=== PATIENT | female | born 1950 | race Caucasian/White ===

== ENCOUNTER 2016-10-19 18:04 | Inpatient (IN) | payer BC, OTHER ==
[~2016-10-19] VITALS: Ht 162.6 cm; Wt 83.4 kg
[2016-10-19] MEDS ORDERED: NURSING VERBAL MED ORDER ONE ×4 (21:45→23:00)
[2016-10-19] MEDS ORDERED: ACETAMINOPHEN 325 MG TAB PO PRN (22:00)
[2016-10-19] MEDS ORDERED: GLUCOSE 10 TABS/TUBE PO PRN (22:15)
[2016-10-19] MEDS ORDERED: DEXTROSE 50% 50 ML SYR IV PRN (22:15)
[2016-10-19] MEDS ORDERED: GLUCOSE 40% GEL 15 GM TUBE PO PRN (22:15)
[2016-10-19] MEDS ORDERED: GLUCAGON FOR INJ 1 MG VIAL SQ PRN (22:15)
[2016-10-19] MEDS ORDERED: HEPARIN IV LOW DOSE NO BOLUS SCH (22:15)
[2016-10-19 22:22] VITALS: BMI 35.8
--- NOTE | 2016-10-19 22:39 | DIAGNOSTIC IMAGING REPORT ---
SINGLE VIEW CHEST CLINICAL HISTORY: Pneumonia. FINDINGS: An AP, portable, upright chest radiograph is obtained. No prior studies are available for comparison at the time of dictation. The examination is degraded by portable technique and patient rotation. The cardiomediastinal silhouette is unremarkable. There is atherosclerotic calcification of the thoracic aorta. Left basilar atelectasis is observed. The lungs and pleural spaces are otherwise clear. No pneumothorax is seen. The skeletal structures are osteopenic. The bony thorax is grossly intact. IMPRESSION: No acute cardiopulmonary abnormality. Electronically signed by: Hermelindo Cowart M.D. 10/19/2016 10:38 PM Dictated Date/Time: 10/19/2016 10:36 PM
[2016-10-19] MEDS ORDERED: HEPARIN 25,000 UNIT/500ML D5W 500 ML IV PRN (22:45)
[2016-10-19] MEDS ORDERED: ONDANSETRON INJ 2 MG/ML 2 ML VIAL IV PRN (22:45)
[2016-10-19] MEDS ORDERED: SODIUM CHLORIDE 0.9% 1000ML 1,000 ML IV SCH (22:45)
[2016-10-19 22:50] LABS: HEMATOCRIT 25.6 % (37-47); MEAN CELL VOLUME 90.8 fL (80-100); MEAN CORPUSCULAR HEMOGLOBIN 30.5 pg (25-34); MEAN PLATELET VOLUME 9.3 fL (7.4-10.4); PLATELET COUNT 525 K/uL (130-400); RED BLOOD COUNT 2.82 M/uL (4.2-5.4); WHITE BLOOD COUNT 21.35 K/uL (4.8-10.8)
[2016-10-19] MEDS ORDERED: CIPROFLOXACIN 500 MG TAB PO SCH (23:00)
[2016-10-19] MEDS ORDERED: INSULIN ASPART 100 UNITS/ML 3 ML PEN SC ONE (23:00)
[2016-10-19] MEDS ORDERED: DILT240C57 PO (23:01)
[2016-10-19] MEDS ORDERED: CIPR1TAB11 PO (23:01)
[2016-10-19] MEDS ORDERED: CHOL1CAP57 PO (23:01)
[2016-10-19] MEDS ORDERED: FOLI1TAB7 PO (23:01)
[2016-10-19] MEDS ORDERED: FAMO20TA11 PO (23:01)
[2016-10-19] MEDS ORDERED: GLIP1TAB85 PO (23:01)
[2016-10-19] MEDS ORDERED: NVLG SQ (23:01)
[2016-10-19] MEDS ORDERED: INSDGI SC (23:01)
[2016-10-19] MEDS ORDERED: HYDR-5688 PO (23:01)
[2016-10-19] MEDS ORDERED: ONDA8TAB62 SL (23:01)
[2016-10-19] MEDS ORDERED: DOCU-94 PO (23:01)
[2016-10-19 23:06] LABS: MEAN CORPUSCULAR HGB CONC 33.6 g/dl (32-36)
[2016-10-19 23:07] LABS: INR 1.3 (0.9-1.1); PARTIAL THROMBOPLASTIN RATIO 2.1; PROTHROMBIN TIME (PATIENT) 13.7 SECONDS (9.0-12.0)
[2016-10-19 23:12] VITALS: BP 147/90; PULSE 126; TEMP 36.8; O2SAT 99; BMI 35.8
[2016-10-19 23:12] LABS: BUN/CREATININE RATIO 19.1 (10-20); CALCIUM 7.9 mg/dl (8.5-10.1); CREATININE 1.1 mg/dl (0.60-1.20); MAGNESIUM 1.6 mg/dl (1.8-2.4); PHOSPHORUS 2.8 mg/dl (2.5-4.9); POTASSIUM 3.9 mmol/L (3.5-5.1)
[2016-10-19] MEDS ORDERED: ETHYL CHLORIDE AER SPR 100 ML CAN EXT PRN (23:15)
[2016-10-19 23:17] LABS: ANISOCYTOSIS PRESENT; BASO % 0.1 %; BASO ABS # 0.03 K/uL (0-0.2); COMPLETE YES; DOHLE BODIES 1+; IG% 0.6 %; LYMPH % 3.3 %; MONO % 4.4 %; NEUT % 91.6 %; POLYCHROMASIA 1+
[2016-10-19] MEDS ORDERED: MAGNESIUM SULFATE 1GM / D5W 1 GM in PREMIXED IN D5W 100 ML IV STA (23:41)
[2016-10-19] MEDS: NSS + 20MEQ KCL 1000ML 1,000 ML IV SCH (23:52)
[2016-10-20] VITALS (20 sets, daily range): BP systolic 94–146; BP diastolic 52–94; PULSE 100–120; TEMP 36.7–38.7; O2SAT 90–100; Ht 162.6 cm; Wt 83.4 kg
--- NOTE | 2016-10-20 04:03 | CONSULTATION REPORT ---
DATE OF CONSULTATION: 10/19/2016 PRIMARY CARE PHYSICIAN: Dr. Nuñez, out of area. CONSULT REQUESTED BY: Dr. Car for medical management of the patient with septic left knee joint with atrial fibrillation. HISTORY OF PRESENT COMPLAINT: She is a 66-year-old female with significant past medical history of hypertension, hyperlipidemia, diabetes, on insulin, peripheral vascular disease with venous insufficiency and also atrial fibrillation. Apparently, has had amputation of medial 3 toes on the right side on 29 of September in [facility]. She has had a prolonged hospital course and following that, she went to rehab at [facility]. She stayed there until this morning. She was on physical therapy but has not been doing well on the physical therapy because of ongoing pain and swelling of the left leg, especially the knee joint. She complains to have more pain and warmth of the left knee joint for the last few days or even a week. No history of fever, chills or rigors associated with it but she gets extreme pain when any pressure on the left leg and for that reason, she was taken to the [facility] today and there, she was noted to have tachycardia with atrial fibrillation and RVR and also left knee was noted to be probably septic with a white count of 22,000, left shift and ESR of 104. The orthopaedic surgeon in the [facility] was consulted and the patient was transferred to be under their care and medicine was consulted for ongoing medical management. The patient denies history of any chest pain, any palpitation, any shortness of breath on the floor. She does not have any nausea, vomiting or any abdominal pain or distention. She complains to have pain in the left knee joint when any kind of movement with swelling of the left knee joint as well. She does have some pain in the right foot but no other significant symptoms. PAST MEDICAL HISTORY: Significant for hypertension, hyperlipidemia, peripheral vascular disease with venous insufficiency, atrial fibrillation and osteoarthritis. PAST SURGICAL HISTORY: Left total knee arthroplasty, I believe in 1999, cataract surgery and vein stripping and also recent amputation of the right medial 3 toes on 19 of September in [facility]. ALLERGIES: SHE IS ALLERGIC TO RASHAAD INHIBITOR, LIPITOR, ZOCOR, ONGLYZA, VANCOMYCIN AND ZOSYN. FAMILY HISTORY: Nothing contributory at this time. SOCIAL HISTORY: She was in the rehab facility recently. She denies any tobacco and/or alcohol use or drug use. She used to live alone independently. MEDICATIONS: Noted in the chart, Cardizem CD 240 mg daily, Cipro 500 mg every 12 hours, Colace 100 mg twice daily, folic acid 1 mg daily, Glucotrol XL 10 mg daily, Lantus 18 units twice a day, [place] 5/325 one every 4 hours as needed, NovoLog 4 times daily as directed, Pepcid 20 mg, vitamin D 1000 units daily and Zofran 4 mg oral as directed. She received 1 dose of Invanz at the hospital facility there. REVIEW OF SYSTEMS: As in history of present complaint. PHYSICAL EXAMINATION: GENERAL: On examination on the medical floor, she was not having any acute distress. She looked generally weak and lethargic but no confusion. VITAL SIGNS: Still pending but vitals from the prior hospital, heart rate was 104 and irregular, blood pressure 149/86, respirations 18 and saturation 95% on room air. HEENT: Unremarkable. NECK: Supple. No JVD, no bruit. CHEST: Decreased breath sounds bilaterally, otherwise clear. HEART: S1, S2 irregular with a 2/6 systolic murmur over precordium. ABDOMEN: Soft, benign, nontender, no organomegaly. Bowel sounds present. EXTREMITIES: Trace edema both sides, more on the right than the left. Left knee joint is swollen with increased local temperature and extremely painful with any kind of movement. Right foot medial aspect is bandaged with status post medial 3 toes taken off on 19 of September and showing a deep necrotic ulceration at the base but no drainage. Pulses are not palpable on either side. CENTRAL NERVOUS SYSTEM: Alert, awake, oriented, generally weak. LABORATORY DATA: Noted from [facility] today, white count was 22,000, hemoglobin 8.28 and hematocrit 25.5, platelet was 492. Protime 18.5, INR 1.7, PTT was 44. Sodium 130, chloride 92, glucose 275. UA examination: Protein 3+, blood 2+, glucose 3+, ketones 2+, bacteria 2+. Urine culture, wound culture, blood culture have been sent. X-ray of the knee is no fracture with fluid in the knee joint. Ultrasound of the left lower extremity, no DVT. EKG is pending. Chest x-ray portable one is pending right now. I cannot find any electrolyte that was done in the hospital. IMPRESSION AND PLAN: 1. Septic arthritis involving left knee. The patient was admitted to telemetry unit under orthopedic service. Ortho has been notified and mostly, they will aspirate the joint and go from there. We will hold off any kind of antibiotic at this time.ID consultation will be taken as well. 2. Atrial fibrillation with rapid ventricular response. She was on Coumadin. Her INR is 1.7. We will put her on low-dose heparin without any bolus while in the hospital. Continue with her Cardizem in the hospital as well for rate control. 3. Hypertension. Blood pressure seems to be stable. Continue with current medications. 4. Right foot toe amputations. We will get wound care consult for that. Wound culture has been taken. We will await for that sensitivity. 5. Diabetes. The patient has been on insulin, which is on hold now. We will put her on sliding scale coverage while in the hospital. Get a hemoglobin A1c tomorrow. 6. Peripheral vascular disease. The patient may have significant the peripheral vascular disease and we may need to consult vascular surgery while in the hospital for further evaluation. 7. Gastrointestinal prophylaxis with Protonix. 8. Deep venous thrombosis prophylaxis. The patient will be on heparin. We will hold off any Coumadin at this time. 9. Code status. She will be a full code. Thank you for this consultation. I will be following this patient with you during this hospitalization. DEB
[2016-10-20 06:05] LABS: HEMATOCRIT 24.1 % (37-47); MEAN CELL VOLUME 89.9 fL (80-100); MEAN CORPUSCULAR HEMOGLOBIN 29.9 pg (25-34); MEAN CORPUSCULAR HGB CONC 33.2 g/dl (32-36); MEAN PLATELET VOLUME 9.3 fL (7.4-10.4); PLATELET COUNT 487 K/uL (130-400); RED BLOOD COUNT 2.68 M/uL (4.2-5.4); WHITE BLOOD COUNT 20.18 K/uL (4.8-10.8)
[2016-10-20 06:44] LABS: THYROID STIMULATING HORMONE 0.61 uIu/ml (0.300-4.500)
[2016-10-20 07:09] LABS: ESTIMATED AVERAGE GLUCOSE 174 mg/dl; HA1C FLAG Normal (Normal)
[2016-10-20] MEDS ORDERED: FAMOTIDINE 20 MG TAB PO SCH (09:00)
[2016-10-20] MEDS ORDERED: DOCUSATE SODIUM 100 MG CAP PO SCH (09:00)
[2016-10-20] MEDS: NSS + 20MEQ KCL 1000ML 1,000 ML IV SCH ×2 (09:58→20:54)
[2016-10-20] MEDS: DILTIAZEM HCL 240 MG CAPCR PO SCH (10:13)
[2016-10-20] MEDS: INSULIN ASPART 100 UNITS/ML 3 ML PEN SC SCH ×5 (10:15→23:36)
--- NOTE | 2016-10-20 10:22 | Medical Consult ---
Consultation Date of Consultation: Oct 20, 2016. Attending Physician: Prasanna Car D.O. Reason for Consultation: Septic left knee History of Present Illness Patient is a 66-year-old diabetic female who was transferred to [facility] from [facility] in [place] for concerns of septic left TKA. The patient does also have history of peripheral vascular disease. She had an amputation completed of her 1st 3 toes on the right foot on September 29 at [facility]. Following her hospitalization, she was transferred to a rehab facility. During the time at the rehab facility, the patient states that she generally became more ill. She started have sweats, chills, nausea, and vomiting. She states that over the past few days, she has noted increased swelling in her left knee. She was not experiencing any pain initially in the knee. Upon presentation to [facility], the patient was noted to be tachycardic with atrial fibrillation [place] a [place] [address] with an ESR of 104. The patient was transferred have that time to [facility] for concerns of left septic TKA. The patient did have her knee replaced [place] [address] Ibarra. Since admission to [facility], the patient was noted to have a white blood cell count of 21.35. Her ESR today is 20. Her C reactive protein was 41 her creatinine was 1.10 on admission. She did have an aspiration completed of her left knee by Christ Newton PA-C. It was noted that there are many red blood cells and white blood cells in the synovial fluid. Culture is pending. She was placed on p.o. Cipro. I did discuss this patient with Christ Newton as well from orthopedics. The patient's chest x-ray showed no acute process. Past Medical/Surgical History Medical Problems: (1) Atrial fibrillation (2) Septic arthritis of knee, left (3) PVD (4) Diabetes Surgical Hx: Left knee replacement (1999) Right great, 2nd and 3rd toe amputations (2016) Family History Noncontributory Social History Smoking Status: Never Smoker Allergies Coded Allergies: RASHAAD Inhibitors (Verified Allergy, Unknown, RASH, 10/19/16) unknown reaction Atorvastatin (Verified Allergy, Unknown, rash, 10/19/16) unknown reaction Ertapenem (Verified Allergy, Unknown, rash, 10/19/16) unknown reaction Piperacillin (Verified Allergy, Unknown, rash, 10/19/16) Saxagliptin (Verified Allergy, Unknown, rash, 10/19/16) unknown reaction Simvastatin (Verified Allergy, Unknown, rash, 10/19/16) unknown reaction Tazobactam (Verified Allergy, Unknown, rash, 10/19/16) Vancomycin (Verified Allergy, Unknown, rash, 10/19/16) Home Medications Reported Home Medications Medications Dose Route/Sig Max Daily Dose Days Date Category Dose Instructions Novolog (Insulin Aspart) 100 Units/Ml Inj SQ QID 10/19/16 Reported Vitamin D3 (Cholecalciferol) 1,000 Unit Cap PO DAILY 10/19/16 Reported Zofran Odt (Ondansetron HCl) 8 Mg Soltab 4 Mg SL Q4H PRN 10/19/16 Reported Pepcid (Famotidine) 20 Mg Tab 20 Mg PO 10/19/16 Reported [place] 5MG/325MG (Acetaminophen/Hydrocodone Bitart) Tab 1 Tab PO Q4 30 10/19/16 Reported PRN PAIN Lantus (Insulin Glargine) 100 Unit/Ml Inj 18 SC BID 10/19/16 Reported Glucotrol Xl (Glipizide) 10 Mg Tab 10 Mg PO QAM 10/19/16 Reported Cipro (Ciprofloxacin) 250 Mg Tab 500 Mg PO Q12 10/19/16 Reported Folvite (Folic Acid) 1 Mg Tab 1 Tab PO DAILY 90 10/19/16 Reported Colace (Docusate Sodium) 100 Mg Cap 1 Cap PO BID 15 10/19/16 Reported Cardizem Cd (Diltiazem Hcl Coated Beads) 240 Mg Cap 1 Cap PO DAILY 30 10/19/16 Reported Current Inpatient Medications Current Inpatient Medications Medications (Trade) Dose Ordered Sig/Denisse Route Start Time Stop Time Status Last Admin Dose Admin Insulin Aspart (novoLOG ASPART) SLIDING SCALE G... ACHS SC 10/20/16 07:00 11/19/16 06:59 Acetaminophen (Tylenol Tab) 650 mg Q4H PRN PO 10/19/16 22:00 11/18/16 21:59 Glucose (Glucose 40% Gel) 15-30 GRAMS 15 GRAMS... UD PRN PO 10/19/16 22:15 11/18/16 22:14 Glucose (Glucose Chew Tab) 4-8 Tablets 4 Tabl... UD PRN PO 10/19/16 22:15 11/18/16 22:14 Dextrose (Dextrose 50% 50ML Syringe) 25-50ML OF 50% DW IV FOR... UD PRN IV 10/19/16 22:15 11/18/16 22:14 Glucagon (Glucagon Inj) 1 mg UD PRN SQ 10/19/16 22:15 11/18/16 22:14 Ondansetron HCl 4 mg 4 mg Q4H PRN IV 10/19/16 22:45 11/18/16 22:44 Heparin Sodium/ Dextrose (Heparin 25,000 Unit/500ml D5W) 500 ml @ 17 mls/hr Q24H PRN IV 10/19/16 22:45 11/18/16 22:44 Hydromorphone HCl (Dilaudid Inj) 0.2 mg Q4H PRN IV 10/19/16 22:45 11/02/16 22:44 Diltiazem HCl (Cardizem Cd Cap) 240 mg DAILY PO 10/20/16 09:00 11/19/16 08:59 Ciprofloxacin (Cipro Tab) 500 mg Q12 PO 10/19/16 23:00 10/21/16 22:59 Docusate Sodium (coLACE CAP) 100 mg BID PO 10/20/16 09:00 11/19/16 08:59 Glipizide (GlipiZIDE EXTENDED REL TAB) 10 mg DAILY PO 10/20/16 09:00 11/19/16 08:59 Famotidine (Pepcid Tab) 20 mg DAILY PO 10/20/16 09:00 11/19/16 08:59 Acetaminophen/ Hydrocodone Bitart ([place] 5/325 Tab) 1 tab Q4H PRN PO 10/19/16 23:00 11/02/16 22:59 Folic Acid (Folvite Tab) 1 mg DAILY PO 10/20/16 09:00 11/19/16 08:59 Ethyl Chloride 1 ml 1 ml UD PRN EXT 10/19/16 23:15 10/20/16 18:00 Potassium Chloride/Sodium Chloride (Nss + 20meq KCl 1000ml) 1,000 ml @ 100 mls/hr Q10H IV 10/19/16 23:45 11/18/16 23:44 10/19/16 23:52 100 MLS/HR Review of Systems Constitutional: + chills, + sweats, + weakness, No fever Eyes: No worsening of vision ENT: No hearing loss Respiratory: No cough, No shortness of breath Cardiovascular: No chest pain Abdomen: + pain, + vomiting, No diarrhea Musculoskeletal: + joint pain, + problem reported (recent right foot amputation ), + swelling (left knee) Genitourinary - Female: No dysuria, No urinary frequency, No urinary urgency Integumentary: No itch, No rash Physical Exam Date Time Temp Pulse Resp B/P Pulse Ox O2 Delivery O2 Flow Rate FiO2 10/20/16 07:22 37.0 110 30 142/94 90 Room Air 10/20/16 04:10 93 Room Air 10/20/16 04:00 36.9 109 21 135/77 95 Room Air 10/20/16 02:47 36.9 10/20/16 02:10 138/74 10/20/16 00:00 Nasal Cannula 2.0 10/20/16 00:00 38.7 105 22 145/92 98 Nasal Cannula 2.5 10/19/16 23:12 36.8 126 18 147/90 99 Nasal Cannula 2.0 General Appearance: WD/WN, + mild distress Head: normocephalic, atraumatic Eyes: normal inspection, sclerae normal ENT: hearing grossly normal Neck: supple, trachea midline Respiratory/Chest: chest non-tender, lungs clear, normal breath sounds, no respiratory distress, no accessory muscle use Cardiovascular: + systolic murmur (very soft), + irregularly irregular Abdomen/GI: normal bowel sounds, non tender, soft Extremities/Musculoskelatal: + pertinent finding (left knee wrapped with RASHAAD badnage. Tenderness of surrounding areas. Right foot wrapped with gauze.) Neurologic/Psych: alert, normal mood/affect Skin: normal color, warm/dry Laboratory Results SINGLE VIEW CHEST CLINICAL HISTORY: Pneumonia. FINDINGS: An AP, portable, upright chest radiograph is obtained. No prior studies are available for comparison at the time of dictation. The examination is degraded by portable technique and patient rotation. The cardiomediastinal silhouette is unremarkable. There is atherosclerotic calcification of the thoracic aorta. Left basilar atelectasis is observed. The lungs and pleural spaces are otherwise clear. No pneumothorax is seen. The skeletal structures are osteopenic. The bony thorax is grossly intact. IMPRESSION: No acute cardiopulmonary abnormality. Item Value Date Time Gram Stain Received 10/20/16 0852 Joint Fluid/Space (Synovial) Knee Left Pending Last 24 Hours Test 10/19/16 22:04 10/19/16 22:40 10/20/16 05:45 10/20/16 06:36 Bedside Glucose 329 mg/dl 321 mg/dl White Blood Count 21.35 K/uL 20.18 K/uL Red Blood Count 2.82 M/uL 2.68 M/uL Hemoglobin 8.6 g/dL 8.0 g/dL Hematocrit 25.6 % 24.1 % Mean Corpuscular Volume 90.8 fL 89.9 fL Mean Corpuscular Hemoglobin 30.5 pg 29.9 pg Mean Corpuscular Hemoglobin Concent 33.6 g/dl 33.2 g/dl Platelet Count 525 K/uL 487 K/uL Mean Platelet Volume 9.3 fL 9.3 fL Neutrophils (%) (Auto) 91.6 % Lymphocytes (%) (Auto) 3.3 % Monocytes (%) (Auto) 4.4 % Eosinophils (%) (Auto) 0.0 % Basophils (%) (Auto) 0.1 % Neutrophils # (Auto) 19.54 K/uL Lymphocytes # (Auto) 0.70 K/uL Monocytes # (Auto) 0.95 K/uL Eosinophils # (Auto) 0.00 K/uL Basophils # (Auto) 0.03 K/uL RDW Standard Deviation 50.0 fL 49.2 fL RDW Coefficient of Variation 15.0 % 15.0 % Immature Granulocyte % (Auto) 0.6 % Immature Granulocyte # (Auto) 0.13 K/uL Dohle Bodies 1+ Polychromasia 1+ Anisocytosis PRESENT Prothrombin Time 13.7 SECONDS Prothromb Time International Ratio 1.3 Activated Partial Thromboplast Time 55.6 SECONDS 53.1 SECONDS Partial Thromboplastin Ratio 2.1 2.0 Sodium Level 133 mmol/L Potassium Level 3.9 mmol/L Chloride Level 93 mmol/L Carbon Dioxide Level 26 mmol/L Anion Gap 14.0 mmol/L Blood Urea Nitrogen 21 mg/dl Creatinine 1.10 mg/dl Est Creatinine Clear Calc Drug Dose 55.3 ml/min Estimated GFR () 60.2 Estimated GFR (Non- 51.9 BUN/Creatinine Ratio 19.1 Random Glucose 299 mg/dl Calcium Level 7.9 mg/dl Phosphorus Level 2.8 mg/dl Magnesium Level 1.6 mg/dl Hepatitis C Antibody Screen NEG Erythrocyte Sedimentation Rate 20 mm/hr Estimated Average Glucose 174 mg/dl Hemoglobin A1c 7.7 % C-Reactive Protein 41.00 mg/dl Thyroid Stimulating Hormone (TSH) 0.610 uIu/ml Test 10/20/16 08:25 Assessment & Plan Diabetic female with probable left septic TKA, probable wound infection of the right lower extremity amputation site with exposed bone, gram positive bacteremia confirmed from [facility] cultures, and sepsis. She is currently on PO Cipro alone. She has multiple allergies, so will start IV Daptomycin, Cefepime, and Flagyl. Wound culture of right lower extremity amputation site ordered. Repeat blood cultures ordered. Also recommend that this patient be evaluated by orthopedics for right foot amputation site infection as well. Echocardiogram also ordered. Noted aspirate of left knee pendingWe will follow this patient. Plan: 1. Repeat blood cultures 2. Wound culture right foot amputation site- Need Orthopedics to evaluate right foot amputation site as well- likely osteomyelitis/wound infection with exposed bone 3. Follow left knee culture 4. Echo 5. Start IV Cefepime, Flagyl, and Daptomycin pending cultures 6. D/C PO Cipro case reviewed and agree with above assessment, will continue IV abx and follow cultures
[2016-10-20 11:23] LABS: FLUID APPEARANCE CLOUDY; FLUID RBC (A) 385000 /uL; FLUID WBC (A) 299800 /uL
[2016-10-20 11:24] LABS: FLUID MONONUC 34.9 %; FLUID POLYNUC 65.1 %
[2016-10-20 11:25] LABS: FLUID MONONUCLEAR MAN 34.9 %; FLUID POLYNUCLEAR MAN 65.1 %
[2016-10-20] MEDS: CEFEPIME IV 2,000 MG in DEXTROSE 5% 100ML 100 ML IV SCH ×2 (12:20→23:42)
[2016-10-20] MEDS: DAPTOmycin IV 375 MG in SODIUM CHLORIDE 0.9% 50ML 50 ML IV SCH (12:20)
[2016-10-20] MEDS: METRONIDAZOLE / NSS 500 MG in PREMIXED NSS 100 ML IV SCH ×2 (12:20→19:23)
--- NOTE | 2016-10-20 12:41 | HISTORY & PHYSICAL EXAMINATION ---
DATE OF ADMISSION: 10/19/2016 SUBJECTIVE AND CHIEF COMPLAINT: Left knee pain. HISTORY OF PRESENT ILLNESS: This is a patient who was admitted at [facility] in [place] for left knee pain and possible infected total knee arthroplasty. She had also had previous procedures done in [facility] on her right foot with amputations of the 2nd, 3rd and 4th toes. That procedure was on 09/29/2016. Approximately 4 days ago, she started having significant pain within the left knee and inability to ambulate or perform any range of motion of left knee. It was felt that she had probable infected total knee on the left side. Blood cultures were also done at the hospital. The hospital then was in touch with Dr. Car from our practice to set up a transfer to [facility] for evaluation of the left knee. PAST MEDICAL HISTORY: Hypertension, hyperlipidemia, peripheral vascular disease with venous insufficiency, atrial fibrillation, osteoarthritis and diabetes. PAST SURGICAL HISTORY: Left total knee arthroplasty in 1999, cataract surgery, vein stripping surgery, right toe amputations done in September of this year. ALLERGIES: RASHAAD INHIBITORS, LIPITOR, ZOCOR, ONGLYZA, VANCOMYCIN AND ZOSYN. FAMILY HISTORY: Noncontributory. SOCIAL HISTORY: The patient denies alcohol and tobacco use. CURRENT HOME MEDICATIONS: Cardizem CD 240 mg daily, Cipro 500 mg p.o. q. 12 hours, Colace 100 mg p.o. b.i.d., folic acid 1 mg p.o. daily, Glucotrol XL 10 mg 1 p.o. daily, Lantus 18 units subcu b.i.d., NovoLog 4 times a day as directed, Pepcid 20 mg p.o. daily, vitamin D supplement 1000 units p.o. daily, Zofran 4 mg 1 p.o. p.r.n. nausea, and [place] 5/325 mg 1 p.o. q. 4 hours as needed. OBJECTIVE PHYSICAL EXAMINATION: GENERAL: The patient is alert and oriented x3. She is in no acute distress. She is lying fairly comfortably in bed in the ICU. She appears to be a well-nourished 66-year-old female. CARDIOVASCULAR: Heart has an irregularly irregular rhythm with a systolic murmur noted. LUNGS: Clear to auscultation bilaterally, however, decreased breath sounds. VASCULAR: Cap refill is slow bilateral lower extremities. Dorsalis pedis pulses are faint. LYMPHATICS: There is no evidence of any swollen lymph nodes. MUSCULOSKELETAL: Upon inspection of the patient's left lower extremity, there is mild effusion noted to left knee. There is no erythema noted. There is warmth noted with light palpation of the left knee. With any range of motion or with any palpation of left knee, there is significant pain elicited. There are no open areas or draining areas noted of the left knee. She has well-healed surgical incisions at the anterior aspect of the left knee. Right lower extremity, there is exposed bone noted at the sites of the toe amputations. The patient has a dressing over the right lower extremity with a soft gauze dressing with gauze wrap over top. NEUROLOGIC: Sensation appears to be normal and intact in bilateral lower extremities to light touch. ASSESSMENT AND DIAGNOSES: 1. Septic left knee status post left total knee arthroplasty in 04/[address] Ibarra. 2. Probable osteomyelitis and infection of the right lower extremity status post toe amputation of the 2nd, 3rd and 4th toes done in [facility] approximately 1 month ago with exposed bone on the right foot. 3. Bacteremia, probably secondary to the wound at the right lower extremity and also probably the reason for the infected left total knee arthroplasty. Also positive blood cultures from [facility] and repeat blood cultures are being performed now at [facility]. PLAN: Above assessment was discussed with the patient. Today, under sterile technique, the patient's left knee was aspirated with an 18-gauge needle. Approximately 25 mL of a purulent bermudez and bloody aspirate were aspirated from the left knee. The aspirate was then sent for cell count, Gram stain, and aerobic and anaerobic cultures. The Gram stain was positive for gram-positive cocci and many white blood cells. The case will be discussed with Dr. Car as well as Dr. Ibarra. After the patient is cleared medically for surgery, she will require left knee I\T\D with poly exchange versus left knee I\T\D and explanting of left total knee arthroplasty. Her right lower extremity will also need to be addressed with probable transmetatarsal amputation. At this time, we will have Dr. Botello consulted to evaluate the patient's blood flow into her right lower extremity to check for viability of the transmetatarsal amputation on the right lower extremity. Once all information has been obtained, surgical plan will be made for both lower extremities. At this time, she will continue to be treated with IV antibiotics per ID. As all information is gathered, definitive treatment will be determined and surgical management will be scheduled. DEB
[2016-10-20] MEDS ORDERED: NURSING VERBAL MED ORDER ONE ×2 (15:45→17:00)
[2016-10-20] MEDS ORDERED: DILTIAZEM HCL 5 MG/ML 5 ML VIAL ONE (15:54)
[2016-10-20] MEDS ORDERED: PHARMACY GLYCEMIC MGMT CONSULT PRN (15:55)
[2016-10-20] MEDS ORDERED: DILTIAZEM HCL INJ 125 MG in DEXTROSE 5% 100ML IV PRN (16:00)
[2016-10-20] MEDS ORDERED: DILTIAZEM HCL 5 MG/ML 5 ML VIAL IV SCH (16:00)
[2016-10-20] MEDS ORDERED: SODIUM CHLORIDE 0.9% 1000ML 1,000 ML IV SCH (16:00)
[2016-10-20] MEDS ORDERED: METOPROLOL TARTRATE 1 MG/ML VIAL ONE (16:21)
--- NOTE | 2016-10-20 16:24 | Pharmacy Progress Note ---
Glycemic Control Intl Consult Date of Service Oct 20, 2016. Scope Glycemic Pharmacist consulted by Dr Betancourt on 10/20/16 for glycemic control and to write orders per [facility] inpatient glycemic control protocol Objective Weight (Kilograms): 94.900 Accuchecks BSG (last 24hrs): Test 10/19/16 22:04 10/19/16 22:40 10/20/16 06:36 10/20/16 11:24 Bedside Glucose 329 mg/dl (70-90) 321 mg/dl (70-90) 265 mg/dl (70-90) Random Glucose 299 mg/dl (70-99) Test 10/20/16 15:57 10/20/16 15:58 Bedside Glucose 260 mg/dl (70-90) Laboratory Data (last 24hrs) Test 10/19/16 22:40 10/20/16 05:45 10/20/16 15:57 Anion Gap 14.0 mmol/L BUN/Creatinine Ratio 19.1 Blood Urea Nitrogen 21 mg/dl Creatinine 1.10 mg/dl Potassium Level 3.9 mmol/L Sodium Level 133 mmol/L White Blood Count 21.35 K/uL 20.18 K/uL Red Blood Count 2.82 M/uL Hemoglobin 8.6 g/dL Hematocrit 25.6 % Mean Corpuscular Volume 90.8 fL Mean Corpuscular Hemoglobin 30.5 pg Mean Corpuscular Hemoglobin Concent 33.6 g/dl Platelet Count 525 K/uL Mean Platelet Volume 9.3 fL Neutrophils (%) (Auto) 91.6 % Lymphocytes (%) (Auto) 3.3 % Monocytes (%) (Auto) 4.4 % Eosinophils (%) (Auto) 0.0 % Basophils (%) (Auto) 0.1 % Neutrophils # (Auto) 19.54 K/uL Lymphocytes # (Auto) 0.70 K/uL Monocytes # (Auto) 0.95 K/uL Eosinophils # (Auto) 0.00 K/uL Basophils # (Auto) 0.03 K/uL Hemoglobin A1c 7.7 % HbA1c Test 10/20/16 05:45 Hemoglobin A1c 7.7 % (4.5-5.6) H Recent Pertinent Medications Outpatient Anti-diabetic Regimen: * Lantus 18 units BID + Glipizide XL 10 mg PO daily + moderate sliding scale of Novolog * A1c = 7.7 % 10/20/16 The patient is currently receiving: * Correctional Insulin: Novolog Correction per scale ACHS Goal Range: Low 110 mg/dL - High 140 mg/dL Correction Factor: 25 mg/dL/unit * Prandial insulin: Per carb ratio of 1 unit per 15 grams CHO consumed Risk Factors for Insulin Resistance: * Steroids: * Infection: septic TKA * Pressors: * IVF: NS + 20 KCL at 100 mls/hr + antibiotics (daptomycin, cefepime, metronidazole) + diltiazem gtt + heparin gtt * Recent Surgery: aspiration of knee (TKA in 1999) * Diet: NPO after midnight * Mechanical Ventilation: Assessment & Plan ASSESSMENT: * ADA & AACE recommend a goal blood sugar range 140-180 mg/dl for the majority of critically ill & non-critically ill patients. However, more stringent targets may be selected in individual cases. PLAN FOR INPATIENT GLYCEMIC CONTROL: * Holding outpatient oral diabetes medications * Basal insulin with LANTUS 18 units SQ BID --> one dose for tonight entered reassess in AM for dose * Correctional Insulin with NOVOLOG per scale ACHS or Q6hrs while NPO * Goal Range: Low 110 mg/dL - High 140 mg/dL * Correction Factor: 25 mg/dL/unit * Nutritional / Prandial insulin per carb ratio of 1 unit per 8 grams CHO consumed * Please note that the plan above was derived based on current level of insulin resistance and hospital stress. These recommendations are appropriate for inpatient admission only. Plan of care upon discharge will need to be reassessed to avoid potential outpatient hypo/hyperglycemia. Thank you.
[2016-10-20 16:32] LABS: HEMATOCRIT 22.1 % (37-47); MEAN CELL VOLUME 87.4 fL (80-100); MEAN CORPUSCULAR HEMOGLOBIN 29.2 pg (25-34); MEAN CORPUSCULAR HGB CONC 33.5 g/dl (32-36); MEAN PLATELET VOLUME 8.9 fL (7.4-10.4); PLATELET COUNT 446 K/uL (130-400); RED BLOOD COUNT 2.53 M/uL (4.2-5.4); WHITE BLOOD COUNT 19.04 K/uL (4.8-10.8)
--- NOTE | 2016-10-20 16:52 | Critical Care Consultation ---
Critical Care Consultation Date of Consultation: Oct 20, 2016. Attending Physician: Prasanna Car D.O. Reason for Consultation: sepsis History of Present Illness This is a 66 yo f that is presenting to us from [facility] ([place] outside of [place]. The patient was seen in [place] for an amputation of the right lower extremity toes because of PVD and DM. She was then sent to [facility] ([facility] for ongoing care. She was placed on Cipro 500 mg PO bid post operatively. While she was at the hospital she noticed increasing weakness and in particular increasing redness/ swelling of the left knee. This is the knee that was replaced by Dr Ibarra in [place] in 1999. She was sent to the [facility] for evaluation and an orthopedic saw the surgeon. Upon his recommendation and her leukocytosis, fever, afibb with rvr and concern for septic arthritis the patient was transferred to [place]. She was assessed in the telemetry unit however because of the growing concern for patient's hemodynamic status she was transferred to the ICU. A fibb was rate controlled after a bolus of 10 mg of diltiazem and 2.5 mg of Lopressor. She states that she is generally feeling unwell and the only pain is in her left knee. The knee was aspirated by the ortho PA and she was found to have pus on aspiration. gram stain revealed gram positive cocci. She was started on Cefepime, daptomycin and flagyl; she apparently has had red man syndrome with vanco. She was also started on a liter of fluid on her way to the ICU. She is currently hemodynamically stable. When discussing past medical history she states that she is in chronic a fibb. She does take cardizem for this. When asked about warfarin she states she was on it in the hospital but was unsure if she was on it anymore. Also, when asked about transfusions she states that she actually had one recently for a low blood count. She is unsure why her blood count was low and who administered it. Past Medical/Surgical History DMII HTN Hyperchol PVD A fibb right toe amputation left knee arthroplasty Family History No pertinent family history Social History Smoking Status: Never Smoker Smokeless Tobacco Use: No Alcohol Use: none Drug Use: none Allergies Coded Allergies: RASHAAD Inhibitors (Verified Allergy, Unknown, RASH, 10/19/16) unknown reaction Atorvastatin (Verified Allergy, Unknown, rash, 10/19/16) unknown reaction Ertapenem (Verified Allergy, Unknown, rash, 10/19/16) unknown reaction Piperacillin (Verified Allergy, Unknown, rash, 10/19/16) Saxagliptin (Verified Allergy, Unknown, rash, 10/19/16) unknown reaction Simvastatin (Verified Allergy, Unknown, rash, 10/19/16) unknown reaction Tazobactam (Verified Allergy, Unknown, rash, 10/19/16) Vancomycin (Verified Allergy, Unknown, rash, 10/19/16) Home Medications Scheduled Cholecalciferol (Vitamin D3), PO DAILY Ciprofloxacin Tab (Cipro), 500 MG PO Q12 Diltiazem Hcl Coated Beads (Cardizem Cd), 1 CAP PO DAILY Docusate Sodium (Colace), 1 CAP PO BID Folic Acid (Folvite), 1 TAB PO DAILY Glipizide Xl (Glucotrol Xl), 10 MG PO QAM Hydrocodone/Acetaminophen 5MG/325MG (Margie 5MG/325MG), 1 TAB PO Q4 Insulin Aspart (Novolog), SQ QID Insulin Glargine (Lantus), 18 SC BID Scheduled PRN Ondansetron Odt (Zofran Odt), 4 MG SL Q4H PRN for Nausea Miscellaneous Medications Famotidine (Pepcid), 20 MG PO Current Inpatient Medications Current Inpatient Medications Medications (Trade) Dose Ordered Sig/Denisse Route Start Time Stop Time Status Last Admin Dose Admin Insulin Aspart (novoLOG ASPART) SLIDING SCALE G... ACHS SC 10/20/16 07:00 11/19/16 06:59 10/20/16 16:04 6 UNITS Acetaminophen (Tylenol Tab) 650 mg Q4H PRN PO 10/19/16 22:00 11/18/16 21:59 Glucose (Glucose 40% Gel) 15-30 GRAMS 15 GRAMS... UD PRN PO 10/19/16 22:15 11/18/16 22:14 Glucose (Glucose Chew Tab) 4-8 Tablets 4 Tabl... UD PRN PO 10/19/16 22:15 11/18/16 22:14 Dextrose (Dextrose 50% 50ML Syringe) 25-50ML OF 50% DW IV FOR... UD PRN IV 10/19/16 22:15 11/18/16 22:14 Glucagon (Glucagon Inj) 1 mg UD PRN SQ 10/19/16 22:15 11/18/16 22:14 Ondansetron HCl (Zofran Inj) 4 mg Q4H PRN IV 10/19/16 22:45 11/18/16 22:44 Hydromorphone HCl (Dilaudid Inj) 0.2 mg Q4H PRN IV 10/19/16 22:45 11/02/16 22:44 Diltiazem HCl (Cardizem Cd Cap) 240 mg DAILY PO 10/20/16 09:00 11/19/16 08:59 Future Hold 10/20/16 10:13 240 MG Acetaminophen/ Hydrocodone Bitart (Margie 5/325 Tab) 1 tab Q4H PRN PO 10/19/16 23:00 11/02/16 22:59 Ethyl Chloride 1 ml 1 ml UD PRN EXT 10/19/16 23:15 10/20/16 18:00 Potassium Chloride/Sodium Chloride 1,000 ml @ 100 mls/hr Q10H IV 10/19/16 23:45 11/18/16 23:44 10/20/16 09:58 100 MLS/HR Metronidazole 500 mg/Prmx 100 ml @ 100 mls/hr Q8H IV 10/20/16 11:00 12/01/16 10:59 10/20/16 12:20 100 MLS/HR Cefepime HCl 2000 mg/Dextrose 112.5 ml @ 200 mls/hr Q12H IV 10/20/16 11:00 12/01/16 10:14 10/20/16 12:20 200 MLS/HR Daptomycin/Sodium Chloride (Cubicin IV/Nss 50ml) 57.5 ml @ 100 mls/hr DAILY@1200 IV 10/20/16 12:00 11/03/16 11:59 10/20/16 12:20 100 MLS/HR Miscellaneous Information 1 ea 1 ea UD PRN N/A 10/20/16 15:55 11/19/16 15:54 Diltiazem HCl/ Dextrose (Cardizem Inj/D5 100ml) 125 ml @ 0 mls/hr Q0M PRN IV 10/20/16 16:00 11/19/16 15:59 Insulin Glargine (Lantus Solostar Pen) 18 unit BID SC 10/20/16 21:00 10/20/16 21:01 Review of Systems Constitutional: + chills, + fever, + sweats Eyes: No worsening of vision ENT: No hearing loss Respiratory: No cough, No dyspnea at rest, No dyspnea on exertion, No shortness of breath, No sputum, No wheezing Cardiovascular: No chest pain Abdomen: + nausea, + vomiting, No pain Musculoskeletal: + joint pain, + swelling Genitourinary - Female: No dysuria, No hematuria Neurologic: + balance problems, + numbness/tingling, + weakness Endocrine: + fatigue Integumentary: No rash Physical Exam Date Time Temp Pulse Resp B/P Pulse Ox O2 Delivery O2 Flow Rate FiO2 10/20/16 12:00 95 Room Air 10/20/16 11:27 36.7 120 22 122/52 96 Room Air 10/20/16 08:00 93 Room Air 10/20/16 07:22 37.0 110 30 142/94 90 Room Air 10/20/16 04:10 93 Room Air 10/20/16 04:00 36.9 109 21 135/77 95 Room Air 10/20/16 02:47 36.9 10/20/16 02:10 138/74 10/20/16 00:00 Nasal Cannula 2.0 10/20/16 00:00 38.7 105 22 145/92 98 Nasal Cannula 2.5 10/19/16 23:12 36.8 126 18 147/90 99 Nasal Cannula 2.0 General Appearance: mild distress, other (flushed) Head: normocephalic, atraumatic Eyes: no discharge, EOMI, sclerae normal, conjunctivae normal ENT: other (normal inspection) Neck: normal range of motion, no tenderness Respiratory: breath sounds normal, clear to auscultation, no respiratory distress Cardiovasular: normal S1S2, no murmur, irregular rate Abdomen: non tender, normal bowel sounds, other (obese) Back: normal inspection Upper Extremities: no edema, normal ROM Lower Extremities: other (right knee painful to move, bandage surroudning the aspiration site, right foot is also bandaged--> pictures reflect poor wound healing from amputaion, bone exposure and serous drainage) Neuro: alert, oriented x 3 Psychiatric: normal affect Laboratory Results Last 24 Hours Test 10/19/16 22:04 10/19/16 22:40 10/20/16 05:45 10/20/16 06:36 Bedside Glucose 329 mg/dl 321 mg/dl White Blood Count 21.35 K/uL 20.18 K/uL Red Blood Count 2.82 M/uL 2.68 M/uL Hemoglobin 8.6 g/dL 8.0 g/dL Hematocrit 25.6 % 24.1 % Mean Corpuscular Volume 90.8 fL 89.9 fL Mean Corpuscular Hemoglobin 30.5 pg 29.9 pg Mean Corpuscular Hemoglobin Concent 33.6 g/dl 33.2 g/dl Platelet Count 525 K/uL 487 K/uL Mean Platelet Volume 9.3 fL 9.3 fL Neutrophils (%) (Auto) 91.6 % Lymphocytes (%) (Auto) 3.3 % Monocytes (%) (Auto) 4.4 % Eosinophils (%) (Auto) 0.0 % Basophils (%) (Auto) 0.1 % Neutrophils # (Auto) 19.54 K/uL Lymphocytes # (Auto) 0.70 K/uL Monocytes # (Auto) 0.95 K/uL Eosinophils # (Auto) 0.00 K/uL Basophils # (Auto) 0.03 K/uL RDW Standard Deviation 50.0 fL 49.2 fL RDW Coefficient of Variation 15.0 % 15.0 % Immature Granulocyte % (Auto) 0.6 % Immature Granulocyte # (Auto) 0.13 K/uL Dohle Bodies 1+ Polychromasia 1+ Anisocytosis PRESENT Prothrombin Time 13.7 SECONDS Prothromb Time International Ratio 1.3 Activated Partial Thromboplast Time 55.6 SECONDS 53.1 SECONDS Partial Thromboplastin Ratio 2.1 2.0 Sodium Level 133 mmol/L Potassium Level 3.9 mmol/L Chloride Level 93 mmol/L Carbon Dioxide Level 26 mmol/L Anion Gap 14.0 mmol/L Blood Urea Nitrogen 21 mg/dl Creatinine 1.10 mg/dl Est Creatinine Clear Calc Drug Dose 55.3 ml/min Estimated GFR () 60.2 Estimated GFR (Non- 51.9 BUN/Creatinine Ratio 19.1 Random Glucose 299 mg/dl Calcium Level 7.9 mg/dl Phosphorus Level 2.8 mg/dl Magnesium Level 1.6 mg/dl Hepatitis C Antibody Screen NEG Erythrocyte Sedimentation Rate 20 mm/hr Estimated Average Glucose 174 mg/dl Hemoglobin A1c 7.7 % C-Reactive Protein 41.00 mg/dl Thyroid Stimulating Hormone (TSH) 0.610 uIu/ml Test 10/20/16 08:25 10/20/16 11:24 10/20/16 15:58 10/20/16 16:23 Body Fluid Source KNEE LEFT Body Fluid Color REDISH Body Fluid Appearance CLOUDY Body Fluid WBC 831803 /uL Body Fluid RBC 414224 /uL Body Fluid Polynuclear WBCs 65.1 % Body Fluid Polynuclear WBCs (%) 65.1 % Body Fluid Mononuclear WBCs (%) 34.9 % Body Fluid Mononuclear Cells 34.9 % Bedside Glucose 265 mg/dl 260 mg/dl White Blood Count 19.04 K/uL Red Blood Count 2.53 M/uL Hemoglobin 7.4 g/dL Hematocrit 22.1 % Mean Corpuscular Volume 87.4 fL Mean Corpuscular Hemoglobin 29.2 pg Mean Corpuscular Hemoglobin Concent 33.5 g/dl Platelet Count 446 K/uL Mean Platelet Volume 8.9 fL RDW Standard Deviation 48.7 fL RDW Coefficient of Variation 15.1 % Test 10/20/16 16:40 Diagnostic Results [~ rep ct add3]] SINGLE VIEW CHEST CLINICAL HISTORY: Pneumonia. FINDINGS: An AP, portable, upright chest radiograph is obtained. No prior studies are available for comparison at the time of dictation. The examination is degraded by portable technique and patient rotation. The cardiomediastinal silhouette is unremarkable. There is atherosclerotic calcification of the thoracic aorta. Left basilar atelectasis is observed. The lungs and pleural spaces are otherwise clear. No pneumothorax is seen. The skeletal structures are osteopenic. The bony thorax is grossly intact. IMPRESSION: No acute cardiopulmonary abnormality. Assessment & Plan 1. Sepsis secondary to infected left joint and possibly right foot 2. A fibb with RVR/ MAT 3. s/p right toe amputation with poor wound healing, concerning for OM 4. Poorly controlled DMII 5. Anemia; undifferentiated 6. HTN 7. Hyperchol 8. PVD 9. hypokalemia NVS - some sedation during the interview but arousable CVS - Lopressor prn for rate control - continue PO diltiazem - bp responded well to fluids, will additionally give 1 L of LR and continue maintenance - echo - consult cardio - appreciate input RVS - O2 per nursing protocol ID - continue cefepime, flagyl and dapto - consult ID - appreciate input - follow CBC - blood culture pending - final culture from aspiration of knee is pending - wound consult - xray of right foot to assess for OM, consider MRI - ortho has been consulted, potentially going to OR this evening for debridement - first lactate 1.1, repeat to confirm HEME - reflective of anemia - will monitor CBC, has signed consent for transfusion - 2 units type and crossed, held GI -NPO RENAL - continue to monitor I&O - rhonda is in FEN - replete K prn - 2 gm of mg given, recheck in the am - albumin 1.3 - continue to follow CMP ENDO - 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 Murrell was resident physician during care of patient. I separately evaluated patient and did history and exam. I discussed the case with the resident and generally agree with the findings and plan. Had a discussion with Dr. Ibarra, patient currently septic, however without severe sepsis. On appropriate antibiotic coverage, A. fib with RVR responded to fluids. The attempt will be to have a one stage surgery, currently given the age of her artificial joint they don't have the appropriate spacer. At this time it is thought that the risk of a multistage surgery outweighs the benefits as as she does not have severe sepsis at this time. If the patient starts to show evidence of severe sepsis they will do an emergent washout of her septic artificial knee. There is concerned that the ultimate source is a necrotic wound of her right lower extremity, she may possibly need amputation of that to ultimately achieve source control. Patient has a anemia, there is no evidence of hemo-lysis. I am withholding blood transfusion at this point as there is no evidence of end organ ischemia. Later on in the evening is made aware the patient had DVTs. She was started on heparin drip which can be stopped prior to her going to the operating room. I have personally spent 45 minutes of critical care time in the direct management of this patient. This is a life/limb threatening event. This includes time spent evaluating patient, direct bedside care, chart review, placing orders, interpretation of diagnostic studies, discussion with consultants, patient, and family members, as well as other required patient management activities. This time is exclusive of all separately billable procedures, and teaching time and separate from and in addition to any other critical care service time. Documented By: Abdirahman Lopez, DO Additional Copies To Jung Sanches D.O.
[2016-10-20 17:00] LABS: BASO % 0.1 %; BASO ABS # 0.01 K/uL (0-0.2); CALCIUM 7.5 mg/dl (8.5-10.1); COMPLETE YES; CREATININE 0.89 mg/dl (0.60-1.20); DOHLE BODIES 1+; IG% 0.4 %; LARGE PLATELETS 1+; LYMPH % 2.7 %; LYMPH ABS # 0.51 K/uL (1.2-3.4); MONO % 4.2 %; NEUT % 92.6 %; POTASSIUM 3.6 mmol/L (3.5-5.1); TOXIC GRANULATION 1+
[2016-10-20 17:03] LABS: ALB/GLOB RATIO 0.3 (0.9-2)
[2016-10-20] MEDS ORDERED: LACTATED RINGER'S 1000ML 1,000 ML IV ONE (17:15)
[2016-10-20] MEDS ORDERED: MAGNESIUM SULFATE 1GM / D5W 1 GM in PREMIXED IN D5W 100 ML IV ONE (18:00)
[2016-10-20] MEDS: POTASSIUM CHLR 10 MEQ / WTR 10 MEQ in PREMIXED WATER 100 ML IV SCH ×4 (18:08→21:57)
[2016-10-20 18:23] LABS: FERRITIN 664.3 ng/ml (8.0-388.0)
--- NOTE | 2016-10-20 20:20 | DIAGNOSTIC IMAGING REPORT ---
RIGHT FOOT RADIOGRAPHS CLINICAL HISTORY: Evaluate for osteomyelitis. COMPARISON: None FINDINGS: There are findings consistent with amputation of the first and second metatarsals at the level of the mid metatarsals. There is amputation of the third toe at the level of the proximal phalanx. Soft tissue gas is noted with surgical clips. There is slight irregularity of the third metatarsal head. There is no definite evidence for osteomyelitis within the right foot. There is extensive posterior and plantar calcaneal spurring as well as extensive vascular calcification. IMPRESSION: 1. Status post first through third digit amputation, as described above. Operative bed gas is likely postsurgical but correlation with timing of surgery is recommended. 2. Mild cortical irregularity of the third metatarsal head. This is probably chronic although osteomyelitis could have this imaging appearance. Correlation with prior imaging studies, if available, is recommended. Electronically signed by: Deny Connelly M.D. 10/20/2016 8:19 PM Dictated Date/Time: 10/20/2016 8:13 PM
--- NOTE | 2016-10-20 20:33 | CARDIOLOGY CONSULTATION ---
DATE OF CONSULTATION: 10/20/2016 CONSULTATION REQUESTED BY: Dr. Nava. REASON FOR CONSULTATION: Atrial fibrillation with rapid ventricular response. HISTORY OF PRESENT ILLNESS: Ms. Johnson is a very pleasant 66-year-old woman who has never been seen by our cardiology practice before. Apparently, the patient was transferred to [facility] from her rehab a few days ago when she was complaining of ongoing pain and swelling in her left leg during physical therapy. At presentation to the hospital, she was found to be in atrial fibrillation with a rapid ventricular response. Her left knee was found to be septic and she was transferred to [facility] for orthopedic surgery consultation. Currently, the patient's only complaint is that of left knee pain. She states it is actually controlled at rest and only hurts when she tries to move it now. Nursing reports on dressing changes that the wound is noted to be foul smelling and appeared to be worsening. Upon presentation, she was in atrial fibrillation in the 100s to one-teens; however, over the course of 10/20/2016, her rates started to increase into the 140s and cardiology was consulted. She was also transferred to the intensive care unit. Upon initial evaluation, I ordered the patient a 500 mL bolus of normal saline along with Cardizem IV bolus and drip. She was transferred to the ICU and her heart rate improved. PAST SURGICAL HISTORY: 1. Recent multiple toe amputations. 2. History of left knee total arthroplasty. 3. Cataract surgery. 4. Vein stripping. MEDICAL ILLNESSES: 1. Hypertension. 2. Hyperlipidemia. 3. Venous insufficiency. 4. Atrial fibrillation, not on Coumadin as an outpatient. FAMILY HISTORY: Noncontributory. SOCIAL HISTORY: She denies any alcohol, tobacco or recreational drug use. She lives at home by herself independently. She is currently residing at a rehab facility. ALLERGIES: 1. RASHAAD INHIBITORS. 2. LIPITOR. 3. ZOCOR. 4. ONGLYZA. 5. VANCOMYCIN. 6. ZOSYN. MEDICATIONS AN OUTPATIENT: 1. Cardizem CD 240 mg daily. 2. Cipro 500 mg b.i.d. 3. Insulin as directed. 4. Glucotrol daily. 5. Lantus b.i.d. PHYSICAL EXAMINATION: VITALS: T-max of 38.7, heart rate 120, respiratory rate 20, blood pressure 122/52. GENERAL: Awake, lethargic but is responding to questions appropriately. No acute distress. HEENT: Normocephalic, atraumatic. Pupils equal, round and react to light and accommodation. Extraocular muscles intact. Anicteric sclerae. Moist mucous membranes. Poor dentition. NECK: No JVD, no bruit. CARDIOVASCULAR: Irregularly irregular and fast. Unable to appreciate murmurs, rubs or gallops. PULMONARY: Clear to auscultation bilaterally. No rales, rhonchi or wheezing. ABDOMEN: Bowel sounds x4. Soft. No rebound, guarding or tenderness. No organomegaly. EXTREMITIES: Bandaged. Bandages were not removed for examination. TEST RESULTS: A 12-lead EKG performed upon presentation, independently reviewed at this time shows multifocal atrial tachycardia. Telemetry review now shows atrial fibrillation with rapid ventricular response. LABORATORY STUDIES OF SIGNIFICANCE: White count 19, hemoglobin 7.4, platelet count 446. BMP is pending at this time. IMPRESSION: 1. Transient atrial fibrillation alternating with multifocal atrial tachycardia. 2. Severe sepsis. 3. Open left lower extremity wound. 4. Septic joint. RECOMMENDATIONS: It was my pleasure to see Ms. Johnson in consultation today. Obviously, at this point her transient atrial fibrillation is secondary to her severe sepsis and appropriate treatment has been started on that. From a cardiac standpoint, I would recommend Cardizem drip once she has received adequate fluid resuscitation should she stay in atrial fibrillation. Otherwise, IV beta blockade would also be acceptable. Given her open wound, I would recommend holding off anticoagulation at this time, especially given the fact that she is having episodes of sinus rhythm. Thank you very much for allowing me to participate in the care of your patient.
--- NOTE | 2016-10-20 20:37 | Progress Note ---
Internal Med Progress Note Date of Service: Oct 20, 2016. Provider Documentation: SUBJECTIVE: more lethargic today complains of pain on left knee , persistent spiked temp on rapid afib , IV Cardizem gtt ordered by Cardiology found to be hypotensive pt will be transferred to ICU roller pneumatic updated OBJECTIVE: Vital Signs-as noted below Exam: General-in distress due to left knee pain Eyes-sclera non icteric Lungs-diminished Heart-irregular rapid Abdomen-soft, non tender Extremities-rt foot s/p multiple toe amputation on bandage , left knee , tender swollen Neuro-no focal deficit Lab data as noted below. ASSESSMENT & PLAN: SEVERE SEPSIS -due to infected /septic left knee on empiric abx with Daptomycin /Cefepime /Flagyl ID eval appreciated tx to ICU for hemodynamic instability persistent leukocytosis WBC 21 K -> 19 K wound culture /blood culture ordered D/w on Orthopedics dr Bernal -pt is scheduled for I& D tomorrow pt had left total knee replacement done in 04/2000 pt is NPO AFIB RVR : appreciate input form Cardiology started on IV Cardizem gtt hold IV heparin for low H&H pt is scheduled for Left knee I&D tomorrow ANEMIA : hb 7.4 form 8.6 possible due to severe sepsis 2 units of PRBC typed and crossed will need PRBC transfusion , D/w [employer] HYPOTENSION : due to severe sepsis given IV fluid bolus cont to monitor in ICU Recent Right foot toe amputations. hx of PVD s/p 2nd , 3rd and 4 th toe amputation with open wound , exposing bone wound care consulted ordered for wound culture cont IV abx TYPE 2 DM : hold oral meds pt is NPO severe sepsis insulin SSI /basal Lantus pharmacy consulted for glycemic control FULL CODE DVT PROPHYLAXIS high risk for DVT IV heparin D/reno due to drop in H&H need for knee surgery DISPOSITION to be determined transferred to ICU for worsening of clinical status Vital Signs: Date Time Temp Pulse Resp B/P Pulse Ox O2 Delivery O2 Flow Rate FiO2 10/21/16 14:25 90 16 178/87 100 Nasal Cannula 3 10/21/16 14:15 36.4 97 16 166/71 100 Nasal Cannula 3 10/21/16 14:05 98 16 170/69 100 Nasal Cannula 3 10/21/16 13:55 93 16 162/82 100 Nasal Cannula 3 10/21/16 13:45 92 16 160/73 100 Mask 5 10/21/16 13:35 89 16 162/82 100 Mask 10 10/21/16 13:25 88 16 152/82 100 Mask 10 10/21/16 13:24 36.0 86 16 142/83 100 Mask 10 10/21/16 10:30 37.0 98 20 136/67 100 2.0 10/21/16 10:00 92 20 136/67 100 Nasal Cannula 2.0 10/21/16 09:30 37.0 101 24 137/69 100 2.0 10/21/16 08:30 37.1 94 20 140/68 100 3.0 10/21/16 08:02 36.9 100 16 125/68 99 2.0 10/21/16 08:00 37.1 90 21 125/68 100 Nasal Cannula 2.0 10/21/16 08:00 Nasal Cannula 10/21/16 08:00 100 Nasal Cannula 2.0 10/21/16 06:01 103 26 148/67 100 10/21/16 05:01 104 25 148/73 100 10/21/16 04:01 98 26 137/79 100 10/21/16 04:00 100 Nasal Cannula 2.0 10/21/16 04:00 37.2 10/21/16 03:01 101 25 145/69 100 10/21/16 02:01 102 32 132/81 100 10/21/16 01:01 108 27 138/76 100 10/21/16 00:01 107 19 133/53 98 10/20/16 23:59 37.3 10/20/16 23:59 99 Nasal Cannula 2.0 10/20/16 23:07 104 24 99/65 94 10/20/16 22:01 114 28 146/58 96 10/20/16 21:12 102 26 119/66 99 10/20/16 21:01 100 26 132/59 100 10/20/16 20:48 103 22 128/85 99 10/20/16 20:32 109 27 105/59 100 10/20/16 20:00 37.2 10/20/16 20:00 100 Nasal Cannula 3.0 10/20/16 19:46 108 28 94/66 100 10/20/16 19:01 120 24 141/64 100 10/20/16 18:02 116 22 113/74 100 Nasal Cannula 2.0 Lab Results: Results Past 24 Hours Test 10/20/16 19:10 10/20/16 20:52 10/20/16 22:07 10/20/16 23:34 Range/Units Lactic Acid Level 1.1 0.4-2.0 mmol/L Bedside Glucose 240 226 70-90 mg/dl Hemoglobin 7.1 12.0-16.0 g/dL Hematocrit 21.4 37-47 % Test 10/21/16 00:25 10/21/16 03:38 10/21/16 06:35 10/21/16 08:19 Range/Units White Blood Count 18.65 18.21 4.8-10.8 K/uL Red Blood Count 2.43 2.28 4.2-5.4 M/uL Hemoglobin 7.0 6.7 12.0-16.0 g/dL Hematocrit 21.5 20.6 37-47 % Mean Corpuscular Volume 88.5 90.4 80-100 fL Mean Corpuscular Hemoglobin 28.8 29.4 25-34 pg Mean Corpuscular Hemoglobin Concent 32.6 32.5 32-36 g/dl Platelet Count 422 390 130-400 K/uL Mean Platelet Volume 9.1 8.8 7.4-10.4 fL Neutrophils (%) (Auto) 91.7 90.2 % Lymphocytes (%) (Auto) 2.9 2.9 % Monocytes (%) (Auto) 4.9 6.2 % Eosinophils (%) (Auto) 0.1 0.3 % Basophils (%) (Auto) 0.0 0.1 % Neutrophils # (Auto) 17.09 16.44 1.4-6.5 K/uL Lymphocytes # (Auto) 0.55 0.53 1.2-3.4 K/uL Monocytes # (Auto) 0.92 1.13 0.11-0.59 K/uL Eosinophils # (Auto) 0.01 0.05 0-0.5 K/uL Basophils # (Auto) 0.00 0.01 0-0.2 K/uL RDW Standard Deviation 49.5 50.1 36.4-46.3 fL RDW Coefficient of Variation 15.3 15.4 11.5-14.5 % Immature Granulocyte % (Auto) 0.4 0.3 % Immature Granulocyte # (Auto) 0.08 0.05 0.00-0.02 K/uL Toxic Granulation 1+ Dohle Bodies 1+ Prothrombin Time 11.5 9.0-12.0 SECONDS Prothromb Time International Ratio 1.1 0.9-1.1 Activated Partial Thromboplast Time 48.2 57.2 21.0-31.0 SECONDS Partial Thromboplastin Ratio 1.9 2.2 Bedside Glucose 203 230 70-90 mg/dl Sodium Level 137 136-145 mmol/L Potassium Level 4.2 3.5-5.1 mmol/L Chloride Level 104 98-107 mmol/L Carbon Dioxide Level 24 21-32 mmol/L Anion Gap 9.0 3-11 mmol/L Blood Urea Nitrogen 24 7-18 mg/dl Creatinine 0.76 0.60-1.20 mg/dl Est Creatinine Clear Calc Drug Dose 82.3 ml/min Estimated GFR () 94.1 Estimated GFR (Non- 81.2 BUN/Creatinine Ratio 32.2 10-20 Random Glucose 212 70-99 mg/dl Lactic Acid Level 0.9 0.4-2.0 mmol/L Calcium Level 7.3 8.5-10.1 mg/dl Phosphorus Level 1.6 2.5-4.9 mg/dl Magnesium Level 2.1 1.8-2.4 mg/dl Total Bilirubin 0.5 0.2-1 mg/dl Aspartate Amino Transf (AST/SGOT) 10 15-37 U/L Alanine Aminotransferase (ALT/SGPT) 11 12-78 U/L Alkaline Phosphatase 88 45-117 U/L Total Protein 5.6 6.4-8.2 gm/dl Albumin 1.2 3.4-5.0 gm/dl Globulin 4.4 2.5-4.0 gm/dl Albumin/Globulin Ratio 0.3 0.9-2 Test 10/21/16 11:00 10/21/16 11:19 10/21/16 13:35 10/21/16 14:01 Range/Units Stool Occult Blood NEGATIVE NEGATIVE Bedside Glucose 203 217 213 70-90 mg/dl Test 10/21/16 14:16 10/21/16 14:22 Range/Units Bedside Glucose 213 70-90 mg/dl Hemoglobin 8.5 12.0-16.0 g/dL Hematocrit 25.4 37-47 % Microbiology Results 10/21/16 Blood Culture, Received Pending 10/21/16 Blood Culture, Received Pending 10/21/16 Gram Stain, Received Pending 10/21/16 Bacterial Culture, Received Pending
[2016-10-20] MEDS ORDERED: INSULIN GLARGINE SOLOSTAR 100 UNITS/ML 3 ML PEN SC SCH (21:00)
[2016-10-20 22:18] LABS: HEMATOCRIT 21.4 % (37-47)
--- NOTE | 2016-10-20 23:54 | Anesthesiology Progress Note ---
Anesthesia Progress Note Date of Service Oct 20, 2016. Progress Notes Ms. Johnson is a 66 year old female admitted with severe sepsis 2/2 left septic knee (had L TKA in 1999). PMH significant for snoring, SOB, HtN, HLD, PVD ( requiring right 2nd, 3rd, 4th toe amputations recently in Sep 2016 at [facility]), current A fib with RVR being treated with diltiazem, GERD, OA, IDDM, significant anemia, obesity. PSH significant for L TKA, vein stripping, recent toe removal without anesthesia complications. EKG on admission showed A fib with RVR. CXR NAD. Labs notable for elevated PT, INR and PTT (pt had recently been on coumadin but unsure of when this was stopped/last dose), H/H of 7.4/ 22.1. Airway exam showed decreased cervical extension, 2.5 TMD with MP 2. Cardiac showed irregular rhythm with GUERRERO. She has very poor dentition with many missing teeth (claims remaining teeth are not loose). She is currently being treated with broad spectrum antibiotics for her severe infection. She was consented for GETA and had all questions answered.
[2016-10-21] VITALS (29 sets, daily range): BP systolic 124–190; BP diastolic 49–81; PULSE 90–120; TEMP 36.9–37.6; O2SAT 96–100
[2016-10-21 00:40] LABS: HEMATOCRIT 21.5 % (37-47); MEAN CELL VOLUME 88.5 fL (80-100); MEAN CORPUSCULAR HEMOGLOBIN 28.8 pg (25-34); MEAN PLATELET VOLUME 9.1 fL (7.4-10.4); PLATELET COUNT 422 K/uL (130-400); RED BLOOD COUNT 2.43 M/uL (4.2-5.4); WHITE BLOOD COUNT 18.65 K/uL (4.8-10.8)
[2016-10-21 00:50] LABS: INR 1.1 (0.9-1.1); PARTIAL THROMBOPLASTIN RATIO 1.9; PROTHROMBIN TIME (PATIENT) 11.5 SECONDS (9.0-12.0)
[2016-10-21 01:03] LABS: COMPLETE YES; DOHLE BODIES 1+; EOS % 0.1 %; IG% 0.4 %; LYMPH % 2.9 %; LYMPH ABS # 0.55 K/uL (1.2-3.4); MEAN CORPUSCULAR HGB CONC 32.6 g/dl (32-36); MONO % 4.9 %; NEUT % 91.7 %; TOXIC GRANULATION 1+
[2016-10-21] MEDS: HEPARIN 25,000 UNIT/500ML D5W 500 ML IV PRN ×2 (01:06→21:25)
[2016-10-21] MEDS: INSULIN ASPART 100 UNITS/ML 3 ML PEN SC SCH ×6 (03:48→23:41)
[2016-10-21] MEDS: METRONIDAZOLE / NSS 500 MG in PREMIXED NSS 100 ML IV SCH ×3 (03:48→19:36)
[2016-10-21] MEDS: NSS + 20MEQ KCL 1000ML 1,000 ML IV SCH ×2 (05:45→16:57)
--- NOTE | 2016-10-21 06:28 | DIAGNOSTIC IMAGING REPORT ---
BILATERAL LOWER EXTREMITY VENOUS DOPPLER HISTORY: Pain. Edema. PAD, RLE wound infection COMPARISON STUDY: None. FINDINGS: Findings consistent with bilateral acute deep venous thrombosis. On the right there is involvement of the right popliteal vein. There is involvement of the left posterior tibial vein. Superficial thrombophlebitis is identified on the right involving the greater saphenous vein. IMPRESSION: Bilateral deep venous thrombosis with superimposed superficial thrombophlebitis of the right leg. Electronically signed by: Anam Crenshaw M.D. 10/21/2016 6:27 AM Dictated Date/Time: 10/21/2016 6:26 AM
[2016-10-21 07:00] LABS: PARTIAL THROMBOPLASTIN RATIO 2.2
[2016-10-21 07:10] LABS: HEMATOCRIT 20.6 % (37-47); MEAN CELL VOLUME 90.4 fL (80-100); MEAN CORPUSCULAR HEMOGLOBIN 29.4 pg (25-34); MEAN CORPUSCULAR HGB CONC 32.5 g/dl (32-36); MEAN PLATELET VOLUME 8.8 fL (7.4-10.4); PLATELET COUNT 390 K/uL (130-400); RED BLOOD COUNT 2.28 M/uL (4.2-5.4); WHITE BLOOD COUNT 18.21 K/uL (4.8-10.8)
[2016-10-21 07:33] LABS: BASO % 0.1 %; BASO ABS # 0.01 K/uL (0-0.2); COMPLETE YES; EOS % 0.3 %; IG% 0.3 %; LYMPH % 2.9 %; LYMPH ABS # 0.53 K/uL (1.2-3.4); MONO % 6.2 %; NEUT % 90.2 %
[2016-10-21 07:38] LABS: ALB/GLOB RATIO 0.3 (0.9-2); BUN/CREATININE RATIO 32.2 (10-20); CALCIUM 7.3 mg/dl (8.5-10.1); CREATININE 0.76 mg/dl (0.60-1.20); MAGNESIUM 2.1 mg/dl (1.8-2.4); PHOSPHORUS 1.6 mg/dl (2.5-4.9); POTASSIUM 4.2 mmol/L (3.5-5.1)
[2016-10-21] MEDS ORDERED: POTASSIUM PHOS 3 MMOL/1 ML INFUSION IV STA (07:46)
[2016-10-21] MEDS ORDERED: POTASSIUM PHOSPHATE INJ 21 MMOL in SODIUM CHLORIDE 0.9% 500ML 500 ML IV ONE (08:10)
[2016-10-21] MEDS ORDERED: INSULIN GLARGINE SOLOSTAR 100 UNITS/ML 3 ML PEN SC SCH ×2 (09:00→21:00)
--- NOTE | 2016-10-21 09:15 | ECHOCARDIOGRAM REPORT ---
*NOTICE TO RECEIVING CONSTITUTION PARTY AGENCY This information is strictly Confidential and protected under [place] law. [place] law prohibits you from making any further disclosure of this information unless further disclosure is expressly permitted by the written consent of the person to whom it pertains or is authorized by law. A general authorization for the release of medical or other information is not sufficient for this purpose. Hospital accepts no responsibility if the information is made available to any other person, INCLUDING THE PATIENT. Interpretation Summary * Name: RICA RETANA Study Date: 10/21/2016 06:28 AM BP: 148/67 mmHg * [facility] HR: 103 * : 1950 (M/d/yyyy) Gender: Female Height: 64 in * Age: 66 yrs Ethnicity: [place] Weight: 209 lb * Ordering Physician: Christa Murrell * Referring Physician: No Doctor, Assigned * Performed By: Ifrah Muniz RDCS * * Reason For Study: SEPSIS * BSA: 2.0 m2 * History: SEPSIS * -- Conclusions -- * Small, underfilled LV chamber size with mild concentric LVH. * Hyperdynamic LV systolic function, EF >70%. * No segmental left ventricular wall motion abnormalities are noted. * Grade I diastolic dysfunction. * Aortic valve sclerosis moderate, without significant aortic valvular stenosis. * Moderate mitral annular calcifications. Procedure Details * A contrast injection of Definity was performed to improve assessment of LV function. * Contrast was injected into an intravenous site in the left arm. * One vial of Definity ultrasound contrast was diluted in normal saline to a total volume of 10 ml. A total of '2' ml of solution was administered during imaging. * Lot # [id number] of Definity utilized for procedure. * Expiration date AUG 27. Left Ventricle * The left ventricular cavity is small. * There is mild concentric left ventricular hypertrophy. * Ejection Fraction = >70 %. * No segmental left ventricular wall motion abnormalities are noted. * The left ventricle is hyperdynamic. * The left ventricular wall motion is normal. Right Ventricle * The right ventricular cavity size is normal (basal dimension <4.2 cm in right ventricular apical 4-chamber view). * The right ventricular systolic function is normal as assessed by tricuspid annular plane systolic excursion (TAPSE) (normal >1.5 cm). Atria * The left atrial size is normal. * Right atrial size is normal. Mitral Valve * There is moderate mitral annular calcification. * There is no mitral valve stenosis. * There is no mitral regurgitation noted. Tricuspid Valve * The tricuspid valve is normal in structure and function. Aortic Valve * The aortic valve is tricuspid. The leaflet thickness if normal. There is no aortic stenosis, and no significant insufficiency. * Aortic valve sclerosis moderate, without significant aortic valvular stenosis. * There is no significant aortic regurgitation. Pulmonic Valve * The pulmonary valve is not well seen, but the Doppler examination is normal without significant regurgitation or stenosis. Great Vessels * The aortic root is normal size. Pericardium/Pleural * There is no pericardial effusion. Left Ventricular Diastolic Function * Grade I diastolic dysfunction, (abnormal relaxation pattern). MMode 2D Measurements and Calculations IVSd 1.2 cm IVSs 1.7 cm LVIDd 4.0 cm LVIDs 2.6 cm LVPWd 1.3 cm LVPWs 1.4 cm IVS/LVPW 0.88 FS 36.2 % EDV(Teich) 71.7 ml ESV(Teich) 24.1 ml EF(Teich) 66.4 % EDV(cubed) 65.9 ml ESV(cubed) 17.1 ml EF(cubed) 74.0 % % IVS thick 42.9 % % LVPW thick 5.1 % LV mass(C)d 177.1 grams LV mass(C)dI 88.9 grams/m\S\2 LV mass(C)s 134.9 grams LV mass(C)sI 67.7 grams/m\S\2 SV(Teich) 47.6 ml SI(Teich) 23.9 ml/m\S\2 SV(cubed) 48.8 ml SI(cubed) 24.5 ml/m\S\2 Ao root diam 2.9 cm Ao root area 6.4 cm\S\2 LA dimension 3.5 cm LA/Ao 1.2 LVOT diam 2.0 cm LVOT area 3.0 cm\S\2 LVAd ap4 28.2 cm\S\2 LVLd ap4 8.2 cm EDV(MOD-sp4) 79.4 ml EDV(sp4-el) 81.9 ml LVAs ap4 15.9 cm\S\2 LVLs ap4 6.6 cm ESV(MOD-sp4) 32.6 ml ESV(sp4-el) 32.5 ml EF(MOD-sp4) 58.9 % EF(sp4-el) 60.3 % LVAd ap2 28.5 cm\S\2 LVLd ap2 7.7 cm EDV(MOD-sp2) 85.8 ml EDV(sp2-el) 88.7 ml LVAs ap2 15.9 cm\S\2 LVLs ap2 6.2 cm ESV(MOD-sp2) 33.4 ml ESV(sp2-el) 34.4 ml EF(MOD-sp2) 61.1 % EF(sp2-el) 61.2 % LVLd %diff -6.01 % EDV(MOD-bp) 85.0 ml LVLs %diff -6.36 % ESV(MOD-bp) 33.4 ml EF(MOD-bp) 60.7 % SV(MOD-sp4) 46.8 ml SI(MOD-sp4) 23.5 ml/m\S\2 SV(MOD-sp2) 52.4 ml SI(MOD-sp2) 26.3 ml/m\S\2 SV(MOD-bp) 51.6 ml SI(MOD-bp) 25.9 ml/m\S\2 SV(sp4-el) 49.4 ml SI(sp4-el) 24.8 ml/m\S\2 SV(sp2-el) 54.2 ml SI(sp2-el) 27.2 ml/m\S\2 Doppler Measurements and Calculations MV E max eddy 127.9 cm/sec MV A max eddy 122.4 cm/sec MV E/A 1.0 MV dec time 0.22 sec Ao V2 max 215.7 cm/sec Ao max PG 18.6 mmHg Ao max PG (full) 12.4 mmHg Ao V2 mean 155.1 cm/sec Ao mean PG 10.6 mmHg Ao mean PG (full) 7.2 mmHg Ao V2 VTI 44.8 cm ELIDIA(I,A) 1.7 cm\S\2 ELIDIA(I,D) 1.7 cm\S\2 ELIDIA(V,A) 1.7 cm\S\2 ELIDIA(V,D) 1.7 cm\S\2 LV V1 max PG 6.2 mmHg LV V1 mean PG 3.4 mmHg LV V1 max 124.3 cm/sec LV V1 mean 86.5 cm/sec LV V1 VTI 25.3 cm SV(Ao) 286.1 ml SI(Ao) 143.5 ml/m\S\2 SV(LVOT) 76.6 ml SI(LVOT) 38.4 ml/m\S\2
--- NOTE | 2016-10-21 09:24 | Cardiology Follow-Up ---
Subjective Subjective Date of Service: Oct 21, 2016. Pt evaluation today including: conversation w/ patient, physical exam, chart review, lab review, review of studies, review of inpatient medication list Additional Details: Pt seen and examined, more alert today. States only pain is in leg and foot. Denies cp, sob, palpitations, lightheadedness or dizziness. Tele reviewed: sinus rhythm with frequent atrial ectopy, occurring as single beats, bigeminy and trigeminy Review of Systems Respiratory: No cough, No dyspnea at rest, No dyspnea on exertion, No hemoptysis, No problem reported, No see HPI, No shortness of breath, No sputum, No wheezing Cardiac: No PND, No chest pain, No claudication, No edema, No orthopnea, No palpitations, No problem reported, No see HPI Objective Vital Signs Last Vital Signs Documentation Date Time Temp Pulse Resp B/P Pulse Ox O2 Delivery O2 Flow Rate FiO2 10/21/16 08:02 36.9 100 16 125/68 99 2.0 10/21/16 04:00 Nasal Cannula Physical Exam: General Appearance: WD/WN, no apparent distress Eyes: bilateral eyes EOMI, bilateral eyes PERRL, bilateral eyes normal inspection ENT: normal ENT inspection, hearing grossly normal, pharynx normal Neck: supple, no adenopathy, thyroid normal, no JVD, no carotid bruits, trachea midline Respiratory/Chest: chest non-tender, lungs clear, normal breath sounds, no respiratory distress, no accessory muscle use Cardiovascular: no JVD, + systolic murmur (3/6 mid to late gabe, rsb, 2nd ICS without radiation), + gallop/S4, + irregularly irregular Abdomen: normal bowel sounds, non tender, soft, no organomegaly Neurologic/Psychiatric: talent recruiter II-XII nml as tested, no motor/sensory deficits, alert, normal mood/affect, oriented x 3, + pertinent finding (lethargic but appropriate) Skin: normal color, warm/dry, no rash Lymphatic: no adenopathy Assessment and Plan 1. paroxysmal atrial fibrillation has history resolved, now sinus with frequent atrial ectopy no cardiac treatment necessary no need for anticoagulation for a cardioembolic source necessary at this time 2. preop risk assessment hyperdynamic LV systolic function hx of paf no cardiac symptoms patient counseled that I would place her as a moderate risk for adverse axel- operative cardiovascular event, risk approximately <5% further explained that no further testing or intervention would further lower that risk patient states that she understands, is accepting of that risk and wishes to proceed with surgery no need to delay from cardiac standpoint would avoid any further beta blockers at this time given that she is naive to them 3. volume status LV underfilled, suggestive of volume depletion recommend continued volume replacement
--- NOTE | 2016-10-21 10:29 | Pharmacy Progress Note ---
Glycemic Control: Progress Nt Date of Service Oct 21, 2016. Scope Glycemic Pharmacist consulted by Dr Betancourt on 10/20/16 for glycemic control and to write orders per [facility] inpatient glycemic control protocol. Objective Accuchecks BSG (last 24hrs): Test 10/20/16 11:24 10/20/16 15:58 10/20/16 16:23 10/20/16 20:52 Bedside Glucose 265 mg/dl (70-90) 260 mg/dl (70-90) 240 mg/dl (70-90) Random Glucose 259 mg/dl (70-99) Test 10/20/16 23:34 10/21/16 03:38 10/21/16 06:35 10/21/16 08:19 Bedside Glucose 226 mg/dl (70-90) 203 mg/dl (70-90) 230 mg/dl (70-90) Random Glucose 212 mg/dl (70-99) Laboratory Data (last 24hrs) Test 10/20/16 16:23 10/21/16 00:25 10/21/16 06:35 Anion Gap 10.0 mmol/L 9.0 mmol/L BUN/Creatinine Ratio 28.0 32.2 Blood Urea Nitrogen 25 mg/dl 24 mg/dl Creatinine 0.89 mg/dl 0.76 mg/dl Potassium Level 3.6 mmol/L 4.2 mmol/L Sodium Level 134 mmol/L 137 mmol/L White Blood Count 19.04 K/uL 18.65 K/uL 18.21 K/uL Red Blood Count 2.53 M/uL 2.43 M/uL 2.28 M/uL Hemoglobin 7.4 g/dL 7.0 g/dL 6.7 g/dL Hematocrit 22.1 % 21.5 % 20.6 % Mean Corpuscular Volume 87.4 fL 88.5 fL 90.4 fL Mean Corpuscular Hemoglobin 29.2 pg 28.8 pg 29.4 pg Mean Corpuscular Hemoglobin Concent 33.5 g/dl 32.6 g/dl 32.5 g/dl Platelet Count 446 K/uL 422 K/uL 390 K/uL Mean Platelet Volume 8.9 fL 9.1 fL 8.8 fL Neutrophils (%) (Auto) 92.6 % 91.7 % 90.2 % Lymphocytes (%) (Auto) 2.7 % 2.9 % 2.9 % Monocytes (%) (Auto) 4.2 % 4.9 % 6.2 % Eosinophils (%) (Auto) 0.0 % 0.1 % 0.3 % Basophils (%) (Auto) 0.1 % 0.0 % 0.1 % Neutrophils # (Auto) 17.64 K/uL 17.09 K/uL 16.44 K/uL Lymphocytes # (Auto) 0.51 K/uL 0.55 K/uL 0.53 K/uL Monocytes # (Auto) 0.80 K/uL 0.92 K/uL 1.13 K/uL Eosinophils # (Auto) 0.00 K/uL 0.01 K/uL 0.05 K/uL Basophils # (Auto) 0.01 K/uL 0.00 K/uL 0.01 K/uL HbA1c: Test 10/20/16 05:45 Hemoglobin A1c 7.7 % (4.5-5.6) H Recent Pertinent Medications Outpatient Anti-diabetic Regimen: * Lantus 18 units SQ BID * Novolog ACHS per sliding scale: < 150 0 units, 150-200 4 units; 201-250 8 units; 251-300 10 units; etc... * Glipizide XL 10mg PO daily * A1c = 7.7 % 10/20/16 The patient is currently receiving: * Basal insulin: Lantus 18 units SQ x 1 last evening + 9 units SQ x 1 this AM * Correctional Insulin: Novolog Correction per scale ACHS Goal Range: Low 110 mg/dL - High 140 mg/dL Correction Factor: 25 mg/dL/unit * Prandial insulin: Per carb ratio of 1 unit per 8 grams CHO consumed * Oral Agents: None currently Risk Factors for Insulin Resistance: * Infection: R foot osteomyelitis, septic L TKA, GPC bacteremia; receiving Daptomycin + Cefepime + Metronidazole IV * IVF: Heparin gtt, Cardizem gtt and Cefepime mixed in D5W * Recent Surgery: planned OR today * Diet: NPO for OR Assessment & Plan ASSESSMENT: 10/21/16 * Glycemic control has improved since insulin adjustments made yesterday * BSGs running 203-230 this AM * Pattern still suggests basal insulin deficiency, which was the problem yesterday as well. She did received 18 units of Lantus last PM - her usual home dosage. Fasting BSGs are improved this AM but she has required 7 units of Novolog correction overnight. She is NPO for surgery today. She received 1/2 her usual Lantus dose this AM (9 units). This is a reasonable starting point given NPO status. * Will increase correctional insulin dose should the basal insulin dose not be adequate for current stressors. * Will resume home Lantus dose this PM with 1/2 dose parameter added to lessen risk of hypoglycemia if patient not eating well post-op * OR planned today, will need to review meds used in OR to determine if dexamethasone used as this will greatly influence treatment plan PLAN FOR INPATIENT GLYCEMIC CONTROL: * Increasing Lantus to 18 units SQ BID; give 1/2 dose (9 units) if BSG less than 110 * Changing correction factor to 20 mg/dl/unit * Continuing ratio of 1 unit per 8 grams CHO consumed * Continuing goal range of Low 110 mg/dL - High 140 mg/dL for now to allow for additional correction until BSGs are < 180 then reassess * Continue Q 4 hr BSG checks with coverage for now * Please note that the plan above was derived based on current level of insulin resistance and hospital stress. These recommendations are appropriate for inpatient admission only. Plan of care upon discharge will need to be reassessed to avoid potential outpatient hypo/hyperglycemia. Thank you.
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
[2016-10-21] MEDS ORDERED: MAGIC MOUTHWASH PO PRN (10:45)
--- NOTE | 2016-10-21 10:48 | Surgery Consultation ---
Consultation Date of Service Oct 21, 2016. Chief Complaint Open amputation right foot History of Present Illness The patient is a 66 year old female who was transferred from [facility] with sepsis from an infected left knee. She has undergone open amputation of right 1st, 2nd, 3rd toes. She has exposed bone at the site. She then developed left knee pain and found to have an infected left knee prosthetic. She also was found to have bilateral lower extremity DVT which is acute. She will need to be off her heparin drip prior and after her multiple planned procedures this week. She denies SOB or chest pain Vitals Vital Signs Past 12 Hours Date Time Temp Pulse Resp B/P Pulse Ox O2 Delivery O2 Flow Rate FiO2 10/21/16 08:02 36.9 100 16 125/68 99 2.0 10/21/16 06:01 103 26 148/67 100 10/21/16 05:01 104 25 148/73 100 10/21/16 04:01 98 26 137/79 100 10/21/16 04:00 100 Nasal Cannula 2.0 10/21/16 04:00 37.2 10/21/16 03:01 101 25 145/69 100 10/21/16 02:01 102 32 132/81 100 10/21/16 01:01 108 27 138/76 100 10/21/16 00:01 107 19 133/53 98 10/20/16 23:59 37.3 10/20/16 23:59 99 Nasal Cannula 2.0 10/20/16 23:07 104 24 99/65 94 Allergies Coded Allergies: RASHAAD Inhibitors (Verified Allergy, Unknown, RASH, 10/19/16) unknown reaction Atorvastatin (Verified Allergy, Unknown, rash, 10/19/16) unknown reaction Ertapenem (Verified Allergy, Unknown, rash, 10/19/16) unknown reaction Piperacillin (Verified Allergy, Unknown, rash, 10/19/16) Saxagliptin (Verified Allergy, Unknown, rash, 10/19/16) unknown reaction Simvastatin (Verified Allergy, Unknown, rash, 10/19/16) unknown reaction Tazobactam (Verified Allergy, Unknown, rash, 10/19/16) Vancomycin (Verified Allergy, Unknown, rash, 10/19/16) Home Medications Scheduled Cholecalciferol (Vitamin D3), PO DAILY Ciprofloxacin Tab (Cipro), 500 MG PO Q12 Diltiazem Hcl Coated Beads (Cardizem Cd), 1 CAP PO DAILY Docusate Sodium (Colace), 1 CAP PO BID Folic Acid (Folvite), 1 TAB PO DAILY Glipizide Xl (Glucotrol Xl), 10 MG PO QAM Hydrocodone/Acetaminophen 5MG/325MG ([place] 5MG/325MG), 1 TAB PO Q4 Insulin Aspart (Novolog), SQ QID Insulin Glargine (Lantus), 18 SC BID Scheduled PRN Ondansetron Odt (Zofran Odt), 4 MG SL Q4H PRN for Nausea Miscellaneous Medications Famotidine (Pepcid), 20 MG PO Problem List Medical Problems: (1) Atrial fibrillation (2) Septic arthritis of knee, left Surgical / Medical History Past Medical/Surgical History: Diabetes, High Cholesterol, Hypertension, Other (afib. DVT) Family History No pertinent family history Social History Smoking Status: Never Smoker Hx Alcohol Use - Type & Amnt: No Hx Substance Use -Type & Amnt: No Review of Systems Respiratory: No PELAYO, No PND, No cough, No cyanosis, No dyspnea, No hemoptysis, No orthopnea, No problem reported, No short of breath, No sputum production, No stridor, No wheezing Cardiovascular: No chest pain, No chest pressure, No chest tightness, No cyanosis, No diaphoresis, No edema, No intermittent claudication, No lightheadedness, No mumur, No orthopnea, No palpitations, No paroxysmal nocturnal dyspnea, No problem reported, No syncope Gastrointestinal: No abdominal pain, No anorexia, No appetite changes, No belching, No constipation, No diarrhea, No dysphagia, No flatulence, No food intolerance, No heartburn, No hematemesis, No hematochezia, No hemorrhoids, No indigestion, No nausea, No problem reported, No rectal bleeding, No stool changes, No vomiting Musculoskeletal: + joint pain Neurologic: No LOC, No dizziness, No headache, No lethargy, No memory loss, No numbness, No paresthesia, No pre-existing deficit, No problem reported, No seizures, No tics, No tingling, No tremors, No vertigo, No weakness Psychiatric: No alcohol abuse, No anxiety, No auditory hallucinations, No depression, No drug abuse, No homicidal ideation, No mood changes, No problem reported, No suicidal ideation, No visual hallucinations Physical Exam Constitutional: General Apperance: heathly-appearing, well-nourished, well-developed Level of Distress: mild distress Ambulation: limited ambulation Psychiatric: Mental Status: active & alert, normal mood, normal affect Orientation: oriented except where noted, to time, to place, to person Memory: recent memory normal, remote memory normal Neck: supple Lungs: Auscultation: breath sounds normal Cardiovascular: Heart Auscultation: RRR Peripheral Pulses: Radial Pulse: normal on the left, normal on the right Femoral Pulse: normal on the left, normal on the right Abdomen: Inspection & Palpation: soft Musculoskeletal: normal Extremities: Upper Right: no cyanosis, no edema, no varicosities, no palpable cord, no clubbing, no ulcers, no mottling Upper Left: no cyanosis, no edema, no palpable cord, no clubbing, no ulcers , no mottling Lower Right: no cyanosis, no edema, no varicosities, no palpable cord, no clubbing, no mottling, ulcers, pertinent finding (open foot amp with exposed bone) Lower Left: no cyanosis, no edema, no varicosities, no palpable cord, no clubbing, no ulcers, no mottling Neurologic: Cranial Nerves: grossly intact Assessment and Plan Imp; Open right foot amputation site Bilateral lower extremity acute DVT Plan: Would recommend a removable filter due to the off and on needs of the heparin due to surgical procedure. There is arterial flow to foot on the right. Doubt a TMA would heal due to the previous amputations and exposed bone. Would recommend BKA on the right. Will place filter this am. I have discussed the risks options and benefits of the procedure with the patient. The patient understands the risks options and benefits and agrees to the procedure. Thank you very much for letting me participate in the care of this patient.
--- NOTE | 2016-10-21 10:49 | Procedure Note ---
Pre-Mod Sedation Assessment General Date of Moderate Sedation: Oct 21, 2016. Vital Signs: Vital Signs Past 12 Hours Date Time Temp Pulse Resp B/P Pulse Ox O2 Delivery O2 Flow Rate FiO2 10/21/16 08:02 36.9 100 16 125/68 99 2.0 10/21/16 06:01 103 26 148/67 100 10/21/16 05:01 104 25 148/73 100 10/21/16 04:01 98 26 137/79 100 10/21/16 04:00 100 Nasal Cannula 2.0 10/21/16 04:00 37.2 10/21/16 03:01 101 25 145/69 100 10/21/16 02:01 102 32 132/81 100 10/21/16 01:01 108 27 138/76 100 10/21/16 00:01 107 19 133/53 98 10/20/16 23:59 37.3 10/20/16 23:59 99 Nasal Cannula 2.0 10/20/16 23:07 104 24 99/65 94 Pre-Sedation Airway Assessment Oral Cavity: Dentures Smoking Status: Never Smoker Mallampati Classification: Class I ASA Classification: Class II Notes The planned sedation has been discussed with the patient and consent obtained. I have identified the patient, determined the appropriateness of sedation and have assessed the patient immediately prior to the procedure. All medicine(s) and interventions are by my order.
[2016-10-21] MEDS ORDERED: MIDAZOLAM HCL 1 MG/ML 2ML VIAL ONE ×2 (11:05→11:13)
[2016-10-21] MEDS ORDERED: FENTANYL CITRATE INJ 50 MCG/1 ML 2 ML VIAL ONE ×3 (11:05→12:32)
[2016-10-21] MEDS: CEFEPIME IV 2,000 MG in DEXTROSE 5% 100ML 100 ML IV SCH ×2 (11:14→22:46)
[2016-10-21] MEDS ORDERED: BACITRACIN 50000 UNIT VIAL ONE (11:14)
[2016-10-21] MEDS ORDERED: DEXAMETHASONE CONC SOLN 3.75 MG, NYSTATIN SUSP 30 ML, DiphenhydrAMINE HCL SYRUP 300 MG,... PO PRN ×5 (11:15)
--- NOTE | 2016-10-21 11:28 | History & Physical Bridge Note ---
H&P Re-Evaluation Bridge Note: I have examined the patient, reviewed the History & Physical and in the interval since the performance of the History & Physical I have noted the following changes of clinical significance: No changes noted
--- NOTE | 2016-10-21 11:46 | Clinical Documentation Query ---
AROLDO Rodriguez : CLINICAL DOCUMENTATION QUERY Patient is a 66 year old female admitted for the evaluation and treatment of septic left knee s/p TKA in 1999 and probable osteomyelitis and wound infection s/p toe amputation of 2-4th toes on right foot. Hemoglobin and hematocrit were 8.6 g/dl and 25.6% on admission. This a.m. (10/21) values are down to 6.7 g/dl and 20.6%. Net I/O is positive for greater than 3 liters at this time. She is being monitored with serial hematology and is typed and crossed for transfusion. In your clinical opinion is this patient being managed for: ( ) Anemia of chronic disease and hemodilutional anemia ( ) Other explanation of clinical findings (Please Explain) ( ) Unable to determine (Please Define) ( ) Need to Discuss ( ) Not Agree The medical record reflects the following clinical findings, treatment, and risk factors. Clinical Indicators: As above Treatment: Serial hematology Risk Factors: Prolonged illness/infection, normocytic, normochromic anemia Please clarify and document your clinical opinion in the progress notes and discharge summary. Terms such as "probable", "suspected", "likely", "questionable", "possible", or "still to be ruled out" are acceptable. IF IN AGREEMENT, YOU MUST DOCUMENT ABOVE DIAGNOSTIC STATEMENT IN DAILY PROGRESS NOTES AND DISCHARGE SUMMARY. This document is not part of the patient's record. Thank You, Abdirahman Navarro, RN [phone]
[2016-10-21] MEDS ORDERED: LIDOCAINE HCL 1% 20 ML VIAL INJ ONE (11:47)
[2016-10-21] MEDS ORDERED: IODIXANOL (VISIPAQUE) 270 MG/ML 50ML XX ONE (11:55)
[2016-10-21] MEDS: DAPTOmycin IV 375 MG in SODIUM CHLORIDE 0.9% 50ML 50 ML IV SCH (12:00)
--- NOTE | 2016-10-21 12:02 | [facility] Post Operative Brief Note ---
Immediate Operative Summary Operative Date Oct 21, 2016. Pre-Operative Diagnosis acute deep vein thrombosis, pre op ortho surgery Post-Operative Diagnosis same Procedure(s) Performed Insertion of Inferior Vena Cava Filter, Right Jugular Approach, Ultrasound Localization Of Right Internal Jugular Vein, Fluoroscopy for Positioning, Insertion Of Triple Lumen Catheter Right Internal Jugular Surgeon Dr. Botello Compact Assembler Surgeon(s) none Estimated Blood Loss 5 ml Findings tip of catheter in distal SVC Specimens none Anesthesia MAC Complication(s) None Disposition
--- NOTE | 2016-10-21 12:06 | DIAGNOSTIC IMAGING REPORT ---
BILATERAL LOWER EXTREMITY ARTERIAL DOPPLER ULTRASOUND CLINICAL HISTORY: Right foot wound. COMPARISON STUDY: No previous studies for comparison. TECHNIQUE: Color and duplex Doppler sonography of the arterial systems of both lower extremity was performed. This study was performed portably and therefore ankle-brachial indices could not be obtained. FINDINGS: There was moderate atherosclerotic plaque within each lower extremity. No elevated velocities were identified. No vessel occlusion was identified by sonography. There was triphasic flow within the right common femoral and superficial femoral arteries. There was biphasic flow within the right popliteal artery with monophasic flow within the right posterior tibial, dorsalis pedis and peroneal arteries. There was biphasic flow within the left common femoral artery. There is also biphasic flow within the left superficial femoral artery with monophasic flow within the left popliteal, anterior tibial, posterior tibial, peroneal and dorsalis pedis vessels. IMPRESSION: 1. Moderate atherosclerotic plaque within each lower extremity. 2. No elevated velocities to suggest a hemodynamically significant stenosis. No vessel occlusion by sonography. 3. Patent vessels with monophasic flow within the bilateral calf vessels, as described above. Electronically signed by: Deny Connelly M.D. 10/21/2016 12:05 PM Dictated Date/Time: 10/21/2016 11:18 AM
[2016-10-21] MEDS ORDERED: LIDOCAINE HCL 2% 2 ML VIAL (20MG/ML) ONE (12:12)
[2016-10-21] MEDS ORDERED: PROPOFOL IV EMULSION 10 MG/ML 20 ML VIAL IV ONE (12:12)
[2016-10-21] MEDS ORDERED: SUCCINYLCHOLINE 100MG/5ML SYR IV ONE (12:12)
--- NOTE | 2016-10-21 12:36 | DIAGNOSTIC IMAGING REPORT ---
DATE OF PROCEDURE: 10/21/2016 PREOPERATIVE DIAGNOSIS: Acute deep venous thrombosis bilateral lower extremities preop for orthopedic surgery. POSTOPERATIVE DIAGNOSIS: Same. PROCEDURE: 1. Insertion of inferior vena cava filter jugular approach. 2. Insertion of triple lumen catheter. SURGEON: Dr. Botello. ANESTHETIC: MAC. PROCEDURE INDICATIONS: The patient is a 66-year-old female who has acute deep venous thrombosis in both lower extremities. She is scheduled to have orthopedic procedure due to her septic joint. She is having multiple procedures this week. She will be on and off heparin for these procedures. We recommended vena cava filter for protection. She understands the risks, options and benefits and agreed to have this procedure. The patient was taken to the angio suite and placed in supine position. After right side of the neck was prepped and draped in a sterile manner, local anesthetic was administered. Percutaneous puncture was made of the right internal jugular vein under ultrasound imaging. Wire was then passed centrally. It passed down into the inferior vena cava. Once the wire was down into the inferior vena cava the puncture site was dilated. The filter sheath was inserted. It was placed in the inferior vena cava. A venacavogram was performed showing the location of the renal veins. No clot was seen in the cava. The filter was then inserted and deployed in the infrarenal vena cava in a nice upright position. Wire was then reinserted through the sheath. The sheath was removed and a triple lumen catheter was inserted. The tip was placed in the distal superior vena cava. The wire was then removed. The catheter was sutured in place. Sterile dressings were applied. All 3 ports aspirated and flushed easily. The sterile dressings were then applied. The patient was then undraped and she was then prepped and draped for the orthopedic procedure.
--- NOTE | 2016-10-21 13:21 | OPERATIVE REPORT ---
DATE OF OPERATION: 10/21/2016 PREOPERATIVE DIAGNOSIS: Infected left total knee arthroplasty. POSTOPERATIVE DIAGNOSIS: Infected left total knee arthroplasty. PROCEDURE: Incision and drainage with arthrotomy and I\T\D left total knee arthroplasty. SURGEON: Dr. Ibarra. ELECTRIC FURNACE OPERATOR: Anam Lei, who was necessary for prepping, draping, retraction, wound closure defects, subQ and skin and was necessary for the case. HISTORY OF PRESENT ILLNESS: The patient is a very pleasant 66-year-old white female who had a total knee arthroplasty done with an Encore type implant approximately year 1999, approximately 15-17 years ago, was doing fine with her knee and had developed some gangrenous necrotic toes, had previous debridement of her foot, which was felt to be the seeding influence of left total knee arthroplasty. She was transferred from [facility] to Dr. Car's service. Subsequently, since I performed the initial knee arthroplasty some 15+ years ago I did the washout today. At the time of surgery, patient was noted to have multiple medical problems, bilateral deep venous thrombosis, and a multitude of medical issues currently ongoing. At time of surgery of her knee she has grossly infected with purulence in her left knee joint. OPERATION AND FINDINGS: PROCEDURE: After proper prepping and draping of the left lower extremity, an incision made over the region of the previous incision. Dissection was carried down through subcutaneous tissues, meticulous hemostasis was obtained. The patient had been off heparin for approximately 5-6 hours. The patient after meticulous hemostasis was obtained of the joint arthrotomy was performed, elsa purulence was washed out from the knee joint. The wound was irrigated with copious amounts of sterile saline solution with 9 liters of bacitracin-impregnated sterile saline solution. The superior pouch joint line was all debrided and partial synovectomy was performed with meticulous hemostasis obtained to maintain. Subsequently, the deep fascia was closed with #1 Vicryl. The plan is for the patient to have a second washout and probable poly change pending her medical condition. The patient with the Encore poly was unavailable today for implantation even though it had been requested due to extreme weather issues. The patient was clearly septic and sick and needed the knee to be washed out, so for this reason the I\T\D was performed and going to be done in a staged process. The plan will come back in within 2-3 days for repeat washout again and probable poly change pending the patient's medical condition at that time. The patient is also scheduled for other surgery on her right leg where it is currently under consideration for below knee amputation of her right knee due to her necrotic foot. After thorough irrigation and debridement lavage the wound was closed with a medium bore Hemovac. The patient was taken to recovery room in stable condition. I attest to the content of the Intraoperative Record and any orders documented therein. Any exceptio ns are noted below.
[2016-10-21] MEDS ORDERED: EpHEDrine SULFATE INJ 50 MG/ML AMP IV PRN (13:30)
[2016-10-21] MEDS ORDERED: HYDROmorphone INJ 1 MG/ML SYR IV PRN (13:30)
[2016-10-21] MEDS ORDERED: ATROPINE SULFATE 0.1 MG/ML 5ML SYR IV PRN (13:30)
[2016-10-21] MEDS ORDERED: NALOXONE HCL 0.4 MG/1 ML VIAL/CARP IV PRN (13:30)
[2016-10-21] MEDS ORDERED: ONDANSETRON INJ 2 MG/ML 2 ML VIAL IV PRN (13:30)
[2016-10-21] MEDS ORDERED: PROMETHAZINE HCL INJ 12.5 MG in SODIUM CHLORIDE 0.9% 50ML 50 ML IV PRN (13:30)
[2016-10-21] MEDS ORDERED: LABETALOL HCL IV 5 MG/ML 20ML IV PRN (13:30)
[2016-10-21] MEDS ORDERED: ONDANSETRON INJ 2 MG/ML 2 ML VIAL ONE (13:33)
[2016-10-21] MEDS ORDERED: NovoLIN-R INSULIN PER UNIT CHARGE ONE (13:34)
[2016-10-21] MEDS ORDERED: INSULIN HUMAN REGULAR PER UNIT 10 UNITS in SYRINGE 0 ML IV STA (13:37)
--- NOTE | 2016-10-21 14:20 | Anesthesiology Progress Note ---
Anesthesia Post Op Note Date & Time Oct 21, 2016 at 14:20 Vital Signs Pain Intensity: 0 Vital Signs Past 12 Hours Date Time Temp Pulse Resp B/P Pulse Ox O2 Delivery O2 Flow Rate FiO2 10/21/16 14:15 36.4 97 16 166/71 100 Nasal Cannula 3 10/21/16 14:05 98 16 170/69 100 Nasal Cannula 3 10/21/16 13:55 93 16 162/82 100 Nasal Cannula 3 10/21/16 13:45 92 16 160/73 100 Mask 5 10/21/16 13:35 89 16 162/82 100 Mask 10 10/21/16 13:25 88 16 152/82 100 Mask 10 10/21/16 13:24 36.0 86 16 142/83 100 Mask 10 10/21/16 10:30 37.0 98 20 136/67 100 2.0 10/21/16 10:00 92 20 136/67 100 Nasal Cannula 2.0 10/21/16 09:30 37.0 101 24 137/69 100 2.0 10/21/16 08:30 37.1 94 20 140/68 100 3.0 10/21/16 08:02 36.9 100 16 125/68 99 2.0 10/21/16 08:00 37.1 90 21 125/68 100 Nasal Cannula 2.0 10/21/16 08:00 Nasal Cannula 10/21/16 08:00 100 Nasal Cannula 2.0 10/21/16 06:01 103 26 148/67 100 10/21/16 05:01 104 25 148/73 100 10/21/16 04:01 98 26 137/79 100 10/21/16 04:00 100 Nasal Cannula 2.0 10/21/16 04:00 37.2 10/21/16 03:01 101 25 145/69 100 Notes Mental Status: alert / awake / arousable, participated in evaluation Pt Amnestic to Procedure: Yes Nausea / Vomiting: adequately controlled Pain: adequately controlled Airway Patency, RR, SpO2: stable & adequate BP & HR: stable & adequate Hydration State: stable & adequate Anesthetic Complications: no major complications apparent
[2016-10-21 14:48] LABS: HEMATOCRIT 25.4 % (37-47)
[2016-10-21] MEDS: HYDROmorphone INJ 0.5 MG/0.5 ML SYR IV PRN ×2 (16:58→22:15)
--- NOTE | 2016-10-21 18:11 | Progress Note ---
Internal Med Progress Note Date of Service: Oct 21, 2016. Provider Documentation: SUBJECTIVE: denies pain no chest pain or sob hemodynamics stable afebrile plan for OR today OBJECTIVE: Vital Signs-as noted below Exam: General-alert and oriented. Not in distress ENT-normal hearing Neck-no neck masses Lungs-cta b/l no wheezing no crackles Heart-s1 and s2 heard, regular rate and rhythm no murmurs Abdomen-soft bowel sounds present non tender no distension Extremities-right foot in dressing no erythema Neuro-alert and awake moves extremities Lab data as noted below. ASSESSMENT & PLAN: SEVERE SEPSIS due to infected /septic left knee on empiric abx with Daptomycin /Cefepime /Flagyl ID eval appreciated wound culture /blood culture ordered Orthopedics on board -Plan for I& D today pt had left total knee replacement done in 04/2000 pt is NPO monitor in ICU DVT bilateral lower extremity plan for ivc filter by vascular surgery AFIB RVR : appreciate input form Cardiology started on IV Cardizem gtt holding IV heparin for low H&H pt is scheduled for Left knee I&D today ANEMIA : hb 7.4 form 8.6 possible due to severe sepsis hb 6.7 today no obvious signs of bleeding s/p two units transfused hb 8.5 post transfusion HYPOTENSION : due to severe sepsis given IV fluid bolus improved cont to monitor in ICU Recent Right foot toe amputations. hx of PVD s/p 2nd , 3rd and 4 th toe amputation with open wound , exposing bone wound care consulted iv abx as above vascular surgery recommends right BKA TYPE 2 DM : holding oral meds pt is NPO severe sepsis insulin SSI /basal Lantus pharmacy consulted for glycemic control will monitor FULL CODE DVT PROPHYLAXIS heparin DISPOSITION monitor in icu Vital Signs: Date Time Temp Pulse Resp B/P Pulse Ox O2 Delivery O2 Flow Rate FiO2 10/22/16 06:00 87 20 145/62 100 Nasal Cannula 2.0 10/22/16 04:00 37.2 99 18 137/70 98 Nasal Cannula 2.0 10/22/16 04:00 Nasal Cannula 2.0 10/22/16 02:00 94 24 126/63 98 Nasal Cannula 2.0 10/22/16 00:01 37.4 92 22 122/61 96 Nasal Cannula 2.0 10/21/16 23:59 Nasal Cannula 2.0 10/21/16 22:00 93 24 124/77 98 Nasal Cannula 3.0 10/21/16 20:00 37.2 97 24 134/51 99 Nasal Cannula 3.0 10/21/16 20:00 Nasal Cannula 3.0 10/21/16 18:15 26 124/49 10/21/16 18:01 21 137/52 10/21/16 18:00 19 137/49 10/21/16 16:45 31 160/54 10/21/16 16:31 27 159/55 10/21/16 16:30 31 159/54 10/21/16 16:15 36 141/50 10/21/16 16:01 30 163/54 10/21/16 16:00 98 Nasal Cannula 3.0 10/21/16 16:00 37.1 20 163/55 100 Nasal Cannula 3.0 10/21/16 15:15 27 186/61 10/21/16 15:00 27 154/75 10/21/16 14:45 37.1 120 28 190/62 96 10/21/16 14:45 28 190/62 100 Nasal Cannula 3.0 10/21/16 14:34 37.6 12 172/81 100 10/21/16 14:25 90 16 178/87 100 Nasal Cannula 3 10/21/16 14:15 36.4 97 16 166/71 100 Nasal Cannula 3 10/21/16 14:05 98 16 170/69 100 Nasal Cannula 3 10/21/16 13:55 93 16 162/82 100 Nasal Cannula 3 10/21/16 13:45 92 16 160/73 100 Mask 5 10/21/16 13:35 89 16 162/82 100 Mask 10 10/21/16 13:25 88 16 152/82 100 Mask 10 10/21/16 13:24 36.0 86 16 142/83 100 Mask 10 10/21/16 10:30 37.0 98 20 136/67 100 2.0 10/21/16 10:00 92 20 136/67 100 Nasal Cannula 2.0 10/21/16 09:30 37.0 101 24 137/69 100 2.0 Lab Results: Results Past 24 Hours Test 10/21/16 11:00 10/21/16 11:19 10/21/16 13:35 10/21/16 14:01 Range/Units Stool Occult Blood NEGATIVE NEGATIVE Bedside Glucose 203 217 213 70-90 mg/dl Test 10/21/16 14:16 10/21/16 14:22 10/21/16 16:47 10/21/16 20:14 Range/Units Bedside Glucose 213 194 70-90 mg/dl Hemoglobin 8.5 12.0-16.0 g/dL Hematocrit 25.4 37-47 % Prothrombin Time 12.1 9.0-12.0 SECONDS Prothromb Time International Ratio 1.1 0.9-1.1 Activated Partial Thromboplast Time 47.1 21.0-31.0 SECONDS Partial Thromboplastin Ratio 1.8 Test 10/21/16 20:15 10/21/16 22:00 10/21/16 23:37 10/22/16 03:30 Range/Units Bedside Glucose 181 194 70-90 mg/dl Hemoglobin 7.8 7.5 12.0-16.0 g/dL Hematocrit 23.6 22.5 37-47 % White Blood Count 14.21 4.8-10.8 K/uL Red Blood Count 2.55 4.2-5.4 M/uL Mean Corpuscular Volume 88.2 80-100 fL Mean Corpuscular Hemoglobin 29.4 25-34 pg Mean Corpuscular Hemoglobin Concent 33.3 32-36 g/dl Platelet Count 330 130-400 K/uL Mean Platelet Volume 9.5 7.4-10.4 fL Neutrophils (%) (Auto) 85.0 % Lymphocytes (%) (Auto) 4.6 % Monocytes (%) (Auto) 8.2 % Eosinophils (%) (Auto) 0.9 % Basophils (%) (Auto) 0.1 % Neutrophils # (Auto) 12.06 1.4-6.5 K/uL Lymphocytes # (Auto) 0.66 1.2-3.4 K/uL Monocytes # (Auto) 1.17 0.11-0.59 K/uL Eosinophils # (Auto) 0.13 0-0.5 K/uL Basophils # (Auto) 0.02 0-0.2 K/uL RDW Standard Deviation 51.8 36.4-46.3 fL RDW Coefficient of Variation 16.0 11.5-14.5 % Immature Granulocyte % (Auto) 1.2 % Immature Granulocyte # (Auto) 0.17 0.00-0.02 K/uL Red Blood Cell Morphology Unremarkable Activated Partial Thromboplast Time 49.0 21.0-31.0 SECONDS Partial Thromboplastin Ratio 1.9 Sodium Level 138 136-145 mmol/L Potassium Level 4.3 3.5-5.1 mmol/L Chloride Level 106 98-107 mmol/L Carbon Dioxide Level 27 21-32 mmol/L Anion Gap 5.0 3-11 mmol/L Blood Urea Nitrogen 21 7-18 mg/dl Creatinine 0.63 0.60-1.20 mg/dl Est Creatinine Clear Calc Drug Dose 99.3 ml/min Estimated GFR () 107.6 Estimated GFR (Non- 92.8 BUN/Creatinine Ratio 33.1 10-20 Random Glucose 175 70-99 mg/dl Calcium Level 6.7 8.5-10.1 mg/dl Total Bilirubin 0.5 0.2-1 mg/dl Aspartate Amino Transf (AST/SGOT) 16 15-37 U/L Alanine Aminotransferase (ALT/SGPT) 13 12-78 U/L Alkaline Phosphatase 89 45-117 U/L Total Protein 5.0 6.4-8.2 gm/dl Albumin 1.0 3.4-5.0 gm/dl Globulin 4.0 2.5-4.0 gm/dl Albumin/Globulin Ratio 0.3 0.9-2 Test 10/22/16 03:31 10/22/16 08:35 Range/Units Bedside Glucose 183 177 70-90 mg/dl Microbiology Results 10/21/16 Blood Culture, Received Pending 10/21/16 Blood Culture, Received Pending 10/21/16 Gram Stain - Final, Resulted 10/21/16 Bacterial Culture, Resulted Pending
[2016-10-21] MEDS: NYSTATIN POWDER 15GM BTL EXT SCH (19:37)
[2016-10-21] MEDS ORDERED: HEPARIN IV LOW DOSE NO BOLUS SCH ×2 (20:30)
[2016-10-21 20:42] LABS: INR 1.1 (0.9-1.1); PARTIAL THROMBOPLASTIN RATIO 1.8; PROTHROMBIN TIME (PATIENT) 12.1 SECONDS (9.0-12.0)
[2016-10-21 22:06] LABS: HEMATOCRIT 23.6 % (37-47)
[2016-10-22] VITALS (17 sets, daily range): BP systolic 122–166; BP diastolic 51–82; PULSE 86–108; TEMP 36.6–37.4; O2SAT 96–100
[2016-10-22] MEDS: NSS + 20MEQ KCL 1000ML 1,000 ML IV SCH ×2 (03:01→19:20)
[2016-10-22] MEDS: METRONIDAZOLE / NSS 500 MG in PREMIXED NSS 100 ML IV SCH (03:01)
[2016-10-22] MEDS: INSULIN ASPART 100 UNITS/ML 3 ML PEN SC SCH ×6 (03:36→23:49)
[2016-10-22 03:38] LABS: HEMATOCRIT 22.5 % (37-47); MEAN CELL VOLUME 88.2 fL (80-100); MEAN CORPUSCULAR HEMOGLOBIN 29.4 pg (25-34); MEAN CORPUSCULAR HGB CONC 33.3 g/dl (32-36); MEAN PLATELET VOLUME 9.5 fL (7.4-10.4); PLATELET COUNT 330 K/uL (130-400); RED BLOOD COUNT 2.55 M/uL (4.2-5.4); WHITE BLOOD COUNT 14.21 K/uL (4.8-10.8)
[2016-10-22 03:55] LABS: PARTIAL THROMBOPLASTIN RATIO 1.9
[2016-10-22 03:57] LABS: BUN/CREATININE RATIO 33.1 (10-20); CALCIUM 6.7 mg/dl (8.5-10.1); CREATININE 0.63 mg/dl (0.60-1.20); POTASSIUM 4.3 mmol/L (3.5-5.1)
[2016-10-22 04:00] LABS: ALB/GLOB RATIO 0.3 (0.9-2)
[2016-10-22] MEDS: HYDROmorphone INJ 0.5 MG/0.5 ML SYR IV PRN ×4 (04:39→23:48)
[2016-10-22 07:23] LABS: BASO % 0.1 %; BASO ABS # 0.02 K/uL (0-0.2); COMPLETE YES; EOS % 0.9 %; IG% 1.2 %; LYMPH % 4.6 %; LYMPH ABS # 0.66 K/uL (1.2-3.4); MONO % 8.2 %
--- NOTE | 2016-10-22 08:11 | Orthopedic Progress Note ---
Orthopedic Progress Note Date of Service Oct 22, 2016. Subjective Post OP Day: 1 (s/p left knee I&D ) Reports: pain controlled w PO medications, Denies: SOB, calf pain, chest pain, light headedness, nausea / vomiting Objective dressing clean dry and intact. she is able to wiggle toes, ankle pumps without difficulty. sensation is intact distally, diminished with light touch. no calf tenderness. Date Time Temp Pulse Resp B/P Pulse Ox O2 Delivery O2 Flow Rate FiO2 10/22/16 06:00 87 20 145/62 100 Nasal Cannula 2.0 10/22/16 04:00 37.2 99 18 137/70 98 Nasal Cannula 2.0 10/22/16 04:00 Nasal Cannula 2.0 10/22/16 02:00 94 24 126/63 98 Nasal Cannula 2.0 10/22/16 00:01 37.4 92 22 122/61 96 Nasal Cannula 2.0 10/21/16 23:59 Nasal Cannula 2.0 10/21/16 22:00 93 24 124/77 98 Nasal Cannula 3.0 10/21/16 20:00 37.2 97 24 134/51 99 Nasal Cannula 3.0 10/21/16 20:00 Nasal Cannula 3.0 10/21/16 18:15 26 124/49 10/21/16 18:01 21 137/52 10/21/16 18:00 19 137/49 10/21/16 16:45 31 160/54 10/21/16 16:31 27 159/55 10/21/16 16:30 31 159/54 10/21/16 16:15 36 141/50 10/21/16 16:01 30 163/54 10/21/16 16:00 98 Nasal Cannula 3.0 10/21/16 16:00 37.1 20 163/55 100 Nasal Cannula 3.0 10/21/16 15:15 27 186/61 10/21/16 15:00 27 154/75 10/21/16 14:45 37.1 120 28 190/62 96 10/21/16 14:45 28 190/62 100 Nasal Cannula 3.0 10/21/16 14:34 37.6 12 172/81 100 10/21/16 14:25 90 16 178/87 100 Nasal Cannula 3 10/21/16 14:15 36.4 97 16 166/71 100 Nasal Cannula 3 10/21/16 14:05 98 16 170/69 100 Nasal Cannula 3 10/21/16 13:55 93 16 162/82 100 Nasal Cannula 3 10/21/16 13:45 92 16 160/73 100 Mask 5 10/21/16 13:35 89 16 162/82 100 Mask 10 10/21/16 13:25 88 16 152/82 100 Mask 10 10/21/16 13:24 36.0 86 16 142/83 100 Mask 10 10/21/16 10:30 37.0 98 20 136/67 100 2.0 10/21/16 10:00 92 20 136/67 100 Nasal Cannula 2.0 10/21/16 09:30 37.0 101 24 137/69 100 2.0 10/21/16 08:30 37.1 94 20 140/68 100 3.0 10/21/16 08:02 36.9 100 16 125/68 99 2.0 Laboratory Results 24 Hours: Test 10/21/16 14:22 10/21/16 20:14 10/21/16 22:00 10/22/16 03:30 Hematocrit 25.4 % 23.6 % 22.5 % Hemoglobin 8.5 g/dL 7.8 g/dL 7.5 g/dL Prothromb Time International Ratio 1.1 Prothrombin Time 12.1 SECONDS White Blood Count 14.21 K/uL Red Blood Count 2.55 M/uL Mean Corpuscular Volume 88.2 fL Mean Corpuscular Hemoglobin 29.4 pg Mean Corpuscular Hemoglobin Concent 33.3 g/dl Platelet Count 330 K/uL Mean Platelet Volume 9.5 fL Neutrophils (%) (Auto) 85.0 % Lymphocytes (%) (Auto) 4.6 % Monocytes (%) (Auto) 8.2 % Eosinophils (%) (Auto) 0.9 % Basophils (%) (Auto) 0.1 % Neutrophils # (Auto) 12.06 K/uL Lymphocytes # (Auto) 0.66 K/uL Monocytes # (Auto) 1.17 K/uL Eosinophils # (Auto) 0.13 K/uL Basophils # (Auto) 0.02 K/uL Assessment & Plan Assessment: POD #1 s/p Left TKA I&D with intra-op cultures showing gram positive cocci, knee aspirate from 10/20 staph aur. -currently on empiric Abx Daptomycin/Cefepime/Flagyl -will need repeat I&D with poly exchange poss antibiotic beads, will discuss with dr bajwa, tentative plan for possibly Thursday. -currently has prevena wound vac and hemovac drain Severe Sepsis with septic left knee, s/p recent right foot toe amputations, dr steward to discuss BKA with patient DVT bilateral lower extremity, ivc filter placed by dr steward on 10/21/16 AFIB RVR : appreciate input form Cardiology ANEMIA : H/H today 7.5/22.5, received 2 units PRBCs yesterday TYPE 2 DM : holding oral meds insulin SSI /basal Lantus pharmacy consulted for glycemic control
[2016-10-22] MEDS: NYSTATIN POWDER 15GM BTL EXT SCH ×2 (09:30→21:15)
--- NOTE | 2016-10-22 09:44 | Critical Care Progress Note ---
Critical Care Progress Note Date of Service Oct 22, 2016. ICU Day ICU Day Number: [address] Lopez Subjective Patient is resting in bed comfortably, drowsy during the assessment states that she is pain in her left knee but otherwise denies any pain She did have a BM yesterday A ROS of 10 systems was completed and negative aside from above Objective General: not in acute distress, resting in bed Skin: no rashes noted, no suspicious lesions, wound on right LE stable- pictures taken, no longer flushed, she does have irritated skin surrounding the perineum and intertrigo in the folds CVS: S1/ S2 noted, irregularly irregular with mild tachy, no rubs/ murmurs noted , no cyanosis RVS: Clear throughout bilaterally, not in acute respiratory distress, no wheezing/ rales/ crackles noted Neck: inspection WNL, full ROM of neck ABD: BSx4, no pain/ tenderness on palpation, no organomegaly MSK: left knee has swelling and very tender to touch, minimal cellulitis noted however NVS: drowsy but alert when discussing care, oriented Lymph: No lymphadenopathy palpable Assessment & Plan 1. Sepsis secondary to infected left joint and possibly right foot 2. A fibb with RVR/ MAT 3. s/p right toe amputation with poor wound healing, concerning for OM 4. Poorly controlled DMII 5. Anemia; undifferentiated 6. HTN 7. Hyperchol 8. PVD 9. hypokalemia 10. Bilat DVT and superficial thrombophlebitis 11. POD1 s/p left knee I&D NVS - more alert this morning but still drowsy - monitor for signs of delirium CVS - continue PO diltiazem - bp responded well to fluids, currently on maintenance fluids - echo * Small, underfilled LV chamber size with mild concentric LVH. * Hyperdynamic LV systolic function, EF >70%. * No segmental left ventricular wall motion abnormalities are noted. * Grade I diastolic dysfunction. * Aortic valve sclerosis moderate, without significant aortic valvular stenosis. * Moderate mitral annular calcifications. - consult cardio - appreciate input RVS - O2 per nursing protocol ID - continue cefepime, flagyl and dapto - consider deescalating antibiotics after BKA - consult ID - appreciate input - follow CBC - blood culture- x2 gram positive cocci repeat blood cultures - pending - final culture from aspiration of knee- staph aureus - wound consult - ortho has been consulted - left knee I&D done and plan is to place antibiotic disc in 2-3 days - potential BKA today - nystatin powder for intertrigo HEME - reflective of anemia - will monitor CBC, has signed consent for transfusion - 2 units type and crossed, administered prior to first surgery - another 2 units held - had to transfuse 2 unit of blood 10/21/16 for a hgb of 6.7 - continue to follow the CBC - fecal occult negative - bilat DVT - Heparin drip intermittent - IVC filter placed GI - NPO - protonix IV daily RENAL - continue to monitor I&O - ellis is in FEN - replete K prn - 2 gm of mg given, follow - albumin 1.0 - continue to follow CMP ENDO - Dm educator - HBA1C 7.7 - Insulin novolog and bsg ac hs Resident Physician Supervision Note: Dr. Murrell was resident physician during care of patient. I separately evaluated patient and did history and exam. I discussed the case with the resident and generally agree with the findings and plan. Held heparin this morning for anticipation of OR today with Dr. Car. We'll continue broad-spectrum antibiotics for at least another 24 hours after source control via below the knee amputation. Reviewed initial cultures, organism is MRSA we will obtain echo and will ultimately need long-term IV axis. Currently has central venous axis is will be going back to the operating room. I have personally spent 50 minutes of critical care time in the direct management of this patient. This is a life/limb threatening event. This includes time spent evaluating patient, direct bedside care, chart review, placing orders, interpretation of diagnostic studies, discussion with consultants, patient, and family members, as well as other required patient management activities. This time is exclusive of all separately billable procedures, and teaching time and separate from and in addition to any other critical care service time. Data Medications: Current Inpatient Medications Medications (Trade) Dose Ordered Sig/Denisse Route Start Time Stop Time Status Last Admin Dose Admin Acetaminophen (Tylenol Tab) 650 mg Q4H PRN PO 10/19/16 22:00 11/18/16 21:59 Glucose (Glucose 40% Gel) 15-30 GRAMS 15 GRAMS... UD PRN PO 10/19/16 22:15 11/18/16 22:14 Glucose (Glucose Chew Tab) 4-8 Tablets 4 Tabl... UD PRN PO 10/19/16 22:15 11/18/16 22:14 Dextrose (Dextrose 50% 50ML Syringe) 25-50ML OF 50% DW IV FOR... UD PRN IV 10/19/16 22:15 11/18/16 22:14 Glucagon (Glucagon Inj) 1 mg UD PRN SQ 10/19/16 22:15 11/18/16 22:14 Ondansetron HCl (Zofran Inj) 4 mg Q4H PRN IV 10/19/16 22:45 11/18/16 22:44 Hydromorphone HCl (Dilaudid Inj) 0.2 mg Q4H PRN IV 10/19/16 22:45 11/02/16 22:44 10/22/16 04:39 0.2 MG Diltiazem HCl (Cardizem Cd Cap) 240 mg DAILY PO 10/20/16 09:00 11/19/16 08:59 Future Hold 10/20/16 10:13 240 MG Acetaminophen/ Hydrocodone Bitart 1 tab 1 tab Q4H PRN PO 10/19/16 23:00 11/02/16 22:59 Potassium Chloride/Sodium Chloride 1,000 ml @ 100 mls/hr Q10H IV 10/19/16 23:45 11/18/16 23:44 10/22/16 03:01 100 MLS/HR Metronidazole 500 mg/Prmx 100 ml @ 100 mls/hr Q8H IV 10/20/16 11:00 12/01/16 10:59 10/22/16 03:01 100 MLS/HR Cefepime HCl/ Dextrose (Maxipime IV/D5 100ml) 112.5 ml @ 200 mls/hr Q12H IV 10/20/16 11:00 12/01/16 10:14 10/21/16 22:46 200 MLS/HR Miscellaneous Information (Consult Glycemic Management Pharmacy) 1 ea UD PRN N/A 10/20/16 15:55 11/19/16 15:54 Insulin Aspart SLIDING SCALE G... Q4 SC 10/21/16 00:00 11/19/16 06:59 10/22/16 03:36 3 UNITS Heparin Sodium/ Dextrose (Heparin 25,000 Unit/500ml D5W) 500 ml @ 17 mls/hr Q24H PRN IV 10/21/16 00:15 11/20/16 00:14 Future Hold 10/21/16 21:25 17 MLS/HR Insulin Glargine (Lantus Solostar Pen) Per Scale BID SC 10/21/16 21:00 11/20/16 20:59 10/21/16 20:25 18 UNIT Nystatin 1 appln BID EXT 10/21/16 21:00 11/20/16 20:59 10/21/16 19:37 1 APPLN Dexamethasone 3.75 mg/Nystatin 30 ml/ Diphenhydramine HCl 300 mg/ Sucrose 45 ml/ Microcrystalline Cellulose 45 ml/ Barcode 1 ea swish in mouth and spit ... BID PRN PO 10/21/16 11:15 11/20/16 11:14 Daptomycin 600 mg/ Sodium Chloride 62 ml @ 100 mls/hr DAILY@1200 IV 10/22/16 12:00 11/05/16 11:59 Pantoprazole Sodium/Syringe (Protonix Inj/ Syringe) 10 ml @ 5 mls/min DAILY@11 IV 10/22/16 11:00 11/21/16 10:59 I & O: 24-Hour Column 10/22/16 08:00 Intake Total 4756 ml Output Total 1655 ml Balance 3101 ml Vital Signs: Date Time Temp Pulse Resp B/P Pulse Ox O2 Delivery O2 Flow Rate FiO2 10/22/16 06:00 87 20 145/62 100 Nasal Cannula 2.0 10/22/16 04:00 37.2 99 18 137/70 98 Nasal Cannula 2.0 10/22/16 04:00 Nasal Cannula 2.0 10/22/16 02:00 94 24 126/63 98 Nasal Cannula 2.0 10/22/16 00:01 37.4 92 22 122/61 96 Nasal Cannula 2.0 10/21/16 23:59 Nasal Cannula 2.0 10/21/16 22:00 93 24 124/77 98 Nasal Cannula 3.0 10/21/16 20:00 37.2 97 24 134/51 99 Nasal Cannula 3.0 10/21/16 20:00 Nasal Cannula 3.0 10/21/16 18:15 26 124/49 10/21/16 18:01 21 137/52 10/21/16 18:00 19 137/49 10/21/16 16:45 31 160/54 10/21/16 16:31 27 159/55 10/21/16 16:30 31 159/54 10/21/16 16:15 36 141/50 10/21/16 16:01 30 163/54 10/21/16 16:00 98 Nasal Cannula 3.0 10/21/16 16:00 37.1 20 163/55 100 Nasal Cannula 3.0 10/21/16 15:15 27 186/61 10/21/16 15:00 27 154/75 10/21/16 14:45 37.1 120 28 190/62 96 10/21/16 14:45 28 190/62 100 Nasal Cannula 3.0 10/21/16 14:34 37.6 12 172/81 100 10/21/16 14:25 90 16 178/87 100 Nasal Cannula 3 10/21/16 14:15 36.4 97 16 166/71 100 Nasal Cannula 3 10/21/16 14:05 98 16 170/69 100 Nasal Cannula 3 10/21/16 13:55 93 16 162/82 100 Nasal Cannula 3 10/21/16 13:45 92 16 160/73 100 Mask 5 10/21/16 13:35 89 16 162/82 100 Mask 10 10/21/16 13:25 88 16 152/82 100 Mask 10 10/21/16 13:24 36.0 86 16 142/83 100 Mask 10 10/21/16 10:30 37.0 98 20 136/67 100 2.0 10/21/16 10:00 92 20 136/67 100 Nasal Cannula 2.0 10/21/16 09:30 37.0 101 24 137/69 100 2.0 Laboratory Results: Last 24 Hours Test 10/21/16 11:00 10/21/16 11:19 10/21/16 13:35 10/21/16 14:01 Stool Occult Blood NEGATIVE Bedside Glucose 203 mg/dl 217 mg/dl 213 mg/dl Test 10/21/16 14:16 10/21/16 14:22 10/21/16 16:47 10/21/16 20:14 Bedside Glucose 213 mg/dl 194 mg/dl Hemoglobin 8.5 g/dL Hematocrit 25.4 % Prothrombin Time 12.1 SECONDS Prothromb Time International Ratio 1.1 Activated Partial Thromboplast Time 47.1 SECONDS Partial Thromboplastin Ratio 1.8 Test 10/21/16 20:15 10/21/16 22:00 10/21/16 23:37 10/22/16 03:30 Bedside Glucose 181 mg/dl 194 mg/dl Hemoglobin 7.8 g/dL 7.5 g/dL Hematocrit 23.6 % 22.5 % White Blood Count 14.21 K/uL Red Blood Count 2.55 M/uL Mean Corpuscular Volume 88.2 fL Mean Corpuscular Hemoglobin 29.4 pg Mean Corpuscular Hemoglobin Concent 33.3 g/dl Platelet Count 330 K/uL Mean Platelet Volume 9.5 fL Neutrophils (%) (Auto) 85.0 % Lymphocytes (%) (Auto) 4.6 % Monocytes (%) (Auto) 8.2 % Eosinophils (%) (Auto) 0.9 % Basophils (%) (Auto) 0.1 % Neutrophils # (Auto) 12.06 K/uL Lymphocytes # (Auto) 0.66 K/uL Monocytes # (Auto) 1.17 K/uL Eosinophils # (Auto) 0.13 K/uL Basophils # (Auto) 0.02 K/uL RDW Standard Deviation 51.8 fL RDW Coefficient of Variation 16.0 % Immature Granulocyte % (Auto) 1.2 % Immature Granulocyte # (Auto) 0.17 K/uL Red Blood Cell Morphology Unremarkable Activated Partial Thromboplast Time 49.0 SECONDS Partial Thromboplastin Ratio 1.9 Sodium Level 138 mmol/L Potassium Level 4.3 mmol/L Chloride Level 106 mmol/L Carbon Dioxide Level 27 mmol/L Anion Gap 5.0 mmol/L Blood Urea Nitrogen 21 mg/dl Creatinine 0.63 mg/dl Est Creatinine Clear Calc Drug Dose 99.3 ml/min Estimated GFR () 107.6 Estimated GFR (Non- 92.8 BUN/Creatinine Ratio 33.1 Random Glucose 175 mg/dl Calcium Level 6.7 mg/dl Total Bilirubin 0.5 mg/dl Aspartate Amino Transf (AST/SGOT) 16 U/L Alanine Aminotransferase (ALT/SGPT) 13 U/L Alkaline Phosphatase 89 U/L Total Protein 5.0 gm/dl Albumin 1.0 gm/dl Globulin 4.0 gm/dl Albumin/Globulin Ratio 0.3 Test 10/22/16 03:31 10/22/16 08:35 Bedside Glucose 183 mg/dl 177 mg/dl
[2016-10-22] MEDS ORDERED: INSULIN GLARGINE SOLOSTAR 100 UNITS/ML 3 ML PEN SC ONE (10:00)
--- NOTE | 2016-10-22 10:25 | Anesthesiology Progress Note ---
Anesthesia Post Op Note Date & Time Oct 22, 2016 at 10:24 Vital Signs Vital Signs Past 12 Hours Date Time Temp Pulse Resp B/P Pulse Ox O2 Delivery O2 Flow Rate FiO2 10/22/16 06:00 87 20 145/62 100 Nasal Cannula 2.0 10/22/16 04:00 37.2 99 18 137/70 98 Nasal Cannula 2.0 10/22/16 04:00 Nasal Cannula 2.0 10/22/16 02:00 94 24 126/63 98 Nasal Cannula 2.0 10/22/16 00:01 37.4 92 22 122/61 96 Nasal Cannula 2.0 10/21/16 23:59 Nasal Cannula 2.0 Notes Mental Status: alert / awake / arousable, participated in evaluation Pt Amnestic to Procedure: Yes Nausea / Vomiting: adequately controlled Pain: adequately controlled Airway Patency, RR, SpO2: stable & adequate BP & HR: stable & adequate Hydration State: stable & adequate Anesthetic Complications: no major complications apparent
--- NOTE | 2016-10-22 10:51 | Pharmacy Progress Note ---
Glycemic Control: Progress Nt Date of Service Oct 22, 2016. Scope Glycemic Pharmacist consulted by Dr Betancourt on 10/20/16 for glycemic control and to write orders per [facility] inpatient glycemic control protocol. Objective Accuchecks BSG (last 24hrs): Test 10/21/16 11:19 10/21/16 13:35 10/21/16 14:01 10/21/16 14:16 Bedside Glucose 203 mg/dl (70-90) 217 mg/dl (70-90) 213 mg/dl (70-90) 213 mg/dl (70-90) Test 10/21/16 16:47 10/21/16 20:15 10/21/16 23:37 10/22/16 03:30 Bedside Glucose 194 mg/dl (70-90) 181 mg/dl (70-90) 194 mg/dl (70-90) Random Glucose 175 mg/dl (70-99) Test 10/22/16 03:31 10/22/16 08:35 Bedside Glucose 183 mg/dl (70-90) 177 mg/dl (70-90) Laboratory Data (last 24hrs) Test 10/22/16 03:30 Anion Gap 5.0 mmol/L BUN/Creatinine Ratio 33.1 Blood Urea Nitrogen 21 mg/dl Creatinine 0.63 mg/dl Potassium Level 4.3 mmol/L Sodium Level 138 mmol/L White Blood Count 14.21 K/uL Red Blood Count 2.55 M/uL Hemoglobin 7.5 g/dL Hematocrit 22.5 % Mean Corpuscular Volume 88.2 fL Mean Corpuscular Hemoglobin 29.4 pg Mean Corpuscular Hemoglobin Concent 33.3 g/dl Platelet Count 330 K/uL Mean Platelet Volume 9.5 fL Neutrophils (%) (Auto) 85.0 % Lymphocytes (%) (Auto) 4.6 % Monocytes (%) (Auto) 8.2 % Eosinophils (%) (Auto) 0.9 % Basophils (%) (Auto) 0.1 % Neutrophils # (Auto) 12.06 K/uL Lymphocytes # (Auto) 0.66 K/uL Monocytes # (Auto) 1.17 K/uL Eosinophils # (Auto) 0.13 K/uL Basophils # (Auto) 0.02 K/uL HbA1c: Test 10/20/16 05:45 Hemoglobin A1c 7.7 % (4.5-5.6) H Recent Pertinent Medications Outpatient Anti-diabetic Regimen: * Lantus 18 units SQ BID * Novolog ACHS per sliding scale: < 150 0 units, 150-200 4 units; 201-250 8 units; 251-300 10 units; etc... * Glipizide XL 10mg PO daily * A1c = 7.7 % 10/20/16 The patient is currently receiving: * Basal insulin: Lantus 18 units SQ BID; give 1/2 dose (9units) if BSG less than 110 * Correctional Insulin: Novolog Correction per scale ACHS Goal Range: Low 110 mg/dL - High 140 mg/dL Correction Factor: 20 mg/dL/unit * Prandial insulin: Per carb ratio of 1 unit per 8 grams CHO consumed * Oral Agents: None currently Risk Factors for Insulin Resistance: * Infection: R foot osteomyelitis, septic L TKA, staph aureus bacteremia; receiving Daptomycin + Cefepime + Metronidazole IV * IVF: Heparin gtt currently on hold for surgery; Cefepime mixed in D5W * Recent Surgery: POD # 1 s/p IVC placement and I+D of L TKA; returning to OR today for possible R BKA * Diet: NPO for OR Assessment & Plan ASSESSMENT: 10/21/16 * Glycemic control has improved since insulin adjustments made yesterday * BSGs running 203-230 this AM * Pattern still suggests basal insulin deficiency, which was the problem yesterday as well. She did received 18 units of Lantus last PM - her usual home dosage. Fasting BSGs are improved this AM but she has required 7 units of Novolog correction overnight. She is NPO for surgery today. She received 1/2 her usual Lantus dose this AM (9 units). This is a reasonable starting point given NPO status. * Will increase correctional insulin dose should the basal insulin dose not be adequate for current stressors. * Will resume home Lantus dose this PM with 1/2 dose parameter added to lessen risk of hypoglycemia if patient not eating well post-op * OR planned today, will need to review meds used in OR to determine if dexamethasone used as this will greatly influence treatment plan 10/22/16 * Glycemic control continues to improve; last 6 BSGs 177-194 - acceptable for ICU / critically ill patient * It does not appear that this patient received steroids in the OR yesterday; will need to review chart later today to determine if steroids were given w/ today's procedure * Patient's PO intake has been poor over the last 2 days, small meal consumed at bedtime last evening, otherwise she has been NPO * Will give slightly reduced dose Lantus this AM due to continue NPO status * Overall she has been requiring ~50 units of insulin per day while NPO. BSGs are starting to trend down. PLAN FOR INPATIENT GLYCEMIC CONTROL: * Lantus 15 units x 1 this AM due to NPO status and planned OR * Continue Lantus 18 units SQ BID; give 1/2 dose (9 units) if BSG less than 110 * Continue correction factor of 20 mg/dl/unit * Continuing ratio of 1 unit per 8 grams CHO consumed * Continuing goal range of Low 110 mg/dL - High 140 mg/dL for now to allow for additional correction until BSGs are < 180 then reassess * Continue Q 4 hr BSG checks with coverage for now - can likely reduce to Q 6 hrs later today * Please note that the plan above was derived based on current level of insulin resistance and hospital stress. These recommendations are appropriate for inpatient admission only. Plan of care upon discharge will need to be reassessed to avoid potential outpatient hypo/hyperglycemia. Thank you.
[2016-10-22] MEDS: PANTOprazole INJ 40 MG in SYRINGE 0 ML IV SCH (11:09)
[2016-10-22] MEDS: DAPTOmycin IV 600 MG in SODIUM CHLORIDE 0.9% 50ML 50 ML IV SCH (11:13)
--- NOTE | 2016-10-22 12:52 | Progress Note ---
Internal Med Progress Note Date of Service: Oct 22, 2016. Provider Documentation: SUBJECTIVE: RESTING COMFORTABLY DENIES ANY PAIN NO SOB NO NAUSEA PLAN FOR or TODAY FOR RIGHT BKA OBJECTIVE: Vital Signs-as noted below Exam: General-alert and oriented. Not in distress ENT-normal hearing Neck-no neck masses Lungs-cta b/l no wheezing no crackles Heart-s1 and s2 heard, regular rate and rhythm no murmurs Abdomen-soft bowel sounds present non tender no distension Extremities-right foot in dressing no erythema Neuro-alert and awake moves extremities Lab data as noted below. ASSESSMENT & PLAN: SEVERE SEPSIS due to infected /septic left knee on empiric abx with Daptomycin /Cefepime /Flagyl ID eval appreciated wound culture /blood culture ordered Orthopedics on board pt had left total knee replacement done in 04/2000 s/p I and D of left TKA cx mrsa from I and D. hemodynamics stable currently. DVT bilateral lower extremity s/p ivc filter by vascular surgery AFIB RVR : appreciate input form Cardiology started on IV Cardizem gtt holding IV heparin for low H&H pt is scheduled for Left knee I&D today ANEMIA : hb 7.4 form 8.6 possible due to severe sepsis hb 6.7 today no obvious signs of bleeding s/p two units transfused hb 8.5 post transfusion 10/22/15 hb 7.5 today 10/23/16 and plan for prbc transfusion in OR HYPOTENSION : due to severe sepsis given IV fluid bolus improved cont to monitor in ICU Recent Right foot toe amputations. hx of PVD s/p 2nd , 3rd and 4 th toe amputation with open wound , exposing bone wound care consulted iv abx as above vascular surgery recommends right BKA and plan for OR today TYPE 2 DM : holding oral meds pt is NPO severe sepsis insulin SSI /basal Lantus pharmacy consulted for glycemic control will monitor FULL CODE DVT PROPHYLAXIS scds DISPOSITION monitor in icu Vital Signs: Date Time Temp Pulse Resp B/P Pulse Ox O2 Delivery O2 Flow Rate FiO2 10/22/16 10:00 88 16 131/57 99 Nasal Cannula 2.0 10/22/16 09:59 88 16 148/63 99 10/22/16 08:00 37.1 91 22 145/61 99 Nasal Cannula 2.0 10/22/16 08:00 98 Nasal Cannula 2.0 10/22/16 08:00 Nasal Cannula 10/22/16 06:00 87 20 145/62 100 Nasal Cannula 2.0 10/22/16 04:00 37.2 99 18 137/70 98 Nasal Cannula 2.0 10/22/16 04:00 Nasal Cannula 2.0 10/22/16 02:00 94 24 126/63 98 Nasal Cannula 2.0 10/22/16 00:01 37.4 92 22 122/61 96 Nasal Cannula 2.0 10/21/16 23:59 Nasal Cannula 2.0 10/21/16 22:00 93 24 124/77 98 Nasal Cannula 3.0 10/21/16 20:00 37.2 97 24 134/51 99 Nasal Cannula 3.0 10/21/16 20:00 Nasal Cannula 3.0 10/21/16 18:15 26 124/49 10/21/16 18:01 21 137/52 10/21/16 18:00 19 137/49 10/21/16 16:45 31 160/54 10/21/16 16:31 27 159/55 10/21/16 16:30 31 159/54 10/21/16 16:15 36 141/50 10/21/16 16:01 30 163/54 10/21/16 16:00 98 Nasal Cannula 3.0 10/21/16 16:00 37.1 20 163/55 100 Nasal Cannula 3.0 10/21/16 15:15 27 186/61 10/21/16 15:00 27 154/75 10/21/16 14:45 37.1 120 28 190/62 96 10/21/16 14:45 28 190/62 100 Nasal Cannula 3.0 10/21/16 14:34 37.6 12 172/81 100 10/21/16 14:25 90 16 178/87 100 Nasal Cannula 3 10/21/16 14:15 36.4 97 16 166/71 100 Nasal Cannula 3 10/21/16 14:05 98 16 170/69 100 Nasal Cannula 3 10/21/16 13:55 93 16 162/82 100 Nasal Cannula 3 10/21/16 13:45 92 16 160/73 100 Mask 5 10/21/16 13:35 89 16 162/82 100 Mask 10 10/21/16 13:25 88 16 152/82 100 Mask 10 10/21/16 13:24 36.0 86 16 142/83 100 Mask 10 Lab Results: Results Past 24 Hours Test 10/21/16 13:35 10/21/16 14:01 10/21/16 14:16 10/21/16 14:22 Range/Units Bedside Glucose 217 213 213 70-90 mg/dl Hemoglobin 8.5 12.0-16.0 g/dL Hematocrit 25.4 37-47 % Test 10/21/16 16:47 10/21/16 20:14 10/21/16 20:15 10/21/16 22:00 Range/Units Bedside Glucose 194 181 70-90 mg/dl Prothrombin Time 12.1 9.0-12.0 SECONDS Prothromb Time International Ratio 1.1 0.9-1.1 Activated Partial Thromboplast Time 47.1 21.0-31.0 SECONDS Partial Thromboplastin Ratio 1.8 Hemoglobin 7.8 12.0-16.0 g/dL Hematocrit 23.6 37-47 % Test 10/21/16 23:37 10/22/16 03:30 10/22/16 03:31 10/22/16 08:35 Range/Units Bedside Glucose 194 183 177 70-90 mg/dl White Blood Count 14.21 4.8-10.8 K/uL Red Blood Count 2.55 4.2-5.4 M/uL Hemoglobin 7.5 12.0-16.0 g/dL Hematocrit 22.5 37-47 % Mean Corpuscular Volume 88.2 80-100 fL Mean Corpuscular Hemoglobin 29.4 25-34 pg Mean Corpuscular Hemoglobin Concent 33.3 32-36 g/dl Platelet Count 330 130-400 K/uL Mean Platelet Volume 9.5 7.4-10.4 fL Neutrophils (%) (Auto) 85.0 % Lymphocytes (%) (Auto) 4.6 % Monocytes (%) (Auto) 8.2 % Eosinophils (%) (Auto) 0.9 % Basophils (%) (Auto) 0.1 % Neutrophils # (Auto) 12.06 1.4-6.5 K/uL Lymphocytes # (Auto) 0.66 1.2-3.4 K/uL Monocytes # (Auto) 1.17 0.11-0.59 K/uL Eosinophils # (Auto) 0.13 0-0.5 K/uL Basophils # (Auto) 0.02 0-0.2 K/uL RDW Standard Deviation 51.8 36.4-46.3 fL RDW Coefficient of Variation 16.0 11.5-14.5 % Immature Granulocyte % (Auto) 1.2 % Immature Granulocyte # (Auto) 0.17 0.00-0.02 K/uL Red Blood Cell Morphology Unremarkable Activated Partial Thromboplast Time 49.0 21.0-31.0 SECONDS Partial Thromboplastin Ratio 1.9 Sodium Level 138 136-145 mmol/L Potassium Level 4.3 3.5-5.1 mmol/L Chloride Level 106 98-107 mmol/L Carbon Dioxide Level 27 21-32 mmol/L Anion Gap 5.0 3-11 mmol/L Blood Urea Nitrogen 21 7-18 mg/dl Creatinine 0.63 0.60-1.20 mg/dl Est Creatinine Clear Calc Drug Dose 99.3 ml/min Estimated GFR () 107.6 Estimated GFR (Non- 92.8 BUN/Creatinine Ratio 33.1 10-20 Random Glucose 175 70-99 mg/dl Calcium Level 6.7 8.5-10.1 mg/dl Total Bilirubin 0.5 0.2-1 mg/dl Aspartate Amino Transf (AST/SGOT) 16 15-37 U/L Alanine Aminotransferase (ALT/SGPT) 13 12-78 U/L Alkaline Phosphatase 89 45-117 U/L Total Protein 5.0 6.4-8.2 gm/dl Albumin 1.0 3.4-5.0 gm/dl Globulin 4.0 2.5-4.0 gm/dl Albumin/Globulin Ratio 0.3 0.9-2 Microbiology Results 10/21/16 Blood Culture, Received Pending 10/21/16 Blood Culture, Received Pending
--- NOTE | 2016-10-22 12:55 | Cardiology Follow-Up ---
Subjective Subjective Date of Service: Oct 22, 2016. Pt evaluation today including: conversation w/ patient, physical exam, chart review, lab review, review of studies, review of inpatient medication list Additional Details: Pt seen and examined, states that she's ok today. Denies cp, sob, palpitations, lightheadedness or dizziness. Tele reviewed: sinus rhythm with frequent atrial activity. Review of Systems Respiratory: No cough, No dyspnea at rest, No dyspnea on exertion, No hemoptysis, No problem reported, No see HPI, No shortness of breath, No sputum, No wheezing Cardiac: No PND, No chest pain, No claudication, No edema, No orthopnea, No palpitations, No problem reported, No see HPI Objective Vital Signs Last Vital Signs Documentation Date Time Temp Pulse Resp B/P Pulse Ox O2 Delivery O2 Flow Rate FiO2 10/22/16 10:00 88 16 131/57 99 Nasal Cannula 2.0 10/22/16 08:00 37.1 Physical Exam: General Appearance: WD/WN, no apparent distress Eyes: bilateral eyes EOMI, bilateral eyes PERRL, bilateral eyes normal inspection ENT: normal ENT inspection, hearing grossly normal, pharynx normal Neck: supple, no adenopathy, thyroid normal, no JVD, no carotid bruits, trachea midline Respiratory/Chest: chest non-tender, lungs clear, normal breath sounds, no respiratory distress, no accessory muscle use Cardiovascular: no JVD, + systolic murmur (3/6 mid to late gabe, rsb, 2nd ICS without radiation), + gallop/S4, + irregularly irregular Abdomen: normal bowel sounds, non tender, soft, no organomegaly Neurologic/Psychiatric: energy administrator II-XII nml as tested, no motor/sensory deficits, alert, normal mood/affect, oriented x 3, + pertinent finding (lethargic but appropriate) Skin: normal color, warm/dry, no rash Lymphatic: no adenopathy Assessment and Plan 1. paroxysmal atrial fibrillation has history resolved, now sinus with frequent atrial ectopy no cardiac treatment necessary no need for anticoagulation for a cardioembolic source necessary at this time ok to restart po cardizem after surgery today 2. preop risk assessment hyperdynamic LV systolic function hx of paf no cardiac symptoms patient counseled that I would place her as a moderate risk for adverse axel- operative cardiovascular event, risk approximately <5% further explained that no further testing or intervention would further lower that risk patient states that she understands, is accepting of that risk and wishes to proceed with surgery no need to delay from cardiac standpoint would avoid any further beta blockers at this time given that she is naive to them
--- NOTE | 2016-10-22 12:59 | Orthopedic Progress Note ---
Orthopedic Progress Note Date of Service Oct 22, 2016. Subjective Reports: complaints (right foot necrosis. ) Additional Notes: Right foot necrosis. Objective calves soft nontender, dressing C/D/I, A&O x3 cap refill 3 sec. Necrosis right distal foot with exposed bone. Cellulitis forefoot with proximal streaking. +Foul odor right foot. Pretibial edema. No palpable pulses, feet somewhat warm. Scant hair growth B LE. Date Time Temp Pulse Resp B/P Pulse Ox O2 Delivery O2 Flow Rate FiO2 10/22/16 10:00 88 16 131/57 99 Nasal Cannula 2.0 10/22/16 09:59 88 16 148/63 99 10/22/16 08:00 37.1 91 22 145/61 99 Nasal Cannula 2.0 10/22/16 08:00 98 Nasal Cannula 2.0 10/22/16 08:00 Nasal Cannula 10/22/16 06:00 87 20 145/62 100 Nasal Cannula 2.0 10/22/16 04:00 37.2 99 18 137/70 98 Nasal Cannula 2.0 10/22/16 04:00 Nasal Cannula 2.0 10/22/16 02:00 94 24 126/63 98 Nasal Cannula 2.0 10/22/16 00:01 37.4 92 22 122/61 96 Nasal Cannula 2.0 10/21/16 23:59 Nasal Cannula 2.0 10/21/16 22:00 93 24 124/77 98 Nasal Cannula 3.0 10/21/16 20:00 37.2 97 24 134/51 99 Nasal Cannula 3.0 10/21/16 20:00 Nasal Cannula 3.0 10/21/16 18:15 26 124/49 10/21/16 18:01 21 137/52 10/21/16 18:00 19 137/49 10/21/16 16:45 31 160/54 10/21/16 16:31 27 159/55 10/21/16 16:30 31 159/54 10/21/16 16:15 36 141/50 10/21/16 16:01 30 163/54 10/21/16 16:00 98 Nasal Cannula 3.0 10/21/16 16:00 37.1 20 163/55 100 Nasal Cannula 3.0 10/21/16 15:15 27 186/61 10/21/16 15:00 27 154/75 10/21/16 14:45 37.1 120 28 190/62 96 10/21/16 14:45 28 190/62 100 Nasal Cannula 3.0 10/21/16 14:34 37.6 12 172/81 100 10/21/16 14:25 90 16 178/87 100 Nasal Cannula 3 10/21/16 14:15 36.4 97 16 166/71 100 Nasal Cannula 3 10/21/16 14:05 98 16 170/69 100 Nasal Cannula 3 10/21/16 13:55 93 16 162/82 100 Nasal Cannula 3 10/21/16 13:45 92 16 160/73 100 Mask 5 10/21/16 13:35 89 16 162/82 100 Mask 10 10/21/16 13:25 88 16 152/82 100 Mask 10 10/21/16 13:24 36.0 86 16 142/83 100 Mask 10 Laboratory Results 24 Hours: Test 10/21/16 14:22 10/21/16 20:14 10/21/16 22:00 10/22/16 03:30 Hematocrit 25.4 % 23.6 % 22.5 % Hemoglobin 8.5 g/dL 7.8 g/dL 7.5 g/dL Prothromb Time International Ratio 1.1 Prothrombin Time 12.1 SECONDS White Blood Count 14.21 K/uL Red Blood Count 2.55 M/uL Mean Corpuscular Volume 88.2 fL Mean Corpuscular Hemoglobin 29.4 pg Mean Corpuscular Hemoglobin Concent 33.3 g/dl Platelet Count 330 K/uL Mean Platelet Volume 9.5 fL Neutrophils (%) (Auto) 85.0 % Lymphocytes (%) (Auto) 4.6 % Monocytes (%) (Auto) 8.2 % Eosinophils (%) (Auto) 0.9 % Basophils (%) (Auto) 0.1 % Neutrophils # (Auto) 12.06 K/uL Lymphocytes # (Auto) 0.66 K/uL Monocytes # (Auto) 1.17 K/uL Eosinophils # (Auto) 0.13 K/uL Basophils # (Auto) 0.02 K/uL Assessment & Plan Assessment: POD #1 s/p Left TKA I&D with intra-op cultures showing gram positive cocci, knee aspirate from 10/20 staph aur. -currently on empiric Abx Daptomycin/Cefepime/Flagyl -will need repeat I&D with poly exchange poss antibiotic beads, will discuss with dr bajwa, tentative plan for possibly Thursday. -currently has prevena wound vac and hemovac drain Severe Sepsis with septic left knee Gangrene right distal foot with exposed metatarsal bones; Dr Botello recommends R LE BKA Right BKA scheduled for Dr Car to perform today. Consent on chart. DVT bilateral lower extremity, ivc filter placed by dr botello on 10/21/16 AFIB RVR : appreciate input form Cardiology ANEMIA : H/H today 7.5/22.5, received 2 units PRBCs yesterday TYPE 2 DM : holding oral meds insulin SSI /basal Lantus pharmacy consulted for glycemic control Plan: NPO Right LE BKA today by Dr Josep Bajwa for repeat I and D L knee with poly exchange vs explantation and anbx spacer.
[2016-10-22] MEDS ORDERED: ROCURONIUM BROMIDE 10 MG/ML 5 ML VIAL ONE (13:11)
[2016-10-22] MEDS ORDERED: PROPOFOL IV EMULSION 10 MG/ML 20 ML VIAL IV ONE (13:11)
[2016-10-22] MEDS ORDERED: LIDOCAINE HCL 2% 2 ML VIAL (20MG/ML) ONE (13:11)
[2016-10-22] MEDS ORDERED: SUCCINYLCHOLINE CHLORIDE 20 MG/ML 10 ML VIAL IV ONE (13:11)
[2016-10-22] MEDS ORDERED: FENTANYL CITRATE INJ 50 MCG/1 ML 2 ML VIAL ONE ×2 (13:12→14:53)
[2016-10-22] MEDS ORDERED: KETAMINE HCL INJ 50 MG/ML 10 ML VIAL ONE (13:29)
[2016-10-22] MEDS ORDERED: BUPIVACAINE 0.5 % 5 MG/1 ML MPF 30ML VIAL ONE (13:30)
[2016-10-22] MEDS ORDERED: MIDAZOLAM HCL 1 MG/ML 2ML VIAL ONE (13:30)
[2016-10-22] MEDS ORDERED: METOPROLOL TARTRATE 1 MG/ML VIAL ONE (13:51)
[2016-10-22] MEDS ORDERED: MoRPHine SULFATE 2 MG/ML CARP ONE ×2 (14:05→15:28)
[2016-10-22] MEDS ORDERED: ONDANSETRON INJ 2 MG/ML 2 ML VIAL ONE (14:07)
[2016-10-22] MEDS ORDERED: BACITRACIN 50,000 UNITS IR ONE (15:20)
--- NOTE | 2016-10-22 15:34 | [facility] Post Operative Brief Note ---
Immediate Operative Summary Operative Date Oct 22, 2016. Pre-Operative Diagnosis Right foot necrosis, peripheral vascular disease, gangrene Post-Operative Diagnosis Right foot necrosis, peripheral vascular disease, gangrene Procedure(s) Performed Right Below Knee Amputation; Myotenodesis Surgeon Dr. Prasanna Car Pipelines Superintendent Surgeon(s) Christ Newton PA-C Estimated Blood Loss 20 ML Findings See dict Specimens A. right lower leg Drains HV x 1 Anesthesia GLMA Complication(s) None Disposition Recovery Room / PACU
--- NOTE | 2016-10-22 16:14 | Anesthesiology Progress Note ---
Anesthesia Post Op Note Date & Time Oct 22, 2016 at 16:14 Vital Signs Pain Intensity: 0 Vital Signs Past 12 Hours Date Time Temp Pulse Resp B/P Pulse Ox O2 Delivery O2 Flow Rate FiO2 10/22/16 16:05 96 24 128/68 97 Nasal Cannula 4 10/22/16 15:55 96 24 130/74 100 Mask 10 10/22/16 15:45 100 22 130/72 100 Mask 10 10/22/16 15:38 36.9 100 20 133/69 100 Mask 10 10/22/16 12:00 96 Nasal Cannula 2.0 10/22/16 10:00 88 16 131/57 99 Nasal Cannula 2.0 10/22/16 09:59 88 16 148/63 99 10/22/16 08:00 37.1 91 22 145/61 99 Nasal Cannula 2.0 10/22/16 08:00 98 Nasal Cannula 2.0 10/22/16 08:00 Nasal Cannula 10/22/16 06:00 87 20 145/62 100 Nasal Cannula 2.0 Notes Mental Status: alert / awake / arousable, participated in evaluation Pt Amnestic to Procedure: Yes Nausea / Vomiting: adequately controlled Pain: adequately controlled Airway Patency, RR, SpO2: stable & adequate BP & HR: stable & adequate Hydration State: stable & adequate Anesthetic Complications: no major complications apparent
--- NOTE | 2016-10-22 18:18 | OPERATIVE REPORT ---
DATE OF OPERATION: 10/22/2016 PREOPERATIVE DIAGNOSES: 1. Right foot necrosis. 2. Gangrene, right lower extremity. 3. Peripheral artery disease. 4. Bilateral lower extremity deep venous thromboses. 5. Sepsis. POSTOPERATIVE DIAGNOSES: Same. PROCEDURE: Right below knee amputation. Bio-Tenodesis distal tibia. SURGEON: Dr. Car. [employer]OUTE [employer]ACH[employer]ES: Christ Newton PA-C who was present for patient positioning, sterile prep and drape, management of retractors and instruments. He was present through the critical portions of the case including wound closure, application of sterile dressing and transport of the patient to recovery. ANESTHESIA: General LMA. SPECIMENS: Right lower extremity below knee amputation. DRAINS: Hemovac x1. COMPLICATIONS: None. BLOOD LOSS: 20 mL. PERTINENT HISTORY: This is a 66-year-old female who developed gangrenous ulcers to the right lower extremity. She had care provided by a provider in [place] several weeks ago, developed worsening of her foot condition with necrosis of the wounds and exposed bone. She then developed redness, pain and swelling of her left knee, presented to [facility] and admitted to the hospital with elevated white count. Aspiration demonstrated septic left total knee arthroplasty and subsequently underwent irrigation and debridement with Dr. Ibarra on 10/21/2016. She was seen by Dr. Botello, who attempted to revascularize her lower extremity, difficulty with stenting, found to be not amenable for any further vascular care and he recommended below knee amputation on the right lower extremity. The patient was then scheduled for surgery as indicated. All potential risks, benefits, complications, alternatives, rehab, potential for incomplete relief of symptoms, need for further surgery, DVT, PE, , persistent pain, swelling, scarring, weakness, neurovascular injury, wound complications, and need for further amputation discussed with the patient. The patient decided to proceed with the procedure as indicated. PROCEDURE: The patient was taken to the operative suite, placed supine on the operating table. I reviewed the consent and identification of proper operative site, the patient was anesthetized, LMA was placed. Right lower extremity tourniquet was applied high on the thigh. Right lower extremity was then sterilely prepped and draped in usual fashion, elevated and tourniquet inflated to 350 mmHg. There was no exsanguination performed due to the gangrenous changes of the foot. Next, a 10 blade scalpel was used to make an incision approximately 11 cm distal to the tibial tubercle anteriorly. This incision was then carried from the midaxial line to the mid axial line. Next, electrocautery was used to cauterize any bleeding vessels and incision was then completed with a longer posterior flap in the medial and lateral aspects of the lower extremity and then sweeping under the posterior lower leg approximately distal to the musculotendinous junction of the gastrocnemius soleus. Next, the careful dissection was performed with Metzenbaum scissors medially and laterally locating and ligating and cauterizing any veins encountered. Next, the peroneal vasculature was identified, dissected with Metzenbaum scissors, traced proximally and ligated with #2 silk tie, which was beveled. Next, the medial saphenous vein was identified and noted to have extensive venous clot throughout it and significant calcifications to the adjacent venae comitantes. Next, the tibialis anterior and the other anterior muscular structures were transected with electrocautery. The tibia was skeletonized and Hohmann retractors were placed posteriorly to protect the neurovascular bundle and the tibial resection made approximately 10 cm distal to the tibial tubercle. Next, the fibula was identified and resected 1 cm proximal to the level of resection of the tibia. This was performed on a slight oblique angle. Next, the soft tissue and muscle was stripped from the posterior aspect of the tibia and the fibula. The posterior tibial nerve was identified and tracked proximally, placed on stretch, cut with a Metzenbaum scissors and allowed to retract deep within the stump. The tibial artery and vein were then identified and then ligated with #2 silk tie. The peroneal and saphenous vessels were also identified and ligated with #2 silk ties proximal aspect of the stump. Next, the gastrocsoleus complex was then transected with a 10 blade scalpel and the residual limb was then passed off as specimen. Next, a 10 blade scalpel was used to filet the muscular tissue, specifically the FDL, posterior tib and the gastrocsoleus complex for a subtle taper to the distal aspect of the flap. This was then copiously irrigated with lavage solution with bacitracin. Four 2.5-mm drill holes were made into the distal aspect of the tibia after the anterior aspect of the tibia was then cut in oblique angle to soften the contour of the anterior distal tibia. Next, the contours of the tibia were then carefully rasped with a bone rasp and irrigated with sterile normal saline. Next, the fascia from the gastrocsoleus was then attached to the distal aspect of the tibia via #2 Ultrabraid sutures with buried knots to provide a stable covering over the distal tibia. After the sutures were tied and cut, the fascia was then closed using buried interrupted #1 Vicryl sutures. After the stump was appropriately shaped and contoured, wound was copiously irrigated once again with sterile normal saline and a deep drain 10-Irish Hemovac was placed exiting anterolaterally followed by closure of the dermis with interrupted buried 2-0 Vicryl sutures. Next, the skin was closed using interrupted 4-0 nylon sutures. A sterile compressive stump dressing was applied, overwrapped with Jeremiah wraps. The tourniquet was released. The patient was awakened and taken to recovery in stable condition. I attest to the content of the Intraoperative Record and any orders documented therein. Any exceptions are noted below. DEB
[2016-10-22] MEDS ORDERED: NURSING VERBAL MED ORDER ONE (19:30)
[2016-10-22] MEDS: INSULIN GLARGINE SOLOSTAR 100 UNITS/ML 3 ML PEN SC SCH (21:19)
[2016-10-22 22:12] LABS: HEMATOCRIT 26.3 % (37-47)
[2016-10-23] VITALS (17 sets, daily range): BP systolic 117–176; BP diastolic 54–83; PULSE 92–108; TEMP 36.7–37.1; O2SAT 96–100
[2016-10-23 00:33] LABS: PARTIAL THROMBOPLASTIN RATIO 1.9
[2016-10-23] MEDS: HEPARIN 25,000 UNIT/500ML D5W 500 ML IV PRN ×2 (00:45→18:08)
[2016-10-23] MEDS: HYDROCODONE/ACETAMOPHEN 5/325MG TAB PO PRN ×4 (02:34→19:57)
[2016-10-23] MEDS: HYDROmorphone INJ 0.5 MG/0.5 ML SYR IV PRN (03:57)
[2016-10-23] MEDS: INSULIN ASPART 100 UNITS/ML 3 ML PEN SC SCH ×5 (03:58→20:03)
[2016-10-23] MEDS: NSS + 20MEQ KCL 1000ML 1,000 ML IV SCH ×2 (03:58→14:07)
[2016-10-23 06:41] LABS: HEMATOCRIT 25.9 % (37-47); MEAN CELL VOLUME 89.3 fL (80-100); MEAN CORPUSCULAR HEMOGLOBIN 29.7 pg (25-34); MEAN CORPUSCULAR HGB CONC 33.2 g/dl (32-36); MEAN PLATELET VOLUME 9.8 fL (7.4-10.4); PLATELET COUNT 345 K/uL (130-400); WHITE BLOOD COUNT 13.28 K/uL (4.8-10.8)
[2016-10-23 07:02] LABS: PARTIAL THROMBOPLASTIN RATIO 1.8
[2016-10-23 07:09] LABS: BUN/CREATININE RATIO 35.3 (10-20); CALCIUM 7.1 mg/dl (8.5-10.1); CREATININE 0.45 mg/dl (0.60-1.20); POTASSIUM 4.2 mmol/L (3.5-5.1)
[2016-10-23 07:11] LABS: ALB/GLOB RATIO 0.3 (0.9-2)
[2016-10-23 07:34] LABS: ANISOCYTOSIS PRESENT; COMPLETE YES; EOSINOPHIL % 4.3 %; LARGE PLATELETS 1+; META ABS # 0.35 K/uL (0-0); METAMYELOCYTE % 2.6 %; MYELOCYTE % 0.9 %; NEUTROPHILS % 81.9 %; TOXIC GRANULATION 1+
[2016-10-23] MEDS ORDERED: HEPARIN IV BOLUS 3,000 UNIT in SYRINGE 0 ML IV ONE (07:45)
--- NOTE | 2016-10-23 07:46 | Orthopedic Progress Note ---
Orthopedic Progress Note Date of Service Oct 23, 2016. Subjective Post OP Day: 1 Reports: complaints (States the RLE and the left knee "don't feel that bad."), feeling well, Denies: SOB, calf pain, chest pain, light headedness, nausea / vomiting Objective N/V intact, dressing C/D/I, A&O x3, hemovac drainage (0 cc on the right, ~10 cc on the left) Right BKA site: Dressing clean and dry. Area feels soft today. Dressing kept in place. Will change dressing tomorrow. L knee: RASHAAD bandage in place. Hemovac still in place. Prevena dressing on and functioning. Date Time Temp Pulse Resp B/P Pulse Ox O2 Delivery O2 Flow Rate FiO2 10/23/16 06:00 101 19 140/75 99 152/77 10/23/16 05:00 95 18 157/70 98 10/23/16 04:01 99 20 124/70 97 148/64 10/23/16 04:00 36.8 10/23/16 04:00 97 Nasal Cannula 2.0 10/23/16 03:00 100 24 176/75 98 10/23/16 02:01 92 26 141/76 99 171/68 10/23/16 01:00 102 21 163/69 98 10/23/16 00:01 99 22 134/78 97 169/69 10/23/16 00:01 37.1 10/23/16 00:00 93 21 171/71 97 10/22/16 23:59 97 Nasal Cannula 2.0 10/22/16 23:00 99 26 166/70 99 10/22/16 22:00 99 24 151/51 100 Nasal Cannula 2.0 10/22/16 20:00 Nasal Cannula 2.0 10/22/16 20:00 36.7 98 20 136/76 99 Nasal Cannula 2.0 10/22/16 17:15 108 24 148/65 100 10/22/16 17:00 99 20 134/64 99 10/22/16 17:00 100 Nasal Cannula 4.0 10/22/16 16:45 95 20 134/56 99 10/22/16 16:45 99 Nasal Cannula 4.0 10/22/16 16:35 36.6 90 18 125/82 99 4.0 10/22/16 16:25 98 24 134/69 97 Nasal Cannula 4 10/22/16 16:15 36.9 99 24 127/77 97 Nasal Cannula 4 10/22/16 16:05 96 24 128/68 97 Nasal Cannula 4 10/22/16 15:55 96 24 130/74 100 Mask 10 10/22/16 15:45 100 22 130/72 100 Mask 10 10/22/16 15:38 36.9 100 20 133/69 100 Mask 10 10/22/16 12:00 37.0 86 20 127/51 100 Nasal Cannula 2.0 10/22/16 12:00 96 Nasal Cannula 2.0 10/22/16 11:59 87 20 136/57 100 10/22/16 10:00 88 16 131/57 99 Nasal Cannula 2.0 10/22/16 09:59 88 16 148/63 99 10/22/16 08:00 37.1 91 22 145/61 99 Nasal Cannula 2.0 10/22/16 08:00 98 Nasal Cannula 2.0 10/22/16 08:00 Nasal Cannula Laboratory Results 24 Hours: Test 10/22/16 16:10 10/22/16 22:05 10/23/16 06:01 Hematocrit 26.0 % 26.3 % 25.9 % Hemoglobin 8.7 g/dL 8.8 g/dL 8.6 g/dL White Blood Count 13.28 K/uL Red Blood Count 2.90 M/uL Mean Corpuscular Volume 89.3 fL Mean Corpuscular Hemoglobin 29.7 pg Mean Corpuscular Hemoglobin Concent 33.2 g/dl Platelet Count 345 K/uL Mean Platelet Volume 9.8 fL Assessment & Plan Assessment: POD #1 s/p right BKA POD #2 s/p Left TKA I&D with intra-op cultures showing gram positive cocci, knee aspirate from 10/20 staph aur. -currently on empiric Abx Daptomycin/Cefepime/Flagyl -will need repeat I&D with poly exchange poss antibiotic beads, will discuss with dr bajwa, tentative plan for Thursday. -currently has prevena wound vac and hemovac drain Severe Sepsis with septic left knee Gangrene right distal foot with exposed metatarsal bones; Dr Botello recommends R LE BKA Right BKA scheduled for Dr Car to perform today. Consent on chart. DVT bilateral lower extremity, ivc filter placed by dr botello on 10/21/16 AFIB RVR : appreciate input form Cardiology ANEMIA : H/H today 7.5/22.5, received 2 units PRBCs yesterday TYPE 2 DM : holding oral meds insulin SSI /basal Lantus pharmacy consulted for glycemic control Plan: NPO after midnight tonight. D/C hemovac on right today. Will check with Dr. Bajwa' team about d/c of left hemovac or keep in place until tomorrow's procedure. Dr Bajwa for repeat I and D L knee with poly exchange vs explantation and anbx spacer. Inhouse Planning DVT Prophylaxis: TEDs, SCDs, Heparin Drip Discharge Planning Discharge Planning: uncertain
--- NOTE | 2016-10-23 08:21 | Critical Care Progress Note ---
Critical Care Progress Note Date of Service Oct 23, 2016. ICU Day ICU Day Number: [address] Lopez Subjective Patient is more alert this morning States that she is unsure if everything has "sunk in" yet pain is under good control would like to talk to her sister today questions and concerns were addressed Objective General: not in acute distress, resting in bed Skin: no rashes noted, no suspicious lesions, she does have irritated skin surrounding the perineum and intertrigo in the folds CVS: S1/ S2 noted, irregularly irregular with mild tachy, no rubs/ murmurs noted , no cyanosis RVS: Clear throughout bilaterally, not in acute respiratory distress, no wheezing/ rales/ crackles noted Neck: inspection WNL, full ROM of neck ABD: BSx4, no pain/ tenderness on palpation, no organomegaly MSK: right BKA noted, no bleeding around wound site, left knee has vac in and dressing in place NVS: alert and oriented today Lymph: No lymphadenopathy palpable Assessment & Plan 1. Sepsis secondary to infected left joint and possibly right foot - improving 2. A fibb with RVR/ MAT - rate controlled 3. s/p right toe amputation with poor wound healing, concerning for OM 4. Poorly controlled DMII 5. Anemia; undifferentiated 6. HTN 7. Hyperchol 8. PVD 9. hypokalemia 10. Bilat DVT and superficial thrombophlebitis 11. POD2 s/p left knee I&D 12. POD1 right BKA NVS - alert this morning - monitor for signs of delirium - dilaudid and norco for pain control CVS - continue PO diltiazem - echo * Small, underfilled LV chamber size with mild concentric LVH. * Hyperdynamic LV systolic function, EF >70%. * No segmental left ventricular wall motion abnormalities are noted. * Grade I diastolic dysfunction. * Aortic valve sclerosis moderate, without significant aortic valvular stenosis. * Moderate mitral annular calcifications. - consult cardio - appreciate input RVS - O2 per nursing protocol ID - continue cefepime, flagy 10/17 and stopped Dapto cont 10 days - consult ID - appreciate input - follow CBC - blood culture- x2 gram positive cocci repeat blood cultures - 1/2 pos staph cocci - repeat x 2 again - final culture from aspiration of knee- staph aureus - wound consult - ortho has been consulted - left knee I&D done and plan is to place antibiotic disc tomorrow - potential BKA 10/22/16 - nystatin powder for intertrigo HEME - reflective of anemia - will monitor CBC, has signed consent for transfusion - 2 units type and crossed, administered prior to first surgery - 1 unit prior to second surgery - 1 unit available and held - had to transfuse 2 unit of blood 10/21/16 for a hgb of 6.7 - continue to follow the CBC - fecal occult negative - bilat DVT - Heparin drip intermittent- hold at midnight - IVC filter placed GI - Dm diet - NPO after midnight - protonix IV daily RENAL - continue to monitor I&O - ellis is in FEN - replete K prn - continue to follow CMP ENDO - Dm educator - HBA1C 7.7 - Insulin novolog and bsg ac hs hemodynamically stable, could be ok for downgrade Resident Physician Supervision Note: Dr. Murrell was resident physician during care of patient. I separately evaluated patient and did history and exam. I discussed the case with the resident and generally agree with the findings and plan. Patient's blood cultures sterile positive for gram-positive cocci, MRSA, D escalated from broad-spectrum antibiotics yesterday. Repeat blood cultures today, patient nothing by mouth after midnight holding heparin after midnight as patient is on schedule for second stage of left knee surgery tomorrow at 7: 15 AM. Blood sugars within normal range, tolerating diet had bowel movement yesterday. If the patient is not clear repeat blood cultures she may benefit from a transesophageal echocardiogram. I have personally spent 30 minutes of critical care time in the direct management of this patient. Patient is critically ill due to persistent MRSA bacteremia. This includes time spent evaluating patient, direct bedside care, chart review, placing orders, interpretation of diagnostic studies, discussion with consultants, patient, and family members, as well as other required patient management activities. This time is exclusive of all separately billable procedures, and teaching time and separate from and in addition to any other critical care service time. Documented By: Abdirahman Lopez DO Data Medications: Current Inpatient Medications Medications (Trade) Dose Ordered Sig/Denisse Route Start Time Stop Time Status Last Admin Dose Admin Acetaminophen (Tylenol Tab) 650 mg Q4H PRN PO 10/19/16 22:00 11/18/16 21:59 Glucose (Glucose 40% Gel) 15-30 GRAMS 15 GRAMS... UD PRN PO 10/19/16 22:15 11/18/16 22:14 Glucose (Glucose Chew Tab) 4-8 Tablets 4 Tabl... UD PRN PO 10/19/16 22:15 11/18/16 22:14 Dextrose (Dextrose 50% 50ML Syringe) 25-50ML OF 50% DW IV FOR... UD PRN IV 10/19/16 22:15 11/18/16 22:14 Glucagon (Glucagon Inj) 1 mg UD PRN SQ 10/19/16 22:15 11/18/16 22:14 Ondansetron HCl (Zofran Inj) 4 mg Q4H PRN IV 10/19/16 22:45 11/18/16 22:44 Hydromorphone HCl (Dilaudid Inj) 0.2 mg Q4H PRN IV 10/19/16 22:45 11/02/16 22:44 10/23/16 03:57 0.2 MG Diltiazem HCl (Cardizem Cd Cap) 240 mg DAILY PO 10/20/16 09:00 11/19/16 08:59 Future hold 10/20/16 10:13 240 MG Acetaminophen/ Hydrocodone Bitart 1 tab 1 tab Q4H PRN PO 10/19/16 23:00 11/02/16 22:59 10/23/16 02:34 1 TAB Potassium Chloride/Sodium Chloride (Nss + 20meq KCl 1000ml) 1,000 ml @ 100 mls/hr Q10H IV 10/19/16 23:45 11/18/16 23:44 10/23/16 03:58 100 MLS/HR Miscellaneous Information (Consult Glycemic Management Pharmacy) 1 ea UD PRN N/A 10/20/16 15:55 11/19/16 15:54 Insulin Aspart SLIDING SCALE G... Q4 SC 10/21/16 00:00 11/19/16 06:59 10/23/16 03:58 1 UNITS Heparin Sodium/ Dextrose (Heparin 25,000 Unit/500ml D5W) 500 ml @ 18 mls/hr Q24H PRN IV 10/21/16 00:15 11/20/16 00:14 Future hold 10/23/16 00:45 17 MLS/HR Nystatin 1 appln BID EXT 10/21/16 21:00 11/20/16 20:59 10/22/16 21:15 1 APPLN Dexamethasone 3.75 mg/Nystatin 30 ml/ Diphenhydramine HCl 300 mg/ Sucrose 45 ml/ Microcrystalline Cellulose 45 ml/ Barcode 1 ea swish in mouth and spit ... BID PRN PO 10/21/16 11:15 11/20/16 11:14 10/22/16 11:13 5 ML Daptomycin 600 mg/ Sodium Chloride 62 ml @ 100 mls/hr DAILY@1200 IV 10/22/16 12:00 11/05/16 11:59 10/22/16 11:13 100 MLS/HR Pantoprazole Sodium/Syringe (Protonix Inj/ Syringe) 10 ml @ 5 mls/min DAILY@11 IV 10/22/16 11:00 11/21/16 10:59 10/22/16 11:09 5 MLS/MIN Insulin Glargine (Lantus Solostar Pen) 18 unit BID SC 10/22/16 21:00 11/21/16 20:59 10/22/16 21:19 18 UNIT I & O: 24-Hour Column 10/23/16 07:59 Intake Total 4474 ml Output Total 1745 ml Balance 2729 ml Vital Signs: Date Time Temp Pulse Resp B/P Pulse Ox O2 Delivery O2 Flow Rate FiO2 10/23/16 06:00 101 19 140/75 99 152/77 10/23/16 05:00 95 18 157/70 98 10/23/16 04:01 99 20 124/70 97 148/64 10/23/16 04:00 36.8 10/23/16 04:00 97 Nasal Cannula 2.0 10/23/16 03:00 100 24 176/75 98 10/23/16 02:01 92 26 141/76 99 171/68 10/23/16 01:00 102 21 163/69 98 10/23/16 00:01 99 22 134/78 97 169/69 10/23/16 00:01 37.1 10/23/16 00:00 93 21 171/71 97 10/22/16 23:59 97 Nasal Cannula 2.0 10/22/16 23:00 99 26 166/70 99 10/22/16 22:00 99 24 151/51 100 Nasal Cannula 2.0 10/22/16 20:00 Nasal Cannula 2.0 10/22/16 20:00 36.7 98 20 136/76 99 Nasal Cannula 2.0 10/22/16 17:15 108 24 148/65 100 10/22/16 17:00 99 20 134/64 99 10/22/16 17:00 100 Nasal Cannula 4.0 10/22/16 16:45 95 20 134/56 99 10/22/16 16:45 99 Nasal Cannula 4.0 10/22/16 16:35 36.6 90 18 125/82 99 4.0 10/22/16 16:25 98 24 134/69 97 Nasal Cannula 4 10/22/16 16:15 36.9 99 24 127/77 97 Nasal Cannula 4 10/22/16 16:05 96 24 128/68 97 Nasal Cannula 4 10/22/16 15:55 96 24 130/74 100 Mask 10 10/22/16 15:45 100 22 130/72 100 Mask 10 10/22/16 15:38 36.9 100 20 133/69 100 Mask 10 10/22/16 12:00 37.0 86 20 127/51 100 Nasal Cannula 2.0 10/22/16 12:00 96 Nasal Cannula 2.0 10/22/16 11:59 87 20 136/57 100 10/22/16 10:00 88 16 131/57 99 Nasal Cannula 2.0 10/22/16 09:59 88 16 148/63 99 Laboratory Results: Last 24 Hours Test 10/22/16 08:35 10/22/16 13:13 10/22/16 15:38 10/22/16 16:10 Bedside Glucose 177 mg/dl 193 mg/dl 198 mg/dl Hemoglobin 8.7 g/dL Hematocrit 26.0 % Test 10/22/16 16:43 10/22/16 21:10 10/22/16 22:05 10/22/16 23:45 Bedside Glucose 197 mg/dl 211 mg/dl 194 mg/dl Hemoglobin 8.8 g/dL Hematocrit 26.3 % Test 10/22/16 23:56 10/23/16 03:53 10/23/16 06:01 Activated Partial Thromboplast Time 48.8 SECONDS 46.2 SECONDS Partial Thromboplastin Ratio 1.9 1.8 Bedside Glucose 145 mg/dl White Blood Count 13.28 K/uL Red Blood Count 2.90 M/uL Hemoglobin 8.6 g/dL Hematocrit 25.9 % Mean Corpuscular Volume 89.3 fL Mean Corpuscular Hemoglobin 29.7 pg Mean Corpuscular Hemoglobin Concent 33.2 g/dl Platelet Count 345 K/uL Mean Platelet Volume 9.8 fL RDW Standard Deviation 52.3 fL RDW Coefficient of Variation 15.9 % Neutrophils % (Manual) 81.9 % Lymphocytes % (Manual) 6.0 % Monocytes % (Manual) 4.3 % Eosinophils % (Manual) 4.3 % Metamyelocytes % 2.6 % Myelocytes % 0.9 % Neutrophils # (Manual) 10.88 K/uL Total Absolute Neutrophils 10.88 K/uL Lymphocytes # (Manual) 0.80 K/uL Total Absolute Lymphocytes 0.80 K/uL Monocytes # (Manual) 0.57 K/uL Eosinophils # (Manual) 0.57 K/uL Metamyelocytes # 0.35 K/uL Myelocytes # 0.12 K/uL Toxic Granulation 1+ Large Platelets 1+ Anisocytosis PRESENT Sodium Level 136 mmol/L Potassium Level 4.2 mmol/L Chloride Level 105 mmol/L Carbon Dioxide Level 24 mmol/L Anion Gap 7.0 mmol/L Blood Urea Nitrogen 16 mg/dl Creatinine 0.45 mg/dl Est Creatinine Clear Calc Drug Dose 144.1 ml/min Estimated GFR () 120.2 Estimated GFR (Non- 103.7 BUN/Creatinine Ratio 35.3 Random Glucose 138 mg/dl Calcium Level 7.1 mg/dl Total Bilirubin 0.3 mg/dl Aspartate Amino Transf (AST/SGOT) 15 U/L Alanine Aminotransferase (ALT/SGPT) 12 U/L Alkaline Phosphatase 94 U/L Total Protein 5.4 gm/dl Albumin 1.1 gm/dl Globulin 4.3 gm/dl Albumin/Globulin Ratio 0.3
[2016-10-23] MEDS: NYSTATIN POWDER 15GM BTL EXT SCH ×2 (08:23→19:57)
[2016-10-23] MEDS: INSULIN GLARGINE SOLOSTAR 100 UNITS/ML 3 ML PEN SC SCH ×2 (08:41→20:04)
[2016-10-23] MEDS: DILTIAZEM HCL 240 MG CAPCR PO SCH (09:26)
[2016-10-23] MEDS ORDERED: FUROSEMIDE INJ 40 MG in SYRINGE 0 ML IV ONE (09:30)
[2016-10-23] MEDS ORDERED: FUROSEMIDE 40 MG/4 ML VIAL ONE (09:31)
--- NOTE | 2016-10-23 09:39 | PROGRESS NOTE ---
DATE: 10/23/2016 FOLLOWUP VISIT SUBJECTIVE: The patient is a 66-year-old female who presented with sepsis due to osteomyelitis of the right foot and a septic left knee. She has had a right BKA and left knee I\T\D. Earlier in her admission, she had some atrial fibrillation but has been in sinus with frequent PACs. She has no cardiac complaints today. OBJECTIVE: GENERAL: She is alert and oriented, in no acute distress. VITAL SIGNS: Blood pressure is 140/75, pulse is regular at 95 beats per minute. She is afebrile. HEENT: She is normocephalic. Pupils are equal and reactive to light. Extraocular muscles are intact bilaterally. NECK: The neck veins are flat. Carotids have good upstrokes bilaterally without bruits. Thyroid is nonpalpable. RESPIRATORY: Breath sounds equal bilaterally and clear to auscultation. CARDIOVASCULAR: Heart has a regular rhythm. Normal S1 and S2. No S3 or S4. No cardiac rubs or murmurs. GASTROINTESTINAL: Abdomen is soft, nontender, without organomegaly. EXTREMITIES: There is a right BKA and the left leg has had knee surgery. NEUROLOGIC: Grossly intact. SKIN: Warm to touch. LYMPH NODES: Negative to palpation. LABORATORY DATA: WBC count is 13, hemoglobin is 8.6. Creatinine is 0.45. Potassium is 4.2. IMPRESSION: 1. Sepsis. 2. Status post [id number] amputation due to osteomyelitis of the right foot as well as I\T\D of the left knee due to a septic joint. 3. Paroxysmal atrial fibrillation. RECOMMENDATIONS: At this point, I think I would continue conservative management of the patient's arrhythmias until she is completely recovered from her sepsis.
--- NOTE | 2016-10-23 11:05 | Infectious Disease Progress Nt ---
Progress Note Date of Service Oct 23, 2016. Subjective Pt evaluation today including: conversation w/ patient, physical exam, chart review, lab review, review of studies, conversation w/ [facility] consultant (Dr. Lopez , Dr. Murrell), review of inpatient medication list Surgical cultures growing MRSA. Initial blood cultures growing MRSA. Repeat blood culture growing GPC. I reviewed both operative notes for the right BKA and left knee I&D. Gross purulence was noted during I & D. Patient is currently on IV Daptomycin. WBC count was 13.28 this morning. B/L lower extremity Venous doppler showed DVT bilaterally. All Other Systems: Reviewed and Negative Medications Current Inpatient Medications Medications (Trade) Dose Ordered Sig/Denisse Route Start Time Stop Time Status Last Admin Dose Admin Acetaminophen (Tylenol Tab) 650 mg Q4H PRN PO 10/19/16 22:00 11/18/16 21:59 Glucose (Glucose 40% Gel) 15-30 GRAMS 15 GRAMS... UD PRN PO 10/19/16 22:15 11/18/16 22:14 Glucose (Glucose Chew Tab) 4-8 Tablets 4 Tabl... UD PRN PO 10/19/16 22:15 11/18/16 22:14 Dextrose (Dextrose 50% 50ML Syringe) 25-50ML OF 50% DW IV FOR... UD PRN IV 10/19/16 22:15 11/18/16 22:14 Glucagon (Glucagon Inj) 1 mg UD PRN SQ 10/19/16 22:15 11/18/16 22:14 Ondansetron HCl (Zofran Inj) 4 mg Q4H PRN IV 10/19/16 22:45 11/18/16 22:44 Hydromorphone HCl (Dilaudid Inj) 0.2 mg Q4H PRN IV 10/19/16 22:45 11/02/16 22:44 10/23/16 03:57 0.2 MG Diltiazem HCl (Cardizem Cd Cap) 240 mg DAILY PO 10/20/16 09:00 11/19/16 08:59 Future hold 10/23/16 09:26 240 MG Acetaminophen/ Hydrocodone Bitart 1 tab 1 tab Q4H PRN PO 10/19/16 23:00 11/02/16 22:59 10/23/16 09:42 1 TAB Potassium Chloride/Sodium Chloride (Nss + 20meq KCl 1000ml) 1,000 ml @ 100 mls/hr Q10H IV 10/19/16 23:45 11/18/16 23:44 10/23/16 03:58 100 MLS/HR Miscellaneous Information (Consult Glycemic Management Pharmacy) 1 ea UD PRN N/A 10/20/16 15:55 11/19/16 15:54 Insulin Aspart SLIDING SCALE G... Q4 SC 10/21/16 00:00 11/19/16 06:59 10/23/16 08:35 2 UNITS Heparin Sodium/ Dextrose (Heparin 25,000 Unit/500ml D5W) 500 ml @ 18 mls/hr Q24H PRN IV 10/21/16 00:15 11/20/16 00:14 Future Hold 10/23/16 00:45 17 MLS/HR Nystatin 1 appln BID EXT 10/21/16 21:00 11/20/16 20:59 10/23/16 08:23 1 APPLN Dexamethasone 3.75 mg/Nystatin 30 ml/ Diphenhydramine HCl 300 mg/ Sucrose 45 ml/ Microcrystalline Cellulose 45 ml/ Barcode 1 ea swish in mouth and spit ... BID PRN PO 10/21/16 11:15 11/20/16 11:14 10/22/16 11:13 5 ML Daptomycin 600 mg/ Sodium Chloride 62 ml @ 100 mls/hr DAILY@1200 IV 10/22/16 12:00 11/05/16 11:59 10/22/16 11:13 100 MLS/HR Pantoprazole Sodium/Syringe (Protonix Inj/ Syringe) 10 ml @ 5 mls/min DAILY@11 IV 10/22/16 11:00 11/21/16 10:59 10/22/16 11:09 5 MLS/MIN Insulin Glargine (Lantus Solostar Pen) 18 unit BID SC 10/22/16 21:00 11/21/16 20:59 10/23/16 08:41 18 UNIT Miscellaneous (Stop Order) 1 ea TODAY@0000 ONCE N/A 10/24/16 00:00 10/24/16 00:01 Objective Vital Signs Date Time Temp Pulse Resp B/P Pulse Ox O2 Delivery O2 Flow Rate FiO2 10/23/16 08:00 36.7 97 26 151/60 99 Nasal Cannula 2.0 10/23/16 08:00 99 Nasal Cannula 2.0 10/23/16 06:00 101 19 140/75 99 152/77 10/23/16 05:00 95 18 157/70 98 10/23/16 04:01 99 20 124/70 97 148/64 10/23/16 04:00 36.8 10/23/16 04:00 97 Nasal Cannula 2.0 10/23/16 03:00 100 24 176/75 98 10/23/16 02:01 92 26 141/76 99 171/68 10/23/16 01:00 102 21 163/69 98 10/23/16 00:01 99 22 134/78 97 169/69 10/23/16 00:01 37.1 10/23/16 00:00 93 21 171/71 97 10/22/16 23:59 97 Nasal Cannula 2.0 10/22/16 23:00 99 26 166/70 99 10/22/16 22:00 99 24 151/51 100 Nasal Cannula 2.0 10/22/16 20:00 Nasal Cannula 2.0 10/22/16 20:00 36.7 98 20 136/76 99 Nasal Cannula 2.0 10/22/16 17:15 108 24 148/65 100 10/22/16 17:00 99 20 134/64 99 10/22/16 17:00 100 Nasal Cannula 4.0 10/22/16 16:45 95 20 134/56 99 10/22/16 16:45 99 Nasal Cannula 4.0 10/22/16 16:35 36.6 90 18 125/82 99 4.0 10/22/16 16:25 98 24 134/69 97 Nasal Cannula 4 10/22/16 16:15 36.9 99 24 127/77 97 Nasal Cannula 4 10/22/16 16:05 96 24 128/68 97 Nasal Cannula 4 10/22/16 15:55 96 24 130/74 100 Mask 10 10/22/16 15:45 100 22 130/72 100 Mask 10 10/22/16 15:38 36.9 100 20 133/69 100 Mask 10 10/22/16 12:00 37.0 86 20 127/51 100 Nasal Cannula 2.0 10/22/16 12:00 96 Nasal Cannula 2.0 10/22/16 11:59 87 20 136/57 100 Physical Exam General Appearance: no apparent distress, + obese Eyes: normal inspection, sclerae normal ENT: hearing grossly normal Neck: supple, trachea midline Respiratory/Chest: chest non-tender, normal breath sounds, no respiratory distress, no accessory muscle use Cardiovascular: + irregularly irregular Abdomen: normal bowel sounds Extremities: + pertinent finding (right BKA with dressing in place. Left leg with large full leg dressing- c/d/i) Neurologic/Psychiatric: alert Skin: warm/dry, no rash Laboratory Results RUN DATE: 10/22/16 [facility] LAB PAGE 1 RUN TIME: 0832 Specimen Inquiry PATIENT: [facility]ANA [facility] : [id number] AGE/SX: 66/F ROOM: E108 REG : 10/19/[address]: Prasanna Car D.O. : 1950 BED: 1 DIS : STATUS: ADM IN TLOC: SPEC #: [id number] GILBERTO: 10/20/16 STATUS: RES REQ #: [id number] RECD: 10/20/[address] [facility] [address]: Christ Newton PA-C SOURCE: [facility] ENTR: 10/20/16 [facility] DR: Prasanna Car D.OTobias SPDESC: KNEE LEFT Elías Krueger MD, Manabendra, M.D. Heaton, Fred M. D.O. Sumner, Sabrina M. , DO ORDERED: AER/LESTER CULTSMR COMMENTS: Has Specimen Been Obtained/Collected? Y SPECIMEN SENT THROUGH TUBE SYSTEM AND MOST OF SPECIMEN LEAKED INTO BAG./ 0854 Procedure Result Verified Site GRAM STAIN Final 10/20/16-105 RESULT MANY WBCs SEEN MANY GRAM POSITIVE COCCI OR AER/LESTER CULT Preliminary 10/22/16 Organism 1 STAPHYLOCOCCUS AUREUS QUANITY MANY SENS SENSITIVITY TO FOLLOW SENSITIVITY RESULT INDICATES A METHICILLIN RESISTANT STAPH. AUREUS. PHONED TO BARBARA ARCE ON 10/22/16 AT 0831 BY Amber Hackett. Results were verbalized back to RESULTS WERE ALSO CALLED TO [facility] CONTROL ANSWERING MACHINE ON 10/22/16 BY DRUCBR. 1. STAPHYLOCOCCUS AUREUS Target Route Dose RX AB Cost M.I.C. IQ ------ ----- ------ -- ------ -------- - ------ TRIMET/SULFA S <=0.5/ 9.5 * OXACILLIN R * >2 VANCOMYCIN S 2 ERYTHROMYCIN R >4 TETRACYCLINE S <=4 CLINDAMYCIN S <=0.5 DAPTOMYCIN S 1 RIFAMPIN I 2 S = SENSITIVE I = INTERMEDIATE R = RESISTANT Item Value Date Time Blood Culture Received 10/23/16 0947 Blood Pending Blood Culture - Preliminary Resulted 10/21/16 1439 Blood Gram Positive Cocci Blood Culture - Preliminary Resulted 10/21/16 1422 Blood NO GROWTH TO DATE. Gram Stain - Final Resulted 10/21/16 1230 Joint Fluid/Space (Synovial) Knee Left Blood Culture - Final Complete 10/20/16 1105 Blood Staphylococcus Aureus Blood Culture - Final Complete 10/20/16 1050 Blood Staphylococcus Aureus Gram Stain - Final Resulted 10/20/16 0825 Joint Fluid/Space (Synovial) Knee Left Gram Stain - Final Complete 10/20/16 0000 Ulcer Foot Right MRSA DNA Surveillance Screen - Final Complete 10/20/16 0000 Nasal Specimen Positive for MRSA by DNA Probe Last 24 Hours Test 10/22/16 13:13 10/22/16 15:38 10/22/16 16:10 10/22/16 16:43 Bedside Glucose 193 mg/dl 198 mg/dl 197 mg/dl Hemoglobin 8.7 g/dL Hematocrit 26.0 % Test 10/22/16 21:10 10/22/16 22:05 10/22/16 23:45 10/22/16 23:56 Bedside Glucose 211 mg/dl 194 mg/dl Hemoglobin 8.8 g/dL Hematocrit 26.3 % Activated Partial Thromboplast Time 48.8 SECONDS Partial Thromboplastin Ratio 1.9 Test 10/23/16 03:53 10/23/16 06:01 10/23/16 08:24 Bedside Glucose 145 mg/dl 175 mg/dl White Blood Count 13.28 K/uL Red Blood Count 2.90 M/uL Hemoglobin 8.6 g/dL Hematocrit 25.9 % Mean Corpuscular Volume 89.3 fL Mean Corpuscular Hemoglobin 29.7 pg Mean Corpuscular Hemoglobin Concent 33.2 g/dl Platelet Count 345 K/uL Mean Platelet Volume 9.8 fL RDW Standard Deviation 52.3 fL RDW Coefficient of Variation 15.9 % Neutrophils % (Manual) 81.9 % Lymphocytes % (Manual) 6.0 % Monocytes % (Manual) 4.3 % Eosinophils % (Manual) 4.3 % Metamyelocytes % 2.6 % Myelocytes % 0.9 % Neutrophils # (Manual) 10.88 K/uL Total Absolute Neutrophils 10.88 K/uL Lymphocytes # (Manual) 0.80 K/uL Total Absolute Lymphocytes 0.80 K/uL Monocytes # (Manual) 0.57 K/uL Eosinophils # (Manual) 0.57 K/uL Metamyelocytes # 0.35 K/uL Myelocytes # 0.12 K/uL Toxic Granulation 1+ Large Platelets 1+ Anisocytosis PRESENT Activated Partial Thromboplast Time 46.2 SECONDS Partial Thromboplastin Ratio 1.8 Sodium Level 136 mmol/L Potassium Level 4.2 mmol/L Chloride Level 105 mmol/L Carbon Dioxide Level 24 mmol/L Anion Gap 7.0 mmol/L Blood Urea Nitrogen 16 mg/dl Creatinine 0.45 mg/dl Est Creatinine Clear Calc Drug Dose 144.1 ml/min Estimated GFR () 120.2 Estimated GFR (Non- 103.7 BUN/Creatinine Ratio 35.3 Random Glucose 138 mg/dl Calcium Level 7.1 mg/dl Total Bilirubin 0.3 mg/dl Aspartate Amino Transf (AST/SGOT) 15 U/L Alanine Aminotransferase (ALT/SGPT) 12 U/L Alkaline Phosphatase 94 U/L Total Protein 5.4 gm/dl Albumin 1.1 gm/dl Globulin 4.3 gm/dl Albumin/Globulin Ratio 0.3 Assessment and Plan Diabetic female with left septic TKA- now s/p I & D, wound infection of the right lower extremity- now s/p right BKA, and MRSA bacteremia. Echocardiogram showed no evidence of vegetation on TTE. She was on Daptomycin, Cefepime and Flagyl. I D/C'd Flagyl and Cefepime yesterday. She continues on Daptomycin. Will repeat blood cultures. She will need extended antibiotic therapy. She is anticipating a repeat I & D tomorrow of the left knee. She does also have a triple lumen catheter in currently. If she does not clear her blood cultures, this will need removed. PICC line should not be placed until blood cultures clear. We will follow. Case reviewed and agree with above assessment. continue with daily blood cultures until clear, will need new line as she remains bacteremic. continue dapto.
--- NOTE | 2016-10-23 11:44 | Pharmacy Progress Note ---
Glycemic Control: Progress Nt Date of Service Oct 23, 2016. Scope Glycemic Pharmacist consulted by Dr Betancourt on 10/20/16 for glycemic control and to write orders per [facility] inpatient glycemic control protocol. Objective Accuchecks BSG (last 24hrs): Test 10/22/16 13:13 10/22/16 15:38 10/22/16 16:43 10/22/16 21:10 Bedside Glucose 193 mg/dl (70-90) 198 mg/dl (70-90) 197 mg/dl (70-90) 211 mg/dl (70-90) Test 10/22/16 23:45 10/23/16 03:53 10/23/16 06:01 10/23/16 08:24 Bedside Glucose 194 mg/dl (70-90) 145 mg/dl (70-90) 175 mg/dl (70-90) Random Glucose 138 mg/dl (70-99) Laboratory Data (last 24hrs) Test 10/23/16 06:01 Anion Gap 7.0 mmol/L BUN/Creatinine Ratio 35.3 Blood Urea Nitrogen 16 mg/dl Creatinine 0.45 mg/dl Potassium Level 4.2 mmol/L Sodium Level 136 mmol/L White Blood Count 13.28 K/uL Red Blood Count 2.90 M/uL Hemoglobin 8.6 g/dL Hematocrit 25.9 % Mean Corpuscular Volume 89.3 fL Mean Corpuscular Hemoglobin 29.7 pg Mean Corpuscular Hemoglobin Concent 33.2 g/dl Platelet Count 345 K/uL Mean Platelet Volume 9.8 fL HbA1c: Test 10/20/16 05:45 Hemoglobin A1c 7.7 % (4.5-5.6) H Recent Pertinent Medications Outpatient Anti-diabetic Regimen: * Lantus 18 units SQ BID * Novolog ACHS per sliding scale: < 150 0 units, 150-200 4 units; 201-250 8 units; 251-300 10 units; etc... * Glipizide XL 10mg PO daily * A1c = 7.7 % 10/20/16 The patient is currently receiving: * Basal insulin: Lantus 18 units SQ BID; give 1/2 dose (9units) if BSG less than 110 * Correctional Insulin: Novolog Correction per scale Q 4 hours Goal Range: Low 110 mg/dL - High 140 mg/dL Correction Factor: 20 mg/dL/unit * Prandial insulin: Per carb ratio of 1 unit per 8 grams CHO consumed * Oral Agents: None currently Risk Factors for Insulin Resistance: * Infection: R foot osteomyelitis, septic L TKA, bacteremia; all cultures growing MRSA; currently receiving Daptomycin (6mg/kg) * IVF: Heparin gtt mixed in D5W * Recent Surgery: POD # 2 s/p IVC placement and I+D of L TKA; POD # 1 s/p R BKA * Diet: ordered T2DM diet this AM however patient only ate a few bites of breakfast, stating she doesn't feel like eating Assessment & Plan ASSESSMENT: 10/21/16 * Glycemic control has improved since insulin adjustments made yesterday * BSGs running 203-230 this AM * Pattern still suggests basal insulin deficiency, which was the problem yesterday as well. She did received 18 units of Lantus last PM - her usual home dosage. Fasting BSGs are improved this AM but she has required 7 units of Novolog correction overnight. She is NPO for surgery today. She received 1/2 her usual Lantus dose this AM (9 units). This is a reasonable starting point given NPO status. * Will increase correctional insulin dose should the basal insulin dose not be adequate for current stressors. * Will resume home Lantus dose this PM with 1/2 dose parameter added to lessen risk of hypoglycemia if patient not eating well post-op * OR planned today, will need to review meds used in OR to determine if dexamethasone used as this will greatly influence treatment plan 10/22/16 * Glycemic control continues to improve; last 6 BSGs 177-194 - acceptable for ICU / critically ill patient * It does not appear that this patient received steroids in the OR yesterday; will need to review chart later today to determine if steroids were given w/ today's procedure * Patient's PO intake has been poor over the last 2 days, small meal consumed at bedtime last evening, otherwise she has been NPO * Will give slightly reduced dose Lantus this AM due to continue NPO status * Overall she has been requiring ~50 units of insulin per day while NPO. BSGs are starting to trend down. 10/23/16 * Glycemic control has been acceptable overall, some BSGs mildly elevated yesterday, however this was axel-op and pt did not receive correctional insulin doses. This AM, however, BSGs are back to goal. * Plan is to continue current basal insulin doses as the BSGs over the last 2 days are more reflective of a fasting state, and during this fasting state he is requiring ~45-50 units / day. * Would not hold AM Lantus for surgery based upon current data * Novolog CF and CR will be tested today if patient able to eat; will follow post-prandial BSG trend PLAN FOR INPATIENT GLYCEMIC CONTROL: * Continue Lantus 18 units SQ BID; give 1/2 dose (9 units) if BSG less than 110 * Continue correction factor of 20 mg/dl/unit * Continuing ratio of 1 unit per 8 grams CHO consumed * Continuing goal range of Low 110 mg/dL - High 140 mg/dL as this has allowed for additional using of correction * Convert BSG checks to ACHS * Please note that the plan above was derived based on current level of insulin resistance and hospital stress. These recommendations are appropriate for inpatient admission only. Plan of care upon discharge will need to be reassessed to avoid potential outpatient hypo/hyperglycemia. Thank you.
[2016-10-23] MEDS: DAPTOmycin IV 600 MG in SODIUM CHLORIDE 0.9% 50ML 50 ML IV SCH (11:49)
[2016-10-23] MEDS: PANTOprazole INJ 40 MG in SYRINGE 0 ML IV SCH (11:49)
[2016-10-23 14:19] LABS: HEMATOCRIT 28.1 % (37-47)
--- NOTE | 2016-10-23 17:04 | Progress Note ---
Internal Med Progress Note Date of Service: Oct 23, 2016. Provider Documentation: SUBJECTIVE: s/p right bka yesterday denies pain afebrile not eating much denies chest pain or sob OBJECTIVE: Vital Signs-as noted below Exam: General-alert and oriented. Not in distress ENT-normal hearing Neck-no neck masses Lungs-cta b/l no wheezing no crackles Heart-s1 and s2 heard, regular rate and rhythm no murmurs Abdomen-soft bowel sounds present non tender no distension Extremities-s/p right bka Neuro-alert and awake moves extremities Lab data as noted below. ASSESSMENT & PLAN: SEVERE SEPSIS due to infected /septic left knee on empiric abx with Daptomycin /Cefepime /Flagyl ID eval appreciated wound culture /blood culture ordered Orthopedics on board pt had left total knee replacement done in 04/2000 s/p I and D of left TKA cx mrsa from I and D.and blood cx mrsa hemodynamics stable currently. currently only on daptomycin await repeat cx duration of abx as per ID DVT bilateral lower extremity s/p ivc filter by vascular surgery AFIB RVR : appreciate input form Cardiology currently on po Cardizem and iv heparin rates under control ANEMIA : hb 7.4 form 8.6 possible due to severe sepsis hb 6.7 10/21/16 no obvious signs of bleeding s/p two units transfused hb 8.5 post transfusion 10/22/15 hb 7.5 10/23/16 and s/p one more unit transfused hb 9.3 today HYPOTENSION : due to severe sepsis given IV fluid bolus improved cont to monitor in ICU Recent Right foot toe amputations. hx of PVD s/p 2nd , 3rd and 4 th toe amputation with open wound , exposing bone wound care consulted iv abx as above vascular surgery recommends right BKA and s/p BKA on 10/22/16 TYPE 2 DM : holding oral meds pt is NPO severe sepsis insulin SSI /basal Lantus pharmacy consulted for glycemic control will monitor FULL CODE DVT PROPHYLAXIS scds DISPOSITION transfer to [facility]? Vital Signs: Date Time Temp Pulse Resp B/P Pulse Ox O2 Delivery O2 Flow Rate FiO2 10/23/16 16:00 36.8 101 26 137/66 97 Nasal Cannula 2.0 10/23/16 16:00 97 Nasal Cannula 2.0 10/23/16 14:00 108 26 123/66 96 Nasal Cannula 2.0 10/23/16 12:00 36.8 92 20 117/67 97 Nasal Cannula 2.0 10/23/16 12:00 97 Nasal Cannula 2.0 10/23/16 10:00 93 16 125/67 99 Nasal Cannula 2.0 10/23/16 08:00 36.7 97 26 151/60 99 Nasal Cannula 2.0 10/23/16 08:00 99 Nasal Cannula 2.0 10/23/16 06:00 101 19 140/75 99 152/77 10/23/16 05:00 95 18 157/70 98 10/23/16 04:01 99 20 124/70 97 148/64 10/23/16 04:00 36.8 10/23/16 04:00 97 Nasal Cannula 2.0 10/23/16 03:00 100 24 176/75 98 10/23/16 02:01 92 26 141/76 99 171/68 10/23/16 01:00 102 21 163/69 98 10/23/16 00:01 99 22 134/78 97 169/69 10/23/16 00:01 37.1 10/23/16 00:00 93 21 171/71 97 10/22/16 23:59 97 Nasal Cannula 2.0 10/22/16 23:00 99 26 166/70 99 10/22/16 22:00 99 24 151/51 100 Nasal Cannula 2.0 10/22/16 20:00 Nasal Cannula 2.0 10/22/16 20:00 36.7 98 20 136/76 99 Nasal Cannula 2.0 10/22/16 17:15 108 24 148/65 100 Lab Results: Results Past 24 Hours Test 10/22/16 21:10 10/22/16 22:05 10/22/16 23:45 10/22/16 23:56 Range/Units Bedside Glucose 211 194 70-90 mg/dl Hemoglobin 8.8 12.0-16.0 g/dL Hematocrit 26.3 37-47 % Activated Partial Thromboplast Time 48.8 21.0-31.0 SECONDS Partial Thromboplastin Ratio 1.9 Test 10/23/16 03:53 10/23/16 06:01 10/23/16 08:24 10/23/16 11:41 Range/Units Bedside Glucose 145 175 152 70-90 mg/dl White Blood Count 13.28 4.8-10.8 K/uL Red Blood Count 2.90 4.2-5.4 M/uL Hemoglobin 8.6 12.0-16.0 g/dL Hematocrit 25.9 37-47 % Mean Corpuscular Volume 89.3 80-100 fL Mean Corpuscular Hemoglobin 29.7 25-34 pg Mean Corpuscular Hemoglobin Concent 33.2 32-36 g/dl Platelet Count 345 130-400 K/uL Mean Platelet Volume 9.8 7.4-10.4 fL RDW Standard Deviation 52.3 36.4-46.3 fL RDW Coefficient of Variation 15.9 11.5-14.5 % Neutrophils % (Manual) 81.9 % Lymphocytes % (Manual) 6.0 % Monocytes % (Manual) 4.3 % Eosinophils % (Manual) 4.3 % Metamyelocytes % 2.6 % Myelocytes % 0.9 % Neutrophils # (Manual) 10.88 1.4-6.5 K/uL Total Absolute Neutrophils 10.88 1.4-6.5 K/uL Lymphocytes # (Manual) 0.80 1.2-3.4 K/uL Total Absolute Lymphocytes 0.80 1.2-3.4 K/uL Monocytes # (Manual) 0.57 0.11-0.59 K/uL Eosinophils # (Manual) 0.57 0-0.5 K/uL Metamyelocytes # 0.35 0-0 K/uL Myelocytes # 0.12 0-0 K/uL Toxic Granulation 1+ Large Platelets 1+ Anisocytosis PRESENT Activated Partial Thromboplast Time 46.2 21.0-31.0 SECONDS Partial Thromboplastin Ratio 1.8 Sodium Level 136 136-145 mmol/L Potassium Level 4.2 3.5-5.1 mmol/L Chloride Level 105 98-107 mmol/L Carbon Dioxide Level 24 21-32 mmol/L Anion Gap 7.0 3-11 mmol/L Blood Urea Nitrogen 16 7-18 mg/dl Creatinine 0.45 0.60-1.20 mg/dl Est Creatinine Clear Calc Drug Dose 144.1 ml/min Estimated GFR () 120.2 Estimated GFR (Non- 103.7 BUN/Creatinine Ratio 35.3 10-20 Random Glucose 138 70-99 mg/dl Calcium Level 7.1 8.5-10.1 mg/dl Total Bilirubin 0.3 0.2-1 mg/dl Aspartate Amino Transf (AST/SGOT) 15 15-37 U/L Alanine Aminotransferase (ALT/SGPT) 12 12-78 U/L Alkaline Phosphatase 94 45-117 U/L Total Protein 5.4 6.4-8.2 gm/dl Albumin 1.1 3.4-5.0 gm/dl Globulin 4.3 2.5-4.0 gm/dl Albumin/Globulin Ratio 0.3 0.9-2 Test 10/23/16 14:05 10/23/16 16:03 Range/Units Hemoglobin 9.3 12.0-16.0 g/dL Hematocrit 28.1 37-47 % Activated Partial Thromboplast Time 52.4 21.0-31.0 SECONDS Partial Thromboplastin Ratio 2.0 Bedside Glucose 162 70-90 mg/dl Microbiology Results 10/23/16 Blood Culture, Received Pending 10/23/16 Blood Culture, Received Pending
--- NOTE | 2016-10-23 17:26 | Anesthesiology Progress Note ---
Anesthesia Progress Note Date of Service Oct 23, 2016. Progress Notes This is a 66 y/o w female,obese,IDDM,HTN,Hyperlipidemia,AFib,Anemia,GERD,and PVD w/infected Left TKA for I & D and poly exchange.Discussed anesthesia w/pt, risks vs benefits ,all questions answered.Informed consent obtained.
[2016-10-23 22:48] LABS: HEMATOCRIT 25.3 % (37-47)
[2016-10-24] VITALS (10 sets, daily range): BP systolic 124–152; BP diastolic 74–84; PULSE 76–95; TEMP 36.5–37.1; O2SAT 96–100
[2016-10-24] MEDS ORDERED: [UNRECOGNIZED DRUG - REMARK] ONE
[2016-10-24] MEDS: NSS + 20MEQ KCL 1000ML 1,000 ML IV SCH (00:05)
[2016-10-24 05:57] LABS: HEMATOCRIT 25.1 % (37-47); MEAN CELL VOLUME 88.4 fL (80-100); MEAN CORPUSCULAR HEMOGLOBIN 29.6 pg (25-34); MEAN PLATELET VOLUME 9.7 fL (7.4-10.4); PLATELET COUNT 413 K/uL (130-400); RED BLOOD COUNT 2.84 M/uL (4.2-5.4); WHITE BLOOD COUNT 16.47 K/uL (4.8-10.8)
[2016-10-24 05:58] LABS: MEAN CORPUSCULAR HGB CONC 33.5 g/dl (32-36)
[2016-10-24 06:10] LABS: PARTIAL THROMBOPLASTIN RATIO 1.6
[2016-10-24 06:21] LABS: BUN/CREATININE RATIO 24.4 (10-20); CALCIUM 6.8 mg/dl (8.5-10.1); CREATININE 0.44 mg/dl (0.60-1.20); POTASSIUM 4.2 mmol/L (3.5-5.1)
[2016-10-24] MEDS: INSULIN ASPART 100 UNITS/ML 3 ML PEN SC SCH ×4 (06:37→21:22)
[2016-10-24] MEDS ORDERED: MIDAZOLAM HCL 1 MG/ML 2ML VIAL ONE (06:42)
[2016-10-24] MEDS ORDERED: FENTANYL CITRATE INJ 50 MCG/1 ML 2 ML VIAL ONE ×3 (06:42→09:52)
[2016-10-24] MEDS ORDERED: VANCOMYCIN HCL 1000MG/20ML VIAL ONE (07:02)
[2016-10-24] MEDS ORDERED: POVIDONE-IODINE OP SOLN 30 ML BTL ONE (07:02)
[2016-10-24] MEDS ORDERED: BACITRACIN 50000 UNIT VIAL ONE ×2 (07:02→07:32)
[2016-10-24] MEDS ORDERED: ONDANSETRON INJ 2 MG/ML 2 ML VIAL ONE (07:46)
[2016-10-24] MEDS ORDERED: ROCURONIUM BROMIDE 10 MG/ML 5 ML VIAL ONE (07:46)
[2016-10-24] MEDS ORDERED: GLYCOPYRROLATE INJ 0.2 MG/ML VIAL ONE (07:46)
[2016-10-24] MEDS ORDERED: NEOSTIGMINE METHYLSULFATE 5 MG/5 ML SYR ONE (07:46)
[2016-10-24] MEDS ORDERED: PROPOFOL IV EMULSION 10 MG/ML 20 ML VIAL IV ONE (07:46)
[2016-10-24] MEDS ORDERED: LIDOCAINE HCL 2% 2 ML VIAL (20MG/ML) ONE (07:46)
[2016-10-24] MEDS ORDERED: HYDROmorphone INJ 2 MG/ML SYR/VIAL IV PRN (08:00)
[2016-10-24] MEDS ORDERED: ATROPINE SULFATE 0.1 MG/ML 5ML SYR IV PRN (08:00)
[2016-10-24] MEDS ORDERED: EpHEDrine SULFATE INJ 50 MG/ML AMP IV PRN (08:00)
[2016-10-24] MEDS ORDERED: PHENYLEPHRINE 100MCG/ML 5ML SYR IV PRN (08:00)
[2016-10-24] MEDS ORDERED: ONDANSETRON INJ 2 MG/ML 2 ML VIAL IV PRN (08:00)
[2016-10-24] MEDS ORDERED: SODIUM CHL BACTERIOSTATIC 0.9% INJ 30 ML VIAL ONE (08:03)
[2016-10-24] MEDS: NYSTATIN POWDER 15GM BTL EXT SCH ×2 (09:00→21:19)
[2016-10-24] MEDS ORDERED: DAPTOMYCIN IV ONE (09:25)
[2016-10-24] MEDS ORDERED: CALCIUM CHLORIDE 10% 10 ML SYR ONE (09:38)
--- NOTE | 2016-10-24 09:42 | [facility] Post Operative Brief Note ---
Immediate Operative Summary Operative Date Oct 24, 2016. Pre-Operative Diagnosis Septic left knee status post left total knee arthroplasty Post-Operative Diagnosis Septic left knee status post left total knee arthroplasty Procedure(s) Performed Left Knee Incision and Drainage; Poly Exchange, Application of Stimulan Beads Surgeon Dr. Ibarra [employer] Tr[employer] Surgeon(s) Zander Springer PA-C Estimated Blood Loss 20 ML Findings infected tka Specimens A: Left Knee Explanted Hardware Complication(s) None Disposition Recovery Room / PACU
--- NOTE | 2016-10-24 09:44 | Critical Care Progress Note ---
Critical Care Progress Note Date of Service Oct 24, 2016. ICU Day ICU Day Number: [address] Lopez Subjective Patient looks well this morning, anticipating surgery she has been NPO She denies any chest pain or SOB, her LE pain is under good control according to the patient ROS of 10 systems negative aside from above Objective General: not in acute distress, resting in bed Skin: no rashes noted, no suspicious lesions, she does have irritated skin surrounding the perineum and intertrigo in the folds CVS: S1/ S2 noted,RRR,, no rubs/ murmurs noted, no cyanosis RVS: Clear throughout bilaterally, not in acute respiratory distress, no wheezing/ rales/ crackles noted Neck: inspection WNL, full ROM of neck ABD: BSx4, no pain/ tenderness on palpation, no organomegaly MSK: right BKA noted, no bleeding around incision site, left knee has vac in and dressing in place, pulses palpable on left LE NVS: alert and oriented today Lymph: No lymphadenopathy palpable Assessment & Plan 1. Sepsis secondary to infected left joint and possibly right foot - Bacteremia ongoing - source of staph most likely right LE and seeded to left knee 2. A fibb with RVR/ MAT - rate controlled 3. s/p right toe amputation with poor wound healing, concerning for OM 4. Poorly controlled DMII 5. Anemia; undifferentiated 6. HTN 7. Hyperchol 8. PVD 9. hypokalemia 10. Bilat DVT and superficial thrombophlebitis 11. POD0 s/p left knee I&D- completion 12. POD2 right BKA NVS - alert this morning - monitor for signs of delirium - dilaudid and norco for pain control CVS - continue PO diltiazem - echo * Small, underfilled LV chamber size with mild concentric LVH. * Hyperdynamic LV systolic function, EF >70%. * No segmental left ventricular wall motion abnormalities are noted. * Grade I diastolic dysfunction. * Aortic valve sclerosis moderate, without significant aortic valvular stenosis. * Moderate mitral annular calcifications. - consult cardio - appreciate input RVS - O2 per nursing protocol ID - continue cefepime, flagy 10/17 and stopped Dapto cont 10 days - consult ID - appreciate input - follow CBC - blood culture- x2 gram positive cocci repeat blood cultures - 2/2 pos staph cocci - repeat x 2 again - if this remains positive, consider RUBI to assess for vegetations - final culture from aspiration of knee- staph aureus - wound consult - ortho has been consulted - left knee I&D done and plan is to place antibiotic disc tomorrow - potential BKA 10/22/16 - nystatin powder for intertrigo HEME - reflective of anemia - will monitor CBC, has signed consent for transfusion - 2 units type and crossed, administered prior to first surgery - 1 unit prior to second surgery - had to transfuse 2 unit of blood 10/21/16 for a hgb of 6.7 - continue to follow the CBC - fecal occult negative - bilat DVT - Heparin drip intermittent - IVC filter placed GI - Dm diet - protonix IV daily RENAL - continue to monitor I&O - ellis is in FEN - replete K prn - continue to follow CMP ENDO - Dm educator - HBA1C 7.7 - Insulin novolog and bsg ac hs hemodynamically stable, could be ok for downgrade Resident Physician Supervision Note: Dr. Murrell was resident physician during care of patient. I separately evaluated patient and did history and exam. I discussed the case with the resident and generally agree with the findings and plan. Major issue today after operating room is persistent bacteremia. Will order repeat blood cultures and transesophageal echocardiogram. Continue central line until blood cultures are clear and then will require PICC line for continued IV antibiotics. Stable for downgraded today Documented By: Abdirahman Lopez DO Consults & Procedures Consultants: Dr Ibarra, Dr Car, Dr Botello Procedures: BKA, left knee I&D Data Medications: Current Inpatient Medications Medications (Trade) Dose Ordered Sig/Denisse Route Start Time Stop Time Status Last Admin Dose Admin Acetaminophen (Tylenol Tab) 650 mg Q4H PRN PO 10/19/16 22:00 11/18/16 21:59 Glucose (Glucose 40% Gel) 15-30 GRAMS 15 GRAMS... UD PRN PO 10/19/16 22:15 11/18/16 22:14 Glucose (Glucose Chew Tab) 4-8 Tablets 4 Tabl... UD PRN PO 10/19/16 22:15 11/18/16 22:14 Dextrose (Dextrose 50% 50ML Syringe) 25-50ML OF 50% DW IV FOR... UD PRN IV 10/19/16 22:15 11/18/16 22:14 Glucagon (Glucagon Inj) 1 mg UD PRN SQ 10/19/16 22:15 11/18/16 22:14 Ondansetron HCl (Zofran Inj) 4 mg Q4H PRN IV 10/19/16 22:45 11/18/16 22:44 Hydromorphone HCl (Dilaudid Inj) 0.2 mg Q4H PRN IV 10/19/16 22:45 11/02/16 22:44 10/23/16 03:57 0.2 MG Diltiazem HCl (Cardizem Cd Cap) 240 mg DAILY PO 10/20/16 09:00 11/19/16 08:59 Future hold 10/23/16 09:26 240 MG Acetaminophen/ Hydrocodone Bitart 1 tab 1 tab Q4H PRN PO 10/19/16 23:00 11/02/16 22:59 10/23/16 19:57 1 TAB Potassium Chloride/Sodium Chloride (Nss + 20meq KCl 1000ml) 1,000 ml @ 100 mls/hr Q10H IV 10/19/16 23:45 11/18/16 23:44 10/24/16 00:05 100 MLS/HR Miscellaneous Information 1 ea 1 ea UD PRN N/A 10/20/16 15:55 11/19/16 15:54 Heparin Sodium/ Dextrose (Heparin 25,000 Unit/500ml D5W) 500 ml @ 18 mls/hr Q24H PRN IV 10/21/16 00:15 11/20/16 00:14 Future Hold 10/23/16 18:08 18 MLS/HR Nystatin 1 appln BID EXT 10/21/16 21:00 11/20/16 20:59 10/23/16 19:57 1 APPLN Dexamethasone 3.75 mg/Nystatin 30 ml/ Diphenhydramine HCl 300 mg/ Sucrose 45 ml/ Microcrystalline Cellulose 45 ml/ Barcode 1 ea swish in mouth and spit ... BID PRN PO 10/21/16 11:15 11/20/16 11:14 10/22/16 11:13 5 ML Daptomycin 600 mg/ Sodium Chloride 62 ml @ 100 mls/hr DAILY@1200 IV 10/22/16 12:00 11/05/16 11:59 10/23/16 11:49 100 MLS/HR Pantoprazole Sodium/Syringe (Protonix Inj/ Syringe) 10 ml @ 5 mls/min DAILY@11 IV 10/22/16 11:00 11/21/16 10:59 10/23/16 11:49 5 MLS/MIN Insulin Glargine (Lantus Solostar Pen) 18 unit BID SC 10/22/16 21:00 11/21/16 20:59 10/23/16 20:04 18 UNIT Insulin Aspart (novoLOG ASPART) SLIDING SCALE G... ACHS SC 10/23/16 16:00 11/22/16 15:59 10/23/16 20:03 3 UNITS Hydromorphone HCl (Dilaudid Inj) 0.5 mg Q5M PRN IV 10/24/16 08:00 10/24/16 13:00 Ondansetron HCl (Zofran Inj) 4 mg ONE PRN IV 10/24/16 08:00 10/24/16 13:00 Ephedrine Sulfate (EpHEDrine SULFATE INJ) 5 mg Q5M PRN IV 10/24/16 08:00 10/24/16 13:00 Atropine Sulfate (Atropine Sulfate 0.1MG/Ml Inj) 0.5 mg Q1M PRN IV 10/24/16 08:00 10/24/16 13:00 Phenylephrine HCl (Silvino-Synephrine 500MCG/5ML Syr) 100 mcg Q5M PRN IV 10/24/16 08:00 10/24/16 13:00 I & O: 24-Hour Column 10/24/16 08:00 Intake Total 3225 ml Output Total 4160 ml Balance -935 ml Vital Signs: Date Time Temp Pulse Resp B/P Pulse Ox O2 Delivery O2 Flow Rate FiO2 10/24/16 07:08 36.7 95 23 143/84 98 Nasal Cannula 2.0 10/24/16 06:00 94 29 135/75 97 2.0 10/24/16 04:00 Nasal Cannula 2.0 10/24/16 04:00 36.9 93 31 137/78 99 2.0 10/24/16 02:00 36.5 93 36 140/75 98 152/77 10/24/16 02:00 93 36 130/74 98 Nasal Cannula 2.0 10/24/16 01:37 36.5 88 21 140/75 100 152/77 10/24/16 00:00 36.5 88 21 126/74 100 Nasal Cannula 2.0 10/23/16 23:59 Nasal Cannula 2.0 10/23/16 22:00 92 19 130/73 100 Nasal Cannula 2.0 10/23/16 20:00 99 Nasal Cannula 2.0 10/23/16 20:00 36.9 99 27 129/83 98 Nasal Cannula 2.0 10/23/16 18:00 95 28 133/54 97 Nasal Cannula 2.0 10/23/16 16:00 36.8 101 26 137/66 97 Nasal Cannula 2.0 10/23/16 16:00 97 Nasal Cannula 2.0 10/23/16 14:00 108 26 123/66 96 Nasal Cannula 2.0 10/23/16 12:00 36.8 92 20 117/67 97 Nasal Cannula 2.0 10/23/16 12:00 97 Nasal Cannula 2.0 10/23/16 10:00 93 16 125/67 99 Nasal Cannula 2.0 Laboratory Results: Last 24 Hours Test 10/23/16 11:41 10/23/16 14:05 10/23/16 16:03 10/23/16 19:55 Bedside Glucose 152 mg/dl 162 mg/dl 198 mg/dl Hemoglobin 9.3 g/dL Hematocrit 28.1 % Activated Partial Thromboplast Time 52.4 SECONDS Partial Thromboplastin Ratio 2.0 Test 10/23/16 22:24 10/24/16 05:15 10/24/16 05:25 10/24/16 06:10 Hemoglobin 8.4 g/dL 8.4 g/dL Hematocrit 25.3 % 25.1 % Activated Partial Thromboplast Time 42.7 SECONDS Partial Thromboplastin Ratio 1.6 White Blood Count 16.47 K/uL Red Blood Count 2.84 M/uL Mean Corpuscular Volume 88.4 fL Mean Corpuscular Hemoglobin 29.6 pg Mean Corpuscular Hemoglobin Concent 33.5 g/dl RDW Standard Deviation 50.5 fL RDW Coefficient of Variation 15.7 % Platelet Count 413 K/uL Mean Platelet Volume 9.7 fL Nucleated RBC Absolute Count (auto) 0.02 K/uL Nucleated Red Blood Cells % 0.1 % Sodium Level 137 mmol/L Potassium Level 4.2 mmol/L Chloride Level 103 mmol/L Carbon Dioxide Level 29 mmol/L Anion Gap 5.0 mmol/L Blood Urea Nitrogen 11 mg/dl Creatinine 0.44 mg/dl Est Creatinine Clear Calc Drug Dose 147.4 ml/min Estimated GFR () 121.1 Estimated GFR (Non- 104.5 BUN/Creatinine Ratio 24.4 Random Glucose 129 mg/dl Calcium Level 6.8 mg/dl Bedside Glucose 133 mg/dl
--- NOTE | 2016-10-24 09:50 | OPERATIVE REPORT ---
DATE OF OPERATION: 10/24/2016 PREOPERATIVE DIAGNOSIS: Infected left total knee arthroplasty. POSTOPERATIVE DIAGNOSIS: Infected left total knee arthroplasty. PROCEDURE: I\T\D left total knee arthroplasty with poly change, Encore size 6 x 13, Placements of Stimulan daptomycin beads. SURGEON: Dr. Ibarra. RESIDENTIAL RECYCLE DRIVER: Zander Springer PA-C was necessary for prepping, draping, retraction, wound closure of deep fascia, subQ and skin and was necessary for the case. HISTORY OF PRESENT ILLNESS: The patient presents as a 66-year-old white female who was recently septic and recently as of Thursday underwent below knee amputation on the right knee, presents with an infected left total knee that was washed out initially on Thursday of this week, presents for I\T\D poly change. OPERATION AND FINDINGS: PROCEDURE: After proper prepping and draping of the left lower extremity the previous incision was opened. A medial parapatellar incision was made. The wound was irrigated with 9 liters of bacitracin impregnated sterile saline solution as well as Versajet for further debridement. The wound was cleaned. The implants were noted to be well fixed and no evidence of loosening of the implants was noted. The poly had been removed and was resized to a size 13 x 6, that gave excellent stability in both varus valgus stress extension, mid flexion and full flexion with full extension and flexion to 140 degrees. Subsequently, the poly was changed. The wound having been thoroughly irrigated and debridement lavage with Versajet having been used to clean the deeper soft tissue as well as subcutaneous tissues. The deep wound was closed over medium bore Hemovac after placing Stimulan daptomycin impregnated beads into the deep suprapatellar pouch, medial and lateral gutters. The medial parapatellar incision was subsequently closed with #1 Vicryl, subQ with 2-0 Vicryl, skin was closed with skin clips. A sterile compression dressing was placed. The patient was taken to recovery room in stable condition. I attest to the content of the Intraoperative Record and any orders documented therein. Any exceptio ns are noted below.
[2016-10-24 10:14] LABS: ISTAT CREATININE 0.5 mg/dl (0.6-1.3); ISTAT HEMOGLOBIN 9.2 g/dl (12.0-16.0)
[2016-10-24] MEDS: DILTIAZEM HCL 240 MG CAPCR PO SCH (10:32)
[2016-10-24] MEDS: INSULIN GLARGINE SOLOSTAR 100 UNITS/ML 3 ML PEN SC SCH ×2 (10:33→21:21)
--- NOTE | 2016-10-24 10:57 | Anesthesiology Progress Note ---
Anesthesia Post Op Note Date & Time Oct 24, 2016 at 10:57 Vital Signs Pain Intensity: 0 Vital Signs Past 12 Hours Date Time Temp Pulse Resp B/P Pulse Ox O2 Delivery O2 Flow Rate FiO2 10/24/16 10:25 36.7 77 29 114/54 95 Nasal Cannula 2 10/24/16 10:17 36.7 79 27 120/57 94 Nasal Cannula 2 10/24/16 10:04 36.4 82 22 119/57 95 Nasal Cannula 2 10/24/16 09:54 36.4 76 18 108/54 99 Mask 5 Arterial Line 10/24/16 07:08 36.7 95 23 143/84 98 Nasal Cannula 2.0 10/24/16 06:00 94 29 135/75 97 2.0 10/24/16 04:00 Nasal Cannula 2.0 10/24/16 04:00 36.9 93 31 137/78 99 2.0 10/24/16 02:00 36.5 93 36 140/75 98 152/77 10/24/16 02:00 93 36 130/74 98 Nasal Cannula 2.0 10/24/16 01:37 36.5 88 21 140/75 100 152/77 10/24/16 00:00 36.5 88 21 126/74 100 Nasal Cannula 2.0 10/23/16 23:59 Nasal Cannula 2.0 Notes Mental Status: alert / awake / arousable, participated in evaluation Pt Amnestic to Procedure: Yes Nausea / Vomiting: adequately controlled Pain: adequately controlled Airway Patency, RR, SpO2: stable & adequate BP & HR: stable & adequate Hydration State: stable & adequate Anesthetic Complications: no major complications apparent
--- NOTE | 2016-10-24 11:20 | CARDIOLOGY PROGRESS NOTE ---
DATE: 10/24/2016 DATE: 10/24/2016. FOLLOW-UP VISIT SUBJECTIVE: The patient is a 66-year-old female who was admitted with sepsis due to osteomyelitis of the right foot and septic left knee. The patient had a right BKA earlier in her admission. She also had a antibiotic spacer placed in the left knee and this morning had another spacer placed with antibiotic beads. This mornings surgery required intubation. The patient is still lethargic postanesthesia. This patient also has had persistent bacteremia with staph aureus and the continued white blood cell elevation despite being on antibiotics. We have been asked to perform a transesophageal echocardiogram to exclude endocarditis and I think that that is appropriate. OBJECTIVE: GENERAL: The patient is postanesthesia. VITAL SIGNS: Blood pressure is 130/70, pulse is regular at 95 beats per minute. She is currently afebrile. HEAD, EYES, EARS, NOSE, AND THROAT: She has poor dentition. She is normocephalic. Pupils are equal and reactive to light. NECK: The neck veins are flat. Carotids have good upstrokes bilaterally without bruits. Thyroid is nonpalpable. RESPIRATORY: Breath sounds equal bilaterally and clear to auscultation. CARDIOVASCULAR: Heart has a regular rhythm. Normal S1, S2. No S3, S4. No cardiac rubs or murmurs. GASTROINTESTINAL: Abdomen is soft, nontender without organomegaly. EXTREMITIES: She has a right BKA and she is status post left knee surgery. NEUROLOGIC: Grossly intact. SKIN: Warm to touch. LYMPH NODES: Negative to palpation. IMPRESSION: 1. Continued bacteremia with staph aureus. 2. Osteomyelitis of the right foot status post right below knee amputation and a septic left knee joint, status post spacer placement. 3. Paroxysmal atrial fibrillation. RECOMMENDATIONS: I agree that RUBI is indicated at this time to exclude bacterial endocarditis with this patient having ongoing bacteremia with staph aureus. As mentioned above, the patient is status post surgery today and is still under the effects of anesthesia. When she is more alert we will obtain informed consent and once we have informed consent we will proceed with a transesophageal echocardiogram. I think that given her multiple medical problems and the need to be intubated for her most recent surgery, I would feel more comfortable with anesthesia managing her sedation today.
--- NOTE | 2016-10-24 11:22 | Infectious Disease Progress Nt ---
Progress Note Date of Service Oct 24, 2016. Subjective Pt evaluation today including: conversation w/ patient, physical exam, chart review, lab review, review of studies, conversation w/ identity management consultant (Dr. Murrell), review of inpatient medication list WBC count this morning was 16.47. Hgb was 8.4. Most recent blood cultures growing GPC already. Noted repeat cultures ordered this morning. The patient had a repeat I & D completed this morning. She answers all questions today as "OK", but she seems lethargic from surgery. She is anticipated to have a RUBI this afternoon. All Other Systems: Reviewed and Negative Medications Current Inpatient Medications Medications (Trade) Dose Ordered Sig/Denisse Route Start Time Stop Time Status Last Admin Dose Admin Acetaminophen (Tylenol Tab) 650 mg Q4H PRN PO 10/19/16 22:00 11/18/16 21:59 Glucose (Glucose 40% Gel) 15-30 GRAMS 15 GRAMS... UD PRN PO 10/19/16 22:15 11/18/16 22:14 Glucose (Glucose Chew Tab) 4-8 Tablets 4 Tabl... UD PRN PO 10/19/16 22:15 11/18/16 22:14 Dextrose (Dextrose 50% 50ML Syringe) 25-50ML OF 50% DW IV FOR... UD PRN IV 10/19/16 22:15 11/18/16 22:14 Glucagon (Glucagon Inj) 1 mg UD PRN SQ 10/19/16 22:15 11/18/16 22:14 Ondansetron HCl (Zofran Inj) 4 mg Q4H PRN IV 10/19/16 22:45 11/18/16 22:44 Hydromorphone HCl (Dilaudid Inj) 0.2 mg Q4H PRN IV 10/19/16 22:45 11/02/16 22:44 10/23/16 03:57 0.2 MG Diltiazem HCl (Cardizem Cd Cap) 240 mg DAILY PO 10/20/16 09:00 11/19/16 08:59 Future hold 10/24/16 10:32 240 MG Acetaminophen/ Hydrocodone Bitart (Mouthcard 5/325 Tab) 1 tab Q4H PRN PO 10/19/16 23:00 11/02/16 22:59 10/23/16 19:57 1 TAB Miscellaneous Information 1 ea 1 ea UD PRN N/A 10/20/16 15:55 11/19/16 15:54 Heparin Sodium/ Dextrose (Heparin 25,000 Unit/500ml D5W) 500 ml @ 18 mls/hr Q24H PRN IV 10/21/16 00:15 11/20/16 00:14 Future Hold 10/23/16 18:08 18 MLS/HR Nystatin 1 appln BID EXT 10/21/16 21:00 11/20/16 20:59 10/23/16 19:57 1 APPLN Dexamethasone 3.75 mg/Nystatin 30 ml/ Diphenhydramine HCl 300 mg/ Sucrose 45 ml/ Microcrystalline Cellulose 45 ml/ Barcode 1 ea swish in mouth and spit ... BID PRN PO 10/21/16 11:15 11/20/16 11:14 10/22/16 11:13 5 ML Daptomycin/Sodium Chloride (Cubicin IV/Nss 50ml) 62 ml @ 100 mls/hr DAILY@1200 IV 10/22/16 12:00 11/05/16 11:59 10/23/16 11:49 100 MLS/HR Insulin Glargine (Lantus Solostar Pen) 18 unit BID SC 10/22/16 21:00 11/21/16 20:59 10/24/16 10:33 18 UNIT Insulin Aspart (novoLOG ASPART) SLIDING SCALE G... ACHS SC 10/23/16 16:00 11/22/16 15:59 10/23/16 20:03 3 UNITS Hydromorphone HCl (Dilaudid Inj) 0.5 mg Q5M PRN IV 10/24/16 08:00 10/24/16 13:00 Ondansetron HCl (Zofran Inj) 4 mg ONE PRN IV 10/24/16 08:00 10/24/16 13:00 Ephedrine Sulfate (EpHEDrine SULFATE INJ) 5 mg Q5M PRN IV 10/24/16 08:00 10/24/16 13:00 Atropine Sulfate (Atropine Sulfate 0.1MG/Ml Inj) 0.5 mg Q1M PRN IV 10/24/16 08:00 10/24/16 13:00 Phenylephrine HCl (Silvino-Synephrine 500MCG/5ML Syr) 100 mcg Q5M PRN IV 10/24/16 08:00 10/24/16 13:00 Pantoprazole Sodium (Protonix Tab) 40 mg QAM PO 10/25/16 09:00 11/24/16 08:59 Objective Vital Signs Date Time Temp Pulse Resp B/P Pulse Ox O2 Delivery O2 Flow Rate FiO2 10/24/16 10:25 36.7 77 29 114/54 95 Nasal Cannula 2 10/24/16 10:17 36.7 79 27 120/57 94 Nasal Cannula 2 10/24/16 10:04 36.4 82 22 119/57 95 Nasal Cannula 2 10/24/16 09:54 36.4 76 18 108/54 99 Mask 5 Arterial Line 10/24/16 07:08 36.7 95 23 143/84 98 Nasal Cannula 2.0 10/24/16 06:00 94 29 135/75 97 2.0 10/24/16 04:00 Nasal Cannula 2.0 10/24/16 04:00 36.9 93 31 137/78 99 2.0 10/24/16 02:00 36.5 93 36 140/75 98 152/77 10/24/16 02:00 93 36 130/74 98 Nasal Cannula 2.0 10/24/16 01:37 36.5 88 21 140/75 100 152/77 10/24/16 00:00 36.5 88 21 126/74 100 Nasal Cannula 2.0 10/23/16 23:59 Nasal Cannula 2.0 10/23/16 22:00 92 19 130/73 100 Nasal Cannula 2.0 10/23/16 20:00 99 Nasal Cannula 2.0 10/23/16 20:00 36.9 99 27 129/83 98 Nasal Cannula 2.0 10/23/16 18:00 95 28 133/54 97 Nasal Cannula 2.0 10/23/16 16:00 36.8 101 26 137/66 97 Nasal Cannula 2.0 10/23/16 16:00 97 Nasal Cannula 2.0 10/23/16 14:00 108 26 123/66 96 Nasal Cannula 2.0 10/23/16 12:00 36.8 92 20 117/67 97 Nasal Cannula 2.0 10/23/16 12:00 97 Nasal Cannula 2.0 Physical Exam General Appearance: WD/WN, no apparent distress Eyes: normal inspection, sclerae normal ENT: hearing grossly normal Neck: supple, trachea midline Respiratory/Chest: chest non-tender, normal breath sounds, no respiratory distress, no accessory muscle use Cardiovascular: regular rate, rhythm, + extra beats Abdomen: normal bowel sounds, non tender, soft Extremities: + pertinent finding (Right BKA, Left large dressing in place. C/D/ I) Neurologic/Psychiatric: alert, normal mood/affect Skin: normal color, warm/dry, no rash Laboratory Results Item Value Date Time Blood Culture Received 10/24/16 1029 Blood Pending Blood Culture Received 10/24/16 1015 Blood Pending Blood Culture - Preliminary Resulted 10/23/16 0947 Blood Gram Positive Cocci Blood Culture - Preliminary Resulted 10/23/16 0940 Blood Gram Positive Cocci Last 24 Hours Test 10/23/16 11:41 10/23/16 14:05 10/23/16 16:03 10/23/16 19:55 Bedside Glucose 152 mg/dl 162 mg/dl 198 mg/dl Hemoglobin 9.3 g/dL Hematocrit 28.1 % Activated Partial Thromboplast Time 52.4 SECONDS Partial Thromboplastin Ratio 2.0 Test 10/23/16 22:24 10/24/16 05:15 10/24/16 05:25 10/24/16 06:10 Hemoglobin 8.4 g/dL 8.4 g/dL Hematocrit 25.3 % 25.1 % Activated Partial Thromboplast Time 42.7 SECONDS Partial Thromboplastin Ratio 1.6 White Blood Count 16.47 K/uL Red Blood Count 2.84 M/uL Mean Corpuscular Volume 88.4 fL Mean Corpuscular Hemoglobin 29.6 pg Mean Corpuscular Hemoglobin Concent 33.5 g/dl RDW Standard Deviation 50.5 fL RDW Coefficient of Variation 15.7 % Platelet Count 413 K/uL Mean Platelet Volume 9.7 fL Nucleated RBC Absolute Count (auto) 0.02 K/uL Nucleated Red Blood Cells % 0.1 % Sodium Level 137 mmol/L Potassium Level 4.2 mmol/L Chloride Level 103 mmol/L Carbon Dioxide Level 29 mmol/L Anion Gap 5.0 mmol/L Blood Urea Nitrogen 11 mg/dl Creatinine 0.44 mg/dl Est Creatinine Clear Calc Drug Dose 147.4 ml/min Estimated GFR () 121.1 Estimated GFR (Non- 104.5 BUN/Creatinine Ratio 24.4 Random Glucose 129 mg/dl Calcium Level 6.8 mg/dl Bedside Glucose 133 mg/dl Test 10/24/16 08:30 Bedside Hemoglobin 9.2 g/dl Bedside Hematocrit 27 % Bedside Sodium 134 mEq/L Bedside Potassium 4.3 mEq/L Bedside Chloride 97 mEq/L Bedside Total CO2 25 mEq/l Anion Gap 16.0 mmol/L Bedside Blood Urea Nitrogen 9 mg/dl Bedside Creatinine 0.5 mg/dl Bedside Glucose (other) 151 mg/dl Bedside Ionized Calcium (Ricci) 1.00 mmol/l Assessment and Plan Diabetic female with left septic TKA- now s/p I & D x 2, wound infection of the right lower extremity- now s/p right BKA, and MRSA bacteremia. Echocardiogram showed no evidence of vegetation on TTE. She is going to have a RUBI completed. She continues on Daptomycin. Will follow repeat blood cultures. She will need extended antibiotic therapy. She is anticipating a repeat I & D tomorrow of the left knee. She does also have a triple lumen catheter in currently. If she does not clear her blood cultures, this will need removed. PICC line should not be placed until blood cultures clear. We will follow. Case reviewed and agree with above assessment. continue IV Abx, culture remain + ,repeated again today, will follow.
--- NOTE | 2016-10-24 11:42 | Pharmacy Progress Note ---
Glycemic Control: Progress Nt Date of Service Oct 24, 2016. Scope Glycemic Pharmacist consulted by Dr Betancourt on 10/20/16 for glycemic control and to write orders per [facility] inpatient glycemic control protocol. Objective Accuchecks BSG (last 24hrs): Test 10/23/16 11:41 10/23/16 16:03 10/23/16 19:55 10/24/16 05:25 Bedside Glucose 152 mg/dl (70-90) 162 mg/dl (70-90) 198 mg/dl (70-90) Random Glucose 129 mg/dl (70-99) Test 10/24/16 06:10 Bedside Glucose 133 mg/dl (70-90) Laboratory Data (last 24hrs) Test 10/24/16 05:25 10/24/16 08:30 Anion Gap 5.0 mmol/L 16.0 mmol/L BUN/Creatinine Ratio 24.4 Blood Urea Nitrogen 11 mg/dl Creatinine 0.44 mg/dl Potassium Level 4.2 mmol/L Sodium Level 137 mmol/L White Blood Count 16.47 K/uL HbA1c: Test 10/20/16 05:45 Hemoglobin A1c 7.7 % (4.5-5.6) H Recent Pertinent Medications Outpatient Anti-diabetic Regimen: * Lantus 18 units SQ BID * Novolog ACHS per sliding scale: < 150 0 units, 150-200 4 units; 201-250 8 units; 251-300 10 units; etc... * Glipizide XL 10mg PO daily * A1c = 7.7 % 10/20/16 The patient is currently receiving: * Basal insulin: Lantus 18 units SQ BID; give 1/2 dose (9units) if BSG less than 110 * Correctional Insulin: Novolog Correction per scale ACHS Goal Range: Low 120 mg/dL - High 150 mg/dL Correction Factor: 20 mg/dL/unit * Prandial insulin: Per carb ratio of 1 unit per 8 grams CHO consumed * Oral Agents: None currently Risk Factors for Insulin Resistance: * Infection: R foot osteomyelitis, septic L TKA, bacteremia; all cultures growing MRSA; currently receiving Daptomycin (6mg/kg) * IVF: Heparin gtt mixed in D5W * Recent Surgery: POD # 3 s/p IVC placement and I+D of L TKA; POD # 2 s/p R BKA ; returned to OR today for I+D w/ poly exchanges + abx beads * Diet: NPO for surgery today; pt did resume a diet yesterday afternoon - consumed small amounts of carbs Assessment & Plan ASSESSMENT: 10/21/16 * Glycemic control has improved since insulin adjustments made yesterday * BSGs running 203-230 this AM * Pattern still suggests basal insulin deficiency, which was the problem yesterday as well. She did received 18 units of Lantus last PM - her usual home dosage. Fasting BSGs are improved this AM but she has required 7 units of Novolog correction overnight. She is NPO for surgery today. She received 1/2 her usual Lantus dose this AM (9 units). This is a reasonable starting point given NPO status. * Will increase correctional insulin dose should the basal insulin dose not be adequate for current stressors. * Will resume home Lantus dose this PM with 1/2 dose parameter added to lessen risk of hypoglycemia if patient not eating well post-op * OR planned today, will need to review meds used in OR to determine if dexamethasone used as this will greatly influence treatment plan 10/22/16 * Glycemic control continues to improve; last 6 BSGs 177-194 - acceptable for ICU / critically ill patient * It does not appear that this patient received steroids in the OR yesterday; will need to review chart later today to determine if steroids were given w/ today's procedure * Patient's PO intake has been poor over the last 2 days, small meal consumed at bedtime last evening, otherwise she has been NPO * Will give slightly reduced dose Lantus this AM due to continue NPO status * Overall she has been requiring ~50 units of insulin per day while NPO. BSGs are starting to trend down. 10/23/16 * Glycemic control has been acceptable overall, some BSGs mildly elevated yesterday, however this was axel-op and pt did not receive correctional insulin doses. This AM, however, BSGs are back to goal. * Plan is to continue current basal insulin doses as the BSGs over the last 2 days are more reflective of a fasting state, and during this fasting state he is requiring ~45-50 units / day. * Would not hold AM Lantus for surgery based upon current data * Novolog CF and CR will be tested today if patient able to eat; will follow post-prandial BSG trend 10/24/16 * Glycemic control acceptable at this time; BSGs have ranged 133-198 over last 24 hrs (only 1 BSG above 180) * Fasting BSG 133 this AM w/ 36units Lantus on board - no change * 2 of 3 post-prandial BSGs controlled w/ current CR - however eating small qnty carbs yesterday - no adjustment today but follow trend * It does not appear that steroids were given in today's OR case PLAN FOR INPATIENT GLYCEMIC CONTROL: * Continue Lantus 18 units SQ BID; give 1/2 dose (9 units) if BSG less than 110 * Continue correction factor of 20 mg/dl/unit * Continuing ratio of 1 unit per 8 grams CHO consumed * Continuing goal range of Low 120 mg/dL - High 150 mg/dL - which is keep current BSGs close to ICU goals * Please note that the plan above was derived based on current level of insulin resistance and hospital stress. These recommendations are appropriate for inpatient admission only. Plan of care upon discharge will need to be reassessed to avoid potential outpatient hypo/hyperglycemia. Thank you.
[2016-10-24] MEDS ORDERED: DAPTOmycin 500 MG VIAL IV ONE (12:04)
[2016-10-24] MEDS: DAPTOmycin IV 600 MG in SODIUM CHLORIDE 0.9% 50ML 50 ML IV SCH (12:09)
[2016-10-24] MEDS: HYDROCODONE/ACETAMOPHEN 5/325MG TAB PO PRN ×2 (12:16→18:15)
[2016-10-24] MEDS ORDERED: NURSING VERBAL MED ORDER ONE ×2 (12:30→13:00)
[2016-10-24 13:20] LABS: HEMATOCRIT 23.9 % (37-47)
--- NOTE | 2016-10-24 14:34 | Anesthesiology Progress Note ---
Anesthesia Progress Note Date of Service Oct 24, 2016. Progress Notes The patient was ordered to undergo a RUBI today with anesthesia. However, she was already under anesthesia when the procedure was ordered. Due to the nonemergent/urgent nature of the procedure and that the patient was unable to sign a consent from residual anesthesia, Dr. Pineda will postpone the procedure until 10/27/16.
[2016-10-24] MEDS: HEPARIN 25,000 UNIT/500ML D5W 500 ML IV PRN (16:33)
--- NOTE | 2016-10-24 17:44 | Progress Note ---
Internal Med Progress Note Date of Service: Oct 24, 2016. Provider Documentation: SUBJECTIVE: s/p left knee abx disc today tolerated procedure fine denies pain hemodynamics stable afebrile no complaints OBJECTIVE: Vital Signs-as noted below Exam: General-alert and oriented. Not in distress ENT-normal hearing Neck-no neck masses Lungs-cta b/l no wheezing no crackles Heart-s1 and s2 heard, regular rate and rhythm no murmurs Abdomen-soft bowel sounds present non tender no distension Extremities-s/p right bka s/p I and d and abx disc left knee Neuro-alert and awake moves extremities Lab data as noted below. ASSESSMENT & PLAN: SEVERE SEPSIS due to infected /septic left knee on empiric abx with Daptomycin /Cefepime /Flagyl ID eval appreciated wound culture /blood culture ordered Orthopedics on board pt had left total knee replacement done in 04/2000 s/p I and D of left TKA cx mrsa from I and D.and blood cx mrsa hemodynamics stable currently. currently only on daptomycin repeat cx mrsa duration of abx as per ID has central line plan for picc line when blood cx negative DVT bilateral lower extremity s/p ivc filter by vascular surgery AFIB RVR : appreciate input form Cardiology currently on po Cardizem and iv heparin rates under control ANEMIA : hb 7.4 form 8.6 possible due to severe sepsis hb 6.7 10/21/16 no obvious signs of bleeding s/p two units transfused hb 8.5 post transfusion 10/22/15 hb 7.5 10/23/16 and s/p one more unit transfused hb 8.0 today will monitor HYPOTENSION : due to severe sepsis given IV fluid bolus improved cont to monitor in ICU Recent Right foot toe amputations. hx of PVD s/p 2nd , 3rd and 4 th toe amputation with open wound , exposing bone wound care consulted iv abx as above vascular surgery recommends right BKA and s/p BKA on 10/22/16 TYPE 2 DM : holding oral meds severe sepsis insulin SSI /basal Lantus pharmacy consulted for glycemic control will monitor FULL CODE DVT PROPHYLAXIS scds DISPOSITION transferred to medical floor pt/ot social service for d/c planning Vital Signs: Date Time Temp Pulse Resp B/P Pulse Ox O2 Delivery O2 Flow Rate FiO2 10/24/16 15:41 36.7 93 16 135/80 96 Nasal Cannula 2.0 10/24/16 12:00 Nasal Cannula 2.0 10/24/16 12:00 36.7 76 24 129/77 98 Nasal Cannula 2.0 10/24/16 10:25 36.7 77 29 114/54 95 Nasal Cannula 2 10/24/16 10:17 36.7 79 27 120/57 94 Nasal Cannula 2 10/24/16 10:04 36.4 82 22 119/57 95 Nasal Cannula 2 10/24/16 09:54 36.4 76 18 108/54 99 Mask 5 Arterial Line 10/24/16 08:00 Nasal Cannula 10/24/16 08:00 Nasal Cannula 2.0 10/24/16 07:08 36.7 95 23 143/84 98 Nasal Cannula 2.0 10/24/16 06:00 94 29 135/75 97 2.0 10/24/16 04:00 Nasal Cannula 2.0 10/24/16 04:00 36.9 93 31 137/78 99 2.0 10/24/16 02:00 36.5 93 36 140/75 98 152/77 10/24/16 02:00 93 36 130/74 98 Nasal Cannula 2.0 10/24/16 01:37 36.5 88 21 140/75 100 152/77 10/24/16 00:00 36.5 88 21 126/74 100 Nasal Cannula 2.0 10/23/16 23:59 Nasal Cannula 2.0 10/23/16 22:00 92 19 130/73 100 Nasal Cannula 2.0 10/23/16 20:00 99 Nasal Cannula 2.0 10/23/16 20:00 36.9 99 27 129/83 98 Nasal Cannula 2.0 10/23/16 18:00 95 28 133/54 97 Nasal Cannula 2.0 Lab Results: Results Past 24 Hours Test 10/23/16 19:55 10/23/16 22:24 10/24/16 05:15 10/24/16 05:25 Range/Units Bedside Glucose 198 70-90 mg/dl Hemoglobin 8.4 8.4 12.0-16.0 g/dL Hematocrit 25.3 25.1 37-47 % Activated Partial Thromboplast Time 42.7 21.0-31.0 SECONDS Partial Thromboplastin Ratio 1.6 White Blood Count 16.47 4.8-10.8 K/uL Red Blood Count 2.84 4.2-5.4 M/uL Mean Corpuscular Volume 88.4 80-100 fL Mean Corpuscular Hemoglobin 29.6 25-34 pg Mean Corpuscular Hemoglobin Concent 33.5 32-36 g/dl RDW Standard Deviation 50.5 36.4-46.3 fL RDW Coefficient of Variation 15.7 11.5-14.5 % Platelet Count 413 130-400 K/uL Mean Platelet Volume 9.7 7.4-10.4 fL Nucleated RBC Absolute Count (auto) 0.02 0-0 K/uL Nucleated Red Blood Cells % 0.1 % Sodium Level 137 136-145 mmol/L Potassium Level 4.2 3.5-5.1 mmol/L Chloride Level 103 98-107 mmol/L Carbon Dioxide Level 29 21-32 mmol/L Anion Gap 5.0 3-11 mmol/L Blood Urea Nitrogen 11 7-18 mg/dl Creatinine 0.44 0.60-1.20 mg/dl Est Creatinine Clear Calc Drug Dose 147.4 ml/min Estimated GFR () 121.1 Estimated GFR (Non- 104.5 BUN/Creatinine Ratio 24.4 10-20 Random Glucose 129 70-99 mg/dl Calcium Level 6.8 8.5-10.1 mg/dl Test 10/24/16 06:10 10/24/16 08:30 10/24/16 12:11 10/24/16 13:04 Range/Units Bedside Glucose 133 179 70-90 mg/dl Bedside Hemoglobin 9.2 12.0-16.0 g/dl Bedside Hematocrit 27 37-47 % Bedside Sodium 134 135-144 mEq/L Bedside Potassium 4.3 3.3-5.0 mEq/L Bedside Chloride 97 101-112 mEq/L Bedside Total CO2 25 24-31 mEq/l Anion Gap 16.0 16-25 mmol/L Bedside Blood Urea Nitrogen 9 7-18 mg/dl Bedside Creatinine 0.5 0.6-1.3 mg/dl Bedside Glucose (other) 151 70-99 mg/dl Bedside Ionized Calcium (Ricci) 1.00 1.12-1.32 mmol/l Hemoglobin 8.0 12.0-16.0 g/dL Hematocrit 23.9 37-47 % Test 10/24/16 16:31 Range/Units Bedside Glucose 154 70-90 mg/dl Microbiology Results 10/24/16 Blood Culture, Received Pending 10/24/16 Blood Culture, Received Pending
[2016-10-24] MEDS: HYDROmorphone INJ 0.5 MG/0.5 ML SYR IV PRN (18:14)
[2016-10-24 20:59] LABS: HEMATOCRIT 24.5 % (37-47)
[2016-10-24] MEDS ORDERED: SODIUM CHLORIDE 0.9% 1000ML 1,000 ML IV ONE (23:45)
[2016-10-25] VITALS (14 sets, daily range): BP systolic 110–147; BP diastolic 59–80; PULSE 81–127; TEMP 36.5–37.1; O2SAT 93–96
[2016-10-25] MEDS: HYDROCODONE/ACETAMOPHEN 5/325MG TAB PO PRN ×4 (00:10→19:33)
[2016-10-25 06:21] LABS: PARTIAL THROMBOPLASTIN RATIO 1.9
[2016-10-25 06:34] LABS: BUN/CREATININE RATIO 27.1 (10-20); CALCIUM 7.3 mg/dl (8.5-10.1); CREATININE 0.52 mg/dl (0.60-1.20)
[2016-10-25] MEDS: HEPARIN 25,000 UNIT/500ML D5W 500 ML IV PRN ×3 (06:54→20:22)
[2016-10-25 07:09] LABS: HEMATOCRIT 21.6 % (37-47)
[2016-10-25] MEDS: DILTIAZEM HCL 240 MG CAPCR PO SCH (08:57)
[2016-10-25] MEDS: PANTOprazole SOD 40 MG TAB PO SCH (08:57)
[2016-10-25] MEDS: NYSTATIN POWDER 15GM BTL EXT SCH ×2 (08:57→21:17)
[2016-10-25] MEDS: INSULIN ASPART 100 UNITS/ML 3 ML PEN SC SCH ×4 (09:02→21:15)
[2016-10-25] MEDS: INSULIN GLARGINE SOLOSTAR 100 UNITS/ML 3 ML PEN SC SCH ×2 (09:03→21:13)
[2016-10-25] MEDS: DAPTOmycin IV 600 MG in SODIUM CHLORIDE 0.9% 50ML 50 ML IV SCH (11:35)
--- NOTE | 2016-10-25 12:28 | Orthopedic Progress Note ---
Orthopedic Progress Note Date of Service Oct 25, 2016. Subjective Post OP Day: 2 Reports: feeling well, pain controlled w PO medications, Denies: SOB, chest pain , complaints, light headedness, nausea / vomiting Objective dressing C/D/I, incision C/D/I, A&O x3 Dressing change today. It was clean, dry and intact. No drainage from the incision site. No erythema or ecchymosis noted. Patient was able to actively lift her left lower extremity during the dressing change. Date Time Temp Pulse Resp B/P Pulse Ox O2 Delivery O2 Flow Rate FiO2 10/25/16 08:15 Nasal Cannula 2.0 10/25/16 08:15 36.8 93 18 111/70 95 Nasal Cannula 2.0 10/25/16 03:10 36.9 99 18 127/74 94 Nasal Cannula 2.0 10/24/16 23:39 36.9 80 18 124/80 96 Nasal Cannula 2.0 10/24/16 23:25 Nasal Cannula 2.0 10/24/16 19:28 37.1 81 17 129/79 96 Nasal Cannula 2.0 10/24/16 17:00 Nasal Cannula 2.0 10/24/16 15:41 36.7 93 16 135/80 96 Nasal Cannula 2.0 Laboratory Results 24 Hours: Test 10/24/16 13:04 10/24/16 20:32 10/25/16 05:32 10/25/16 12:00 Hematocrit 23.9 % 24.5 % 21.6 % Hemoglobin 8.0 g/dL 8.1 g/dL 7.3 g/dL Assessment & Plan Assessment: POD #2 s/p right BKA POD #3 s/p Left TKA I&D with intra-op cultures showing gram positive cocci, knee aspirate from 10/20 staph aur. -currently on empiric Abx Daptomycin/Cefepime/Flagyl -currently has prevena wound vac with no drainage at the time of examination -Will have a dressing change tomorrow Severe Sepsis with septic left knee Gangrene right distal foot with exposed metatarsal bones - dressing was changed today. Dressing was C/D/I DVT bilateral lower extremity, ivc filter placed by dr steward on 10/21/16 AFIB RVR : appreciate input form Cardiology ANEMIA : H/H today 7.5/22.5, received 2 units PRBCs - H/H pending still TYPE 2 DM : holding oral meds insulin SSI /basal Lantus pharmacy consulted for glycemic control Plan: NPO after midnight tonight. D/C hemovac on right today. Will check with Dr. Ibarra' team about d/c of left hemovac or keep in place until tomorrow's procedure. Dr Ibarra for repeat I and D L knee with poly exchange vs explantation and anbx spacer. Inhouse Planning DVT Prophylaxis: TEDs, SCDs, Heparin Drip Discharge Planning Discharge Planning: uncertain
[2016-10-25 12:32] LABS: HEMATOCRIT 22.1 % (37-47)
[2016-10-25] MEDS ORDERED: FUROSEMIDE INJ 20 MG in SYRINGE 0 ML IV SCH (14:00)
--- NOTE | 2016-10-25 14:20 | Progress Note ---
Internal Med Progress Note Date of Service: Oct 25, 2016. Provider Documentation: SUBJECTIVE: s/p left knee abx disc yesterday tolerated procedure fine says had some pain while dressing changed but ok ow ate breakfast and trying to eat her lunch afebrile denies black stools or blood in stools denies sob or cough OBJECTIVE: Vital Signs-as noted below Exam: General-alert and oriented. Not in distress ENT-normal hearing Neck-no neck masses Lungs-cta b/l no wheezing no crackles Heart-s1 and s2 heard, regular rate and rhythm no murmurs Abdomen-soft bowel sounds present non tender no distension Extremities-s/p right bka s/p I and d and abx disc left knee Neuro-alert and awake moves extremities Lab data as noted below. ASSESSMENT & PLAN: SEVERE SEPSIS due to infected /septic left knee on empiric abx with Daptomycin /Cefepime /Flagyl ID eval appreciated Orthopedics on board pt had left total knee replacement done in 04/2000 s/p I and D of left TKA cx mrsa from I and D.and blood cx mrsa hemodynamics stable currently. currently only on daptomycin repeat cx mrsa duration of abx as per ID has central line plan for picc line when blood cx negative stable DVT bilateral lower extremity s/p ivc filter by vascular surgery AFIB RVR : appreciate input form Cardiology currently on po Cardizem and iv heparin rates under control ANEMIA : hb 7.4 form 8.6 possible due to severe sepsis hb 6.7 10/21/16 no obvious signs of bleeding s/p two units transfused hb 8.5 post transfusion 10/22/15 hb 7.5 10/23/16 and s/p one more unit transfused hb 7.5 today no signs of bleeding will check Hemoccult as patient on iv heparin will transfuse one more unit of prbc. will monitor HYPOTENSION : due to severe sepsis given IV fluid bolus improved Recent Right foot toe amputations. hx of PVD s/p 2nd , 3rd and 4 th toe amputation with open wound , exposing bone wound care consulted iv abx as above vascular surgery recommends right BKA and s/p BKA on 10/22/16 TYPE 2 DM : holding oral meds severe sepsis insulin SSI /basal Lantus pharmacy consulted for glycemic control will monitor FULL CODE DVT PROPHYLAXIS scds DISPOSITION transferred to medical floor pt/ot social service for d/c planning Vital Signs: Date Time Temp Pulse Resp B/P Pulse Ox O2 Delivery O2 Flow Rate FiO2 10/25/16 12:15 36.6 81 16 139/62 95 Nasal Cannula 2.0 10/25/16 08:15 Nasal Cannula 2.0 10/25/16 08:15 36.8 93 18 111/70 95 Nasal Cannula 2.0 10/25/16 03:10 36.9 99 18 127/74 94 Nasal Cannula 2.0 10/24/16 23:39 36.9 80 18 124/80 96 Nasal Cannula 2.0 10/24/16 23:25 Nasal Cannula 2.0 10/24/16 19:28 37.1 81 17 129/79 96 Nasal Cannula 2.0 10/24/16 17:00 Nasal Cannula 2.0 10/24/16 15:41 36.7 93 16 135/80 96 Nasal Cannula 2.0 Lab Results: Results Past 24 Hours Test 10/24/16 16:31 10/24/16 20:32 10/24/16 20:45 10/24/16 22:09 Range/Units Bedside Glucose 154 152 70-90 mg/dl Hemoglobin 8.1 12.0-16.0 g/dL Hematocrit 24.5 37-47 % Activated Partial Thromboplast Time 51.8 21.0-31.0 SECONDS Partial Thromboplastin Ratio 2.0 Test 10/25/16 05:32 10/25/16 08:07 10/25/16 12:16 10/25/16 12:28 Range/Units Hemoglobin 7.3 7.5 12.0-16.0 g/dL Hematocrit 21.6 22.1 37-47 % Activated Partial Thromboplast Time 48.5 21.0-31.0 SECONDS Partial Thromboplastin Ratio 1.9 Sodium Level 136 136-145 mmol/L Potassium Level 4.0 3.5-5.1 mmol/L Chloride Level 100 98-107 mmol/L Carbon Dioxide Level 27 21-32 mmol/L Anion Gap 9.0 3-11 mmol/L Blood Urea Nitrogen 14 7-18 mg/dl Creatinine 0.52 0.60-1.20 mg/dl Est Creatinine Clear Calc Drug Dose 123.0 ml/min Estimated GFR () 114.6 Estimated GFR (Non- 98.9 BUN/Creatinine Ratio 27.1 10-20 Random Glucose 135 70-99 mg/dl Calcium Level 7.3 8.5-10.1 mg/dl Bedside Glucose 129 168 70-90 mg/dl Microbiology Results 10/25/16 Blood Culture, Received Pending 10/25/16 Blood Culture, Received Pending
[2016-10-26 03:58] VITALS: BP 144/75; PULSE 101; TEMP 36.9; O2SAT 92
[2016-10-26 04:59] LABS: HEMATOCRIT 23.6 % (37-47); MEAN CELL VOLUME 89.4 fL (80-100); MEAN CORPUSCULAR HEMOGLOBIN 30.3 pg (25-34); MEAN PLATELET VOLUME 9.7 fL (7.4-10.4); PLATELET COUNT 601 K/uL (130-400); RED BLOOD COUNT 2.64 M/uL (4.2-5.4); WHITE BLOOD COUNT 23.39 K/uL (4.8-10.8)
[2016-10-26 05:03] LABS: MEAN CORPUSCULAR HGB CONC 33.9 g/dl (32-36)
[2016-10-26] MEDS: HEPARIN 25,000 UNIT/500ML D5W 500 ML IV PRN ×3 (07:01→14:58)
[2016-10-26 08:00] VITALS: O2SAT 92
[2016-10-26 08:05] VITALS: BP 131/72; PULSE 97; TEMP 37.2; O2SAT 92
[2016-10-26] MEDS: INSULIN ASPART 100 UNITS/ML 3 ML PEN SC SCH ×4 (08:36→21:00)
[2016-10-26] MEDS: PANTOprazole SOD 40 MG TAB PO SCH (08:37)
[2016-10-26] MEDS: DILTIAZEM HCL 240 MG CAPCR PO SCH (08:37)
[2016-10-26] MEDS: NYSTATIN POWDER 15GM BTL EXT SCH ×2 (08:37→21:46)
[2016-10-26] MEDS: INSULIN GLARGINE SOLOSTAR 100 UNITS/ML 3 ML PEN SC SCH ×2 (08:37→21:44)
[2016-10-26 08:42] LABS: HEMATOCRIT 24.8 % (37-47)
[2016-10-26 08:49] LABS: PARTIAL THROMBOPLASTIN RATIO 1.7
[2016-10-26] MEDS ORDERED: HEPARIN IV BOLUS 3,000 UNIT in SYRINGE 0 ML IV ONE (09:15)
[2016-10-26] MEDS: DAPTOmycin IV 600 MG in SODIUM CHLORIDE 0.9% 50ML 50 ML IV SCH (11:36)
--- NOTE | 2016-10-26 12:59 | CARDIOLOGY PROGRESS NOTE ---
DATE: 10/26/2016 DATE: 10/26/2016. FOLLOW-UP VISIT SUBJECTIVE: The patient is a 66-year-old who presented with sepsis due to an osteomyelitis of the right foot as well as septic left knee. She has had a right BKA and surgeries on her left knee for debridement and a spacer placed. The patient has been stable and receiving antibiotics. She has had a persistent bacteremia and we were asked to complete a transesophageal echocardiogram to rule out endocarditis. I discussed the procedure with the patient and her family. I explained the risks, benefits and intent of the procedure to her and she is willing to proceed. It will be performed tomorrow morning with the help of anesthesia.
--- NOTE | 2016-10-26 13:09 | Pharmacy Progress Note ---
Glycemic Control: Progress Nt Date of Service Oct 26, 2016. Scope Glycemic Pharmacist consulted by Dr Betancourt on 10/20/16 for glycemic control and to write orders per [facility] inpatient glycemic control protocol. Objective Accuchecks BSG (last 24hrs): Test 10/25/16 16:57 10/25/16 20:57 10/26/16 08:00 10/26/16 11:35 Bedside Glucose 200 mg/dl (70-90) 198 mg/dl (70-90) 141 mg/dl (70-90) 171 mg/dl (70-90) Laboratory Data (last 24hrs) Test 10/26/16 04:47 White Blood Count 23.39 K/uL HbA1c: Test 10/20/16 05:45 Hemoglobin A1c 7.7 % (4.5-5.6) H Recent Pertinent Medications Outpatient Anti-diabetic Regimen: * Lantus 18 units SQ BID * Novolog ACHS per sliding scale: < 150 0 units, 150-200 4 units; 201-250 8 units; 251-300 10 units; etc... * Glipizide XL 10mg PO daily The patient is currently receiving: * Basal insulin: Lantus 18 units every 12 hours * Correctional Insulin: Novolog Correction per scale ACHS Goal Range: Low 120 mg/dL - High 150 mg/dL Correction Factor: 20 mg/dL/unit * Prandial insulin: Per carb ratio of 1 unit per 8 grams CHO consumed * Oral Agents: Risk Factors for Insulin Resistance: * Infection * Recent Surgery * Diet Assessment & Plan ASSESSMENT: * 66yo T2DM female with adequate degree of outpatient control per recent A1c * Seems reasonable to continue current outpatient regimen at discharge * Pt is currently receiving Sq basal bolus insulin regimen similar to outpatient dosing. Glipizide on hold for admission & utilizing CR instead. * Pt has been requiring 50-60 units of insulin per day with adequate control. * AM fasting BSGs are in goal range for inpatient use @ 129 & 141 over the past 2 days * Post-prandial BSGs are slightly elevated --> will tighten CR and lower goal range * ADA & AACE recommend a goal blood sugar range 140-180 mg/dl for the majority of critically ill & non-critically ill patients. However, more stringent targets may be selected in individual cases. Will utilize more stringent goal range of 110-140mg/dl based on tight glycemic control at baseline. PLAN FOR INPATIENT GLYCEMIC CONTROL: Minimal changes required over the past 3 days. Pt condition is stable. OK to resume previous outpatient regimen. Pharmacy will sign off of glycemic consult. * Hold outpatient oral diabetes medications * Basal insulin with LANTUS 18 units SQ BID * NOVOLOG per scale ACHS or Q6hrs while NPO * Goal Range: Low 110 mg/dL - High 140 mg/dL * Correction Factor: 20 mg/dL/unit * Nutritional / Prandial insulin per carb ratio of 1 unit per 6 grams CHO consumed * Pharmacy is signing off of glycemic consult. Please feel free to re-consult if needed. * Please note that the plan above was derived based on current level of insulin resistance and hospital stress. These recommendations are appropriate for inpatient admission only. Plan of care upon discharge will need to be reassessed to avoid potential outpatient hypo/hyperglycemia. Thank you.
--- NOTE | 2016-10-26 13:56 | Orthopedic Progress Note ---
Orthopedic Progress Note Date of Service Oct 26, 2016. Subjective Denies: SOB, chest pain, complaints, light headedness, nausea / vomiting Additional Notes: Pain improved control today. no F/C/N/V/D Objective N/V intact, dressing C/D/I, A&O x3, hemovac drainage (left knee) Date Time Temp Pulse Resp B/P Pulse Ox O2 Delivery O2 Flow Rate FiO2 10/26/16 08:05 37.2 97 18 131/72 92 Room Air 10/26/16 08:00 92 Room Air 2.0 10/26/16 03:58 36.9 101 144/75 92 Room Air 10/25/16 23:30 Nasal Cannula 2.0 10/25/16 22:51 36.9 104 18 135/72 96 Nasal Cannula 2.0 10/25/16 19:23 36.9 127 18 110/70 95 Nasal Cannula 2.0 10/25/16 18:01 37.0 106 18 136/74 96 2.0 10/25/16 18:00 37.0 106 18 136/74 96 Nasal Cannula 2.0 10/25/16 17:07 36.8 102 20 135/80 95 2.0 10/25/16 16:45 96 Nasal Cannula 2.0 10/25/16 16:30 37.1 109 18 147/70 96 2.0 10/25/16 16:00 36.5 102 18 120/62 93 2.0 10/25/16 15:50 36.8 102 16 126/68 94 2.0 10/25/16 15:35 36.5 117 20 131/59 95 0.0 10/25/16 15:20 36.5 117 20 131/59 95 Nasal Cannula 2.0 Laboratory Results 24 Hours: Test 3 20:21 10/26/16 04:47 10/26/16 08:25 Hematocrit 24.0 % 23.6 % 24.8 % Hemoglobin 8.3 g/dL 8.0 g/dL 8.3 g/dL Assessment & Plan Assessment: POD #4 s/p right BKA POD #2 s/p Left TKA I&D w/ poly exchange and Anbx beads DVT bilateral lower extremity, ivc filter placed by dr steward on 10/21/16 AFIB RVR : appreciate input form Cardiology ANEMIA-improved TYPE 2 DM : holding oral meds insulin SSI /basal Lantus pharmacy consulted for glycemic control Plan: D/C hemovac on left with dressing change today. OOB to chair Consult PT/OT DVT prophylaxis Inhouse Planning DVT Prophylaxis: TEDs, SCDs, Heparin Drip Discharge Planning Discharge Planning: uncertain
[2016-10-26 15:32] LABS: PARTIAL THROMBOPLASTIN RATIO 1.8
[2016-10-26 16:45] VITALS: O2SAT 92
[2016-10-26 17:10] VITALS: BP 173/79; PULSE 105; TEMP 37.1; O2SAT 90
--- NOTE | 2016-10-26 19:55 | Progress Note ---
Internal Med Progress Note Date of Service: Oct 26, 2016. Provider Documentation: SUBJECTIVE: denies pain afebrile denies chest pain or sob eating ok seems frustrated that not getting better OBJECTIVE: Vital Signs-as noted below Exam: General-alert and oriented. Not in distress ENT-normal hearing Neck-no neck masses Lungs-cta b/l no wheezing no crackles Heart-s1 and s2 heard, regular rate and rhythm no murmurs Abdomen-soft bowel sounds present non tender no distension Extremities-s/p right bka s/p I and d and abx disc left knee Neuro-alert and awake moves extremities Lab data as noted below. ASSESSMENT & PLAN: 66F presented with severe sepsis secondary to infected LEFT TKA. Also patient had hx of PVD and recent amputations of right toes with bones exposing and vascular surgery recommended right BKA. Patient initially on iv daptomycin/ cefepime and Flagyl. All the cultures growing MRSA.Currently on Iv daptomycin. Patient is s/p Left knee I and D abx disc placement and also Right BKA.Patient developed rapid afib during initially presentation and was on Cardizem drip. Currently stable on po Cardizem and iv heparin. Hx of DVT and because of multiple procedures and been of of iv heparin vascular surgery placed ivc filter. Developed anemia requiring total of 4units prbc transfusion. No obvious source of bleeding, mostly from sepsis and post op. Monitor h and h while on iv heparin. Persistent bacteremia and cardiology planning for RUBI in am. Duration of abx as per ID. Plan for picc line when blood cx negative.pt/ot. SEVERE SEPSIS bacteremia due to infected /septic left knee on empiric abx with Daptomycin /Cefepime /Flagyl ID eval appreciated Orthopedics on board pt had left total knee replacement done in 04/2000 s/p I and D of left TKA cx mrsa from I and D.and blood cx mrsa hemodynamics stable currently. currently only on daptomycin repeat cx mrsa duration of abx as per ID has central line plan for picc line when blood cx negative PLAN FOR RUBI IN AM FOR PERSISTENT BACTEREMIA DVT bilateral lower extremity s/p ivc filter by vascular surgery AFIB RVR : appreciate input form Cardiology currently on po Cardizem and iv heparin rates under control ANEMIA : hb 7.4 form 8.6 possible due to severe sepsis hb 6.7 10/21/16 no obvious signs of bleeding s/p two units transfused hb 8.5 post transfusion 10/22/15 hb 7.5 10/23/16 and s/p one more unit transfused hb 8.3 today no signs of bleeding will check Hemoccult as patient on iv heparin will monitor HYPOTENSION : due to severe sepsis given IV fluid bolus improved Recent Right foot toe amputations. hx of PVD s/p 2nd , 3rd and 4 th toe amputation with open wound , exposing bone wound care consulted iv abx as above vascular surgery recommends right BKA and s/p BKA on 10/22/16 TYPE 2 DM : holding oral meds severe sepsis insulin SSI /basal Lantus pharmacy consulted for glycemic control will monitor FULL CODE DVT PROPHYLAXIS scds DISPOSITION transferred to medical floor pt/ot social service for d/c planning Vital Signs: Date Time Temp Pulse Resp B/P Pulse Ox O2 Delivery O2 Flow Rate FiO2 10/26/16 17:10 37.1 105 16 173/79 90 Room Air 10/26/16 16:45 92 Room Air 10/26/16 08:05 37.2 97 18 131/72 92 Room Air 10/26/16 08:00 92 Room Air 2.0 10/26/16 03:58 36.9 101 144/75 92 Room Air 10/25/16 23:30 Nasal Cannula 2.0 10/25/16 22:51 36.9 104 18 135/72 96 Nasal Cannula 2.0 Lab Results: Results Past 24 Hours Test 10/25/16 20:21 10/25/16 20:57 10/26/16 04:47 10/26/16 08:00 Range/Units Hemoglobin 8.3 8.0 12.0-16.0 g/dL Hematocrit 24.0 23.6 37-47 % Bedside Glucose 198 141 70-90 mg/dl White Blood Count 23.39 4.8-10.8 K/uL Red Blood Count 2.64 4.2-5.4 M/uL Mean Corpuscular Volume 89.4 80-100 fL Mean Corpuscular Hemoglobin 30.3 25-34 pg Mean Corpuscular Hemoglobin Concent 33.9 32-36 g/dl RDW Standard Deviation 50.5 36.4-46.3 fL RDW Coefficient of Variation 15.3 11.5-14.5 % Platelet Count 601 130-400 K/uL Mean Platelet Volume 9.7 7.4-10.4 fL Test 10/26/16 08:25 10/26/16 11:35 10/26/16 15:10 10/26/16 17:32 Range/Units Hemoglobin 8.3 12.0-16.0 g/dL Hematocrit 24.8 37-47 % Activated Partial Thromboplast Time 44.7 47.1 21.0-31.0 SECONDS Partial Thromboplastin Ratio 1.7 1.8 Bedside Glucose 171 136 70-90 mg/dl Microbiology Results 10/26/16 Blood Culture, Received Pending 10/26/16 Blood Culture, Received Pending
[2016-10-26 22:58] VITALS: BP 158/79; PULSE 124; TEMP 36.8; O2SAT 91
[2016-10-27] VITALS (14 sets, daily range): BP systolic 122–166; BP diastolic 59–90; PULSE 89–121; TEMP 36.6–37.3; O2SAT 91–98
[2016-10-27] MEDS: HEPARIN 25,000 UNIT/500ML D5W 500 ML IV PRN ×5 (01:08→22:56)
[2016-10-27 05:49] LABS: HEMATOCRIT 23.8 % (37-47); MEAN CELL VOLUME 87.8 fL (80-100); MEAN CORPUSCULAR HEMOGLOBIN 29.9 pg (25-34); MEAN PLATELET VOLUME 9.3 fL (7.4-10.4); PLATELET COUNT 757 K/uL (130-400); RED BLOOD COUNT 2.71 M/uL (4.2-5.4); WHITE BLOOD COUNT 19.55 K/uL (4.8-10.8)
[2016-10-27 05:57] LABS: PARTIAL THROMBOPLASTIN RATIO 1.7
[2016-10-27 06:25] LABS: BUN/CREATININE RATIO 17.1 (10-20); CALCIUM 7.2 mg/dl (8.5-10.1); CREATININE 0.45 mg/dl (0.60-1.20); POTASSIUM 3.6 mmol/L (3.5-5.1)
[2016-10-27] MEDS ORDERED: INSULIN ASPART 100 UNITS/ML 3 ML PEN SC SCH (07:00)
[2016-10-27] MEDS ORDERED: NURSING VERBAL MED ORDER ONE ×2 (07:00→08:45)
[2016-10-27] MEDS ORDERED: HEPARIN IV BOLUS 3,000 UNIT in SYRINGE 0 ML IV ONE ×2 (07:15→16:00)
[2016-10-27 07:43] LABS: BASO % 0.5 %; BASO ABS # 0.09 K/uL (0-0.2); COMPLETE YES; EOS % 6.5 %; IG% 6.3 %; LYMPH % 8.1 %; LYMPH ABS # 1.59 K/uL (1.2-3.4); MONO % 5.6 %; TOXIC GRANULATION 1+
[2016-10-27] MEDS: DILTIAZEM HCL 240 MG CAPCR PO SCH (08:03)
[2016-10-27] MEDS: PANTOprazole SOD 40 MG TAB PO SCH (08:04)
[2016-10-27] MEDS: NYSTATIN POWDER 15GM BTL EXT SCH ×2 (08:13→21:40)
--- NOTE | 2016-10-27 08:14 | Anesthesiology Progress Note ---
Anesthesia Post Op Note Date & Time Oct 27, 2016 at 08:14 Vital Signs Pain Intensity: 0.0 Vital Signs Past 12 Hours Date Time Temp Pulse Resp B/P Pulse Ox O2 Delivery O2 Flow Rate FiO2 10/27/16 08:07 100 16 132/65 96 Nasal Cannula 2 10/27/16 07:57 89 16 147/72 96 Nasal Cannula 2 10/27/16 07:47 98 16 122/66 98 Nasal Cannula 4 10/27/16 07:47 92 16 142/82 96 Nasal Cannula 2 10/27/16 07:45 98 16 122/66 98 Nasal Cannula 4 10/27/16 07:43 96 16 122/59 96 Nasal Cannula 4 10/27/16 07:40 96 16 136/71 96 Nasal Cannula 4 10/27/16 07:35 95 16 134/63 96 Nasal Cannula 4 10/27/16 07:33 109 16 134/63 95 Nasal Cannula 4 10/27/16 07:32 109 16 134/63 95 Nasal Cannula 4 10/27/16 07:30 109 16 154/74 95 Nasal Cannula 4 10/27/16 06:58 36.8 113 19 166/76 94 Room Air 10/27/16 00:30 105 10/27/16 00:30 Nasal Cannula 2.0 10/26/16 22:58 36.8 124 20 158/79 91 Nasal Cannula Notes Mental Status: alert / awake / arousable, participated in evaluation Pt Amnestic to Procedure: Yes Nausea / Vomiting: adequately controlled Pain: adequately controlled Airway Patency, RR, SpO2: stable & adequate BP & HR: stable & adequate Hydration State: stable & adequate Anesthetic Complications: no major complications apparent
[2016-10-27] MEDS: INSULIN GLARGINE SOLOSTAR 100 UNITS/ML 3 ML PEN SC SCH ×2 (08:15→21:52)
[2016-10-27] MEDS: DAPTOmycin IV 600 MG in SODIUM CHLORIDE 0.9% 50ML 50 ML IV SCH (11:30)
[2016-10-27] MEDS: INSULIN ASPART 100 UNITS/ML 3 ML PEN SC SCH ×3 (12:55→21:54)
--- NOTE | 2016-10-27 13:55 | ORTHOPEDIC PROGRESS NOTE ---
DATE: 10/27/2016 SUBJECTIVE: This afternoon, the patient was being rounded on and she is lying in bed. She is awake and alert and oriented and has no overt complaints. She states that her pain control was adequate currently and denies shortness of breath, chest pain, lightheadedness, etc. I asked her if she was getting out of bed and she states that they tried yesterday with PT and said it was an "utter failure", and discussed the need to increase her mobilization even if it is to the bedside. OBJECTIVE: On examination of her left knee, she has an Jeremiah bandage wrapped around the left knee and looking under the bandage she has Prevena wound VAC that is currently functioning and has no drainage coming from the wound itself. On the right side, she has the noted right BKA and the dressing was taken down and the wound appears very benign. There is no erythema and very minimal drainage noted and the wound appears to be healing well. Acticoat dressing was still left in place and a new dressing was applied to the right BKA site. ASSESSMENT: 1. Left septic total knee arthroplasty with incision and drainage x2 with polyethylene bearing change. The most recent I&D was on 10/24/[address] Ibarra with polyethylene bearing change. 2. Status post day #5 of a right below knee amputation due to infection of right foot and osteomyelitis. PLAN: At this point, per orthopedics, continue IV antibiotics as per ID team. Plan for daily or every other day dressing changes for the right BKA site and in approximately 2 days we will go ahead and remove the Prevena wound VAC and go to regular dressings and if need be. We discussed with patient that she needed to try to at least start getting up and out to the bedside of the bed to increase her mobilization. The patient said she would try. Appreciate medical and cardiology services as well as infectious disease services. DEB
--- NOTE | 2016-10-27 14:40 | TEE ---
*NOTICE TO RECEIVING [employer]Y This information is strictly Confidential and protected under [place] law. [place] law prohibits you from making any further disclosure of this information unless further disclosure is expressly permitted by the written consent of the person to whom it pertains or is authorized by law. A general authorization for the release of medical or other information is not sufficient for this purpose. Hospital accepts no responsibility if the information is made available to any other person, INCLUDING THE PATIENT. Interpretation Summary * Name: RICA RETANA Study Date: 10/27/2016 07:29 AM BP: 160/90 mmHg * Patient Location: .[facility]\S\W351\S\2 HR: 118 * : 1950 (M/d/yyyy) Gender: Female Height: 64 in * Age: 66 yrs Ethnicity: [place] Weight: 227 lb * Ordering Physician: Reinier Pineda * Referring Physician: No Doctor, Assigned * Performed By: Virgen Coffman RDCS * * Reason For Study: ENC * BSA: 2.1 m2 * There is no evidence of a mass or vegetation. This does not rule out endocarditis. * -- Conclusions -- * There is no evidence of a mass or vegetation. This does not completely rule out endocarditis. * There is moderate concentric left ventricular hypertrophy. * The left ventricle is normal in size. * Ejection Fraction = 60-65%. * The right ventricular systolic function is normal. Procedure Details * The transesophageal portion of this study was personally supervised by the undersigned interpreting physician. * RUBI Probe #1 utilized for procedure. * The study was performed in Cardiac Catheterization Lab. * Time out was conducted by the physician, nurse, and audio video technician with positive identification of patient and procedure. * Informed consent for Transesophageal Echocardiogram was obtained prior to the procedure. * An intravenous line was placed. A topical anesthetic agent was used for oropharangeal anesthesia. A bite block was inserted. * Sedation performed by the anesthesia department. * The patient's vital signs, including blood pressure, heart rate, pulse oximetry and cardiac rhythm were monitored throughout the procedure . * The posterior oropharynx was anesthetized using a topical anesthetic spray. A bite guard was inserted. * A multifrequency, multiplane transesopheageal echocardiographic endoscope was inserted and manipulated in the standard fashion to achieve multiplane views. * The transesophageal probe was passed without difficulty. * The usual views were obtained; basal, mid-esophageal, transgastric and aortic views. * The patient tolerated the procedure well without evidence of orophangeal or esophageal trauma. * A 2D transesophageal echocardiogram with color flow Doppler was performed. Left Ventricle * The left ventricle is normal in size. * There is moderate concentric left ventricular hypertrophy. * Ejection Fraction = 60-65%. * The left ventricular wall motion is normal. Right Ventricle * The right ventricle is normal size. * The right ventricular systolic function is normal. Atria * The left atrial size is normal. * No thrombus is detected in the left atrial appendage. * Right atrial size is normal. * The interatrial septum is intact with no evidence for an atrial septal defect. Mitral Valve * The mitral valve is grossly normal. * There is no vegetation seen on the mitral valve. * Significant mitral regurgitation is absent. Tricuspid Valve * The tricuspid valve is not well visualized, but is grossly normal. * There is no tricuspid valve vegetation. * Significant tricuspid regurgitation is absent. Aortic Valve * Aortic valve sclerosis moderate, without significant aortic valvular stenosis. * There is no aortic valvular vegetation. * There is no significant aortic regurgitation. Great Vessels * The aortic root and proximal ascending aorta are normal sized. Pericardium * There is no pericardial effusion.
[2016-10-27 15:18] LABS: PARTIAL THROMBOPLASTIN RATIO 1.7
--- NOTE | 2016-10-27 15:53 | Infectious Disease Progress Nt ---
Progress Note Date of Service Oct 27, 2016. Subjective Pt evaluation today including: conversation w/ patient, physical exam, chart review, lab review, review of studies, conversation w/ big machine consultant (pharmacy), review of inpatient medication list WBC count today was 19.55. Plt count was 757 this morning. Creatinine stable at 0.45. I spoke with pharmacy- no baseline CPK at this time. May need to increase dose of Daptomycin pending repeat cultures. Noted that triple lumen central line was removed Thursday night. Blood cultures from Thursday continue to grow MRSA. Patient had repeat I & D Thursday. RUBI completed today- note no mass or vegetation noted but does not completely R/O Endocarditis. All Other Systems: Reviewed and Negative Medications Current Inpatient Medications Medications (Trade) Dose Ordered Sig/Denisse Route Start Time Stop Time Status Last Admin Dose Admin Acetaminophen (Tylenol Tab) 650 mg Q4H PRN PO 10/19/16 22:00 11/18/16 21:59 Glucose (Glucose 40% Gel) 15-30 GRAMS 15 GRAMS... UD PRN PO 10/19/16 22:15 11/18/16 22:14 Glucose (Glucose Chew Tab) 4-8 Tablets 4 Tabl... UD PRN PO 10/19/16 22:15 11/18/16 22:14 Dextrose (Dextrose 50% 50ML Syringe) 25-50ML OF 50% DW IV FOR... UD PRN IV 10/19/16 22:15 11/18/16 22:14 Glucagon (Glucagon Inj) 1 mg UD PRN SQ 10/19/16 22:15 11/18/16 22:14 Ondansetron HCl (Zofran Inj) 4 mg Q4H PRN IV 10/19/16 22:45 11/18/16 22:44 Hydromorphone HCl (Dilaudid Inj) 0.2 mg Q4H PRN IV 10/19/16 22:45 11/02/16 22:44 10/24/16 18:14 0.2 MG Diltiazem HCl (Cardizem Cd Cap) 240 mg DAILY PO 10/20/16 09:00 11/19/16 08:59 Future hold 10/26/16 08:37 240 MG Acetaminophen/ Hydrocodone Bitart (Justice 5/325 Tab) 1 tab Q4H PRN PO 10/19/16 23:00 11/02/16 22:59 10/25/16 19:33 1 TAB Nystatin 1 appln BID EXT 10/21/16 21:00 11/20/16 20:59 10/27/16 08:13 1 APPLN Dexamethasone 3.75 mg/Nystatin 30 ml/ Diphenhydramine HCl 300 mg/ Sucrose 45 ml/ Microcrystalline Cellulose 45 ml/ Barcode 1 ea swish in mouth and spit ... BID PRN PO 10/21/16 11:15 11/20/16 11:14 10/22/16 11:13 5 ML Daptomycin/Sodium Chloride (Cubicin IV/Nss 50ml) 62 ml @ 100 mls/hr DAILY@1200 IV 10/22/16 12:00 11/05/16 11:59 10/27/16 11:30 100 MLS/HR Insulin Glargine (Lantus Solostar Pen) 18 unit BID SC 10/22/16 21:00 11/21/16 20:59 10/27/16 08:15 18 UNIT Pantoprazole Sodium 40 mg 40 mg QAM PO 10/25/16 09:00 11/24/16 08:59 10/26/16 08:37 40 MG Heparin Sodium/ Dextrose (Heparin 25,000 Unit/500ml D5W) 500 ml @ 20 mls/hr Q24H PRN IV 10/24/16 16:00 11/23/16 15:59 10/27/16 08:23 20 MLS/HR Insulin Aspart (novoLOG ASPART) SLIDING SCALE G... ACHS SC 10/27/16 12:00 11/26/16 11:59 10/27/16 12:55 6 UNITS Objective Vital Signs Date Time Temp Pulse Resp B/P Pulse Ox O2 Delivery O2 Flow Rate FiO2 10/27/16 08:30 93 Nasal Cannula 2.0 10/27/16 08:18 36.8 89 15 149/84 93 Nasal Cannula 2.0 10/27/16 08:07 100 16 132/65 96 Nasal Cannula 2 10/27/16 07:57 89 16 147/72 96 Nasal Cannula 2 10/27/16 07:47 98 16 122/66 98 Nasal Cannula 4 10/27/16 07:47 92 16 142/82 96 Nasal Cannula 2 10/27/16 07:45 98 16 122/66 98 Nasal Cannula 4 10/27/16 07:43 96 16 122/59 96 Nasal Cannula 4 10/27/16 07:40 96 16 136/71 96 Nasal Cannula 4 10/27/16 07:35 95 16 134/63 96 Nasal Cannula 4 10/27/16 07:33 109 16 134/63 95 Nasal Cannula 4 10/27/16 07:32 109 16 134/63 95 Nasal Cannula 4 10/27/16 07:30 109 16 154/74 95 Nasal Cannula 4 10/27/16 06:58 36.8 113 19 166/76 94 Room Air 10/27/16 00:30 105 10/27/16 00:30 Nasal Cannula 2.0 10/26/16 22:58 36.8 124 20 158/79 91 Nasal Cannula 10/26/16 17:10 37.1 105 16 173/79 90 Room Air 10/26/16 16:45 92 Room Air Physical Exam General Appearance: no apparent distress, + obese Eyes: normal inspection, sclerae normal ENT: hearing grossly normal Neck: supple, trachea midline Respiratory/Chest: chest non-tender, lungs clear, normal breath sounds, no respiratory distress, no accessory muscle use Cardiovascular: + irregularly irregular Abdomen: normal bowel sounds, non tender, soft Extremities: + pertinent finding (Right BKA- dressing in place. Left leg with large dressing in place. No surrounding erythema. Mild tenderness) Neurologic/Psychiatric: alert, + depressed affect Skin: normal color, warm/dry Laboratory Results RUN DATE: 10/26/16 [facility] LAB PAGE 1 RUN TIME: 1046 Specimen Inquiry PATIENT: RICA RETANA LOC: [facility] U # : [id number] AGE/SX: 66/F ROOM: [facility] REG : 10/19/[address]: Prasanna Car D.O. : 1950 BED: 2 DIS : STATUS: ADM IN TLOC: SPEC #: [id number] GILBERTO: 10/23/16 STATUS: COMP REQ #: [id number] RECD: 10/23/[address]: Reta Alberto PA-C SOURCE: BLOOD ENTR: 10/23/[address] [facility] DR: Ant Fair D.O. SPDESC: Prasanna Car D.O. Bell, Evan T MD Datta, Manabendra, M.D. Heaton, Fred M. D.O. Sumner, Sabrina M. , Abdirahman Blake D.O. Simoni, Eugene J., M.D. ORDERED: BLOOD CULTURE Procedure Result Verified Site BLD CULT Final 10/26/16-1046 Organism 1 STAPHYLOCOCCUS AUREUS SENS SENSITIVITY TO FOLLOW SENSITIVITY RESULT INDICATES A METHICILLIN RESISTANT STAPH. AUREUS. PHONED TO MARCIE NOWAK ON 10/26/16 AT 0812 BY Amber Hackett. Results were verbalized back to BRITANY. Phoned Positive Blood Culture Gram Stain Report to SHAR ROCHA on 10/24/16 At 0730 By MARK. Results were verbalized back to MARK. RESULTS WERE ALSO CALLED TO [facility] INFECTION CONTROL ANSWERING MACHINE ON 10/26/16 BY BRITANY. 1. STAPHYLOCOCCUS AUREUS Target Route Dose RX AB Cost M.I.C. IQ ------ ----- ------ -- ------ -------- - ------ TRIMET/SULFA S <=0.5/ 9.5 * OXACILLIN R * >2 VANCOMYCIN S 2 ERYTHROMYCIN R >4 TETRACYCLINE S <=4 CLINDAMYCIN S <=0.5 DAPTOMYCIN S 1 RIFAMPIN S <=1 S = SENSITIVE I = INTERMEDIATE R = RESISTANT Item Value Date Time Blood Culture Received 10/26/16 0830 Blood Pending Blood Culture Received 10/26/16 0825 Blood Pending Blood Culture - Preliminary Resulted 10/25/16 0715 Blood Staphylococcus Aureus Blood Culture - Preliminary Resulted 10/25/16 0710 Blood Staphylococcus Aureus Blood Culture - Final Complete 10/24/16 1029 Blood Staphylococcus Aureus Blood Culture - Final Complete 10/24/16 1015 Blood Staphylococcus Aureus Blood Culture - Final Complete 10/23/16 0947 Blood Staphylococcus Aureus Blood Culture - Final Complete 10/23/16 0940 Blood Staphylococcus Aureus Last 24 Hours Test 10/26/16 15:10 10/26/16 17:32 10/26/16 20:50 10/27/16 05:20 Activated Partial Thromboplast Time 47.1 SECONDS 43.4 SECONDS Partial Thromboplastin Ratio 1.8 1.7 Bedside Glucose 136 mg/dl 125 mg/dl White Blood Count 19.55 K/uL Red Blood Count 2.71 M/uL Hemoglobin 8.1 g/dL Hematocrit 23.8 % Mean Corpuscular Volume 87.8 fL Mean Corpuscular Hemoglobin 29.9 pg Mean Corpuscular Hemoglobin Concent 34.0 g/dl Platelet Count 757 K/uL Mean Platelet Volume 9.3 fL Neutrophils (%) (Auto) 73.0 % Lymphocytes (%) (Auto) 8.1 % Monocytes (%) (Auto) 5.6 % Eosinophils (%) (Auto) 6.5 % Basophils (%) (Auto) 0.5 % Neutrophils # (Auto) 14.26 K/uL Lymphocytes # (Auto) 1.59 K/uL Monocytes # (Auto) 1.09 K/uL Eosinophils # (Auto) 1.28 K/uL Basophils # (Auto) 0.09 K/uL RDW Standard Deviation 49.7 fL RDW Coefficient of Variation 15.4 % Immature Granulocyte % (Auto) 6.3 % Immature Granulocyte # (Auto) 1.24 K/uL Toxic Granulation 1+ Sodium Level 135 mmol/L Potassium Level 3.6 mmol/L Chloride Level 97 mmol/L Carbon Dioxide Level 29 mmol/L Anion Gap 9.0 mmol/L Blood Urea Nitrogen 8 mg/dl Creatinine 0.45 mg/dl Est Creatinine Clear Calc Drug Dose 142.1 ml/min Estimated GFR () 120.2 Estimated GFR (Non- 103.7 BUN/Creatinine Ratio 17.1 Random Glucose 146 mg/dl Calcium Level 7.2 mg/dl Test 10/27/16 06:54 10/27/16 11:26 10/27/16 13:16 10/27/16 13:48 Bedside Glucose 161 mg/dl 200 mg/dl Assessment and Plan Diabetic female with left septic TKA- now s/p I & D x 2, wound infection of the right lower extremity- now s/p right BKA, and MRSA bacteremia. RUBI showed no evidence of vegetation. She continues on Daptomycin- may consider increasing dose to 8-10 mg/kg tomorrow if her cultures continue to be positive. I ordered CPK level for the morning prior to increasing dose. Will follow repeat blood cultures. She will need extended antibiotic therapy. She cannot have PICC line placed until cultures clear. May consider the addition of Rifampin for this patient as well- will need to discuss with cardiology due to patient currently being on Diltiazem. We will follow. PROVIDER ADDENDUM: Patient reviewed with Ms. Alberto. Agree with above assessment.
[2016-10-27 22:08] LABS: PARTIAL THROMBOPLASTIN RATIO 1.7
[2016-10-27] MEDS ORDERED: HEPARIN IV BOLUS 3,000 UNIT in SYRINGE 0 ML IV STA (22:33)
--- NOTE | 2016-10-27 22:37 | Progress Note ---
Medicine Progress Note Date & Time of Visit: Oct 27, 2016 at 11:58. Subjective 66 yoF admitted for sepsis 2/2 infected L knee s/p recent arthoplasty and known recent amputations of R toes with bone exposure. She is s/p R BKA and has MRSA + bacteremia on Dapto Last 24h: -POD#5 R BKA POD#3 I&D of L knee with poly exchange -RUBI under anesthesia this morning -somewhat lethargic but responding appropriately -denies pain although pain was present on exam with minimal movement of LLE -denies nausea, chest pain or SOB and is otherwise asymptomatic at this time. Objective Last 8 Hrs Date Time Temp Pulse Resp B/P Pulse Ox O2 Delivery O2 Flow Rate FiO2 10/27/16 08:30 93 Nasal Cannula 2.0 10/27/16 08:18 36.8 89 15 149/84 93 Nasal Cannula 2.0 10/27/16 08:07 100 16 132/65 96 Nasal Cannula 2 10/27/16 07:57 89 16 147/72 96 Nasal Cannula 2 10/27/16 07:47 98 16 122/66 98 Nasal Cannula 4 10/27/16 07:47 92 16 142/82 96 Nasal Cannula 2 10/27/16 07:45 98 16 122/66 98 Nasal Cannula 4 10/27/16 07:43 96 16 122/59 96 Nasal Cannula 4 10/27/16 07:40 96 16 136/71 96 Nasal Cannula 4 10/27/16 07:35 95 16 134/63 96 Nasal Cannula 4 10/27/16 07:33 109 16 134/63 95 Nasal Cannula 4 10/27/16 07:32 109 16 134/63 95 Nasal Cannula 4 10/27/16 07:30 109 16 154/74 95 Nasal Cannula 4 10/27/16 06:58 36.8 113 19 166/76 94 Room Air Physical Exam: GEN: Obese, in no acute distress, sleepy from anesthesia but easily arousable, alert and appropriate HEENT: NC/AT, normal sclerae CARDIO: reg rate, S1/2 heard without m/g/r LUNGS: CTA bilaterally, no crackles, rales or wheezes, good diaphragmatic excursion ABD: soft, non-tender, non-distended, no rebound or guarding,+BS EXTREMITY: LLE NVI, wrapping to L knee area that is c/d/i. RLE amputated below the knee with dressing on stump that is c/d/i NEURO: no gross focal deficits MUSC: can roll in bed but not easily assessed 2/2 sleepiness and post-op pain SKIN: warm and dry, Stage II wounds on buttock either side approx 4x2cm. Optifoam in place and is on EHOB mattress Laboratory Results: 10/27/16 05:20 Red Blood Count 2.71, Mean Corpuscular Volume 87.8, Mean Corpuscular Hemoglobin 29.9, Mean Corpuscular Hemoglobin Concent 34.0, Mean Platelet Volume 9.3, Neutrophils (%) (Auto) 73.0, Lymphocytes (%) (Auto) 8.1, Monocytes (%) (Auto) 5.6, Eosinophils (%) (Auto) 6.5, Basophils (%) (Auto) 0.5, Neutrophils # (Auto) 14.26, Lymphocytes # (Auto) 1.59, Monocytes # (Auto) 1.09, Eosinophils # (Auto) 1.28, Basophils # (Auto) 0.09 10/27/16 05:20 Test 10/19/16 22:40 10/20/16 05:45 10/20/16 08:25 10/20/16 16:23 Polychromasia 1+ Hepatitis C Antibody Screen NEG (NEG) Erythrocyte Sedimentation Rate 20 mm/hr (0-21) Estimated Average Glucose 174 mg/dl Hemoglobin A1c 7.7 % (4.5-5.6) C-Reactive Protein 41.00 mg/dl (0-0.29) Thyroid Stimulating Hormone (TSH) 0.610 uIu/ml (0.300-4.500) Body Fluid Source KNEE LEFT Body Fluid Color REDISH Body Fluid Appearance CLOUDY Body Fluid WBC 192916 /uL Body Fluid RBC 941724 /uL Body Fluid Polynuclear WBCs 65.1 % Body Fluid Polynuclear WBCs (%) 65.1 % Body Fluid Mononuclear WBCs (%) 34.9 % Body Fluid Mononuclear Cells 34.9 % Absolute Reticulocyte Count 0.04 10^6/uL (0.02-0.10) Percent Reticulocyte Count 1.6 % (0.5-2.0) Iron Level 14 mcg/dl (35-150) Total Iron Binding Capacity 83 mcg/dl (250-450) Transferrin 66 mg/dl (200-360) Transferrin % Saturation 15 % (15-50) Ferritin 664.3 ng/ml (8.0-388.0) Lactate Dehydrogenase 172 U/L (84-246) Test 10/20/16 17:22 10/21/16 00:25 10/21/16 06:35 10/21/16 11:00 Haptoglobin 665 MG/DL (43-212) Procalcitonin 11.77 ng/mL (0-0.5) Random Cortisol 44.05 mcg/dl Dohle Bodies 1+ Lactic Acid Level 0.9 mmol/L (0.4-2.0) Phosphorus Level 1.6 mg/dl (2.5-4.9) Magnesium Level 2.1 mg/dl (1.8-2.4) Stool Occult Blood NEGATIVE (NEGATIVE) Test 10/21/16 20:14 10/22/16 03:30 10/23/16 06:01 10/24/16 05:25 Prothrombin Time 12.1 SECONDS (9.0-12.0) Prothromb Time International Ratio 1.1 (0.9-1.1) Red Blood Cell Morphology Unremarkable Neutrophils % (Manual) 81.9 % Lymphocytes % (Manual) 6.0 % Monocytes % (Manual) 4.3 % Eosinophils % (Manual) 4.3 % Metamyelocytes % 2.6 % Myelocytes % 0.9 % Neutrophils # (Manual) 10.88 K/uL (1.4-6.5) Total Absolute Neutrophils 10.88 K/uL (1.4-6.5) Lymphocytes # (Manual) 0.80 K/uL (1.2-3.4) Total Absolute Lymphocytes 0.80 K/uL (1.2-3.4) Monocytes # (Manual) 0.57 K/uL (0.11-0.59) Eosinophils # (Manual) 0.57 K/uL (0-0.5) Metamyelocytes # 0.35 K/uL (0-0) Myelocytes # 0.12 K/uL (0-0) Large Platelets 1+ Anisocytosis PRESENT Total Bilirubin 0.3 mg/dl (0.2-1) Aspartate Amino Transf (AST/SGOT) 15 U/L (15-37) Alanine Aminotransferase (ALT/SGPT) 12 U/L (12-78) Alkaline Phosphatase 94 U/L (45-117) Total Protein 5.4 gm/dl (6.4-8.2) Albumin 1.1 gm/dl (3.4-5.0) Globulin 4.3 gm/dl (2.5-4.0) Albumin/Globulin Ratio 0.3 (0.9-2) Nucleated RBC Absolute Count (auto) 0.02 K/uL (0-0) Nucleated Red Blood Cells % 0.1 % Test 10/24/16 08:30 10/27/16 05:20 10/27/16 11:26 Bedside Hemoglobin 9.2 g/dl (12.0-16.0) Bedside Hematocrit 27 % (37-47) Bedside Sodium 134 mEq/L (135-144) Bedside Potassium 4.3 mEq/L (3.3-5.0) Bedside Chloride 97 mEq/L (101-112) Bedside Total CO2 25 mEq/l (24-31) Bedside Blood Urea Nitrogen 9 mg/dl (7-18) Bedside Creatinine 0.5 mg/dl (0.6-1.3) Bedside Glucose (other) 151 mg/dl (70-99) Bedside Ionized Calcium (Ricci) 1.00 mmol/l (1.12-1.32) White Blood Count 19.55 K/uL (4.8-10.8) Red Blood Count 2.71 M/uL (4.2-5.4) Hemoglobin 8.1 g/dL (12.0-16.0) Hematocrit 23.8 % (37-47) Mean Corpuscular Volume 87.8 fL (80-100) Mean Corpuscular Hemoglobin 29.9 pg (25-34) Mean Corpuscular Hemoglobin Concent 34.0 g/dl (32-36) Platelet Count 757 K/uL (130-400) Mean Platelet Volume 9.3 fL (7.4-10.4) Neutrophils (%) (Auto) 73.0 % Lymphocytes (%) (Auto) 8.1 % Monocytes (%) (Auto) 5.6 % Eosinophils (%) (Auto) 6.5 % Basophils (%) (Auto) 0.5 % Neutrophils # (Auto) 14.26 K/uL (1.4-6.5) Lymphocytes # (Auto) 1.59 K/uL (1.2-3.4) Monocytes # (Auto) 1.09 K/uL (0.11-0.59) Eosinophils # (Auto) 1.28 K/uL (0-0.5) Basophils # (Auto) 0.09 K/uL (0-0.2) RDW Standard Deviation 49.7 fL (36.4-46.3) RDW Coefficient of Variation 15.4 % (11.5-14.5) Immature Granulocyte % (Auto) 6.3 % Immature Granulocyte # (Auto) 1.24 K/uL (0.00-0.02) Toxic Granulation 1+ Activated Partial Thromboplast Time 43.4 SECONDS (21.0-31.0) Partial Thromboplastin Ratio 1.7 Anion Gap 9.0 mmol/L (3-11) Est Creatinine Clear Calc Drug Dose 142.1 ml/min Estimated GFR () 120.2 Estimated GFR (Non- 103.7 BUN/Creatinine Ratio 17.1 (10-20) Calcium Level 7.2 mg/dl (8.5-10.1) Bedside Glucose 200 mg/dl (70-90) Date/Time Source Procedure Growth Status 10/26/16 08:30 Blood Blood Culture Pending Received 10/21/16 12:30 Joint Fluid/Space (Synovial) Knee Left Gram Stain - Final Complete 10/21/16 12:30 Bacterial Culture - Final Staphylococcus Aureus Complete 10/20/16 00:00 Nasal MRSA DNA Surveillance Screen - Final Specimen Positive for MRSA by DNA Probe Complete 10/20/16 00:00 Ulcer Foot Right Gram Stain - Final Complete 10/20/16 00:00 Wound Culture - Final Staphylococcus Aureus Complete Last 24 Hours Test 10/26/16 15:10 10/26/16 17:32 10/26/16 20:50 10/27/16 05:20 Activated Partial Thromboplast Time 47.1 SECONDS 43.4 SECONDS Partial Thromboplastin Ratio 1.8 1.7 Bedside Glucose 136 mg/dl 125 mg/dl White Blood Count 19.55 K/uL Red Blood Count 2.71 M/uL Hemoglobin 8.1 g/dL Hematocrit 23.8 % Mean Corpuscular Volume 87.8 fL Mean Corpuscular Hemoglobin 29.9 pg Mean Corpuscular Hemoglobin Concent 34.0 g/dl Platelet Count 757 K/uL Mean Platelet Volume 9.3 fL Neutrophils (%) (Auto) 73.0 % Lymphocytes (%) (Auto) 8.1 % Monocytes (%) (Auto) 5.6 % Eosinophils (%) (Auto) 6.5 % Basophils (%) (Auto) 0.5 % Neutrophils # (Auto) 14.26 K/uL Lymphocytes # (Auto) 1.59 K/uL Monocytes # (Auto) 1.09 K/uL Eosinophils # (Auto) 1.28 K/uL Basophils # (Auto) 0.09 K/uL RDW Standard Deviation 49.7 fL RDW Coefficient of Variation 15.4 % Immature Granulocyte % (Auto) 6.3 % Immature Granulocyte # (Auto) 1.24 K/uL Toxic Granulation 1+ Sodium Level 135 mmol/L Potassium Level 3.6 mmol/L Chloride Level 97 mmol/L Carbon Dioxide Level 29 mmol/L Anion Gap 9.0 mmol/L Blood Urea Nitrogen 8 mg/dl Creatinine 0.45 mg/dl Est Creatinine Clear Calc Drug Dose 142.1 ml/min Estimated GFR () 120.2 Estimated GFR (Non- 103.7 BUN/Creatinine Ratio 17.1 Random Glucose 146 mg/dl Calcium Level 7.2 mg/dl Test 10/27/16 06:54 10/27/16 11:26 Bedside Glucose 161 mg/dl 200 mg/dl Assessment & Plan 66 yoF admitted for sepsis 2/2 infected L knee s/p recent arthoplasty and known recent amputations of R toes with bone exposure. She is s/p R BKA and has MRSA + bacteremia on Dapto 1. MRSA Bacteremia 2/2 L knee infection s/p washout. Post-op pain appears controlled. Pt had left total knee replacement done in 04/2000 s/p I and D of left TKA this admission; cx mrsa from I and D.and blood cx mrsa; hemodynamics stable currently. currently only on daptomycin; repeat cx mrsa; duration of abx as per ID; has central line; plan for picc line when blood cx negative; s/p RUBI this am 2. PVD with subsequent R BKA on 10/22/16 for infection of right foot with osteomyelitis. 3. DVT- bilateral lower extremity, s/p IVC filter by vascular surgery 4. Afib- RVR on initial presentation with sepsis--controlled with IV Cardizem. Ccont PO Cardizem and IV heparin 5. Anemia- multifactorial 2/2 acute blood loss anemia, daily phlebotomy and chronic disease. She has required 4 units blood this admission. Monitor CBC periodically. 6. DMII-holding oral meds, cont Lantus and ISS; appreciate glycemic pharmacist recs. 7 Thrombocytosis-likely reactive in setting of recent surgery and active infection 8. Leukocytosis-see #7 FULL CODE DVT PROPHYLAXIS: heparin DO Jazz Mckeon Hospitalist Continued [facility] stay due to: multiple IV medications needed Discharge planning: uncertain Consultants: Cardiology, Infectious Disease, Ortho Current Inpatient Medications: Current Inpatient Medications Medications (Trade) Dose Ordered Sig/Denisse Route Start Time Stop Time Status Last Admin Dose Admin Acetaminophen (Tylenol Tab) 650 mg Q4H PRN PO 10/19/16 22:00 11/18/16 21:59 Glucose (Glucose 40% Gel) 15-30 GRAMS 15 GRAMS... UD PRN PO 10/19/16 22:15 11/18/16 22:14 Glucose (Glucose Chew Tab) 4-8 Tablets 4 Tabl... UD PRN PO 10/19/16 22:15 11/18/16 22:14 Dextrose (Dextrose 50% 50ML Syringe) 25-50ML OF 50% DW IV FOR... UD PRN IV 10/19/16 22:15 11/18/16 22:14 Glucagon (Glucagon Inj) 1 mg UD PRN SQ 10/19/16 22:15 11/18/16 22:14 Ondansetron HCl (Zofran Inj) 4 mg Q4H PRN IV 10/19/16 22:45 11/18/16 22:44 Hydromorphone HCl (Dilaudid Inj) 0.2 mg Q4H PRN IV 10/19/16 22:45 11/02/16 22:44 10/24/16 18:14 0.2 MG Diltiazem HCl (Cardizem Cd Cap) 240 mg DAILY PO 10/20/16 09:00 11/19/16 08:59 Future hold 10/26/16 08:37 240 MG Acetaminophen/ Hydrocodone Bitart ([place] 5/325 Tab) 1 tab Q4H PRN PO 10/19/16 23:00 11/02/16 22:59 10/25/16 19:33 1 TAB Nystatin 1 appln BID EXT 10/21/16 21:00 11/20/16 20:59 10/27/16 08:13 1 APPLN Dexamethasone 3.75 mg/Nystatin 30 ml/ Diphenhydramine HCl 300 mg/ Sucrose 45 ml/ Microcrystalline Cellulose 45 ml/ Barcode 1 ea swish in mouth and spit ... BID PRN PO 10/21/16 11:15 11/20/16 11:14 10/22/16 11:13 5 ML Daptomycin/Sodium Chloride (Cubicin IV/Nss 50ml) 62 ml @ 100 mls/hr DAILY@1200 IV 10/22/16 12:00 11/05/16 11:59 10/27/16 11:30 100 MLS/HR Insulin Glargine (Lantus Solostar Pen) 18 unit BID SC 10/22/16 21:00 11/21/16 20:59 10/27/16 08:15 18 UNIT Pantoprazole Sodium 40 mg 40 mg QAM PO 10/25/16 09:00 11/24/16 08:59 10/26/16 08:37 40 MG Heparin Sodium/ Dextrose (Heparin 25,000 Unit/500ml D5W) 500 ml @ 20 mls/hr Q24H PRN IV 10/24/16 16:00 11/23/16 15:59 10/27/16 08:23 20 MLS/HR Insulin Aspart (novoLOG ASPART) SLIDING SCALE G... ACHS SC 10/27/16 12:00 11/26/16 11:59
[2016-10-28] VITALS (9 sets, daily range): BP systolic 103–146; BP diastolic 62–77; PULSE 81–125; TEMP 36.4–37; O2SAT 94–99
[2016-10-28] MEDS: HEPARIN 25,000 UNIT/500ML D5W 500 ML IV PRN ×3 (03:05→08:20)
[2016-10-28] MEDS: HYDROCODONE/ACETAMOPHEN 5/325MG TAB PO PRN ×2 (05:29→22:12)
[2016-10-28 05:50] LABS: HEMATOCRIT 24.9 % (37-47); MEAN CELL VOLUME 88.9 fL (80-100); MEAN CORPUSCULAR HGB CONC 33.7 g/dl (32-36); PLATELET COUNT 906 K/uL (130-400); WHITE BLOOD COUNT 17.59 K/uL (4.8-10.8)
[2016-10-28 06:04] LABS: PARTIAL THROMBOPLASTIN RATIO 1.8
[2016-10-28 06:27] LABS: BUN/CREATININE RATIO 14.8 (10-20); CALCIUM 7.8 mg/dl (8.5-10.1); CREATININE 0.44 mg/dl (0.60-1.20); MAGNESIUM 1.4 mg/dl (1.8-2.4); POTASSIUM 3.5 mmol/L (3.5-5.1)
[2016-10-28] MEDS ORDERED: HEPARIN IV BOLUS 3,000 UNIT in SYRINGE 0 ML IV ONE (07:45)
--- NOTE | 2016-10-28 07:59 | Anesthesiology Progress Note ---
Anesthesia Post Op Note Date & Time Oct 28, 2016 at 07:58 Vital Signs Pain Intensity: 0.0 Vital Signs Past 12 Hours Date Time Temp Pulse Resp B/P Pulse Ox O2 Delivery O2 Flow Rate FiO2 10/28/16 07:01 36.8 125 19 146/72 94 Room Air 2.0 10/28/16 00:20 85 10/28/16 00:20 Nasal Cannula 2.0 10/27/16 23:01 36.6 121 20 149/90 95 Nasal Cannula 2.0 Notes Mental Status: alert / awake / arousable, participated in evaluation Pt Amnestic to Procedure: Yes Nausea / Vomiting: adequately controlled Pain: adequately controlled Airway Patency, RR, SpO2: stable & adequate BP & HR: stable & adequate Hydration State: stable & adequate Anesthetic Complications: no major complications apparent
[2016-10-28 08:43] LABS: BASO % 0.3 %; BASO ABS # 0.06 K/uL (0-0.2); COMPLETE YES; EOS % 3.3 %; IG% 4.6 %; LYMPH % 8.4 %; LYMPH ABS # 1.47 K/uL (1.2-3.4); NEUT % 77.4 %
[2016-10-28] MEDS: INSULIN ASPART 100 UNITS/ML 3 ML PEN SC SCH ×4 (09:27→21:00)
[2016-10-28] MEDS: INSULIN GLARGINE SOLOSTAR 100 UNITS/ML 3 ML PEN SC SCH ×2 (09:28→21:07)
[2016-10-28] MEDS: NYSTATIN POWDER 15GM BTL EXT SCH ×2 (09:29→19:52)
--- NOTE | 2016-10-28 09:31 | Orthopedic Progress Note ---
Orthopedic Progress Note Date of Service Oct 28, 2016. Subjective Post OP Day: 4 (s/p I&D and poly exchange) Reports: feeling well, pain controlled w PO medications, Denies: SOB, chest pain , complaints, light headedness, nausea / vomiting Objective dressing clean dry and intact to right BKA. l Left knee- wound vac in place, no erythema. able to wiggle toes, sensation intact distally Date Time Temp Pulse Resp B/P Pulse Ox O2 Delivery O2 Flow Rate FiO2 10/28/16 07:01 36.8 125 19 146/72 94 Room Air 2.0 10/28/16 00:20 85 10/28/16 00:20 Nasal Cannula 2.0 10/27/16 23:01 36.6 121 20 149/90 95 Nasal Cannula 2.0 10/27/16 19:35 Nasal Cannula 2.0 10/27/16 15:10 37.3 108 16 130/73 91 Room Air Laboratory Results 24 Hours: Test 10/28/16 05:34 White Blood Count 17.59 K/uL Red Blood Count 2.80 M/uL Hemoglobin 8.4 g/dL Hematocrit 24.9 % Mean Corpuscular Volume 88.9 fL Mean Corpuscular Hemoglobin 30.0 pg Mean Corpuscular Hemoglobin Concent 33.7 g/dl Platelet Count 906 K/uL Mean Platelet Volume 9.0 fL Neutrophils (%) (Auto) 77.4 % Lymphocytes (%) (Auto) 8.4 % Monocytes (%) (Auto) 6.0 % Eosinophils (%) (Auto) 3.3 % Basophils (%) (Auto) 0.3 % Neutrophils # (Auto) 13.62 K/uL Lymphocytes # (Auto) 1.47 K/uL Monocytes # (Auto) 1.05 K/uL Eosinophils # (Auto) 0.58 K/uL Basophils # (Auto) 0.06 K/uL Assessment & Plan Assessment: POD #5 s/p right BKA POD #3 s/p Left TKA I&D w/ poly exchange and Anbx beads DVT bilateral lower extremity, ivc filter placed by dr steward on 10/21/16 AFIB RVR : appreciate input form Cardiology ANEMIA-improved TYPE 2 DM : holding oral meds insulin SSI /basal Lantus pharmacy consulted for glycemic control Plan: Left Septic TKA- sp I&D x 2 with I&D and poly exchange on Thursday10/24/16. Had RUBI showing no evidence of vegetation. Currently on Daptomycin, ID considering increase in dose today pending cultures. Unable to do PICC until cultures clear. Also possibility of adding Rifampin. Otherwise will leave Prevena on for 7 days Discharge Planning Discharge Planning: uncertain
[2016-10-28] MEDS: DILTIAZEM HCL 240 MG CAPCR PO SCH (09:34)
[2016-10-28] MEDS: PANTOprazole SOD 40 MG TAB PO SCH (09:34)
[2016-10-28] MEDS: MAGNESIUM SULFATE 1GM / D5W 1 GM in PREMIXED IN D5W 100 ML IV SCH ×4 (11:12→14:37)
--- NOTE | 2016-10-28 11:33 | Infectious Disease Progress Nt ---
Progress Note Date of Service Oct 28, 2016. Subjective Pt evaluation today including: conversation w/ patient, physical exam, chart review, lab review, review of studies, conversation w/ clinical services consultant, review of inpatient medication list Patient offers no new complaints today. Remains afebrile. Tolerating antibiotics. Follow-up blood cultures no growth to date. All Other Systems: Reviewed and Negative Medications Current Inpatient Medications Medications (Trade) Dose Ordered Sig/Denisse Route Start Time Stop Time Status Last Admin Dose Admin Acetaminophen (Tylenol Tab) 650 mg Q4H PRN PO 10/19/16 22:00 11/18/16 21:59 Glucose (Glucose 40% Gel) 15-30 GRAMS 15 GRAMS... UD PRN PO 10/19/16 22:15 11/18/16 22:14 Glucose (Glucose Chew Tab) 4-8 Tablets 4 Tabl... UD PRN PO 10/19/16 22:15 11/18/16 22:14 Dextrose (Dextrose 50% 50ML Syringe) 25-50ML OF 50% DW IV FOR... UD PRN IV 10/19/16 22:15 11/18/16 22:14 Glucagon (Glucagon Inj) 1 mg UD PRN SQ 10/19/16 22:15 11/18/16 22:14 Ondansetron HCl (Zofran Inj) 4 mg Q4H PRN IV 10/19/16 22:45 11/18/16 22:44 Hydromorphone HCl (Dilaudid Inj) 0.2 mg Q4H PRN IV 10/19/16 22:45 11/02/16 22:44 10/24/16 18:14 0.2 MG Diltiazem HCl (Cardizem Cd Cap) 240 mg DAILY PO 10/20/16 09:00 11/19/16 08:59 Future hold 10/29/16 09:03 240 MG Acetaminophen/ Hydrocodone Bitart ([place] 5/325 Tab) 1 tab Q4H PRN PO 10/19/16 23:00 11/02/16 22:59 10/29/16 21:39 1 TAB Nystatin 1 appln BID EXT 10/21/16 21:00 11/20/16 20:59 10/29/16 21:28 1 APPLN Dexamethasone 3.75 mg/Nystatin 30 ml/ Diphenhydramine HCl 300 mg/ Sucrose 45 ml/ Microcrystalline Cellulose 45 ml/ Barcode 1 ea swish in mouth and spit ... BID PRN PO 10/21/16 11:15 11/20/16 11:14 10/22/16 11:13 5 ML Daptomycin/Sodium Chloride (Cubicin IV/Nss 50ml) 62 ml @ 100 mls/hr DAILY@1200 IV 10/22/16 12:00 11/09/16 23:59 10/29/16 12:00 100 MLS/HR Insulin Glargine (Lantus Solostar Pen) 18 unit BID SC 10/22/16 21:00 11/21/16 20:59 10/29/16 21:30 18 UNIT Pantoprazole Sodium (Protonix Tab) 40 mg QAM PO 10/25/16 09:00 11/24/16 08:59 10/29/16 09:03 40 MG Insulin Aspart (novoLOG ASPART) SLIDING SCALE G... ACHS SC 10/27/16 12:00 11/26/16 11:59 10/29/16 21:29 5 UNITS Metoprolol Tartrate (Lopressor Tab) 25 mg BID PO 10/29/16 21:00 11/28/16 20:59 10/29/16 21:28 25 MG Enoxaparin Sodium (Lovenox Inj) 40 mg QAM SQ 10/30/16 09:00 11/29/16 08:59 Heparin Sodium (Porcine) (Heparin 10 Unit/ ml 5 ml Flush) 5 ml PRN PRN FLUSH 10/29/16 15:30 11/28/16 15:29 10/29/16 18:01 5 ML Objective Vital Signs Date Time Temp Pulse Resp B/P Pulse Ox O2 Delivery O2 Flow Rate FiO2 10/28/16 10:50 97 10/28/16 08:20 Room Air 10/28/16 07:01 36.8 125 19 146/72 94 Room Air 2.0 10/28/16 00:20 85 10/28/16 00:20 Nasal Cannula 2.0 10/27/16 23:01 36.6 121 20 149/90 95 Nasal Cannula 2.0 10/27/16 19:35 Nasal Cannula 2.0 10/27/16 15:10 37.3 108 16 130/73 91 Room Air Physical Exam General Appearance: WD/WN, no apparent distress Eyes: normal inspection, EOMI, sclerae normal ENT: normal ENT inspection, pharynx normal Neck: supple, no adenopathy, trachea midline Respiratory/Chest: lungs clear, normal breath sounds, no respiratory distress Cardiovascular: regular rate, rhythm, no gallop, no murmur Abdomen: normal bowel sounds, non tender, soft, no organomegaly Extremities: non-tender Neurologic/Psychiatric: alert, oriented x 3 Skin: normal color, warm/dry, no rash Laboratory Results Item Value Date Time Blood Culture - Preliminary Resulted 10/26/16 0830 Blood NO GROWTH TO DATE. Blood Culture - Preliminary Resulted 10/26/16 0825 Blood NO GROWTH TO DATE. Blood Culture - Preliminary Resulted 10/25/16 0715 Blood Staphylococcus Aureus Blood Culture - Preliminary Resulted 10/25/16 0710 Blood Staphylococcus Aureus Last 24 Hours Test 10/27/16 14:45 10/27/16 17:23 10/27/16 21:00 10/27/16 21:48 Activated Partial Thromboplast Time 45.1 SECONDS 44.0 SECONDS Partial Thromboplastin Ratio 1.7 1.7 Bedside Glucose 206 mg/dl 220 mg/dl Test 10/28/16 04:44 10/28/16 05:34 10/28/16 06:59 White Blood Count 17.59 K/uL Red Blood Count 2.80 M/uL Hemoglobin 8.4 g/dL Hematocrit 24.9 % Mean Corpuscular Volume 88.9 fL Mean Corpuscular Hemoglobin 30.0 pg Mean Corpuscular Hemoglobin Concent 33.7 g/dl Platelet Count 906 K/uL Mean Platelet Volume 9.0 fL Neutrophils (%) (Auto) 77.4 % Lymphocytes (%) (Auto) 8.4 % Monocytes (%) (Auto) 6.0 % Eosinophils (%) (Auto) 3.3 % Basophils (%) (Auto) 0.3 % Neutrophils # (Auto) 13.62 K/uL Lymphocytes # (Auto) 1.47 K/uL Monocytes # (Auto) 1.05 K/uL Eosinophils # (Auto) 0.58 K/uL Basophils # (Auto) 0.06 K/uL RDW Standard Deviation 50.1 fL RDW Coefficient of Variation 15.4 % Immature Granulocyte % (Auto) 4.6 % Immature Granulocyte # (Auto) 0.81 K/uL Nucleated RBC Absolute Count (auto) 0.02 K/uL Nucleated Red Blood Cells % 0.1 % Red Blood Cell Morphology Unremarkable Activated Partial Thromboplast Time 45.6 SECONDS Partial Thromboplastin Ratio 1.8 Sodium Level 135 mmol/L Potassium Level 3.5 mmol/L Chloride Level 95 mmol/L Carbon Dioxide Level 29 mmol/L Anion Gap 11.0 mmol/L Blood Urea Nitrogen 7 mg/dl Creatinine 0.44 mg/dl Est Creatinine Clear Calc Drug Dose 145.3 ml/min Estimated GFR () 121.1 Estimated GFR (Non- 104.5 BUN/Creatinine Ratio 14.8 Random Glucose 196 mg/dl Calcium Level 7.8 mg/dl Magnesium Level 1.4 mg/dl Bedside Glucose 199 mg/dl Assessment and Plan Diabetic female with left septic TKA- now s/p I & D x 2, wound infection of the right lower extremity- now s/p right BKA, and MRSA bacteremia. RUBI showed no evidence of vegetation. She continues on Daptomycin. Her most recent blood cultures are showing no growth to date. Recommend waiting until tomorrow to see if these continue to be negative prior to PICC line placement. Will continue at current Daptomycin dose. She will likely need 6 weeks of abx from first negative blood culture. We will continue to follow. PROVIDER ADDENDUM: Patient reviewed with Ms. Alberto. Agree with above assessment.
[2016-10-28] MEDS: DAPTOmycin IV 600 MG in SODIUM CHLORIDE 0.9% 50ML 50 ML IV SCH (11:51)
[2016-10-28 14:29] LABS: PARTIAL THROMBOPLASTIN RATIO 1.9
--- NOTE | 2016-10-28 16:09 | PROGRESS NOTE ---
DATE: 10/28/2016 FOLLOWUP VISIT SUBJECTIVE: The patient is a 66-year-old female who has a history of osteomyelitis, status post right BKA and septic left knee with surgery for debridement. The patient was septic at the time of admission. A RUBI was completed 2 days ago that failed to show any evidence of endocarditis. The patient's blood cultures on repeat now are showing no growth. The patient has been moved to telemetry due to a history of PAF and frequent atrial arrhythmias. She has no complaints. She is currently in sinus rhythm with frequent PACs. OBJECTIVE: GENERAL: She is alert and oriented, in no acute distress. VITAL SIGNS: Blood pressure is 128/73, pulse is irregular at 110 beats per minute. She is afebrile. HEENT: She is normocephalic. Pupils are equal and reactive to light. Extraocular muscles are intact bilaterally. NECK: The neck veins are flat. Carotids have good upstrokes bilaterally without bruits. Thyroid is nonpalpable. RESPIRATORY: Breath sounds equal bilaterally and clear to auscultation. CARDIOVASCULAR: Heart has regular rhythm. Normal S1, S2. No S3, S4. No cardiac rubs or murmurs. GASTROINTESTINAL: Abdomen is soft, nontender without organomegaly. EXTREMITIES: The patient has a right BKA. NEUROLOGIC: Grossly intact. SKIN: Warm to touch. LYMPH NODES: Negative to palpation. LABORATORY DATA: WBC count is 17.59; magnesium is 1.4 and is being supplemented, potassium is 3.5. IMPRESSION: 1. History of systemic inflammatory response syndrome. 2. Bacteremia with staph aureus. 3. Status post right below knee amputation for osteomyelitis and septic left knee with debridement. 4. Negative RUBI for endocarditis. 5. Paroxysmal atrial arrhythmias. RECOMMENDATIONS: While the patient is on telemetry, I will add a low dose beta jodie. The patient is having brief runs of PAT on the telemetry and I am concerned that she may develop atrial fibrillation. We can continue the diltiazem for now. We will continue to follow the patient.
[2016-10-28] MEDS: METOPROLOL TARTRATE 25 MG TAB PO SCH (19:53)
--- NOTE | 2016-10-28 23:37 | Progress Note ---
Medicine Progress Note Date & Time of Visit: Oct 28, 2016 at 1700. Subjective Pt was up and eating solids in bed Denies any pain today Appears clinically well compared to yest Plan for PICC tmrw per ID who saw her Plan for adding metoprolol in addition to Cardizem -->moved her on telemetry for accurate heart arrythmias Cont heparin infusion for now until definitive diagnosis. Objective Last 8 Hrs Date Time Temp Pulse Resp B/P Pulse Ox O2 Delivery O2 Flow Rate FiO2 10/28/16 20:00 Nasal Cannula 2.0 10/28/16 19:50 36.4 111 18 103/63 98 Nasal Cannula 3.0 10/28/16 16:00 Nasal Cannula 2.0 10/28/16 15:48 37.0 91 16 124/77 98 Nasal Cannula 3.0 Physical Exam: GEN: Obese, in no acute distress, alert and appropriate HEENT: NC/AT, normal sclerae CARDIO: reg rate, S1/2 heard without m/g/r LUNGS: CTA bilaterally, no crackles, rales or wheezes, good diaphragmatic excursion ABD: soft, non-tender, non-distended, no rebound or guarding,+BS EXTREMITY: LLE NVI, wrapping to L knee area that is c/d/i (wound vac in place). RLE amputated below the knee with dressing on stump that is c/d/i NEURO: no gross focal deficits MUSC: moves all extremities equally SKIN: warm and dry, Stage II wounds on buttock either side approx 4x2cm. Optifoam in place and is on EHOB mattress Laboratory Results: 10/28/16 05:34 Red Blood Count 2.80, Mean Corpuscular Volume 88.9, Mean Corpuscular Hemoglobin 30.0, Mean Corpuscular Hemoglobin Concent 33.7, Mean Platelet Volume 9.0, Neutrophils (%) (Auto) 77.4, Lymphocytes (%) (Auto) 8.4, Monocytes (%) (Auto) 6.0, Eosinophils (%) (Auto) 3.3, Basophils (%) (Auto) 0.3, Neutrophils # (Auto) 13.62, Lymphocytes # (Auto) 1.47, Monocytes # (Auto) 1.05, Eosinophils # (Auto) 0.58, Basophils # (Auto) 0.06 10/28/16 05:34 Test 10/19/16 22:40 10/20/16 05:45 10/20/16 08:25 10/20/16 16:23 Polychromasia 1+ Hepatitis C Antibody Screen NEG (NEG) Erythrocyte Sedimentation Rate 20 mm/hr (0-21) Estimated Average Glucose 174 mg/dl Hemoglobin A1c 7.7 % (4.5-5.6) C-Reactive Protein 41.00 mg/dl (0-0.29) Thyroid Stimulating Hormone (TSH) 0.610 uIu/ml (0.300-4.500) Body Fluid Source KNEE LEFT Body Fluid Color REDISH Body Fluid Appearance CLOUDY Body Fluid WBC 565453 /uL Body Fluid RBC 026276 /uL Body Fluid Polynuclear WBCs 65.1 % Body Fluid Polynuclear WBCs (%) 65.1 % Body Fluid Mononuclear WBCs (%) 34.9 % Body Fluid Mononuclear Cells 34.9 % Absolute Reticulocyte Count 0.04 10^6/uL (0.02-0.10) Percent Reticulocyte Count 1.6 % (0.5-2.0) Iron Level 14 mcg/dl (35-150) Total Iron Binding Capacity 83 mcg/dl (250-450) Transferrin 66 mg/dl (200-360) Transferrin % Saturation 15 % (15-50) Ferritin 664.3 ng/ml (8.0-388.0) Lactate Dehydrogenase 172 U/L (84-246) Test 10/20/16 17:22 10/21/16 00:25 10/21/16 06:35 10/21/16 11:00 Haptoglobin 665 MG/DL (43-212) Procalcitonin 11.77 ng/mL (0-0.5) Random Cortisol 44.05 mcg/dl Dohle Bodies 1+ Lactic Acid Level 0.9 mmol/L (0.4-2.0) Phosphorus Level 1.6 mg/dl (2.5-4.9) Stool Occult Blood NEGATIVE (NEGATIVE) Test 10/21/16 20:14 10/23/16 06:01 10/24/16 08:30 10/27/16 05:20 Prothrombin Time 12.1 SECONDS (9.0-12.0) Prothromb Time International Ratio 1.1 (0.9-1.1) Neutrophils % (Manual) 81.9 % Lymphocytes % (Manual) 6.0 % Monocytes % (Manual) 4.3 % Eosinophils % (Manual) 4.3 % Metamyelocytes % 2.6 % Myelocytes % 0.9 % Neutrophils # (Manual) 10.88 K/uL (1.4-6.5) Total Absolute Neutrophils 10.88 K/uL (1.4-6.5) Lymphocytes # (Manual) 0.80 K/uL (1.2-3.4) Total Absolute Lymphocytes 0.80 K/uL (1.2-3.4) Monocytes # (Manual) 0.57 K/uL (0.11-0.59) Eosinophils # (Manual) 0.57 K/uL (0-0.5) Metamyelocytes # 0.35 K/uL (0-0) Myelocytes # 0.12 K/uL (0-0) Large Platelets 1+ Anisocytosis PRESENT Total Bilirubin 0.3 mg/dl (0.2-1) Aspartate Amino Transf (AST/SGOT) 15 U/L (15-37) Alanine Aminotransferase (ALT/SGPT) 12 U/L (12-78) Alkaline Phosphatase 94 U/L (45-117) Total Protein 5.4 gm/dl (6.4-8.2) Albumin 1.1 gm/dl (3.4-5.0) Globulin 4.3 gm/dl (2.5-4.0) Albumin/Globulin Ratio 0.3 (0.9-2) Bedside Hemoglobin 9.2 g/dl (12.0-16.0) Bedside Hematocrit 27 % (37-47) Bedside Sodium 134 mEq/L (135-144) Bedside Potassium 4.3 mEq/L (3.3-5.0) Bedside Chloride 97 mEq/L (101-112) Bedside Total CO2 25 mEq/l (24-31) Bedside Blood Urea Nitrogen 9 mg/dl (7-18) Bedside Creatinine 0.5 mg/dl (0.6-1.3) Bedside Glucose (other) 151 mg/dl (70-99) Bedside Ionized Calcium (Ricci) 1.00 mmol/l (1.12-1.32) Toxic Granulation 1+ Total Creatine Kinase 93 U/L (26-192) Test 10/28/16 05:34 10/28/16 14:01 10/28/16 20:11 White Blood Count 17.59 K/uL (4.8-10.8) Red Blood Count 2.80 M/uL (4.2-5.4) Hemoglobin 8.4 g/dL (12.0-16.0) Hematocrit 24.9 % (37-47) Mean Corpuscular Volume 88.9 fL (80-100) Mean Corpuscular Hemoglobin 30.0 pg (25-34) Mean Corpuscular Hemoglobin Concent 33.7 g/dl (32-36) Platelet Count 906 K/uL (130-400) Mean Platelet Volume 9.0 fL (7.4-10.4) Neutrophils (%) (Auto) 77.4 % Lymphocytes (%) (Auto) 8.4 % Monocytes (%) (Auto) 6.0 % Eosinophils (%) (Auto) 3.3 % Basophils (%) (Auto) 0.3 % Neutrophils # (Auto) 13.62 K/uL (1.4-6.5) Lymphocytes # (Auto) 1.47 K/uL (1.2-3.4) Monocytes # (Auto) 1.05 K/uL (0.11-0.59) Eosinophils # (Auto) 0.58 K/uL (0-0.5) Basophils # (Auto) 0.06 K/uL (0-0.2) RDW Standard Deviation 50.1 fL (36.4-46.3) RDW Coefficient of Variation 15.4 % (11.5-14.5) Immature Granulocyte % (Auto) 4.6 % Immature Granulocyte # (Auto) 0.81 K/uL (0.00-0.02) Nucleated RBC Absolute Count (auto) 0.02 K/uL (0-0) Nucleated Red Blood Cells % 0.1 % Red Blood Cell Morphology Unremarkable Anion Gap 11.0 mmol/L (3-11) Est Creatinine Clear Calc Drug Dose 145.3 ml/min Estimated GFR () 121.1 Estimated GFR (Non- 104.5 BUN/Creatinine Ratio 14.8 (10-20) Calcium Level 7.8 mg/dl (8.5-10.1) Magnesium Level 1.4 mg/dl (1.8-2.4) Activated Partial Thromboplast Time 49.3 SECONDS (21.0-31.0) Partial Thromboplastin Ratio 1.9 Bedside Glucose 151 mg/dl (70-90) Date/Time Source Procedure Growth Status 10/26/16 08:30 Blood Blood Culture - Preliminary NO GROWTH TO DATE. Resulted 10/21/16 12:30 Joint Fluid/Space (Synovial) Knee Left Gram Stain - Final Complete 10/21/16 12:30 Bacterial Culture - Final Staphylococcus Aureus Complete 10/20/16 00:00 Nasal MRSA DNA Surveillance Screen - Final Specimen Positive for MRSA by DNA Probe Complete 10/20/16 00:00 Ulcer Foot Right Gram Stain - Final Complete 10/20/16 00:00 Wound Culture - Final Staphylococcus Aureus Complete Last 24 Hours Test 10/28/16 05:34 10/28/16 06:59 10/28/16 12:05 10/28/16 14:01 White Blood Count 17.59 K/uL Red Blood Count 2.80 M/uL Hemoglobin 8.4 g/dL Hematocrit 24.9 % Mean Corpuscular Volume 88.9 fL Mean Corpuscular Hemoglobin 30.0 pg Mean Corpuscular Hemoglobin Concent 33.7 g/dl Platelet Count 906 K/uL Mean Platelet Volume 9.0 fL Neutrophils (%) (Auto) 77.4 % Lymphocytes (%) (Auto) 8.4 % Monocytes (%) (Auto) 6.0 % Eosinophils (%) (Auto) 3.3 % Basophils (%) (Auto) 0.3 % Neutrophils # (Auto) 13.62 K/uL Lymphocytes # (Auto) 1.47 K/uL Monocytes # (Auto) 1.05 K/uL Eosinophils # (Auto) 0.58 K/uL Basophils # (Auto) 0.06 K/uL RDW Standard Deviation 50.1 fL RDW Coefficient of Variation 15.4 % Immature Granulocyte % (Auto) 4.6 % Immature Granulocyte # (Auto) 0.81 K/uL Nucleated RBC Absolute Count (auto) 0.02 K/uL Nucleated Red Blood Cells % 0.1 % Red Blood Cell Morphology Unremarkable Activated Partial Thromboplast Time 45.6 SECONDS 49.3 SECONDS Partial Thromboplastin Ratio 1.8 1.9 Sodium Level 135 mmol/L Potassium Level 3.5 mmol/L Chloride Level 95 mmol/L Carbon Dioxide Level 29 mmol/L Anion Gap 11.0 mmol/L Blood Urea Nitrogen 7 mg/dl Creatinine 0.44 mg/dl Est Creatinine Clear Calc Drug Dose 145.3 ml/min Estimated GFR () 121.1 Estimated GFR (Non- 104.5 BUN/Creatinine Ratio 14.8 Random Glucose 196 mg/dl Calcium Level 7.8 mg/dl Magnesium Level 1.4 mg/dl Bedside Glucose 199 mg/dl 197 mg/dl Test 10/28/16 15:59 10/28/16 20:11 Bedside Glucose 247 mg/dl 151 mg/dl Assessment & Plan 66 yoF admitted for sepsis 2/2 infected L knee s/p recent arthoplasty and known recent amputations of R toes with bone exposure. She is s/p R BKA and has MRSA + bacteremia on Dapto 1. MRSA Bacteremia 2/2 L knee infection s/p washout. Post-op pain appears controlled. Pt had left total knee replacement done in 04/2000 s/p I and D of left TKA this admission; cx mrsa from I and D.and blood cx mrsa; hemodynamics stable currently. currently only on daptomycin; repeat cx mrsa; duration of abx as per ID; has central line; plan for picc line when blood cx negative; s/p RUBI this am 2. PVD with subsequent R BKA on 10/22/16 for infection of right foot with osteomyelitis. 3. DVT- bilateral lower extremity, s/p IVC filter by vascular surgery 4. Afib- RVR on initial presentation with sepsis--controlled with IV Cardizem. Ccont PO Cardizem and IV heparin 5. Anemia- multifactorial 2/2 acute blood loss anemia, daily phlebotomy and chronic disease. She has required 4 units blood this admission. Monitor CBC periodically. 6. DMII-holding oral meds, cont Lantus and ISS; appreciate glycemic pharmacist recs. 7 Thrombocytosis-worse, likely reactive in setting of recent surgery and active infection 8. Leukocytosis-see #7-improved FULL CODE DVT PROPHYLAXIS: heparin Jamia Nichols DO [facility] Hospitalist Continued [facility] stay due to: multiple IV medications needed Discharge planning: uncertain Consultants: Cardiology, Infectious Disease, Ortho Current Inpatient Medications: Current Inpatient Medications Medications (Trade) Dose Ordered Sig/Denisse Route Start Time Stop Time Status Last Admin Dose Admin Acetaminophen (Tylenol Tab) 650 mg Q4H PRN PO 10/19/16 22:00 11/18/16 21:59 Glucose (Glucose 40% Gel) 15-30 GRAMS 15 GRAMS... UD PRN PO 10/19/16 22:15 11/18/16 22:14 Glucose (Glucose Chew Tab) 4-8 Tablets 4 Tabl... UD PRN PO 10/19/16 22:15 11/18/16 22:14 Dextrose (Dextrose 50% 50ML Syringe) 25-50ML OF 50% DW IV FOR... UD PRN IV 10/19/16 22:15 11/18/16 22:14 Glucagon (Glucagon Inj) 1 mg UD PRN SQ 10/19/16 22:15 11/18/16 22:14 Ondansetron HCl (Zofran Inj) 4 mg Q4H PRN IV 10/19/16 22:45 11/18/16 22:44 Hydromorphone HCl (Dilaudid Inj) 0.2 mg Q4H PRN IV 10/19/16 22:45 11/02/16 22:44 10/24/16 18:14 0.2 MG Diltiazem HCl (Cardizem Cd Cap) 240 mg DAILY PO 10/20/16 09:00 11/19/16 08:59 Future hold 10/28/16 09:34 240 MG Acetaminophen/ Hydrocodone Bitart ([place] 5/325 Tab) 1 tab Q4H PRN PO 10/19/16 23:00 11/02/16 22:59 10/28/16 22:12 1 TAB Nystatin 1 appln BID EXT 10/21/16 21:00 11/20/16 20:59 10/28/16 19:52 1 APPLN Dexamethasone 3.75 mg/Nystatin 30 ml/ Diphenhydramine HCl 300 mg/ Sucrose 45 ml/ Microcrystalline Cellulose 45 ml/ Barcode 1 ea swish in mouth and spit ... BID PRN PO 10/21/16 11:15 11/20/16 11:14 10/22/16 11:13 5 ML Daptomycin/Sodium Chloride (Cubicin IV/Nss 50ml) 62 ml @ 100 mls/hr DAILY@1200 IV 10/22/16 12:00 11/09/16 23:59 10/28/16 11:51 100 MLS/HR Insulin Glargine (Lantus Solostar Pen) 18 unit BID SC 10/22/16 21:00 11/21/16 20:59 10/28/16 21:07 18 UNIT Pantoprazole Sodium 40 mg 40 mg QAM PO 10/25/16 09:00 11/24/16 08:59 10/28/16 09:34 40 MG Heparin Sodium/ Dextrose (Heparin 25,000 Unit/500ml D5W) 500 ml @ 23 mls/hr [id number] PRN IV 10/24/16 16:00 11/23/16 15:59 10/28/16 08:20 23 MLS/HR Insulin Aspart (novoLOG ASPART) SLIDING SCALE G... ACHS SC 10/27/16 12:00 11/26/16 11:59 10/28/16 17:30 11 UNITS Metoprolol Tartrate (Lopressor Tab) 12.5 mg BID PO 10/28/16 21:00 11/27/16 20:59 10/28/16 19:53 12.5 MG
[2016-10-29] VITALS (7 sets, daily range): BP systolic 115–144; BP diastolic 62–80; PULSE 80–93; TEMP 36.7–37.1; O2SAT 94–99
[2016-10-29] MEDS: INSULIN ASPART 100 UNITS/ML 3 ML PEN SC SCH ×4 (07:00→21:29)
[2016-10-29 07:08] LABS: BUN/CREATININE RATIO 16.7 (10-20); CALCIUM 7.7 mg/dl (8.5-10.1); CREATININE 0.49 mg/dl (0.60-1.20); POTASSIUM 3.6 mmol/L (3.5-5.1)
[2016-10-29 07:13] LABS: HEMATOCRIT 23.5 % (37-47); MEAN CELL VOLUME 91.4 fL (80-100); MEAN CORPUSCULAR HEMOGLOBIN 30.4 pg (25-34); MEAN CORPUSCULAR HGB CONC 33.2 g/dl (32-36); MEAN PLATELET VOLUME 9.3 fL (7.4-10.4); PLATELET COUNT 967 K/uL (130-400); RED BLOOD COUNT 2.57 M/uL (4.2-5.4); WHITE BLOOD COUNT 16.49 K/uL (4.8-10.8)
[2016-10-29 08:15] LABS: POLYCHROMASIA 1+; VACUOLIZATION 1+
[2016-10-29] MEDS: NYSTATIN POWDER 15GM BTL EXT SCH ×2 (08:44→21:28)
[2016-10-29] MEDS: METOPROLOL TARTRATE 25 MG TAB PO SCH ×2 (08:44→21:28)
[2016-10-29] MEDS: INSULIN GLARGINE SOLOSTAR 100 UNITS/ML 3 ML PEN SC SCH ×2 (09:03→21:30)
[2016-10-29] MEDS: DILTIAZEM HCL 240 MG CAPCR PO SCH (09:03)
[2016-10-29] MEDS: PANTOprazole SOD 40 MG TAB PO SCH (09:03)
[2016-10-29 09:18] LABS: COMPLETE YES
--- NOTE | 2016-10-29 10:30 | Infectious Disease Progress Nt ---
Progress Note Date of Service Oct 29, 2016. Subjective Repeat blood cultures continue to show no growth to date. Patient states that she is feeling "OK" today. WBC count was 16.49. Hgb was slightly low at 7.8 this morning. Creatinine was stable at 0.49. She continues on IV Daptomycin. It is noted that she has allergy to Vancomycin. Her pain is approximately 4/10. She denies diarrhea, nausea, sweats or chills. Wound images were reviewed. All Other Systems: Reviewed and Negative Medications Current Inpatient Medications Medications (Trade) Dose Ordered Sig/Denisse Route Start Time Stop Time Status Last Admin Dose Admin Acetaminophen (Tylenol Tab) 650 mg Q4H PRN PO 10/19/16 22:00 11/18/16 21:59 Glucose (Glucose 40% Gel) 15-30 GRAMS 15 GRAMS... UD PRN PO 10/19/16 22:15 11/18/16 22:14 Glucose (Glucose Chew Tab) 4-8 Tablets 4 Tabl... UD PRN PO 10/19/16 22:15 11/18/16 22:14 Dextrose (Dextrose 50% 50ML Syringe) 25-50ML OF 50% DW IV FOR... UD PRN IV 10/19/16 22:15 11/18/16 22:14 Glucagon (Glucagon Inj) 1 mg UD PRN SQ 10/19/16 22:15 11/18/16 22:14 Ondansetron HCl (Zofran Inj) 4 mg Q4H PRN IV 10/19/16 22:45 11/18/16 22:44 Hydromorphone HCl (Dilaudid Inj) 0.2 mg Q4H PRN IV 10/19/16 22:45 11/02/16 22:44 10/24/16 18:14 0.2 MG Diltiazem HCl (Cardizem Cd Cap) 240 mg DAILY PO 10/20/16 09:00 11/19/16 08:59 Future hold 10/29/16 09:03 240 MG Acetaminophen/ Hydrocodone Bitart ([place] 5/325 Tab) 1 tab Q4H PRN PO 10/19/16 23:00 11/02/16 22:59 10/28/16 22:12 1 TAB Nystatin 1 appln BID EXT 10/21/16 21:00 11/20/16 20:59 10/29/16 08:44 1 APPLN Dexamethasone 3.75 mg/Nystatin 30 ml/ Diphenhydramine HCl 300 mg/ Sucrose 45 ml/ Microcrystalline Cellulose 45 ml/ Barcode 1 ea swish in mouth and spit ... BID PRN PO 10/21/16 11:15 11/20/16 11:14 10/22/16 11:13 5 ML Daptomycin/Sodium Chloride (Cubicin IV/Nss 50ml) 62 ml @ 100 mls/hr DAILY@1200 IV 10/22/16 12:00 11/09/16 23:59 10/28/16 11:51 100 MLS/HR Insulin Glargine (Lantus Solostar Pen) 18 unit BID SC 10/22/16 21:00 11/21/16 20:59 10/29/16 09:03 18 UNIT Pantoprazole Sodium 40 mg 40 mg QAM PO 10/25/16 09:00 11/24/16 08:59 10/29/16 09:03 40 MG Heparin Sodium/ Dextrose (Heparin 25,000 Unit/500ml D5W) 500 ml @ 23 mls/hr [id number] PRN IV 10/24/16 16:00 11/23/16 15:59 10/28/16 08:20 23 MLS/HR Insulin Aspart (novoLOG ASPART) SLIDING SCALE G... ACHS SC 10/27/16 12:00 11/26/16 11:59 10/29/16 07:00 9 UNITS Metoprolol Tartrate (Lopressor Tab) 25 mg BID PO 10/29/16 21:00 11/28/16 20:59 Objective Vital Signs Date Time Temp Pulse Resp B/P Pulse Ox O2 Delivery O2 Flow Rate FiO2 10/29/16 08:00 Nasal Cannula 2.0 10/29/16 07:00 36.7 81 18 144/80 95 Nasal Cannula 2.0 10/29/16 04:00 Nasal Cannula 2.0 10/29/16 03:39 37.1 80 17 136/62 99 Nasal Cannula 3.0 10/29/16 00:01 Nasal Cannula 2.0 10/28/16 23:55 37.0 81 18 125/62 99 Nasal Cannula 3.0 10/28/16 20:00 Nasal Cannula 2.0 10/28/16 19:50 36.4 111 18 103/63 98 Nasal Cannula 3.0 10/28/16 16:00 Nasal Cannula 2.0 10/28/16 15:48 37.0 91 16 124/77 98 Nasal Cannula 3.0 10/28/16 14:52 36.9 109 20 128/73 97 Nasal Cannula 2.0 10/28/16 14:15 36.9 115 20 96 2.0 10/28/16 11:52 36.9 115 20 129/67 96 Nasal Cannula 2.0 10/28/16 10:50 97 Physical Exam General Appearance: no apparent distress, + obese Eyes: normal inspection, sclerae normal ENT: hearing grossly normal Neck: supple, trachea midline Respiratory/Chest: no respiratory distress, no accessory muscle use Cardiovascular: + pertinent finding (regular rate) Extremities: + pertinent finding (right BKA. Left knee with hemovac and dressing in place. Trace edema of the left lower extremity) Neurologic/Psychiatric: alert, normal mood/affect Skin: normal color, warm/dry, no rash Laboratory Results Item Value Date Time Blood Culture - Preliminary Resulted 10/26/16 0830 Blood NO GROWTH TO DATE. Blood Culture - Preliminary Resulted 10/26/16 0825 Blood NO GROWTH TO DATE. Last 24 Hours Test 10/28/16 12:05 10/28/16 14:01 10/28/16 15:59 10/28/16 20:11 Bedside Glucose 197 mg/dl 247 mg/dl 151 mg/dl Activated Partial Thromboplast Time 49.3 SECONDS Partial Thromboplastin Ratio 1.9 Test 10/29/16 06:21 10/29/16 06:24 White Blood Count 16.49 K/uL Red Blood Count 2.57 M/uL Hemoglobin 7.8 g/dL Hematocrit 23.5 % Mean Corpuscular Volume 91.4 fL Mean Corpuscular Hemoglobin 30.4 pg Mean Corpuscular Hemoglobin Concent 33.2 g/dl Platelet Count 967 K/uL Mean Platelet Volume 9.3 fL RDW Standard Deviation 51.3 fL RDW Coefficient of Variation 15.5 % Nucleated RBC Absolute Count (auto) 0.39 K/uL Nucleated Red Blood Cells % 2.4 % Toxic Vacuolation 1+ Polychromasia 1+ Sodium Level 134 mmol/L Potassium Level 3.6 mmol/L Chloride Level 95 mmol/L Carbon Dioxide Level 31 mmol/L Anion Gap 8.0 mmol/L Blood Urea Nitrogen 8 mg/dl Creatinine 0.49 mg/dl Est Creatinine Clear Calc Drug Dose 124.3 ml/min Estimated GFR () 116.8 Estimated GFR (Non- 100.8 BUN/Creatinine Ratio 16.7 Random Glucose 150 mg/dl Calcium Level 7.7 mg/dl Magnesium Level 2.0 mg/dl Bedside Glucose 150 mg/dl Assessment and Plan Diabetic female with left septic TKA- now s/p I & D x 2, wound infection of the right lower extremity- now s/p right BKA, and MRSA bacteremia. RUBI showed no evidence of vegetation. She continues on Daptomycin. Her most recent blood cultures are showing no growth to date. Patient likely can have PICC line placed at this time for further treatment with negative blood cultures thus far. She will need 6 weeks of IV abx from this first negative blood cultures. Unfortunately, this patient has a Vancomycin allergy. We will need to either continue on IV Daptomycin or IV Ceftaroline. Unsure of which rehab center (if any) will accept this patient on these medications. Will need to discuss with CM. We will follow. PROVIDER ADDENDUM: Patient reviewed with Ms. Alberto. Agree with above assessment.
--- NOTE | 2016-10-29 10:32 | PROGRESS NOTE ---
DATE: 10/29/2016 FOLLOWUP VISIT SUBJECTIVE: The patient is a 66-year-old female who has a history of osteomyelitis, status post right BKA and septic left knee with surgery for debridement. During her initial presentation, the patient was septic and had some runs of atrial fibrillation. The patient has been on telemetry past 24 hours. We did start the beta jodie yesterday. She is tolerating this medication. She has had no runs of atrial fibrillation but is in a sinus mechanism with very frequent PACs. She has no complaints today. I do note that her hemoglobin today is 7.8. This admission, she has had multiple blood transfusions. Her anemia is felt to be multifactorial. She is on heparin which was started due to the atrial fibrillation. We need to consider options regarding this anticoagulation and given her anemia, full anticoagulation with heparin may put her at increased risk. We could consider switching her to subQ heparin. OBJECTIVE: GENERAL: She is alert and oriented in no acute distress. VITAL SIGNS: Blood pressure 140/80, pulse is irregular at 75 beats per minute. She is afebrile. HEENT: She is normocephalic. Pupils are equal and reactive to light. Extraocular muscles are intact bilaterally. NECK: The neck veins are flat. Carotids have good upstrokes bilaterally without bruits. Thyroid is nonpalpable. RESPIRATORY: Breath sounds equal bilaterally and clear to auscultation. CARDIOVASCULAR: Heart has an irregular rhythm. Normal S1, S2, no S3, S4. No cardiac rubs or murmurs. GASTROINTESTINAL: Abdomen is soft, nontender without organomegaly. EXTREMITIES: She is right BKA. NEUROLOGIC: Grossly intact. SKIN: Warm to touch. LYMPH NODES: Negative to palpation. LABORATORY DATA: Hemoglobin is 7.8, WBC count is 16.49. Potassium is 3.6, magnesium is 2.0 and creatinine 0.49. IMPRESSION: 1. Status post sepsis with osteomyelitis of the right foot status post below the knee amputation and left knee sepsis with debridement. 2. Paroxysmal atrial arrhythmias and frequent premature atrial contractions. 3. Anemia. RECOMMENDATIONS: As outlined above, we may want to consider switching her off full anticoagulation to subQ heparin more for a DVT prophylaxis due to her increased risk from her anemia. I will increase her metoprolol again today. On the telemetry, she has not had any sustained episodes of atrial fibrillation.
[2016-10-29] MEDS: DAPTOmycin IV 600 MG in SODIUM CHLORIDE 0.9% 50ML 50 ML IV SCH (12:00)
--- NOTE | 2016-10-29 13:07 | Orthopedic Progress Note ---
Orthopedic Progress Note Date of Service Oct 29, 2016. Subjective Reports: feeling well, pain controlled w PO medications, Denies: SOB, calf pain , chest pain, complaints, light headedness, nausea / vomiting Objective N/V intact, dressing C/D/I, incision C/D/I, A&O x3 Rt BKA incision c/d/i, no erythema, no drainage, skin edges approx well, sutures in tact. Left knee [place] wound vac in tact w good suction, no erythema, no drainage, no calf tenderness. Date Time Temp Pulse Resp B/P Pulse Ox O2 Delivery O2 Flow Rate FiO2 10/29/16 10:47 36.7 84 18 115/67 94 1.0 10/29/16 08:00 Nasal Cannula 2.0 10/29/16 07:00 36.7 81 18 144/80 95 Nasal Cannula 2.0 10/29/16 04:00 Nasal Cannula 2.0 10/29/16 03:39 37.1 80 17 136/62 99 Nasal Cannula 3.0 10/29/16 00:01 Nasal Cannula 2.0 10/28/16 23:55 37.0 81 18 125/62 99 Nasal Cannula 3.0 10/28/16 20:00 Nasal Cannula 2.0 10/28/16 19:50 36.4 111 18 103/63 98 Nasal Cannula 3.0 10/28/16 16:00 Nasal Cannula 2.0 10/28/16 15:48 37.0 91 16 124/77 98 Nasal Cannula 3.0 10/28/16 14:52 36.9 109 20 128/73 97 Nasal Cannula 2.0 10/28/16 14:15 36.9 115 20 96 2.0 Laboratory Results 24 Hours: Test 10/29/16 06:21 White Blood Count 16.49 K/uL Red Blood Count 2.57 M/uL Hemoglobin 7.8 g/dL Hematocrit 23.5 % Mean Corpuscular Volume 91.4 fL Mean Corpuscular Hemoglobin 30.4 pg Mean Corpuscular Hemoglobin Concent 33.2 g/dl Platelet Count 967 K/uL Mean Platelet Volume 9.3 fL Assessment & Plan Assessment: POD #6 s/p right BKA POD #4 s/p Left TKA I&D w/ poly exchange and Anbx beads DVT bilateral lower extremity, ivc filter placed by dr steward on 10/21/16 AFIB RVR : appreciate input form Cardiology ANEMIA-7.8 today, as per medicine. TYPE 2 DM : holding oral meds insulin SSI /basal Lantus pharmacy consulted for glycemic control Plan: Left Septic TKA- sp I&D x 2 with I&D and poly exchange on Thursday10/24/16. Had RUBI showing no evidence of vegetation. Currently on Daptomycin, Unable to do PICC until cultures clear. Also possibility of adding Rifampin. Otherwise will leave Prevena on for 7 days Inhouse Planning DVT Prophylaxis: TEDs, SCDs, Heparin Drip Discharge Planning Discharge Planning: uncertain
--- NOTE | 2016-10-29 13:39 | Progress Note ---
Medicine Progress Note Date & Time of Visit: Oct 29, 2016 at 13:02. Subjective 66 yoF admitted for sepsis 2/2 infected L knee s/p recent arthoplasty and known recent amputations of R toes with bone exposure. She is s/p R BKA and has MRSA + bacteremia on Dapto -denies any active bleeidng -constipation -reports concerns about falling with PT and refuses to sit on edge of bed at this time -consented to PICC line in prep for fpc IV abx. -denies any chest pain, palpitations, shortness of breath, or other symptoms at this time -post-op pain is well-controlled. Objective Last 8 Hrs Date Time Temp Pulse Resp B/P Pulse Ox O2 Delivery O2 Flow Rate FiO2 10/29/16 10:47 36.7 84 18 115/67 94 1.0 10/29/16 08:00 Nasal Cannula 2.0 10/29/16 07:00 36.7 81 18 144/80 95 Nasal Cannula 2.0 Physical Exam: GEN: Obese, in no acute distress, alert and appropriate HEENT: NC/AT, normal sclerae CARDIO: reg rate, S1/2 heard without m/g/r LUNGS: CTA bilaterally, no crackles, rales or wheezes, good diaphragmatic excursion ABD: soft, non-tender, non-distended, no rebound or guarding,+BS EXTREMITY: LLE NVI, wrapping to L knee area that is c/d/i (wound vac in place). RLE amputated below the knee with dressing on stump that is c/d/i NEURO: no gross focal deficits MUSC: moves all extremities equally SKIN: warm and dry, Stage II wounds on buttock either side approx 4x2cm. Optifoam in place and is on EHOB mattress Laboratory Results: Last 24 Hours Test 10/28/16 14:01 10/28/16 15:59 10/28/16 20:11 10/29/16 06:21 Activated Partial Thromboplast Time 49.3 SECONDS Partial Thromboplastin Ratio 1.9 Bedside Glucose 247 mg/dl 151 mg/dl White Blood Count 16.49 K/uL Red Blood Count 2.57 M/uL Hemoglobin 7.8 g/dL Hematocrit 23.5 % Mean Corpuscular Volume 91.4 fL Mean Corpuscular Hemoglobin 30.4 pg Mean Corpuscular Hemoglobin Concent 33.2 g/dl Platelet Count 967 K/uL Mean Platelet Volume 9.3 fL RDW Standard Deviation 51.3 fL RDW Coefficient of Variation 15.5 % Nucleated RBC Absolute Count (auto) 0.39 K/uL Nucleated Red Blood Cells % 2.4 % Toxic Vacuolation 1+ Polychromasia 1+ Sodium Level 134 mmol/L Potassium Level 3.6 mmol/L Chloride Level 95 mmol/L Carbon Dioxide Level 31 mmol/L Anion Gap 8.0 mmol/L Blood Urea Nitrogen 8 mg/dl Creatinine 0.49 mg/dl Est Creatinine Clear Calc Drug Dose 124.3 ml/min Estimated GFR () 116.8 Estimated GFR (Non- 100.8 BUN/Creatinine Ratio 16.7 Random Glucose 150 mg/dl Calcium Level 7.7 mg/dl Magnesium Level 2.0 mg/dl Test 10/29/16 06:24 Bedside Glucose 150 mg/dl Assessment & Plan 66 yoF admitted for sepsis 2/2 infected L knee s/p recent arthoplasty and known recent amputations of R toes with bone exposure. She is s/p R BKA and has MRSA + bacteremia on Dapto 1. MRSA Bacteremia 2/2 L knee infection s/p washout. Post-op pain appears controlled. Pt had left total knee replacement many years ago that became infected and she is s/p I and D of left TKA this admission; MRSA in blood and knee washout. She is tachy overnight thought to be 2/2 atrial arrythmia. Cardiology is consulted to assist with this (see below). On Dapto 2/2 allergy to Vanc, Plan for picc line today as blood cultures are negative from 10/26. s/p RUBI with no vegetation seen. 2. PVD with subsequent R BKA on 10/22/16 for infection of right foot with osteomyelitis. Wound care per Ortho. 3. DVT- bilateral lower extremity, s/p IVC filter by vascular surgery, d/cing heparin drip in light of recent surgery and acute blood loss anemia. Will consult hematology for assistance with additional management in this setting. For example, when the bleding risk is lower, would we want to reinstitute blood thinners and remove the IVC filter? 4. Atrial tachycardia- RVR on initial presentation with sepsis--controlled with IV Cardizem. Pt had episodes of tachycardia on the floor and was placed back on telemetry for closer watch on her rhythm. Review of tele reveals burst of sinus tach overnight into the 120-130s and heart rate has decreased this morning. Per Cardiology Metoprolol will be increased to 25mg BID in addition to the Dilt 240 daily. No atrial fibrillation present at this time. Stopping heparin drip in setting of anemia with IVC filter in place (DVTs) 5. Anemia- multifactorial 2/2 acute blood loss anemia (wound vac in place), daily phlebotomy and chronic disease. She has required 4 units blood this admission. H/H is 7.8/23.5 today, slightly down from yesterday. Pt is asymptomatic, however, is just lying in bed right now. If continues to fall would consider transfusion. CBC in am 6. DMII-FSG at goal, holding oral meds, cont Lantus and ISS; appreciate glycemic pharmacist recs. 7 Thrombocytosis->900K, likely reactive in setting of recent surgery and active infection 8. Leukocytosis-see #7-improved 9. Stage II buttock wounds-Optifoam in place, daily nursing assessment for wound care, EHOB mattress in place. FULL CODE DVT PROPHYLAXIS: heparin-->change to Lovenox Dispo to rehab with IV abx for next 4-6 weeks when bed available. Jamia Nichols DO [facility] Hospitalist Continued [facility] stay due to: multiple IV medications needed Discharge planning: uncertain Current Inpatient Medications: Current Inpatient Medications Medications (Trade) Dose Ordered Sig/Denisse Route Start Time Stop Time Status Last Admin Dose Admin Acetaminophen (Tylenol Tab) 650 mg Q4H PRN PO 10/19/16 22:00 11/18/16 21:59 Glucose (Glucose 40% Gel) 15-30 GRAMS 15 GRAMS... UD PRN PO 10/19/16 22:15 11/18/16 22:14 Glucose (Glucose Chew Tab) 4-8 Tablets 4 Tabl... UD PRN PO 10/19/16 22:15 11/18/16 22:14 Dextrose (Dextrose 50% 50ML Syringe) 25-50ML OF 50% DW IV FOR... UD PRN IV 10/19/16 22:15 11/18/16 22:14 Glucagon (Glucagon Inj) 1 mg UD PRN SQ 10/19/16 22:15 11/18/16 22:14 Ondansetron HCl (Zofran Inj) 4 mg Q4H PRN IV 10/19/16 22:45 11/18/16 22:44 Hydromorphone HCl (Dilaudid Inj) 0.2 mg Q4H PRN IV 10/19/16 22:45 11/02/16 22:44 10/24/16 18:14 0.2 MG Diltiazem HCl (Cardizem Cd Cap) 240 mg DAILY PO 10/20/16 09:00 11/19/16 08:59 Future hold 10/29/16 09:03 240 MG Acetaminophen/ Hydrocodone Bitart ([place] 5/325 Tab) 1 tab Q4H PRN PO 10/19/16 23:00 11/02/16 22:59 10/28/16 22:12 1 TAB Nystatin 1 appln BID EXT 10/21/16 21:00 11/20/16 20:59 10/29/16 08:44 1 APPLN Dexamethasone 3.75 mg/Nystatin 30 ml/ Diphenhydramine HCl 300 mg/ Sucrose 45 ml/ Microcrystalline Cellulose 45 ml/ Barcode 1 ea swish in mouth and spit ... BID PRN PO 10/21/16 11:15 11/20/16 11:14 10/22/16 11:13 5 ML Daptomycin/Sodium Chloride (Cubicin IV/Nss 50ml) 62 ml @ 100 mls/hr DAILY@1200 IV 10/22/16 12:00 11/09/16 23:59 10/28/16 11:51 100 MLS/HR Insulin Glargine (Lantus Solostar Pen) 18 unit BID SC 10/22/16 21:00 11/21/16 20:59 10/29/16 09:03 18 UNIT Pantoprazole Sodium 40 mg 40 mg QAM PO 10/25/16 09:00 11/24/16 08:59 10/29/16 09:03 40 MG Heparin Sodium/ Dextrose (Heparin 25,000 Unit/500ml D5W) 500 ml @ 23 mls/hr [id number] PRN IV 10/24/16 16:00 11/23/16 15:59 10/28/16 08:20 23 MLS/HR Insulin Aspart (novoLOG ASPART) SLIDING SCALE G... ACHS SC 10/27/16 12:00 11/26/16 11:59 10/29/16 07:00 9 UNITS Metoprolol Tartrate (Lopressor Tab) 25 mg BID PO 10/29/16 21:00 11/28/16 20:59
[2016-10-29 18:09] LABS: HEMATOCRIT 21.8 % (37-47); MEAN CELL VOLUME 91.6 fL (80-100); MEAN CORPUSCULAR HEMOGLOBIN 30.3 pg (25-34); MEAN PLATELET VOLUME 8.7 fL (7.4-10.4); PLATELET COUNT 875 K/uL (130-400); RED BLOOD COUNT 2.38 M/uL (4.2-5.4); WHITE BLOOD COUNT 14.87 K/uL (4.8-10.8)
[2016-10-29] MEDS: HYDROCODONE/ACETAMOPHEN 5/325MG TAB PO PRN (21:39)
[2016-10-30] VITALS (19 sets, daily range): BP systolic 116–159; BP diastolic 63–92; PULSE 70–90; TEMP 36.3–37.3; O2SAT 94–100
[2016-10-30 06:50] LABS: BUN/CREATININE RATIO 27.5 (10-20); CALCIUM 7.8 mg/dl (8.5-10.1); CREATININE 0.46 mg/dl (0.60-1.20); POTASSIUM 3.6 mmol/L (3.5-5.1)
[2016-10-30 07:46] LABS: HEMATOCRIT 21.2 % (37-47); MEAN CELL VOLUME 91.8 fL (80-100); MEAN CORPUSCULAR HEMOGLOBIN 29.9 pg (25-34); MEAN CORPUSCULAR HGB CONC 32.5 g/dl (32-36); MEAN PLATELET VOLUME 8.9 fL (7.4-10.4); PLATELET COUNT 918 K/uL (130-400); RED BLOOD COUNT 2.31 M/uL (4.2-5.4); WHITE BLOOD COUNT 15.03 K/uL (4.8-10.8)
--- NOTE | 2016-10-30 07:47 | Medical Consult ---
Consultation Date of Consultation: Oct 30, 2016. Attending Physician: Prasanna Car D.O. Reason for Consultation: DVT s/p IVC filter History of Present Illness 66-year-old female with past medical history of hypertension, diabetes, hyperlipidemia, peripheral vascular disease. She underwent amputation of medial 3 toes on the right side on September 29, 2016 at [facility]. She states that after that she was in Rehab and was receiving some physical therapy. She developed pain and swelling in the left lower extremity and was taken to [facility] and was felt to have infected left knee joint and was transferred to [facility] for further management. She is status post right BKA postop day 7. She is on daptomycin. She is status post left TKA I and D Her venous Doppler on 10/19/2016 showed bilateral acute DVT, on the right involving the right popliteal vein, and on the left involving the left posterior tibial vein. There was also superficial thrombophlebitis identified in the right involving the greater saphenous vein. Past Medical/Surgical History Past medical history: Hypertension, hyperlipidemia, peripheral vascular disease with venous insufficiency, atrial fibrillation, osteoarthritis Past surgical history left knee total arthroplasty, cataract surgery, vein stripping, amputation of right medial 3 toes in September 2016 Family History No pertinent family history Family history: she states that there is FH of PVD Social History Smoking Status: Never Smoker Smokeless Tobacco Use: No Alcohol Use: none Drug Use: none Allergies Coded Allergies: RASHAAD Inhibitors (Verified Allergy, Unknown, RASH, 10/19/16) unknown reaction Atorvastatin (Verified Allergy, Unknown, rash, 10/19/16) unknown reaction Ertapenem (Verified Allergy, Unknown, rash, 10/19/16) unknown reaction Piperacillin (Verified Allergy, Unknown, rash, 10/19/16) Saxagliptin (Verified Allergy, Unknown, rash, 10/19/16) unknown reaction Simvastatin (Verified Allergy, Unknown, rash, 10/19/16) unknown reaction Tazobactam (Verified Allergy, Unknown, rash, 10/19/16) Vancomycin (Verified Allergy, Unknown, rash, 10/19/16) Current Inpatient Medications Current Inpatient Medications Medications (Trade) Dose Ordered Sig/Denisse Route Start Time Stop Time Status Last Admin Dose Admin Acetaminophen (Tylenol Tab) 650 mg Q4H PRN PO 10/19/16 22:00 11/18/16 21:59 Glucose (Glucose 40% Gel) 15-30 GRAMS 15 GRAMS... UD PRN PO 10/19/16 22:15 11/18/16 22:14 Glucose (Glucose Chew Tab) 4-8 Tablets 4 Tabl... UD PRN PO 10/19/16 22:15 11/18/16 22:14 Dextrose (Dextrose 50% 50ML Syringe) 25-50ML OF 50% DW IV FOR... UD PRN IV 10/19/16 22:15 11/18/16 22:14 Glucagon (Glucagon Inj) 1 mg UD PRN SQ 10/19/16 22:15 11/18/16 22:14 Ondansetron HCl (Zofran Inj) 4 mg Q4H PRN IV 10/19/16 22:45 11/18/16 22:44 Hydromorphone HCl (Dilaudid Inj) 0.2 mg Q4H PRN IV 10/19/16 22:45 11/02/16 22:44 10/24/16 18:14 0.2 MG Diltiazem HCl (Cardizem Cd Cap) 240 mg DAILY PO 10/20/16 09:00 11/19/16 08:59 Future hold 10/29/16 09:03 240 MG Acetaminophen/ Hydrocodone Bitart ([place] 5/325 Tab) 1 tab Q4H PRN PO 10/19/16 23:00 11/02/16 22:59 10/29/16 21:39 1 TAB Nystatin 1 appln BID EXT 10/21/16 21:00 11/20/16 20:59 10/29/16 21:28 1 APPLN Dexamethasone 3.75 mg/Nystatin 30 ml/ Diphenhydramine HCl 300 mg/ Sucrose 45 ml/ Microcrystalline Cellulose 45 ml/ Barcode 1 ea swish in mouth and spit ... BID PRN PO 10/21/16 11:15 11/20/16 11:14 10/22/16 11:13 5 ML Daptomycin/Sodium Chloride (Cubicin IV/Nss 50ml) 62 ml @ 100 mls/hr DAILY@1200 IV 10/22/16 12:00 11/09/16 23:59 10/29/16 12:00 100 MLS/HR Insulin Glargine (Lantus Solostar Pen) 18 unit BID SC 10/22/16 21:00 11/21/16 20:59 10/29/16 21:30 18 UNIT Pantoprazole Sodium (Protonix Tab) 40 mg QAM PO 10/25/16 09:00 11/24/16 08:59 10/29/16 09:03 40 MG Insulin Aspart (novoLOG ASPART) SLIDING SCALE G... ACHS SC 10/27/16 12:00 11/26/16 11:59 10/29/16 21:29 5 UNITS Metoprolol Tartrate (Lopressor Tab) 25 mg BID PO 10/29/16 21:00 11/28/16 20:59 10/29/16 21:28 25 MG Enoxaparin Sodium (Lovenox Inj) 40 mg QAM SQ 10/30/16 09:00 11/29/16 08:59 Heparin Sodium (Porcine) (Heparin 10 Unit/ ml 5 ml Flush) 5 ml PRN PRN FLUSH 10/29/16 15:30 11/28/16 15:29 10/29/16 18:01 5 ML Review of Systems Constitutional: + fatigue, + weakness (generalized), No chills, No fever, No sweats ENT: No sore throat, No trouble swallowing, No unusual epistaxis Respiratory: No cough, No hemoptysis, No shortness of breath, No sputum, No wheezing Cardiovascular: + edema, No chest pain, No orthopnea Abdomen: No constipation, No diarrhea, No nausea, No pain, No vomiting Genitourinary - Female: No dysuria Neurologic: No numbness/tingling, No vertigo Psychiatric: + depression symptoms Endocrine: + fatigue Hematologic / Lymphatic: No abnormal bleeding/bruising, No night sweats, No swollen lymph nodes Physical Exam Date Time Temp Pulse Resp B/P Pulse Ox O2 Delivery O2 Flow Rate FiO2 10/30/16 04:00 94 Nasal Cannula 2.0 10/30/16 03:42 36.7 84 18 126/80 94 Nasal Cannula 2.0 10/29/16 23:59 99 Nasal Cannula 2.0 10/29/16 22:59 37.1 83 18 133/80 99 Nasal Cannula 2.0 10/29/16 20:00 Nasal Cannula 2.0 10/29/16 19:41 36.9 92 18 138/79 98 Nasal Cannula 2.0 10/29/16 16:00 Nasal Cannula 2.0 10/29/16 15:28 36.9 93 16 128/76 95 Nasal Cannula 2.0 10/29/16 11:00 Nasal Cannula 2.0 10/29/16 10:47 36.7 84 18 115/67 94 1.0 10/29/16 08:00 Nasal Cannula 2.0 General Appearance: no apparent distress (chronically ill appearing) Head: normocephalic, atraumatic Eyes: sclerae normal Neck: supple, no adenopathy Respiratory/Chest: chest non-tender, lungs clear, normal breath sounds, no respiratory distress, no accessory muscle use Cardiovascular: + pertinent finding (irregular rhythm) Abdomen/GI: normal bowel sounds, non tender, soft, no organomegaly Extremities/Musculoskelatal: + pertinent finding (Wound vac left knee right bka DRESSING C/D/I) Neurologic/Psych: alert, oriented x 3 Skin: warm/dry Laboratory Results Last 24 Hours Test 10/29/16 13:54 10/29/16 15:52 10/29/16 18:00 10/29/16 20:15 Bedside Glucose 281 mg/dl 278 mg/dl 224 mg/dl White Blood Count 14.87 K/uL Red Blood Count 2.38 M/uL Hemoglobin 7.2 g/dL Hematocrit 21.8 % Mean Corpuscular Volume 91.6 fL Mean Corpuscular Hemoglobin 30.3 pg Mean Corpuscular Hemoglobin Concent 33.0 g/dl RDW Standard Deviation 51.6 fL RDW Coefficient of Variation 15.6 % Platelet Count 875 K/uL Mean Platelet Volume 8.7 fL Test 10/30/16 05:56 10/30/16 06:47 Sodium Level 135 mmol/L Potassium Level 3.6 mmol/L Chloride Level 95 mmol/L Carbon Dioxide Level 32 mmol/L Anion Gap 8.0 mmol/L Blood Urea Nitrogen 13 mg/dl Creatinine 0.46 mg/dl Est Creatinine Clear Calc Drug Dose 132.1 ml/min Estimated GFR () 119.3 Estimated GFR (Non- 102.9 BUN/Creatinine Ratio 27.5 Random Glucose 190 mg/dl Calcium Level 7.8 mg/dl Bedside Glucose 195 mg/dl Assessment & Plan Impression: 66-year-old female with septic arthritis involving left knee status post surgery Recent DVT status post IVC filter As she has worsening anemia and she has an IVC filter, I agree that in terms of the DVT therapeutic anticoagulation can be held at this time. She will need to follow up after discharge. At this time, I would continue with IVC filter as she is not able to be on therapeutic anticoagulation currently for the DVT with her worsening anemia. Anemia likely secondary to chronic inflammation and blood loss. She had recent surgeries. Recommend rule out acute blood loss. Hold lovenox if any bleeding or worsening anemia since she has an IVC filter. Transfuse PRBC as needed for symptomatic anemia or if hemoglobin <7 Thrombocytosis likely reactive - recent septic arthritis and surgery I will check prothrombin gene mutation and factor V leiden Thank you for allowing us to participate in the care of this patient
[2016-10-30] MEDS ORDERED: ACETAMINOPHEN 325 MG TAB PO ONE (08:00)
--- NOTE | 2016-10-30 08:01 | Orthopedic Progress Note ---
Orthopedic Progress Note Date of Service Oct 30, 2016. Subjective Post OP Day: 5 (I&D and poly change left knee) Reports: light headedness, pain controlled w PO medications, Denies: chest pain , nausea / vomiting Additional Notes: patient states that she has had off and on dizziness over past 12 hours Objective A&O x3 Wound vac left knee intact, no surrounding erythema or warmth. right BKA dressing CD&I Date Time Temp Pulse Resp B/P Pulse Ox O2 Delivery O2 Flow Rate FiO2 10/30/16 04:00 94 Nasal Cannula 2.0 10/30/16 03:42 36.7 84 18 126/80 94 Nasal Cannula 2.0 10/29/16 23:59 99 Nasal Cannula 2.0 10/29/16 22:59 37.1 83 18 133/80 99 Nasal Cannula 2.0 10/29/16 20:00 Nasal Cannula 2.0 10/29/16 19:41 36.9 92 18 138/79 98 Nasal Cannula 2.0 10/29/16 16:00 Nasal Cannula 2.0 10/29/16 15:28 36.9 93 16 128/76 95 Nasal Cannula 2.0 10/29/16 11:00 Nasal Cannula 2.0 10/29/16 10:47 36.7 84 18 115/67 94 1.0 10/29/16 08:00 Nasal Cannula 2.0 Laboratory Results 24 Hours: Test 3 18:00 10/30/16 05:56 Hematocrit 21.8 % 21.2 % Hemoglobin 7.2 g/dL 6.9 g/dL Assessment & Plan Assessment: POD #7 s/p right BKA -currently on dapto due to allergy to vanco, PICC for shelter Abx, likely 6 weeks. POD #5 s/p Left TKA I&D w/ poly exchange and Anbx beads DVT B/L LE, s/p IVC by dr steward. consult hematology, dc heparin drip s/p IVC and setting of acute blood loss. Patient to be transfused this am with H/H of 6.9/21 and experiencing dizziness. Atrial tachycardia- placed back on telemetry for closer monitoring. Cardiology has increased metoprolol to 25mg bid and diltiazem 240mg daily. DMII- on Lantus and ISS Discharge Planning Discharge Planning: uncertain
[2016-10-30] MEDS: INSULIN ASPART 100 UNITS/ML 3 ML PEN SC SCH ×4 (08:20→21:22)
[2016-10-30] MEDS: DILTIAZEM HCL 240 MG CAPCR PO SCH (08:22)
[2016-10-30] MEDS: METOPROLOL TARTRATE 25 MG TAB PO SCH ×2 (08:23→21:23)
[2016-10-30] MEDS: PANTOprazole SOD 40 MG TAB PO SCH (08:23)
[2016-10-30] MEDS: INSULIN GLARGINE SOLOSTAR 100 UNITS/ML 3 ML PEN SC SCH ×2 (08:27→21:23)
[2016-10-30] MEDS: NYSTATIN POWDER 15GM BTL EXT SCH ×2 (08:31→21:05)
[2016-10-30] MEDS ORDERED: FUROSEMIDE INJ 20 MG in SYRINGE 0 ML IV SCH (09:00)
--- NOTE | 2016-10-30 11:45 | Infectious Disease Progress Nt ---
Progress Note Date of Service Oct 30, 2016. Subjective Pt evaluation today including: conversation w/ patient, physical exam, chart review, lab review, review of studies, review of inpatient medication list WBC count this morning was 15.03. Hgb noted to be down to 6.9. She is receiving a blood transfusion during my exam. She is very lethargic today. Creatinine stable at 0.46. Most recent repeat blood cultures continue to show no growth. No new imaging. She states that her pain is "OK". All Other Systems: Reviewed and Negative Medications Current Inpatient Medications Medications (Trade) Dose Ordered Sig/Denisse Route Start Time Stop Time Status Last Admin Dose Admin Acetaminophen (Tylenol Tab) 650 mg Q4H PRN PO 10/19/16 22:00 11/18/16 21:59 Glucose (Glucose 40% Gel) 15-30 GRAMS 15 GRAMS... UD PRN PO 10/19/16 22:15 11/18/16 22:14 Glucose (Glucose Chew Tab) 4-8 Tablets 4 Tabl... UD PRN PO 10/19/16 22:15 11/18/16 22:14 Dextrose (Dextrose 50% 50ML Syringe) 25-50ML OF 50% DW IV FOR... UD PRN IV 10/19/16 22:15 11/18/16 22:14 Glucagon (Glucagon Inj) 1 mg UD PRN SQ 10/19/16 22:15 11/18/16 22:14 Ondansetron HCl (Zofran Inj) 4 mg Q4H PRN IV 10/19/16 22:45 11/18/16 22:44 Hydromorphone HCl (Dilaudid Inj) 0.2 mg Q4H PRN IV 10/19/16 22:45 11/02/16 22:44 10/24/16 18:14 0.2 MG Diltiazem HCl (Cardizem Cd Cap) 240 mg DAILY PO 10/20/16 09:00 11/19/16 08:59 Future hold 10/30/16 08:22 240 MG Acetaminophen/ Hydrocodone Bitart ([place] 5/325 Tab) 1 tab Q4H PRN PO 10/19/16 23:00 11/02/16 22:59 10/29/16 21:39 1 TAB Nystatin 1 appln BID EXT 10/21/16 21:00 11/20/16 20:59 10/30/16 08:31 1 APPLN Dexamethasone 3.75 mg/Nystatin 30 ml/ Diphenhydramine HCl 300 mg/ Sucrose 45 ml/ Microcrystalline Cellulose 45 ml/ Barcode 1 ea swish in mouth and spit ... BID PRN PO 10/21/16 11:15 11/20/16 11:14 10/22/16 11:13 5 ML Daptomycin/Sodium Chloride (Cubicin IV/Nss 50ml) 62 ml @ 100 mls/hr DAILY@1200 IV 10/22/16 12:00 11/09/16 23:59 10/29/16 12:00 100 MLS/HR Insulin Glargine (Lantus Solostar Pen) 18 unit BID SC 10/22/16 21:00 11/21/16 20:59 10/30/16 08:27 18 UNIT Pantoprazole Sodium (Protonix Tab) 40 mg QAM PO 10/25/16 09:00 11/24/16 08:59 10/30/16 08:23 40 MG Insulin Aspart (novoLOG ASPART) SLIDING SCALE G... ACHS SC 10/27/16 12:00 11/26/16 11:59 10/30/16 08:20 4 UNITS Metoprolol Tartrate (Lopressor Tab) 25 mg BID PO 10/29/16 21:00 11/28/16 20:59 10/30/16 08:23 25 MG Enoxaparin Sodium (Lovenox Inj) 40 mg QAM SQ 10/30/16 09:00 11/29/16 08:59 Future Hold Heparin Sodium (Porcine) 5 ml 5 ml PRN PRN FLUSH 10/29/16 15:30 11/28/16 15:29 10/29/16 18:01 5 ML Furosemide/Syringe (Lasix Inj/ Syringe) 2 ml @ 4 mls/min BETWEENUNITS IV 10/30/16 09:00 10/30/16 12:00 Objective Vital Signs Date Time Temp Pulse Resp B/P Pulse Ox O2 Delivery O2 Flow Rate FiO2 10/30/16 11:36 36.9 84 18 135/84 99 Nasal Cannula 2.0 10/30/16 11:34 36.9 84 18 135/84 99 2.0 10/30/16 10:58 37.3 75 22 126/84 99 2.0 10/30/16 10:44 70 20 133/83 99 2.0 10/30/16 10:23 36.8 74 125/78 100 2.0 10/30/16 08:44 Nasal Cannula 2.0 10/30/16 08:00 94 Nasal Cannula 2.0 10/30/16 04:00 94 Nasal Cannula 2.0 10/30/16 03:42 36.7 84 18 126/80 94 Nasal Cannula 2.0 10/29/16 23:59 99 Nasal Cannula 2.0 10/29/16 22:59 37.1 83 18 133/80 99 Nasal Cannula 2.0 10/29/16 20:00 Nasal Cannula 2.0 10/29/16 19:41 36.9 92 18 138/79 98 Nasal Cannula 2.0 10/29/16 16:00 Nasal Cannula 2.0 10/29/16 15:28 36.9 93 16 128/76 95 Nasal Cannula 2.0 Physical Exam General Appearance: + pertinent finding (lethargic, falling asleep on and off during conversation) Eyes: normal inspection ENT: hearing grossly normal Neck: supple Respiratory/Chest: no respiratory distress, no accessory muscle use Cardiovascular: + pertinent finding (regular rate) Extremities: + pertinent finding (right BKA with dressing in place. Left knee with dressing in place. C/d/I. PICC line in RUE) Neurologic/Psychiatric: + pertinent finding (lethargic) Skin: normal color, warm/dry, no rash Laboratory Results Item Value Date Time Blood Culture - Preliminary Resulted 10/26/16 0830 Blood NO GROWTH TO DATE. Blood Culture - Preliminary Resulted 10/26/16 0825 Blood NO GROWTH TO DATE. Last 24 Hours Test 10/29/16 13:54 10/29/16 15:52 10/29/16 18:00 10/29/16 20:15 Bedside Glucose 281 mg/dl 278 mg/dl 224 mg/dl White Blood Count 14.87 K/uL Red Blood Count 2.38 M/uL Hemoglobin 7.2 g/dL Hematocrit 21.8 % Mean Corpuscular Volume 91.6 fL Mean Corpuscular Hemoglobin 30.3 pg Mean Corpuscular Hemoglobin Concent 33.0 g/dl RDW Standard Deviation 51.6 fL RDW Coefficient of Variation 15.6 % Platelet Count 875 K/uL Mean Platelet Volume 8.7 fL Test 10/30/16 05:56 10/30/16 06:47 10/30/16 10:55 White Blood Count 15.03 K/uL Red Blood Count 2.31 M/uL Hemoglobin 6.9 g/dL Hematocrit 21.2 % Mean Corpuscular Volume 91.8 fL Mean Corpuscular Hemoglobin 29.9 pg Mean Corpuscular Hemoglobin Concent 32.5 g/dl RDW Standard Deviation 51.7 fL RDW Coefficient of Variation 15.3 % Platelet Count 918 K/uL Mean Platelet Volume 8.9 fL Sodium Level 135 mmol/L Potassium Level 3.6 mmol/L Chloride Level 95 mmol/L Carbon Dioxide Level 32 mmol/L Anion Gap 8.0 mmol/L Blood Urea Nitrogen 13 mg/dl Creatinine 0.46 mg/dl Est Creatinine Clear Calc Drug Dose 132.1 ml/min Estimated GFR () 119.3 Estimated GFR (Non- 102.9 BUN/Creatinine Ratio 27.5 Random Glucose 190 mg/dl Calcium Level 7.8 mg/dl Bedside Glucose 195 mg/dl 214 mg/dl Assessment and Plan Diabetic female with left septic TKA- now s/p I & D x 2, wound infection of the right lower extremity- now s/p right BKA, and MRSA bacteremia. RUBI showed no evidence of vegetation. She continues on Daptomycin. Her most recent blood cultures are showing no growth to date. PICC line in place. She will need 6 weeks of IV abx from this first negative blood cultures- tentative stop date 12/07. Unfortunately, this patient has a Vancomycin allergy. We will need to either continue on IV Daptomycin or IV Ceftaroline. Unsure of which rehab center (if any) will accept this patient on these medications. Also could consider IV Dalbavancin every week or every other week- not sure how this would work with rehab. Will need to discuss with CM. We will follow. PROVIDER ADDENDUM: Patient reviewed with Ms. Alberto. Agree with above assessment.
--- NOTE | 2016-10-30 11:53 | PROGRESS NOTE ---
DATE: 10/30/2016 FOLLOWUP VISIT SUBJECTIVE: The patient is a 66-year-old female who was admitted with sepsis due to osteomyelitis and is status post right BKA as well as debridement of the left knee due to a septic joint. She had an uneventful night; however, her hemoglobin is now 6.8 and she is receiving additional units of blood. There is no evidence of bleeding anywhere. Hematology has been consulted. From a cardiac standpoint, her rhythm remains in sinus mechanism with PACs, but it seems to be less frequent since we increased her beta jodie. She has no cardiac complaints today. OBJECTIVE: GENERAL: She is alert and oriented in no acute distress. VITAL SIGNS: Blood pressure is 130/70 and pulse is irregular at 70 beats per minute. She is afebrile. HEENT: Normocephalic. Pupils are equal and reactive to light. Extraocular muscles are intact bilaterally. NECK: The neck veins are flat. Carotids have good upstrokes bilaterally without bruits. Thyroid is nonpalpable. RESPIRATORY: Breath sounds equal bilaterally and clear to auscultation. CARDIOVASCULAR: Heart has an irregular rhythm. Normal S1 and S2. No S3 or S4. No cardiac rubs or murmurs. GASTROINTESTINAL: Abdomen is soft and nontender without organomegaly. EXTREMITIES: Free of edema. She has a right BKA. NEUROLOGIC: Grossly intact. SKIN: Warm to touch. LYMPH NODES: Negative to palpation. LABORATORY DATA: Hemoglobin is 6.9, WBC count is 15, and platelet count is 918,000. Creatinine is 0.46 and BUN is 13. IMPRESSION: 1. Status post sepsis due to osteomyelitis of the right foot and left septic knee. 2. Status post below knee amputation of the right leg and debridement of the left knee. 3. Paroxysmal atrial arrhythmias. 4. Anemia of undetermined etiology. RECOMMENDATIONS: At this point, I would continue the current dose of metoprolol. She is currently clinically stable. We will await the recommendations regarding hematology.
[2016-10-30] MEDS ORDERED: DAPTOmycin 500 MG VIAL IV ONE (11:59)
[2016-10-30] MEDS: DAPTOmycin IV 600 MG in SODIUM CHLORIDE 0.9% 50ML 50 ML IV SCH (12:17)
--- NOTE | 2016-10-30 22:46 | Progress Note ---
Medicine Progress Note Date & Time of Visit: Oct 30, 2016 at 12:31. Subjective 66 yoF admitted for sepsis 2/2 infected L knee s/p recent arthoplasty and known recent amputations of R toes with bone exposure. She is s/p R BKA and has MRSA + bacteremia on Dapto -reports dizziness this morning -states pain is controlled -tolerating PO otherwise asymptomatic Objective Last 8 Hrs Date Time Temp Pulse Resp B/P Pulse Ox O2 Delivery O2 Flow Rate FiO2 10/30/16 11:36 36.9 84 18 135/84 99 Nasal Cannula 2.0 10/30/16 11:34 36.9 84 18 135/84 99 2.0 10/30/16 10:58 37.3 75 22 126/84 99 2.0 10/30/16 10:44 70 20 133/83 99 2.0 10/30/16 10:23 36.8 74 125/78 100 2.0 10/30/16 08:44 Nasal Cannula 2.0 10/30/16 08:00 94 Nasal Cannula 2.0 Physical Exam: GEN: Obese, in no acute distress, alert and appropriate HEENT: NC/AT, normal sclerae CARDIO: reg rate, S1/2 heard without m/g/r LUNGS: CTA bilaterally, no crackles, rales or wheezes, good diaphragmatic excursion ABD: soft, non-tender, non-distended, no rebound or guarding,+BS EXTREMITY: LLE NVI, wrapping to L knee area that is c/d/i (wound vac in place). RLE amputated below the knee with dressing on stump that is c/d/i. PICC line in place on RUE. NEURO: no gross focal deficits MUSC: moves all extremities equally SKIN: warm and dry, Stage II wounds on buttock either side approx 4x2cm. Optifoam in place and is on EHOB mattress Laboratory Results: Last 24 Hours Test 10/29/16 13:54 10/29/16 15:52 10/29/16 18:00 10/29/16 20:15 Bedside Glucose 281 mg/dl 278 mg/dl 224 mg/dl White Blood Count 14.87 K/uL Red Blood Count 2.38 M/uL Hemoglobin 7.2 g/dL Hematocrit 21.8 % Mean Corpuscular Volume 91.6 fL Mean Corpuscular Hemoglobin 30.3 pg Mean Corpuscular Hemoglobin Concent 33.0 g/dl RDW Standard Deviation 51.6 fL RDW Coefficient of Variation 15.6 % Platelet Count 875 K/uL Mean Platelet Volume 8.7 fL Test 10/30/16 05:56 10/30/16 06:47 10/30/16 10:55 White Blood Count 15.03 K/uL Red Blood Count 2.31 M/uL Hemoglobin 6.9 g/dL Hematocrit 21.2 % Mean Corpuscular Volume 91.8 fL Mean Corpuscular Hemoglobin 29.9 pg Mean Corpuscular Hemoglobin Concent 32.5 g/dl RDW Standard Deviation 51.7 fL RDW Coefficient of Variation 15.3 % Platelet Count 918 K/uL Mean Platelet Volume 8.9 fL Sodium Level 135 mmol/L Potassium Level 3.6 mmol/L Chloride Level 95 mmol/L Carbon Dioxide Level 32 mmol/L Anion Gap 8.0 mmol/L Blood Urea Nitrogen 13 mg/dl Creatinine 0.46 mg/dl Est Creatinine Clear Calc Drug Dose 132.1 ml/min Estimated GFR () 119.3 Estimated GFR (Non- 102.9 BUN/Creatinine Ratio 27.5 Random Glucose 190 mg/dl Calcium Level 7.8 mg/dl Bedside Glucose 195 mg/dl 214 mg/dl Assessment & Plan 66 yoF admitted for sepsis 2/2 infected L knee s/p recent arthoplasty and known recent amputations of R toes with bone exposure. She is s/p R BKA and has MRSA + bacteremia on Dapto 1. MRSA Bacteremia 2/2 L knee infection s/p washout. Post-op pain appears controlled. Pt had left total knee replacement many years ago that became infected and she is s/p I and D of left TKA this admission; MRSA in blood and knee washout. She is tachy overnight thought to be 2/2 atrial arrythmia. Cardiology is consulted to assist with this (see below). On Dapto 2/2 allergy to Vanc, Plan for picc line today as blood cultures are negative from 10/26. s/p RUBI with no vegetation seen. 2. PVD with subsequent R BKA on 10/22/16 for infection of right foot with osteomyelitis. Wound care per Ortho. 3. DVT- bilateral lower extremity, s/p IVC filter by vascular surgery, heparin D/C 10/29. Appreciate heme recs. 4. Atrial tachycardia- RVR on initial presentation with sepsis--controlled with IV Cardizem. Pt had episodes of tachycardia on the floor and was placed back on telemetry for closer watch on her rhythm. Review of tele reveals burst of sinus tach overnight into the 120-130s and heart rate has decreased this morning. Per Cardiology Metoprolol will be increased to 25mg BID in addition to the Dilt 240 daily. No atrial fibrillation present at this time. Stopping heparin drip in setting of anemia with IVC filter in place (DVTs) 5. Anemia- multifactorial 2/2 acute blood loss anemia (wound vac in place), daily phlebotomy and chronic disease. She has required 4 units blood this admission. Patient is now dizzy with Hb 6/9. Two more units of blood were ordered for transfusion now. 6. DMII-glucose not at goal, holding oral meds, cont Lantus and ISS; appreciate glycemic pharmacist recs. 7 Thrombocytosis->900K, likely reactive in setting of recent surgery and active infection 8. Leukocytosis-see #7-improved 9. Stage II buttock wounds-Optifoam in place, daily nursing assessment for wound care, EHOB mattress in place. FULL CODE DVT PROPHYLAXIS: Lovenox Dispo to rehab with IV abx for next 4-6 weeks when bed available. Jamia Nichols DO [facility] Hospitalist Continued [facility] stay due to: multiple IV medications needed Discharge planning: uncertain Current Inpatient Medications: Current Inpatient Medications Medications (Trade) Dose Ordered Sig/Denisse Route Start Time Stop Time Status Last Admin Dose Admin Acetaminophen (Tylenol Tab) 650 mg Q4H PRN PO 10/19/16 22:00 11/18/16 21:59 Glucose (Glucose 40% Gel) 15-30 GRAMS 15 GRAMS... UD PRN PO 10/19/16 22:15 11/18/16 22:14 Glucose (Glucose Chew Tab) 4-8 Tablets 4 Tabl... UD PRN PO 10/19/16 22:15 11/18/16 22:14 Dextrose (Dextrose 50% 50ML Syringe) 25-50ML OF 50% DW IV FOR... UD PRN IV 10/19/16 22:15 11/18/16 22:14 Glucagon (Glucagon Inj) 1 mg UD PRN SQ 10/19/16 22:15 11/18/16 22:14 Ondansetron HCl (Zofran Inj) 4 mg Q4H PRN IV 10/19/16 22:45 11/18/16 22:44 Hydromorphone HCl (Dilaudid Inj) 0.2 mg Q4H PRN IV 10/19/16 22:45 11/02/16 22:44 10/24/16 18:14 0.2 MG Diltiazem HCl (Cardizem Cd Cap) 240 mg DAILY PO 10/20/16 09:00 11/19/16 08:59 Future hold 10/30/16 08:22 240 MG Acetaminophen/ Hydrocodone Bitart ([place] 5/325 Tab) 1 tab Q4H PRN PO 10/19/16 23:00 11/02/16 22:59 10/29/16 21:39 1 TAB Nystatin 1 appln BID EXT 10/21/16 21:00 11/20/16 20:59 10/30/16 08:31 1 APPLN Dexamethasone 3.75 mg/Nystatin 30 ml/ Diphenhydramine HCl 300 mg/ Sucrose 45 ml/ Microcrystalline Cellulose 45 ml/ Barcode 1 ea swish in mouth and spit ... BID PRN PO 10/21/16 11:15 11/20/16 11:14 10/22/16 11:13 5 ML Daptomycin/Sodium Chloride (Cubicin IV/Nss 50ml) 62 ml @ 100 mls/hr DAILY@1200 IV 10/22/16 12:00 11/09/16 23:59 10/30/16 12:17 100 MLS/HR Insulin Glargine (Lantus Solostar Pen) 18 unit BID SC 10/22/16 21:00 11/21/16 20:59 10/30/16 08:27 18 UNIT Pantoprazole Sodium (Protonix Tab) 40 mg QAM PO 10/25/16 09:00 11/24/16 08:59 10/30/16 08:23 40 MG Insulin Aspart (novoLOG ASPART) SLIDING SCALE G... ACHS SC 10/27/16 12:00 11/26/16 11:59 10/30/16 12:05 12 UNITS Metoprolol Tartrate (Lopressor Tab) 25 mg BID PO 10/29/16 21:00 11/28/16 20:59 10/30/16 08:23 25 MG Enoxaparin Sodium (Lovenox Inj) 40 mg QAM SQ 10/30/16 09:00 11/29/16 08:59 Future Hold Heparin Sodium (Porcine) (Heparin 10 Unit/ ml 5 ml Flush) 5 ml PRN PRN FLUSH 10/29/16 15:30 11/28/16 15:29 10/29/16 18:01 5 ML
[2016-10-31 03:05] VITALS: BP 151/78; PULSE 85; TEMP 36.9; O2SAT 94
[2016-10-31 05:29] LABS: HEMATOCRIT 26.5 % (37-47); MEAN CELL VOLUME 88.9 fL (80-100); MEAN CORPUSCULAR HEMOGLOBIN 29.2 pg (25-34); MEAN CORPUSCULAR HGB CONC 32.8 g/dl (32-36); MEAN PLATELET VOLUME 8.5 fL (7.4-10.4); PLATELET COUNT 806 K/uL (130-400); RED BLOOD COUNT 2.98 M/uL (4.2-5.4); WHITE BLOOD COUNT 14.35 K/uL (4.8-10.8)
[2016-10-31 06:20] LABS: BUN/CREATININE RATIO 25.5 (10-20); CALCIUM 7.9 mg/dl (8.5-10.1); CREATININE 0.44 mg/dl (0.60-1.20); POTASSIUM 3.6 mmol/L (3.5-5.1)
[2016-10-31 07:31] VITALS: BP 151/66; PULSE 78; TEMP 36.7; O2SAT 98
[2016-10-31] MEDS: INSULIN ASPART 100 UNITS/ML 3 ML PEN SC SCH ×4 (08:50→21:25)
[2016-10-31] MEDS: INSULIN GLARGINE SOLOSTAR 100 UNITS/ML 3 ML PEN SC SCH ×2 (08:51→21:24)
[2016-10-31] MEDS: DILTIAZEM HCL 240 MG CAPCR PO SCH (08:52)
[2016-10-31] MEDS: METOPROLOL TARTRATE 25 MG TAB PO SCH ×2 (08:52→21:19)
[2016-10-31] MEDS: NYSTATIN POWDER 15GM BTL EXT SCH ×2 (08:52→21:20)
[2016-10-31] MEDS: POLYETHYLENE (MIRALAX) 17 GM PACK PO SCH (08:53)
[2016-10-31] MEDS: PANTOprazole SOD 40 MG TAB PO SCH (08:53)
[2016-10-31] MEDS: HYDROCODONE/ACETAMOPHEN 5/325MG TAB PO PRN (09:57)
[2016-10-31 11:31] VITALS: BP 148/72; PULSE 82; TEMP 36.9; O2SAT 94
[2016-10-31] MEDS: DAPTOmycin IV 600 MG in SODIUM CHLORIDE 0.9% 50ML 50 ML IV SCH (12:00)
--- NOTE | 2016-10-31 14:10 | Orthopedic Progress Note ---
Orthopedic Progress Note Date of Service Oct 31, 2016. Subjective Additional Notes: Pt sleeping on arrival to room. Easily awoken. No new complaints. Pain in both LE's when moving about but otherwise comfortable. Objective Prevena wound vac removed from left knee. One area of the wound at the proximal third has a bruised area that may be early stage of skin necrosis(?) about 1cm x 1.5 cm. Otherwise, Left knee wound benign. Right BKA dressing removed. Wound very benign and redressed. Date Time Temp Pulse Resp B/P Pulse Ox O2 Delivery O2 Flow Rate FiO2 10/31/16 12:00 Nasal Cannula 2.0 10/31/16 11:31 36.9 82 18 148/72 94 10/31/16 08:00 Nasal Cannula 2.0 10/31/16 07:31 36.7 78 18 151/66 98 10/31/16 04:00 Nasal Cannula 2.0 10/31/16 03:05 36.9 85 18 151/78 94 Nasal Cannula 2.0 10/31/16 00:00 Nasal Cannula 2.0 10/30/16 22:50 36.9 88 18 159/81 98 Nasal Cannula 2.5 10/30/16 20:00 Nasal Cannula 2.0 10/30/16 19:13 36.7 76 16 129/63 95 10/30/16 16:00 94 Nasal Cannula 2.0 10/30/16 15:59 36.4 81 22 147/84 99 2.0 10/30/16 15:57 36.4 83 22 147/84 99 Nasal Cannula 2.0 10/30/16 15:27 84 18 148/90 100 Nasal Cannula 2.0 10/30/16 14:15 90 18 139/92 99 10/30/16 13:54 36.9 80 16 126/80 95 2.0 Laboratory Results 24 Hours: Test 3 05:10 Hematocrit 26.5 % Hemoglobin 8.7 g/dL Assessment & Plan Assessment: POD #8 s/p right BKA -currently on dapto due to allergy to vanco, 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 POD #7 s/p Left TKA I&D w/ poly exchange and Anbx beads Plan: Pt states that she is choosing to go to [facility] (SNF) Referral made by CM Plan to continue daily dressing changes on the Right lower extremity. Left knee wound can be open to the air. Will need to follow the small bruised area noted above Physical therapy can continue for the Left lower extremity. TKA protocol. WBAT. Antibx as per ID Team FOLLOW UP APPTS MADE FOR PATIENT TO SEE ELLEN CARSON AND MARIA ON 11/07/15 FOR WOUND CHECKS AND POSSIBLE SUTURE REMOVAL. 12:50PM FOR DR CARSON; 3:40PM FOR DR SIFUENTES Inhouse Planning Pain Management: [place], Dilaudid, PO Tylenol DVT Prophylaxis: TEDs, SCDs, Heparin Drip Discharge Planning Discharge Planning: long term facility
[2016-10-31 15:18] VITALS: BP 132/82; PULSE 78; TEMP 36.7; O2SAT 93
--- NOTE | 2016-10-31 17:23 | Progress Note ---
Medicine Progress Note Date & Time of Visit: Oct 31, 2016 at 15:51. Subjective 66 yoF admitted for sepsis 2/2 infected L knee s/p recent arthoplasty and known recent amputations of R toes with bone exposure. She is s/p R BKA and has MRSA + bacteremia on Dapto -persistent lightheadedness reported today -no chest pain, sob or other symptoms at this time -pain is controlled "ok" -pt PT notes, patient is performing supine exercises only and has not sit up on the edge of the bed yet. Objective Last 8 Hrs Date Time Temp Pulse Resp B/P Pulse Ox O2 Delivery O2 Flow Rate FiO2 10/31/16 15:18 36.7 78 18 132/82 93 Room Air 10/31/16 12:00 Nasal Cannula 2.0 10/31/16 11:31 36.9 82 18 148/72 94 10/31/16 08:00 Nasal Cannula 2.0 Physical Exam: GEN: Obese, in no acute distress, alert and appropriate HEENT: NC/AT, normal sclerae CARDIO: reg rate, S1/2 heard without m/g/r LUNGS: CTA bilaterally, no crackles, rales or wheezes, good diaphragmatic excursion ABD: soft, non-tender, non-distended, no rebound or guarding,+BS EXTREMITY: LLE NVI, wrapping to L knee area that is c/d/i (wound vac in place). RLE amputated below the knee with dressing on stump that is c/d/i. PICC line in place on RUE. NEURO: no gross focal deficits MUSC: moves all extremities equally SKIN: warm and dry, Stage II wounds on buttock either side approx 4x2cm. Optifoam in place and is on EHOB mattress Laboratory Results: 10/31/16 05:10 10/31/16 05:10 Test 10/19/16 22:40 10/20/16 05:45 10/20/16 08:25 10/20/16 16:23 Hepatitis C Antibody Screen NEG (NEG) Erythrocyte Sedimentation Rate 20 mm/hr (0-21) Estimated Average Glucose 174 mg/dl Hemoglobin A1c 7.7 % (4.5-5.6) C-Reactive Protein 41.00 mg/dl (0-0.29) Thyroid Stimulating Hormone (TSH) 0.610 uIu/ml (0.300-4.500) Body Fluid Source KNEE LEFT Body Fluid Color REDISH Body Fluid Appearance CLOUDY Body Fluid WBC 271392 /uL Body Fluid RBC 355000 /uL Body Fluid Polynuclear WBCs 65.1 % Body Fluid Polynuclear WBCs (%) 65.1 % Body Fluid Mononuclear WBCs (%) 34.9 % Body Fluid Mononuclear Cells 34.9 % Absolute Reticulocyte Count 0.04 10^6/uL (0.02-0.10) Percent Reticulocyte Count 1.6 % (0.5-2.0) Iron Level 14 mcg/dl (35-150) Total Iron Binding Capacity 83 mcg/dl (250-450) Transferrin 66 mg/dl (200-360) Transferrin % Saturation 15 % (15-50) Ferritin 664.3 ng/ml (8.0-388.0) Lactate Dehydrogenase 172 U/L (84-246) Test 10/20/16 17:22 10/21/16 00:25 10/21/16 06:35 10/21/16 20:14 Haptoglobin 665 MG/DL (43-212) Procalcitonin 11.77 ng/mL (0-0.5) Random Cortisol 44.05 mcg/dl Dohle Bodies 1+ Lactic Acid Level 0.9 mmol/L (0.4-2.0) Phosphorus Level 1.6 mg/dl (2.5-4.9) Prothrombin Time 12.1 SECONDS (9.0-12.0) Prothromb Time International Ratio 1.1 (0.9-1.1) Test 10/23/16 06:01 10/24/16 08:30 10/27/16 05:20 10/28/16 05:34 Neutrophils % (Manual) 81.9 % Lymphocytes % (Manual) 6.0 % Monocytes % (Manual) 4.3 % Eosinophils % (Manual) 4.3 % Metamyelocytes % 2.6 % Myelocytes % 0.9 % Neutrophils # (Manual) 10.88 K/uL (1.4-6.5) Total Absolute Neutrophils 10.88 K/uL (1.4-6.5) Lymphocytes # (Manual) 0.80 K/uL (1.2-3.4) Total Absolute Lymphocytes 0.80 K/uL (1.2-3.4) Monocytes # (Manual) 0.57 K/uL (0.11-0.59) Eosinophils # (Manual) 0.57 K/uL (0-0.5) Metamyelocytes # 0.35 K/uL (0-0) Myelocytes # 0.12 K/uL (0-0) Large Platelets 1+ Anisocytosis PRESENT Total Bilirubin 0.3 mg/dl (0.2-1) Aspartate Amino Transf (AST/SGOT) 15 U/L (15-37) Alanine Aminotransferase (ALT/SGPT) 12 U/L (12-78) Alkaline Phosphatase 94 U/L (45-117) Total Protein 5.4 gm/dl (6.4-8.2) Albumin 1.1 gm/dl (3.4-5.0) Globulin 4.3 gm/dl (2.5-4.0) Albumin/Globulin Ratio 0.3 (0.9-2) Bedside Hemoglobin 9.2 g/dl (12.0-16.0) Bedside Hematocrit 27 % (37-47) Bedside Sodium 134 mEq/L (135-144) Bedside Potassium 4.3 mEq/L (3.3-5.0) Bedside Chloride 97 mEq/L (101-112) Bedside Total CO2 25 mEq/l (24-31) Bedside Blood Urea Nitrogen 9 mg/dl (7-18) Bedside Creatinine 0.5 mg/dl (0.6-1.3) Bedside Glucose (other) 151 mg/dl (70-99) Bedside Ionized Calcium (Ricci) 1.00 mmol/l (1.12-1.32) Toxic Granulation 1+ Total Creatine Kinase 93 U/L (26-192) Immature Granulocyte % (Auto) 4.6 % White Blood Count 17.59 K/uL (4.8-10.8) Red Blood Count 2.80 M/uL (4.2-5.4) Hemoglobin 8.4 g/dL (12.0-16.0) Hematocrit 24.9 % (37-47) Mean Corpuscular Volume 88.9 fL (80-100) Mean Corpuscular Hemoglobin 30.0 pg (25-34) Mean Corpuscular Hemoglobin Concent 33.7 g/dl (32-36) Platelet Count 906 K/uL (130-400) Mean Platelet Volume 9.0 fL (7.4-10.4) Neutrophils (%) (Auto) 77.4 % Lymphocytes (%) (Auto) 8.4 % Monocytes (%) (Auto) 6.0 % Eosinophils (%) (Auto) 3.3 % Basophils (%) (Auto) 0.3 % Neutrophils # (Auto) 13.62 K/uL (1.4-6.5) Lymphocytes # (Auto) 1.47 K/uL (1.2-3.4) Monocytes # (Auto) 1.05 K/uL (0.11-0.59) Eosinophils # (Auto) 0.58 K/uL (0-0.5) Basophils # (Auto) 0.06 K/uL (0-0.2) Immature Granulocyte # (Auto) 0.81 K/uL (0.00-0.02) Red Blood Cell Morphology Unremarkable Test 10/28/16 14:01 10/29/16 06:21 10/30/16 00:00 10/30/16 20:00 Activated Partial Thromboplast Time 49.3 SECONDS (21.0-31.0) Partial Thromboplastin Ratio 1.9 Nucleated RBC Absolute Count (auto) 0.39 K/uL (0-0) Nucleated Red Blood Cells % 2.4 % Toxic Vacuolation 1+ Polychromasia 1+ Magnesium Level 2.0 mg/dl (1.8-2.4) Stool Occult Blood NEGATIVE (NEGATIVE) Test 10/31/16 05:10 10/31/16 16:09 Red Blood Count 2.98 M/uL (4.2-5.4) Mean Corpuscular Volume 88.9 fL (80-100) Mean Corpuscular Hemoglobin 29.2 pg (25-34) Mean Corpuscular Hemoglobin Concent 32.8 g/dl (32-36) RDW Standard Deviation 50.0 fL (36.4-46.3) RDW Coefficient of Variation 15.3 % (11.5-14.5) Mean Platelet Volume 8.5 fL (7.4-10.4) Anion Gap 7.0 mmol/L (3-11) Est Creatinine Clear Calc Drug Dose 128.6 ml/min Estimated GFR () 121.1 Estimated GFR (Non- 104.5 BUN/Creatinine Ratio 25.5 (10-20) Calcium Level 7.9 mg/dl (8.5-10.1) Bedside Glucose 212 mg/dl (70-90) Date/Time Source Procedure Growth Status 10/26/16 08:30 Blood Blood Culture - Preliminary NO GROWTH TO DATE. Resulted 10/21/16 12:30 Joint Fluid/Space (Synovial) Knee Left Gram Stain - Final Complete 10/21/16 12:30 Bacterial Culture - Final Staphylococcus Aureus Complete 10/20/16 00:00 Nasal MRSA DNA Surveillance Screen - Final Specimen Positive for MRSA by DNA Probe Complete 10/20/16 00:00 Ulcer Foot Right Gram Stain - Final Complete 10/20/16 00:00 Wound Culture - Final Staphylococcus Aureus Complete Last 24 Hours Test 10/30/16 15:54 10/30/16 20:00 10/30/16 20:19 10/31/16 05:10 Bedside Glucose 190 mg/dl 235 mg/dl White Blood Count 14.35 K/uL Red Blood Count 2.98 M/uL Hemoglobin 8.7 g/dL Hematocrit 26.5 % Mean Corpuscular Volume 88.9 fL Mean Corpuscular Hemoglobin 29.2 pg Mean Corpuscular Hemoglobin Concent 32.8 g/dl RDW Standard Deviation 50.0 fL RDW Coefficient of Variation 15.3 % Platelet Count 806 K/uL Mean Platelet Volume 8.5 fL Sodium Level 135 mmol/L Potassium Level 3.6 mmol/L Chloride Level 94 mmol/L Carbon Dioxide Level 34 mmol/L Anion Gap 7.0 mmol/L Blood Urea Nitrogen 11 mg/dl Creatinine 0.44 mg/dl Est Creatinine Clear Calc Drug Dose 128.6 ml/min Estimated GFR () 121.1 Estimated GFR (Non- 104.5 BUN/Creatinine Ratio 25.5 Random Glucose 146 mg/dl Calcium Level 7.9 mg/dl Test 10/31/16 06:26 10/31/16 11:17 Bedside Glucose 157 mg/dl 193 mg/dl Assessment & Plan 66 yoF admitted for sepsis 2/2 infected L knee s/p recent arthoplasty and known recent amputations of R toes with bone exposure. She is s/p R BKA and has MRSA + bacteremia on Dapto 1. MRSA Bacteremia 2/2 L knee infection s/p washout. Post-op pain appears controlled. Pt had left total knee replacement many years ago that became infected and she is s/p I and D of left TKA this admission; MRSA in blood and knee washout. On Dapto 2/2 allergy to Vanc, Plan for picc line today as blood cultures are negative from 10/26. s/p RUBI with no vegetation seen. 2. PVD with subsequent R BKA on 10/22/16 for infection of right foot with osteomyelitis. Wound care per Ortho. 3. DVT- bilateral lower extremity, s/p IVC filter by vascular surgery, heparin D/C 10/29. Hematology following 4. Atrial tachycardia- RVR on initial presentation with sepsis--controlled with IV Cardizem. Pt had episodes of tachycardia on the floor and was placed back on telemetry for closer watch on her rhythm. No atrial fibrillation present at this time. Tachycardia has improved on the Metoprolol/Dilt combo per Cards. 5. Anemia- multifactorial 2/2 acute blood loss anemia (wound vac in place), daily phlebotomy and chronic disease. She has required 6 units blood this admission with good response to the blood yesterday, however, she is still reporting some lightheadedness when she turns her head a certain way 6. Lightheadedness-not much better after transfused two units, may need to give one more unit. Will wait another day and see how she feels. H/H is currently 8.7/26.5. Also of note, patient continues to lay in bed and refuses to sit up on the edge of the bed--this may be related. 6. DMII-glucose not at goal, holding oral meds, cont Lantus and ISS; appreciate glycemic pharmacist recs. 7 Thrombocytosis-806K, likely reactive in setting of recent surgery and active infection 8. Leukocytosis-see #7-improved to 14K 9. Stage II buttock wounds-Optifoam in place, daily nursing assessment for wound care, EHOB mattress in place. FULL CODE DVT PROPHYLAXIS: Lovenox-held 2/2 anemia/restart tomorrow Dispo to rehab with IV abx for next 4-6 weeks when bed available. [facility] Continued [facility] stay due to: multiple IV medications needed Discharge planning: uncertain Current Inpatient Medications: Current Inpatient Medications Medications (Trade) Dose Ordered Sig/Denisse Route Start Time Stop Time Status Last Admin Dose Admin Acetaminophen (Tylenol Tab) 650 mg Q4H PRN PO 10/19/16 22:00 11/18/16 21:59 Glucose (Glucose 40% Gel) 15-30 GRAMS 15 GRAMS... UD PRN PO 10/19/16 22:15 11/18/16 22:14 Glucose (Glucose Chew Tab) 4-8 Tablets 4 Tabl... UD PRN PO 10/19/16 22:15 11/18/16 22:14 Dextrose (Dextrose 50% 50ML Syringe) 25-50ML OF 50% DW IV FOR... UD PRN IV 10/19/16 22:15 11/18/16 22:14 Glucagon (Glucagon Inj) 1 mg UD PRN SQ 10/19/16 22:15 11/18/16 22:14 Ondansetron HCl (Zofran Inj) 4 mg Q4H PRN IV 10/19/16 22:45 11/18/16 22:44 Hydromorphone HCl (Dilaudid Inj) 0.2 mg Q4H PRN IV 10/19/16 22:45 11/02/16 22:44 10/24/16 18:14 0.2 MG Diltiazem HCl (Cardizem Cd Cap) 240 mg DAILY PO 10/20/16 09:00 11/19/16 08:59 Future hold 10/31/16 08:52 240 MG Acetaminophen/ Hydrocodone Bitart ([place] 5/325 Tab) 1 tab Q4H PRN PO 10/19/16 23:00 11/02/16 22:59 10/31/16 09:57 1 TAB Nystatin 1 appln BID EXT 10/21/16 21:00 11/20/16 20:59 10/31/16 08:52 1 APPLN Dexamethasone 3.75 mg/Nystatin 30 ml/ Diphenhydramine HCl 300 mg/ Sucrose 45 ml/ Microcrystalline Cellulose 45 ml/ Barcode 1 ea swish in mouth and spit ... BID PRN PO 10/21/16 11:15 11/20/16 11:14 10/22/16 11:13 5 ML Daptomycin/Sodium Chloride (Cubicin IV/Nss 50ml) 62 ml @ 100 mls/hr DAILY@1200 IV 10/22/16 12:00 11/09/16 23:59 10/31/16 12:00 100 MLS/HR Insulin Glargine (Lantus Solostar Pen) 18 unit BID SC 10/22/16 21:00 11/21/16 20:59 10/31/16 08:51 18 UNIT Pantoprazole Sodium (Protonix Tab) 40 mg QAM PO 10/25/16 09:00 11/24/16 08:59 10/31/16 08:53 40 MG Insulin Aspart (novoLOG ASPART) SLIDING SCALE G... ACHS SC 10/27/16 12:00 11/26/16 11:59 10/31/16 11:58 6 UNITS Metoprolol Tartrate (Lopressor Tab) 25 mg BID PO 10/29/16 21:00 11/28/16 20:59 10/31/16 08:52 25 MG Enoxaparin Sodium (Lovenox Inj) 40 mg QAM SQ 10/30/16 09:00 11/29/16 08:59 Future Hold Heparin Sodium (Porcine) (Heparin 10 Unit/ ml 5 ml Flush) 5 ml PRN PRN FLUSH 10/29/16 15:30 11/28/16 15:29 10/29/16 18:01 5 ML Polyethylene (Miralax Powder Packet) 17 gm DAILY PO 10/31/16 09:00 11/30/16 08:59 10/31/16 08:53 17 GM
[2016-10-31 19:13] VITALS: BP 135/84; PULSE 81; TEMP 36.9; O2SAT 91
[2016-10-31 23:17] VITALS: BP 150/84; PULSE 83; TEMP 36.9; O2SAT 90
[2016-11-01] VITALS (7 sets, daily range): BP systolic 134–151; BP diastolic 73–85; PULSE 75–104; TEMP 36.6–37; O2SAT 91–95
[2016-11-01 06:19] LABS: HEMATOCRIT 27.2 % (37-47); MEAN CELL VOLUME 89.5 fL (80-100); MEAN CORPUSCULAR HEMOGLOBIN 28.9 pg (25-34); MEAN CORPUSCULAR HGB CONC 32.4 g/dl (32-36); MEAN PLATELET VOLUME 8.5 fL (7.4-10.4); PLATELET COUNT 854 K/uL (130-400); RED BLOOD COUNT 3.04 M/uL (4.2-5.4); WHITE BLOOD COUNT 13.21 K/uL (4.8-10.8)
[2016-11-01 06:58] LABS: BUN/CREATININE RATIO 19.7 (10-20); CALCIUM 8.2 mg/dl (8.5-10.1); CREATININE 0.48 mg/dl (0.60-1.20)
[2016-11-01] MEDS: POLYETHYLENE (MIRALAX) 17 GM PACK PO SCH (08:37)
[2016-11-01] MEDS: INSULIN ASPART 100 UNITS/ML 3 ML PEN SC SCH ×4 (08:37→20:59)
[2016-11-01] MEDS: INSULIN GLARGINE SOLOSTAR 100 UNITS/ML 3 ML PEN SC SCH ×2 (08:37→20:57)
[2016-11-01] MEDS: NYSTATIN POWDER 15GM BTL EXT SCH ×2 (08:38→20:54)
[2016-11-01] MEDS: METOPROLOL TARTRATE 25 MG TAB PO SCH ×2 (08:39→20:54)
[2016-11-01] MEDS: DILTIAZEM HCL 240 MG CAPCR PO SCH (08:39)
[2016-11-01] MEDS: PANTOprazole SOD 40 MG TAB PO SCH (08:39)
--- NOTE | 2016-11-01 09:14 | Orthopedic Progress Note ---
Orthopedic Progress Note Date of Service Nov 01, 2016. Subjective Reports: feeling well, Denies: SOB, chest pain, light headedness, nausea / vomiting Objective calves soft nontender, N/V intact, incision C/D/I, A&O x3, toes mobile Date Time Temp Pulse Resp B/P Pulse Ox O2 Delivery O2 Flow Rate FiO2 11/01/16 07:57 36.9 104 18 148/85 95 Room Air 11/01/16 04:00 Room Air 11/01/16 03:25 37.0 86 19 151/74 91 Room Air 10/31/16 23:59 Room Air 10/31/16 23:17 36.9 83 19 150/84 90 Room Air 10/31/16 20:00 Room Air 10/31/16 19:13 36.9 81 18 135/84 91 Room Air 10/31/16 16:00 Nasal Cannula 2.0 10/31/16 15:18 36.7 78 18 132/82 93 Room Air 10/31/16 12:00 Nasal Cannula 2.0 10/31/16 11:31 36.9 82 18 148/72 94 Laboratory Results 24 Hours: Test 11/01/16 05:54 Hematocrit 27.2 % Hemoglobin 8.8 g/dL Assessment & Plan Assessment: POD #9 s/p right BKA -currently on dapto due to allergy to vanco, PICC for half-way Abx, likely 6 weeks. POD #8 s/p Left TKA I&D w/ poly exchange and Anbx beads Plan: Pt states that she is choosing to go to [facility] (SNF) Referral made by CM , WAITING ON ACCEPTANCE. Plan to continue daily dressing changes on the Right lower extremity. Left knee wound can be open to the air. Will need to follow the small bruised area noted above Physical therapy can continue for the Left lower extremity. TKA protocol. WBAT. Antibx as per ID Team FOLLOW UP APPTS MADE FOR PATIENT TO SEE ELLEN CARSON AND MARIA ON 11/07/15 FOR WOUND CHECKS AND POSSIBLE SUTURE REMOVAL. 12:50PM FOR DR CARSON; 3:40PM FOR DR SIFUENTES Inhouse Planning Pain Management: [place], Dilaudid, PO Tylenol DVT Prophylaxis: TEDs, SCDs, Heparin Drip Discharge Planning Discharge Planning: intermediate facility
[2016-11-01] MEDS: HYDROCODONE/ACETAMOPHEN 5/325MG TAB PO PRN ×2 (09:51→18:56)
[2016-11-01] MEDS: ENOXAPARIN 40 MG/0.4 ML SYR SQ SCH (09:51)
[2016-11-01] MEDS: DAPTOmycin IV 600 MG in SODIUM CHLORIDE 0.9% 50ML 50 ML IV SCH (12:18)
--- NOTE | 2016-11-01 17:39 | Progress Note ---
Medicine Progress Note Date & Time of Visit: Nov 01, 2016 at 12:31. Subjective 66 yoF admitted for sepsis 2/2 infected L knee s/p recent arthoplasty and known recent amputations of R toes with bone exposure. She is s/p R BKA and has MRSA + bacteremia on Dapto -pain controlled today -noted to not be participating fully in PT sessions, for example, she is fearful of sitting on the edge of the bed. -discussed this with her today and she is afraid of falling -transferred off tele-->ordered a low boy with mats on the floor as this may help her fears. -tolerating PO -otherwise asymptomatic and doing well -HR is more stable on current BB and CCB combo so will push back to the floor off tele Objective Last 8 Hrs Date Time Temp Pulse Resp B/P Pulse Ox O2 Delivery O2 Flow Rate FiO2 11/01/16 12:10 36.6 75 16 146/84 92 Room Air 11/01/16 08:00 Room Air 11/01/16 07:57 36.9 104 18 148/85 95 Room Air Physical Exam: GEN: Obese, in no acute distress, alert and appropriate HEENT: NC/AT, normal sclerae CARDIO: reg rate, S1/2 heard without m/g/r LUNGS: CTA bilaterally, no crackles, rales or wheezes, good diaphragmatic excursion ABD: soft, non-tender, non-distended, no rebound or guarding,+BS EXTREMITY: LLE NVI, incision site with karin is c/d/i-open to air, no erythema. RLE amputated below the knee with dressing on stump that is c/d/i. PICC line in place on RUE that does not appear red or infected. NEURO: no gross focal deficits SKIN: warm and dry, Stage II wounds on buttock either side approx 4x2cm. Optifoam in place and is on EHOB mattress Laboratory Results: 11/01/16 05:54 11/01/16 05:54 Test 10/19/16 22:40 10/20/16 05:45 10/20/16 08:25 10/20/16 16:23 Hepatitis C Antibody Screen NEG (NEG) Erythrocyte Sedimentation Rate 20 mm/hr (0-21) Estimated Average Glucose 174 mg/dl Hemoglobin A1c 7.7 % (4.5-5.6) C-Reactive Protein 41.00 mg/dl (0-0.29) Thyroid Stimulating Hormone (TSH) 0.610 uIu/ml (0.300-4.500) Body Fluid Source KNEE LEFT Body Fluid Color REDISH Body Fluid Appearance CLOUDY Body Fluid WBC 216833 /uL Body Fluid RBC 021585 /uL Body Fluid Polynuclear WBCs 65.1 % Body Fluid Polynuclear WBCs (%) 65.1 % Body Fluid Mononuclear WBCs (%) 34.9 % Body Fluid Mononuclear Cells 34.9 % Absolute Reticulocyte Count 0.04 10^6/uL (0.02-0.10) Percent Reticulocyte Count 1.6 % (0.5-2.0) Iron Level 14 mcg/dl (35-150) Total Iron Binding Capacity 83 mcg/dl (250-450) Transferrin 66 mg/dl (200-360) Transferrin % Saturation 15 % (15-50) Ferritin 664.3 ng/ml (8.0-388.0) Lactate Dehydrogenase 172 U/L (84-246) Test 10/20/16 17:22 10/21/16 00:25 10/21/16 06:35 10/21/16 20:14 Haptoglobin 665 MG/DL (43-212) Procalcitonin 11.77 ng/mL (0-0.5) Random Cortisol 44.05 mcg/dl Dohle Bodies 1+ Lactic Acid Level 0.9 mmol/L (0.4-2.0) Phosphorus Level 1.6 mg/dl (2.5-4.9) Prothrombin Time 12.1 SECONDS (9.0-12.0) Prothromb Time International Ratio 1.1 (0.9-1.1) Test 10/23/16 06:01 10/24/16 08:30 10/27/16 05:20 10/28/16 05:34 Neutrophils % (Manual) 81.9 % Lymphocytes % (Manual) 6.0 % Monocytes % (Manual) 4.3 % Eosinophils % (Manual) 4.3 % Metamyelocytes % 2.6 % Myelocytes % 0.9 % Neutrophils # (Manual) 10.88 K/uL (1.4-6.5) Total Absolute Neutrophils 10.88 K/uL (1.4-6.5) Lymphocytes # (Manual) 0.80 K/uL (1.2-3.4) Total Absolute Lymphocytes 0.80 K/uL (1.2-3.4) Monocytes # (Manual) 0.57 K/uL (0.11-0.59) Eosinophils # (Manual) 0.57 K/uL (0-0.5) Metamyelocytes # 0.35 K/uL (0-0) Myelocytes # 0.12 K/uL (0-0) Large Platelets 1+ Anisocytosis PRESENT Total Bilirubin 0.3 mg/dl (0.2-1) Aspartate Amino Transf (AST/SGOT) 15 U/L (15-37) Alanine Aminotransferase (ALT/SGPT) 12 U/L (12-78) Alkaline Phosphatase 94 U/L (45-117) Total Protein 5.4 gm/dl (6.4-8.2) Albumin 1.1 gm/dl (3.4-5.0) Globulin 4.3 gm/dl (2.5-4.0) Albumin/Globulin Ratio 0.3 (0.9-2) Bedside Hemoglobin 9.2 g/dl (12.0-16.0) Bedside Hematocrit 27 % (37-47) Bedside Sodium 134 mEq/L (135-144) Bedside Potassium 4.3 mEq/L (3.3-5.0) Bedside Chloride 97 mEq/L (101-112) Bedside Total CO2 25 mEq/l (24-31) Bedside Blood Urea Nitrogen 9 mg/dl (7-18) Bedside Creatinine 0.5 mg/dl (0.6-1.3) Bedside Glucose (other) 151 mg/dl (70-99) Bedside Ionized Calcium (Ricci) 1.00 mmol/l (1.12-1.32) Toxic Granulation 1+ Total Creatine Kinase 93 U/L (26-192) Immature Granulocyte % (Auto) 4.6 % White Blood Count 17.59 K/uL (4.8-10.8) Red Blood Count 2.80 M/uL (4.2-5.4) Hemoglobin 8.4 g/dL (12.0-16.0) Hematocrit 24.9 % (37-47) Mean Corpuscular Volume 88.9 fL (80-100) Mean Corpuscular Hemoglobin 30.0 pg (25-34) Mean Corpuscular Hemoglobin Concent 33.7 g/dl (32-36) Platelet Count 906 K/uL (130-400) Mean Platelet Volume 9.0 fL (7.4-10.4) Neutrophils (%) (Auto) 77.4 % Lymphocytes (%) (Auto) 8.4 % Monocytes (%) (Auto) 6.0 % Eosinophils (%) (Auto) 3.3 % Basophils (%) (Auto) 0.3 % Neutrophils # (Auto) 13.62 K/uL (1.4-6.5) Lymphocytes # (Auto) 1.47 K/uL (1.2-3.4) Monocytes # (Auto) 1.05 K/uL (0.11-0.59) Eosinophils # (Auto) 0.58 K/uL (0-0.5) Basophils # (Auto) 0.06 K/uL (0-0.2) Immature Granulocyte # (Auto) 0.81 K/uL (0.00-0.02) Red Blood Cell Morphology Unremarkable Test 10/28/16 14:01 10/29/16 06:21 10/30/16 00:00 10/30/16 20:00 Activated Partial Thromboplast Time 49.3 SECONDS (21.0-31.0) Partial Thromboplastin Ratio 1.9 Nucleated RBC Absolute Count (auto) 0.39 K/uL (0-0) Nucleated Red Blood Cells % 2.4 % Toxic Vacuolation 1+ Polychromasia 1+ Magnesium Level 2.0 mg/dl (1.8-2.4) Stool Occult Blood NEGATIVE (NEGATIVE) Test 11/01/16 05:54 11/01/16 11:23 Red Blood Count 3.04 M/uL (4.2-5.4) Mean Corpuscular Volume 89.5 fL (80-100) Mean Corpuscular Hemoglobin 28.9 pg (25-34) Mean Corpuscular Hemoglobin Concent 32.4 g/dl (32-36) RDW Standard Deviation 49.6 fL (36.4-46.3) RDW Coefficient of Variation 15.2 % (11.5-14.5) Mean Platelet Volume 8.5 fL (7.4-10.4) Anion Gap 7.0 mmol/L (3-11) Est Creatinine Clear Calc Drug Dose 118.8 ml/min Estimated GFR () 117.6 Estimated GFR (Non- 101.5 BUN/Creatinine Ratio 19.7 (10-20) Calcium Level 8.2 mg/dl (8.5-10.1) Bedside Glucose 157 mg/dl (70-90) Date/Time Source Procedure Growth Status 10/26/16 08:30 Blood Blood Culture - Final NO GROWTH Complete 10/21/16 12:30 Joint Fluid/Space (Synovial) Knee Left Gram Stain - Final Complete 10/21/16 12:30 Bacterial Culture - Final Staphylococcus Aureus Complete 10/20/16 00:00 Nasal MRSA DNA Surveillance Screen - Final Specimen Positive for MRSA by DNA Probe Complete 10/20/16 00:00 Ulcer Foot Right Gram Stain - Final Complete 10/20/16 00:00 Wound Culture - Final Staphylococcus Aureus Complete Last 24 Hours Test 10/31/16 16:09 10/31/16 20:17 11/01/16 05:54 11/01/16 06:25 Bedside Glucose 212 mg/dl 190 mg/dl 156 mg/dl White Blood Count 13.21 K/uL Red Blood Count 3.04 M/uL Hemoglobin 8.8 g/dL Hematocrit 27.2 % Mean Corpuscular Volume 89.5 fL Mean Corpuscular Hemoglobin 28.9 pg Mean Corpuscular Hemoglobin Concent 32.4 g/dl RDW Standard Deviation 49.6 fL RDW Coefficient of Variation 15.2 % Platelet Count 854 K/uL Mean Platelet Volume 8.5 fL Sodium Level 133 mmol/L Potassium Level 4.0 mmol/L Chloride Level 94 mmol/L Carbon Dioxide Level 32 mmol/L Anion Gap 7.0 mmol/L Blood Urea Nitrogen 9 mg/dl Creatinine 0.48 mg/dl Est Creatinine Clear Calc Drug Dose 118.8 ml/min Estimated GFR () 117.6 Estimated GFR (Non- 101.5 BUN/Creatinine Ratio 19.7 Random Glucose 151 mg/dl Calcium Level 8.2 mg/dl Test 11/01/16 11:23 Bedside Glucose 157 mg/dl Assessment & Plan 66 yoF admitted for sepsis 2/2 infected L knee s/p recent arthoplasty and known recent amputations of R toes with bone exposure. She is s/p R BKA and has MRSA + bacteremia on Dapto 1. MRSA Bacteremia 2/2 L knee infection s/p washout. Post-op pain appears controlled. Pt had left total knee replacement many years ago that became infected and she is s/p I and D of left TKA this admission; MRSA in blood and knee washout. On Dapto 2/2 allergy to Vanc, Blood cultures are negative from . s/p RUBI with no vegetation seen. PICC line was placed in preparation for long-term IV abx. 2. PVD with subsequent R BKA on 10/22/16 for infection of right foot with osteomyelitis. Wound care per Ortho. 3. DVT- bilateral lower extremity, s/p IVC filter by vascular surgery, heparin stopped 2/2 symptomatic anemia on 10/29. Hematology following 4. Atrial tachycardia- RVR on initial presentation with sepsis--controlled with IV Cardizem. Pt had episodes of tachycardia on the floor and was placed back on telemetry for closer watch on her rhythm. No atrial fibrillation present at this time. Tachycardia has improved on the Metoprolol/Dilt combo per Cards. Transferred off tele as HR has been <100 on average. 5. Anemia- multifactorial 2/2 acute blood loss anemia (wound vac in place), daily phlebotomy and chronic disease. She has required 6 units blood this admission with stable H/H since last transfusion 6. Lightheadedness-not much better after transfused two units, may need to give one more unit. Will wait another day and see how she feels. H/H is currently 8.8/ and stable from yesterday. Also of note, patient continues to lay in bed and refuses to sit up on the edge of the bed--this may be related. 7. DMII-glucose still uncontrolled but closer to goal, holding oral meds, cont Lantus and ISS; appreciate glycemic pharmacist recs. 7 Thrombocytosis->800K, likely reactive in setting of recent surgery and active infection 8. Leukocytosis-see #7-improved to 13K 9. Stage II buttock wounds-Optifoam in place, daily nursing assessment for wound care, EHOB mattress in place. FULL CODE DVT PROPHYLAXIS: Lovenox Dispo to rehab with IV abx for next 4-6 weeks when bed available. Transfer to floor now as HR is more stable on current regimen. Low boy ordered with mats on side of bed to prompt more participation in PT. Cheng discontinued, which will help to get moving hopefully. [facility] Contin[facility] stay due to: multiple IV medications needed Discharge planning: uncertain Current Inpatient Medications: Current Inpatient Medications Medications (Trade) Dose Ordered Sig/Denisse Route Start Time Stop Time Status Last Admin Dose Admin Acetaminophen (Tylenol Tab) 650 mg Q4H PRN PO 10/19/16 22:00 11/18/16 21:59 Glucose (Glucose 40% Gel) 15-30 GRAMS 15 GRAMS... UD PRN PO 10/19/16 22:15 11/18/16 22:14 Glucose (Glucose Chew Tab) 4-8 Tablets 4 Tabl... UD PRN PO 10/19/16 22:15 11/18/16 22:14 Dextrose (Dextrose 50% 50ML Syringe) 25-50ML OF 50% DW IV FOR... UD PRN IV 10/19/16 22:15 11/18/16 22:14 Glucagon (Glucagon Inj) 1 mg UD PRN SQ 10/19/16 22:15 11/18/16 22:14 Ondansetron HCl (Zofran Inj) 4 mg Q4H PRN IV 10/19/16 22:45 11/18/16 22:44 Hydromorphone HCl (Dilaudid Inj) 0.2 mg Q4H PRN IV 10/19/16 22:45 11/02/16 22:44 10/24/16 18:14 0.2 MG Diltiazem HCl (Cardizem Cd Cap) 240 mg DAILY PO 10/20/16 09:00 11/19/16 08:59 Future hold 11/01/16 08:39 240 MG Acetaminophen/ Hydrocodone Bitart ([place] 5/325 Tab) 1 tab Q4H PRN PO 10/19/16 23:00 11/02/16 22:59 11/01/16 09:51 1 TAB Nystatin 1 appln BID EXT 10/21/16 21:00 11/20/16 20:59 11/01/16 08:38 1 APPLN Dexamethasone 3.75 mg/Nystatin 30 ml/ Diphenhydramine HCl 300 mg/ Sucrose 45 ml/ Microcrystalline Cellulose 45 ml/ Barcode 1 ea swish in mouth and spit ... BID PRN PO 10/21/16 11:15 11/20/16 11:14 10/22/16 11:13 5 ML Daptomycin/Sodium Chloride (Cubicin IV/Nss 50ml) 62 ml @ 100 mls/hr DAILY@1200 IV 10/22/16 12:00 11/09/16 23:59 11/01/16 12:18 100 MLS/HR Insulin Glargine (Lantus Solostar Pen) 18 unit BID SC 10/22/16 21:00 11/21/16 20:59 11/01/16 08:37 18 UNIT Pantoprazole Sodium (Protonix Tab) 40 mg QAM PO 10/25/16 09:00 11/24/16 08:59 11/01/16 08:39 40 MG Insulin Aspart (novoLOG ASPART) SLIDING SCALE G... ACHS SC 10/27/16 12:00 11/26/16 11:59 11/01/16 12:16 12 UNITS Metoprolol Tartrate (Lopressor Tab) 25 mg BID PO 10/29/16 21:00 11/28/16 20:59 11/01/16 08:39 25 MG Enoxaparin Sodium (Lovenox Inj) 40 mg QAM SQ 10/30/16 09:00 11/29/16 08:59 Future hold 11/01/16 09:51 40 MG Heparin Sodium (Porcine) (Heparin 10 Unit/ ml 5 ml Flush) 5 ml PRN PRN FLUSH 10/29/16 15:30 11/28/16 15:29 10/29/16 18:01 5 ML Polyethylene (Miralax Powder Packet) 17 gm DAILY PO 10/31/16 09:00 11/30/16 08:59 11/01/16 08:37 17 GM
[2016-11-02 07:16] VITALS: BP 165/88; PULSE 87; TEMP 36.6; O2SAT 93
[2016-11-02] MEDS: NYSTATIN POWDER 15GM BTL EXT SCH ×3 (07:43→20:39)
[2016-11-02] MEDS: PANTOprazole SOD 40 MG TAB PO SCH (07:43)
[2016-11-02] MEDS: POLYETHYLENE (MIRALAX) 17 GM PACK PO SCH (07:44)
[2016-11-02] MEDS: METOPROLOL TARTRATE 25 MG TAB PO SCH ×2 (07:44→20:39)
[2016-11-02] MEDS: DILTIAZEM HCL 240 MG CAPCR PO SCH (07:44)
[2016-11-02] MEDS: ENOXAPARIN 40 MG/0.4 ML SYR SQ SCH (07:44)
--- NOTE | 2016-11-02 08:23 | Orthopedic Progress Note ---
Orthopedic Progress Note Date of Service Nov 02, 2016. Subjective Post OP Day: Reports: feeling well, Denies: SOB, calf pain, chest pain, light headedness, nausea / vomiting Objective calves soft nontender, N/V intact, incision C/D/I, A&O x3, toes mobile DARKENED AREA, MID INCISION. SEEMS TO BE HEALING WELL, NO DRAINAGE. ?NECROSIS. WILL NEED CLOSE MONITORING. MILD ERYTHEMA, SWELLING DISTALLY. NO DRAINAGE. STUMP DRESSING CHANGED TODAY. INCISION HEALING WELL. NO DRAINAGE ON DRESSING. 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 POD #9 s/p Left TKA I&D w/ poly exchange and Anbx beads Plan: Pt states that she is choosing to go to [facility] (SNF) Referral made by CM , WAITING ON ACCEPTANCE. STABLE ORTHOPEDICALLY FOR DISCHARGE. Plan to continue daily dressing changes on the Right lower extremity. Left knee wound can be open to the air. Will need to follow the small bruised area noted above Physical therapy can continue for the Left lower extremity. TKA protocol. WBAT. Antibx as per ID Team FOLLOW UP APPTS MADE FOR PATIENT TO SEE ELLEN CARSON AND MARIA ON 11/07/15 FOR WOUND CHECKS AND POSSIBLE SUTURE REMOVAL. 12:50PM FOR DR CARSON; 3:40PM FOR DR SIFUENTES Inhouse Planning Pain Management: [place], Dilaudid, PO Tylenol DVT Prophylaxis: TEDs, SCDs, Heparin Drip Discharge Planning Discharge Planning: care home facility
[2016-11-02] MEDS: INSULIN ASPART 100 UNITS/ML 3 ML PEN SC SCH ×4 (09:33→21:24)
[2016-11-02] MEDS: INSULIN GLARGINE SOLOSTAR 100 UNITS/ML 3 ML PEN SC SCH ×2 (09:34→21:22)
[2016-11-02] MEDS: DAPTOmycin IV 600 MG in SODIUM CHLORIDE 0.9% 50ML 50 ML IV SCH (13:48)
[2016-11-02 14:57] VITALS: BP 142/84; PULSE 78; TEMP 36.8; O2SAT 93
[2016-11-02] MEDS: HYDROCODONE/ACETAMOPHEN 5/325MG TAB PO PRN ×2 (16:02→20:39)
--- NOTE | 2016-11-02 17:49 | Progress Note ---
Medicine Progress Note Date & Time of Visit: Nov 02, 2016 at 17:14. Subjective pain controlled tolerating PO pt transferred up from tele but [place] not implemented as ordered pt afraid of falling out of bed nurse aware and rectifying situation patient with min participation in PT today Objective Last 8 Hrs Date Time Temp Pulse Resp B/P Pulse Ox O2 Delivery O2 Flow Rate FiO2 11/02/16 14:57 36.8 78 16 142/84 93 Room Air Physical Exam: GEN: Obese, in no acute distress, alert and appropriate HEENT: NC/AT, normal sclerae CARDIO: reg rate, S1/2 heard without m/g/r LUNGS: CTA bilaterally, no crackles, rales or wheezes, good diaphragmatic excursion ABD: soft, non-tender, non-distended, no rebound or guarding,+BS EXTREMITY: LLE NVI, incision site with karin is c/d/i-open to air, no erythema. RLE amputated below the knee with dressing on stump that is c/d/i. PICC line in place on RUE that does not appear red or infected. NEURO: no gross focal deficits SKIN: warm and dry, Stage II wounds on buttock either side approx 4x2cm. Optifoam in place and is on EHOB mattress Laboratory Results: Test 11/02/16 17:13 Bedside Glucose 186 mg/dl (70-90) Last 24 Hours Test 11/01/16 18:23 11/01/16 20:24 11/02/16 07:29 11/02/16 11:10 Bedside Glucose 190 mg/dl 178 mg/dl 111 mg/dl 127 mg/dl Assessment & Plan 66 yoF admitted for sepsis 2/2 infected L knee s/p recent arthoplasty and known recent amputations of R toes with bone exposure. She is s/p R BKA and has MRSA + bacteremia on Dapto 1. MRSA Bacteremia 2/2 L knee infection s/p washout on 10/24. Post-op pain appears controlled. Pt had left total knee replacement many years ago that became infected and she is s/p I and D of left TKA this admission; MRSA in blood and knee washout. On Dapto 2/2 allergy to Vanc, Blood cultures are negative from 10/26. s/p RUBI with no vegetation seen. PICC line was placed in preparation for long-term IV abx. 2. PVD with subsequent R BKA on 10/22/16 for infection of right foot with osteomyelitis. Wound care per Ortho. 3. DVT- bilateral lower extremity, s/p IVC filter by vascular surgery, heparin stopped 2/2 symptomatic anemia on 10/29. Hematology following 4. Atrial tachycardia- RVR on initial presentation with sepsis--controlled with IV Cardizem. Pt had episodes of tachycardia on the floor and was placed back on telemetry for closer watch on her rhythm. No atrial fibrillation present at this time. Tachycardia has improved on the Metoprolol/Dilt combo per Cards. Transferred off tele yesterday as HR has been <100 on average. 5. Anemia- multifactorial 2/2 acute blood loss anemia (wound vac in place), daily phlebotomy and chronic disease. She has required 6 units blood this admission with stable H/H since last transfusion on 10/30 6. Lightheadedness-not reported. 7. DMII-glucose still uncontrolled but closer to goal, holding oral meds, cont Lantus and ISS; appreciate glycemic pharmacist recs. 8 Thrombocytosis->800K, likely reactive in setting of recent surgery and active infection 9. Leukocytosis-see #7-improved to 13K 10. Stage II buttock wounds-Optifoam in place, daily nursing assessment for wound care, EHOB mattress in place. FULL CODE DVT PROPHYLAXIS: Lovenox Dispo to rehab with IV abx for next 4-6 weeks when bed available. Transfer to floor now as HR is more stable on current regimen. Low boy ordered with mats on side of bed to prompt more participation in PT. Plan for rehab, placement within 1-2 days pending bed availability DO Jazz Mckeon Hospitalist Continued [facility] stay due to: multiple IV medications needed Discharge planning: [facility] facility Current Inpatient Medications: Current Inpatient Medications Medications (Trade) Dose Ordered Sig/Denisse Route Start Time Stop Time Status Last Admin Dose Admin Acetaminophen (Tylenol Tab) 650 mg Q4H PRN PO 10/19/16 22:00 11/18/16 21:59 Glucose (Glucose 40% Gel) 15-30 GRAMS 15 GRAMS... UD PRN PO 10/19/16 22:15 11/18/16 22:14 Glucose (Glucose Chew Tab) 4-8 Tablets 4 Tabl... UD PRN PO 10/19/16 22:15 11/18/16 22:14 Dextrose (Dextrose 50% 50ML Syringe) 25-50ML OF 50% DW IV FOR... UD PRN IV 10/19/16 22:15 11/18/16 22:14 Glucagon (Glucagon Inj) 1 mg UD PRN SQ 10/19/16 22:15 11/18/16 22:14 Ondansetron HCl (Zofran Inj) 4 mg Q4H PRN IV 10/19/16 22:45 11/18/16 22:44 Hydromorphone HCl (Dilaudid Inj) 0.2 mg Q4H PRN IV 10/19/16 22:45 11/02/16 22:44 10/24/16 18:14 0.2 MG Diltiazem HCl (Cardizem Cd Cap) 240 mg DAILY PO 10/20/16 09:00 11/19/16 08:59 Future hold 11/02/16 07:44 240 MG Acetaminophen/ Hydrocodone Bitart ([place] 5/325 Tab) 1 tab Q4H PRN PO 10/19/16 23:00 11/02/16 22:59 11/02/16 16:02 1 TAB Nystatin 1 appln BID EXT 10/21/16 21:00 11/20/16 20:59 11/01/16 20:54 1 APPLN Dexamethasone 3.75 mg/Nystatin 30 ml/ Diphenhydramine HCl 300 mg/ Sucrose 45 ml/ Microcrystalline Cellulose 45 ml/ Barcode 1 ea swish in mouth and spit ... BID PRN PO 10/21/16 11:15 11/20/16 11:14 10/22/16 11:13 5 ML Daptomycin/Sodium Chloride (Cubicin IV/Nss 50ml) 62 ml @ 100 mls/hr DAILY@1200 IV 10/22/16 12:00 11/09/16 23:59 11/02/16 13:48 100 MLS/HR Insulin Glargine (Lantus Solostar Pen) 18 unit BID SC 10/22/16 21:00 11/21/16 20:59 11/02/16 09:34 18 UNIT Pantoprazole Sodium (Protonix Tab) 40 mg QAM PO 10/25/16 09:00 11/24/16 08:59 3/26/17 07:43 40 MG Insulin Aspart (novoLOG ASPART) SLIDING SCALE G... ACHS SC 10/27/16 12:00 11/26/16 11:59 11/02/16 13:56 8 UNITS Metoprolol Tartrate (Lopressor Tab) 25 mg BID PO 10/29/16 21:00 11/28/16 20:59 11/02/16 07:44 25 MG Enoxaparin Sodium (Lovenox Inj) 40 mg QAM SQ 10/30/16 09:00 11/29/16 08:59 Future hold 11/02/16 07:44 40 MG Heparin Sodium (Porcine) (Heparin 10 Unit/ ml 5 ml Flush) 5 ml PRN PRN FLUSH 10/29/16 15:30 11/28/16 15:29 10/29/16 18:01 5 ML Polyethylene (Miralax Powder Packet) 17 gm DAILY PO 10/31/16 09:00 11/30/16 08:59 11/02/16 07:44 17 GM
[2016-11-02 20:37] VITALS: BP 149/76; PULSE 78
[2016-11-02 23:11] VITALS: BP 133/84; PULSE 77; TEMP 36.7; O2SAT 96
[2016-11-03 06:04] LABS: HEMATOCRIT 26.7 % (37-47); MEAN CORPUSCULAR HEMOGLOBIN 29.7 pg (25-34); MEAN CORPUSCULAR HGB CONC 33.3 g/dl (32-36); MEAN PLATELET VOLUME 8.4 fL (7.4-10.4); PLATELET COUNT 832 K/uL (130-400); WHITE BLOOD COUNT 12.41 K/uL (4.8-10.8)
[2016-11-03 06:45] LABS: BUN/CREATININE RATIO 22.1 (10-20); CALCIUM 8.3 mg/dl (8.5-10.1); CREATININE 0.51 mg/dl (0.60-1.20); MAGNESIUM 1.8 mg/dl (1.8-2.4)
[2016-11-03 07:41] VITALS: BP 164/71; PULSE 94; TEMP 36.9; O2SAT 94
[2016-11-03] MEDS: NYSTATIN POWDER 15GM BTL EXT SCH ×2 (09:44→21:05)
[2016-11-03] MEDS: PANTOprazole SOD 40 MG TAB PO SCH (09:45)
[2016-11-03] MEDS: METOPROLOL TARTRATE 25 MG TAB PO SCH ×2 (09:45→21:33)
[2016-11-03] MEDS: DILTIAZEM HCL 240 MG CAPCR PO SCH (09:46)
[2016-11-03] MEDS: ENOXAPARIN 40 MG/0.4 ML SYR SQ SCH (09:47)
[2016-11-03] MEDS: POLYETHYLENE (MIRALAX) 17 GM PACK PO SCH (09:47)
[2016-11-03 10:00] VITALS: BP 135/83; PULSE 94
[2016-11-03] MEDS: INSULIN ASPART 100 UNITS/ML 3 ML PEN SC SCH ×4 (10:10→21:08)
[2016-11-03] MEDS: INSULIN GLARGINE SOLOSTAR 100 UNITS/ML 3 ML PEN SC SCH ×2 (10:11→21:08)
[2016-11-03] MEDS: DAPTOmycin IV 600 MG in SODIUM CHLORIDE 0.9% 50ML 50 ML IV SCH (12:49)
--- NOTE | 2016-11-03 12:53 | Hematology/Oncology Prog Note ---
Hematology/Onc Progress Note Date of Service Nov 03, 2016. Diagnoses 1. Bilateral lower extremity DVT-see A/P 2. Anemia of multiple mechanisms- see A/P 3. S/p right BKA 4. S/p left TKA for septic arthritis Medications Medications Administered Medications (Trade) Dose Ordered Sig/Denisse Route Start Time Stop Time Status Last Admin Dose Admin Insulin Aspart SLIDING SCALE G... ACHS SC 10/20/16 07:00 10/20/16 21:36 DC 10/20/16 20:55 4 UNITS Sodium Chloride (Nss 1000ml) 1,000 ml @ 100 mls/hr Q10H IV 10/19/16 22:45 10/20/16 00:14 DC 10/19/16 23:32 100 MLS/HR Hydromorphone HCl (Dilaudid Inj) 0.2 mg Q4H PRN IV 10/19/16 22:45 11/02/16 22:44 DC 10/24/16 18:14 0.2 MG Diltiazem HCl (Cardizem Cd Cap) 240 mg DAILY PO 10/20/16 09:00 11/19/16 08:59 Future hold 11/03/16 09:46 240 MG Glipizide (GlipiZIDE EXTENDED REL TAB) 10 mg DAILY PO 10/20/16 09:00 10/20/16 15:52 DC 10/20/16 10:12 10 MG Famotidine (Pepcid Tab) 20 mg DAILY PO 10/20/16 09:00 10/20/16 15:52 DC 10/20/16 10:12 20 MG Acetaminophen/ Hydrocodone Bitart ([place] 5/325 Tab) 1 tab Q4H PRN PO 10/19/16 23:00 11/02/16 22:59 DC 11/02/16 20:39 1 TAB Folic Acid (Folvite Tab) 1 mg DAILY PO 10/20/16 09:00 10/20/16 15:52 DC 10/20/16 10:13 1 MG Insulin Aspart SLIDING SCALE G... ONE ONCE SC 10/19/16 23:00 10/19/16 23:05 DC 10/19/16 23:26 8 UNITS Magnesium Sulfate 1 gm/Prmx 100 ml @ 100 mls/hr NOW STAT IV 10/19/16 23:41 10/20/16 00:40 DC 10/19/16 23:52 100 MLS/HR Potassium Chloride/Sodium Chloride 1,000 ml @ 100 mls/hr Q10H IV 10/19/16 23:45 10/24/16 10:34 DC 10/24/16 00:05 100 MLS/HR Metronidazole 500 mg/Prmx 100 ml @ 100 mls/hr Q8H IV 10/20/16 11:00 10/22/16 11:01 DC 10/22/16 03:01 100 MLS/HR Cefepime HCl 2000 mg/Dextrose 112.5 ml @ 200 mls/hr Q12H IV 10/20/16 11:00 10/22/16 11:01 DC 10/21/16 22:46 200 MLS/HR Daptomycin 375 mg/ Sodium Chloride 57.5 ml @ 100 mls/hr DAILY@1200 IV 10/20/16 12:00 10/22/16 07:33 DC 10/20/16 12:20 100 MLS/HR Sodium Chloride (Nss 1000ml) 1,000 ml @ 1,000 mls/hr Q1H IV 10/20/16 16:00 10/20/16 16:29 DC 10/20/16 16:02 1,000 MLS/HR Diltiazem HCl (Cardizem Inj) 10 mg TODAY@1600 IV 10/20/16 16:00 10/20/16 16:01 DC 10/20/16 16:01 10 MG Diltiazem HCl (Cardizem Inj) 25 mg STK-MED ONCE .ROUTE 10/20/16 15:54 10/20/16 15:57 DC 10/20/16 15:54 10 MG Insulin Glargine (Lantus Solostar Pen) 18 unit BID SC 10/20/16 21:00 10/20/16 21:01 DC 10/20/16 20:58 18 UNIT Metoprolol Tartrate 5 mg 5 mg STK-MED ONCE .ROUTE 10/20/16 16:21 10/20/16 16:24 DC 10/20/16 16:21 2.5 MG Lactated Ringer's 1,000 ml @ 999 mls/hr Q1H1M ONCE IV 10/20/16 17:15 10/20/16 18:15 DC 10/20/16 17:34 999 MLS/HR Magnesium Sulfate 1 gm/Prmx 100 ml @ 100 mls/hr 1800 ONCE IV 10/20/16 18:00 10/20/16 18:59 DC 10/20/16 18:08 100 MLS/HR Potassium Chloride/Prmx (Kcl 10 Meq / Wtr/Premixed Water) 100 ml @ 100 mls/hr 1800,1900,2000,2100 IV 10/20/16 18:00 10/20/16 21:59 DC 10/20/16 21:57 100 MLS/HR Insulin Glargine (Lantus Solostar Pen) 9 unit QAM SC 10/21/16 09:00 10/21/16 09:01 DC 10/21/16 08:25 9 UNIT Insulin Aspart SLIDING SCALE G... Q4 SC 10/21/16 00:00 10/23/16 14:00 DC 10/23/16 13:16 3 UNITS Heparin Sodium/ Dextrose 500 ml @ 18 mls/hr Q24H PRN IV 10/21/16 00:15 10/24/16 12:39 DC 10/23/16 18:08 18 MLS/HR Potassium Phosphate/Sodium Chloride (Potassium Phosphate Inj/Nss 500ml) 507 ml @ 144.857 mls/hr TODAY@0810 ONCE IV 10/21/16 08:10 10/21/16 11:39 DC 10/21/16 08:22 144.857 MLS/HR Insulin Glargine (Lantus Solostar Pen) Per Scale BID SC 10/21/16 21:00 10/22/16 09:49 DC 10/21/16 20:25 18 UNIT Nystatin 1 appln BID EXT 10/21/16 21:00 11/20/16 20:59 11/03/16 09:44 1 APPLN Dexamethasone/ Nystatin/ Diphenhydramine HCl/Sucrose/ Microcrystalline Cellulose/Barcode (Decadron Conc Soln/Mycostatin Susp/Benadryl Syrup/Ora-Sweet Syrup/Ora-Plus Susp. Vehicle) swish in mouth and spit ... BID PRN PO 10/21/16 11:15 11/20/16 11:14 10/22/16 11:13 5 ML Bacitracin (Bacitracin Inj) 150,000 units STK-MED ONCE .ROUTE 10/21/16 11:14 10/21/16 11:17 DC 10/21/16 11:14 150,000 UNITS Lidocaine HCl (Xylocaine 1% Inj (Local)) 10 ml ONE ONCE INJ 10/21/16 11:47 10/21/16 11:51 DC 10/21/16 11:47 10 ML Iodixanol (Visipaque 50ml) 2,700 mg ONE ONCE XX 10/21/16 11:55 10/21/16 11:57 DC 10/21/16 11:55 2,700 MG Insulin Human Regular 10 units 10 units STK-MED ONCE .ROUTE 10/21/16 13:34 10/21/16 13:37 DC 10/21/16 13:49 10 UNITS Daptomycin 600 mg/ Sodium Chloride 62 ml @ 100 mls/hr DAILY@1200 IV 10/22/16 12:00 11/09/16 23:59 11/02/16 13:48 100 MLS/HR Pantoprazole Sodium/Syringe (Protonix Inj/ Syringe) 10 ml @ 5 mls/min DAILY@11 IV 10/22/16 11:00 10/24/16 09:50 DC 10/23/16 11:49 5 MLS/MIN Insulin Glargine (Lantus Solostar Pen) 15 unit ONE ONCE SC 10/22/16 10:00 10/22/16 10:01 DC 10/22/16 11:11 15 UNIT Insulin Glargine (Lantus Solostar Pen) 18 unit BID SC 10/22/16 21:00 11/21/16 20:59 11/03/16 10:11 18 UNIT Bacitracin 61108 units 50,000 units ONE ONCE IR 10/22/16 15:20 10/22/16 15:21 DC 10/22/16 15:20 50,000 UNITS Heparin Sodium (Porcine) 3000 unit/Syringe 3 ml @ 10 mls/min NOW ONCE IV 10/23/16 07:45 10/23/16 07:46 DC 10/23/16 08:23 10 MLS/MIN Furosemide/Syringe (Lasix Inj/ Syringe) 4 ml @ 4 mls/min NOW ONCE IV 10/23/16 09:30 10/23/16 09:31 DC 10/23/16 09:41 4 MLS/MIN Miscellaneous (Stop Order) 1 ea TODAY@0000 ONCE N/A 10/24/16 00:00 10/24/16 00:01 DC 10/24/16 00:04 1 EA Insulin Aspart (novoLOG ASPART) SLIDING SCALE G... ACHS SC 10/23/16 16:00 10/27/16 06:55 DC 10/26/16 18:42 6 UNITS Povidone Iodine (Betadine Ophthalmic Prep Solution) 30 ml STK-MED ONCE .ROUTE 10/24/16 07:02 10/24/16 07:05 DC 10/24/16 09:24 30 ML Bacitracin (Bacitracin Inj) 100,000 units STK-MED ONCE .ROUTE 10/24/16 07:02 10/24/16 07:06 DC 10/24/16 09:21 100,000 UNITS Bacitracin 47230 units 50,000 units STK-MED ONCE .ROUTE 10/24/16 07:32 10/24/16 07:35 DC 10/24/16 09:22 50,000 UNITS Daptomycin (Cubicin IV) 0 ml @ 0 mls/hr ONE ONCE IV 10/24/16 09:25 10/24/16 09:28 DC 10/24/16 09:25 1,000 MLS/HR Pantoprazole Sodium 40 mg 40 mg QAM PO 10/25/16 09:00 11/24/16 08:59 11/03/16 09:45 40 MG Heparin Sodium/ Dextrose 500 ml @ 23 mls/hr [id number] PRN IV 10/24/16 16:00 10/29/16 13:10 DC 10/28/16 08:20 23 MLS/HR Sodium Chloride 1,000 ml @ 75 mls/hr [id number] ONCE IV 10/24/16 23:45 10/25/16 13:04 DC 10/25/16 00:08 75 MLS/HR Furosemide 20 mg/ Syringe 2 ml @ 4 mls/min BETWEENUNITS@1400 IV 10/25/16 14:00 10/25/16 23:59 DC 10/25/16 18:05 4 MLS/MIN Heparin Sodium (Porcine) 3000 unit/Syringe 3 ml @ 10 mls/min 0915 ONCE IV 10/26/16 09:15 10/26/16 09:16 DC 10/26/16 09:25 10 MLS/MIN Heparin Sodium (Porcine)/Syringe (Heparin Iv Bolus/Syringe) 3 ml @ 10 mls/min 0715 ONCE IV 10/27/16 07:15 10/27/16 07:16 DC 10/27/16 08:23 10 MLS/MIN Insulin Aspart SLIDING SCALE G... ACHS SC 10/27/16 12:00 11/26/16 11:59 11/03/16 10:10 3 UNITS Heparin Sodium (Porcine) 3000 unit/Syringe 3 ml @ 10 mls/min TODAY@1600 ONCE IV 10/27/16 16:00 10/27/16 16:01 DC 10/27/16 15:55 10 MLS/MIN Heparin Sodium (Porcine) 3000 unit/Syringe 3 ml @ 10 mls/min NOW STAT IV 10/27/16 22:33 10/27/16 22:34 DC 10/27/16 22:56 10 MLS/MIN Heparin Sodium (Porcine) 3000 unit/Syringe 3 ml @ 10 mls/min TODAY@0745 ONCE IV 10/28/16 07:45 10/28/16 07:46 DC 10/28/16 08:19 10 MLS/MIN Magnesium Sulfate/ Prmx (Magnesium Sulfate/Premixed D5W) 100 ml @ 100 mls/hr Q1H IV 10/28/16 10:30 10/28/16 14:29 DC 10/28/16 14:37 100 MLS/HR Metoprolol Tartrate (Lopressor Tab) 12.5 mg BID PO 10/28/16 21:00 10/29/16 10:07 DC 10/29/16 08:44 12.5 MG Metoprolol Tartrate (Lopressor Tab) 25 mg BID PO 10/29/16 21:00 11/28/16 20:59 11/03/16 09:45 25 MG Enoxaparin Sodium (Lovenox Inj) 40 mg QAM SQ 10/30/16 09:00 11/29/16 08:59 Future hold 11/03/16 09:47 40 MG Heparin Sodium (Porcine) (Heparin 10 Unit/ ml 5 ml Flush) 5 ml PRN PRN FLUSH 10/29/16 15:30 11/28/16 15:29 11/03/16 05:43 5 ML Acetaminophen (Tylenol Tab) 650 mg ONE ONCE PO 10/30/16 08:00 10/30/16 08:01 DC 10/30/16 10:09 650 MG Diphenhydramine HCl 25 mg 25 mg ONE ONCE PO 10/30/16 08:00 10/30/16 08:01 DC 10/30/16 10:10 25 MG Furosemide/Syringe (Lasix Inj/ Syringe) 2 ml @ 4 mls/min BETWEENUNITS IV 10/30/16 09:00 10/30/16 12:01 DC 10/30/16 13:30 4 MLS/MIN Polyethylene (Miralax Powder Packet) 17 gm DAILY PO 10/31/16 09:00 11/30/16 08:59 11/03/16 09:47 17 GM Subjective Patient reports feeling overall fair. She has been placed in the low lying bed with pad on either side in case she should fall. She states that it is very uncomfortable. She is hoping to be placed to rehabilitation today. She states her appetite has been fair since her admission. She is eating small amounts of breakfast and lunch. She denies nausea or vomiting; bowels require MiraLax for movement. She is unsure if she has bloody or black stools as she has an adult diaper on. She denies any dysuria. She has not had chest pain, cough or dyspnea. Review of Systems: Constitutional: + weakness, No chills, No fever Respiratory: No cough, No shortness of breath, No sputum Cardiovascular: No chest pain Abdomen: + constipation, No nausea, No pain Musculoskeletal: + see HPI Female : No dysuria, No urinary frequency Vital Signs Vital Signs Past 12 Hours Date Time Temp Pulse Resp B/P Pulse Ox O2 Delivery O2 Flow Rate FiO2 11/03/16 10:00 94 135/83 11/03/16 08:30 Room Air 11/03/16 07:41 36.9 94 18 164/71 94 Room Air 11/03/16 01:15 Room Air Physical Exam Constitutional: General Apperance: obese Level of Distress: mild distress ENMT: hearing grossly normal Lungs: Respiratory Effort: no dyspnea Auscuitation: no wheezing, no rales/crackles Cardiovascular: Heart Auscultation: RRR Abdomen: Inspection & Palpation: soft, non-distended, no tenderness, guarding & rebound Extremities: pertinent finding (Edema of left knee noted with karin keeping midline incision intact; below right knee amputation noted, stump wrapped in dressing) Laboratory 11/01/16 05:54 11/03/16 05:45 11/01/16 05:54 11/03/16 05:45 Test 10/31/16 16:09 10/31/16 20:17 11/01/16 05:54 11/01/16 06:25 Bedside Glucose 212 mg/dl (70-90) 190 mg/dl (70-90) 156 mg/dl (70-90) Red Blood Count 3.04 M/uL (4.2-5.4) Mean Corpuscular Volume 89.5 fL (80-100) Mean Corpuscular Hemoglobin 28.9 pg (25-34) Mean Corpuscular Hemoglobin Concent 32.4 g/dl (32-36) RDW Standard Deviation 49.6 fL (36.4-46.3) RDW Coefficient of Variation 15.2 % (11.5-14.5) Mean Platelet Volume 8.5 fL (7.4-10.4) Anion Gap 7.0 mmol/L (3-11) Est Creatinine Clear Calc Drug Dose 118.8 ml/min Estimated GFR () 117.6 Estimated GFR (Non- 101.5 BUN/Creatinine Ratio 19.7 (10-20) Calcium Level 8.2 mg/dl (8.5-10.1) Test 11/01/16 11:23 11/01/16 18:23 11/01/16 20:24 11/02/16 07:29 Bedside Glucose 157 mg/dl (70-90) 190 mg/dl (70-90) 178 mg/dl (70-90) 111 mg/dl (70-90) Test 11/02/16 11:10 11/02/16 17:13 11/02/16 20:43 11/03/16 05:45 Bedside Glucose 127 mg/dl (70-90) 186 mg/dl (70-90) 185 mg/dl (70-90) Red Blood Count 3.00 M/uL (4.2-5.4) Mean Corpuscular Volume 89.0 fL (80-100) Mean Corpuscular Hemoglobin 29.7 pg (25-34) Mean Corpuscular Hemoglobin Concent 33.3 g/dl (32-36) RDW Standard Deviation 48.2 fL (36.4-46.3) RDW Coefficient of Variation 14.8 % (11.5-14.5) Mean Platelet Volume 8.4 fL (7.4-10.4) Anion Gap 6.0 mmol/L (3-11) Est Creatinine Clear Calc Drug Dose 111.8 ml/min Estimated GFR () 115.3 Estimated GFR (Non- 99.5 BUN/Creatinine Ratio 22.1 (10-20) Calcium Level 8.3 mg/dl (8.5-10.1) Magnesium Level 1.8 mg/dl (1.8-2.4) Test 11/03/16 07:40 11/03/16 11:23 Bedside Glucose 153 mg/dl (70-90) 163 mg/dl (70-90) Assessment & Plan 1. Bilateral lower extremity DVT-s/p IVC filter placement on 10/21/16; anticoagulation was held due to acute blood loss with right BKA and left knee arthroscopy, able to be restarted 10/30/16 on Lovenox 40 mg SC daily - Factor V Leiden and Prothrombin still pending at this time -Patient will require follow up on discharge from hospital with Dr. Love to discuss anticoagulation, possible removal IVC 2. Anemia of multiple mechanisms- acute blood loss from orthopedic procedures ( required 6 units PRBC, FOBT negative for GI source), acute illness, chronic disease- stable more recently, check CBC daily 3. Thrombocytopenia- likely reactive from left knee septic arthritis and multiple orthopedic procedures, stable Attending Note Discussed with Shelly Costa PA-C and agree with impression Follow up in the office upon discharge
--- NOTE | 2016-11-03 14:31 | Orthopedic Progress Note ---
Orthopedic Progress Note Date of Service Nov 03, 2016. Objective Date Time Temp Pulse Resp B/P Pulse Ox O2 Delivery O2 Flow Rate FiO2 11/03/16 10:00 94 135/83 11/03/16 08:30 Room Air 11/03/16 07:41 36.9 94 18 164/71 94 Room Air 11/03/16 01:15 Room Air 11/02/16 23:11 36.7 77 16 133/84 96 Room Air 11/02/16 20:37 78 149/76 11/02/16 16:00 Room Air 11/02/16 14:57 36.8 78 16 142/84 93 Room Air Laboratory Results 24 Hours: Test 11/03/16 05:45 Hematocrit 26.7 % Hemoglobin 8.9 g/dL Assessment & Plan Assessment: POD #12 s/p right BKA -currently on dapto due to allergy to vanco, PICC for custodial Abx, likely 6 weeks. POD #10 s/p Left TKA I&D w/ poly exchange and Anbx beads Plan: Pt states that she is choosing to go to [facility] (SNF) Referral made by CM , WAITING ON ACCEPTANCE. STABLE ORTHOPEDICALLY FOR DISCHARGE. Plan to continue daily dressing changes on the Right lower extremity. Left knee wound can be open to the air. Will need to follow the small bruised area noted above Physical therapy can continue for the Left lower extremity. TKA protocol. WBAT. Antibx as per ID Team *FOLLOW UP APPTS MADE FOR PATIENT TO SEE ELLEN CARSON AND MARIA ON 11/07/15 FOR WOUND CHECKS AND POSSIBLE SUTURE REMOVAL. 12:50PM FOR DR CARSON; 3:40PM FOR DR SIFUENTES* Inhouse Planning Pain Management: Ultram, PO Tylenol DVT Prophylaxis: SCDs, Lovenox Discharge Planning Discharge Planning: [facility] facility
[2016-11-03 15:12] VITALS: BP 150/84; PULSE 92; TEMP 37; O2SAT 93
--- NOTE | 2016-11-03 16:28 | Infectious Disease Progress Nt ---
Progress Note Date of Service Nov 03, 2016. Subjective Pt evaluation today including: conversation w/ patient, physical exam, chart review, lab review, review of studies, conversation w/ [facility] consultant (ping Fermin; RACHEAL Daniels), review of inpatient medication list WBC count this morning was 12.41- trending down. Creatinine stable at 0.51. Patient is feeling OK today but is slightly uncomfortable on exam. She seems slightly confused, and asks when she was started on antibiotics. She is anticipating D/C to rehab soon. All Other Systems: Reviewed and Negative Medications Current Inpatient Medications Medications (Trade) Dose Ordered Sig/Denisse Route Start Time Stop Time Status Last Admin Dose Admin Acetaminophen (Tylenol Tab) 650 mg Q4H PRN PO 10/19/16 22:00 11/18/16 21:59 Glucose (Glucose 40% Gel) 15-30 GRAMS 15 GRAMS... UD PRN PO 10/19/16 22:15 11/18/16 22:14 Glucose (Glucose Chew Tab) 4-8 Tablets 4 Tabl... UD PRN PO 10/19/16 22:15 11/18/16 22:14 Dextrose (Dextrose 50% 50ML Syringe) 25-50ML OF 50% DW IV FOR... UD PRN IV 10/19/16 22:15 11/18/16 22:14 Glucagon (Glucagon Inj) 1 mg UD PRN SQ 10/19/16 22:15 11/18/16 22:14 Ondansetron HCl (Zofran Inj) 4 mg Q4H PRN IV 10/19/16 22:45 11/18/16 22:44 Diltiazem HCl (Cardizem Cd Cap) 240 mg DAILY PO 10/20/16 09:00 11/19/16 08:59 Future hold 11/03/16 09:46 240 MG Nystatin 1 appln BID EXT 10/21/16 21:00 11/20/16 20:59 11/03/16 09:44 1 APPLN Dexamethasone 3.75 mg/Nystatin 30 ml/ Diphenhydramine HCl 300 mg/ Sucrose 45 ml/ Microcrystalline Cellulose 45 ml/ Barcode 1 ea swish in mouth and spit ... BID PRN PO 10/21/16 11:15 11/20/16 11:14 10/22/16 11:13 5 ML Daptomycin/Sodium Chloride (Cubicin IV/Nss 50ml) 62 ml @ 100 mls/hr DAILY@1200 IV 10/22/16 12:00 11/09/16 23:59 11/03/16 12:49 100 MLS/HR Insulin Glargine (Lantus Solostar Pen) 18 unit BID SC 10/22/16 21:00 11/21/16 20:59 11/03/16 10:11 18 UNIT Pantoprazole Sodium (Protonix Tab) 40 mg QAM PO 10/25/16 09:00 11/24/16 08:59 11/03/16 09:45 40 MG Insulin Aspart (novoLOG ASPART) SLIDING SCALE G... ACHS SC 10/27/16 12:00 11/26/16 11:59 11/03/16 14:07 6 UNITS Metoprolol Tartrate (Lopressor Tab) 25 mg BID PO 10/29/16 21:00 11/28/16 20:59 11/03/16 09:45 25 MG Enoxaparin Sodium (Lovenox Inj) 40 mg QAM SQ 10/30/16 09:00 11/29/16 08:59 Future hold 11/03/16 09:47 40 MG Heparin Sodium (Porcine) (Heparin 10 Unit/ ml 5 ml Flush) 5 ml PRN PRN FLUSH 10/29/16 15:30 11/28/16 15:29 11/03/16 14:07 5 ML Polyethylene (Miralax Powder Packet) 17 gm DAILY PO 10/31/16 09:00 11/30/16 08:59 11/03/16 09:47 17 GM Tramadol HCl (Ultram Tab) `1-2 tabs for pain 1 tab ... Q4H PRN PO 11/03/16 14:30 12/03/16 14:29 Objective Vital Signs Date Time Temp Pulse Resp B/P Pulse Ox O2 Delivery O2 Flow Rate FiO2 11/03/16 15:12 37.0 92 14 150/84 93 Room Air 11/03/16 10:00 94 135/83 11/03/16 08:30 Room Air 11/03/16 07:41 36.9 94 18 164/71 94 Room Air 11/03/16 01:15 Room Air 11/02/16 23:11 36.7 77 16 133/84 96 Room Air 11/02/16 20:37 78 149/76 Physical Exam General Appearance: no apparent distress, + obese Eyes: normal inspection, sclerae normal ENT: hearing grossly normal Neck: supple, trachea midline Respiratory/Chest: no respiratory distress, no accessory muscle use Extremities: + pertinent finding (right BKA, left knee wound appears to be healing well. Mild edema of left lower extremity) Neurologic/Psychiatric: alert, normal mood/affect Skin: + pertinent finding (No drainage from left knee wound. [place] in place. Mild distal erythema around the wound) Laboratory Results Last 24 Hours Test 11/02/16 17:13 11/02/16 20:43 11/03/16 05:45 11/03/16 07:40 Bedside Glucose 186 mg/dl 185 mg/dl 153 mg/dl White Blood Count 12.41 K/uL Red Blood Count 3.00 M/uL Hemoglobin 8.9 g/dL Hematocrit 26.7 % Mean Corpuscular Volume 89.0 fL Mean Corpuscular Hemoglobin 29.7 pg Mean Corpuscular Hemoglobin Concent 33.3 g/dl RDW Standard Deviation 48.2 fL RDW Coefficient of Variation 14.8 % Platelet Count 832 K/uL Mean Platelet Volume 8.4 fL Sodium Level 133 mmol/L Potassium Level 4.0 mmol/L Chloride Level 96 mmol/L Carbon Dioxide Level 31 mmol/L Anion Gap 6.0 mmol/L Blood Urea Nitrogen 11 mg/dl Creatinine 0.51 mg/dl Est Creatinine Clear Calc Drug Dose 111.8 ml/min Estimated GFR () 115.3 Estimated GFR (Non- 99.5 BUN/Creatinine Ratio 22.1 Random Glucose 134 mg/dl Calcium Level 8.3 mg/dl Magnesium Level 1.8 mg/dl Test 11/03/16 11:23 11/03/16 13:15 11/03/16 16:25 Bedside Glucose 163 mg/dl Lab Scanned Report Blood Transfusion Assessment and Plan Diabetic female with left septic TKA- now s/p I & D x 2, wound infection of the right lower extremity- now s/p right BKA, and MRSA bacteremia. RUBI showed no evidence of vegetation. She continues on Daptomycin. Her most recent blood cultures are showing no growth to date. PICC line in place. She will need 6 weeks of IV abx from this first negative blood cultures- tentative stop date 12/07. Unfortunately, this patient has a Vancomycin allergy. We will need to either continue on IV Daptomycin or IV Ceftaroline. Unsure of which rehab center (if any) will accept this patient on these medications. Discussed this patient with CM- will check options and maybe consider [facility]? Also could consider IV Dalbavancin every week or every other week- not sure how this would work with rehab. We will follow. PROVIDER ADDENDUM: Patient reviewed with Ms. Alberto. Agree with above assessment.
[2016-11-03 16:30] VITALS: O2SAT 93
--- NOTE | 2016-11-03 20:03 | Progress Note ---
Internal Med Progress Note Date of Service: Nov 03, 2016. Provider Documentation: SUBJECTIVE: resting comfortably denies any pain afebrile no sob await placement OBJECTIVE: Vital Signs-as noted below Exam: General-alert and oriented. Not in distress ENT-normal hearing Neck-no neck masses Lungs-cta b/l no wheezing no crackles Heart-s1 and s2 heard, regular rate and rhythm no murmurs Abdomen-soft bowel sounds present non tender no distension Extremities-s/p right bka s/p I and d and abx disc left knee Neuro-alert and awake moves extremities Lab data as noted below. ASSESSMENT & PLAN: 66F presented with severe sepsis secondary to infected LEFT TKA. Also patient had hx of PVD and recent amputations of right toes with bones exposing and vascular surgery recommended right BKA. Patient initially on iv daptomycin/ cefepime and Flagyl. All the cultures growing MRSA.Currently on Iv daptomycin. Patient is s/p Left knee I and D abx disc placement and also Right BKA.Patient developed rapid afib during initially presentation and was on Cardizem drip. Currently stable on po Cardizem and iv heparin. Hx of DVT and because of multiple procedures and been of of iv heparin vascular surgery placed ivc filter. Developed anemia requiring total of 4units prbc transfusion. No obvious source of bleeding, mostly from sepsis and post op. Monitor h and h while on iv heparin. Persistent bacteremia and cardiology did RUBI which is unremarkable. 6 weeks of iv of abx form negative blood cx as per ID. s/p picc line . Plan for rehab SEVERE SEPSIS bacteremia due to infected /septic left knee on empiric abx with Daptomycin /Cefepime /Flagyl ID eval appreciated Orthopedics on board pt had left total knee replacement done in 04/2000 s/p I and D of left TKA cx mrsa from I and D.and blood cx mrsa currently only on daptomycin repeat cx mrsa duration of abx as per ID has central line s/p picc line after blood cx negative RUBI unremarkable plan for 6 weeks of iv abx until 12/07. Choice of abx as per ID Needs placement DVT bilateral lower extremity s/p ivc filter by vascular surgery followup with Hematology for anticoagulation and possible removal of filter AFIB RVR /Atrial tachycardia: appreciate input form Cardiology currently on po Cardizem and metoprolol rates under control iv heparin stopped for anemia ANEMIA : no obvious signs of bleeding received total 6units prbc hb 8.9 today Will monitor HYPOTENSION : due to severe sepsis given IV fluid bolus improved Recent Right foot toe amputations. hx of PVD s/p 2nd , 3rd and 4 th toe amputation with open wound , exposing bone wound care consulted iv abx as above vascular surgery recommends right BKA and s/p BKA on 10/22/16 pt/ot rehab placement TYPE 2 DM : holding oral meds severe sepsis insulin SSI /basal Lantus pharmacy consulted for glycemic control will monitor FULL CODE DVT PROPHYLAXIS scds DISPOSITION Await placement pt/ot social service for d/c planning Vital Signs: Date Time Temp Pulse Resp B/P Pulse Ox O2 Delivery O2 Flow Rate FiO2 11/03/16 15:12 37.0 92 14 150/84 93 Room Air 11/03/16 10:00 94 135/83 11/03/16 08:30 Room Air 11/03/16 07:41 36.9 94 18 164/71 94 Room Air 11/03/16 01:15 Room Air 11/02/16 23:11 36.7 77 16 133/84 96 Room Air 11/02/16 20:37 78 149/76 Lab Results: Results Past 24 Hours Test 11/02/16 20:43 11/03/16 05:45 11/03/16 07:40 11/03/16 11:23 Range/Units Bedside Glucose 185 153 163 70-90 mg/dl White Blood Count 12.41 4.8-10.8 K/uL Red Blood Count 3.00 4.2-5.4 M/uL Hemoglobin 8.9 12.0-16.0 g/dL Hematocrit 26.7 37-47 % Mean Corpuscular Volume 89.0 80-100 fL Mean Corpuscular Hemoglobin 29.7 25-34 pg Mean Corpuscular Hemoglobin Concent 33.3 32-36 g/dl RDW Standard Deviation 48.2 36.4-46.3 fL RDW Coefficient of Variation 14.8 11.5-14.5 % Platelet Count 832 130-400 K/uL Mean Platelet Volume 8.4 7.4-10.4 fL Sodium Level 133 136-145 mmol/L Potassium Level 4.0 3.5-5.1 mmol/L Chloride Level 96 98-107 mmol/L Carbon Dioxide Level 31 21-32 mmol/L Anion Gap 6.0 3-11 mmol/L Blood Urea Nitrogen 11 7-18 mg/dl Creatinine 0.51 0.60-1.20 mg/dl Est Creatinine Clear Calc Drug Dose 111.8 ml/min Estimated GFR () 115.3 Estimated GFR (Non- 99.5 BUN/Creatinine Ratio 22.1 10-20 Random Glucose 134 70-99 mg/dl Calcium Level 8.3 8.5-10.1 mg/dl Magnesium Level 1.8 1.8-2.4 mg/dl Total Creatine Kinase 40 26-192 U/L Test 11/03/16 13:15 11/03/16 16:47 Range/Units Lab Scanned Report Blood Transfusion Tag [id number] Bedside Glucose 148 70-90 mg/dl
[2016-11-03 23:09] VITALS: BP 159/79; PULSE 88; TEMP 37.2; O2SAT 94
[2016-11-04 06:15] LABS: HEMATOCRIT 27.5 % (37-47); MEAN CELL VOLUME 90.8 fL (80-100); MEAN CORPUSCULAR HEMOGLOBIN 29.7 pg (25-34); MEAN CORPUSCULAR HGB CONC 32.7 g/dl (32-36); MEAN PLATELET VOLUME 8.7 fL (7.4-10.4); PLATELET COUNT 864 K/uL (130-400); RED BLOOD COUNT 3.03 M/uL (4.2-5.4); WHITE BLOOD COUNT 12.06 K/uL (4.8-10.8)
[2016-11-04 06:48] LABS: CREATININE 0.54 mg/dl (0.60-1.20)
[2016-11-04 07:40] VITALS: BP 155/76; PULSE 98; TEMP 36.9; O2SAT 96
[2016-11-04] MEDS: METOPROLOL TARTRATE 25 MG TAB PO SCH ×2 (09:21→21:53)
[2016-11-04] MEDS: NYSTATIN POWDER 15GM BTL EXT SCH ×2 (09:21→21:53)
[2016-11-04] MEDS: DILTIAZEM HCL 240 MG CAPCR PO SCH (09:22)
[2016-11-04] MEDS: PANTOprazole SOD 40 MG TAB PO SCH (09:23)
[2016-11-04] MEDS: POLYETHYLENE (MIRALAX) 17 GM PACK PO SCH (09:23)
[2016-11-04] MEDS: INSULIN GLARGINE SOLOSTAR 100 UNITS/ML 3 ML PEN SC SCH ×2 (09:34→21:56)
[2016-11-04] MEDS: INSULIN ASPART 100 UNITS/ML 3 ML PEN SC SCH ×4 (09:39→22:03)
[2016-11-04] MEDS: ENOXAPARIN 40 MG/0.4 ML SYR SQ SCH (10:34)
[2016-11-04] MEDS: DAPTOmycin IV 600 MG in SODIUM CHLORIDE 0.9% 50ML 50 ML IV SCH (13:17)
--- NOTE | 2016-11-04 15:06 | Orthopedic Progress Note ---
Orthopedic Progress Note Date of Service Nov 04, 2016. Subjective Reports: feeling well, Denies: SOB, calf pain, chest pain, light headedness, nausea / vomiting Objective calves soft nontender, N/V intact, dressing C/D/I, incision C/D/I, A&O x3, toes mobile Date Time Temp Pulse Resp B/P Pulse Ox O2 Delivery O2 Flow Rate FiO2 11/04/16 08:18 Room Air 11/04/16 07:40 36.9 98 17 155/76 96 Room Air 11/04/16 00:00 Room Air 11/03/16 23:09 37.2 88 16 159/79 94 Room Air 11/03/16 16:30 93 Room Air 11/03/16 15:12 37.0 92 14 150/84 93 Room Air Laboratory Results 24 Hours: Test 11/04/16 05:50 Hematocrit 27.5 % Hemoglobin 9.0 g/dL Assessment & Plan Assessment: POD #13 s/p right BKA -currently on dapto due to allergy to vanco, 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 POD #10 s/p Left TKA I&D w/ poly exchange and Anbx beads Plan: Pt states that she is choosing to go to [facility] (SNF) DENIED 2nd CHOICE- [facility] Referral made by CM, WAITING ON ACCEPTANCE. STABLE ORTHOPEDICALLY FOR DISCHARGE. WILL LIKELY DC RUBÉN/SUTURES PRIOR TO DISCHARGE Plan to continue daily dressing changes on the Right lower extremity. Left knee wound can be open to the air. Will need to follow the small bruised area noted above Physical therapy can continue for the Left lower extremity. TKA protocol. WBAT. Antibx as per ID Team- DAPTO X 6 WEEKS *FOLLOW UP APPTS MADE FOR PATIENT TO SEE ELLEN CARSON AND MARIA ON 11/07/15 FOR WOUND CHECKS AND POSSIBLE SUTURE REMOVAL. 12:50PM FOR DR CARSON; 3:40PM FOR DR SIFUENTES*- WILL LIKELY NEED TO RESCHEDULE SINCE SHE IS STILL IN HOUSE. Inhouse Planning Pain Management: Ultram, PO Tylenol DVT Prophylaxis: SCDs, Lovenox Discharge Planning Discharge Planning: rehab hospital (REFERRAL PENDING FOR [facility])
--- NOTE | 2016-11-04 15:08 | Discharge Instructions ---
Discharge Instructions Date of Service Nov 04, 2016. (Adelia Shah,P.A.) Admission Reason for Admission: Atrial Fibrillation, Septic Arthritis On Knee, Lef (Adelia Shah,P.A.) Discharge Discharge Diagnosis / Problem: SP I & D LEFT TKA. RIGHT BKA (Adelia Shah,P.A.) Discharge Goals Goal(s): Decrease discomfort, Improve function, Increase independence (Adelia Shah,P.A.) Activity Recommendations Activity Level: Assistance Required Therapies: Physical Therapy, Occupational Therapy Weightbearing Status: Left weightbearing (as tolerated) ACTIVITY RECOMMENDATIONS: SELF CARE INSTRUCTIONS AFTER TOTAL KNEE REPLACEMENT A. You may need to continue a physical therapy program after discharge from the hospital. There are several options available to you. Your doctor will assist you in selecting the best one for you. 1. An out-patient facility 2 to 3 times a week for therapy or home therapy. 2. Continue working on all exercises taught to you in the hospital. Your goals should be to increase bending of your knee to 90 degrees and beyond and to fully straighten your knee. B. You may progress at your own pace from walking with a walker or crutches to a cane; then to no assistive devices. C. Make walking a part of your daily routine. Be up as much as comfortable with rest periods throughout the day. Rest with leg elevation is very important. Use the ice wrap frequently for the first 3-4 weeks. D. There are no restrictions on activities. You may ride in a car, shop, participate in ed physicians and all social activities. E. Wear the long elastic stockings (KAILEY hose) 20 hours a day for 2 weeks after surgery. They can be removed several times a day for laundering and for a bath. F. You may shower, no tub baths until cleared by your doctor. SPECIAL CARE INSTRUCTIONS: VERY IMPORTANT TO READ AND REVIEW A. There are a few signs you need to watch for after you are home. Call [facility] if you notice any of the followin. Increased severe knee pain. Some pain is expected especially when you exercise. 2. Increased swelling in your leg or knee; pain or swelling of the calf muscle in either lower leg. 3. Any fluid drainage from the incision. 4. Shortness of breath or chest pain. B. Please call [facility] at if you have any concerns or questions about your operation or recovery. The doctor or his nurse will return your call promptly. C. You must take antibiotics before dental work, bladder, bowel or other surgery. Your doctor will provide you with a permanent care to carry describing this precaution. IMPORTANT: * REMEMBER TO TAKE ASPIRIN, 81 MG, TWICE DAILY FOR 4 WEEKS UNLESS OTHERWISE DIRECTED. THIS IS YOUR BLOOD THINNER. * HIGH RISK PATIENTS MAY BE PRESCRIBED A STRONGER BLOOD THINNER. THIS WILL BE PROVIDED AT DISCHARGE. * CALL IF INCREASED PAIN, REDNESS, DRAINAGE OR FEVER GREATER THAT 101. * WEAR KAILEY HOSE 20 HOURS PER DAY FOR 2 WEEKS. FOLLOW UP VISIT: If appointment is not already scheduled: Please call [facility] to make a follow-up appointment for 2 weeks after your surgery at . . (Adelia Shah,P.A.) Additional Information Patient informed of condition: Yes Advance Directives: Yes DNR: No Level of Care: Acute Rehab Communicable Disease: No Prognosis: Stable (Adelia Shah,P.A.) Instructions / Follow-Up Instructions / Follow-Up BKA INSTRUCTIONS: CHANGE DRESSING EVERY OTHER DAY. CONTINUE TO USE RASHAAD WRAP/4X4'S OR ABD'S) SUTURES WILL STAY IN UNTIL ORDERED OUT BY DR CARSON (TYPICALLY 4-6 WEEKS FOR HIS BKA PATIENTS) CALL WITH ANY CHANGES IN THE INCISION. (INCREASED REDNESS, INCREASED DRAINAGE, OPENING OF WOUND, ETC.) FOLLOW UP WITH DR SIFUENTES/VERNA YEBOAH PA-C 11/20/16. CALL FOR THE TIME THAT HAS BEEN SCHEDULED. FOLLOW UP WITH DR CARSON/NICK VOGEL PA-C ON 11/19/16 AT 10:15AM (Zander Springer,P.A.) Instructions / Follow-Up FOLLOWUP WITH FAMILY DOCTOR ONE WEEK ON DISCHARGE FROM REHAB FOLLOWUP WITH HEMATOLOGY/ONCOLOGY IN 2-3 WEEKS FOR ANTICOAGULATION FOR DVT AND POSSIBLE REMOVAL OF IVC FILTER FOLLOWUP WITH CARDIOLOGY IN 2-3 WEEKS FOR A. FIB/ ATRIAL TACHYCARDIAS. (Sukumar Grubbs MD) Current Hospital Diet Patient's current hospital diet: Diabetes Type 2 Diet (Adelia Shah,P.A.) Discharge Diet Recommended Diet: Regular Diet (Adelia Shah,P.A.) Procedures Procedures Performed: Left Knee Incision and Drainage; Poly Exchange, Application of Stimulan Beads (Adelia Shah,P.A.) Pending Studies Studies pending at discharge: no (Adelia Shah,P.A.) Physician Orders On Transfer Additional Orders: Weekly CBC, CMP, CPK labs to be drawn starting 11/10/16. Results to [facility] [place]ious Disease Team (Trae Krueger or Feliciano) SUTURES ON DISTAL LEFT KNEE INCISION TO BE REMOVED ON 11/12/16 *DISREGARD ASPIRIN INSTRUCTIONS ON THE TOTAL KNEE REPLACEMENT INSTRUCTIONS!* (Zander Springer,P.A.) Laboratory Results Hemoglobin A1c Test 10/20/16 05:45 Range/Units Estimated Average Glucose 174 mg/dl Hemoglobin A1c 7.7 H 4.5-5.6 % (Adelia Shah,P.A.) Medical Emergencies . Who to Call and When: Medical Emergencies: If at any time you feel your situation is an emergency, please call 911 immediately. . (Adelia Shah,P.A.) Non-Emergent Contact Non-Emergency issues call your: Primary Care Provider . (Adelia Shah,P.A.) . "Provider Documentation" section prepared by Adelia Shah. (Adelia Shah,P.A.) Core Measure Problem Core Measures: None (Adelia Shah,P.A.)
[2016-11-04 15:25] VITALS: BP 124/75; PULSE 94; TEMP 37.1; O2SAT 92
[2016-11-04 16:00] VITALS: O2SAT 92
--- NOTE | 2016-11-04 19:19 | Progress Note ---
Internal Med Progress Note Date of Service: Nov 04, 2016. Provider Documentation: SUBJECTIVE: resting comfortably says eating ok moved bowels yesterday afebrile awaiting placement OBJECTIVE: Vital Signs-as noted below Exam: General-alert and oriented. Not in distress ENT-normal hearing Neck-no neck masses Lungs-cta b/l no wheezing no crackles Heart-s1 and s2 heard, regular rate and rhythm no murmurs Abdomen-soft bowel sounds present non tender no distension Extremities-s/p right bka s/p I and d and abx disc left knee Neuro-alert and awake moves extremities Lab data as noted below. ASSESSMENT & PLAN: 66F presented with severe sepsis secondary to infected LEFT TKA. Also patient had hx of PVD and recent amputations of right toes with bones exposing and vascular surgery recommended right BKA. Patient initially on iv daptomycin/ cefepime and Flagyl. All the cultures growing MRSA.Currently on Iv daptomycin. Patient is s/p Left knee I and D abx disc placement and also Right BKA.Patient developed rapid afib during initially presentation and was on Cardizem drip. Currently stable on po Cardizem and iv heparin. Hx of DVT and because of multiple procedures and been of of iv heparin vascular surgery placed ivc filter. Developed anemia requiring total of 4units prbc transfusion. No obvious source of bleeding, mostly from sepsis and post op. Monitor h and h while on iv heparin. Persistent bacteremia and cardiology did RUBI which is unremarkable. 6 weeks of iv of abx form negative blood cx as per ID. s/p picc line . Plan for rehab SEVERE SEPSIS bacteremia due to infected /septic left knee on empiric abx with Daptomycin /Cefepime /Flagyl ID eval appreciated Orthopedics on board pt had left total knee replacement done in 04/2000 s/p I and D of left TKA cx mrsa from I and D.and blood cx mrsa currently only on daptomycin repeat cx mrsa duration of abx as per ID has central line s/p picc line after blood cx negative RUBI unremarkable plan for 6 weeks of iv abx until 12/07. Choice of abx as per ID Awaiting placement DVT bilateral lower extremity s/p ivc filter by vascular surgery followup with Hematology for anticoagulation and possible removal of filter. AFIB RVR /Atrial tachycardia: appreciate input form Cardiology currently on po Cardizem and metoprolol rates under control iv heparin stopped for anemia stable ANEMIA : no obvious signs of bleeding received total 6units prbc hb 9.0 today Will monitor HYPOTENSION : due to severe sepsis given IV fluid bolus improved Recent Right foot toe amputations. hx of PVD s/p 2nd , 3rd and 4 th toe amputation with open wound , exposing bone wound care consulted iv abx as above vascular surgery recommends right BKA and s/p BKA on 10/22/16 pt/ot plan for rehab placement TYPE 2 DM : holding oral meds severe sepsis insulin SSI /basal Lantus pharmacy consulted for glycemic control will monitor FULL CODE DVT PROPHYLAXIS scds DISPOSITION Await placement pt/ot social service for d/c planning Vital Signs: Date Time Temp Pulse Resp B/P Pulse Ox O2 Delivery O2 Flow Rate FiO2 11/04/16 16:00 92 Room Air 11/04/16 15:25 37.1 94 16 124/75 92 Room Air 11/04/16 08:18 Room Air 11/04/16 07:40 36.9 98 17 155/76 96 Room Air 11/04/16 00:00 Room Air 11/03/16 23:09 37.2 88 16 159/79 94 Room Air Lab Results: Results Past 24 Hours Test 11/03/16 20:52 11/04/16 05:50 11/04/16 08:09 11/04/16 11:37 Range/Units Bedside Glucose 163 126 163 70-90 mg/dl White Blood Count 12.06 4.8-10.8 K/uL Red Blood Count 3.03 4.2-5.4 M/uL Hemoglobin 9.0 12.0-16.0 g/dL Hematocrit 27.5 37-47 % Mean Corpuscular Volume 90.8 80-100 fL Mean Corpuscular Hemoglobin 29.7 25-34 pg Mean Corpuscular Hemoglobin Concent 32.7 32-36 g/dl RDW Standard Deviation 49.9 36.4-46.3 fL RDW Coefficient of Variation 14.9 11.5-14.5 % Platelet Count 864 130-400 K/uL Mean Platelet Volume 8.7 7.4-10.4 fL Creatinine 0.54 0.60-1.20 mg/dl Est Creatinine Clear Calc Drug Dose 105.6 ml/min Estimated GFR () 113.2 Estimated GFR (Non- 97.6 Test 11/04/16 16:49 Range/Units Bedside Glucose 152 70-90 mg/dl
[2016-11-04 22:29] VITALS: BP 111/71; PULSE 94; TEMP 37; O2SAT 92
[2016-11-04] MEDS: TRAMADOL HCL 50 MG TAB PO PRN (23:29)
[2016-11-05 07:54] VITALS: BP 143/83; PULSE 86; TEMP 36.9; O2SAT 95
--- NOTE | 2016-11-05 09:22 | Orthopedic Progress Note ---
Orthopedic Progress Note Date of Service Nov 05, 2016. Subjective Post OP Day: 12 Reports: feeling well, pain controlled w PO medications, Denies: SOB, calf pain , chest pain, complaints, light headedness Objective incision C/D/I, A&O x3, toes mobile left knee skin edges well approximated, incision healing well. no drainage. mild erythema around distal aspect of incision right BKA- incision intact, no drainage noted. 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 POD #12 s/p Left TKA I&D w/ poly exchange and Anbx beads Plan: Pt states that she is choosing to go to [facility] (SNF) DENIED 2nd CHOICE- [facility] Referral made by CM, WAITING ON ACCEPTANCE. STABLE ORTHOPEDICALLY FOR DISCHARGE. will remove all karin today from the left knee but leave in remaining sutures until 11/12/16. Plan to continue daily dressing changes on the Right lower extremity. Left knee wound can be open to the air. Will need to follow the small bruised area noted above Physical therapy can continue for the Left lower extremity. TKA protocol. WBAT. Antibx as per ID Team- DAPTO X 6 WEEKS *FOLLOW UP APPTS MADE FOR PATIENT TO SEE DR. CARSON on 11/06/16 at 12:50 s/p Right below knee amputation. Also, appointment to see dr bajwa on 11/20/16 at 2: 30 for the left knee. Discharge Planning Discharge Planning: rehab hospital (REFERRAL PENDING FOR [facility])
[2016-11-05] MEDS: INSULIN ASPART 100 UNITS/ML 3 ML PEN SC SCH ×4 (09:52→21:49)
[2016-11-05] MEDS: INSULIN GLARGINE SOLOSTAR 100 UNITS/ML 3 ML PEN SC SCH ×2 (09:53→21:48)
[2016-11-05] MEDS: NYSTATIN POWDER 15GM BTL EXT SCH ×2 (09:53→21:41)
[2016-11-05] MEDS: POLYETHYLENE (MIRALAX) 17 GM PACK PO SCH (09:54)
[2016-11-05] MEDS: METOPROLOL TARTRATE 25 MG TAB PO SCH ×2 (09:54→21:41)
[2016-11-05] MEDS: PANTOprazole SOD 40 MG TAB PO SCH (09:54)
[2016-11-05] MEDS: DILTIAZEM HCL 240 MG CAPCR PO SCH (09:54)
[2016-11-05] MEDS: ENOXAPARIN 40 MG/0.4 ML SYR SQ SCH (09:55)
[2016-11-05] MEDS: TRAMADOL HCL 50 MG TAB PO PRN ×2 (10:13→14:00)
[2016-11-05] MEDS: DAPTOmycin IV 600 MG in SODIUM CHLORIDE 0.9% 50ML 50 ML IV SCH (12:43)
[2016-11-05 16:00] VITALS: BP 116/73; PULSE 83; TEMP 36.7; O2SAT 94
--- NOTE | 2016-11-05 20:08 | Progress Note ---
Internal Med Progress Note Date of Service: Nov 05, 2016. Provider Documentation: SUBJECTIVE: resting comfortably awaiting placement no pain afebrile OBJECTIVE: Vital Signs-as noted below Exam: General-alert and oriented. Not in distress ENT-normal hearing Neck-no neck masses Lungs-cta b/l no wheezing no crackles Heart-s1 and s2 heard, regular rate and rhythm no murmurs Abdomen-soft bowel sounds present non tender no distension Extremities-s/p right bka s/p I and d and abx disc left knee Neuro-alert and awake moves extremities Lab data as noted below. ASSESSMENT & PLAN: 66F presented with severe sepsis secondary to infected LEFT TKA. Also patient had hx of PVD and recent amputations of right toes with bones exposing and vascular surgery recommended right BKA. Patient initially on iv daptomycin/ cefepime and Flagyl. All the cultures growing MRSA.Currently on Iv daptomycin. Patient is s/p Left knee I and D abx disc placement and also Right BKA.Patient developed rapid afib during initially presentation and was on Cardizem drip. Currently stable on po Cardizem and iv heparin. Hx of DVT and because of multiple procedures and been of of iv heparin vascular surgery placed ivc filter. Developed anemia requiring total of 4units prbc transfusion. No obvious source of bleeding, mostly from sepsis and post op. Monitor h and h while on iv heparin. Persistent bacteremia and cardiology did RUBI which is unremarkable. 6 weeks of iv of abx form negative blood cx as per ID. s/p picc line . Plan for rehab. Awaiting placement SEVERE SEPSIS bacteremia due to infected /septic left knee on empiric abx with Daptomycin /Cefepime /Flagyl ID eval appreciated Orthopedics on board pt had left total knee replacement done in 04/2000 s/p I and D of left TKA cx mrsa from I and D.and blood cx mrsa currently only on daptomycin repeat cx mrsa duration of abx as per ID has central line s/p picc line after blood cx negative RUBI unremarkable plan for 6 weeks of iv abx until 12/07. Choice of abx as per ID plan for daptomycin Awaiting placement Stable conditions: DVT bilateral lower extremity s/p ivc filter by vascular surgery followup with Hematology for anticoagulation and possible removal of filter. AFIB RVR /Atrial tachycardia: appreciate input form Cardiology currently on po Cardizem and metoprolol rates under control iv heparin stopped for anemia stable ANEMIA : no obvious signs of bleeding received total 6units prbc hb 9.0 today Will monitor HYPOTENSION : due to severe sepsis given IV fluid bolus improved Recent Right foot toe amputations. hx of PVD s/p 2nd , 3rd and 4 th toe amputation with open wound , exposing bone wound care consulted iv abx as above vascular surgery recommends right BKA and s/p BKA on 10/22/16 pt/ot plan for rehab placement TYPE 2 DM : holding oral meds severe sepsis insulin SSI /basal Lantus pharmacy consulted for glycemic control will monitor FULL CODE DVT PROPHYLAXIS scds DISPOSITION Await placement pt/ot social service for d/c planning Vital Signs: Date Time Temp Pulse Resp B/P Pulse Ox O2 Delivery O2 Flow Rate FiO2 11/05/16 16:00 Room Air 11/05/16 16:00 36.7 83 16 116/73 94 Room Air 11/05/16 07:54 36.9 86 16 143/83 95 Room Air 11/05/16 07:50 Room Air 11/04/16 23:30 Room Air 11/04/16 22:29 37.0 94 18 111/71 92 Room Air Lab Results: Results Past 24 Hours Test 11/04/16 20:53 11/05/16 07:52 11/05/16 12:00 11/05/16 16:54 Range/Units Bedside Glucose 120 110 217 95 70-90 mg/dl
[2016-11-06 00:30] VITALS: BP 119/73; PULSE 71; TEMP 36.8; O2SAT 91
[2016-11-06 07:53] VITALS: BP 139/80; PULSE 79; TEMP 36.7; O2SAT 90
[2016-11-06] MEDS: TRAMADOL HCL 50 MG TAB PO PRN (07:59)
[2016-11-06 09:15] VITALS: BP 124/76; PULSE 79
[2016-11-06] MEDS: NYSTATIN POWDER 15GM BTL EXT SCH (09:15)
[2016-11-06] MEDS: PANTOprazole SOD 40 MG TAB PO SCH (09:16)
[2016-11-06] MEDS: METOPROLOL TARTRATE 25 MG TAB PO SCH (09:16)
[2016-11-06] MEDS: POLYETHYLENE (MIRALAX) 17 GM PACK PO SCH (09:16)
[2016-11-06] MEDS: ENOXAPARIN 40 MG/0.4 ML SYR SQ SCH (09:17)
[2016-11-06] MEDS: DILTIAZEM HCL 240 MG CAPCR PO SCH (09:17)
[2016-11-06] MEDS: INSULIN ASPART 100 UNITS/ML 3 ML PEN SC SCH ×2 (09:25→12:55)
[2016-11-06] MEDS: INSULIN GLARGINE SOLOSTAR 100 UNITS/ML 3 ML PEN SC SCH (09:26)
[2016-11-06 11:03] VITALS: BP 124/76; PULSE 79; TEMP 36.7; O2SAT 90
[2016-11-06] MEDS: DAPTOmycin IV 600 MG in SODIUM CHLORIDE 0.9% 50ML 50 ML IV SCH (11:50)
[2016-11-06] MEDS ORDERED: TYL325X PO (12:14)
[2016-11-06] MEDS ORDERED: ULT50X PO (12:14)
[2016-11-06] MEDS ORDERED: LPR25 PO (12:14)
[2016-11-06] MEDS ORDERED: LVNIS40 SQ (12:14)
--- NOTE | 2016-11-06 13:52 | Orthopedic Progress Note ---
Orthopedic Progress Note Date of Service Nov 06, 2016. Subjective Reports: feeling well, Denies: complaints Objective calves soft nontender (LLE), incision C/D/I, A&O x3, toes mobile (LLE) Continues with mild darkened erythema of the distal portion of the LLE wound. No overt drainage. No bright erythema. Dressing intact on R BKA incision. 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 POD #13 s/p Left TKA I&D w/ poly exchange and Anbx beads Plan: [facility]. Pt approved for [facility]. Planning for dc today. All karin removed yesterday from the left knee but leave in remaining sutures until 11/12/16. Plan to continue daily dressing changes on the Right lower extremity. Left knee wound can be open to the air. Physical therapy can continue for the Left lower extremity. TKA protocol. WBAT. Antibx as per ID Team- DAPTO X 6 WEEKS Inhouse Planning Pain Management: Ultram, PO Tylenol DVT Prophylaxis: SCDs, Lovenox Discharge Planning Discharge Planning: rehab hospital (REFERRAL PENDING FOR [facility])
[2016-11-06] MEDS ORDERED: CBCI IV (13:58)
--- NOTE | 2016-11-06 17:36 | Infectious Disease Progress Nt ---
Progress Note Date of Service Nov 06, 2016. Subjective Pt evaluation today including: conversation w/ patient, physical exam, chart review, lab review, review of studies, review of inpatient medication list No new labs. No new micro. Patient anticipating discharge to rehab facility this afternoon potentially. She likely will be going to [facility] with IV daptomycin. She does have a PICC line in place. She states that she has had some continued pain of the left knee, but she has not noted any drainage from her wound. She continues to feel very weak as well. All Other Systems: Reviewed and Negative Medications Reviewed Objective Vital Signs Date Time Temp Pulse Resp B/P Pulse Ox O2 Delivery O2 Flow Rate FiO2 11/06/16 11:03 36.7 79 19 90 Room Air 11/06/16 09:15 79 124/76 11/06/16 07:53 36.7 79 19 139/80 90 Room Air 11/06/16 07:50 Room Air 11/06/16 00:30 36.8 71 18 119/73 91 Room Air 11/06/16 00:20 Room Air 11/05/16 20:00 Room Air Physical Exam General Appearance: + mild distress, + obese Eyes: normal inspection, sclerae normal ENT: hearing grossly normal Neck: supple, trachea midline Respiratory/Chest: no respiratory distress, no accessory muscle use Cardiovascular: regular rate, rhythm Extremities: + pertinent finding (Right BKA. The left knee with mild swelling and mild surrounding erythema of the healing knee incision. Steri-Strips in place.) Neurologic/Psychiatric: alert, normal mood/affect Skin: warm/dry, no rash Laboratory Results Last 24 Hours Test 11/05/16 21:41 11/06/16 08:13 11/06/16 12:16 Bedside Glucose 183 mg/dl 176 mg/dl 263 mg/dl Assessment and Plan Diabetic female with left septic TKA- now s/p I & D x 2, wound infection of the right lower extremity- now s/p right BKA, and MRSA bacteremia. RUBI showed no evidence of vegetation. She continues on Daptomycin. Her most recent blood cultures are showing no growth to date. PICC line in place. She will need 6 weeks of IV abx from this first negative blood cultures- tentative stop date 12/07. She is anticipating discharge to [facility] with IV daptomycin at 6 mg/kg. She will need follow-up appointment in the office following discharge. PROVIDER ADDENDUM: Patient reviewed with Ms. Alberto. Agree with above assessment.
--- NOTE | 2016-11-11 18:27 | Discharge Summary ---
Orthopedic Discharge Summary Admission Date/Reason Oct 19, 2016 at 23:31 Atrial Fibrillation, Septic Arthritis On Knee, Lef. 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 Secondary Diagnoses/Problems: Right foot necrosis, Gangrene Peripheral artery disease. Bilateral lower extremity deep venous thromboses. Sepsis DVT- bilateral lower extremity AFIB RVR /Atrial tachycardia: Post-op Anemia Type 2 DM : Procedure(s) Performed Dr Ibarra: I&D and poly exchange left total knee Replacement Dr Car- Right Leg below knee amputation Dr Steward: Insertion of Inferior Vena Cava Filter, Right Jugular Approach, Ultrasound Localization Of Right Internal Jugular Vein, Fluoroscopy for Positioning, Insertion Of Triple Lumen Catheter Right Internal Jugular Consultations [facility] [place]- medical management Infectious Disease [facility] [place] Cardiology Dr Steward- Vascular Medication Reconciliation New Medications: Daptomycin (Cubicin) 500 Mg Kelly 600 MG IV DAILY for 30 Days Acetaminophen (Tylenol) 325 Mg Tab 650 MG PO Q4H PRN for fever/pain for 10 Days, #80 TAB Enoxaparin (Enoxaparin Sodium) 40 Mg/0.4 Ml Inj 40 MG SQ QAM for 14 Days Metoprolol Tartrate (Lopressor) 25 Mg Tab 25 MG PO BID for 10 Days, #20 TAB Tramadol HCl (Tramadol HCl) 50 Mg Tab 50-100 MG PO Q4H PRN for Pain, #60 TAB Continued Medications: Cholecalciferol (Vitamin D3) 1,000 Unit Cap PO DAILY Diltiazem Hcl Coated Beads (Cardizem Cd) 240 Mg Cap 1 CAP PO DAILY for 30 Days, #30 CAP 5 Refills Docusate Sodium (Colace) 100 Mg Cap 1 CAP PO BID for 15 Days, #30 CAP Famotidine (Pepcid) 20 Mg Tab 20 MG PO, TAB Folic Acid (Folvite) 1 Mg Tab 1 TAB PO DAILY for 90 Days, #90 TAB 1 Refill Glipizide Xl (Glucotrol Xl) 10 Mg Tab 10 MG PO QAM, TAB Insulin Aspart (Novolog) 100 Units/Ml Inj SQ QID Insulin Glargine (Lantus) 100 Unit/Ml Inj 18 SC BID, VIAL Ondansetron Odt (Zofran Odt) 8 Mg Soltab 4 MG SL Q4H PRN for Nausea, TAB Discontinued Medications: Ciprofloxacin Tab (Cipro) 250 Mg Tab 500 MG PO Q12, TAB Hydrocodone/Acetaminophen 5MG/325MG ([place] 5MG/325MG) Tab 1 TAB PO Q4 for 30 Days, #90 TAB PRN PAIN Admission Physical Exam As per Admitting History & Physical. Hospital Course Patient was admitted on 10/20/16 due to severe sepsis secondary to an infected left total knee replacement. During admission, she was also found to have infection of her right foot as well as bilateral lower extremity DVTs. Also with h/p PVD and recent amputations of right toes. Vascular consultation placed and recommended right BKA. During admission, patient developed rapid Afib and cardiology consultation placed, please refer to consultation and daily progress notes for complete details. Also due to bilateral DVTs, dr steward placed IVC filter. Also developed post op anemia requiring a total of 6 units of PRBC during her admission. No obvious source of bleeding was found, and was most likely from sepsis and multiple surgeries. Patient underwent RUBI and was unremarkable. Infectious Disease consult placed and recommend 6 weeks of antibiotics and had PICC line placed and currently on Daptomycin, antibiotics recommended until 12/07/16. It was recommended that patient follow up with hematology for anticoagulation and possible removal of the filter. Patient stable for transfer to [facility] and will follow up at [facility] in 2 weeks for re- evaluation of Right BKA and Left Knee I&D/poly change. Please refer to daily progress notes for complete details. Discharge Instructions Please refer to the electronic Patient Visit Report (Discharge Instructions) for additional information.
[2017-01-22] MEDS ORDERED: CHOL1000 PO (09:48)
[2017-01-22] MEDS ORDERED: DOCU-94 PO (09:48)
[2017-01-22] MEDS ORDERED: MULT-513 PO (09:48)
[2017-01-22] MEDS ORDERED: HYDR-5688 PO (09:48)
[2017-01-22] MEDS ORDERED: POLY335019 PO (09:48)
[2017-01-22] MEDS ORDERED: SENN-65 PO (09:48)
[2017-01-22] MEDS ORDERED: MECL1TAB42 PO (09:48)
[2017-01-22] MEDS ORDERED: GABA-112 PO (09:48)
[2017-02-16] MEDS ORDERED: DOXY100C76 PO (14:56)
[2017-03-03] MEDS ORDERED: DIPH25CA65 PO (08:52)
[2017-03-03] MEDS ORDERED: DPRSCR15 TOP (08:53)
[2017-03-03] MEDS ORDERED: BISA10SU38 PR (08:56)
[2017-03-03] MEDS ORDERED: SODI1ENE RE (08:58)
[2017-03-03] MEDS ORDERED: GLGKIT IM (08:59)
[2017-03-03] MEDS ORDERED: DEXT40GE PO (09:00)
[2017-03-03] MEDS ORDERED: MOMLX PO (09:02)
[2017-03-03] MEDS ORDERED: POLY335019 PO (09:03)
[2017-03-03] MEDS ORDERED: NYST1POW7 TOP (09:04)
== END 2016-11-06 15:25 | DRG 474 ==
LOC: ENRESERVDT → ENRESERVTM → UNDOADMIN 21:08 → C.2E 21:08 → UNDOADMIN 23:31 → C.2E 23:31 → C.MSICU 10-20 16:06 → CANBEDREQ 10-24 14:40 → C.MSW 10-24 15:13 → C.2T 10-28 14:33 → C.MSN 11-01 15:11
PROVIDERS: ADMIT Orthopaedic Surgery Sports Medicine; ATTEND Orthopaedic Surgery Sports Medicine
PROC: 0S9D3ZZ Drainage of Left Knee Joint, Percutaneous Approach (ICD-10-PCS; 2016-10-21)
PROC: 02HV33Z Insertion of Infusion Device into Superior Vena Cava, Percutaneous Approach (ICD-10-PCS; principal; 2016-10-21 11:00)
PROC: 06H03DZ Insertion of Intraluminal Device into Inferior Vena Cava, Percutaneous Approach (ICD-10-PCS; principal; 2016-10-21 11:00)
PROC: B5191ZZ Fluoroscopy of Inferior Vena Cava using Low Osmolar Contrast (ICD-10-PCS; principal; 2016-10-21 11:00)
PROC: 0Y6H0Z1 Detachment at Right Lower Leg, High, Open Approach (ICD-10-PCS; 2016-10-22)
PROC: 0SPD09Z Removal of Liner from Left Knee Joint, Open Approach (ICD-10-PCS; 2016-10-24 07:15)
PROC: 0SUW09Z Supplement Left Knee Joint, Tibial Surface with Liner, Open Approach (ICD-10-PCS; 2016-10-24 07:15)
DX: T84.54XA Infection and inflammatory reaction due to internal left knee prosthesis, initial encounter (principal); A41.9 Sepsis, unspecified organism; R65.20 Severe sepsis without septic shock; L03.116 Cellulitis of left lower limb; I82.403 Acute embolism and thrombosis of unspecified deep veins of lower extremity, bilateral; L03.115 Cellulitis of right lower limb; D62 Acute posthemorrhagic anemia; E11.52 Type 2 diabetes mellitus with diabetic peripheral angiopathy with gangrene; M86.8X7 Other osteomyelitis, ankle and foot; I10 Essential (primary) hypertension; E78.5 Hyperlipidemia, unspecified; E11.51 Type 2 diabetes mellitus with diabetic peripheral angiopathy without gangrene; M19.90 Unspecified osteoarthritis, unspecified site; Z79.4 Long term (current) use of insulin; Z79.899 Other long term (current) drug therapy; E78.00 Pure hypercholesterolemia, unspecified; E11.65 Type 2 diabetes mellitus with hyperglycemia; E87.6 Hypokalemia; Y83.1 Surgical operation with implant of artificial internal device as the cause of abnormal reaction of the patient, or of later complication, without mention of misadventure at the time of the procedure; I48.0 Paroxysmal atrial fibrillation; E66.9 Obesity, unspecified; D47.3 Essential (hemorrhagic) thrombocythemia; B95.62 Methicillin resistant Staphylococcus aureus infection as the cause of diseases classified elsewhere; E11.69 Type 2 diabetes mellitus with other specified complication; Z89.421 Acquired absence of other right toe(s)

== ENCOUNTER 2016-11-13 11:32 | Inpatient (IN) | payer OTHER ==
[~2016-11-13] VITALS: Ht 165.1 cm; Wt 84.0 kg
[~2016-11-13 11:32] MED LIST: CBCI IV; CHOL1CAP57 PO; DILT240C57 PO; DOCU-94 PO; FAMO20TA11 PO; FOLI1TAB7 PO; GLIP1TAB85 PO; INSDGI SC; LPR25 PO; LVNIS40 SQ; NVLG SQ; ONDA8TAB62 SL; TYL325X PO; ULT50X PO
[2016-11-13] MEDS ORDERED: MoRPHine SULFATE 2 MG/ML CARP IV PRN ×2 (11:45→13:30)
[2016-11-13] MEDS ORDERED: ONDANSETRON INJ 2 MG/ML 2 ML VIAL IV PRN (11:45)
[2016-11-13 12:45] VITALS: BP 170/91; PULSE 84; TEMP 36.7; O2SAT 91
[2016-11-13 13:06] VITALS: BP 170/91; PULSE 84; TEMP 36.7; Ht 165.1 cm; Wt 84.0 kg
[2016-11-13] MEDS ORDERED: MoRPHine SULFATE 10 MG/ML CARP/VIAL IV PRN (13:30)
--- NOTE | 2016-11-13 13:41 | HISTORY & PHYSICAL EXAMINATION ---
DATE OF ADMISSION: 11/13/2016 REASON FOR ADMISSION: Left knee infection. HISTORY OF PRESENT ILLNESS: Emani is a 66-year-old female who presented to the office today after undergoing a left knee I\T\D and poly exchange on 10/22/2016. She initially had this knee replaced in April of 2000 and was doing well. She did recently develop an infection on her right foot for which she had partial amputations of second, third and fourth toes, which was performed on 09/29/2016. She was admitted to [facility] 10/19/2016 for an increased left knee pain. At that point in time, the patient was noted to be septic with a septic left knee as well as infected right foot. Dr. Car then performed a below knee amputation on her right leg. With regards to her left leg, a left knee I\T\D was performed by Dr. Ibarra on 10/21/2016, and then underwent a left knee I\T\D and poly exchange on 10/24/2016. The patient had a prolonged hospital stay for multiple reasons including IV antibiotics, DVT, postoperative anemia. She also underwent insertion of an inferior vena cava filter by Dr. Botello. She was discharged to [facility], our office received a phone call yesterday, the patient's knee was having increased pain as well as serous drainage from the distal aspect of her incision. This was evaluated today, knee was aspirated and sent for Gram stain, cell count, culture sensitivity, as well as sed rate, CRP. After examination of the knee, it was felt the patient would require admission to the hospital as well as I\T\D with removal of total knee implant and placement of antibiotic spacer on 11/14/[address] Ibarra. PAST MEDICAL HISTORY: 1. Peripheral arterial disease. 2. Bilateral lower extremity DVTs. 3. History of sepsis. 4. AFib. 5. Type 2 diabetes. ALLERGIES: 1. RASHAAD INHIBITORS CAUSES A RASH. 2. Lipitor CAUSES A RASH. 3. INVANZ CAUSES A RASH. 4. ZOSYN - RASH. 5. SITAGLIPTIN CAUSES A RASH. 6. VANCOMYCIN CAUSES A RASH. CURRENT MEDICATIONS: Upon admission: 1. Daptomycin 600 mg IV daily. 2. Tylenol. 3. Lovenox 40 mg daily. 4. Metoprolol 25 mg b.i.d. 5. Tramadol as needed for pain. 6. Vitamin D3. 7. Diltiazem. 8. Colace. 9. Pepcid. 10. Folic acid. 11. Glipizide. 12. NovoLog insulin. 13. Lantus. 14. Zofran. PAST SURGICAL HISTORY: Relevant to this admission is: 1. A left total knee replacement in 1999. 2. I\T\D and toe amputation of the right foot in September of 2016. 3. I\T\D of left knee - 10/21/2016. 4. Right below knee amputation - 10/22/2016. 5. I\T\D with poly exchange and application of stimulant beads - 10/24/2016. FAMILY HISTORY: Noncontributory. SOCIAL HISTORY: The patient currently a resident at [facility]. PHYSICAL EXAMINATION: GENERAL: A 66-year-old female resting comfortably in a litter in exam room, in no acute distress. HEENT: Normocephalic, atraumatic. CARDIAC: No murmurs or gallops appreciated. LUNGS: Clear to auscultation without rales or wheeze bilaterally. ABDOMEN: Soft, nontender. EXTREMITIES: Left lower extremity is neurovascularly intact. The mid portion to proximal portion of her incision is healing well. There is maceration noted to the distal aspect of the incision, 4-0 nylon sutures are still in place, there is serous drainage noted as well as surrounding erythema around the distal aspect of the incision. This area is exquisitely tender. Her right below knee amputation appears to be healing well. There is no drainage, no erythema noted. IMPRESSION: Infected left total knee replacement. PAST MEDICAL HISTORY: As outlined above. PLAN: Further care discussed with the patient as well as reviewed with Dr. Ibarra, at this point in time it was felt the patient would require readmission to the hospital and will keep her n.p.o. for tomorrow morning, will plan for I\T\D as well as removal of total knee implant and placement of antibiotic spacer. In the meantime, we will aspirate the knee and send for cell count, culture and sensitivity, Gram stain or sed rate, CRP. Will continue with IV daptomycin, consult placed for infectious disease as well as medical consult for clearance for tomorrow. We will keep her n.p.o. after midnight, would need to stop her Lovenox. The patient otherwise has no other questions or concerns.
[2016-11-13] MEDS: SODIUM CHLORIDE 0.9% 1000ML 1,000 ML IV SCH (13:53)
[2016-11-13] MEDS: DAPTOmycin IV 600 MG in SODIUM CHLORIDE 0.9% 50ML 50 ML IV SCH (14:09)
[2016-11-13] MEDS ORDERED: GLUCAGON FOR INJ 1 MG VIAL SQ PRN (14:30)
[2016-11-13] MEDS ORDERED: GLUCOSE 40% GEL 15 GM TUBE PO PRN (14:30)
[2016-11-13] MEDS ORDERED: GLUCOSE 10 TABS/TUBE PO PRN (14:30)
[2016-11-13] MEDS ORDERED: PHARMACY GLYCEMIC MGMT CONSULT PRN (14:30)
--- NOTE | 2016-11-13 14:32 | Progress Note ---
Progress Note Date of Service Nov 13, 2016. Progress Note ID Consult Dictated #[id number] A/P: 1. L knee infection, for OR in am -continue dapto, labs, aspirate results pending -follow OR findings -if worsening would add levaquin 500mg IV daily pending culture results -if fevers, check blood cultures -will follow, thank you
[2016-11-13 14:34] LABS: HEMATOCRIT 28.1 % (37-47); MEAN CELL VOLUME 87.8 fL (80-100); MEAN CORPUSCULAR HEMOGLOBIN 29.1 pg (25-34); MEAN CORPUSCULAR HGB CONC 33.1 g/dl (32-36); MEAN PLATELET VOLUME 8.9 fL (7.4-10.4); PLATELET COUNT 623 K/uL (130-400); WHITE BLOOD COUNT 15.09 K/uL (4.8-10.8)
[2016-11-13 14:36] LABS: URINE APPEARANCE CLEAR (CLEAR); URINE BILIRUBIN NEG (NEG); URINE COLOR DK YELLOW; URINE NITRITE NEG (NEG); URINE SPECIFIC GRAVITY 1.018 (1.000-1.030); UROBILINOGEN NEG (NEG)
[2016-11-13 14:43] LABS: INR 1.1 (0.9-1.1); PROTHROMBIN TIME (PATIENT) 12.3 SECONDS (9.0-12.0)
[2016-11-13 14:48] LABS: MANUAL MICROSCOPIC REQUIRED? NO; REVIEW REQ? YES; SULFASALICYLIC ACID POS (NEG)
--- NOTE | 2016-11-13 14:50 | Medical Consult ---
Consultation Date of Consultation: Nov 13, 2016. Attending Physician: Caesar Ibarra D.O. Reason for Consultation: Preop Clearance, Medical Management History of Present Illness Patient seen and examined. 66 year old female with PMHx of DM2, Afib, HTN, HLD and recent complicated history of Left TKA infection, right lower extremity grangrene s/p RBKA, and MRSA bactermia is seen in consultation for preop clearance. Patient was recently admitted from 10/19-10/24 for septic arthritis. She underwent I&D and poly exchange of left total knee arthroplasty. Hospital course was complicated by severe sepsis secondary to MRSA bacteremia, right foot necrosis requiring RBKA, and BL DVT s/p IVC filter placement and postop anemia. She was discharged to [facility] on a prolonged course of IV daptomycin. Patient reports she was doing well but has had increasing pain in the LLE. She reports she saw Dr. Ibarra today who was concerned about the drainage from the left knee and directly admitted the patient for additional knee surgery pending preop clearance. Patient reports feeling well. She states she feels confused at time with all the different medical things going on recently. She denies fevers, chills, chest pain, palpitations, nausea, vomiting , diarrhea. Past Medical/Surgical History Medical Problems: (1) Atrial fibrillation Status: Chronic (2) DM2 (diabetes mellitus, type 2) Status: Chronic (3) DVT (deep vein thrombosis) in Status: Chronic (4) GERD (gastroesophageal reflux disease) Status: Chronic (5) HTN (hypertension) Status: Chronic (6) Hx of right BKA Status: Chronic Surgical Problems: (1) History of total knee arthroplasty Status: Chronic (2) S/P IVC filter Status: Chronic Family History No pertinent family history Social History Smoking Status: Never Smoker Alcohol Use: none Drug Use: none Allergies Coded Allergies: RASHAAD Inhibitors (Verified Allergy, Unknown, RASH, 10/19/16) unknown reaction Atorvastatin (Verified Allergy, Unknown, rash, 10/19/16) unknown reaction Ertapenem (Verified Allergy, Unknown, rash, 10/19/16) unknown reaction Piperacillin (Verified Allergy, Unknown, rash, 10/19/16) Saxagliptin (Verified Allergy, Unknown, rash, 10/19/16) unknown reaction Simvastatin (Verified Allergy, Unknown, rash, 10/19/16) unknown reaction Tazobactam (Verified Allergy, Unknown, rash, 10/19/16) Vancomycin (Verified Allergy, Unknown, rash, 10/19/16) Current Inpatient Medications Current Inpatient Medications Medications (Trade) Dose Ordered Sig/Denisse Route Start Time Stop Time Status Last Admin Dose Admin Ondansetron HCl (Zofran Inj) 4 mg Q6H PRN IV 11/13/16 11:45 12/13/16 11:44 Pantoprazole Sodium 40 mg 40 mg QAM PO 11/14/16 09:00 12/14/16 08:59 Sodium Chloride (Nss 1000ml) 1,000 ml @ 75 mls/hr [id number] IV 11/13/16 13:30 12/13/16 13:29 11/13/16 13:53 75 MLS/HR Acetaminophen (Tylenol Tab) 650 mg Q4H PRN PO 11/13/16 13:00 12/13/16 12:59 Diltiazem HCl (Cardizem Cd Cap) 240 mg DAILY PO 11/14/16 09:00 12/14/16 08:59 Docusate Sodium (coLACE CAP) 100 mg BID PO 11/13/16 21:00 12/13/16 20:59 Folic Acid (Folvite Tab) 1 mg DAILY PO 11/14/16 09:00 12/14/16 08:59 Metoprolol Tartrate (Lopressor Tab) 25 mg BID PO 11/13/16 21:00 12/13/16 20:59 Tramadol HCl (Ultram Tab) 50 mg Q4H PRN PO 11/13/16 13:00 12/13/16 12:59 Morphine Sulfate (MoRPHine SULFATE INJ) 2 mg Q4H PRN IV 11/13/16 13:30 11/27/16 13:29 Morphine Sulfate (MoRPHine SULFATE INJ) 4 mg Q4H PRN IV 11/13/16 13:30 11/27/16 13:29 Morphine Sulfate 6 mg 6 mg Q4H PRN IV 11/13/16 13:30 11/27/16 13:29 Daptomycin/Sodium Chloride (Cubicin IV/Nss 50ml) 62 ml @ 120 mls/hr Q24H IV 11/13/16 14:00 12/25/16 13:59 11/13/16 14:09 120 MLS/HR Insulin Aspart (novoLOG ASPART) SLIDING SCALE If C... ACHS SC 11/13/16 17:15 12/13/16 17:14 UNV Glucose (Glucose 40% Gel) 15-30 GRAMS 15 GRAMS... UD PRN PO 11/13/16 14:30 12/13/16 14:29 UNV Glucose (Glucose Chew Tab) 4-8 Tablets 4 Tabl... UD PRN PO 11/13/16 14:30 12/13/16 14:29 UNV Dextrose (Dextrose 50% 50ML Syringe) 25-50ML OF 50% DW IV FOR... UD PRN IV 11/13/16 14:30 12/13/16 14:29 UNV Glucagon (Glucagon Inj) 1 mg UD PRN SQ 11/13/16 14:30 12/13/16 14:29 UNV Miscellaneous Information (Consult Glycemic Management Pharmacy) 1 ea ONE STAT N/A 11/13/16 14:20 11/13/16 14:21 UNV Review of Systems See above for pertinent positives & negatives. A total of 10 systems reviewed and were otherwise negative. Physical Exam Date Time Temp Pulse Resp B/P Pulse Ox O2 Delivery O2 Flow Rate FiO2 11/13/16 13:23 Room Air 11/13/16 13:06 36.7 84 20 170/91 Room Air 11/13/16 12:45 36.7 84 20 170/91 91 Room Air General Appearance: + pertinent finding (WD/WN 66 year old female lying in bed in NAD ) Head: normocephalic, atraumatic Eyes: PERRL, EOMI, sclerae normal ENT: hearing grossly normal, pharynx normal Neck: supple, no JVD Respiratory/Chest: chest non-tender, lungs clear, normal breath sounds, no respiratory distress, no accessory muscle use Cardiovascular: regular rate, rhythm, no edema, no gallop, no JVD, no murmur, normal peripheral pulses Abdomen/GI: normal bowel sounds, non tender, soft Genitourinary - Female: + pertinent finding (ellis pale yellow urine ) Extremities/Musculoskelatal: no calf tenderness, normal capillary refill, no pedal edema, + pertinent finding (Left knee with mild erythema and trace serous drainage, right BKA well healing ) Neurologic/Psych: alert, oriented x 3, + pertinent finding (no focal deficits ) Skin: normal color, warm/dry, no rash Lymphatic: no adenopathy Laboratory Results Last 24 Hours Test 11/13/16 00:00 11/13/16 11:44 11/13/16 11:53 11/13/16 13:50 Test 11/13/16 14:19 Assessment & Plan SEPTIC ARTHRITIS LEFT TOTAL KNEE ARTHROPLASTY -preop evaluation: -66 year old female with PMHx of Afib, DM2, and other issues listed below with recent complicated history of bacteremia/sepsis, recent RBKA, anemia -Patient had seen by cardiology during previous admission for preop clearance. Was deemed moderate risk. however had complicated postop course - Cardiology consult for preop risk stratification -echo on 10/27/16 EF 60-65% moderate concentric LVH -Check EKG, CXR -admission lab work is pending at this time H/O MRSA BACTEREMIA -on daptomycin -management per ID ATRIAL FIBRILLATION -check EKG -continue Diltiazem, Metoprolol -anticoagulation currently on hold for surgery DM2 -hold glipizide -SSI coverage -pharmacy consulted for dosing ANEMIA -H&H pending HTN -stable -continue BB, diltiazem H/O DVT -S/P IVC filter DVT PROPHYLAXIS: per ortho CODE STATUS: FULL CODE DISPO:per ortho Patient seen in collaboration with Dr. Nichols Thank you for this consultation. We will follow the patient with you during their hospital stay. You can reach a [facility]/03 via pager @ . I have seen and examined the patient and have discussed the case with the provider above. I agree with the assessment and plan as stated. Ms. Johnson has been cleared to proceed to surgery in am with moderate perioperative cardiac risk. Physical exam as above and hemodynamically stable and afebrile. Nurse is aware of 50% reduction in Lantus while patient is NPO tonight. Pain is 10/10 --Tramadol was just given. Options for pain treatment were reviewed with the patient who understands her options if pain not controlled in next 30 mins or so. Agree with current management. Appreciate the consult. Will follow with you during this hospitalization. Jamia Nichols, Hospitalist
[2016-11-13 14:55] LABS: URINE EPITHELIAL CELL AUTO 0-5 /lpf (0-5)
[2016-11-13 15:01] LABS: BUN/CREATININE RATIO 16.4 (10-20); CALCIUM 8.4 mg/dl (8.5-10.1); CREATININE 0.53 mg/dl (0.60-1.20); POTASSIUM 3.8 mmol/L (3.5-5.1)
--- NOTE | 2016-11-13 15:03 | DIAGNOSTIC IMAGING REPORT ---
CHEST ONE VIEW PORTABLE CLINICAL HISTORY: preop preoperative evaluation COMPARISON STUDY: 10/19/2016 FINDINGS: Right-sided PICC catheter place in superior vena cava. The lungs are considered clear. Mild fullness of the mediastinum felt to be secondary to the AP portable technique. IMPRESSION: Central catheter within the superior vena cava. No evidence of pneumothorax. No acute process. Electronically signed by: Anam Crenshaw M.D. 11/13/2016 3:01 PM Dictated Date/Time: 11/13/2016 3:00 PM
--- NOTE | 2016-11-13 15:05 | Pharmacy Progress Note ---
Glycemic Control Intl Consult Date of Service Nov 13, 2016. Scope Glycemic Pharmacist consulted by Kenn Carbone on 11/13/16 for glycemic control and to write orders per [facility] inpatient glycemic control protocol Objective Weight (Kilograms): 100.000 Accuchecks BSG (last 24hrs): Test 11/13/16 14:20 11/13/16 14:43 Bedside Glucose 118 mg/dl (70-90) Laboratory Data (last 24hrs) Test 11/13/16 14:20 White Blood Count 15.09 K/uL Recent Pertinent Medications Outpatient Anti-diabetic Regimen: * Glipizide ER 10mg qAM, Novolog QID per SS, Lantus 18 units BID * A1c = 7.7 % 10/20/16 Risk Factors for Insulin Resistance: * Infection: Infected total knee replacement * IVF: NS at 75 ml/hr * Recent Surgery: L TKR 10/22/16; To OR tomorrow AM for abx spacer * Diet: DM2/NPO after midnight for OR Assessment & Plan ASSESSMENT: * ADA & AACE recommend a goal blood sugar range 140-180 mg/dl for the majority of critically ill & non-critically ill patients. However, more stringent targets may be selected in individual cases. * Pt is a 66 yo female readmitted s/p L TKR on 10/22/16. Knee is infected and requires surgical intervention tomorrow by Dr. Ibarra. * The pharmacy glycemic service is somewhat familiar with this patient from her most recent admission. Will begin an inpatient glycemic regimen based primarily on past admission data. * Will be a priority to keep BSGs controlled in setting of infection and surgery. * Pt is maintained on oral antidiabetic agent - Glipizide ER - as an outpatient * Oral agents are not recommended for inpatient use d/t drug interactions, changing PO intake, and difficulty titrating for acute hyper/hypoglycemia. ADA recommends re-initiating outpatient oral agents 1-2 days prior to discharge if/ when appropriate if they were held on admission. * Will hold oral agents for admission and utilize SQ basal bolus insulin regimen which is the recommended regimen for inpatient glycemic control. PLAN FOR INPATIENT GLYCEMIC CONTROL: * Start Lantus 18 units BID, give 1/2 dose for BSG below 110 mg/dl * Novolog ACHS * Set correction factor to 20 mg/dl/unit * Set carb ratio to 1 unit per 6 grams CHO consumed * Set goal range to Low 110 mg/dL - High 140 mg/dL * Please note that the plan above was derived based on current level of insulin resistance and hospital stress. These recommendations are appropriate for inpatient admission only. Plan of care upon discharge will need to be reassessed to avoid potential outpatient hypo/hyperglycemia. Thank you.
[2016-11-13 15:15] LABS: SYNOVIAL FLUID APPEARANCE BLOODY; SYNOVIAL FLUID COLOR RED
[2016-11-13 15:18] VITALS: BP 148/82; PULSE 69; TEMP 36.4; O2SAT 92
--- NOTE | 2016-11-13 15:44 | INFECT. DISEASE CONSULTATION ---
DATE OF CONSULTATION: 11/13/2016 REQUESTING PHYSICIAN: Caesar Ibarra DO HISTORY OF PRESENT ILLNESS: This is a 66-year-old female who was admitted from the orthopedic office after she had worsening drainage from a left knee incision. She did have initial surgery in 1999 and did well up until September 2016. She was found to have infection of lower extremity ulcer. This ultimately required a BKA on the right lower extremity. In October, she had worsening left knee pain and she was found to have MRSA bacteremia. She as well was found to have an infected knee and underwent poly exchange on the 24 of October. She did clear her blood cultures on the 26 of October and was discharged on IV daptomycin. She had been tolerating this well. She does have a PICC line in the right upper extremity. She did follow up in the office today after it was noted that there was increased pain in the knee and also drainage from distal portion of her incision. She was evaluated today in the office where an aspiration was performed. Results of this are pending. She was then subsequently admitted to the hospital so she could undergo a knee replacement and antibiotic spacer, which is tentatively scheduled for tomorrow. She remains on daptomycin. All of her laboratory studies today are pending. She is afebrile. She is complaining of some knee pain. She denies any fevers or chills. She has no cough, shortness of breath, chest pain, nausea, vomiting or diarrhea. Her remaining review of systems is unremarkable. PAST MEDICAL HISTORY: Her medical history is significant for peripheral arterial disease, lower extremity DVT, AFib, and type 2 diabetes. PAST SURGICAL HISTORY: Significant for a left total knee replacement in 1999 requiring poly exchange in October of 2016. She did have toe amputations in September 2016 and subsequent BKA on the right in October 2016. FAMILY HISTORY: Noncontributory. ALLERGIES: INCLUDE RASHAAD INHIBITORS, LIPITOR, INVANZ, ZOSYN, SITAGLIPTIN AND VANCOMYCIN. SOCIAL HISTORY: Significant for a resident at [facility]. CURRENT MEDICATIONS: Include Protonix, diltiazem, folic acid, Colace, Lopressor, insulin, daptomycin, morphine, acetaminophen, Ultram and Zofran. PHYSICAL EXAMINATION: VITAL SIGNS: She is afebrile, pulse 84, respiratory rate is 20, blood pressure is 170/91, and oxygen saturation is 91% on room air. GENERAL: She is awake, alert and oriented x3. She is in no acute distress. HEENT: Mucous membranes are moist. Extraocular muscles are intact. HEART: Regular. LUNGS: Clear. ABDOMEN: Soft and nondistended. SKIN: Dressing is clean, dry and intact. There is pain and some erythema over the knee incision. Skin is otherwise without rash. PICC line is clean, dry and intact in the right upper extremity with no surrounding induration, edema, warmth or erythema. LABORATORY AND IMAGING DATA: Laboratory studies are pending. Gram stain and culture of the knee are pending. There is no imaging to review. ASSESSMENT AND PLAN: Infected left knee with a previous history of methicillin-resistant Staphylococcus aureus infection and methicillin-resistant Staphylococcus aureus bacteremia. Blood cultures will be obtained as well. She will continue on daptomycin. Results from her aspiration are pending and will be followed as well. OR is tentatively scheduled to tomorrow. We will follow along with you. Thank you for this consultation.
--- NOTE | 2016-11-13 18:28 | Anesthesiology Progress Note ---
Anesthesia Progress Note Date of Service Nov 13, 2016. Progress Notes Ms. Johnson is well known to the anesthesia service as she had multiple procedures requiring anesthesia in mid October 2016. She is back for continued infection in her left knee. She is slated for a left knee I and D, implant removal and placement of antibiotic spacer. During her previous hospital stay she had L knee I and D with poly exchange, IVC filter placement (patient with DVT but not on anticoagulation), and right BKA. She tolerated general anesthesia without incident. PMH significant for SOB, paroxysmal A fib (currently in sinus rhythm via ECG 11/13/16), GERD, HTN, PVD, DVT b/l LE, IDDM, anemia and obesity. She is a never smoker with METS less than 2. Patient had anesthesia discussed and she again agreed to general anesthesia. Consent was obtained and patient appears optimized enough to undergo the procedure tomorrow.
--- NOTE | 2016-11-13 18:29 | CARDIOLOGY CONSULTATION ---
DATE OF CONSULTATION: 11/13/2016 REFERRING PROVIDER: Freya Carbone PA-C REASON FOR CONSULTATION: Preoperative risk stratification. HISTORY OF PRESENT ILLNESS: Ms. Johnson is a 66-year-old female, recently admitted to [facility] in October due to septic arthritis. At that time, the patient developed an episode of atrial fibrillation with rapid ventricular response. She was evaluated by cardiology and initially treated with intravenous diltiazem. She was transitioned to oral metoprolol. During hospitalization, there was no recurrence of her AFib and she was maintained in sinus rhythm with beta jodie. She was prescribed single antiplatelet therapy with aspirin. Anticoagulation was not recommended. Due to MRSA bacteremia, a transesophageal echo was performed by Dr. Pineda. There was no evidence of endocarditis. During the hospitalization, the patient was noted to have bilateral DVTs and IVC filter was placed. She was discharged to [facility] on a prolonged course of IV daptomycin. Over the past few days, she has developed worsening left lower extremity discomfort. She was seen by Dr. Ibarra, who admitted the patient today for an I\T\D of her left knee. The patient currently resting comfortably, lying supine. Denies palpitations, chest discomfort, or unusual shortness of breath. She is a poor historian. No personal history of coronary artery disease, congestive heart failure, rheumatic fever as a child, or peripheral vascular disease. Past medical history is as noted below. Aside from left lower extremity discomfort, she offers no complaints at this time. REVIEW OF SYSTEMS: The pertinent positives noted above. A comprehensive 10-system review is otherwise negative. PAST MEDICAL HISTORY: 1. Paroxysmal atrial fibrillation. 2. Diabetes type 2. 3. Deep venous thrombosis, status post IVC filter placed. 4. GERD. 5. Hypertension. PAST SURGICAL HISTORY: 1. Right below the knee amputation. 2. Left knee antibiotic spacer placement. 3. IVC filter placement. FAMILY HISTORY: Negative for premature CAD or sudden cardiac ; however, noncontributory given the patient's current medical state. SOCIAL HISTORY: Denies any alcohol, tobacco, or recreational drug use. ALLERGIES: RASHAAD INHIBITORS, LIPITOR, ZOCOR, ONGLYZA, VANCOMYCIN AND ZOSYN. CURRENT OUTPATIENT MEDICATIONS: 1. Metoprolol tartrate 25 mg twice daily. 2. Folic acid 1 mg daily. 3. Tramadol 50 mg q. 4 hours as needed. 4. Morphine 2 mg q. 4 hours as needed. 5. Morphine 4 mg q. 4 hours as needed. 6. Sliding scale insulin. 7. Diltiazem. LABORATORY DATA: White blood cell count 15.09, platelet count is 63, and hemoglobin is 9.3. Sodium is 133, potassium 3.8, chloride 95, CO2 is 31, BUN is 9, and creatinine 0.53. CRP 14.7. PHYSICAL EXAMINATION: VITAL SIGNS: Temperature is 36.4 degrees centigrade, pulse 69 beats per minute and regular, respiratory rate is 18 breaths, blood pressure 140/82 and SaO2 is 92% on room air. GENERAL: NAD, chronically ill. HEENT: Mucous membranes are moist. Poor dentition noted. NECK: Supple without JVD or HJR. No carotid bruit. HEART: Regular with a normal S1 and S2. No murmur, rub or gallop. LUNGS: Clear without rales, rhonchi or wheeze. ABDOMEN: Soft and nontender. No rebound or guarding. Normal bowel sounds. EXTREMITIES: Warm and dry with a right-sided BKA. NEUROLOGIC: Demonstrates no focal motor deficit. FINAL IMPRESSION: 1. A 66-year-old female considered at moderate perioperative risk from a cardiovascular perspective. Recommend Cardizem-CD and metoprolol be continued uninterrupted perioperatively. Her preop EKG demonstrates no significant changes. 2. Paroxysmal atrial fibrillation -- currently sinus rhythm with premature atrial contractions per ECG. 3. Diabetes type 2. 4. Hypertension -- controlled. PLAN AND RECOMMENDATIONS: No further cardiac testing is indicated at this time, which would lower the patient's perioperative cardiovascular risk. Recommend beta-jodie and diltiazem be continued uninterrupted perioperatively. Consider a monitored bed with any recurrent tachycardia or irregular rhythm. No medication changes at this time. Thank you for allowing me to take part in the care of your patient. DEB
[2016-11-13] MEDS: INSULIN ASPART 100 UNITS/ML 3 ML PEN SC SCH ×2 (19:12→20:48)
[2016-11-13] MEDS: TRAMADOL HCL 50 MG TAB PO PRN ×2 (19:15→23:43)
[2016-11-13 19:42] LABS: ZZURINE CULT IF INDIC CATH YES
[2016-11-13 21:00] VITALS: BP 177/75; PULSE 69
[2016-11-13] MEDS ORDERED: INSULIN GLARGINE SOLOSTAR 100 UNITS/ML 3 ML PEN SC SCH (21:00)
[2016-11-13] MEDS: DOCUSATE SODIUM 100 MG CAP PO SCH (21:02)
[2016-11-13] MEDS: METOPROLOL TARTRATE 25 MG TAB PO SCH (21:02)
[2016-11-13 23:09] VITALS: BP 160/79; PULSE 75; TEMP 36.4; O2SAT 93
[2016-11-13] MEDS: ACETAMINOPHEN 325 MG TAB PO PRN (23:43)
[2016-11-14] VITALS (43 sets, daily range): BP systolic 73–199; BP diastolic 0–115; PULSE 79–174; TEMP 35.6–36.9; O2SAT 88–100
[2016-11-14] MEDS ORDERED: NURSING VERBAL MED ORDER ONE (01:45)
[2016-11-14] MEDS: SODIUM CHLORIDE 0.9% 1000ML 1,000 ML IV SCH ×3 (02:54→22:38)
[2016-11-14 05:37] LABS: MEAN CELL VOLUME 88.8 fL (80-100); MEAN CORPUSCULAR HEMOGLOBIN 28.9 pg (25-34); MEAN CORPUSCULAR HGB CONC 32.6 g/dl (32-36); MEAN PLATELET VOLUME 8.8 fL (7.4-10.4); PLATELET COUNT 513 K/uL (130-400); RED BLOOD COUNT 3.04 M/uL (4.2-5.4); WHITE BLOOD COUNT 13.71 K/uL (4.8-10.8)
[2016-11-14] MEDS: INSULIN ASPART 100 UNITS/ML 3 ML PEN SC SCH ×2 (06:00→12:00)
[2016-11-14 06:05] LABS: BUN/CREATININE RATIO 16.3 (10-20); CALCIUM 8.4 mg/dl (8.5-10.1); CREATININE 0.43 mg/dl (0.60-1.20); MAGNESIUM 1.9 mg/dl (1.8-2.4); POTASSIUM 3.8 mmol/L (3.5-5.1)
[2016-11-14] MEDS ORDERED: D5W AND NSS 1,000 ML IV SCH (06:15)
[2016-11-14] MEDS ORDERED: DEXAMETHASONE SOD INJ 4 MG/ML VIAL ONE (08:25)
[2016-11-14] MEDS ORDERED: ONDANSETRON INJ 2 MG/ML 2 ML VIAL ONE (08:25)
[2016-11-14] MEDS ORDERED: PROPOFOL IV EMULSION 10 MG/ML 20 ML VIAL IV ONE (08:25)
[2016-11-14] MEDS ORDERED: LIDOCAINE HCL 2% 2 ML VIAL (20MG/ML) ONE (08:25)
[2016-11-14] MEDS ORDERED: FENTANYL CITRATE INJ 50 MCG/1 ML 2 ML VIAL ONE ×4 (08:25→22:07)
[2016-11-14] MEDS ORDERED: MIDAZOLAM HCL 1 MG/ML 2ML VIAL ONE (08:25)
[2016-11-14] MEDS ORDERED: MEPERIDINE HCL 25 MG/ML CARP IV PRN (09:00)
[2016-11-14] MEDS: METOPROLOL TARTRATE 25 MG TAB PO SCH (09:00)
[2016-11-14] MEDS ORDERED: MoRPHine SULFATE 10 MG/ML CARP/VIAL IV PRN (09:00)
[2016-11-14] MEDS ORDERED: EpHEDrine SULFATE INJ 50 MG/ML AMP IV PRN (09:00)
[2016-11-14] MEDS ORDERED: DILTIAZEM HCL 240 MG CAPCR PO SCH (09:00)
[2016-11-14] MEDS ORDERED: ONDANSETRON INJ 2 MG/ML 2 ML VIAL IV PRN (09:00)
[2016-11-14] MEDS: PANTOprazole SOD 40 MG TAB PO SCH (09:00)
[2016-11-14] MEDS: DOCUSATE SODIUM 100 MG CAP PO SCH ×2 (09:00→21:26)
[2016-11-14] MEDS ORDERED: DAPTOmycin 500 MG VIAL IV SCH (09:00)
[2016-11-14] MEDS ORDERED: ATROPINE SULFATE 0.1 MG/ML 5ML SYR IV PRN (09:00)
[2016-11-14] MEDS ORDERED: ARTIFICIAL TEARS OP OINT 3.5 GM TUBE ONE (09:22)
--- NOTE | 2016-11-14 09:22 | Pharmacy Progress Note ---
Glycemic Control: Progress Nt Date of Service Nov 14, 2016. Scope Glycemic Pharmacist consulted by Freya Carbone PA-C on 11/13/16 for glycemic control and to write orders per [facility] inpatient glycemic control protocol. Objective Accuchecks BSG (last 24hrs): Test 11/13/16 14:20 11/13/16 14:43 11/13/16 17:35 11/13/16 20:45 Random Glucose 116 mg/dl (70-99) Bedside Glucose 118 mg/dl (70-90) 108 mg/dl (70-90) 138 mg/dl (70-90) Test 11/14/16 05:30 11/14/16 05:56 11/14/16 08:13 Random Glucose 70 mg/dl (70-99) Bedside Glucose 73 mg/dl (70-90) 97 mg/dl (70-90) Laboratory Data (last 24hrs) Test 11/13/16 14:20 11/14/16 05:30 Anion Gap 7.0 mmol/L 6.0 mmol/L BUN/Creatinine Ratio 16.4 16.3 Blood Urea Nitrogen 9 mg/dl 7 mg/dl Creatinine 0.53 mg/dl 0.43 mg/dl Potassium Level 3.8 mmol/L 3.8 mmol/L Sodium Level 133 mmol/L 137 mmol/L White Blood Count 15.09 K/uL 13.71 K/uL HbA1c: Item Value Date Time Estimated Average Glucose 174 mg/dl 10/20/16 0545 Hemoglobin A1c 7.7 % H 10/20/16 0545 Recent Pertinent Medications Outpatient Anti-diabetic Regimen: * Glipizide ER 10mg qAM, Novolog QID per SS, Lantus 18 units BID * A1c = 7.7 % 10/20/16 Risk Factors for Insulin Resistance: * Infection: Infected total knee replacement * IVF: NS at 75 ml/hr * Recent Surgery: L TKR 10/22/16; To OR this AM for abx spacer * Diet: DM2- currently NPO for procedure Assessment & Plan ASSESSMENT: 11/13/16 * Pt is a 66 yo female readmitted s/p L TKR on 10/22/16. Knee is infected and requires surgical intervention tomorrow by Dr. Ibarra. * The pharmacy glycemic service is somewhat familiar with this patient from her most recent admission. * Will begin an inpatient glycemic regimen based primarily on past admission data. * Will be a priority to keep BSGs controlled in setting of infection and surgery. * Pt is maintained on oral antidiabetic agent - Glipizide ER - as an outpatient * Oral agents are not recommended for inpatient use d/t drug interactions, changing PO intake, and difficulty titrating for acute hyper/hypoglycemia. ADA recommends re-initiating outpatient oral agents 1-2 days prior to discharge if/ when appropriate if they were held on admission. * ADA & AACE recommend a goal blood sugar range 140-180 mg/dl for the majority of critically ill & non-critically ill patients. However, more stringent targets may be selected in individual cases. Will utilize more stringent goal of 110-140mg/dl based on patient age & comorbidities. Additionally, tighter glycemic control is warranted to facilitate wound/infection healing. 11/14/16 * Fasting BSG 73 mg/dL * Patient initiated on dextrose containing fluids this AM and Lantus held due to patient going to OR * She is now hypotensive and transferred to ICU on pressors * Given addition of pressors and ICU status, would not hesitate to initiate insulin drip * MD wants to redraw labs and make that decision in the next hour * If continuing basal/bolus, continue current regimen with additional checks * I anticipate BSGs to climb and will have evening pharmacist make changes if necessary PLAN FOR INPATIENT GLYCEMIC CONTROL: * Insulin drip is the gold standard for management of BSGs in the ICU. Recommend initiating if BSGs remain >200 mg/dL. * Continue to hold glipizide * Lantus 18 units BID, half dose for BSG <110 * Novolog ACHS + 00,04 * Goal range: Low 140 mg/dL - High 180 mg/dL * Correction Factor: 20 mg/dL/unit * Carb ratio: 1 unit per 6g CHO consumed * Please note that the plan above was derived based on current level of insulin resistance and hospital stress. These recommendations are appropriate for inpatient admission only. Plan of care upon discharge will need to be reassessed to avoid potential outpatient hypo/hyperglycemia. Thank you.
[2016-11-14] MEDS ORDERED: POVIDONE-IODINE OP SOLN 30 ML BTL ONE (09:39)
[2016-11-14] MEDS ORDERED: BACITRACIN 50000 UNIT VIAL ONE ×2 (09:39→10:25)
[2016-11-14] MEDS ORDERED: TOBRAMYCIN SULF 40 MG/ML 2 ML VIAL ONE (10:47)
[2016-11-14] MEDS ORDERED: TOBRAMYCIN SULF 1.2 GM VIAL (POWDER) ONE ×2 (10:48)
--- NOTE | 2016-11-14 10:49 | Progress Note ---
Subjective Date of Service: Nov 14, 2016. 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 blood cultures not done yet, urine with gnr but only 5-10 wbc. No gu symptoms noted. afebrile. tolerating abx. wbc 15 yesterday (labs pending at time of initial eval) improved to 13 today. ESR 53. Knee aspirate with 74,459 wbc, 98%N. For spacer today. Objective Vital Signs Date Time Temp Pulse Resp B/P Pulse Ox O2 Delivery O2 Flow Rate FiO2 11/14/16 07:51 36.9 79 20 166/87 91 Room Air 11/14/16 07:35 Room Air 11/13/16 23:30 Room Air 11/13/16 23:09 36.4 75 18 160/79 93 Room Air 11/13/16 21:00 69 177/75 11/13/16 16:05 Room Air 11/13/16 15:18 36.4 69 18 148/82 92 Room Air 11/13/16 13:23 Room Air 11/13/16 13:06 36.7 84 20 170/91 Room Air 11/13/16 12:45 36.7 84 20 170/91 91 Room Air Laboratory Results Item Value Date Time Gram Stain - Final Resulted 11/13/16 0000 Joint Fluid/Space (Synovial) Knee Left Gram Stain - Final Resulted 11/13/16 1350 Joint Fluid/Space (Synovial) Knee Left Urine Culture - Preliminary Resulted 11/13/16 1350 Urine,Catheterized Gram Negative Bacilli Last 24 Hours Test 11/13/16 13:50 11/13/16 14:20 11/13/16 14:43 11/13/16 17:35 Urine Color DK YELLOW Urine Appearance CLEAR Urine pH 8.0 Urine Specific Sherburn 1.018 Urine Protein 1+ Urine Glucose (UA) NEG Urine Ketones NEG Urine Occult Blood 1+ Urine Nitrite NEG Urine Bilirubin NEG Urine Urobilinogen NEG Urine Leukocyte Esterase TRACE Urine WBC (Auto) 5-10 /hpf Urine RBC (Auto) 10-30 /hpf Urine Hyaline Casts (Auto) 1-5 /lpf Urine Epithelial Cells (Auto) 0-5 /lpf Urine Bacteria (Auto) 2+ Urine Renal Epithelial Cells /lpf Urine Yeast (Auto) White Blood Count 15.09 K/uL Red Blood Count 3.20 M/uL Hemoglobin 9.3 g/dL Hematocrit 28.1 % Mean Corpuscular Volume 87.8 fL Mean Corpuscular Hemoglobin 29.1 pg Mean Corpuscular Hemoglobin Concent 33.1 g/dl RDW Standard Deviation 48.2 fL RDW Coefficient of Variation 15.0 % Platelet Count 623 K/uL Mean Platelet Volume 8.9 fL Erythrocyte Sedimentation Rate 53 mm/hr Prothrombin Time 12.3 SECONDS Prothromb Time International Ratio 1.1 Sodium Level 133 mmol/L Potassium Level 3.8 mmol/L Chloride Level 95 mmol/L Carbon Dioxide Level 31 mmol/L Anion Gap 7.0 mmol/L Blood Urea Nitrogen 9 mg/dl Creatinine 0.53 mg/dl Est Creatinine Clear Calc Drug Dose 120.7 ml/min Estimated GFR () 113.9 Estimated GFR (Non- 98.2 BUN/Creatinine Ratio 16.4 Random Glucose 116 mg/dl Calcium Level 8.4 mg/dl C-Reactive Protein 14.70 mg/dl Bedside Glucose 118 mg/dl 108 mg/dl Test 11/13/16 20:45 11/14/16 05:30 11/14/16 05:56 11/14/16 08:13 Bedside Glucose 138 mg/dl 73 mg/dl 97 mg/dl White Blood Count 13.71 K/uL Red Blood Count 3.04 M/uL Hemoglobin 8.8 g/dL Hematocrit 27.0 % Mean Corpuscular Volume 88.8 fL Mean Corpuscular Hemoglobin 28.9 pg Mean Corpuscular Hemoglobin Concent 32.6 g/dl RDW Standard Deviation 49.4 fL RDW Coefficient of Variation 15.2 % Platelet Count 513 K/uL Mean Platelet Volume 8.8 fL Sodium Level 137 mmol/L Potassium Level 3.8 mmol/L Chloride Level 100 mmol/L Carbon Dioxide Level 31 mmol/L Anion Gap 6.0 mmol/L Blood Urea Nitrogen 7 mg/dl Creatinine 0.43 mg/dl Est Creatinine Clear Calc Drug Dose 148.7 ml/min Estimated GFR () 122.0 Estimated GFR (Non- 105.2 BUN/Creatinine Ratio 16.3 Random Glucose 70 mg/dl Calcium Level 8.4 mg/dl Magnesium Level 1.9 mg/dl Assessment and Plan (1) Infection of total left knee replacement Assessment & Plan: continue dapto, await sensitivities. will check blood cultures. Unclear significance of + urine culture, suspect colonization. no symptoms, wbc improving on no gnr therapy. would focus treatment on infected joint, if symptoms uti would suggest repeat ua/culture. Await OR findings. (2) Leukocytosis Assessment & Plan: improving.
[2016-11-14] MEDS ORDERED: EpHEDrine SULFATE 50MG/5ML SYR ONE (11:00)
--- NOTE | 2016-11-14 11:23 | [facility] Post Operative Brief Note ---
Immediate Operative Summary Operative Date Nov 14, 2016. Pre-Operative Diagnosis infected TKA left knee Post-Operative Diagnosis same Procedure(s) Performed removal implants with insertion antibiotic spacer Surgeon Fred Metal Turner Surgeon(s) Do Estimated Blood Loss 80cc Findings infected TKA with purulence elsa in knee Specimens intraop gram stain Frozen section greater than 15 at femoral component 5 at tibial interface Complication(s) None Disposition Recovery Room / PACU
[2016-11-14] MEDS ORDERED: BISACODYL 10 MG SUPP PR PRN (11:45)
[2016-11-14] MEDS ORDERED: DiphenhydrAMINE HCL 50 MG/ML VIAL IV PRN (11:45)
[2016-11-14] MEDS ORDERED: ALUMINUM/MAGNESIUM/SIMETH (MAALOX MAX) 30 ML UDC PO PRN (11:45)
[2016-11-14] MEDS ORDERED: VASOPRESSIN 20 UNIT/ML VIAL ONE (11:49)
[2016-11-14] MEDS: FENTANYL CITRATE INJ 50 MCG/1 ML 2 ML VIAL IV PRN ×2 (12:25→12:37)
[2016-11-14] MEDS: FERROUS GLUCONATE 324 MG TAB PO SCH ×2 (12:30→16:30)
[2016-11-14] MEDS ORDERED: PHENYLEPHRINE 100MCG/ML 5ML SYR ONE (13:01)
--- NOTE | 2016-11-14 13:14 | DIAGNOSTIC IMAGING REPORT ---
CHEST ONE VIEW PORTABLE CLINICAL HISTORY: Hypotension. Respiratory distress COMPARISON STUDY: 11/13/2016 FINDINGS: The right-sided PICC catheter remains unchanged in position. There are relatively low lung volumes. There is no lobar consolidation. There is no overt failure. No pleural effusions are visualized.[ IMPRESSION: Poor inspiration with mild hypoventilatory changes at the lung bases. Electronically signed by: Ramírez Beckford M.D. 11/14/2016 1:12 PM Dictated Date/Time: 11/14/2016 1:11 PM
--- NOTE | 2016-11-14 13:43 | Clinical Documentation Query ---
CLINICAL DOCUMENTATION QUERY Dr. VERGARA, In your clinical opinion is this patient being managed for: ( X ) Urinary tract infection ( ) Other explanation of clinical findings (Please Explain) ( ) Unable to determine (Please Define) ( ) Need to Discuss ( ) Not Agree The medical record reflects the following clinical findings, treatment, and risk factors. Clinical Indicators: UA with LE trace, WBC 5-10 and 2+ bacteria, UA cx preliminary showing gram negative bacilli. Treatment: IV fluids, final culture pending for sensitivities/antibiotic selection Risk Factors: gender, DM, Please clarify and document your clinical opinion in the progress notes and discharge summary. Terms such as "probable", "suspected", "likely", "questionable", "possible", or "still to be ruled out" are acceptable. IF IN AGREEMENT, YOU MUST DOCUMENT ABOVE DIAGNOSTIC STATEMENT IN DAILY PROGRESS NOTES AND DISCHARGE SUMMARY. This document is not part of the patient's record. Thank You, Josselyn Grijalva RN [phone]
--- NOTE | 2016-11-14 13:51 | Procedure Note ---
Procedure Note Procedure Date Nov 14, 2016. Procedure Description Procedure Name: R Radial [place] Procedure time out: side/site verified, patient ID confirmed, correct procedure Consent obtained: emergent consent implied Performed by: attending Indications: diagnostic, therapeutic Description: SPD 20G radial [place] under US guidance. Adequate flow/return/trace. Secured. Complications: none Patient tolerated procedure: well
--- NOTE | 2016-11-14 13:56 | Anesthesiology Progress Note ---
Anesthesia Progress Note Date of Service Nov 14, 2016. Progress Notes Called to bedside re:hypotn/tachy. Arrived at bedside. Pt awake and conversive. No complaints of CP/SOB. Pt placed in Tbird position. Pt with 3L LR infused thus far and bolus phenylephrine in PACU. Did have moderate issue with hypotn in OR tx with phenylephrine. Despite IVF/additional bolus phenyl, still difficulty maintaining BP. R radial Laura initiated and BP correlating with dynamap BP. CBC/PRP/trop/lactate drawn and sent stat. 12lead EKG showing ST w/o ST changes or strain. CXR showing R PICC in place w/o PTX/ CHF. Spoke with manager laboratory team who presented to pacu for bedside evaluation. Consideration of SIRS vs PE vs emboli. Awaiting stat labs. To be transferred to ICU for further care. Will speak with ortho team. In attempts to update family, pt states there is no one to update. ICU team to attempt to eval.
[2016-11-14 14:00] LABS: BLOOD UREA NITROGEN 8 mg/dl (7-18); BUN/CREATININE RATIO 8.7 (10-20); CALCIUM 7.8 mg/dl (8.5-10.1); CARBON DIOXIDE 14 mmol/L (21-32); CHLORIDE 102 mmol/L (98-107); CREATININE 0.87 mg/dl (0.60-1.20); GLUCOSE 257 mg/dl (70-99); POTASSIUM 5.1 mmol/L (3.5-5.1); SODIUM 135 mmol/L (136-145)
[2016-11-14 14:13] LABS: HEMATOCRIT 20.2 % (37-47); MEAN CORPUSCULAR HEMOGLOBIN 29.7 pg (25-34); MEAN CORPUSCULAR HGB CONC 32.7 g/dl (32-36); PLATELET COUNT 575 K/uL (130-400); RED BLOOD COUNT 2.22 M/uL (4.2-5.4); WHITE BLOOD COUNT 30.15 K/uL (4.8-10.8)
[2016-11-14] MEDS ORDERED: NOREPINEPHRINE BIT INJ 8 MG in DEXTROSE 5% 500ML 500 ML IV PRN (14:14)
[2016-11-14] MEDS ORDERED: PHENYLEPHRINE HCL INJ 20 MG in DEXTROSE 5% 500ML 500 ML IV PRN (14:15)
[2016-11-14] MEDS: DAPTOmycin IV 600 MG in SODIUM CHLORIDE 0.9% 50ML 50 ML IV SCH (14:39)
--- NOTE | 2016-11-14 14:47 | Anesthesiology Progress Note ---
Anesthesia Post Op Note Date & Time Nov 14, 2016 at 14:46 Vital Signs Pain Intensity: 8 Vital Signs Past 12 Hours Date Time Temp Pulse Resp B/P Pulse Ox O2 Delivery O2 Flow Rate FiO2 11/14/16 13:50 103 28 11/14/16 13:50 103 28 100 11/14/16 13:45 102 31 11/14/16 13:45 104/53 11/14/16 13:45 103 31 11/14/16 13:40 105 14 79 11/14/16 13:40 108 14 11/14/16 13:35 106 25 11/14/16 13:35 106 25 100 11/14/16 13:35 98/43 11/14/16 13:30 107 28 11/14/16 13:30 107 28 98 11/14/16 13:25 110 18 11/14/16 13:25 89/43 11/14/16 13:25 109 18 100 11/14/16 13:20 109 16 100 11/14/16 13:20 110 16 11/14/16 13:19 87/46 11/14/16 13:17 101/90 11/14/16 13:15 107 20 100 11/14/16 13:15 105 20 11/14/16 13:14 85/77 11/14/16 13:12 97/75 11/14/16 13:11 94/63 11/14/16 13:10 107 18 100 11/14/16 13:10 106 18 11/14/16 13:09 70/50 11/14/16 13:06 82/54 11/14/16 13:05 109 28 11/14/16 13:05 107 28 100 11/14/16 13:00 107 25 11/14/16 13:00 107 25 100 11/14/16 12:59 82/56 11/14/16 12:57 108 17 95 11/14/16 12:57 112 17 11/14/16 12:53 63/47 11/14/16 12:52 106 20 11/14/16 12:52 107 20 99 11/14/16 12:50 75/59 11/14/16 12:47 110 20 11/14/16 12:47 109 20 100 11/14/16 12:45 76/45 11/14/16 12:42 116 13 11/14/16 12:42 114 13 99 11/14/16 12:37 110 14 11/14/16 12:37 112 14 64/50 98 11/14/16 12:35 67/46 11/14/16 12:32 114 14 11/14/16 12:32 113 14 99 11/14/16 12:30 95/39 11/14/16 12:27 116 20 11/14/16 12:27 117 20 97 11/14/16 12:22 118 18 99 11/14/16 12:22 111 18 11/14/16 12:17 114 12 11/14/16 12:17 113 12 94/82 100 11/14/16 12:12 109 17 11/14/16 12:12 36.8 105 16 92/48 96 Mask 10 11/14/16 12:12 109 17 92/48 100 11/14/16 07:51 36.9 79 20 166/87 91 Room Air 11/14/16 07:35 Room Air Notes Mental Status: alert / awake / arousable, participated in evaluation Pt Amnestic to Procedure: Yes Nausea / Vomiting: adequately controlled Pain: adequately controlled Airway Patency, RR, SpO2: stable & adequate BP & HR: stable & adequate Hydration State: stable & adequate Anesthetic Complications: no major complications apparent see progress note. ICU team currently placing central line
[2016-11-14] MEDS ORDERED: SODIUM CHLORIDE 0.9% 1000ML 1,000 ML IV SCH ×2 (15:15→23:15)
--- NOTE | 2016-11-14 15:24 | DIAGNOSTIC IMAGING REPORT ---
CHEST ONE VIEW PORTABLE CLINICAL HISTORY: Evaluate right central line placement COMPARISON STUDY: 11/14/2016 FINDINGS: The right-sided PICC catheter remains unchanged in position. There have been interval insertion of a right internal jugular central venous catheter. The tip projects over the superior vena cava. There is no pneumothorax. There are low lung volumes. There is no focal pulmonary consolidation. There is no overt failure.[ IMPRESSION: No evidence of pneumothorax status post insertion of a right internal jugular central venous catheter. Electronically signed by: Ramírez Beckford M.D. 11/14/2016 3:22 PM Dictated Date/Time: 11/14/2016 3:21 PM
--- NOTE | 2016-11-14 15:29 | DIAGNOSTIC IMAGING REPORT ---
LEFT KNEE 1 OR 2 VIEWS ROUTINE CLINICAL HISTORY: AP/LATERAL IN PACU LEFT KNEE pain COMPARISON: None. DISCUSSION: Anatomic alignment status post total left knee replacement. Surgical drains are in position. Expected operative soft tissue change. IMPRESSION: Total left knee replacement aligned anatomically Electronically signed by: Anam Crenshaw M.D. 11/14/2016 3:27 PM Dictated Date/Time: 11/14/2016 3:26 PM
[2016-11-14 15:39] LABS: ISTAT ARTERIAL BLOOD GAS HCO3 10 meq/L (19-24); ISTAT ARTERIAL BLOOD GAS PCO2 20 mmHg (35-46); ISTAT ARTERIAL BLOOD GAS PO2 156 mmHg (80-95); ISTAT ARTERIAL BLOOD GAS pH 7.29 (7.35-7.45); ISTAT CARBON DIOXIDE 11 mEq/l (24-31); ISTAT DELIVERY SYSTEM SimpleMask; ISTAT SITE Art Line
[2016-11-14] MEDS ORDERED: INSULIN ASPART 100 UNITS/ML 3 ML PEN SC SCH ×2 (16:00→21:00)
[2016-11-14 16:01] LABS: MAGNESIUM 1.8 mg/dl (1.8-2.4); PHOSPHORUS 6.9 mg/dl (2.5-4.9)
[2016-11-14] MEDS: ONDANSETRON INJ 2 MG/ML 2 ML VIAL IV PRN (16:03)
[2016-11-14] MEDS: MoRPHine SULFATE 4 MG/ML 1 ML CARP\\VIAL IV PRN ×2 (16:05→19:48)
--- NOTE | 2016-11-14 16:21 | Procedure Note ---
Procedure Note Procedure Date Nov 14, 2016. (Brandi Heredia MD) Central Line Procedure time out: side/site verified, patient ID confirmed, sterile procedure used Time of procedure: 13:30 Performed by: resident Indications: poor venous access Prep: chlorhexadine prep, sterile drape, sterile procedures used Anesthesia: lidocaine 1% without epi Volume anesthetic (ml's): 5 Central line lumen: triple Central line location: internal jugular (R) Additional details: ultrasound guidance, Selinger technique used, line sutured , good blood return CXR: appropriate position, no pneumothorax Complications: none Patient tolerated procedure: well Post-procedure vital signs: reviewed and stable Comments: Central Venous Catheter Indication: Venous access Catheter type: Triple-lumen Location: Right IJ Verbal consent was obtained after the risks and benefits were explained, including but not limited to pneumothorax, hemothorax, vessel injury, bleeding, scarring, infection, pain, and bone/joint/nerve damage. At this time, the risks of the procedure are less than the risks of NOT performing the procedure. A time out was taken and the correct patient and site identified. The patient was placed in the supine/Trendelenburg position and the skin was prepped in the standard fashion with chlorhexidine and full sterile drapes applied. The proper landmarks were identified with ultrasound, anesthetized with 1% lidocaine without epinephrine, and the needle was inserted through the skin in the standard fashion. The needle was carefully advanced into blood vessel lumen under ultrasound guidance. The guidewire was placed uneventfully. The vessel is dilated and the catheter was placed. It was sutured into position. There was good blood return from all ports. The patient tolerated the procedure well and there were no complications. Post procedure x-ray was normal. (Brandi Heredia MD) Comments: Resident Physician Supervision Note: I was present with Dr. Brandi Heredia during the entire procedure The guidewire was removed intact CXR shows central line in good position, no pneumothorax Documented By: Angel Quiroz MD (Angel Quiroz ., )
[2016-11-14] MEDS ORDERED: CALCIUM CHLORIDE 10% 10 ML SYR IV STA ×2 (16:38→18:57)
[2016-11-14] MEDS ORDERED: INSULIN GLARGINE SOLOSTAR 100 UNITS/ML 3 ML PEN SC SCH (17:00)
[2016-11-14] MEDS ORDERED: CALCIUM CHLORIDE 10% 1,000 MG in SODIUM CHLORIDE 0.9% 50ML 50 ML IV SCH ×2 (17:15→19:30)
--- NOTE | 2016-11-14 17:17 | Critical Care Consultation ---
Critical Care Consultation Date of Consultation: Nov 14, 2016. Attending Physician: Caesar Ibarra D.O. 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 She had a prolonged hospital course with sepsis secondary to MRSA bacteremia, right foot necrosis requiring below-knee amputation and bilateral DVT with IVC filter placement . She was discharged to [facility] on IV daptomycin via her PICC line. She presented to orthopedic office with increasing pain and drainage from the left knee. She was taken to the OR today after left knee aspiration was concerning for septic arthritis. While in the PACU she became hypotensive and tachycardic, she was given 3 L of LR with phenylephrine but her pressure continued to be low . An arterial line was placed in ICU was consulted. She has also been hypotensive in the OR but had responded to phenylephrine. She complained of difficulty breathing and was placed on a mask. He denied any chest pains or palpitations but continued to complain of pain and numbness along her left knee . 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, IVC filter placement , septic arthritis Family History No pertinent family history Social History Smoking Status: Never Smoker Alcohol Use: none Drug Use: none Allergies Coded Allergies: RASHAAD Inhibitors (Verified Allergy, Unknown, RASH, 10/19/16) unknown reaction Atorvastatin (Verified Allergy, Unknown, rash, 10/19/16) unknown reaction Ertapenem (Verified Allergy, Unknown, rash, 10/19/16) unknown reaction Piperacillin (Verified Allergy, Unknown, rash, 10/19/16) Saxagliptin (Verified Allergy, Unknown, rash, 10/19/16) unknown reaction Simvastatin (Verified Allergy, Unknown, rash, 10/19/16) unknown reaction Tazobactam (Verified Allergy, Unknown, rash, 10/19/16) Vancomycin (Verified Allergy, Unknown, rash, 10/19/16) Home Medications Scheduled Cholecalciferol (Vitamin D3), PO DAILY Daptomycin (Cubicin), 600 MG IV DAILY Diltiazem Hcl Coated Beads (Cardizem Cd), 1 CAP PO DAILY Docusate Sodium (Colace), 1 CAP PO BID Enoxaparin (Enoxaparin Sodium), 40 MG SQ QAM Folic Acid (Folvite), 1 TAB PO DAILY Glipizide Xl (Glucotrol Xl), 10 MG PO QAM Insulin Aspart (Novolog), SQ QID Insulin Glargine (Lantus), 18 SC BID Metoprolol Tartrate (Lopressor), 25 MG PO BID Scheduled PRN Acetaminophen (Tylenol), 650 MG PO Q4H PRN for fever/pain Ondansetron Odt (Zofran Odt), 4 MG SL Q4H PRN for Nausea Tramadol HCl (Tramadol HCl), 50-100 MG PO Q4H PRN for Pain Miscellaneous Medications Famotidine (Pepcid), 20 MG PO Current Inpatient Medications Current Inpatient Medications Medications (Trade) Dose Ordered Sig/Denisse Route Start Time Stop Time Status Last Admin Dose Admin Pantoprazole Sodium (Protonix Tab) 40 mg QAM PO 11/14/16 09:00 12/14/16 08:59 Acetaminophen (Tylenol Tab) 650 mg Q4H PRN PO 11/13/16 13:00 12/13/16 12:59 11/13/16 23:43 650 MG Docusate Sodium (coLACE CAP) 100 mg BID PO 11/13/16 21:00 12/13/16 20:59 11/13/16 21:02 100 MG Folic Acid (Folvite Tab) 1 mg DAILY PO 11/14/16 09:00 12/14/16 08:59 Tramadol HCl (Ultram Tab) 50 mg Q4H PRN PO 11/13/16 13:00 12/13/16 12:59 11/13/16 23:43 50 MG Morphine Sulfate (MoRPHine SULFATE INJ) 2 mg Q4H PRN IV 11/13/16 13:30 11/27/16 13:29 Morphine Sulfate (MoRPHine SULFATE INJ) 4 mg Q4H PRN IV 11/13/16 13:30 11/27/16 13:29 11/14/16 16:05 4 MG Morphine Sulfate 6 mg 6 mg Q4H PRN IV 11/13/16 13:30 11/27/16 13:29 Daptomycin/Sodium Chloride (Cubicin IV/Nss 50ml) 62 ml @ 120 mls/hr Q24H IV 11/13/16 14:00 12/25/16 13:59 11/14/16 14:39 120 MLS/HR Glucose (Glucose 40% Gel) 15-30 GRAMS 15 GRAMS... UD PRN PO 11/13/16 14:30 12/13/16 14:29 Glucose (Glucose Chew Tab) 4-8 Tablets 4 Tabl... UD PRN PO 11/13/16 14:30 12/13/16 14:29 Dextrose (Dextrose 50% 50ML Syringe) 25-50ML OF 50% DW IV FOR... UD PRN IV 11/13/16 14:30 12/13/16 14:29 Glucagon (Glucagon Inj) 1 mg UD PRN SQ 11/13/16 14:30 12/13/16 14:29 Miscellaneous Information (Consult Glycemic Management Pharmacy) 1 ea UD PRN N/A 11/13/16 14:30 12/13/16 14:29 Oxycodone HCl (Roxicodone Immediate Rel Tab) 1 TABLET FOR PAIN RATING... Q4H PRN PO 11/14/16 11:45 11/28/16 11:44 Magnesium Hydroxide (Milk Of Magnesia Susp) 30 ml Q6H PRN PO 11/14/16 11:45 12/14/16 11:44 Bisacodyl (Dulcolax Supp) 10 mg DAILY PRN W[place] 11/14/16 11:45 12/14/16 11:44 Senna (Senokot Tab) 17.2 mg HS PO 11/14/16 21:00 12/14/16 20:59 Diphenhydramine HCl (Benadryl Inj) 25 mg Q8H PRN IV 11/14/16 11:45 12/14/16 11:44 Al Hydrox/Mg Hydrox/Simethicone (Maalox Max Susp) 15 ml Q4H PRN PO 11/14/16 11:45 12/14/16 11:44 Multivitamins (Multivitamin Tab) 1 tab QAM PO 11/15/16 09:00 12/15/16 08:59 Ondansetron HCl (Zofran Inj) 4 mg Q6H PRN IV 11/14/16 11:45 12/14/16 11:44 11/14/16 16:03 4 MG Ferrous Gluconate (Ferrous Gluconate Tab) 324 mg TIDM PO 11/14/16 12:30 12/14/16 12:29 Aspirin 81 mg 81 mg BID PO 11/14/16 21:00 12/14/16 20:59 Phenylephrine HCl 20 mg/Dextrose 502 ml @ 0 mls/hr Q0M PRN IV 11/14/16 14:15 12/14/16 14:14 Norepinephrine Bitartrate 8 mg/ Dextrose 508 ml @ 0 mls/hr Q0M PRN IV 11/14/16 14:14 12/14/16 14:13 11/14/16 14:39 37.5 MLS/HR Sodium Chloride (Nss 1000ml) 1,000 ml @ 125 mls/hr Q8H IV 11/14/16 15:15 12/14/16 15:14 11/14/16 16:07 125 MLS/HR Insulin Glargine (Lantus Solostar Pen) see protocol text BID SC 11/14/16 17:00 12/14/16 16:59 Insulin Aspart SLIDING SCALE If C... ACHS SC 11/14/16 16:00 12/14/16 15:59 UNV Aztreonam/Dextrose (Azactam IV/D5 100ml) 110 ml @ 100 mls/hr Q8H IV 11/14/16 15:45 11/24/16 15:44 UNV Review of Systems Constitutional: No chills, No fever Eyes: No worsening of vision ENT: No hearing loss Respiratory: + dyspnea at rest, + shortness of breath, No cough Cardiovascular: No chest pain Abdomen: No nausea, No pain, No vomiting Musculoskeletal: + joint pain (left knee) Genitourinary - Female: No dysuria Neurologic: No memory loss Psychiatric: No depression symptoms Physical Exam Date Time Temp Pulse Resp B/P Pulse Ox O2 Delivery O2 Flow Rate FiO2 11/14/16 15:45 36.4 11/14/16 15:44 106 20 126/50 100 10.0 11/14/16 15:30 35.7 104 28 119/55 100 11/14/16 15:15 35.6 108 22 113/62 100 11/14/16 13:50 103 28 11/14/16 13:50 103 28 100 11/14/16 13:45 102 31 11/14/16 13:45 104/53 11/14/16 13:45 103 31 11/14/16 13:40 105 14 79 11/14/16 13:40 108 14 11/14/16 13:35 106 25 11/14/16 13:35 106 25 100 11/14/16 13:35 98/43 11/14/16 13:30 107 28 11/14/16 13:30 107 28 98 11/14/16 13:25 110 18 11/14/16 13:25 89/43 11/14/16 13:25 109 18 100 11/14/16 13:20 109 16 100 11/14/16 13:20 110 16 11/14/16 13:19 87/46 11/14/16 13:17 101/90 11/14/16 13:15 107 20 100 11/14/16 13:15 105 20 11/14/16 13:14 85/77 11/14/16 13:12 97/75 11/14/16 13:11 94/63 11/14/16 13:10 107 18 100 11/14/16 13:10 106 18 11/14/16 13:09 70/50 11/14/16 13:06 82/54 11/14/16 13:05 109 28 11/14/16 13:05 107 28 100 11/14/16 13:00 107 25 11/14/16 13:00 107 25 100 11/14/16 12:59 82/56 11/14/16 12:57 108 17 95 11/14/16 12:57 112 17 11/14/16 12:53 63/47 11/14/16 12:52 106 20 11/14/16 12:52 107 20 99 11/14/16 12:50 75/59 11/14/16 12:47 110 20 11/14/16 12:47 109 20 100 11/14/16 12:45 76/45 11/14/16 12:42 116 13 11/14/16 12:42 114 13 99 11/14/16 12:37 110 14 11/14/16 12:37 112 14 64/50 98 11/14/16 12:35 67/46 11/14/16 12:32 114 14 11/14/16 12:32 113 14 99 11/14/16 12:30 95/39 11/14/16 12:27 116 20 11/14/16 12:27 117 20 97 11/14/16 12:22 118 18 99 11/14/16 12:22 111 18 11/14/16 12:17 114 12 11/14/16 12:17 113 12 94/82 100 11/14/16 12:12 109 17 11/14/16 12:12 36.8 105 16 92/48 96 Mask 10 11/14/16 12:12 109 17 92/48 100 11/14/16 07:51 36.9 79 20 166/87 91 Room Air 11/14/16 07:35 Room Air 11/13/16 23:30 Room Air 11/13/16 23:09 36.4 75 18 160/79 93 Room Air 11/13/16 21:00 69 177/75 General Appearance: mild distress Head: normocephalic (in) Eyes: EOMI Neck: normal range of motion, trachea midline Respiratory: breath sounds normal, clear to auscultation, no respiratory distress Cardiovasular: normal S1S2 (tachycardia), other Abdomen: non tender, normal bowel sounds Lower Extremities: other (right below knee amputation, left knee status post surgery) Neuro: alert, oriented x 3 Laboratory Results Last 24 Hours Test 11/13/16 17:35 11/13/16 20:45 11/14/16 05:30 11/14/16 05:56 Bedside Glucose 108 mg/dl 138 mg/dl 73 mg/dl White Blood Count 13.71 K/uL Red Blood Count 3.04 M/uL Hemoglobin 8.8 g/dL Hematocrit 27.0 % Mean Corpuscular Volume 88.8 fL Mean Corpuscular Hemoglobin 28.9 pg Mean Corpuscular Hemoglobin Concent 32.6 g/dl RDW Standard Deviation 49.4 fL RDW Coefficient of Variation 15.2 % Platelet Count 513 K/uL Mean Platelet Volume 8.8 fL Sodium Level 137 mmol/L Potassium Level 3.8 mmol/L Chloride Level 100 mmol/L Carbon Dioxide Level 31 mmol/L Anion Gap 6.0 mmol/L Blood Urea Nitrogen 7 mg/dl Creatinine 0.43 mg/dl Est Creatinine Clear Calc Drug Dose 148.7 ml/min Estimated GFR () 122.0 Estimated GFR (Non- 105.2 BUN/Creatinine Ratio 16.3 Random Glucose 70 mg/dl Calcium Level 8.4 mg/dl Magnesium Level 1.9 mg/dl Test 11/14/16 08:13 11/14/16 12:27 11/14/16 13:21 11/14/16 15:08 Bedside Glucose 97 mg/dl 277 mg/dl White Blood Count 30.15 K/uL Red Blood Count 2.22 M/uL Hemoglobin 6.6 g/dL Hematocrit 20.2 % Mean Corpuscular Volume 91.0 fL Mean Corpuscular Hemoglobin 29.7 pg Mean Corpuscular Hemoglobin Concent 32.7 g/dl RDW Standard Deviation 52.3 fL RDW Coefficient of Variation 15.5 % Platelet Count 575 K/uL Mean Platelet Volume 9.0 fL Sodium Level 135 mmol/L Potassium Level 5.1 mmol/L Chloride Level 102 mmol/L Carbon Dioxide Level 14 mmol/L Anion Gap 19.0 mmol/L Blood Urea Nitrogen 8 mg/dl Creatinine 0.87 mg/dl Est Creatinine Clear Calc Drug Dose 73.5 ml/min Estimated GFR () 79.9 Estimated GFR (Non- 68.9 BUN/Creatinine Ratio 8.7 Random Glucose 257 mg/dl Calcium Level 7.8 mg/dl Troponin I < 0.015 ng/ml Test 11/14/16 15:25 11/14/16 15:30 Blood Gas Sample Site Art Line Bedside Blood Gas pH (LAB) 7.29 Bedside Blood Gas pCO2 (LAB) 20 mmHg Bedside Blood Gas pO2 (LAB) 156 mmHg Bedside Blood Gas HCO3 (LAB) 10 meq/L Bedside Blood Gas Total CO2 11 mEq/l Bedside Blood Gas Base Excess (LAB) -17.0 meq/L Bedside Blood Gas O2 Saturation 99.0 % All Test NA Oxygen Delivery Device SimpleMask Lactic Acid Level 14.0 mmol/L Ionized Calcium 1.01 mmol/l Phosphorus Level 6.9 mg/dl Magnesium Level 1.8 mg/dl Total Bilirubin 0.5 mg/dl Direct Bilirubin 0.2 mg/dl Aspartate Amino Transf (AST/SGOT) 73 U/L Alanine Aminotransferase (ALT/SGPT) 12 U/L Alkaline Phosphatase 97 U/L Total Protein 5.4 gm/dl Albumin 1.2 gm/dl Diagnostic Results CHEST ONE VIEW PORTABLE CLINICAL HISTORY: Hypotension. Respiratory distress COMPARISON STUDY: 11/13/2016 FINDINGS: The right-sided PICC catheter remains unchanged in position. There are relatively low lung volumes. There is no lobar consolidation. There is no overt failure. No pleural effusions are visualized.[ IMPRESSION: Poor inspiration with mild hypoventilatory changes at the lung bases. 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 While in the PACU she became hypotensive and tachycardic, she was given 3 L of LR with phenylephrine but her pressure continued to be low . An arterial line was placed in ICU was consulted. She has also been hypotensive in the OR but had responded to phenylephrine. right IJ triple-lumen placed Neuro: - Pain control with morphine CVS: Hypotension likely secondary to sepsis/septic shock - Received 3 L lactated Ringer's with phenylephrine in the PACU - Status post 1 unit blood transfusion with 1 L NSS bolus - Levophed drip - Echo ordered Atrial fibrillation: - Cardizem on hold -Metoprolol on hold Heme -Acute blood loss anemia: Hemoglobin at 6.6, from 8.8 on admission - estimated blood loss from surgery 80 cc - Status post one unit PRBC transfusion , currently transfusing second unit - Monitor H&H Leukocytosis: Secondary to infection - WBC 30.45 - Lactic acid 14, trend lactic acid ID: Left knee TKA septic arthritis - Status post removal of implants with insertion antibiotic spacer - Gram stain from left knee- gram-positive cocci/ staph on Gram stain - History of MRSA - Continue daptomycin, Zosyn added - Blood culture pending - ID consult GI/FEN: - Protonix IV Renal: Metabolic acidosis sec to increased lactate - PH 7.29, PCO2 20 , HC03 10 Anion gap 19 - Continue IV fluids - Electrolytes: Calcium at 7.8, ionized calcium 1.01 1 g calcium chloride added Phos at 6.9 UTI: - Urine culture positive for gram-negative bacilli Endo: DM - ISS MSK: Left knee TKA septic arthritis status post implant removal with insertion of spacer - Management per ortho DVT prophylaxis: SCDs Full code Disposition: In ICU, monitor H&H and blood pressure Resident Physician Supervision Note: I was present with Dr. Brandi Heredia during the history and exam. I discussed the case with the resident and agree with the findings and plan as documented in the note. Any exceptions or clarifications are listed here: Hypotensive post knee surgery, started intra-op. Likely massive SIRS, septic shock from knee manipulation. Also with acute drop in H/H, which is unusual since she did not lose much blood intraop, 200ml. Possible dilutional component as well, received 2 liters prior to blood chandni. TLC inserted in ICU, BP improved with blood administration (received 2 units), still onLevophed though. Echo could not visualize well the RV, but the LV is hyperdynamic. Add Azactam for GNR UTI. Has extensive allergy history Continue Daptomycin Lactate is 14. Continue IV fluids, trend lactate every 3 hours. Follow labs every 6 hours (CBC, CMP, Mg, Phos, calcium). Supplement calcium Q 4 hour glucose, Aspart sliding scale. Consider insulin drip if persistently elevated I seriously doubt pulmonary embolism, has no hypoxia, EKG essentially unchanged. Critical care time spent excluding procedures greater than 40 minutes Documented By: Angel Quiroz
[2016-11-14] MEDS: AZTREONAM IV 1,000 MG in DEXTROSE 5% 100ML 100 ML IV SCH (17:28)
--- NOTE | 2016-11-14 17:31 | ECHOCARDIOGRAM REPORT ---
*NOTICE TO RECEIVING DEMOCRAT AGENCY This information is strictly Confidential and protected under [place] law. [place] law prohibits you from making any further disclosure of this information unless further disclosure is expressly permitted by the written consent of the person to whom it pertains or is authorized by law. A general authorization for the release of medical or other information is not sufficient for this purpose. Hospital accepts no responsibility if the information is made available to any other person, INCLUDING THE PATIENT. Interpretation Summary * Name: RICA RETANA Study Date: 11/14/2016 03:20 PM BP: 131/57 mmHg * Patient Location: .MSICU\S\E111\S\1 HR: 100 * : 1950 (M/d/yyyy) Gender: Female Height: 65 in * Age: 66 yrs Ethnicity: CA Weight: 220 lb * Ordering Physician: Angel Quiroz * Referring Physician: Caesar Ibarra D.O. * Performed By: Ifrah Muniz RDCS * * Reason For Study: LTD SHOCK, FUNCTION * BSA: 2.1 m2 * History: SHOCK, LTD ECHO * The study was technically adequate. * Compared to prior study, changes are noted. * -- Conclusions -- * The left ventricle is hyperdynamic. * Ejection Fraction = >70 %. * There is mild concentric left ventricular hypertrophy. * The right ventricle is normal size. * The right ventricle is hyperdynamic. * There is no pericardial effusion. * Normal inferior vena cava diameter and respiratory variation suggests normal central venous pressure. Procedure Details * A contrast injection of Definity was performed to improve assessment of LV function. * Contrast was injected into an intravenous site in the central line. * One vial of Definity ultrasound contrast was diluted in normal saline to a total volume of 10 ml. A total of '2' ml of solution was administered during imaging. * Lot # [id number] of Definity utilized for procedure. * Expiration date NOV 25. * The attending nurse who injected the contrast agent was NICOLÁS WEBER. * A complete two-dimensional transthoracic echocardiogram was performed (2D, M-mode, Doppler and color flow Doppler). Left Ventricle * The left ventricle is normal in size. * There is no thrombus. * There is mild concentric left ventricular hypertrophy. * Ejection Fraction = >70 %. * The left ventricle is hyperdynamic. * The left ventricular wall motion is normal. Right Ventricle * The right ventricle is normal size. * The right ventricle is hyperdynamic. Atria * The left atrial size is normal. * Right atrial size is normal. Mitral Valve * There is moderate mitral annular calcification. * There is no mitral valve stenosis. * Significant mitral regurgitation is absent. Tricuspid Valve * The tricuspid valve is normal. * There is no tricuspid stenosis. * Significant tricuspid regurgitation is absent. Aortic Valve * The aortic valve is not well visualized. Pulmonic Valve * The pulmonic valve is not well visualized. Great Vessels * The aortic root is normal size. Pericardium/Pleural * There is no pericardial effusion. Great Vessels * Normal inferior vena cava diameter and respiratory variation suggests normal central venous pressure. MMode 2D Measurements and Calculations LVAd ap4 28.6 cm\S\2 LVLd ap4 8.6 cm EDV(MOD-sp4) 80.8 ml LVAs ap4 12.7 cm\S\2 LVLs ap4 6.9 cm ESV(MOD-sp4) 20.0 ml EF(MOD-sp4) 75.2 % LVAd ap2 22.2 cm\S\2 LVLd ap2 7.8 cm EDV(MOD-sp2) 52.5 ml LVAs ap2 9.3 cm\S\2 LVLs ap2 6.1 cm ESV(MOD-sp2) 12.7 ml EF(MOD-sp2) 75.8 % SV(MOD-sp4) 60.8 ml SI(MOD-sp4) 29.5 ml/m\S\2 SV(MOD-sp2) 39.8 ml SI(MOD-sp2) 19.3 ml/m\S\2
[2016-11-14 18:41] LABS: INR 1.5 (0.9-1.1); PARTIAL THROMBOPLASTIN RATIO 1.7; PROTHROMBIN TIME (PATIENT) 16.1 SECONDS (9.0-12.0)
[2016-11-14 18:53] LABS: ALB/GLOB RATIO 0.3 (0.9-2); CALCIUM 7.4 mg/dl (8.5-10.1); CREATININE 1.1 mg/dl (0.60-1.20); MAGNESIUM 1.6 mg/dl (1.8-2.4); PHOSPHORUS 6.4 mg/dl (2.5-4.9); POTASSIUM 4.9 mmol/L (3.5-5.1)
[2016-11-14 19:09] LABS: BETA-HYDROXYBUTYRATE 17.88 mg/dL (0.2-2.81); HEMATOCRIT 30.1 % (37-47); MEAN CELL VOLUME 87.5 fL (80-100); MEAN CORPUSCULAR HEMOGLOBIN 29.7 pg (25-34); MEAN CORPUSCULAR HGB CONC 33.9 g/dl (32-36); MEAN PLATELET VOLUME 9.5 fL (7.4-10.4); PLATELET COUNT 462 K/uL (130-400); RED BLOOD COUNT 3.44 M/uL (4.2-5.4); WHITE BLOOD COUNT 45.57 K/uL (4.8-10.8)
[2016-11-14 19:12] LABS: COMPLETE YES; DOHLE BODIES OCCASIONAL; LYMPH ABS # 0.41 K/uL (1.2-3.4); LYMPHOCYTE % 0.9 %; META ABS # 0.41 K/uL (0-0); METAMYELOCYTE % 0.9 %; MYELOCYTE % 1.7 %; NEUTROPHILS % 95.6 %
--- NOTE | 2016-11-14 19:18 | Progress Note ---
Medicine Progress Note Date & Time of Visit: Nov 14, 2016 at 19:10. Subjective Patient seen and examined. Transferred to ICU post-operatively. Objective Last 8 Hrs Date Time Temp Pulse Resp B/P Pulse Ox O2 Delivery O2 Flow Rate FiO2 11/14/16 16:15 36.0 100 19 131/57 100 5.0 11/14/16 15:45 36.4 11/14/16 15:44 106 20 126/50 100 10.0 11/14/16 15:30 35.7 104 28 119/55 100 11/14/16 15:15 35.6 108 22 113/62 100 11/14/16 13:50 103 28 11/14/16 13:50 103 28 100 11/14/16 13:45 102 31 11/14/16 13:45 104/53 11/14/16 13:45 103 31 11/14/16 13:40 105 14 79 11/14/16 13:40 108 14 11/14/16 13:35 106 25 11/14/16 13:35 106 25 100 11/14/16 13:35 98/43 11/14/16 13:30 107 28 11/14/16 13:30 107 28 98 11/14/16 13:25 110 18 11/14/16 13:25 89/43 11/14/16 13:25 109 18 100 11/14/16 13:20 109 16 100 11/14/16 13:20 110 16 11/14/16 13:19 87/46 11/14/16 13:17 101/90 11/14/16 13:15 107 20 100 11/14/16 13:15 105 20 11/14/16 13:14 85/77 11/14/16 13:12 97/75 11/14/16 13:11 94/63 11/14/16 13:10 107 18 100 11/14/16 13:10 106 18 11/14/16 13:09 70/50 11/14/16 13:06 82/54 11/14/16 13:05 109 28 11/14/16 13:05 107 28 100 11/14/16 13:00 107 25 11/14/16 13:00 107 25 100 11/14/16 12:59 82/56 11/14/16 12:57 108 17 95 11/14/16 12:57 112 17 11/14/16 12:53 63/47 11/14/16 12:52 106 20 11/14/16 12:52 107 20 99 11/14/16 12:50 75/59 11/14/16 12:47 110 20 11/14/16 12:47 109 20 100 11/14/16 12:45 76/45 11/14/16 12:42 116 13 11/14/16 12:42 114 13 99 11/14/16 12:37 110 14 11/14/16 12:37 112 14 64/50 98 11/14/16 12:35 67/46 11/14/16 12:32 114 14 11/14/16 12:32 113 14 99 11/14/16 12:30 95/39 11/14/16 12:27 116 20 11/14/16 12:27 117 20 97 11/14/16 12:22 118 18 99 11/14/16 12:22 111 18 11/14/16 12:17 114 12 11/14/16 12:17 113 12 94/82 100 11/14/16 12:12 109 17 11/14/16 12:12 36.8 105 16 92/48 96 Mask 10 11/14/16 12:12 109 17 92/48 100 Physical Exam: General-awake; alert; NAD Eyes-EOMI; no scleral icterus Neck-no stridor; trachea midline Lungs-CTA bilaterally anteriorly Heart-RRR; no m/r/g Abdomen-soft; NTND; nBS Extremities-left leg bandage c/d/i Neuro-unable to fully assess Laboratory Results: Last 24 Hours Test 11/13/16 20:45 11/14/16 05:30 11/14/16 05:56 11/14/16 08:13 Bedside Glucose 138 mg/dl 73 mg/dl 97 mg/dl White Blood Count 13.71 K/uL Red Blood Count 3.04 M/uL Hemoglobin 8.8 g/dL Hematocrit 27.0 % Mean Corpuscular Volume 88.8 fL Mean Corpuscular Hemoglobin 28.9 pg Mean Corpuscular Hemoglobin Concent 32.6 g/dl RDW Standard Deviation 49.4 fL RDW Coefficient of Variation 15.2 % Platelet Count 513 K/uL Mean Platelet Volume 8.8 fL Sodium Level 137 mmol/L Potassium Level 3.8 mmol/L Chloride Level 100 mmol/L Carbon Dioxide Level 31 mmol/L Anion Gap 6.0 mmol/L Blood Urea Nitrogen 7 mg/dl Creatinine 0.43 mg/dl Est Creatinine Clear Calc Drug Dose 148.7 ml/min Estimated GFR () 122.0 Estimated GFR (Non- 105.2 BUN/Creatinine Ratio 16.3 Random Glucose 70 mg/dl Calcium Level 8.4 mg/dl Magnesium Level 1.9 mg/dl Test 11/14/16 12:27 11/14/16 13:21 11/14/16 15:25 11/14/16 15:30 Bedside Glucose 277 mg/dl White Blood Count 30.15 K/uL Red Blood Count 2.22 M/uL Hemoglobin 6.6 g/dL Hematocrit 20.2 % Mean Corpuscular Volume 91.0 fL Mean Corpuscular Hemoglobin 29.7 pg Mean Corpuscular Hemoglobin Concent 32.7 g/dl RDW Standard Deviation 52.3 fL RDW Coefficient of Variation 15.5 % Platelet Count 575 K/uL Mean Platelet Volume 9.0 fL Sodium Level 135 mmol/L Potassium Level 5.1 mmol/L Chloride Level 102 mmol/L Carbon Dioxide Level 14 mmol/L Anion Gap 19.0 mmol/L Blood Urea Nitrogen 8 mg/dl Creatinine 0.87 mg/dl Est Creatinine Clear Calc Drug Dose 73.5 ml/min Estimated GFR () 79.9 Estimated GFR (Non- 68.9 BUN/Creatinine Ratio 8.7 Random Glucose 257 mg/dl Calcium Level 7.8 mg/dl Troponin I < 0.015 ng/ml Blood Gas Sample Site Art Line Bedside Blood Gas pH (LAB) 7.29 Bedside Blood Gas pCO2 (LAB) 20 mmHg Bedside Blood Gas pO2 (LAB) 156 mmHg Bedside Blood Gas HCO3 (LAB) 10 meq/L Bedside Blood Gas Total CO2 11 mEq/l Bedside Blood Gas Base Excess (LAB) -17.0 meq/L Bedside Blood Gas O2 Saturation 99.0 % All Test NA Oxygen Delivery Device SimpleMask Lactic Acid Level 14.0 mmol/L Ionized Calcium 1.01 mmol/l Phosphorus Level 6.9 mg/dl Magnesium Level 1.8 mg/dl Total Bilirubin 0.5 mg/dl Direct Bilirubin 0.2 mg/dl Aspartate Amino Transf (AST/SGOT) 73 U/L Alanine Aminotransferase (ALT/SGPT) 12 U/L Alkaline Phosphatase 97 U/L Total Protein 5.4 gm/dl Albumin 1.2 gm/dl Test 11/14/16 17:29 11/14/16 18:23 Bedside Glucose 293 mg/dl White Blood Count 45.57 K/uL Red Blood Count 3.44 M/uL Hemoglobin 10.2 g/dL Hematocrit 30.1 % Mean Corpuscular Volume 87.5 fL Mean Corpuscular Hemoglobin 29.7 pg Mean Corpuscular Hemoglobin Concent 33.9 g/dl Platelet Count 462 K/uL Mean Platelet Volume 9.5 fL RDW Standard Deviation 49.6 fL RDW Coefficient of Variation 15.3 % Prothrombin Time 16.1 SECONDS Prothromb Time International Ratio 1.5 Activated Partial Thromboplast Time 44.3 SECONDS Partial Thromboplastin Ratio 1.7 Sodium Level 132 mmol/L Potassium Level 4.9 mmol/L Chloride Level 101 mmol/L Carbon Dioxide Level 15 mmol/L Anion Gap 16.0 mmol/L Creatinine 1.10 mg/dl Est Creatinine Clear Calc Drug Dose 58.1 ml/min Estimated GFR () 60.2 Estimated GFR (Non- 51.9 BUN/Creatinine Ratio 12.0 Random Glucose 392 mg/dl Lactic Acid Level 6.3 mmol/L Calcium Level 7.4 mg/dl Ionized Calcium 0.98 mmol/l Phosphorus Level 6.4 mg/dl Magnesium Level 1.6 mg/dl Total Bilirubin 0.9 mg/dl Aspartate Amino Transf (AST/SGOT) 142 U/L Alanine Aminotransferase (ALT/SGPT) 24 U/L Alkaline Phosphatase 109 U/L Total Creatine Kinase 167 U/L Total Protein 5.8 gm/dl Albumin 1.5 gm/dl Globulin 4.3 gm/dl Albumin/Globulin Ratio 0.3 Beta-Hydroxybutyric Acid 17.88 mg/dL Date/Time Source Procedure Growth Status 11/14/16 15:40 Blood Blood Culture Pending Received 11/14/16 13:27 Blood Blood Culture Pending Received 11/14/16 10:20 Joint Fluid/Space (Synovial) Knee Left Gram Stain - Final Resulted 11/14/16 10:20 Joint Fluid/Space (Synovial) Knee Left Bacterial Culture Pending Resulted Assessment & Plan SEPTIC ARTHRITIS LEFT TOTAL KNEE ARTHROPLASTY -taken to OR 11/14 for removal of implants with insertion of antibiotic spacer -ID consulted -patient on daptomycin -synovial cultures with staph aureus H/O MRSA BACTEREMIA -on daptomycin -management per ID UTI -urine culture with gram negative bacilli -patient on aztreonam ATRIAL FIBRILLATION -Diltiazem, Metoprolol on hold given post-operative hypotension -anticoagulation currently on hold DM2 -hold glipizide -insulin coverage -glycemic pharmacy consulted ACUTE BLOOD LOSS ANEMIA -transfused 2units PRBC's HTN -post operative hypotension requiring pressor support -metoprolol and diltiazem held H/O DVT -S/P IVC filter DVT PROPHYLAXIS: aspirin BID Current Inpatient Medications: Current Inpatient Medications Medications (Trade) Dose Ordered Sig/Denisse Route Start Time Stop Time Status Last Admin Dose Admin Pantoprazole Sodium (Protonix Tab) 40 mg QAM PO 11/14/16 09:00 12/14/16 08:59 Acetaminophen (Tylenol Tab) 650 mg Q4H PRN PO 11/13/16 13:00 12/13/16 12:59 11/13/16 23:43 650 MG Docusate Sodium (coLACE CAP) 100 mg BID PO 11/13/16 21:00 12/13/16 20:59 11/13/16 21:02 100 MG Folic Acid (Folvite Tab) 1 mg DAILY PO 11/14/16 09:00 12/14/16 08:59 Tramadol HCl (Ultram Tab) 50 mg Q4H PRN PO 11/13/16 13:00 12/13/16 12:59 11/13/16 23:43 50 MG Morphine Sulfate (MoRPHine SULFATE INJ) 2 mg Q4H PRN IV 11/13/16 13:30 11/27/16 13:29 Morphine Sulfate (MoRPHine SULFATE INJ) 4 mg Q4H PRN IV 11/13/16 13:30 11/27/16 13:29 11/14/16 16:05 4 MG Morphine Sulfate 6 mg 6 mg Q4H PRN IV 11/13/16 13:30 11/27/16 13:29 Daptomycin/Sodium Chloride (Cubicin IV/Nss 50ml) 62 ml @ 120 mls/hr Q24H IV 11/13/16 14:00 12/25/16 13:59 11/14/16 14:39 120 MLS/HR Glucose (Glucose 40% Gel) 15-30 GRAMS 15 GRAMS... UD PRN PO 11/13/16 14:30 12/13/16 14:29 Glucose (Glucose Chew Tab) 4-8 Tablets 4 Tabl... UD PRN PO 11/13/16 14:30 12/13/16 14:29 Dextrose (Dextrose 50% 50ML Syringe) 25-50ML OF 50% DW IV FOR... UD PRN IV 11/13/16 14:30 12/13/16 14:29 Glucagon (Glucagon Inj) 1 mg UD PRN SQ 11/13/16 14:30 12/13/16 14:29 Oxycodone HCl (Roxicodone Immediate Rel Tab) 1 TABLET FOR PAIN RATING... Q4H PRN PO 11/14/16 11:45 11/28/16 11:44 Magnesium Hydroxide (Milk Of Magnesia Susp) 30 ml Q6H PRN PO 11/14/16 11:45 12/14/16 11:44 Bisacodyl (Dulcolax Supp) 10 mg DAILY PRN IA 11/14/16 11:45 12/14/16 11:44 Senna (Senokot Tab) 17.2 mg HS PO 11/14/16 21:00 12/14/16 20:59 Diphenhydramine HCl (Benadryl Inj) 25 mg Q8H PRN IV 11/14/16 11:45 12/14/16 11:44 Al Hydrox/Mg Hydrox/Simethicone (Maalox Max Susp) 15 ml Q4H PRN PO 11/14/16 11:45 12/14/16 11:44 Multivitamins (Multivitamin Tab) 1 tab QAM PO 11/15/16 09:00 12/15/16 08:59 Ondansetron HCl (Zofran Inj) 4 mg Q6H PRN IV 11/14/16 11:45 12/14/16 11:44 11/14/16 16:03 4 MG Ferrous Gluconate (Ferrous Gluconate Tab) 324 mg TIDM PO 11/14/16 12:30 12/14/16 12:29 Aspirin 81 mg 81 mg BID PO 11/14/16 21:00 12/14/16 20:59 Phenylephrine HCl 20 mg/Dextrose 502 ml @ 0 mls/hr Q0M PRN IV 11/14/16 14:15 12/14/16 14:14 Norepinephrine Bitartrate 8 mg/ Dextrose 508 ml @ 0 mls/hr Q0M PRN IV 11/14/16 14:14 12/14/16 14:13 11/14/16 14:39 37.5 MLS/HR Sodium Chloride (Nss 1000ml) 1,000 ml @ 150 mls/hr Q6H40M IV 11/14/16 15:15 12/14/16 15:14 11/14/16 16:07 125 MLS/HR Insulin Glargine (Lantus Solostar Pen) see protocol text BID SC 11/14/16 17:00 12/14/16 16:59 11/14/16 17:36 18 UNIT Insulin Aspart SLIDING SCALE If C... ACHS SC 11/14/16 21:00 12/14/16 20:59 Aztreonam 1000 mg/ Dextrose 110 ml @ 100 mls/hr Q8@0000,0800,1600 IV 11/14/16 17:00 11/24/16 15:59 11/14/16 17:28 100 MLS/HR Magnesium Sulfate 1 gm/Prmx 100 ml @ 100 mls/hr Q1H IV 11/14/16 19:30 11/14/16 21:29 Calcium Chloride/ Sodium Chloride (Calcium Chloride 10%/Nss 50ml) 60 ml @ 240 mls/hr TODAY@1930 IV 11/14/16 19:30 11/14/16 19:44
[2016-11-14] MEDS: MAGNESIUM SULFATE 1GM / D5W 1 GM in PREMIXED IN D5W 100 ML IV SCH ×2 (19:30→21:00)
[2016-11-14] MEDS: ASPIRIN 81 MG ECTAB PO SCH (21:26)
[2016-11-14] MEDS: SENNA 8.6 MG TAB PO SCH (21:26)
[2016-11-14] MEDS ORDERED: DC ALL PREVIOUSLY ORDERED DIABETES MEDS ONE (21:30)
[2016-11-14] MEDS ORDERED: PHARMACY GLYCEMIC MGMT CONSULT PRN (21:30)
[2016-11-14] MEDS ORDERED: SEVERE STRESS LEVEL ONE (21:30)
[2016-11-14] MEDS ORDERED: DKA GOAL RANGE 150-250 mg/dl 1 EA ONE (21:30)
[2016-11-14] MEDS ORDERED: INSULIN IV INFUSION PROTOCOL SCH (21:35)
--- NOTE | 2016-11-14 21:39 | Progress Note ---
Progress Note Date of Service Nov 14, 2016. 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 very pain full to touch pt evaluated at bed side s/p rt bka , prabhjot wrap and drain present on left knee post op I&D left foot -cold to touch , toes are cyanotic , no pulse with Doppler very painful to touch Ortho updated -recommended vascular consult Dr Botello consulted, updated by Nursing -possible limb ischemia -Dr Botello mentions of possible transfer to tertiary care if pt needs emergent vascular procedure stat arterial Doppler ordered on left leg pt remains lethargic , wakes up briefly , complains of pain on left foot , given IV morphine for relief stat Lactic acid ordered remains in Levophed gtt BSG > 400 ordered for IV insulin gtt Claims Counsel updated , pt will be evaluated by Claims Counsel roro
[2016-11-14] MEDS ORDERED: AMIODARONE IV BOLUS / DRIP IV STA (21:47)
[2016-11-14] MEDS ORDERED: AMIODARONE 150MG / 100ML D5W ONE (21:52)
[2016-11-14] MEDS ORDERED: AMIODARONE / D5W 100 ML IV STA (21:56)
[2016-11-14] MEDS ORDERED: AMIODARONE / D5W 200 ML IV SCH (22:00)
[2016-11-14 22:37] LABS: ISTAT ARTERIAL BLOOD GAS HCO3 16 meq/L (19-24); ISTAT ARTERIAL BLOOD GAS PCO2 29 mmHg (35-46); ISTAT ARTERIAL BLOOD GAS PO2 92 mmHg (80-95); ISTAT ARTERIAL BLOOD GAS pH 7.34 (7.35-7.45); ISTAT CARBON DIOXIDE 17 mEq/l (24-31); ISTAT DELIVERY SYSTEM Cannula; ISTAT SITE Art Line
--- NOTE | 2016-11-14 22:44 | DIAGNOSTIC IMAGING REPORT ---
LEFT LOWER EXTREMITY ARTERIAL DOPPLER STUDY CLINICAL HISTORY: left foot cyanosis /limb ischemia COMPARISON STUDY: Bilateral lower extremity arterial Doppler study 10/21/2016. Bilateral venous Doppler study 10/20/2016. FINDINGS: Diffusely calcified left lower extremity arterial structures. Triphasic normal velocity waveforms seen within the left common femoral, deep femoral, and proximal to mid superficial femoral arteries. Monophasic normal velocity waveforms seen within the distal left superficial femoral artery. The popliteal artery and vein were unable to be visualized due to the patient's recent knee surgery. No flow identified within the anterior tibial and dorsalis pedis arteries. Trace flow seen within the proximal peroneal artery and within the distal posterior tibial artery demonstrating low velocity monophasic waveforms. No flow detected within the mid to distal peroneal artery and proximal to mid left posterior tibial artery. Progression of the left lower extremity DVT which now extends into the superficial femoral vein which is nearly occlusive distally. Thrombus is also identified within the posterior tibial vein. IMPRESSION: 1. No flow identified within the anterior tibial and dorsalis pedis artery consistent with occlusion. 2. No flow identified within the mid to distal peroneal artery and proximal to mid left posterior tibial artery. Trace monophasic flow seen within the proximal peroneal artery and distal posterior tibial artery. 3. Progression of the left lower extremity acute DVT as described above. 4. The left popliteal vein and artery were unable to be visualized due to the patient's recent knee surgery. Electronically signed by: Zane Monroy M.D. 11/14/2016 10:42 PM Dictated Date/Time: 11/14/2016 10:37 PM
[2016-11-14 22:45] LABS: INR 1.4 (0.9-1.1); PARTIAL THROMBOPLASTIN RATIO 1.6; PROTHROMBIN TIME (PATIENT) 15.5 SECONDS (9.0-12.0)
[2016-11-14] MEDS ORDERED: FENTANYL CITRATE INJ 50 MCG/1 ML 2 ML VIAL IV ONE (22:45)
[2016-11-14] MEDS ORDERED: INSULIN HUMAN REGULAR IV BOLUS 4 UNIT in SYRINGE 0 ML IV SCH (22:45)
[2016-11-14] MEDS ORDERED: INSULIN REGULAR 250 UNITS in SODIUM CHLORIDE 0.9% 250ML 250 ML IV SCH (22:45)
[2016-11-14 23:03] LABS: ALB/GLOB RATIO 0.3 (0.9-2); BUN/CREATININE RATIO 13.8 (10-20); CALCIUM 8.2 mg/dl (8.5-10.1); CREATININE 1.2 mg/dl (0.60-1.20); MAGNESIUM 2.1 mg/dl (1.8-2.4); PHOSPHORUS 5.8 mg/dl (2.5-4.9); POTASSIUM 4.3 mmol/L (3.5-5.1)
[2016-11-14 23:16] LABS: BETA-HYDROXYBUTYRATE 16.64 mg/dL (0.2-2.81)
[2016-11-14 23:18] LABS: HEMATOCRIT 27.5 % (37-47); MEAN CELL VOLUME 84.9 fL (80-100); MEAN CORPUSCULAR HEMOGLOBIN 28.4 pg (25-34); MEAN CORPUSCULAR HGB CONC 33.5 g/dl (32-36); MEAN PLATELET VOLUME 9.5 fL (7.4-10.4); PLATELET COUNT 461 K/uL (130-400); RED BLOOD COUNT 3.24 M/uL (4.2-5.4); WHITE BLOOD COUNT 37.86 K/uL (4.8-10.8)
[2016-11-14 23:19] LABS: COMPLETE YES; LYMPH ABS # 1.67 K/uL (1.2-3.4); LYMPHOCYTE % 4.4 %; META ABS # 2.99 K/uL (0-0); METAMYELOCYTE % 7.9 %; MYELOCYTE % 4.4 %; NEUTROPHILS % 80.7 %
[2016-11-15] VITALS (22 sets, daily range): BP systolic 87–171; BP diastolic 41–71; PULSE 69–103; TEMP 36.4; O2SAT 92–100
[2016-11-15 00:36] LABS: BUN/CREATININE RATIO 12.7 (10-20); CALCIUM 7.5 mg/dl (8.5-10.1); CREATININE 1.2 mg/dl (0.60-1.20); POTASSIUM 3.9 mmol/L (3.5-5.1)
[2016-11-15 00:44] LABS: HEMATOCRIT 21.9 % (37-47); MEAN CELL VOLUME 84.2 fL (80-100); MEAN CORPUSCULAR HEMOGLOBIN 29.6 pg (25-34); MEAN CORPUSCULAR HGB CONC 35.2 g/dl (32-36); MEAN PLATELET VOLUME 9.1 fL (7.4-10.4); PLATELET COUNT 300 K/uL (130-400); WHITE BLOOD COUNT 26.54 K/uL (4.8-10.8)
[2016-11-15 00:50] LABS: BETA-HYDROXYBUTYRATE 4.26 mg/dL (0.2-2.81)
[2016-11-15 01:05] LABS: BUN/CREATININE RATIO 12.5 (10-20); CALCIUM 7.4 mg/dl (8.5-10.1); CREATININE 1.3 mg/dl (0.60-1.20)
[2016-11-15 01:06] LABS: COMPLETE YES; LYMPH ABS # 0.69 K/uL (1.2-3.4); LYMPHOCYTE % 2.6 %; META ABS # 0.69 K/uL (0-0); METAMYELOCYTE % 2.6 %; NEUTROPHILS % 93.1 %; POLYCHROMASIA 1+
[2016-11-15 01:07] LABS: ALB/GLOB RATIO 0.3 (0.9-2); PHOSPHORUS 4.8 mg/dl (2.5-4.9)
[2016-11-15 01:14] LABS: BETA-HYDROXYBUTYRATE 2.02 mg/dL (0.2-2.81)
--- NOTE | 2016-11-15 01:31 | Progress Note ---
Progress Note Date of Service Nov 15, 2016. 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 26 K acute blood loss anemia post op -hb 9.2-> 7.7 ( received 2 units of PRBC tranfusion earlier ) ordered for 1 unit of PRBC transfusion now cont lab monitoring CBC , PRP , lactic acid level q 6hrs as per sepsis protocol Lower arterial ext Doppler on left : IMPRESSION: 1. No flow identified within the anterior tibial and dorsalis pedis artery consistent with occlusion. 2. No flow identified within the mid to distal peroneal artery and proximal to mid left posterior tibial artery. Trace monophasic flow seen within the proximal peroneal artery and distal posterior tibial artery. 3. Progression of the left lower extremity acute DVT as described above. 4. The left popliteal vein and artery were unable to be visualized due to the patient's recent knee surgery. Vascular surgery Dr Hogan consulted pt evaluated by Managing Principal at bed side earlier
[2016-11-15] MEDS: AMIODARONE / D5W 200 ML IV SCH ×2 (03:50→15:44)
[2016-11-15] MEDS: SODIUM CHLORIDE 0.9% 1000ML 1,000 ML IV SCH ×4 (05:38→23:55)
[2016-11-15 07:11] LABS: HEMATOCRIT 25.6 % (37-47); MEAN CELL VOLUME 84.5 fL (80-100); MEAN CORPUSCULAR HEMOGLOBIN 29.4 pg (25-34); MEAN CORPUSCULAR HGB CONC 34.8 g/dl (32-36); MEAN PLATELET VOLUME 9.3 fL (7.4-10.4); PLATELET COUNT 300 K/uL (130-400); RED BLOOD COUNT 3.03 M/uL (4.2-5.4); WHITE BLOOD COUNT 26.25 K/uL (4.8-10.8)
[2016-11-15 07:47] LABS: BASO % 0.2 %; BASO ABS # 0.06 K/uL (0-0.2); COMPLETE YES; EOS % 0.1 %; IG% 4.1 %; LYMPH % 6.8 %; LYMPH ABS # 1.79 K/uL (1.2-3.4); MONO % 5.3 %; NEUT % 83.5 %
[2016-11-15 07:48] LABS: BUN/CREATININE RATIO 14.3 (10-20); CALCIUM 7.5 mg/dl (8.5-10.1); CREATININE 1.3 mg/dl (0.60-1.20); MAGNESIUM 2.2 mg/dl (1.8-2.4); POTASSIUM 3.9 mmol/L (3.5-5.1)
[2016-11-15 07:50] LABS: ALB/GLOB RATIO 0.3 (0.9-2); PHOSPHORUS 4.4 mg/dl (2.5-4.9)
[2016-11-15] MEDS ORDERED: INSULIN ASPART 100 UNITS/ML 3 ML PEN SC SCH ×3 (08:00→12:00)
[2016-11-15 08:40] LABS: ISTAT ARTERIAL BLOOD GAS HCO3 19 meq/L (19-24); ISTAT ARTERIAL BLOOD GAS PCO2 31 mmHg (35-46); ISTAT ARTERIAL BLOOD GAS PO2 69 mmHg (80-95); ISTAT ARTERIAL BLOOD GAS pH 7.38 (7.35-7.45); ISTAT CARBON DIOXIDE 20 mEq/l (24-31); ISTAT DELIVERY SYSTEM Room Air; ISTAT SITE Art Line
[2016-11-15] MEDS: DOCUSATE SODIUM 100 MG CAP PO SCH ×2 (08:41→20:54)
[2016-11-15] MEDS: AZTREONAM IV 1,000 MG in DEXTROSE 5% 100ML 100 ML IV SCH ×5 (08:41→23:54)
[2016-11-15] MEDS: ASPIRIN 81 MG ECTAB PO SCH ×2 (08:41→20:54)
--- NOTE | 2016-11-15 08:48 | Orthopedic Progress Note ---
Orthopedic Progress Note Date of Service Nov 15, 2016. Subjective Post OP Day: 1 Reports: pain controlled w PO medications, Denies: SOB, chest pain, complaints, light headedness, nausea / vomiting Additional Notes: Feeling better overall. Minimal pain left knee. No pain L foot or ankle. Objective calves soft nontender, dressing C/D/I, incision C/D/I, A&O x3, toes mobile, hemovac drainage prevena wound vac over incision hemovac drain in place mild erythema noted over proximal tibia Intermittently palpable pulse distally. Foot and ankle warm, toes cool. Not dissimilar compared to pre-op. No mottleing. Sensation unchanged foot and ankle. Able to move ankle and foot. Date Time Temp Pulse Resp B/P Pulse Ox O2 Delivery O2 Flow Rate FiO2 11/15/16 06:00 82 20 129/45 95 Room Air 116/62 11/15/16 05:34 36.4 83 17 141/50 97 11/15/16 04:45 84 18 124/47 95 11/15/16 04:00 36.4 84 15 117/61 92 Room Air 113/60 11/15/16 04:00 Room Air 11/15/16 03:45 86 20 124/45 100 3.0 11/15/16 03:45 86 20 124/45 100 11/15/16 03:30 36.4 86 19 119/44 98 3.0 11/15/16 03:18 36.4 90 19 108/63 98 3.0 11/15/16 02:00 92 19 113/44 100 Nasal Cannula 3.0 96/55 11/15/16 00:30 102 20 105/41 98 Nasal Cannula 3.0 87/53 11/15/16 00:01 Nasal Cannula 3.0 11/15/16 00:00 36.4 103 21 105/41 97 Nasal Cannula 3.0 89/55 11/14/16 23:30 97 21 148/52 97 Nasal Cannula 3.0 113/82 11/14/16 23:00 119 23 143/55 96 Nasal Cannula 3.0 93/66 11/14/16 22:30 111 21 143/51 98 Nasal Cannula 3.0 116/68 11/14/16 22:05 120 16 119/52 97 11/14/16 22:00 Nasal Cannula 3.0 130/96 11/14/16 22:00 123 22 199/74 99 11/14/16 21:53 144 15 141/54 96 11/14/16 21:50 148 26 134/56 96 11/14/16 21:45 150 17 184/65 98 Nasal Cannula 3.0 73/56 11/14/16 21:42 174 22 122/53 11/14/16 21:35 143 0 187/56 99 11/14/16 21:32 131 22 154/48 99 Nasal Cannula 3.0 88/70 11/14/16 21:00 123 24 149/47 100 Nasal Cannula 3.0 109/67 11/14/16 20:43 123 28 139/54 99 Nasal Cannula 3.0 121/62 11/14/16 20:15 125 26 135/52 100 Nasal Cannula 3.0 110/79 11/14/16 20:05 127 19 94/46 90 11/14/16 20:00 134/66 Nasal Cannula 3.0 11/14/16 20:00 94 Nasal Cannula 5.0 11/14/16 20:00 35.7 127 24 144/56 99 11/14/16 19:50 155 21 137/57 97 11/14/16 19:45 142 21 140/0 99 Nasal Cannula 3.0 104/67 11/14/16 19:30 126 17 127/41 97 Nasal Cannula 3.0 127/115 11/14/16 19:15 127 16 98/40 96 Nasal Cannula 3.0 108/80 11/14/16 19:00 124 19 107/39 97 Nasal Cannula 3.0 141/64 11/14/16 18:45 122 12 89/37 94 11/14/16 18:30 125 24 113/44 97 11/14/16 18:15 118 12 123/43 100 11/14/16 18:00 115 14 104/41 99 11/14/16 17:45 129 12 98/66 99 11/14/16 17:30 106 17 111/41 99 11/14/16 17:15 114 23 108/43 100 11/14/16 17:01 116 23 106/41 97 11/14/16 17:00 115 17 93/36 99 11/14/16 16:45 119 20 82/48 88 11/14/16 16:31 108 25 121/55 100 11/14/16 16:30 109 29 120/54 99 11/14/16 16:16 99 22 117/49 100 11/14/16 16:15 100 19 131/57 100 11/14/16 16:15 36.0 100 19 131/57 100 5.0 11/14/16 16:00 103 15 147/62 100 11/14/16 15:45 36.4 11/14/16 15:45 109 22 118/62 98 11/14/16 15:44 106 20 126/50 100 10.0 11/14/16 15:33 35.9 104 26 114/54 100 11/14/16 15:30 99 30 108/54 95 11/14/16 15:30 35.7 104 28 119/55 100 11/14/16 15:15 35.7 108 27 119/59 100 11/14/16 15:15 35.6 108 22 113/62 100 11/14/16 15:00 96 Mask 10.0 11/14/16 15:00 111 22 87/42 100 11/14/16 13:50 103 28 11/14/16 13:50 103 28 100 11/14/16 13:45 102 31 11/14/16 13:45 104/53 11/14/16 13:45 103 31 11/14/16 13:40 105 14 79 11/14/16 13:40 108 14 11/14/16 13:35 106 25 11/14/16 13:35 106 25 100 11/14/16 13:35 98/43 11/14/16 13:30 107 28 11/14/16 13:30 107 28 98 11/14/16 13:25 110 18 11/14/16 13:25 89/43 11/14/16 13:25 109 18 100 11/14/16 13:20 109 16 100 11/14/16 13:20 110 16 11/14/16 13:19 87/46 11/14/16 13:17 101/90 11/14/16 13:15 107 20 100 11/14/16 13:15 105 20 11/14/16 13:14 85/77 11/14/16 13:12 97/75 11/14/16 13:11 94/63 11/14/16 13:10 107 18 100 11/14/16 13:10 106 18 11/14/16 13:09 70/50 11/14/16 13:06 82/54 11/14/16 13:05 109 28 11/14/16 13:05 107 28 100 11/14/16 13:00 107 25 11/14/16 13:00 107 25 100 11/14/16 12:59 82/56 11/14/16 12:57 108 17 95 11/14/16 12:57 112 17 11/14/16 12:53 63/47 11/14/16 12:52 106 20 11/14/16 12:52 107 20 99 11/14/16 12:50 75/59 11/14/16 12:47 110 20 11/14/16 12:47 109 20 100 11/14/16 12:45 76/45 11/14/16 12:42 116 13 11/14/16 12:42 114 13 99 11/14/16 12:37 110 14 11/14/16 12:37 112 14 64/50 98 11/14/16 12:35 67/46 11/14/16 12:32 114 14 11/14/16 12:32 113 14 99 11/14/16 12:30 95/39 11/14/16 12:27 116 20 11/14/16 12:27 117 20 97 11/14/16 12:22 118 18 99 11/14/16 12:22 111 18 11/14/16 12:17 114 12 11/14/16 12:17 113 12 94/82 100 11/14/16 12:12 109 17 11/14/16 12:12 36.8 105 16 92/48 96 Mask 10 11/14/16 12:12 109 17 92/48 100 Laboratory Results 24 Hours: Test 11/14/16 13:21 11/14/16 18:23 11/14/16 22:20 11/15/16 00:34 Hematocrit 20.2 % 30.1 % 27.5 % 21.9 % Hemoglobin 6.6 g/dL 10.2 g/dL 9.2 g/dL 7.7 g/dL White Blood Count 45.57 K/uL 37.86 K/uL 26.54 K/uL Red Blood Count 3.44 M/uL 3.24 M/uL 2.60 M/uL Mean Corpuscular Volume 87.5 fL 84.9 fL 84.2 fL Mean Corpuscular Hemoglobin 29.7 pg 28.4 pg 29.6 pg Mean Corpuscular Hemoglobin Concent 33.9 g/dl 33.5 g/dl 35.2 g/dl Platelet Count 462 K/uL 461 K/uL 300 K/uL Mean Platelet Volume 9.5 fL 9.5 fL 9.1 fL Prothromb Time International Ratio 1.5 1.4 Prothrombin Time 16.1 SECONDS 15.5 SECONDS Test 11/15/16 07:00 White Blood Count 26.25 K/uL Red Blood Count 3.03 M/uL Hemoglobin 8.9 g/dL Hematocrit 25.6 % Mean Corpuscular Volume 84.5 fL Mean Corpuscular Hemoglobin 29.4 pg Mean Corpuscular Hemoglobin Concent 34.8 g/dl Platelet Count 300 K/uL Mean Platelet Volume 9.3 fL Neutrophils (%) (Auto) 83.5 % Lymphocytes (%) (Auto) 6.8 % Monocytes (%) (Auto) 5.3 % Eosinophils (%) (Auto) 0.1 % Basophils (%) (Auto) 0.2 % Neutrophils # (Auto) 21.92 K/uL Lymphocytes # (Auto) 1.79 K/uL Monocytes # (Auto) 1.39 K/uL Eosinophils # (Auto) 0.02 K/uL Basophils # (Auto) 0.06 K/uL Assessment & Plan Assessment: SEPTIC ARTHRITIS LEFT TOTAL KNEE ARTHROPLASTY -POD #1 s/p I&D, removal total knee implant, placement of antibiotic spacer and prevena wound vac -ID Consult, currently on Daptomycin, h/o MRSA -Vascular studies performed of left lower leg showing no flow w/in ant tib and dors pedis artery, as well as no flow mid/distal peroneal artery. progression of the left LE DVT. Dr Botello consulted and will await recommendations. UTI -urine culture with gram negative bacilli ATRIAL FIBRILLATION DM2 -glycemic pharmacy consulted ACUTE BLOOD LOSS ANEMIA -transfused 2units PRBC's - H/H this am at 8.9/25.6 H/O DVT -S/P IVC filter Plan: Discussed case at length with the Developing Machine Tender. Anticoagulation may begin today NWB L LE for now; transfers only Continue Anbx and schedule for PICC line. Dr Botello input appreciated. Continue close observation Left foot Will follow (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
[2016-11-15] MEDS ORDERED: INSULIN GLARGINE SOLOSTAR 100 UNITS/ML 3 ML PEN SC SCH ×2 (09:00→21:00)
[2016-11-15] MEDS: PANTOprazole SOD 40 MG TAB PO SCH (09:06)
[2016-11-15] MEDS: FERROUS GLUCONATE 324 MG TAB PO SCH ×3 (09:06→15:43)
[2016-11-15] MEDS: MULTIVITAMIN TAB PO SCH (09:06)
[2016-11-15 09:20] LABS: CALCIUM 7.3 mg/dl (8.5-10.1); CREATININE 1.3 mg/dl (0.60-1.20); PHOSPHORUS 4.2 mg/dl (2.5-4.9); POTASSIUM 3.9 mmol/L (3.5-5.1)
--- NOTE | 2016-11-15 09:27 | Progress Note ---
Progress Note Date of Service: Nov 15, 2016. Subjective Patient had left knee implants removed and spacer placed. She had a cold pale foot post op on the left side. She was on pressors at the time and possibly septic. This am she is not complaining of any foot pain and does move it. Objective Vital Signs Vital Signs Past 12 Hours Date Time Temp Pulse Resp B/P Pulse Ox O2 Delivery O2 Flow Rate FiO2 11/19/16 12:00 Room Air 11/19/16 10:57 36.6 75 20 151/90 92 Room Air 11/19/16 08:00 Room Air 11/19/16 07:23 36.5 80 20 161/93 96 Room Air 11/19/16 04:00 Room Air 11/19/16 03:19 36.8 92 18 137/78 96 Room Air Exam Left foot with capillary refill, but decreased. She does move her foot. There is both a DP and PT to doppler. Intake & Output 8-Hour Column 11/18/16 11/19/16 11/19/16 16:00 00:00 08:00 Intake Total 1400 ml 320 ml 100 ml Output Total 1700 ml 1350 ml 650 ml Balance -300 ml -1030 ml -550 ml 24-Hour Column 11/19/16 08:00 Intake Total 1820 ml Output Total 3700 ml Balance -1880 ml Laboratory and Microbiology Results Past 24 Hours Test 11/18/16 16:20 11/18/16 20:02 11/19/16 01:51 11/19/16 05:55 Range/Units Bedside Glucose 136 183 95 70-90 mg/dl White Blood Count 12.97 4.8-10.8 K/uL Red Blood Count 3.12 4.2-5.4 M/uL Hemoglobin 9.0 12.0-16.0 g/dL Hematocrit 26.9 37-47 % Mean Corpuscular Volume 86.2 80-100 fL Mean Corpuscular Hemoglobin 28.8 25-34 pg Mean Corpuscular Hemoglobin Concent 33.5 32-36 g/dl RDW Standard Deviation 48.7 36.4-46.3 fL RDW Coefficient of Variation 15.6 11.5-14.5 % Platelet Count 512 130-400 K/uL Mean Platelet Volume 8.7 7.4-10.4 fL Sodium Level 136 136-145 mmol/L Potassium Level 3.3 3.5-5.1 mmol/L Chloride Level 100 98-107 mmol/L Carbon Dioxide Level 29 21-32 mmol/L Anion Gap 7.0 3-11 mmol/L Blood Urea Nitrogen 7 7-18 mg/dl Creatinine 0.37 0.60-1.20 mg/dl Est Creatinine Clear Calc Drug Dose 168.1 ml/min Estimated GFR () 128.2 Estimated GFR (Non- 110.6 BUN/Creatinine Ratio 17.6 10-20 Random Glucose 110 70-99 mg/dl Calcium Level 7.0 8.5-10.1 mg/dl Magnesium Level 1.4 1.8-2.4 mg/dl Test 11/19/16 06:34 11/19/16 11:13 Range/Units Bedside Glucose 116 153 70-90 mg/dl Imp: Left lower extremity peripheral vascular disease Plan: Continue present therapy. The foot is viable with doppler flow. No indication for any intervention at this time. Will follow the foot conservatively. Would not do any studies at this time unless she develops symptoms of acute ischemia. Thank you very much for letting me participate in the care of this patient. Please call if needed.
--- NOTE | 2016-11-15 11:40 | Pharmacy Progress Note ---
Glycemic Control: Progress Nt Date of Service Nov 15, 2016. Scope Glycemic Pharmacist consulted by Freya Carbone PA-C on 11/13/16 for glycemic control and to write orders per [facility] inpatient glycemic control protocol. Objective Accuchecks BSG (last 24hrs): Test 11/14/16 12:27 11/14/16 13:21 11/14/16 17:29 11/14/16 18:23 Bedside Glucose 277 mg/dl (70-90) 293 mg/dl (70-90) Random Glucose 257 mg/dl (70-99) 392 mg/dl (70-99) Test 11/14/16 22:20 11/14/16 23:53 11/15/16 00:34 11/15/16 00:38 Random Glucose 441 mg/dl (70-99) 361 mg/dl (70-99) 345 mg/dl (70-99) Bedside Glucose 398 mg/dl (70-90) Test 11/15/16 01:32 11/15/16 02:33 11/15/16 03:39 11/15/16 04:39 Bedside Glucose 299 mg/dl (70-90) 265 mg/dl (70-90) 251 mg/dl (70-90) 213 mg/dl (70-90) Test 11/15/16 05:24 11/15/16 06:28 11/15/16 07:00 11/15/16 07:31 Bedside Glucose 202 mg/dl (70-90) 165 mg/dl (70-90) 135 mg/dl (70-90) Random Glucose 159 mg/dl (70-99) Test 11/15/16 08:28 11/15/16 08:45 11/15/16 09:34 11/15/16 10:32 Bedside Glucose 130 mg/dl (70-90) 118 mg/dl (70-90) 115 mg/dl (70-90) Random Glucose 122 mg/dl (70-99) Laboratory Data (last 24hrs) Test 11/14/16 13:21 11/14/16 18:23 11/14/16 22:20 11/14/16 23:53 Anion Gap 19.0 mmol/L 16.0 mmol/L 15.0 mmol/L 11.0 mmol/L BUN/Creatinine Ratio 8.7 12.0 13.8 12.7 Blood Urea Nitrogen 8 mg/dl 13 mg/dl 17 mg/dl 15 mg/dl Creatinine 0.87 mg/dl 1.10 mg/dl 1.20 mg/dl 1.20 mg/dl Potassium Level 5.1 mmol/L 4.9 mmol/L 4.3 mmol/L 3.9 mmol/L Sodium Level 135 mmol/L 132 mmol/L 132 mmol/L 135 mmol/L White Blood Count 30.15 K/uL 45.57 K/uL 37.86 K/uL Red Blood Count 3.44 M/uL 3.24 M/uL Hemoglobin 10.2 g/dL 9.2 g/dL Hematocrit 30.1 % 27.5 % Mean Corpuscular Volume 87.5 fL 84.9 fL Mean Corpuscular Hemoglobin 29.7 pg 28.4 pg Mean Corpuscular Hemoglobin Concent 33.9 g/dl 33.5 g/dl Platelet Count 462 K/uL 461 K/uL Mean Platelet Volume 9.5 fL 9.5 fL Test 11/15/16 00:34 11/15/16 07:00 11/15/16 08:45 Anion Gap 12.0 mmol/L 10.0 mmol/L 9.0 mmol/L BUN/Creatinine Ratio 12.5 14.3 16.0 Blood Urea Nitrogen 16 mg/dl 19 mg/dl 21 mg/dl Creatinine 1.30 mg/dl 1.30 mg/dl 1.30 mg/dl Potassium Level 4.0 mmol/L 3.9 mmol/L 3.9 mmol/L Sodium Level 135 mmol/L 135 mmol/L 134 mmol/L White Blood Count 26.54 K/uL 26.25 K/uL Red Blood Count 2.60 M/uL 3.03 M/uL Hemoglobin 7.7 g/dL 8.9 g/dL Hematocrit 21.9 % 25.6 % Mean Corpuscular Volume 84.2 fL 84.5 fL Mean Corpuscular Hemoglobin 29.6 pg 29.4 pg Mean Corpuscular Hemoglobin Concent 35.2 g/dl 34.8 g/dl Platelet Count 300 K/uL 300 K/uL Mean Platelet Volume 9.1 fL 9.3 fL Neutrophils (%) (Auto) 83.5 % Lymphocytes (%) (Auto) 6.8 % Monocytes (%) (Auto) 5.3 % Eosinophils (%) (Auto) 0.1 % Basophils (%) (Auto) 0.2 % Neutrophils # (Auto) 21.92 K/uL Lymphocytes # (Auto) 1.79 K/uL Monocytes # (Auto) 1.39 K/uL Eosinophils # (Auto) 0.02 K/uL Basophils # (Auto) 0.06 K/uL HbA1c: Item Value Date Time Hemoglobin A1c 7.7 % H 10/20/16 0545 Estimated Average Glucose 174 mg/dl 10/20/16 0545 Recent Pertinent Medications Outpatient Anti-diabetic Regimen: * Glipizide ER 10mg qAM, Novolog QID per SS, Lantus 18 units BID * A1c = 7.7 % 10/20/16 Risk Factors for Insulin Resistance: * Infection: Infected total knee replacement * IVF: NS, ABX in dextrose * Recent Surgery: L TKR 10/22/16; OR 11/14 for ABX spacer * Diet: clears Assessment & Plan ASSESSMENT: 11/13/16 * Pt is a 66 yo female readmitted s/p L TKR on 10/22/16. Knee is infected and requires surgical intervention tomorrow by Dr. Ibarra. * The pharmacy glycemic service is somewhat familiar with this patient from her most recent admission. * Will begin an inpatient glycemic regimen based primarily on past admission data. * Will be a priority to keep BSGs controlled in setting of infection and surgery. * Pt is maintained on oral antidiabetic agent - Glipizide ER - as an outpatient * Oral agents are not recommended for inpatient use d/t drug interactions, changing PO intake, and difficulty titrating for acute hyper/hypoglycemia. ADA recommends re-initiating outpatient oral agents 1-2 days prior to discharge if/ when appropriate if they were held on admission. * ADA & AACE recommend a goal blood sugar range 140-180 mg/dl for the majority of critically ill & non-critically ill patients. However, more stringent targets may be selected in individual cases. Will utilize more stringent goal of 110-140mg/dl based on patient age & comorbidities. Additionally, tighter glycemic control is warranted to facilitate wound/infection healing. 11/14/16 * Fasting BSG 73 mg/dL * Patient initiated on dextrose containing fluids this AM and Lantus held due to patient going to OR * She is now hypotensive and transferred to ICU on pressors * Given addition of pressors and ICU status, would not hesitate to initiate insulin drip * wants to redraw labs and make that decision in the next hour * If continuing basal/bolus, continue current regimen with additional checks * I anticipate BSGs to climb and will have evening pharmacist make changes if necessary 11/15/16 * Overnight, BSGs continued to climb and insulin drip was started per Severe stress protocol * This morning, spoke with provider, patient looking much better, advanced to clear liquid diet * Plan to transition off insulin drip back to basal/bolus regimen * Give Lantus 12 units X 1 now, then re-dose tonight based on BSG * Re-initiate similar Novolog coverage and reassess patient in 24 hours PLAN FOR INPATIENT GLYCEMIC CONTROL: * D/C insulin drip when held per calculator or 6 hour after Lantus dose given, whichever happens sooner * Give Lantus 12 units X 1 now (reduced dose for clear liquid diet, wt based/ stress 1.5) * Continue Lantus per scale * If BSG <100 mg/dL HOLD * If BSG 101-180 mg/dL, give Lantus 8 units * If BSG >181 mg/dL, give Lantus 16 units * Novolog ACHS + 00,04 * Goal range: Low 140 mg/dL - High 180 mg/dL * Correction Factor: 25 mg/dL/unit * Carb ratio: 1 unit per 8 g CHO consumed * Please note that the plan above was derived based on current level of insulin resistance and hospital stress. These recommendations are appropriate for inpatient admission only. Plan of care upon discharge will need to be reassessed to avoid potential outpatient hypo/hyperglycemia. Thank you.
[2016-11-15 12:19] LABS: HEMATOCRIT 24.2 % (37-47); MEAN CORPUSCULAR HEMOGLOBIN 29.9 pg (25-34); MEAN CORPUSCULAR HGB CONC 35.5 g/dl (32-36); MEAN PLATELET VOLUME 9.2 fL (7.4-10.4); PLATELET COUNT 290 K/uL (130-400); RED BLOOD COUNT 2.88 M/uL (4.2-5.4); WHITE BLOOD COUNT 26.31 K/uL (4.8-10.8)
[2016-11-15 12:36] LABS: BUN/CREATININE RATIO 18.1 (10-20); CALCIUM 7.1 mg/dl (8.5-10.1); CREATININE 1.2 mg/dl (0.60-1.20); POTASSIUM 3.9 mmol/L (3.5-5.1)
[2016-11-15 12:39] LABS: ALB/GLOB RATIO 0.4 (0.9-2); PHOSPHORUS 4.1 mg/dl (2.5-4.9)
[2016-11-15 12:47] LABS: COMPLETE YES; EOSINOPHIL % 0.9 %; LYMPHOCYTE % 6.1 %; META ABS # 0.24 K/uL (0-0); METAMYELOCYTE % 0.9 %; NEUTROPHILS % 90.4 %
[2016-11-15] MEDS: DAPTOmycin IV 600 MG in SODIUM CHLORIDE 0.9% 50ML 50 ML IV SCH (14:22)
[2016-11-15] MEDS: MoRPHine SULFATE 4 MG/ML 1 ML CARP\\VIAL IV PRN ×2 (14:24→19:43)
[2016-11-15] MEDS ORDERED: NURSING VERBAL MED ORDER ONE (16:15)
[2016-11-15] MEDS: INSULIN ASPART 100 UNITS/ML 3 ML PEN SC SCH ×2 (16:58→20:54)
--- NOTE | 2016-11-15 18:24 | Critical Care Progress Note ---
Critical Care Progress Note Date of Service Nov 15, 2016. Attending Dr. Quiroz Subjective Overnight she had rapid a-fib, up to 190/min. responded to amiodarone bolus and drip, now off Had no pulse in the left foot last night, confirmed by a lack of blood flow by arterial doppler. However, it improved overnight as she came off pressors and the left foot was actively warmed up She feels better today, still with some postsurgical pain Urine output remain minimal, only now started to improve slowly Objective General: Comfortable in bed today, awake Heent: NC/AT CVS: S1S2 regular, no murmurs Lungs: CTA b/l Abdomen: Soft, NT, ND Ext: Right BKA. Left lower extremity: Dopplerable DP and PT pulses, foot is warmer, no cyanosis. No foot tenderness. Dressing over the left knee, with some tenderness and ecchymosis. Hemovac drain. 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 She had a prolonged hospital course with sepsis secondary to MRSA bacteremia, right foot necrosis requiring below-knee amputation and bilateral DVT with IVC filter placement . She was discharged to [facility] on IV daptomycin via her PICC line. She presented to orthopedic office with increasing pain and drainage from the left knee. She was taken to the OR on 11/14/16 after left knee aspiration was concerning for septic arthritis. Underwent removal of the implants with insertion of antibiotic spacer. During the surgery she became hypotensive and was started on pressors. Was aggressively resuscitated with crystalloid, neosynephrine changed to Levophed. Receive 2 units PRBC yesterday. Now off pressors, in and out of a-fib, but rate controlled Problems: Septic shock with GPC- extremely likely MRSA just like in the joint Oliguric kidney disease A-fib with RVR S/p left knee removal of implants with insertion of antibiotic spacer. DM-2, s/p DKA yesterday DVT,s/p IVC filter Peripheral vascular disease S/p right BKA Plan: [employer]: as needed Morphine. Pain is better today Pulmonary: Stable, no active issues CVS: Out of shock, off pressors. HR greatly improved, may stay off amiodarone. She developed severe rapid ventricular response. For now she cannot receive anticoagulation in the light of the recent surgery Start metoprolol today On ASA Has significant PVD, worsened by the shock, pressors. Now improved, pulses regained, no need for intervention ID: Continue Daptomycin Bacteremic now with GPCmelanie MRSA Started Azactam yesterday in the face of fulminant septic shock to cover GNR. Has Citrobacter UTI, pansensitive. Patient has a long list of allergies, will continue Azactam for now WBC trending down, lactate normalized. In my opinion, such brisk, severe leukocytosis would be explained by generalized, mesenteric low flow state, with significant elevation of lactate, improved with hydration. Ischemic limb does not typically present this way in my experience, especially with only borderline CPK Antibiotic spacer inserted. Patient at risk for eventual left AKA if her infection does not resolve Renal/metabolic: Oliguric ANNETTE. Continue hydration, monitor urine output. Hopefully she'll avoid hemodialysis Heme: Has an IVC filter for prior DVT. May need full anticoagulation eventually, if she is not mobile is at less risk for fall. S/p 2 units PRBC 90ml drainage today from the left knee Endo: Glucose improved, off insulin drip, AG closed. On Aspart sliding scale, Lantus pen GI: Tolerating diet DVT prophylaxis: start SC heparin Consults & Procedures Consultants: Ortho - Dr Ibarra ID: Dr Wiggins Vascular - Dr Botello Cardiology - Dr Winston Procedures: 11/14/16 - Left knee implant removal with antibiotic spacer Right radial a-line Righ IJ TLC Data Medications: Current Inpatient Medications Medications (Trade) Dose Ordered Sig/Denisse Route Start Time Stop Time Status Last Admin Dose Admin Pantoprazole Sodium (Protonix Tab) 40 mg QAM PO 11/14/16 09:00 12/14/16 08:59 11/15/16 09:06 40 MG Acetaminophen (Tylenol Tab) 650 mg Q4H PRN PO 11/13/16 13:00 12/13/16 12:59 11/13/16 23:43 650 MG Docusate Sodium (coLACE CAP) 100 mg BID PO 11/13/16 21:00 12/13/16 20:59 11/15/16 08:41 100 MG Folic Acid (Folvite Tab) 1 mg DAILY PO 11/14/16 09:00 12/14/16 08:59 11/15/16 09:06 1 MG Tramadol HCl (Ultram Tab) 50 mg Q4H PRN PO 11/13/16 13:00 12/13/16 12:59 11/13/16 23:43 50 MG Morphine Sulfate (MoRPHine SULFATE INJ) 2 mg Q4H PRN IV 11/13/16 13:30 11/27/16 13:29 11/15/16 10:37 2 MG Morphine Sulfate (MoRPHine SULFATE INJ) 4 mg Q4H PRN IV 11/13/16 13:30 11/27/16 13:29 11/15/16 14:24 4 MG Morphine Sulfate 6 mg 6 mg Q4H PRN IV 11/13/16 13:30 11/27/16 13:29 Daptomycin/Sodium Chloride (Cubicin IV/Nss 50ml) 62 ml @ 120 mls/hr Q24H IV 11/13/16 14:00 12/25/16 13:59 11/15/16 14:22 120 MLS/HR Glucose (Glucose 40% Gel) 15-30 GRAMS 15 GRAMS... UD PRN PO 11/13/16 14:30 12/13/16 14:29 Glucose (Glucose Chew Tab) 4-8 Tablets 4 Tabl... UD PRN PO 11/13/16 14:30 12/13/16 14:29 Dextrose (Dextrose 50% 50ML Syringe) 25-50ML OF 50% DW IV FOR... UD PRN IV 11/13/16 14:30 12/13/16 14:29 Glucagon (Glucagon Inj) 1 mg UD PRN SQ 11/13/16 14:30 12/13/16 14:29 Oxycodone HCl (Roxicodone Immediate Rel Tab) 1 TABLET FOR PAIN RATING... Q4H PRN PO 11/14/16 11:45 11/28/16 11:44 Magnesium Hydroxide (Milk Of Magnesia Susp) 30 ml Q6H PRN PO 11/14/16 11:45 12/14/16 11:44 Bisacodyl (Dulcolax Supp) 10 mg DAILY PRN CA 11/14/16 11:45 12/14/16 11:44 Senna (Senokot Tab) 17.2 mg HS PO 11/14/16 21:00 12/14/16 20:59 11/14/16 21:26 17.2 MG Diphenhydramine HCl (Benadryl Inj) 25 mg Q8H PRN IV 11/14/16 11:45 12/14/16 11:44 Al Hydrox/Mg Hydrox/Simethicone (Maalox Max Susp) 15 ml Q4H PRN PO 11/14/16 11:45 12/14/16 11:44 Multivitamins (Multivitamin Tab) 1 tab QAM PO 11/15/16 09:00 12/15/16 08:59 11/15/16 09:06 1 TAB Ondansetron HCl (Zofran Inj) 4 mg Q6H PRN IV 11/14/16 11:45 12/14/16 11:44 11/14/16 16:03 4 MG Ferrous Gluconate (Ferrous Gluconate Tab) 324 mg TIDM PO 11/14/16 12:30 12/14/16 12:29 11/15/16 15:43 324 MG Aspirin 81 mg 81 mg BID PO 11/14/16 21:00 12/14/16 20:59 11/15/16 08:41 81 MG Phenylephrine HCl 20 mg/Dextrose 502 ml @ 0 mls/hr Q0M PRN IV 11/14/16 14:15 12/14/16 14:14 Norepinephrine Bitartrate 8 mg/ Dextrose 508 ml @ 0 mls/hr Q0M PRN IV 11/14/16 14:14 12/14/16 14:13 11/14/16 14:39 37.5 MLS/HR Sodium Chloride 1,000 ml @ 150 mls/hr Q6H40M IV 11/14/16 15:15 12/14/16 15:14 11/15/16 15:43 150 MLS/HR Aztreonam/Dextrose (Azactam IV/D5 100ml) 110 ml @ 100 mls/hr Q8@0000,0800,1600 IV 11/14/16 17:00 11/24/16 15:59 11/15/16 15:43 100 MLS/HR Miscellaneous Information (Consult Glycemic Management Pharmacy) 1 ea UD PRN N/A 11/14/16 21:30 12/14/16 21:29 Heparin Sodium (Porcine) (Heparin 10 Unit/ ml 5 ml Flush) 5 ml PRN PRN FLUSH 11/15/16 01:30 12/15/16 01:29 Insulin Glargine (Lantus Solostar Pen) see protocol text BID SC 11/15/16 21:00 12/15/16 20:59 Insulin Aspart (novoLOG ASPART) SLIDING SCALE ACHS SC 11/15/16 16:00 12/15/16 15:59 I & O: 24-Hour Column 11/15/16 08:00 Intake Total 7137 ml Output Total 865 ml Balance 6272 ml Vital Signs: Date Time Temp Pulse Resp B/P Pulse Ox O2 Delivery O2 Flow Rate FiO2 11/15/16 16:00 36.4 101 23 149/69 92 Room Air 158/60 11/15/16 16:00 Room Air 11/15/16 14:00 36.4 84 16 161/50 93 Room Air 152/71 11/15/16 12:00 Room Air 11/15/16 08:00 Room Air 11/15/16 06:00 82 20 129/45 95 Room Air 116/62 11/15/16 05:34 36.4 83 17 141/50 97 11/15/16 04:45 84 18 124/47 95 11/15/16 04:00 36.4 84 15 117/61 92 Room Air 113/60 11/15/16 04:00 Room Air 11/15/16 03:45 86 20 124/45 100 3.0 11/15/16 03:45 86 20 124/45 100 11/15/16 03:30 36.4 86 19 119/44 98 3.0 11/15/16 03:18 36.4 90 19 108/63 98 3.0 11/15/16 02:00 92 19 113/44 100 Nasal Cannula 3.0 96/55 11/15/16 00:30 102 20 105/41 98 Nasal Cannula 3.0 87/53 4/8/17 00:01 Nasal Cannula 3.0 11/15/16 00:00 36.4 103 21 105/41 97 Nasal Cannula 3.0 89/55 11/14/16 23:30 97 21 148/52 97 Nasal Cannula 3.0 113/82 11/14/16 23:00 119 23 143/55 96 Nasal Cannula 3.0 93/66 11/14/16 22:30 111 21 143/51 98 Nasal Cannula 3.0 116/68 11/14/16 22:05 120 16 119/52 97 11/14/16 22:00 Nasal Cannula 3.0 130/96 11/14/16 22:00 123 22 199/74 99 11/14/16 21:53 144 15 141/54 96 11/14/16 21:50 148 26 134/56 96 11/14/16 21:45 150 17 184/65 98 Nasal Cannula 3.0 73/56 11/14/16 21:42 174 22 122/53 11/14/16 21:35 143 0 187/56 99 11/14/16 21:32 131 22 154/48 99 Nasal Cannula 3.0 88/70 11/14/16 21:00 123 24 149/47 100 Nasal Cannula 3.0 109/67 11/14/16 20:43 123 28 139/54 99 Nasal Cannula 3.0 121/62 11/14/16 20:15 125 26 135/52 100 Nasal Cannula 3.0 110/79 11/14/16 20:05 127 19 94/46 90 11/14/16 20:00 134/66 Nasal Cannula 3.0 11/14/16 20:00 94 Nasal Cannula 5.0 11/14/16 20:00 35.7 127 24 144/56 99 11/14/16 19:50 155 21 137/57 97 11/14/16 19:45 142 21 140/0 99 Nasal Cannula 3.0 104/67 11/14/16 19:30 126 17 127/41 97 Nasal Cannula 3.0 127/115 11/14/16 19:15 127 16 98/40 96 Nasal Cannula 3.0 108/80 11/14/16 19:00 124 19 107/39 97 Nasal Cannula 3.0 141/64 11/14/16 18:45 122 12 89/37 94 11/14/16 18:30 125 24 113/44 97 11/14/16 18:15 118 12 123/43 100 11/14/16 18:00 115 14 104/41 99 11/14/16 17:45 129 12 98/66 99 11/14/16 17:30 106 17 111/41 99 11/14/16 17:15 114 23 108/43 100 11/14/16 17:01 116 23 106/41 97 11/14/16 17:00 115 17 93/36 99 Laboratory Results: Last 24 Hours Test 11/14/16 17:29 11/14/16 18:23 11/14/16 21:23 11/14/16 21:27 Bedside Glucose 293 mg/dl White Blood Count 45.57 K/uL Red Blood Count 3.44 M/uL Hemoglobin 10.2 g/dL Hematocrit 30.1 % Mean Corpuscular Volume 87.5 fL Mean Corpuscular Hemoglobin 29.7 pg Mean Corpuscular Hemoglobin Concent 33.9 g/dl Platelet Count 462 K/uL Mean Platelet Volume 9.5 fL RDW Standard Deviation 49.6 fL RDW Coefficient of Variation 15.3 % Neutrophils % (Manual) 95.6 % Lymphocytes % (Manual) 0.9 % Monocytes % (Manual) 0.9 % Metamyelocytes % 0.9 % Myelocytes % 1.7 % Neutrophils # (Manual) 43.56 K/uL Total Absolute Neutrophils 43.56 K/uL Lymphocytes # (Manual) 0.41 K/uL Total Absolute Lymphocytes 0.41 K/uL Monocytes # (Manual) 0.41 K/uL Metamyelocytes # 0.41 K/uL Myelocytes # 0.77 K/uL Dohle Bodies OCCASIONAL Red Blood Cell Morphology Unremarkable Prothrombin Time 16.1 SECONDS Prothromb Time International Ratio 1.5 Activated Partial Thromboplast Time 44.3 SECONDS Partial Thromboplastin Ratio 1.7 Sodium Level 132 mmol/L Potassium Level 4.9 mmol/L Chloride Level 101 mmol/L Carbon Dioxide Level 15 mmol/L Anion Gap 16.0 mmol/L Blood Urea Nitrogen 13 mg/dl Creatinine 1.10 mg/dl Est Creatinine Clear Calc Drug Dose 58.1 ml/min Estimated GFR () 60.2 Estimated GFR (Non- 51.9 BUN/Creatinine Ratio 12.0 Random Glucose 392 mg/dl Lactic Acid Level 6.3 mmol/L 2.9 mmol/L Calcium Level 7.4 mg/dl Ionized Calcium 0.98 mmol/l Phosphorus Level 6.4 mg/dl Magnesium Level 1.6 mg/dl Total Bilirubin 0.9 mg/dl Aspartate Amino Transf (AST/SGOT) 142 U/L Alanine Aminotransferase (ALT/SGPT) 24 U/L Alkaline Phosphatase 109 U/L Total Creatine Kinase 167 U/L Total Protein 5.8 gm/dl Albumin 1.5 gm/dl Globulin 4.3 gm/dl Albumin/Globulin Ratio 0.3 Beta-Hydroxybutyric Acid 17.88 mg/dL Bedside Glucose (other) 432 mg/dl Test 11/14/16 22:13 11/14/16 22:20 11/14/16 22:24 11/14/16 23:34 Bedside Glucose (other) 438 mg/dl 394 mg/dl White Blood Count 37.86 K/uL Red Blood Count 3.24 M/uL Hemoglobin 9.2 g/dL Hematocrit 27.5 % Mean Corpuscular Volume 84.9 fL Mean Corpuscular Hemoglobin 28.4 pg Mean Corpuscular Hemoglobin Concent 33.5 g/dl Platelet Count 461 K/uL Mean Platelet Volume 9.5 fL RDW Standard Deviation 48.5 fL RDW Coefficient of Variation 15.7 % Neutrophils % (Manual) 80.7 % Lymphocytes % (Manual) 4.4 % Monocytes % (Manual) 2.6 % Metamyelocytes % 7.9 % Myelocytes % 4.4 % Neutrophils # (Manual) 30.55 K/uL Total Absolute Neutrophils 30.55 K/uL Lymphocytes # (Manual) 1.67 K/uL Total Absolute Lymphocytes 1.67 K/uL Monocytes # (Manual) 0.98 K/uL Metamyelocytes # 2.99 K/uL Myelocytes # 1.67 K/uL Red Blood Cell Morphology Unremarkable Prothrombin Time 15.5 SECONDS Prothromb Time International Ratio 1.4 Activated Partial Thromboplast Time 42.4 SECONDS Partial Thromboplastin Ratio 1.6 Sodium Level 132 mmol/L Potassium Level 4.3 mmol/L Chloride Level 99 mmol/L Carbon Dioxide Level 18 mmol/L Anion Gap 15.0 mmol/L Blood Urea Nitrogen 17 mg/dl Creatinine 1.20 mg/dl Est Creatinine Clear Calc Drug Dose 53.3 ml/min Estimated GFR () 54.2 Estimated GFR (Non- 46.7 BUN/Creatinine Ratio 13.8 Random Glucose 441 mg/dl Calcium Level 8.2 mg/dl Phosphorus Level 5.8 mg/dl Magnesium Level 2.1 mg/dl Total Bilirubin 0.8 mg/dl Aspartate Amino Transf (AST/SGOT) 91 U/L Alanine Aminotransferase (ALT/SGPT) 32 U/L Alkaline Phosphatase 99 U/L Total Creatine Kinase 144 U/L Total Protein 5.5 gm/dl Albumin 1.4 gm/dl Globulin 4.1 gm/dl Albumin/Globulin Ratio 0.3 Beta-Hydroxybutyric Acid 16.64 mg/dL Blood Gas Sample Site Art Line Bedside Blood Gas pH (LAB) 7.34 Bedside Blood Gas pCO2 (LAB) 29 mmHg Bedside Blood Gas pO2 (LAB) 92 mmHg Bedside Blood Gas HCO3 (LAB) 16 meq/L Bedside Blood Gas Total CO2 17 mEq/l Bedside Blood Gas Base Excess (LAB) -10.0 meq/L Bedside Blood Gas O2 Saturation 97.0 % All Test NA Oxygen Delivery Device Cannula Test 11/14/16 23:53 11/15/16 00:34 11/15/16 00:38 11/15/16 01:32 Venous Blood pH 7.36 Sodium Level 135 mmol/L 135 mmol/L Potassium Level 3.9 mmol/L 4.0 mmol/L Chloride Level 104 mmol/L 103 mmol/L Carbon Dioxide Level 20 mmol/L 20 mmol/L Anion Gap 11.0 mmol/L 12.0 mmol/L Blood Urea Nitrogen 15 mg/dl 16 mg/dl Creatinine 1.20 mg/dl 1.30 mg/dl Est Creatinine Clear Calc Drug Dose 53.3 ml/min 49.2 ml/min Estimated GFR () 54.2 49.2 Estimated GFR (Non- 46.7 42.4 BUN/Creatinine Ratio 12.7 12.5 Random Glucose 361 mg/dl 345 mg/dl Calcium Level 7.5 mg/dl 7.4 mg/dl Phosphorus Level 5.0 mg/dl 4.8 mg/dl Magnesium Level 2.0 mg/dl 2.0 mg/dl Beta-Hydroxybutyric Acid 4.26 mg/dL 2.02 mg/dL White Blood Count 26.54 K/uL Red Blood Count 2.60 M/uL Hemoglobin 7.7 g/dL Hematocrit 21.9 % Mean Corpuscular Volume 84.2 fL Mean Corpuscular Hemoglobin 29.6 pg Mean Corpuscular Hemoglobin Concent 35.2 g/dl Platelet Count 300 K/uL Mean Platelet Volume 9.1 fL RDW Standard Deviation 48.8 fL RDW Coefficient of Variation 15.8 % Neutrophils % (Manual) 93.1 % Lymphocytes % (Manual) 2.6 % Monocytes % (Manual) 1.7 % Metamyelocytes % 2.6 % Neutrophils # (Manual) 24.71 K/uL Total Absolute Neutrophils 24.71 K/uL Lymphocytes # (Manual) 0.69 K/uL Total Absolute Lymphocytes 0.69 K/uL Monocytes # (Manual) 0.45 K/uL Metamyelocytes # 0.69 K/uL Polychromasia 1+ Lactic Acid Level 2.5 mmol/L Ionized Calcium 1.11 mmol/l Total Bilirubin 0.5 mg/dl Aspartate Amino Transf (AST/SGOT) 67 U/L Alanine Aminotransferase (ALT/SGPT) 30 U/L Alkaline Phosphatase 86 U/L Total Protein 4.7 gm/dl Albumin 1.2 gm/dl Globulin 3.5 gm/dl Albumin/Globulin Ratio 0.3 Bedside Glucose 398 mg/dl 299 mg/dl Test 11/15/16 02:33 11/15/16 03:39 11/15/16 04:39 11/15/16 05:24 Bedside Glucose 265 mg/dl 251 mg/dl 213 mg/dl 202 mg/dl Test 11/15/16 06:28 11/15/16 07:00 11/15/16 07:31 11/15/16 08:14 Bedside Glucose 165 mg/dl 135 mg/dl White Blood Count 26.25 K/uL Red Blood Count 3.03 M/uL Hemoglobin 8.9 g/dL Hematocrit 25.6 % Mean Corpuscular Volume 84.5 fL Mean Corpuscular Hemoglobin 29.4 pg Mean Corpuscular Hemoglobin Concent 34.8 g/dl Platelet Count 300 K/uL Mean Platelet Volume 9.3 fL Neutrophils (%) (Auto) 83.5 % Lymphocytes (%) (Auto) 6.8 % Monocytes (%) (Auto) 5.3 % Eosinophils (%) (Auto) 0.1 % Basophils (%) (Auto) 0.2 % Neutrophils # (Auto) 21.92 K/uL Lymphocytes # (Auto) 1.79 K/uL Monocytes # (Auto) 1.39 K/uL Eosinophils # (Auto) 0.02 K/uL Basophils # (Auto) 0.06 K/uL RDW Standard Deviation 48.5 fL RDW Coefficient of Variation 15.6 % Immature Granulocyte % (Auto) 4.1 % Immature Granulocyte # (Auto) 1.07 K/uL Venous Blood pH 7.40 Sodium Level 135 mmol/L Potassium Level 3.9 mmol/L Chloride Level 104 mmol/L Carbon Dioxide Level 21 mmol/L Anion Gap 10.0 mmol/L Blood Urea Nitrogen 19 mg/dl Creatinine 1.30 mg/dl Est Creatinine Clear Calc Drug Dose 47.8 ml/min Estimated GFR () 49.2 Estimated GFR (Non- 42.4 BUN/Creatinine Ratio 14.3 Random Glucose 159 mg/dl Lactic Acid Level 1.8 mmol/L Calcium Level 7.5 mg/dl Ionized Calcium 1.08 mmol/l Phosphorus Level 4.4 mg/dl Magnesium Level 2.2 mg/dl Total Bilirubin 0.4 mg/dl Aspartate Amino Transf (AST/SGOT) 47 U/L Alanine Aminotransferase (ALT/SGPT) 32 U/L Alkaline Phosphatase 86 U/L Total Protein 5.1 gm/dl Albumin 1.3 gm/dl Globulin 3.8 gm/dl Albumin/Globulin Ratio 0.3 Blood Gas Sample Site Art Line Bedside Blood Gas pH (LAB) 7.38 Bedside Blood Gas pCO2 (LAB) 31 mmHg Bedside Blood Gas pO2 (LAB) 69 mmHg Bedside Blood Gas HCO3 (LAB) 19 meq/L Bedside Blood Gas Total CO2 20 mEq/l Bedside Blood Gas Base Excess (LAB) -7.0 meq/L Bedside Blood Gas O2 Saturation 94.0 % All Test NA Oxygen Delivery Device Room Air Test 11/15/16 08:28 11/15/16 08:45 11/15/16 09:34 11/15/16 10:32 Bedside Glucose 130 mg/dl 118 mg/dl 115 mg/dl Sodium Level 134 mmol/L Potassium Level 3.9 mmol/L Chloride Level 104 mmol/L Carbon Dioxide Level 21 mmol/L Anion Gap 9.0 mmol/L Blood Urea Nitrogen 21 mg/dl Creatinine 1.30 mg/dl Est Creatinine Clear Calc Drug Dose 47.8 ml/min Estimated GFR () 49.2 Estimated GFR (Non- 42.4 BUN/Creatinine Ratio 16.0 Random Glucose 122 mg/dl Calcium Level 7.3 mg/dl Phosphorus Level 4.2 mg/dl Magnesium Level 2.0 mg/dl Test 11/15/16 11:31 11/15/16 12:11 11/15/16 16:11 Bedside Glucose 110 mg/dl 108 mg/dl White Blood Count 26.31 K/uL Red Blood Count 2.88 M/uL Hemoglobin 8.6 g/dL Hematocrit 24.2 % Mean Corpuscular Volume 84.0 fL Mean Corpuscular Hemoglobin 29.9 pg Mean Corpuscular Hemoglobin Concent 35.5 g/dl Platelet Count 290 K/uL Mean Platelet Volume 9.2 fL RDW Standard Deviation 48.9 fL RDW Coefficient of Variation 15.8 % Nucleated RBC Absolute Count (auto) 0.03 K/uL Neutrophils % (Manual) 90.4 % Lymphocytes % (Manual) 6.1 % Monocytes % (Manual) 1.7 % Eosinophils % (Manual) 0.9 % Metamyelocytes % 0.9 % Nucleated Red Blood Cells % 0.1 % Neutrophils # (Manual) 23.78 K/uL Total Absolute Neutrophils 23.78 K/uL Lymphocytes # (Manual) 1.60 K/uL Total Absolute Lymphocytes 1.60 K/uL Monocytes # (Manual) 0.45 K/uL Eosinophils # (Manual) 0.24 K/uL Metamyelocytes # 0.24 K/uL Red Blood Cell Morphology Unremarkable Sodium Level 135 mmol/L Potassium Level 3.9 mmol/L Chloride Level 104 mmol/L Carbon Dioxide Level 21 mmol/L Anion Gap 10.0 mmol/L Blood Urea Nitrogen 22 mg/dl Creatinine 1.20 mg/dl Est Creatinine Clear Calc Drug Dose 51.7 ml/min Estimated GFR () 54.2 Estimated GFR (Non- 46.7 BUN/Creatinine Ratio 18.1 Random Glucose 100 mg/dl Lactic Acid Level 1.1 mmol/L Calcium Level 7.1 mg/dl Phosphorus Level 4.1 mg/dl Magnesium Level 2.0 mg/dl Total Bilirubin 0.3 mg/dl Aspartate Amino Transf (AST/SGOT) 36 U/L Alanine Aminotransferase (ALT/SGPT) 27 U/L Alkaline Phosphatase 87 U/L Total Creatine Kinase 116 U/L Total Protein 5.0 gm/dl Albumin 1.3 gm/dl Globulin 3.7 gm/dl Albumin/Globulin Ratio 0.4 04/07/17 - arterial ultrasound IMPRESSION: 1. No flow identified within the anterior tibial and dorsalis pedis artery consistent with occlusion. 2. No flow identified within the mid to distal peroneal artery and proximal to mid left posterior tibial artery. Trace monophasic flow seen within the proximal peroneal artery and distal posterior tibial artery. 3. Progression of the left lower extremity acute DVT as described above. 4. The left popliteal vein and artery were unable to be visualized due to the patient's recent knee surgery.
--- NOTE | 2016-11-15 18:36 | Progress Note ---
Medicine Progress Note Date & Time of Visit: Nov 15, 2016 at 18:30. Subjective Several events overnight. Went into A fib with RVR and started on amiodarone drip. No pulse in left foot overnight but returned this am. Vascular evaluated patient and no intervention. Pain controlled with current regimen. Objective Last 8 Hrs Date Time Temp Pulse Resp B/P Pulse Ox O2 Delivery O2 Flow Rate FiO2 11/15/16 18:00 36.4 97 23 171/50 92 Room Air 114/66 11/15/16 16:00 36.4 101 23 149/69 92 Room Air 158/60 11/15/16 16:00 Room Air 11/15/16 14:00 36.4 84 16 161/50 93 Room Air 152/71 11/15/16 12:00 Room Air 11/15/16 12:00 36.4 78 17 148/48 93 Room Air 117/65 Physical Exam: General-awake; alert; NAD Eyes-EOMI; no scleral icterus Neck-no stridor; trachea midline Lungs-CTA bilaterally anteriorly Heart-irregularly irregular; no m/r/g Abdomen-soft; NTND; nBS Extremities-left leg bandage c/d/i Neuro-unable to fully assess Laboratory Results: Last 24 Hours Test 11/14/16 21:23 11/14/16 21:27 11/14/16 22:13 11/14/16 22:20 Lactic Acid Level 2.9 mmol/L Bedside Glucose (other) 432 mg/dl 438 mg/dl White Blood Count 37.86 K/uL Red Blood Count 3.24 M/uL Hemoglobin 9.2 g/dL Hematocrit 27.5 % Mean Corpuscular Volume 84.9 fL Mean Corpuscular Hemoglobin 28.4 pg Mean Corpuscular Hemoglobin Concent 33.5 g/dl Platelet Count 461 K/uL Mean Platelet Volume 9.5 fL RDW Standard Deviation 48.5 fL RDW Coefficient of Variation 15.7 % Neutrophils % (Manual) 80.7 % Lymphocytes % (Manual) 4.4 % Monocytes % (Manual) 2.6 % Metamyelocytes % 7.9 % Myelocytes % 4.4 % Neutrophils # (Manual) 30.55 K/uL Total Absolute Neutrophils 30.55 K/uL Lymphocytes # (Manual) 1.67 K/uL Total Absolute Lymphocytes 1.67 K/uL Monocytes # (Manual) 0.98 K/uL Metamyelocytes # 2.99 K/uL Myelocytes # 1.67 K/uL Red Blood Cell Morphology Unremarkable Prothrombin Time 15.5 SECONDS Prothromb Time International Ratio 1.4 Activated Partial Thromboplast Time 42.4 SECONDS Partial Thromboplastin Ratio 1.6 Sodium Level 132 mmol/L Potassium Level 4.3 mmol/L Chloride Level 99 mmol/L Carbon Dioxide Level 18 mmol/L Anion Gap 15.0 mmol/L Blood Urea Nitrogen 17 mg/dl Creatinine 1.20 mg/dl Est Creatinine Clear Calc Drug Dose 53.3 ml/min Estimated GFR () 54.2 Estimated GFR (Non- 46.7 BUN/Creatinine Ratio 13.8 Random Glucose 441 mg/dl Calcium Level 8.2 mg/dl Phosphorus Level 5.8 mg/dl Magnesium Level 2.1 mg/dl Total Bilirubin 0.8 mg/dl Aspartate Amino Transf (AST/SGOT) 91 U/L Alanine Aminotransferase (ALT/SGPT) 32 U/L Alkaline Phosphatase 99 U/L Total Creatine Kinase 144 U/L Total Protein 5.5 gm/dl Albumin 1.4 gm/dl Globulin 4.1 gm/dl Albumin/Globulin Ratio 0.3 Beta-Hydroxybutyric Acid 16.64 mg/dL Test 11/14/16 22:24 11/14/16 23:34 11/14/16 23:53 11/15/16 00:34 Blood Gas Sample Site Art Line Bedside Blood Gas pH (LAB) 7.34 Bedside Blood Gas pCO2 (LAB) 29 mmHg Bedside Blood Gas pO2 (LAB) 92 mmHg Bedside Blood Gas HCO3 (LAB) 16 meq/L Bedside Blood Gas Total CO2 17 mEq/l Bedside Blood Gas Base Excess (LAB) -10.0 meq/L Bedside Blood Gas O2 Saturation 97.0 % All Test NA Oxygen Delivery Device Cannula Bedside Glucose (other) 394 mg/dl Venous Blood pH 7.36 Sodium Level 135 mmol/L 135 mmol/L Potassium Level 3.9 mmol/L 4.0 mmol/L Chloride Level 104 mmol/L 103 mmol/L Carbon Dioxide Level 20 mmol/L 20 mmol/L Anion Gap 11.0 mmol/L 12.0 mmol/L Blood Urea Nitrogen 15 mg/dl 16 mg/dl Creatinine 1.20 mg/dl 1.30 mg/dl Est Creatinine Clear Calc Drug Dose 53.3 ml/min 49.2 ml/min Estimated GFR () 54.2 49.2 Estimated GFR (Non- 46.7 42.4 BUN/Creatinine Ratio 12.7 12.5 Random Glucose 361 mg/dl 345 mg/dl Calcium Level 7.5 mg/dl 7.4 mg/dl Phosphorus Level 5.0 mg/dl 4.8 mg/dl Magnesium Level 2.0 mg/dl 2.0 mg/dl Beta-Hydroxybutyric Acid 4.26 mg/dL 2.02 mg/dL White Blood Count 26.54 K/uL Red Blood Count 2.60 M/uL Hemoglobin 7.7 g/dL Hematocrit 21.9 % Mean Corpuscular Volume 84.2 fL Mean Corpuscular Hemoglobin 29.6 pg Mean Corpuscular Hemoglobin Concent 35.2 g/dl Platelet Count 300 K/uL Mean Platelet Volume 9.1 fL RDW Standard Deviation 48.8 fL RDW Coefficient of Variation 15.8 % Neutrophils % (Manual) 93.1 % Lymphocytes % (Manual) 2.6 % Monocytes % (Manual) 1.7 % Metamyelocytes % 2.6 % Neutrophils # (Manual) 24.71 K/uL Total Absolute Neutrophils 24.71 K/uL Lymphocytes # (Manual) 0.69 K/uL Total Absolute Lymphocytes 0.69 K/uL Monocytes # (Manual) 0.45 K/uL Metamyelocytes # 0.69 K/uL Polychromasia 1+ Lactic Acid Level 2.5 mmol/L Ionized Calcium 1.11 mmol/l Total Bilirubin 0.5 mg/dl Aspartate Amino Transf (AST/SGOT) 67 U/L Alanine Aminotransferase (ALT/SGPT) 30 U/L Alkaline Phosphatase 86 U/L Total Protein 4.7 gm/dl Albumin 1.2 gm/dl Globulin 3.5 gm/dl Albumin/Globulin Ratio 0.3 Test 11/15/16 00:38 11/15/16 01:32 11/15/16 02:33 11/15/16 03:39 Bedside Glucose 398 mg/dl 299 mg/dl 265 mg/dl 251 mg/dl Test 11/15/16 04:39 11/15/16 05:24 11/15/16 06:28 11/15/16 07:00 Bedside Glucose 213 mg/dl 202 mg/dl 165 mg/dl White Blood Count 26.25 K/uL Red Blood Count 3.03 M/uL Hemoglobin 8.9 g/dL Hematocrit 25.6 % Mean Corpuscular Volume 84.5 fL Mean Corpuscular Hemoglobin 29.4 pg Mean Corpuscular Hemoglobin Concent 34.8 g/dl Platelet Count 300 K/uL Mean Platelet Volume 9.3 fL Neutrophils (%) (Auto) 83.5 % Lymphocytes (%) (Auto) 6.8 % Monocytes (%) (Auto) 5.3 % Eosinophils (%) (Auto) 0.1 % Basophils (%) (Auto) 0.2 % Neutrophils # (Auto) 21.92 K/uL Lymphocytes # (Auto) 1.79 K/uL Monocytes # (Auto) 1.39 K/uL Eosinophils # (Auto) 0.02 K/uL Basophils # (Auto) 0.06 K/uL RDW Standard Deviation 48.5 fL RDW Coefficient of Variation 15.6 % Immature Granulocyte % (Auto) 4.1 % Immature Granulocyte # (Auto) 1.07 K/uL Venous Blood pH 7.40 Sodium Level 135 mmol/L Potassium Level 3.9 mmol/L Chloride Level 104 mmol/L Carbon Dioxide Level 21 mmol/L Anion Gap 10.0 mmol/L Blood Urea Nitrogen 19 mg/dl Creatinine 1.30 mg/dl Est Creatinine Clear Calc Drug Dose 47.8 ml/min Estimated GFR () 49.2 Estimated GFR (Non- 42.4 BUN/Creatinine Ratio 14.3 Random Glucose 159 mg/dl Lactic Acid Level 1.8 mmol/L Calcium Level 7.5 mg/dl Ionized Calcium 1.08 mmol/l Phosphorus Level 4.4 mg/dl Magnesium Level 2.2 mg/dl Total Bilirubin 0.4 mg/dl Aspartate Amino Transf (AST/SGOT) 47 U/L Alanine Aminotransferase (ALT/SGPT) 32 U/L Alkaline Phosphatase 86 U/L Total Protein 5.1 gm/dl Albumin 1.3 gm/dl Globulin 3.8 gm/dl Albumin/Globulin Ratio 0.3 Test 11/15/16 07:31 11/15/16 08:14 11/15/16 08:28 11/15/16 08:45 Bedside Glucose 135 mg/dl 130 mg/dl Blood Gas Sample Site Art Line Bedside Blood Gas pH (LAB) 7.38 Bedside Blood Gas pCO2 (LAB) 31 mmHg Bedside Blood Gas pO2 (LAB) 69 mmHg Bedside Blood Gas HCO3 (LAB) 19 meq/L Bedside Blood Gas Total CO2 20 mEq/l Bedside Blood Gas Base Excess (LAB) -7.0 meq/L Bedside Blood Gas O2 Saturation 94.0 % All Test NA Oxygen Delivery Device Room Air Sodium Level 134 mmol/L Potassium Level 3.9 mmol/L Chloride Level 104 mmol/L Carbon Dioxide Level 21 mmol/L Anion Gap 9.0 mmol/L Blood Urea Nitrogen 21 mg/dl Creatinine 1.30 mg/dl Est Creatinine Clear Calc Drug Dose 47.8 ml/min Estimated GFR () 49.2 Estimated GFR (Non- 42.4 BUN/Creatinine Ratio 16.0 Random Glucose 122 mg/dl Calcium Level 7.3 mg/dl Phosphorus Level 4.2 mg/dl Magnesium Level 2.0 mg/dl Test 11/15/16 09:34 11/15/16 10:32 11/15/16 11:31 11/15/16 12:11 Bedside Glucose 118 mg/dl 115 mg/dl 110 mg/dl White Blood Count 26.31 K/uL Red Blood Count 2.88 M/uL Hemoglobin 8.6 g/dL Hematocrit 24.2 % Mean Corpuscular Volume 84.0 fL Mean Corpuscular Hemoglobin 29.9 pg Mean Corpuscular Hemoglobin Concent 35.5 g/dl Platelet Count 290 K/uL Mean Platelet Volume 9.2 fL RDW Standard Deviation 48.9 fL RDW Coefficient of Variation 15.8 % Nucleated RBC Absolute Count (auto) 0.03 K/uL Neutrophils % (Manual) 90.4 % Lymphocytes % (Manual) 6.1 % Monocytes % (Manual) 1.7 % Eosinophils % (Manual) 0.9 % Metamyelocytes % 0.9 % Nucleated Red Blood Cells % 0.1 % Neutrophils # (Manual) 23.78 K/uL Total Absolute Neutrophils 23.78 K/uL Lymphocytes # (Manual) 1.60 K/uL Total Absolute Lymphocytes 1.60 K/uL Monocytes # (Manual) 0.45 K/uL Eosinophils # (Manual) 0.24 K/uL Metamyelocytes # 0.24 K/uL Red Blood Cell Morphology Unremarkable Sodium Level 135 mmol/L Potassium Level 3.9 mmol/L Chloride Level 104 mmol/L Carbon Dioxide Level 21 mmol/L Anion Gap 10.0 mmol/L Blood Urea Nitrogen 22 mg/dl Creatinine 1.20 mg/dl Est Creatinine Clear Calc Drug Dose 51.7 ml/min Estimated GFR () 54.2 Estimated GFR (Non- 46.7 BUN/Creatinine Ratio 18.1 Random Glucose 100 mg/dl Lactic Acid Level 1.1 mmol/L Calcium Level 7.1 mg/dl Phosphorus Level 4.1 mg/dl Magnesium Level 2.0 mg/dl Total Bilirubin 0.3 mg/dl Aspartate Amino Transf (AST/SGOT) 36 U/L Alanine Aminotransferase (ALT/SGPT) 27 U/L Alkaline Phosphatase 87 U/L Total Creatine Kinase 116 U/L Total Protein 5.0 gm/dl Albumin 1.3 gm/dl Globulin 3.7 gm/dl Albumin/Globulin Ratio 0.4 Test 11/15/16 16:11 Bedside Glucose 108 mg/dl Date/Time Source Procedure Growth Status 11/14/16 23:00 Nasal MRSA DNA Surveillance Screen - Final Specimen Positive for MRSA by DNA Probe Complete Assessment & Plan SEPSIS with SEPTIC ARTHRITIS LEFT KNEE -taken to OR 11/14 for removal of implants with insertion of antibiotic spacer -ID consulted -patient on daptomycin -synovial cultures with staph aureus -weaned off pressor support H/O MRSA BACTEREMIA -on daptomycin -management per ID UTI -urine culture with gram negative bacilli -patient on aztreonam ATRIAL FIBRILLATION -weaned off amiodarone drip -restarted on metoprolol -anticoagulation currently on hold ANNETTE -Renal consulted -continue IVF DM2 -hold glipizide -insulin coverage -glycemic pharmacy consulted ACUTE BLOOD LOSS ANEMIA -transfused 2units PRBC's HTN -post operative hypotension requiring pressor support -metoprolol restarted Pressure ulcer of right medial buttock, stage 2, POA and Pressure ulcer of medial sacrum, stage 2, not POA -- Wound care consulted H/O DVT -S/P IVC filter DVT PROPHYLAXIS: aspirin BID Current Inpatient Medications: Current Inpatient Medications Medications (Trade) Dose Ordered Sig/Denisse Route Start Time Stop Time Status Last Admin Dose Admin Pantoprazole Sodium (Protonix Tab) 40 mg QAM PO 11/14/16 09:00 12/14/16 08:59 11/15/16 09:06 40 MG Acetaminophen (Tylenol Tab) 650 mg Q4H PRN PO 11/13/16 13:00 12/13/16 12:59 11/13/16 23:43 650 MG Docusate Sodium (coLACE CAP) 100 mg BID PO 11/13/16 21:00 12/13/16 20:59 11/15/16 08:41 100 MG Folic Acid (Folvite Tab) 1 mg DAILY PO 11/14/16 09:00 12/14/16 08:59 11/15/16 09:06 1 MG Tramadol HCl (Ultram Tab) 50 mg Q4H PRN PO 11/13/16 13:00 12/13/16 12:59 11/13/16 23:43 50 MG Morphine Sulfate (MoRPHine SULFATE INJ) 2 mg Q4H PRN IV 11/13/16 13:30 11/27/16 13:29 11/15/16 10:37 2 MG Morphine Sulfate (MoRPHine SULFATE INJ) 4 mg Q4H PRN IV 11/13/16 13:30 11/27/16 13:29 11/15/16 14:24 4 MG Morphine Sulfate 6 mg 6 mg Q4H PRN IV 11/13/16 13:30 11/27/16 13:29 Daptomycin/Sodium Chloride (Cubicin IV/Nss 50ml) 62 ml @ 120 mls/hr Q24H IV 11/13/16 14:00 12/25/16 13:59 11/15/16 14:22 120 MLS/HR Glucose (Glucose 40% Gel) 15-30 GRAMS 15 GRAMS... UD PRN PO 11/13/16 14:30 12/13/16 14:29 Glucose (Glucose Chew Tab) 4-8 Tablets 4 Tabl... UD PRN PO 11/13/16 14:30 12/13/16 14:29 Dextrose (Dextrose 50% 50ML Syringe) 25-50ML OF 50% DW IV FOR... UD PRN IV 11/13/16 14:30 12/13/16 14:29 Glucagon (Glucagon Inj) 1 mg UD PRN SQ 11/13/16 14:30 12/13/16 14:29 Oxycodone HCl (Roxicodone Immediate Rel Tab) 1 TABLET FOR PAIN RATING... Q4H PRN PO 11/14/16 11:45 11/28/16 11:44 Magnesium Hydroxide (Milk Of Magnesia Susp) 30 ml Q6H PRN PO 11/14/16 11:45 12/14/16 11:44 Bisacodyl (Dulcolax Supp) 10 mg DAILY PRN TX 11/14/16 11:45 12/14/16 11:44 Senna (Senokot Tab) 17.2 mg HS PO 11/14/16 21:00 12/14/16 20:59 11/14/16 21:26 17.2 MG Diphenhydramine HCl (Benadryl Inj) 25 mg Q8H PRN IV 11/14/16 11:45 12/14/16 11:44 Al Hydrox/Mg Hydrox/Simethicone (Maalox Max Susp) 15 ml Q4H PRN PO 11/14/16 11:45 12/14/16 11:44 Multivitamins (Multivitamin Tab) 1 tab QAM PO 11/15/16 09:00 12/15/16 08:59 11/15/16 09:06 1 TAB Ondansetron HCl (Zofran Inj) 4 mg Q6H PRN IV 11/14/16 11:45 12/14/16 11:44 11/14/16 16:03 4 MG Ferrous Gluconate (Ferrous Gluconate Tab) 324 mg TIDM PO 11/14/16 12:30 12/14/16 12:29 11/15/16 15:43 324 MG Aspirin 81 mg 81 mg BID PO 11/14/16 21:00 12/14/16 20:59 11/15/16 08:41 81 MG Phenylephrine HCl 20 mg/Dextrose 502 ml @ 0 mls/hr Q0M PRN IV 11/14/16 14:15 12/14/16 14:14 Norepinephrine Bitartrate 8 mg/ Dextrose 508 ml @ 0 mls/hr Q0M PRN IV 11/14/16 14:14 12/14/16 14:13 11/14/16 14:39 37.5 MLS/HR Sodium Chloride 1,000 ml @ 150 mls/hr Q6H40M IV 11/14/16 15:15 12/14/16 15:14 11/15/16 15:43 150 MLS/HR Aztreonam/Dextrose (Azactam IV/D5 100ml) 110 ml @ 100 mls/hr Q8@0000,0800,1600 IV 11/14/16 17:00 11/24/16 15:59 11/15/16 15:43 100 MLS/HR Miscellaneous Information (Consult Glycemic Management Pharmacy) 1 ea UD PRN N/A 11/14/16 21:30 12/14/16 21:29 Heparin Sodium (Porcine) (Heparin 10 Unit/ ml 5 ml Flush) 5 ml PRN PRN FLUSH 11/15/16 01:30 12/15/16 01:29 Insulin Glargine (Lantus Solostar Pen) see protocol text BID SC 11/15/16 21:00 12/15/16 20:59 Insulin Aspart (novoLOG ASPART) SLIDING SCALE ACHS SC 11/15/16 16:00 12/15/16 15:59 11/15/16 16:58 3 UNITS Metoprolol Tartrate (Lopressor Tab) 25 mg BID PO 11/15/16 21:00 12/15/16 20:59
[2016-11-15] MEDS: SENNA 8.6 MG TAB PO SCH (20:54)
[2016-11-15] MEDS: METOPROLOL TARTRATE 25 MG TAB PO SCH (20:54)
[2016-11-16] VITALS (19 sets, daily range): BP systolic 102–256; BP diastolic 49–251; PULSE 70–85; TEMP 36.4–36.8; O2SAT 9–100
[2016-11-16] MEDS: OXYCODONE HCL IR 5 MG TAB (IMMEDIATE RELEASE) PO PRN ×2 (03:56→13:48)
[2016-11-16 06:18] LABS: BASO % 0.4 %; BASO ABS # 0.08 K/uL (0-0.2); EOS % 2.8 %; HEMATOCRIT 23.6 % (37-47); IG% 2.3 %; LYMPH % 5.3 %; LYMPH ABS # 1.21 K/uL (1.2-3.4); MEAN CELL VOLUME 85.2 fL (80-100); MEAN CORPUSCULAR HEMOGLOBIN 29.2 pg (25-34); MEAN CORPUSCULAR HGB CONC 34.3 g/dl (32-36); MONO % 4.2 %; PLATELET COUNT 312 K/uL (130-400); RED BLOOD COUNT 2.77 M/uL (4.2-5.4); WHITE BLOOD COUNT 22.83 K/uL (4.8-10.8)
[2016-11-16 06:38] LABS: COMPLETE YES
[2016-11-16] MEDS: INSULIN ASPART 100 UNITS/ML 3 ML PEN SC SCH ×5 (06:45→23:43)
[2016-11-16 06:55] LABS: BUN/CREATININE RATIO 19.7 (10-20); CALCIUM 6.9 mg/dl (8.5-10.1); CREATININE 0.97 mg/dl (0.60-1.20); MAGNESIUM 1.8 mg/dl (1.8-2.4); POTASSIUM 3.6 mmol/L (3.5-5.1)
[2016-11-16 07:00] LABS: ALB/GLOB RATIO 0.3 (0.9-2); PHOSPHORUS 3.4 mg/dl (2.5-4.9)
[2016-11-16] MEDS: DEXTROSE 50% 50 ML SYR IV PRN ×2 (07:04→16:36)
--- NOTE | 2016-11-16 07:37 | Orthopedic Progress Note ---
Orthopedic Progress Note Date of Service Nov 16, 2016. Subjective Post OP Day: 2 Reports: pain controlled w PO medications, Denies: SOB, calf pain, chest pain, complaints, light headedness, nausea / vomiting Additional Notes: rates her pain as 3/10 presently Objective A&O x3, hemovac drainage (30cc/8 hours) prevena wound vac in place. she is able to wiggle her toes and perform gentle ankle pumps this morning. foot slightly cold, no palpable pulse. able to perform weak straight leg raise. Date Time Temp Pulse Resp B/P Pulse Ox O2 Delivery O2 Flow Rate FiO2 11/16/16 06:05 73 17 171/55 98 11/16/16 06:00 73 13 256/251 98 11/16/16 05:50 75 22 170/55 100 11/16/16 04:20 74 15 161/52 97 11/16/16 04:05 72 16 172/58 99 11/16/16 04:00 76 15 179/67 100 11/16/16 04:00 94 Room Air 11/16/16 03:50 71 14 171/57 100 11/16/16 02:00 72 14 159/56 100 11/16/16 01:50 70 12 141/49 98 11/16/16 00:05 70 15 122/50 97 11/16/16 00:00 71 16 125/51 98 11/16/16 00:00 94 Room Air 11/15/16 23:50 69 16 130/53 98 11/15/16 22:20 74 15 136/54 97 11/15/16 22:05 93 12 153/56 97 11/15/16 22:00 91 14 164/63 97 11/15/16 21:50 94 17 156/56 96 11/15/16 20:00 93 Room Air 3.0 11/15/16 20:00 36.4 94 15 99/58 93 Room Air 3.0 11/15/16 18:00 36.4 97 23 171/50 92 Room Air 114/66 11/15/16 16:00 36.4 101 23 149/69 92 Room Air 158/60 11/15/16 16:00 Room Air 11/15/16 14:00 36.4 84 16 161/50 93 Room Air 152/71 11/15/16 12:00 Room Air 11/15/16 12:00 36.4 78 17 148/48 93 Room Air 117/65 11/15/16 10:00 36.4 76 18 150/46 94 Room Air 122/53 11/15/16 08:00 Room Air 11/15/16 08:00 36.4 80 18 143/44 93 Room Air 110/59 Laboratory Results 24 Hours: Test 11/15/16 12:11 11/16/16 06:02 White Blood Count 26.31 K/uL 22.83 K/uL Red Blood Count 2.88 M/uL 2.77 M/uL Hemoglobin 8.6 g/dL 8.1 g/dL Hematocrit 24.2 % 23.6 % Mean Corpuscular Volume 84.0 fL 85.2 fL Mean Corpuscular Hemoglobin 29.9 pg 29.2 pg Mean Corpuscular Hemoglobin Concent 35.5 g/dl 34.3 g/dl Platelet Count 290 K/uL 312 K/uL Mean Platelet Volume 9.2 fL 9.0 fL Neutrophils (%) (Auto) 85.0 % Lymphocytes (%) (Auto) 5.3 % Monocytes (%) (Auto) 4.2 % Eosinophils (%) (Auto) 2.8 % Basophils (%) (Auto) 0.4 % Neutrophils # (Auto) 19.40 K/uL Lymphocytes # (Auto) 1.21 K/uL Monocytes # (Auto) 0.97 K/uL Eosinophils # (Auto) 0.65 K/uL Basophils # (Auto) 0.08 K/uL Assessment & Plan Assessment: SEPTIC ARTHRITIS LEFT TOTAL KNEE ARTHROPLASTY -POD #2 s/p I&D, removal total knee implant, placement of antibiotic spacer and prevena wound vac -ID Consult, currently on Daptomycin, h/o MRSA -blood cultures positive gram positive cocci -Dr Botello consulted recommending continued observation, No indication for any intervention at this time UTI -urine culture with gram negative bacilli ATRIAL FIBRILLATION DM2 -glycemic pharmacy consulted ACUTE BLOOD LOSS ANEMIA -transfused 3 units PRBC's during this admission - H/H this am at 8.1/23.6 H/O DVT -S/P IVC filter (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
[2016-11-16] MEDS: FERROUS GLUCONATE 324 MG TAB PO SCH ×3 (08:39→16:12)
[2016-11-16] MEDS: MULTIVITAMIN TAB PO SCH (08:40)
[2016-11-16] MEDS: PANTOprazole SOD 40 MG TAB PO SCH (08:40)
[2016-11-16] MEDS: DOCUSATE SODIUM 100 MG CAP PO SCH ×2 (08:40→21:21)
[2016-11-16] MEDS: ASPIRIN 81 MG ECTAB PO SCH ×2 (08:40→21:22)
[2016-11-16] MEDS: AZTREONAM IV 1,000 MG in DEXTROSE 5% 100ML 100 ML IV SCH ×3 (08:40→23:39)
[2016-11-16] MEDS: METOPROLOL TARTRATE 25 MG TAB PO SCH ×2 (08:40→21:21)
--- NOTE | 2016-11-16 09:57 | Pharmacy Progress Note ---
Glycemic Control: Progress Nt Date of Service Nov 16, 2016. Scope Glycemic Pharmacist consulted by Dr Betancourt on 11/14/16 for glycemic control and to write orders per [facility] inpatient glycemic control protocol. Objective Accuchecks BSG (last 24hrs): Test 11/15/16 10:32 11/15/16 11:31 11/15/16 12:11 11/15/16 16:11 Bedside Glucose 115 mg/dl (70-90) 110 mg/dl (70-90) 108 mg/dl (70-90) Random Glucose 100 mg/dl (70-99) Test 11/15/16 20:50 11/16/16 06:02 11/16/16 07:37 Bedside Glucose 138 mg/dl (70-90) 74 mg/dl (70-90) Random Glucose 61 mg/dl (70-99) Laboratory Data (last 24hrs) Test 11/15/16 12:11 11/16/16 06:02 Anion Gap 10.0 mmol/L 11.0 mmol/L BUN/Creatinine Ratio 18.1 19.7 Blood Urea Nitrogen 22 mg/dl 19 mg/dl Creatinine 1.20 mg/dl 0.97 mg/dl Potassium Level 3.9 mmol/L 3.6 mmol/L Sodium Level 135 mmol/L 138 mmol/L White Blood Count 26.31 K/uL 22.83 K/uL Red Blood Count 2.88 M/uL 2.77 M/uL Hemoglobin 8.6 g/dL 8.1 g/dL Hematocrit 24.2 % 23.6 % Mean Corpuscular Volume 84.0 fL 85.2 fL Mean Corpuscular Hemoglobin 29.9 pg 29.2 pg Mean Corpuscular Hemoglobin Concent 35.5 g/dl 34.3 g/dl Platelet Count 290 K/uL 312 K/uL Mean Platelet Volume 9.2 fL 9.0 fL Neutrophils (%) (Auto) 85.0 % Lymphocytes (%) (Auto) 5.3 % Monocytes (%) (Auto) 4.2 % Eosinophils (%) (Auto) 2.8 % Basophils (%) (Auto) 0.4 % Neutrophils # (Auto) 19.40 K/uL Lymphocytes # (Auto) 1.21 K/uL Monocytes # (Auto) 0.97 K/uL Eosinophils # (Auto) 0.65 K/uL Basophils # (Auto) 0.08 K/uL Recent Pertinent Medications Outpatient Anti-diabetic Regimen: * Glipizide ER 10mg qAM, Novolog QID per SS, Lantus 18 units BID * A1c = 7.7 % 10/20/16 Risk Factors for Insulin Resistance: * Infection: Infected total knee replacement * IVF: NS, ABX in dextrose * Recent Surgery: L TKR 10/22/16; OR 11/14 for ABX spacer * Diet: clears Assessment & Plan ASSESSMENT: 11/16/16 * Pt is a 66 yo female readmitted s/p L TKR on 10/22/16. Due to infection, patient taken to OR 11/14/16. * 11/14: All AM insulins held. Pt initiated on dextrose containing fluids. Pt hypotensive, started on pressors and sent to ICU. -MD started insulin drip that night for BSGs >350 mg/dL and dextrose containing fluids discontinued * 11/15: BSGs stabilized and patient looking much better, advanced to clears--> Transition back to basal/bolus * Patient received a total of 23 units (+ drip overlap) in the last 24 hours * Fasting BSG 61 mg/dL- D25 pushed per protocol * Patient asymptomatic- breakfast tray consumed without coverage due to ongoing emergencies in ICU * Lunch BSG 69 mg/dL- nurse called pharmacy, patient ate full tray plus juice and recheck was only 85 mg/dL * My plan today will be to hold all basal insulin until BSG >140 mg/dL and remove carb coverage due to sustained hypoglycemia PLAN FOR INPATIENT GLYCEMIC CONTROL: * Hold basal insulin * Novolog ACHS * Goal range: Low 140 mg/dL - High 180 mg/dL * Correction Factor: 30 mg/dL/unit * Remove carb ratio * Please note that the plan above was derived based on current level of insulin resistance and hospital stress. These recommendations are appropriate for inpatient admission only. Plan of care upon discharge will need to be reassessed to avoid potential outpatient hypo/hyperglycemia. Thank you.
[2016-11-16] MEDS: SODIUM CHLORIDE 0.9% 1000ML 1,000 ML IV SCH (13:16)
[2016-11-16] MEDS: MoRPHine SULFATE 4 MG/ML 1 ML CARP\\VIAL IV PRN ×2 (13:48→18:23)
[2016-11-16] MEDS: DAPTOmycin IV 600 MG in SODIUM CHLORIDE 0.9% 50ML 50 ML IV SCH (14:00)
--- NOTE | 2016-11-16 15:46 | Progress Note ---
Medicine Progress Note Date & Time of Visit: Nov 16, 2016 at 15:42. Subjective Patient seen and examined. Denies pain. Feels that her appetite is improving. Objective Last 8 Hrs Date Time Temp Pulse Resp B/P Pulse Ox O2 Delivery O2 Flow Rate FiO2 11/16/16 14:00 36.4 80 15 109/67 100 Room Air 11/16/16 12:00 36.4 81 18 170/72 100 Room Air 11/16/16 12:00 Room Air 11/16/16 10:00 36.4 85 17 127/69 95 Room Air 218/65 11/16/16 08:00 Room Air 11/16/16 08:00 36.4 74 15 123/65 100 Room Air 161/59 Physical Exam: General-awake; alert; NAD Eyes-EOMI; no scleral icterus Neck-no stridor; trachea midline Lungs-CTA bilaterally anteriorly Heart-RRR; no m/r/g Abdomen-soft; NTND; nBS Extremities-left leg bandage c/d/i Neuro-no focal deficits Laboratory Results: Last 24 Hours Test 11/15/16 16:11 11/15/16 20:50 11/16/16 06:02 11/16/16 07:37 Bedside Glucose 108 mg/dl 138 mg/dl 74 mg/dl White Blood Count 22.83 K/uL Red Blood Count 2.77 M/uL Hemoglobin 8.1 g/dL Hematocrit 23.6 % Mean Corpuscular Volume 85.2 fL Mean Corpuscular Hemoglobin 29.2 pg Mean Corpuscular Hemoglobin Concent 34.3 g/dl Platelet Count 312 K/uL Mean Platelet Volume 9.0 fL Neutrophils (%) (Auto) 85.0 % Lymphocytes (%) (Auto) 5.3 % Monocytes (%) (Auto) 4.2 % Eosinophils (%) (Auto) 2.8 % Basophils (%) (Auto) 0.4 % Neutrophils # (Auto) 19.40 K/uL Lymphocytes # (Auto) 1.21 K/uL Monocytes # (Auto) 0.97 K/uL Eosinophils # (Auto) 0.65 K/uL Basophils # (Auto) 0.08 K/uL RDW Standard Deviation 51.5 fL RDW Coefficient of Variation 16.4 % Immature Granulocyte % (Auto) 2.3 % Immature Granulocyte # (Auto) 0.52 K/uL Red Blood Cell Morphology Unremarkable Sodium Level 138 mmol/L Potassium Level 3.6 mmol/L Chloride Level 106 mmol/L Carbon Dioxide Level 21 mmol/L Anion Gap 11.0 mmol/L Blood Urea Nitrogen 19 mg/dl Creatinine 0.97 mg/dl Est Creatinine Clear Calc Drug Dose 64.0 ml/min Estimated GFR () 70.0 Estimated GFR (Non- 60.4 BUN/Creatinine Ratio 19.7 Random Glucose 61 mg/dl Lactic Acid Level 1.0 mmol/L Calcium Level 6.9 mg/dl Ionized Calcium 1.04 mmol/l Phosphorus Level 3.4 mg/dl Magnesium Level 1.8 mg/dl Total Bilirubin 0.2 mg/dl Aspartate Amino Transf (AST/SGOT) 24 U/L Alanine Aminotransferase (ALT/SGPT) 25 U/L Alkaline Phosphatase 91 U/L Total Creatine Kinase 112 U/L Total Protein 5.1 gm/dl Albumin 1.2 gm/dl Globulin 3.9 gm/dl Albumin/Globulin Ratio 0.3 Test 11/16/16 12:24 11/16/16 13:14 Bedside Glucose 69 mg/dl 85 mg/dl Date/Time Source Procedure Growth Status 11/16/16 10:06 Blood Blood Culture Pending Received 11/16/16 08:40 Blood Blood Culture Pending Received Assessment & Plan SEPSIS with SEPTIC ARTHRITIS LEFT KNEE -taken to OR 11/14 for removal of implants with insertion of antibiotic spacer -ID consulted -patient on daptomycin -synovial cultures with MRSA -weaned off pressor support MRSA BACTEREMIA -on daptomycin -ID consulted -blood cultures 11/14 with staph aureus -repeat blood cultures pending UTI -urine culture with alvarez-sensitive citrobacter -patient on aztreonam ATRIAL FIBRILLATION -weaned off amiodarone drip -restarted on metoprolol -anticoagulation currently on hold OLIGURIC ANNETTE -resolved -continue IVF DM2 -hold glipizide -insulin coverage -glycemic pharmacy consulted ACUTE BLOOD LOSS ANEMIA -transfused 2units PRBC's -Hgb stable HTN -post operative hypotension requiring pressor support -metoprolol restarted Pressure ulcer of right medial buttock, stage 2, POA and Pressure ulcer of medial sacrum, stage 2, not POA -- Wound care consulted H/O DVT -S/P IVC filter DVT PROPHYLAXIS: aspirin BID Current Inpatient Medications: Current Inpatient Medications Medications (Trade) Dose Ordered Sig/Denisse Route Start Time Stop Time Status Last Admin Dose Admin Pantoprazole Sodium (Protonix Tab) 40 mg QAM PO 11/14/16 09:00 12/14/16 08:59 11/16/16 08:40 40 MG Acetaminophen (Tylenol Tab) 650 mg Q4H PRN PO 11/13/16 13:00 12/13/16 12:59 11/13/16 23:43 650 MG Docusate Sodium (coLACE CAP) 100 mg BID PO 11/13/16 21:00 12/13/16 20:59 11/16/16 08:40 100 MG Folic Acid (Folvite Tab) 1 mg DAILY PO 11/14/16 09:00 12/14/16 08:59 11/16/16 08:40 1 MG Tramadol HCl (Ultram Tab) 50 mg Q4H PRN PO 11/13/16 13:00 12/13/16 12:59 11/13/16 23:43 50 MG Morphine Sulfate (MoRPHine SULFATE INJ) 2 mg Q4H PRN IV 11/13/16 13:30 11/27/16 13:29 11/15/16 10:37 2 MG Morphine Sulfate (MoRPHine SULFATE INJ) 4 mg Q4H PRN IV 11/13/16 13:30 11/27/16 13:29 11/16/16 13:48 4 MG Morphine Sulfate 6 mg 6 mg Q4H PRN IV 11/13/16 13:30 11/27/16 13:29 Daptomycin/Sodium Chloride (Cubicin IV/Nss 50ml) 62 ml @ 120 mls/hr Q24H IV 11/13/16 14:00 12/25/16 13:59 11/16/16 14:00 120 MLS/HR Glucose (Glucose 40% Gel) 15-30 GRAMS 15 GRAMS... UD PRN PO 11/13/16 14:30 12/13/16 14:29 Glucose (Glucose Chew Tab) 4-8 Tablets 4 Tabl... UD PRN PO 11/13/16 14:30 12/13/16 14:29 Dextrose (Dextrose 50% 50ML Syringe) 25-50ML OF 50% DW IV FOR... UD PRN IV 11/13/16 14:30 12/13/16 14:29 11/16/16 07:04 25 ML Glucagon (Glucagon Inj) 1 mg UD PRN SQ 11/13/16 14:30 12/13/16 14:29 Oxycodone HCl (Roxicodone Immediate Rel Tab) 1 TABLET FOR PAIN RATING... Q4H PRN PO 11/14/16 11:45 11/28/16 11:44 11/16/16 13:48 10 MG Magnesium Hydroxide (Milk Of Magnesia Susp) 30 ml Q6H PRN PO 11/14/16 11:45 12/14/16 11:44 Bisacodyl (Dulcolax Supp) 10 mg DAILY PRN [place] 11/14/16 11:45 12/14/16 11:44 Senna (Senokot Tab) 17.2 mg HS PO 11/14/16 21:00 12/14/16 20:59 11/15/16 20:54 17.2 MG Diphenhydramine HCl (Benadryl Inj) 25 mg Q8H PRN IV 11/14/16 11:45 12/14/16 11:44 Al Hydrox/Mg Hydrox/Simethicone (Maalox Max Susp) 15 ml Q4H PRN PO 11/14/16 11:45 12/14/16 11:44 Multivitamins (Multivitamin Tab) 1 tab QAM PO 11/15/16 09:00 12/15/16 08:59 11/16/16 08:40 1 TAB Ondansetron HCl (Zofran Inj) 4 mg Q6H PRN IV 11/14/16 11:45 12/14/16 11:44 11/14/16 16:03 4 MG Ferrous Gluconate (Ferrous Gluconate Tab) 324 mg TIDM PO 11/14/16 12:30 12/14/16 12:29 11/16/16 13:17 324 MG Aspirin 81 mg 81 mg BID PO 11/14/16 21:00 12/14/16 20:59 11/16/16 08:40 81 MG Sodium Chloride 1,000 ml @ 150 mls/hr Q6H40M IV 11/14/16 15:15 12/14/16 15:14 11/16/16 13:16 150 MLS/HR Aztreonam/Dextrose (Azactam IV/D5 100ml) 110 ml @ 100 mls/hr Q8@0000,0800,1600 IV 11/14/16 17:00 11/24/16 15:59 11/16/16 08:40 100 MLS/HR Miscellaneous Information (Consult Glycemic Management Pharmacy) 1 ea UD PRN N/A 11/14/16 21:30 12/14/16 21:29 Heparin Sodium (Porcine) (Heparin 10 Unit/ ml 5 ml Flush) 5 ml PRN PRN FLUSH 11/15/16 01:30 12/15/16 01:29 Insulin Aspart (novoLOG ASPART) SLIDING SCALE ACHS SC 11/15/16 16:00 12/15/16 15:59 11/15/16 16:58 3 UNITS Metoprolol Tartrate (Lopressor Tab) 25 mg BID PO 11/15/16 21:00 12/15/16 20:59 11/16/16 08:40 25 MG Insulin Aspart (novoLOG ASPART) SLIDING SCALE 0000,0400 SC 11/17/16 00:00 12/17/16 00:00
[2016-11-16] MEDS ORDERED: NURSING VERBAL MED ORDER ONE ×2 (16:30→18:30)
--- NOTE | 2016-11-16 18:15 | Critical Care Progress Note ---
Critical Care Progress Note Date of Service Nov 16, 2016. Attending Dr. Quiroz Subjective Off pressors today. Feels better Drain removed A-line removed Tolerating diet Objective General: Comfortable in bed today, awake Heent: NC/AT CVS: S1S2 regular, no murmurs Lungs: CTA b/l Abdomen: Soft, NT, ND Ext: Right BKA. Left lower extremity: Dopplerable DP and PT pulses, foot is cool but no cyanosis. No foot tenderness. Dressing over the left knee, with some tenderness and ecchymosis. 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 She had a prolonged hospital course with sepsis secondary to MRSA bacteremia, right foot necrosis requiring below-knee amputation and bilateral DVT with IVC filter placement . She was discharged to [facility] on IV daptomycin via her PICC line. She presented to orthopedic office with increasing pain and drainage from the left knee. She was taken to the OR on 11/14/16 after left knee aspiration was concerning for septic arthritis. Underwent removal of the implants with insertion of antibiotic spacer. During the surgery she became hypotensive and was started on pressors. Was aggressively resuscitated with crystalloid, neosynephrine changed to Levophed. Receive 2 units PRBC yesterday. Now off pressors, in and out of a-fib, but rate controlled Problems: Septic shock with GPC- extremely likely MRSA just like in the joint Oliguric kidney disease A-fib with RVR S/p left knee removal of implants with insertion of antibiotic spacer. 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 Pain is better today Pulmonary: Stable, no active issues CVS: Out of shock, off pressors. HR greatly improved, may stay off amiodarone. For now she cannot receive full anticoagulation in the light of the recent surgery Continue metoprolol. On ASA Has significant PVD, worsened by the shock, pressors. Now improved, pulses regained, no need for intervention ID: Continue Daptomycin MRSA bacteremia persisting, also with MRSA in the joint fluid Started Azactam in the face of fulminant septic shock to cover GNR. Has Citrobacter UTI, pansensitive. Patient has a long list of allergies, will continue Azactam for now WBC trending down, lactate normalized. In my opinion, such brisk, severe leukocytosis would be explained by generalized, mesenteric low flow state, with significant elevation of lactate, improved with hydration. Ischemic limb does not typically present this way in my experience, especially with only borderline CPK Antibiotic spacer inserted. Patient at risk for eventual left AKA if her infection does not resolve Renal/metabolic: Oliguric ANNETTE, improving now, she is producing good amounts of urine Heme: Has an IVC filter for prior DVT. May need full anticoagulation eventually, if she is not mobile is at less risk for fall. S/p 2 units PRBC Repeat AM CBC Endo: Glucose improved, off insulin drip, AG closed. On Aspart sliding scale, Lantus pen GI: Tolerating diet DVT prophylaxis: SC heparin Consults & Procedures Consultants: Ortho - Dr Ibarra ID: Dr Wiggins Vascular - Dr Botello Cardiology - Dr Winston Procedures: 11/14/16 - Left knee implant removal with antibiotic spacer Right radial a-line Righ IJ TLC Data Medications: Current Inpatient Medications Medications (Trade) Dose Ordered Sig/Denisse Route Start Time Stop Time Status Last Admin Dose Admin Pantoprazole Sodium (Protonix Tab) 40 mg QAM PO 11/14/16 09:00 12/14/16 08:59 11/16/16 08:40 40 MG Acetaminophen (Tylenol Tab) 650 mg Q4H PRN PO 11/13/16 13:00 12/13/16 12:59 11/13/16 23:43 650 MG Docusate Sodium (coLACE CAP) 100 mg BID PO 11/13/16 21:00 12/13/16 20:59 11/16/16 08:40 100 MG Folic Acid (Folvite Tab) 1 mg DAILY PO 11/14/16 09:00 12/14/16 08:59 4/9/17 08:40 1 MG Tramadol HCl (Ultram Tab) 50 mg Q4H PRN PO 11/13/16 13:00 12/13/16 12:59 11/13/16 23:43 50 MG Morphine Sulfate (MoRPHine SULFATE INJ) 2 mg Q4H PRN IV 11/13/16 13:30 11/27/16 13:29 11/15/16 10:37 2 MG Morphine Sulfate (MoRPHine SULFATE INJ) 4 mg Q4H PRN IV 11/13/16 13:30 11/27/16 13:29 11/16/16 13:48 4 MG Morphine Sulfate 6 mg 6 mg Q4H PRN IV 11/13/16 13:30 11/27/16 13:29 Daptomycin/Sodium Chloride (Cubicin IV/Nss 50ml) 62 ml @ 120 mls/hr Q24H IV 11/13/16 14:00 12/25/16 13:59 11/16/16 14:00 120 MLS/HR Glucose (Glucose 40% Gel) 15-30 GRAMS 15 GRAMS... UD PRN PO 11/13/16 14:30 12/13/16 14:29 Glucose (Glucose Chew Tab) 4-8 Tablets 4 Tabl... UD PRN PO 11/13/16 14:30 12/13/16 14:29 Dextrose (Dextrose 50% 50ML Syringe) 25-50ML OF 50% DW IV FOR... UD PRN IV 11/13/16 14:30 12/13/16 14:29 11/16/16 16:36 50 ML Glucagon (Glucagon Inj) 1 mg UD PRN SQ 11/13/16 14:30 12/13/16 14:29 Oxycodone HCl (Roxicodone Immediate Rel Tab) 1 TABLET FOR PAIN RATING... Q4H PRN PO 11/14/16 11:45 11/28/16 11:44 11/16/16 13:48 10 MG Magnesium Hydroxide (Milk Of Magnesia Susp) 30 ml Q6H PRN PO 11/14/16 11:45 12/14/16 11:44 Bisacodyl (Dulcolax Supp) 10 mg DAILY PRN [place] 11/14/16 11:45 12/14/16 11:44 Senna (Senokot Tab) 17.2 mg HS PO 11/14/16 21:00 12/14/16 20:59 11/15/16 20:54 17.2 MG Diphenhydramine HCl (Benadryl Inj) 25 mg Q8H PRN IV 11/14/16 11:45 12/14/16 11:44 Al Hydrox/Mg Hydrox/Simethicone (Maalox Max Susp) 15 ml Q4H PRN PO 11/14/16 11:45 12/14/16 11:44 Multivitamins (Multivitamin Tab) 1 tab QAM PO 11/15/16 09:00 12/15/16 08:59 11/16/16 08:40 1 TAB Ondansetron HCl (Zofran Inj) 4 mg Q6H PRN IV 11/14/16 11:45 12/14/16 11:44 11/14/16 16:03 4 MG Ferrous Gluconate (Ferrous Gluconate Tab) 324 mg TIDM PO 11/14/16 12:30 12/14/16 12:29 11/16/16 16:12 324 MG Aspirin 81 mg 81 mg BID PO 11/14/16 21:00 12/14/16 20:59 11/16/16 08:40 81 MG Sodium Chloride 1,000 ml @ 100 mls/hr Q10H IV 11/14/16 15:15 12/14/16 15:14 11/16/16 13:16 150 MLS/HR Aztreonam/Dextrose (Azactam IV/D5 100ml) 110 ml @ 100 mls/hr Q8@0000,0800,1600 IV 11/14/16 17:00 11/24/16 15:59 11/16/16 16:12 100 MLS/HR Miscellaneous Information (Consult Glycemic Management Pharmacy) 1 ea UD PRN N/A 11/14/16 21:30 12/14/16 21:29 Heparin Sodium (Porcine) (Heparin 10 Unit/ ml 5 ml Flush) 5 ml PRN PRN FLUSH 11/15/16 01:30 12/15/16 01:29 Insulin Aspart (novoLOG ASPART) SLIDING SCALE ACHS SC 11/15/16 16:00 12/15/16 15:59 11/15/16 16:58 3 UNITS Metoprolol Tartrate (Lopressor Tab) 25 mg BID PO 11/15/16 21:00 12/15/16 20:59 11/16/16 08:40 25 MG Insulin Aspart (novoLOG ASPART) SLIDING SCALE 0000,0400 SC 11/17/16 00:00 12/17/16 00:00 Miconazole Nitrate (Desenex Powder) 1 appln BID PRN EXT 11/16/16 17:00 12/16/16 16:59 I & O: 24-Hour Column 11/16/16 08:00 Intake Total 3971 ml Output Total 2280 ml Balance 1691 ml Vital Signs: Date Time Temp Pulse Resp B/P Pulse Ox O2 Delivery O2 Flow Rate FiO2 11/16/16 16:00 36.4 81 14 122/62 9 Room Air 11/16/16 16:00 Room Air 11/16/16 14:00 36.4 80 15 109/67 100 Room Air 11/16/16 12:00 36.4 81 18 170/72 100 Room Air 11/16/16 12:00 Room Air 11/16/16 10:00 36.4 85 17 127/69 95 Room Air 218/65 11/16/16 08:00 Room Air 11/16/16 08:00 36.4 74 15 123/65 100 Room Air 161/59 11/16/16 06:05 73 17 171/55 98 11/16/16 06:00 73 13 256/251 98 11/16/16 05:50 75 22 170/55 100 11/16/16 04:20 74 15 161/52 97 11/16/16 04:05 72 16 172/58 99 11/16/16 04:00 76 15 179/67 100 11/16/16 04:00 94 Room Air 11/16/16 03:50 71 14 171/57 100 11/16/16 02:00 72 14 159/56 100 11/16/16 01:50 70 12 141/49 98 11/16/16 00:05 70 15 122/50 97 11/16/16 00:00 71 16 125/51 98 11/16/16 00:00 94 Room Air 11/15/16 23:50 69 16 130/53 98 11/15/16 22:20 74 15 136/54 97 11/15/16 22:05 93 12 153/56 97 11/15/16 22:00 91 14 164/63 97 4/8/17 21:50 94 17 156/56 96 11/15/16 20:00 93 Room Air 3.0 11/15/16 20:00 36.4 94 15 99/58 93 Room Air 3.0 Laboratory Results: Last 24 Hours Test 11/15/16 20:50 11/16/16 06:02 11/16/16 07:37 11/16/16 12:24 Bedside Glucose 138 mg/dl 74 mg/dl 69 mg/dl White Blood Count 22.83 K/uL Red Blood Count 2.77 M/uL Hemoglobin 8.1 g/dL Hematocrit 23.6 % Mean Corpuscular Volume 85.2 fL Mean Corpuscular Hemoglobin 29.2 pg Mean Corpuscular Hemoglobin Concent 34.3 g/dl Platelet Count 312 K/uL Mean Platelet Volume 9.0 fL Neutrophils (%) (Auto) 85.0 % Lymphocytes (%) (Auto) 5.3 % Monocytes (%) (Auto) 4.2 % Eosinophils (%) (Auto) 2.8 % Basophils (%) (Auto) 0.4 % Neutrophils # (Auto) 19.40 K/uL Lymphocytes # (Auto) 1.21 K/uL Monocytes # (Auto) 0.97 K/uL Eosinophils # (Auto) 0.65 K/uL Basophils # (Auto) 0.08 K/uL RDW Standard Deviation 51.5 fL RDW Coefficient of Variation 16.4 % Immature Granulocyte % (Auto) 2.3 % Immature Granulocyte # (Auto) 0.52 K/uL Red Blood Cell Morphology Unremarkable Sodium Level 138 mmol/L Potassium Level 3.6 mmol/L Chloride Level 106 mmol/L Carbon Dioxide Level 21 mmol/L Anion Gap 11.0 mmol/L Blood Urea Nitrogen 19 mg/dl Creatinine 0.97 mg/dl Est Creatinine Clear Calc Drug Dose 64.0 ml/min Estimated GFR () 70.0 Estimated GFR (Non- 60.4 BUN/Creatinine Ratio 19.7 Random Glucose 61 mg/dl Lactic Acid Level 1.0 mmol/L Calcium Level 6.9 mg/dl Ionized Calcium 1.04 mmol/l Phosphorus Level 3.4 mg/dl Magnesium Level 1.8 mg/dl Total Bilirubin 0.2 mg/dl Aspartate Amino Transf (AST/SGOT) 24 U/L Alanine Aminotransferase (ALT/SGPT) 25 U/L Alkaline Phosphatase 91 U/L Total Creatine Kinase 112 U/L Total Protein 5.1 gm/dl Albumin 1.2 gm/dl Globulin 3.9 gm/dl Albumin/Globulin Ratio 0.3 Test 11/16/16 13:14 11/16/16 16:20 11/16/16 17:54 Bedside Glucose 85 mg/dl 57 mg/dl 88 mg/dl
[2016-11-16] MEDS: D5W AND NSS 1,000 ML IV SCH (19:40)
[2016-11-16] MEDS: SENNA 8.6 MG TAB PO SCH (21:21)
[2016-11-17] VITALS (8 sets, daily range): BP systolic 137–152; BP diastolic 68–88; PULSE 51–99; TEMP 36.3–36.9; O2SAT 94–99
[2016-11-17] MEDS: MoRPHine SULFATE 4 MG/ML 1 ML CARP\\VIAL IV PRN (03:16)
[2016-11-17] MEDS: INSULIN ASPART 100 UNITS/ML 3 ML PEN SC SCH ×6 (04:00→23:44)
[2016-11-17 06:31] LABS: MEAN CELL VOLUME 85.6 fL (80-100); MEAN CORPUSCULAR HEMOGLOBIN 28.8 pg (25-34); MEAN CORPUSCULAR HGB CONC 33.6 g/dl (32-36); PLATELET COUNT 338 K/uL (130-400); RED BLOOD COUNT 2.57 M/uL (4.2-5.4)
[2016-11-17 07:03] LABS: BUN/CREATININE RATIO 21.3 (10-20); CREATININE 0.68 mg/dl (0.60-1.20); MAGNESIUM 1.4 mg/dl (1.8-2.4); POTASSIUM 3.8 mmol/L (3.5-5.1)
--- NOTE | 2016-11-17 07:12 | Clinical Documentation Query ---
CLINICAL DOCUMENTATION QUERY Dr. VERGARA, In your clinical opinion is this patient being managed for: ( X ) Pressure ulcer of right medial buttock, stage 2, POA ( X ) Pressure ulcer of medial sacrum, stage 2, not POA ( ) Other explanation of clinical findings (Please Explain) ( ) Unable to determine (Please Define) ( ) Need to Discuss ( ) Not Agree The medical record reflects the following clinical findings, treatment, and risk factors. Clinical Indicators: Consult noted for WOCN. Her documentation reflects pt with two stage 2 pressure ulcers-one on R medial buttocks, POA and one on medial sacrum, not POA Treatment: WOCN consult, cleanse and apply optifoam, change q 3 days and prn, turn and reposition q 2 hrs, accumax mattress Risk Factors: age, debility, PAD, DM, obesity, L knee infection, sepsis Please clarify and document your clinical opinion in the progress notes and discharge summary. Terms such as "probable", "suspected", "likely", "questionable", "possible", or "still to be ruled out" are acceptable. IF IN AGREEMENT, YOU MUST DOCUMENT ABOVE DIAGNOSTIC STATEMENT IN DAILY PROGRESS NOTES AND DISCHARGE SUMMARY. This document is not part of the patient's record. Thank You, Josselyn Grijalva RN [phone]
[2016-11-17 07:33] LABS: PHOSPHORUS 2.6 mg/dl (2.5-4.9)
--- NOTE | 2016-11-17 07:34 | Anesthesiology Progress Note ---
Anesthesia Post Op Note Date & Time Nov 17, 2016 at 07:32 Vital Signs Vital Signs Past 12 Hours Date Time Temp Pulse Resp B/P Pulse Ox O2 Delivery O2 Flow Rate FiO2 11/17/16 04:00 Room Air 11/17/16 03:02 36.9 84 19 146/74 97 Room Air 11/16/16 23:59 Room Air 11/16/16 23:33 36.8 79 20 148/74 97 Room Air 11/16/16 19:53 36.6 84 17 99 3.0 Notes Mental Status: alert / awake / arousable, participated in evaluation Pt Amnestic to Procedure: Yes Nausea / Vomiting: adequately controlled Pain: adequately controlled Airway Patency, RR, SpO2: stable & adequate BP & HR: stable & adequate Hydration State: stable & adequate Anesthetic Complications: no major complications apparent
[2016-11-17] MEDS: D5W AND NSS 1,000 ML IV SCH (07:37)
[2016-11-17] MEDS: FERROUS GLUCONATE 324 MG TAB PO SCH ×3 (07:38→16:56)
[2016-11-17] MEDS: DOCUSATE SODIUM 100 MG CAP PO SCH ×2 (07:40→20:38)
[2016-11-17] MEDS: ASPIRIN 81 MG ECTAB PO SCH ×2 (07:40→20:39)
[2016-11-17] MEDS: METOPROLOL TARTRATE 25 MG TAB PO SCH ×2 (07:40→20:39)
[2016-11-17] MEDS: MULTIVITAMIN TAB PO SCH (07:41)
[2016-11-17] MEDS: PANTOprazole SOD 40 MG TAB PO SCH (07:41)
[2016-11-17] MEDS: OXYCODONE HCL IR 5 MG TAB (IMMEDIATE RELEASE) PO PRN ×4 (07:45→23:40)
[2016-11-17] MEDS: AZTREONAM IV 1,000 MG in DEXTROSE 5% 100ML 100 ML IV SCH ×3 (07:47→23:39)
--- NOTE | 2016-11-17 08:57 | Pharmacy Progress Note ---
Glycemic Control: Progress Nt Date of Service Nov 17, 2016. Scope Glycemic Pharmacist consulted by Dr Betancourt on 11/14 for glycemic control and to write orders per [facility] inpatient glycemic control protocol. Objective Accuchecks BSG (last 24hrs): Test 11/16/16 12:24 11/16/16 13:14 11/16/16 16:20 11/16/16 17:54 Bedside Glucose 69 mg/dl (70-90) 85 mg/dl (70-90) 57 mg/dl (70-90) 88 mg/dl (70-90) Test 11/16/16 19:51 11/16/16 23:41 11/17/16 04:08 11/17/16 05:55 Bedside Glucose 79 mg/dl (70-90) 82 mg/dl (70-90) 82 mg/dl (70-90) Random Glucose 79 mg/dl (70-99) Test 11/17/16 07:01 Bedside Glucose 88 mg/dl (70-90) Laboratory Data (last 24hrs) Test 11/17/16 05:55 Anion Gap 8.0 mmol/L BUN/Creatinine Ratio 21.3 Blood Urea Nitrogen 15 mg/dl Creatinine 0.68 mg/dl Potassium Level 3.8 mmol/L Sodium Level 138 mmol/L White Blood Count 15.70 K/uL Recent Pertinent Medications Outpatient Anti-diabetic Regimen: * Glipizide ER 10mg qAM, Novolog QID per SS, Lantus 18 units BID * A1c = 7.7 % 10/20/16 The patient is currently receiving: * Basal insulin: On hold * Correctional Insulin: Novolog Correction per scale ACHS + 00,04 Goal Range: Low 140 mg/dL - High 180 mg/dL Correction Factor: 30 mg/dL/unit * Prandial insulin: No carb ratio at this time Risk Factors for Insulin Resistance: * Infection: Infected total knee replacement * IVF: D5NS @ 80 cc/hr * Recent Surgery: L TKR 10/22/16; OR 11/14 for ABX spacer * Diet: type 2 diabetes Assessment & Plan ASSESSMENT: 11/16/16 * Pt is a 66 yo female readmitted s/p L TKR on 10/22/16. Due to infection, patient taken to OR 11/14/16. * 11/14: All AM insulins held. Pt initiated on dextrose containing fluids. Pt hypotensive, started on pressors and sent to ICU. -MD started insulin drip that night for BSGs >350 mg/dL and dextrose containing fluids discontinued * 11/15: BSGs stabilized and patient looking much better, advanced to clears--> Transition back to basal/bolus * Patient received a total of 23 units (+ drip overlap) in the last 24 hours * Fasting BSG 61 mg/dL- D25 pushed per protocol * Patient asymptomatic- breakfast tray consumed without coverage due to ongoing emergencies in ICU * Lunch BSG 69 mg/dL- nurse called pharmacy, patient ate full tray plus juice and recheck was only 85 mg/dL * My plan today will be to hold all basal insulin until BSG >140 mg/dL and remove carb coverage due to sustained hypoglycemia 11/17/16 * Ms. Johnson received 0 units of insulin yesterday with all BSGs remaining below 90, even with dextrose IVFs running * Unsure of reason for continued "low" BSGs w/o need for insulin * Plan will be to continue with insulin orders and resume basal and/or carb ratio once BSGs become more elevated PLAN FOR INPATIENT GLYCEMIC CONTROL: * Continue to hold Lantus and carb coverage * Continue Novolog ACHS + 00,04 * Goal 140-180 mg/dL * CF 30 mg/dL/unit * Resume basal and/or carb coverage once BSGs above 180 OFF dextrose fluids * Please note that the plan above was derived based on current level of insulin resistance and hospital stress. These recommendations are appropriate for inpatient admission only. Plan of care upon discharge will need to be reassessed to avoid potential outpatient hypo/hyperglycemia. Thank you.
[2016-11-17] MEDS: MAGNESIUM SULFATE 1GM / D5W 1 GM in PREMIXED IN D5W 100 ML IV SCH ×2 (12:18→14:22)
--- NOTE | 2016-11-17 12:25 | Progress Note ---
Subjective Date of Service: Nov 17, 2016. Subjective Pt evaluation today including: conversation w/ patient, conversation w/ family , physical exam, chart review, lab review feels ok, blood culture, wound culture and OR culture all with MRSA, remains on dapto. repeat blood culture pending. no f/c. c/o pain in knee, asking for more pain meds. wbc improved from 22 to 15. all remaining ros reviewed and are negative. Objective Vital Signs Date Time Temp Pulse Resp B/P Pulse Ox O2 Delivery O2 Flow Rate FiO2 11/17/16 11:00 78 18 150/85 98 11/17/16 10:40 36.6 76 18 137/83 96 11/17/16 08:00 Room Air 11/17/16 04:00 Room Air 11/17/16 03:02 36.9 84 19 146/74 97 Room Air 11/16/16 23:59 Room Air 11/16/16 23:33 36.8 79 20 148/74 97 Room Air 11/16/16 19:53 36.6 84 17 99 3.0 11/16/16 18:00 36.4 82 16 102/65 15 Room Air 11/16/16 16:00 36.4 81 14 122/62 9 Room Air 11/16/16 16:00 Room Air 11/16/16 14:00 36.4 80 15 109/67 100 Room Air Physical Exam General Appearance: WD/WN, no apparent distress Eyes: normal inspection Neck: supple Respiratory/Chest: lungs clear, normal breath sounds, no respiratory distress Cardiovascular: regular rate, rhythm, no edema Abdomen: non tender, soft Neurologic/Psychiatric: alert, oriented x 3 Comments: vac in place bka incision c/d/i Laboratory Results Item Value Date Time Blood Culture - Final Complete 11/14/16 1540 Blood Staphylococcus Aureus Blood Culture - Final Complete 11/14/16 1327 Blood Staphylococcus Aureus Gram Stain - Final Resulted 11/14/16 1020 Joint Fluid/Space (Synovial) Knee Left Gram Stain - Final Resulted 11/13/16 1350 Joint Fluid/Space (Synovial) Knee Left Gram Stain - Final Complete 11/13/16 0000 Joint Fluid/Space (Synovial) Knee Left Last 24 Hours Test 11/16/16 12:24 11/16/16 13:14 11/16/16 16:20 11/16/16 17:54 Bedside Glucose 69 mg/dl 85 mg/dl 57 mg/dl 88 mg/dl Test 11/16/16 19:51 11/16/16 23:41 11/17/16 04:08 11/17/16 05:55 Bedside Glucose 79 mg/dl 82 mg/dl 82 mg/dl White Blood Count 15.70 K/uL Red Blood Count 2.57 M/uL Hemoglobin 7.4 g/dL Hematocrit 22.0 % Mean Corpuscular Volume 85.6 fL Mean Corpuscular Hemoglobin 28.8 pg Mean Corpuscular Hemoglobin Concent 33.6 g/dl RDW Standard Deviation 51.6 fL RDW Coefficient of Variation 16.6 % Platelet Count 338 K/uL Mean Platelet Volume 9.0 fL Sodium Level 138 mmol/L Potassium Level 3.8 mmol/L Chloride Level 107 mmol/L Carbon Dioxide Level 23 mmol/L Anion Gap 8.0 mmol/L Blood Urea Nitrogen 15 mg/dl Creatinine 0.68 mg/dl Est Creatinine Clear Calc Drug Dose 92.1 ml/min Estimated GFR () 104.9 Estimated GFR (Non- 90.5 BUN/Creatinine Ratio 21.3 Random Glucose 79 mg/dl Calcium Level 7.0 mg/dl Phosphorus Level 2.6 mg/dl Magnesium Level 1.4 mg/dl Test 11/17/16 07:01 11/17/16 11:10 Bedside Glucose 88 mg/dl 119 mg/dl Assessment and Plan (1) Infection of total left knee replacement Assessment & Plan: continue dapto, repeat blood cultures pending, needs echo (2) Leukocytosis Assessment & Plan: improving
[2016-11-17] MEDS: DAPTOmycin IV 600 MG in SODIUM CHLORIDE 0.9% 50ML 50 ML IV SCH (14:40)
--- NOTE | 2016-11-17 15:03 | Orthopedic Progress Note ---
Orthopedic Progress Note Date of Service Nov 17, 2016. Subjective Post OP Day: 3 Additional Notes: Pt lying in bed. Asleep upon arrival but easily awoken. No complaints presently. States she doesn't have much pain in the left knee today. Denies SOB, CP. Objective Prevena dressing intact. Some drainage noted on sponge of dressing but no overt drainage in the collection unit. Mild erythema over the distal lateral portion of the lower extremity. Edema noted of the left foot. Pulse not palpable but toes are pink with cap refill around 2 seconds. Moving toes and ankle well. Dressing on BKA intact and clean. Date Time Temp Pulse Resp B/P Pulse Ox O2 Delivery O2 Flow Rate FiO2 11/17/16 12:33 Room Air 11/17/16 12:00 99 18 141/81 99 11/17/16 11:30 51 18 141/81 99 11/17/16 11:00 78 18 150/85 98 11/17/16 10:40 36.6 76 18 137/83 96 11/17/16 08:00 Room Air 11/17/16 04:00 Room Air 11/17/16 03:02 36.9 84 19 146/74 97 Room Air 11/16/16 23:59 Room Air 11/16/16 23:33 36.8 79 20 148/74 97 Room Air 11/16/16 19:53 36.6 84 17 99 3.0 11/16/16 18:00 36.4 82 16 102/65 15 Room Air 11/16/16 16:00 36.4 81 14 122/62 9 Room Air 11/16/16 16:00 Room Air Laboratory Results 24 Hours: Test 11/17/16 05:55 Hematocrit 22.0 % Hemoglobin 7.4 g/dL Assessment & Plan Assessment: SEPTIC ARTHRITIS LEFT TOTAL KNEE ARTHROPLASTY -POD #3 s/p I&D, removal total knee implant, placement of antibiotic spacer and prevena wound vac -ID Consult, currently on Daptomycin,Aztreonam . -blood cultures positive for MRSA ; Knee cx's positive or MRSA -Dr Botello consulted. UTI -urine culture with Citrobacter ATRIAL FIBRILLATION DM2 -glycemic pharmacy consulted ACUTE BLOOD LOSS ANEMIA -transfused 3 units PRBC's during this admission - Hgb 7.4 today; transfusing 1 more unit PRBC's H/O DVT -S/P IVC filter Inhouse Planning Pain Management: Ultram, Morphine, Oxy IR DVT Prophylaxis: TEDs, SCDs, ASA, other (IVC Filter) Discharge Planning Discharge Planning: uncertain
[2016-11-17] MEDS: TRAMADOL HCL 50 MG TAB PO PRN ×2 (15:49→20:40)
--- NOTE | 2016-11-17 15:55 | OPERATIVE REPORT ---
DATE OF ADMISSION: 11/13/2016 PREOPERATIVE DIAGNOSIS: Infected left total knee arthroplasty. POSTOPERATIVE DIAGNOSIS: Infected left total knee arthroplasty. PROCEDURE: Removal of left total knee arthroplasty with placement of antibiotic articulated spacer utilizing a Biomet size 65 left femur, 10 x 71/75 poly, 20 x 8 patella. SURGEON: Caesar Ibarra DO RV DETAILER: FEMI Wallace who was necessary for prepping, draping, retraction, wound closure of fascia, subQ with skin. ESTIMATED BLOOD LOSS: 80 mL. COMPLICATIONS: None. TOURNIQUET TIME: 1 hour 20 minutes. HISTORY OF PRESENT ILLNESS: The patient presents as a 66-year-old white female who presents after having had infected wound in her right leg cede her left total knee arthroplasty which have been placed approximately 17 years prior. She previously had washout and a poly change of that knee and presents with the recurrence of infection ongoing pain about the knee. She has had washout x2 previously with poly change as well. She also subsequently for her infected right foot wound undergone a right below knee amputation. She is significantly compromised medically with multiple medical problems, presents today for washout with a removal of infected total knee arthroplasty and the insertion of antibiotic spacer at the time of removal of the implants was noted to be evidence of elsa pus at the interface of the implant on the tibia and femoral side. The intraoperative tissue sent membrane at the tibial and femoral interfaces; on the femoral side 15 per high power field and tibial side 5 per high power field. Intraoperative gram stains were also taken as well as wound cultures of the synovial fluid. DESCRIPTION OF PROCEDURE: After proper prepping and draping of the left lower extremity, the distal most aspect of the incision sutures removed. Incision was opened in line with the previous incision. The medial parapatellar incision was made. The patella was subluxed lateralward. Femoral components, tibial component, and patellar component were all removed utilizing an Ultra-Drive. There was noted be elsa pus on the femoral component as well as tibial component as noted above. At the interface of the bone after removal of the implant, there was noted to be evidence of purulence which was removed. There was 9 liters of saline solution with bacitracin were washed through the knee joint. All cement was meticulously removed. Synovectomy was performed. Having performed a thorough and complete synovectomy, the Versajet was also used to thoroughly irrigate and debride all tissues. All purulent material and tissue was removed. Sheets and drapes were reapplied and gloves were changed prior to further washing of the knee. Subsequently, trials were loosely cemented utilizing antibiotic impregnated methylmethacrylate on the femoral and tibial component as well as the patellar component. Antibiotic spacer having been formed was loosely fit on the tibia as well. Meticulous hemostasis was obtained and maintained at all times. Subsequently, the medial parapatellar incision was closed with #1 Vicryl, subQ was closed with 2-0 Vicryl, and skin was closed with skin clips and sutured with 3-0 nylon. A sterile compression dressing was placed as well as a Prevena dressing. A medium bore Hemovac had been placed in the deep wound. The patient tolerated the procedure well and was taken to recovery in stable condition. DEB
[2016-11-17] MEDS ORDERED: NURSING VERBAL MED ORDER ONE (17:00)
[2016-11-17] MEDS ORDERED: FLUCONAZOLE 100 MG TAB PO ONE (17:30)
--- NOTE | 2016-11-17 19:37 | Progress Note ---
Medicine Progress Note Date & Time of Visit: Nov 17, 2016 at 19:30. Subjective Patient seen and examined. Family present at bedside. Denies complaints. Pain controlled. Objective Last 8 Hrs Date Time Temp Pulse Resp B/P Pulse Ox O2 Delivery O2 Flow Rate FiO2 11/17/16 18:54 36.5 86 20 152/88 95 Room Air 11/17/16 16:00 Room Air 11/17/16 15:30 36.3 89 20 146/68 94 Room Air 11/17/16 12:33 Room Air 11/17/16 12:00 99 18 141/81 99 Physical Exam: General-awake; alert; NAD Eyes-EOMI; no scleral icterus Neck-no stridor; trachea midline Lungs-CTA bilaterally anteriorly Heart-RRR; no m/r/g Abdomen-soft; NTND; nBS Extremities-left leg bandage c/d/i Neuro-no focal deficits Laboratory Results: Last 24 Hours Test 11/16/16 19:51 11/16/16 23:41 11/17/16 04:08 11/17/16 05:55 Bedside Glucose 79 mg/dl 82 mg/dl 82 mg/dl White Blood Count 15.70 K/uL Red Blood Count 2.57 M/uL Hemoglobin 7.4 g/dL Hematocrit 22.0 % Mean Corpuscular Volume 85.6 fL Mean Corpuscular Hemoglobin 28.8 pg Mean Corpuscular Hemoglobin Concent 33.6 g/dl RDW Standard Deviation 51.6 fL RDW Coefficient of Variation 16.6 % Platelet Count 338 K/uL Mean Platelet Volume 9.0 fL Sodium Level 138 mmol/L Potassium Level 3.8 mmol/L Chloride Level 107 mmol/L Carbon Dioxide Level 23 mmol/L Anion Gap 8.0 mmol/L Blood Urea Nitrogen 15 mg/dl Creatinine 0.68 mg/dl Est Creatinine Clear Calc Drug Dose 92.1 ml/min Estimated GFR () 104.9 Estimated GFR (Non- 90.5 BUN/Creatinine Ratio 21.3 Random Glucose 79 mg/dl Calcium Level 7.0 mg/dl Phosphorus Level 2.6 mg/dl Magnesium Level 1.4 mg/dl Test 11/17/16 07:01 11/17/16 11:10 11/17/16 16:05 Bedside Glucose 88 mg/dl 119 mg/dl 190 mg/dl Assessment & Plan SEPSIS with SEPTIC ARTHRITIS LEFT KNEE -taken to OR 11/14 for removal of implants with insertion of antibiotic spacer -ID consulted -patient on daptomycin -synovial cultures with MRSA -weaned off pressor support MRSA BACTEREMIA -on daptomycin -ID consulted -blood cultures 11/14 with staph aureus -blood cultures 11/16 pending -TTE with no appreciable valvular vegetations UTI -urine culture with alvarez-sensitive citrobacter -patient on aztreonam ATRIAL FIBRILLATION -weaned off amiodarone drip -restarted on metoprolol -anticoagulation currently on hold OLIGURIC ANNETTE -resolved with IVF's DM2 -hold glipizide -insulin coverage -glycemic pharmacy consulted ACUTE BLOOD LOSS ANEMIA -transfused 3units PRBC's -Hgb stable HTN -post operative hypotension requiring pressor support -metoprolol restarted Pressure ulcer of right medial buttock, stage 2, POA and Pressure ulcer of medial sacrum, stage 2, not POA -- Wound care consulted H/O DVT -S/P IVC filter DVT PROPHYLAXIS: aspirin BID Current Inpatient Medications: Current Inpatient Medications Medications (Trade) Dose Ordered Sig/Denisse Route Start Time Stop Time Status Last Admin Dose Admin Pantoprazole Sodium (Protonix Tab) 40 mg QAM PO 11/14/16 09:00 12/14/16 08:59 11/17/16 07:41 40 MG Acetaminophen (Tylenol Tab) 650 mg Q4H PRN PO 11/13/16 13:00 12/13/16 12:59 11/13/16 23:43 650 MG Docusate Sodium (coLACE CAP) 100 mg BID PO 11/13/16 21:00 12/13/16 20:59 11/17/16 07:40 100 MG Folic Acid (Folvite Tab) 1 mg DAILY PO 11/14/16 09:00 12/14/16 08:59 11/17/16 07:41 1 MG Tramadol HCl (Ultram Tab) 50 mg Q4H PRN PO 11/13/16 13:00 12/13/16 12:59 11/17/16 15:49 50 MG Morphine Sulfate (MoRPHine SULFATE INJ) 2 mg Q4H PRN IV 11/13/16 13:30 11/27/16 13:29 11/15/16 10:37 2 MG Morphine Sulfate (MoRPHine SULFATE INJ) 4 mg Q4H PRN IV 11/13/16 13:30 11/27/16 13:29 11/17/16 03:16 4 MG Morphine Sulfate 6 mg 6 mg Q4H PRN IV 11/13/16 13:30 11/27/16 13:29 Daptomycin/Sodium Chloride (Cubicin IV/Nss 50ml) 62 ml @ 120 mls/hr Q24H IV 11/13/16 14:00 12/25/16 13:59 11/17/16 14:40 120 MLS/HR Glucose (Glucose 40% Gel) 15-30 GRAMS 15 GRAMS... UD PRN PO 11/13/16 14:30 12/13/16 14:29 Glucose (Glucose Chew Tab) 4-8 Tablets 4 Tabl... UD PRN PO 11/13/16 14:30 12/13/16 14:29 Dextrose (Dextrose 50% 50ML Syringe) 25-50ML OF 50% DW IV FOR... UD PRN IV 11/13/16 14:30 12/13/16 14:29 11/16/16 16:36 50 ML Glucagon (Glucagon Inj) 1 mg UD PRN SQ 11/13/16 14:30 12/13/16 14:29 Oxycodone HCl (Roxicodone Immediate Rel Tab) 1 TABLET FOR PAIN RATING... Q4H PRN PO 11/14/16 11:45 11/28/16 11:44 11/17/16 19:10 10 MG Magnesium Hydroxide (Milk Of Magnesia Susp) 30 ml Q6H PRN PO 11/14/16 11:45 12/14/16 11:44 Bisacodyl (Dulcolax Supp) 10 mg DAILY PRN KS 11/14/16 11:45 12/14/16 11:44 Senna (Senokot Tab) 17.2 mg HS PO 11/14/16 21:00 12/14/16 20:59 11/16/16 21:21 17.2 MG Diphenhydramine HCl (Benadryl Inj) 25 mg Q8H PRN IV 11/14/16 11:45 12/14/16 11:44 Al Hydrox/Mg Hydrox/Simethicone (Maalox Max Susp) 15 ml Q4H PRN PO 11/14/16 11:45 12/14/16 11:44 Multivitamins (Multivitamin Tab) 1 tab QAM PO 11/15/16 09:00 12/15/16 08:59 11/17/16 07:41 1 TAB Ondansetron HCl (Zofran Inj) 4 mg Q6H PRN IV 11/14/16 11:45 12/14/16 11:44 11/14/16 16:03 4 MG Ferrous Gluconate (Ferrous Gluconate Tab) 324 mg TIDM PO 11/14/16 12:30 12/14/16 12:29 11/17/16 16:56 324 MG Aspirin 81 mg 81 mg BID PO 11/14/16 21:00 12/14/16 20:59 11/17/16 07:40 81 MG Aztreonam/Dextrose (Azactam IV/D5 100ml) 110 ml @ 100 mls/hr Q8@0000,0800,1600 IV 11/14/16 17:00 11/24/16 15:59 11/17/16 15:44 100 MLS/HR Miscellaneous Information (Consult Glycemic Management Pharmacy) 1 ea UD PRN N/A 11/14/16 21:30 12/14/16 21:29 Heparin Sodium (Porcine) (Heparin 10 Unit/ ml 5 ml Flush) 5 ml PRN PRN FLUSH 11/15/16 01:30 12/15/16 01:29 Insulin Aspart (novoLOG ASPART) SLIDING SCALE ACHS SC 11/15/16 16:00 12/15/16 15:59 11/17/16 16:15 1 UNITS Metoprolol Tartrate (Lopressor Tab) 25 mg BID PO 11/15/16 21:00 12/15/16 20:59 11/17/16 07:40 25 MG Insulin Aspart (novoLOG ASPART) SLIDING SCALE 0000,0400 SC 11/17/16 00:00 12/17/16 00:00 Miconazole Nitrate (Desenex Powder) 1 appln BID PRN EXT 11/16/16 17:00 12/16/16 16:59
[2016-11-17] MEDS: SENNA 8.6 MG TAB PO SCH (20:38)
[2016-11-18] MEDS: INSULIN ASPART 100 UNITS/ML 3 ML PEN SC SCH ×5 (04:00→20:45)
[2016-11-18 04:23] VITALS: BP 165/93; PULSE 77; TEMP 36.6; O2SAT 97
[2016-11-18 06:09] LABS: MEAN CELL VOLUME 85.9 fL (80-100); MEAN CORPUSCULAR HEMOGLOBIN 29.6 pg (25-34); MEAN CORPUSCULAR HGB CONC 34.4 g/dl (32-36); PLATELET COUNT 357 K/uL (130-400); RED BLOOD COUNT 2.91 M/uL (4.2-5.4); WHITE BLOOD COUNT 13.33 K/uL (4.8-10.8)
[2016-11-18] MEDS: MICONAZOLE NITRATE POWDER 43 GM EXT PRN (06:20)
[2016-11-18 06:51] LABS: BUN/CREATININE RATIO 22.6 (10-20); CALCIUM 7.1 mg/dl (8.5-10.1); CREATININE 0.45 mg/dl (0.60-1.20); MAGNESIUM 1.5 mg/dl (1.8-2.4); POTASSIUM 3.8 mmol/L (3.5-5.1)
[2016-11-18 07:32] VITALS: BP 146/72; PULSE 70; TEMP 36.5; O2SAT 92
[2016-11-18] MEDS: METOPROLOL TARTRATE 25 MG TAB PO SCH ×2 (08:20→19:43)
[2016-11-18] MEDS: ASPIRIN 81 MG ECTAB PO SCH ×2 (08:21→19:43)
[2016-11-18] MEDS: PANTOprazole SOD 40 MG TAB PO SCH (08:21)
[2016-11-18] MEDS: DOCUSATE SODIUM 100 MG CAP PO SCH ×2 (08:21→19:42)
[2016-11-18] MEDS: FERROUS GLUCONATE 324 MG TAB PO SCH ×3 (08:21→17:30)
[2016-11-18] MEDS: MULTIVITAMIN TAB PO SCH (08:21)
[2016-11-18] MEDS: AZTREONAM IV 1,000 MG in DEXTROSE 5% 100ML 100 ML IV SCH (08:35)
[2016-11-18 11:41] VITALS: BP 138/69; PULSE 69; TEMP 36.7; O2SAT 95
--- NOTE | 2016-11-18 12:01 | Orthopedic Progress Note ---
Orthopedic Progress Note Date of Service Nov 18, 2016. Subjective Post OP Day: 4 Reports: feeling well, pain controlled w PO medications, Denies: SOB, chest pain , complaints, light headedness, nausea / vomiting, using MULTIPLE SCLEROSIS NURSE Objective dressing C/D/I (prevena intact), A&O x3, toes mobile foot warm to touch, no palpable DP pulse, able to wiggle toes, ankle pumps. sensation intact Date Time Temp Pulse Resp B/P Pulse Ox O2 Delivery O2 Flow Rate FiO2 11/18/16 11:41 36.7 69 18 138/69 95 11/18/16 08:00 Room Air 11/18/16 07:32 36.5 70 18 146/72 92 11/18/16 04:23 36.6 77 18 165/93 97 Room Air 11/18/16 04:02 Room Air 11/18/16 00:02 Room Air 11/17/16 23:56 36.6 73 17 145/78 94 Room Air 11/17/16 20:04 Room Air 11/17/16 18:54 36.5 86 20 152/88 95 Room Air 11/17/16 16:00 Room Air 11/17/16 15:30 36.3 89 20 146/68 94 Room Air 11/17/16 12:33 Room Air 11/17/16 12:00 99 18 141/81 99 Laboratory Results 24 Hours: Test 11/18/16 05:50 Hematocrit 25.0 % Hemoglobin 8.6 g/dL Assessment & Plan Assessment: SEPTIC ARTHRITIS LEFT TOTAL KNEE ARTHROPLASTY -POD #4 s/p I&D, removal total knee implant, placement of antibiotic spacer and prevena wound vac -ID Consult, currently on Daptomycin,Aztreonam . -blood cultures positive for MRSA ; Knee cx's positive or MRSA, latest blood cultures from 11/16/16 pending. -Dr Botello consulted. UTI -urine culture with Citrobacter ATRIAL FIBRILLATION DM2 -glycemic pharmacy consulted ACUTE BLOOD LOSS ANEMIA -transfused 4 units PRBC's during this admission - Hgb 8.6 today -S/P IVC filter (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
[2016-11-18] MEDS: INSULIN GLARGINE SOLOSTAR 100 UNITS/ML 3 ML PEN SC SCH (12:19)
--- NOTE | 2016-11-18 14:11 | Pharmacy Progress Note ---
Glycemic Control: Progress Nt Date of Service Nov 18, 2016. Scope Glycemic Pharmacist consulted by Dr Betancourt on 11/13 for glycemic control and to write orders per [facility] inpatient glycemic control protocol. Objective Accuchecks BSG (last 24hrs): Test 11/17/16 16:05 11/17/16 20:02 11/17/16 23:43 11/18/16 04:22 Bedside Glucose 190 mg/dl (70-90) 186 mg/dl (70-90) 150 mg/dl (70-90) 144 mg/dl (70-90) Test 11/18/16 05:50 11/18/16 06:46 11/18/16 11:05 Random Glucose 144 mg/dl (70-99) Bedside Glucose 143 mg/dl (70-90) 236 mg/dl (70-90) Laboratory Data (last 24hrs) Test 11/18/16 05:50 Anion Gap 7.0 mmol/L BUN/Creatinine Ratio 22.6 Blood Urea Nitrogen 10 mg/dl Creatinine 0.45 mg/dl Potassium Level 3.8 mmol/L Sodium Level 136 mmol/L White Blood Count 13.33 K/uL Recent Pertinent Medications Outpatient Anti-diabetic Regimen: * Glipizide ER 10mg qAM, Novolog QID per SS, Lantus 18 units BID * A1c = 7.7 % 10/20/16 The patient is currently receiving: * Basal insulin: On hold * Correctional Insulin: Novolog Correction per scale ACHS + 00,04 Goal Range: Low 140 mg/dL - High 180 mg/dL Correction Factor: 30 mg/dL/unit * Prandial insulin: No carb ratio at this time Risk Factors for Insulin Resistance: * Infection: Infected total knee replacement * IVF: D5NS @ 80 cc/hr - d/c'd yesterday at 1700 * Recent Surgery: L TKR 10/22/16; OR 11/14 for ABX spacer * Diet: type 2 diabetes Assessment & Plan ASSESSMENT: 11/16/16 * Pt is a 66 yo female readmitted s/p L TKR on 10/22/16. Due to infection, patient taken to OR 11/14/16. * 11/14: All AM insulins held. Pt initiated on dextrose containing fluids. Pt hypotensive, started on pressors and sent to ICU. -MD started insulin drip that night for BSGs >350 mg/dL and dextrose containing fluids discontinued * 11/15: BSGs stabilized and patient looking much better, advanced to clears--> Transition back to basal/bolus * Patient received a total of 23 units (+ drip overlap) in the last 24 hours * Fasting BSG 61 mg/dL- D25 pushed per protocol * Patient asymptomatic- breakfast tray consumed without coverage due to ongoing emergencies in ICU * Lunch BSG 69 mg/dL- nurse called pharmacy, patient ate full tray plus juice and recheck was only 85 mg/dL * My plan today will be to hold all basal insulin until BSG >140 mg/dL and remove carb coverage due to sustained hypoglycemia 11/17/16 * Ms. Johnson received 0 units of insulin yesterday with all BSGs remaining below 90, even with dextrose IVFs running * Unsure of reason for continued "low" BSGs w/o need for insulin * Plan will be to continue with insulin orders and resume basal and/or carb ratio once BSGs become more elevated 11/18/16 * BSGs have finally started to increase off dextrose IVFs - up to 236 at lunchtime today * Of note, RN reported to me later that pt takes 2-3 hrs to eat meals so this may have been a post-prandial BSG; regardless, BSGs are increasing enough to warrant resumption of insulin * Due to the recent history of lows, will be conservative with insulin resumption (~25% of outpatient Lantus dose) and a fairly loose CR * Will continue overnight accuchecks but only a single check PLAN FOR INPATIENT GLYCEMIC CONTROL: * Resume Lantus daily as per "sliding scale" * 5 units for BSG 140 or less * 10 units for BSG above 140 * Continue Novolog ACHS + 0200 only * Goal 140-180 mg/dL * CF 30 mg/dL/unit * Resume CR 1 unit per 15 gm CHO consumed * Please note that the plan above was derived based on current level of insulin resistance and hospital stress. These recommendations are appropriate for inpatient admission only. Plan of care upon discharge will need to be reassessed to avoid potential outpatient hypo/hyperglycemia. Thank you.
[2016-11-18] MEDS: DAPTOmycin IV 600 MG in SODIUM CHLORIDE 0.9% 50ML 50 ML IV SCH (14:21)
--- NOTE | 2016-11-18 14:52 | Progress Note ---
Subjective Date of Service: Nov 18, 2016. Subjective pt repeat cultures negative, tolerating dapto. wbc continues to improve. Previous blood and wound cultures with MRSA. afebrile overnight. Objective Vital Signs Date Time Temp Pulse Resp B/P Pulse Ox O2 Delivery O2 Flow Rate FiO2 11/18/16 12:00 Room Air 11/18/16 11:41 36.7 69 18 138/69 95 11/18/16 08:00 Room Air 11/18/16 07:32 36.5 70 18 146/72 92 11/18/16 04:23 36.6 77 18 165/93 97 Room Air 11/18/16 04:02 Room Air 11/18/16 00:02 Room Air 11/17/16 23:56 36.6 73 17 145/78 94 Room Air 11/17/16 20:04 Room Air 11/17/16 18:54 36.5 86 20 152/88 95 Room Air 11/17/16 16:00 Room Air 11/17/16 15:30 36.3 89 20 146/68 94 Room Air Laboratory Results Item Value Date Time Blood Culture - Preliminary Resulted 11/16/16 1006 Blood NO GROWTH TO DATE. Blood Culture - Preliminary Resulted 11/16/16 0840 Blood NO GROWTH TO DATE. Blood Culture - Final Complete 11/14/16 1540 Blood Staphylococcus Aureus Blood Culture - Final Complete 11/14/16 1327 Blood Staphylococcus Aureus Gram Stain - Final Complete 11/13/16 0000 Joint Fluid/Space (Synovial) Knee Left Gram Stain - Final Resulted 11/14/16 1020 Joint Fluid/Space (Synovial) Knee Left Last 24 Hours Test 11/17/16 16:05 11/17/16 20:02 11/17/16 23:43 11/18/16 04:22 Bedside Glucose 190 mg/dl 186 mg/dl 150 mg/dl 144 mg/dl Test 11/18/16 05:50 11/18/16 06:46 11/18/16 11:05 White Blood Count 13.33 K/uL Red Blood Count 2.91 M/uL Hemoglobin 8.6 g/dL Hematocrit 25.0 % Mean Corpuscular Volume 85.9 fL Mean Corpuscular Hemoglobin 29.6 pg Mean Corpuscular Hemoglobin Concent 34.4 g/dl RDW Standard Deviation 49.3 fL RDW Coefficient of Variation 15.9 % Platelet Count 357 K/uL Mean Platelet Volume 9.0 fL Sodium Level 136 mmol/L Potassium Level 3.8 mmol/L Chloride Level 104 mmol/L Carbon Dioxide Level 25 mmol/L Anion Gap 7.0 mmol/L Blood Urea Nitrogen 10 mg/dl Creatinine 0.45 mg/dl Est Creatinine Clear Calc Drug Dose 138.2 ml/min Estimated GFR () 120.2 Estimated GFR (Non- 103.7 BUN/Creatinine Ratio 22.6 Random Glucose 144 mg/dl Calcium Level 7.1 mg/dl Magnesium Level 1.5 mg/dl Bedside Glucose 143 mg/dl 236 mg/dl Assessment and Plan (1) Infection of total left knee replacement Assessment & Plan: continue with dapto, follow repeat cultures, negative to date. suggest echo r/o veg. will need long course of IV abx, stop aztreonam. would also suggest ultrasound upper ext to r/o clot at picc site, however, repeat cultures negative to date. (2) Leukocytosis
[2016-11-18 15:39] VITALS: BP 132/63; PULSE 84; TEMP 36.8; O2SAT 95
[2016-11-18] MEDS: TRAMADOL HCL 50 MG TAB PO PRN (17:31)
--- NOTE | 2016-11-18 18:40 | Progress Note ---
Subjective Date of Service: Nov 18, 2016. Subjective Pt evaluation today including: conversation w/ patient, physical exam, lab review, review of studies, review of inpatient medication list Saw/examined the patient in room 235 She is tired and lack of appetite No fevers/chills No other complaints at this time Review of Systems Constitutional: + fatigue, + weakness, No chills, No fever Respiratory: No shortness of breath Cardiac: No chest pain Abdomen: No diarrhea, No nausea, No pain, No vomiting Musculoskeletal: No joint pain Medications Current Inpatient Medications Medications (Trade) Dose Ordered Sig/Denisse Route Start Time Stop Time Status Last Admin Dose Admin Pantoprazole Sodium (Protonix Tab) 40 mg QAM PO 11/14/16 09:00 12/14/16 08:59 11/18/16 08:21 40 MG Acetaminophen (Tylenol Tab) 650 mg Q4H PRN PO 11/13/16 13:00 12/13/16 12:59 11/13/16 23:43 650 MG Docusate Sodium (coLACE CAP) 100 mg BID PO 11/13/16 21:00 12/13/16 20:59 11/18/16 08:21 100 MG Folic Acid (Folvite Tab) 1 mg DAILY PO 11/14/16 09:00 12/14/16 08:59 11/18/16 08:21 1 MG Tramadol HCl (Ultram Tab) 50 mg Q4H PRN PO 11/13/16 13:00 12/13/16 12:59 11/18/16 17:31 50 MG Morphine Sulfate (MoRPHine SULFATE INJ) 2 mg Q4H PRN IV 11/13/16 13:30 11/27/16 13:29 11/15/16 10:37 2 MG Morphine Sulfate (MoRPHine SULFATE INJ) 4 mg Q4H PRN IV 11/13/16 13:30 11/27/16 13:29 11/17/16 03:16 4 MG Morphine Sulfate 6 mg 6 mg Q4H PRN IV 11/13/16 13:30 11/27/16 13:29 Daptomycin/Sodium Chloride (Cubicin IV/Nss 50ml) 62 ml @ 120 mls/hr Q24H IV 11/13/16 14:00 12/25/16 13:59 11/18/16 14:21 120 MLS/HR Glucose (Glucose 40% Gel) 15-30 GRAMS 15 GRAMS... UD PRN PO 11/13/16 14:30 12/13/16 14:29 Glucose (Glucose Chew Tab) 4-8 Tablets 4 Tabl... UD PRN PO 11/13/16 14:30 12/13/16 14:29 Dextrose (Dextrose 50% 50ML Syringe) 25-50ML OF 50% DW IV FOR... UD PRN IV 11/13/16 14:30 12/13/16 14:29 11/16/16 16:36 50 ML Glucagon (Glucagon Inj) 1 mg UD PRN SQ 11/13/16 14:30 12/13/16 14:29 Oxycodone HCl (Roxicodone Immediate Rel Tab) 1 TABLET FOR PAIN RATING... Q4H PRN PO 11/14/16 11:45 11/28/16 11:44 11/17/16 23:40 10 MG Magnesium Hydroxide (Milk Of Magnesia Susp) 30 ml Q6H PRN PO 11/14/16 11:45 12/14/16 11:44 Bisacodyl (Dulcolax Supp) 10 mg DAILY PRN NE 11/14/16 11:45 12/14/16 11:44 Senna (Senokot Tab) 17.2 mg HS PO 11/14/16 21:00 12/14/16 20:59 11/16/16 21:21 17.2 MG Diphenhydramine HCl (Benadryl Inj) 25 mg Q8H PRN IV 11/14/16 11:45 12/14/16 11:44 Al Hydrox/Mg Hydrox/Simethicone (Maalox Max Susp) 15 ml Q4H PRN PO 11/14/16 11:45 12/14/16 11:44 Multivitamins (Multivitamin Tab) 1 tab QAM PO 11/15/16 09:00 12/15/16 08:59 11/18/16 08:21 1 TAB Ondansetron HCl (Zofran Inj) 4 mg Q6H PRN IV 11/14/16 11:45 12/14/16 11:44 11/14/16 16:03 4 MG Ferrous Gluconate (Ferrous Gluconate Tab) 324 mg TIDM PO 11/14/16 12:30 12/14/16 12:29 11/18/16 17:30 324 MG Aspirin (Ecotrin Tab) 81 mg BID PO 11/14/16 21:00 12/14/16 20:59 11/18/16 08:21 81 MG Miscellaneous Information (Consult Glycemic Management Pharmacy) 1 ea UD PRN N/A 11/14/16 21:30 12/14/16 21:29 Heparin Sodium (Porcine) (Heparin 10 Unit/ ml 5 ml Flush) 5 ml PRN PRN FLUSH 11/15/16 01:30 12/15/16 01:29 Insulin Aspart (novoLOG ASPART) SLIDING SCALE ACHS SC 11/15/16 16:00 12/15/16 15:59 11/18/16 12:18 4 UNITS Metoprolol Tartrate (Lopressor Tab) 25 mg BID PO 11/15/16 21:00 12/15/16 20:59 11/18/16 08:20 25 MG Miconazole Nitrate (Desenex Powder) 1 appln BID PRN EXT 11/16/16 17:00 12/16/16 16:59 11/18/16 06:20 1 APPLN Insulin Glargine (Lantus Solostar Pen) see protocol text QAM SC 11/18/16 12:00 12/18/16 11:59 11/18/16 12:19 10 UNIT Insulin Aspart (novoLOG ASPART) SLIDING SCALE 0200 ONCE SC 11/19/16 02:00 11/19/16 02:01 Objective Vital Signs Date Time Temp Pulse Resp B/P Pulse Ox O2 Delivery O2 Flow Rate FiO2 11/18/16 16:00 Room Air 11/18/16 15:39 36.8 84 18 132/63 95 11/18/16 12:00 Room Air 11/18/16 11:41 36.7 69 18 138/69 95 11/18/16 08:00 Room Air 11/18/16 07:32 36.5 70 18 146/72 92 11/18/16 04:23 36.6 77 18 165/93 97 Room Air 11/18/16 04:02 Room Air 11/18/16 00:02 Room Air 11/17/16 23:56 36.6 73 17 145/78 94 Room Air 11/17/16 20:04 Room Air 11/17/16 18:54 36.5 86 20 152/88 95 Room Air Physical Exam General Appearance: no apparent distress Respiratory/Chest: lungs clear, normal breath sounds, no respiratory distress, no accessory muscle use Cardiovascular: regular rate, rhythm, no edema, no murmur Extremities: + pertinent finding (no swelling, left knee bandaged) Laboratory Results Last 24 Hours Test 11/17/16 20:02 11/17/16 23:43 11/18/16 04:22 11/18/16 05:50 Bedside Glucose 186 mg/dl 150 mg/dl 144 mg/dl White Blood Count 13.33 K/uL Red Blood Count 2.91 M/uL Hemoglobin 8.6 g/dL Hematocrit 25.0 % Mean Corpuscular Volume 85.9 fL Mean Corpuscular Hemoglobin 29.6 pg Mean Corpuscular Hemoglobin Concent 34.4 g/dl RDW Standard Deviation 49.3 fL RDW Coefficient of Variation 15.9 % Platelet Count 357 K/uL Mean Platelet Volume 9.0 fL Sodium Level 136 mmol/L Potassium Level 3.8 mmol/L Chloride Level 104 mmol/L Carbon Dioxide Level 25 mmol/L Anion Gap 7.0 mmol/L Blood Urea Nitrogen 10 mg/dl Creatinine 0.45 mg/dl Est Creatinine Clear Calc Drug Dose 138.2 ml/min Estimated GFR () 120.2 Estimated GFR (Non- 103.7 BUN/Creatinine Ratio 22.6 Random Glucose 144 mg/dl Calcium Level 7.1 mg/dl Magnesium Level 1.5 mg/dl Test 11/18/16 06:46 11/18/16 11:05 11/18/16 16:20 Bedside Glucose 143 mg/dl 236 mg/dl 136 mg/dl Assessment and Plan SEPSIS with SEPTIC ARTHRITIS LEFT KNEE MRSA BACTEREMIA 11/18 appreciate ID input appreciate orthopedic input s/p I&D on 11/14 continue Daptomycin post-operatively, patient required vasopressor support 11/17 -taken to OR 11/14 for removal of implants with insertion of antibiotic spacer -ID consulted -patient on daptomycin -synovial cultures with MRSA -weaned off pressor support UTI d/c Azactam ATRIAL FIBRILLATION required amiodarone drip due to hypotension now b-jodie restarted OLIGURIC ANNETTE -resolved with IVF's DM2 -hold glipizide -insulin coverage -glycemic pharmacy consulted ACUTE BLOOD LOSS ANEMIA - s/p 4 units PRBCs -transfused 4units PRBC's -Hgb stable HTN cont. b-jodie Pressure ulcer of right medial buttock, stage 2, POA and Pressure ulcer of medial sacrum, stage 2, not POA -- Wound care consulted H/O DVT -S/P IVC filter DVT PROPHYLAXIS: aspirin BID
[2016-11-18 19:03] VITALS: BP 146/77; PULSE 94; TEMP 37.1; O2SAT 96
[2016-11-18] MEDS: SENNA 8.6 MG TAB PO SCH (19:42)
[2016-11-18] MEDS: OXYCODONE HCL IR 5 MG TAB (IMMEDIATE RELEASE) PO PRN (19:44)
[2016-11-18] MEDS ORDERED: MAGNESIUM SULFATE 1GM / D5W 1 GM in PREMIXED IN D5W 100 ML IV ONE (20:00)
[2016-11-18 23:45] VITALS: BP 117/73; PULSE 76; TEMP 36.9; O2SAT 97
[2016-11-19] VITALS (7 sets, daily range): BP systolic 128–161; BP diastolic 63–93; PULSE 68–92; TEMP 36.5–36.9; O2SAT 92–96
[2016-11-19] MEDS ORDERED: INSULIN ASPART 100 UNITS/ML 3 ML PEN SC ONE (02:00)
[2016-11-19] MEDS: OXYCODONE HCL IR 5 MG TAB (IMMEDIATE RELEASE) PO PRN (05:15)
[2016-11-19] MEDS: ONDANSETRON INJ 2 MG/ML 2 ML VIAL IV PRN ×2 (05:31→23:46)
[2016-11-19] MEDS: MICONAZOLE NITRATE POWDER 43 GM EXT PRN (05:39)
[2016-11-19 06:12] LABS: HEMATOCRIT 26.9 % (37-47); MEAN CELL VOLUME 86.2 fL (80-100); MEAN CORPUSCULAR HEMOGLOBIN 28.8 pg (25-34); MEAN CORPUSCULAR HGB CONC 33.5 g/dl (32-36); MEAN PLATELET VOLUME 8.7 fL (7.4-10.4); PLATELET COUNT 512 K/uL (130-400); RED BLOOD COUNT 3.12 M/uL (4.2-5.4); WHITE BLOOD COUNT 12.97 K/uL (4.8-10.8)
[2016-11-19 06:29] LABS: BUN/CREATININE RATIO 17.6 (10-20); CREATININE 0.37 mg/dl (0.60-1.20); MAGNESIUM 1.4 mg/dl (1.8-2.4); POTASSIUM 3.3 mmol/L (3.5-5.1)
[2016-11-19] MEDS ORDERED: POTASSIUM CHLORIDE 10 MEQ TABCR PO STA (06:39)
[2016-11-19] MEDS ORDERED: MAGNESIUM SULFATE 1GM / D5W 1 GM in PREMIXED IN D5W 100 ML IV SCH (06:45)
[2016-11-19] MEDS: DOCUSATE SODIUM 100 MG CAP PO SCH ×2 (08:16→20:06)
[2016-11-19] MEDS: FERROUS GLUCONATE 324 MG TAB PO SCH ×3 (08:16→17:01)
[2016-11-19] MEDS: ASPIRIN 81 MG ECTAB PO SCH ×2 (08:16→20:07)
[2016-11-19] MEDS: METOPROLOL TARTRATE 25 MG TAB PO SCH ×2 (08:17→20:08)
[2016-11-19] MEDS: MULTIVITAMIN TAB PO SCH (08:17)
[2016-11-19] MEDS: PANTOprazole SOD 40 MG TAB PO SCH (08:17)
[2016-11-19] MEDS: INSULIN ASPART 100 UNITS/ML 3 ML PEN SC SCH ×4 (08:18→20:13)
[2016-11-19] MEDS: INSULIN GLARGINE SOLOSTAR 100 UNITS/ML 3 ML PEN SC SCH (08:19)
[2016-11-19] MEDS: TRAMADOL HCL 50 MG TAB PO PRN ×4 (08:33→23:47)
--- NOTE | 2016-11-19 11:34 | Orthopedic Progress Note ---
Orthopedic Progress Note Date of Service Nov 19, 2016. Subjective Post OP Day: 5 Additional Notes: Having some left knee pain this AM secondary to dangling knee at bedside with PT earlier. No other complaints this AM. Objective calves soft nontender (LLE; denies pain posterior right thigh and remainder of calf.), dressing C/D/I (Prevena dressing with mild drainage on sponge portion that is seeping under the tegaderm portion.), incision C/D/I (BKA incision benign), A&O x3 Date Time Temp Pulse Resp B/P Pulse Ox O2 Delivery O2 Flow Rate FiO2 11/19/16 10:57 36.6 75 20 151/90 92 Room Air 11/19/16 08:00 Room Air 11/19/16 07:23 36.5 80 20 161/93 96 Room Air 11/19/16 04:00 Room Air 11/19/16 03:19 36.8 92 18 137/78 96 Room Air 11/19/16 00:01 Room Air 11/18/16 23:45 36.9 76 18 117/73 97 Room Air 11/18/16 20:04 Room Air 11/18/16 19:03 37.1 94 17 146/77 96 Room Air 11/18/16 16:00 Room Air 11/18/16 15:39 36.8 84 18 132/63 95 11/18/16 12:00 Room Air 11/18/16 11:41 36.7 69 18 138/69 95 Laboratory Results 24 Hours: Test 11/19/16 05:55 Hematocrit 26.9 % Hemoglobin 9.0 g/dL Assessment & Plan Assessment: SEPTIC ARTHRITIS LEFT TOTAL KNEE ARTHROPLASTY -POD #5 s/p I&D, removal total knee implant, placement of antibiotic spacer and prevena wound vac -ID Consult, currently on Daptomycin. -blood cultures positive for MRSA ; Knee cx's positive or MRSA, latest blood cultures from 11/16/16 ngtd -Dr Botello consulted. - Will have wound care change Prevena today. UTI -urine culture with Citrobacter ATRIAL FIBRILLATION DM2 -glycemic pharmacy consulted ACUTE BLOOD LOSS ANEMIA -transfused 4 units PRBC's during this admission - Hgb 9.0 today -S/P IVC filter Inhouse Planning Pain Management: Ultram, Morphine, Oxy IR DVT Prophylaxis: TEDs, SCDs, ASA, other (IVC Filter) Discharge Planning Discharge Planning: uncertain
--- NOTE | 2016-11-19 12:53 | Pharmacy Progress Note ---
Glycemic Control: Progress Nt Date of Service Nov 19, 2016. Scope Glycemic Pharmacist consulted by Dr Betancourt on 11/13 for glycemic control and to write orders per [facility] inpatient glycemic control protocol. Objective Accuchecks BSG (last 24hrs): Test 11/18/16 16:20 11/18/16 20:02 11/19/16 01:51 11/19/16 05:55 Bedside Glucose 136 mg/dl (70-90) 183 mg/dl (70-90) 95 mg/dl (70-90) Random Glucose 110 mg/dl (70-99) Test 11/19/16 06:34 11/19/16 11:13 Bedside Glucose 116 mg/dl (70-90) 153 mg/dl (70-90) Laboratory Data (last 24hrs) Test 11/19/16 05:55 Anion Gap 7.0 mmol/L BUN/Creatinine Ratio 17.6 Blood Urea Nitrogen 7 mg/dl Creatinine 0.37 mg/dl Potassium Level 3.3 mmol/L Sodium Level 136 mmol/L White Blood Count 12.97 K/uL Recent Pertinent Medications Outpatient Anti-diabetic Regimen: * Glipizide ER 10mg qAM, Novolog QID per SS, Lantus 18 units BID * A1c = 7.7 % 10/20/16 The patient is currently receiving: * Basal insulin: Lantus per "sliding scale" - rec'd 10 units yesterday and 5 units this AM * Correctional Insulin: Novolog Correction per scale ACHS + 02 Goal Range: Low 140 mg/dL - High 180 mg/dL Correction Factor: 30 mg/dL/unit * Prandial insulin: 1 unit per 15 gm CHO consumed Risk Factors for Insulin Resistance: * Infection: Infected total knee replacement * Recent Surgery: L TKR 10/22/16; OR 11/14 for ABX spacer * Diet: type 2 diabetes Assessment & Plan ASSESSMENT: 11/16/16 * Pt is a 66 yo female readmitted s/p L TKR on 10/22/16. Due to infection, patient taken to OR 11/14/16. * 11/14: All AM insulins held. Pt initiated on dextrose containing fluids. Pt hypotensive, started on pressors and sent to ICU. -MD started insulin drip that night for BSGs >350 mg/dL and dextrose containing fluids discontinued * 4/8: BSGs stabilized and patient looking much better, advanced to clears--> Transition back to basal/bolus * Patient received a total of 23 units (+ drip overlap) in the last 24 hours * Fasting BSG 61 mg/dL- D25 pushed per protocol * Patient asymptomatic- breakfast tray consumed without coverage due to ongoing emergencies in ICU * Lunch BSG 69 mg/dL- nurse called pharmacy, patient ate full tray plus juice and recheck was only 85 mg/dL * My plan today will be to hold all basal insulin until BSG >140 mg/dL and remove carb coverage due to sustained hypoglycemia 11/17/16 * Ms. Johnson received 0 units of insulin yesterday with all BSGs remaining below 90, even with dextrose IVFs running * Unsure of reason for continued "low" BSGs w/o need for insulin * Plan will be to continue with insulin orders and resume basal and/or carb ratio once BSGs become more elevated 11/18/16 * BSGs have finally started to increase off dextrose IVFs - up to 236 at lunchtime today * Of note, RN reported to me later that pt takes 2-3 hrs to eat meals so this may have been a post-prandial BSG; regardless, BSGs are increasing enough to warrant resumption of insulin * Due to the recent history of lows, will be conservative with insulin resumption (~25% of outpatient Lantus dose) and a fairly loose CR * Will continue overnight accuchecks but only a single check 11/19/16 * Ms. Laras BSGs responded nicely to the resumption of basal and prandial insulin yesterday * Her fasting BSG was less than 140 this AM so she received 1/2 of her Lantus dose but that seems acceptable * Will plan to continue with the same conservative regimen - no new stressors have been added PLAN FOR INPATIENT GLYCEMIC CONTROL: * Continue Lantus daily as per "sliding scale" * 5 units for BSG 140 or less * 10 units for BSG above 140 * Continue Novolog ACHS - remove overnight accucheck * Goal 140-180 mg/dL * CF 30 mg/dL/unit * CR 1 unit per 15 gm CHO consumed * Please note that the plan above was derived based on current level of insulin resistance and hospital stress. These recommendations are appropriate for inpatient admission only. Plan of care upon discharge will need to be reassessed to avoid potential outpatient hypo/hyperglycemia. Thank you.
[2016-11-19] MEDS: DAPTOmycin IV 600 MG in SODIUM CHLORIDE 0.9% 50ML 50 ML IV SCH (14:08)
--- NOTE | 2016-11-19 15:02 | Progress Note ---
Subjective Date of Service: Nov 19, 2016. Subjective remains afebrile, on dapto, toelrating well. 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 Blood cultures + mrsa also, repeat cultures 11/16 negative to date x 2. wbc improving. aztreonam stopped. no overnight events. Objective Vital Signs Date Time Temp Pulse Resp B/P Pulse Ox O2 Delivery O2 Flow Rate FiO2 11/19/16 12:00 Room Air 11/19/16 10:57 36.6 75 20 151/90 92 Room Air 11/19/16 08:00 Room Air 11/19/16 07:23 36.5 80 20 161/93 96 Room Air 11/19/16 04:00 Room Air 11/19/16 03:19 36.8 92 18 137/78 96 Room Air 11/19/16 00:01 Room Air 11/18/16 23:45 36.9 76 18 117/73 97 Room Air 11/18/16 20:04 Room Air 11/18/16 19:03 37.1 94 17 146/77 96 Room Air 11/18/16 16:00 Room Air 11/18/16 15:39 36.8 84 18 132/63 95 Laboratory Results Item Value Date Time Blood Culture - Preliminary Resulted 11/16/16 1006 Blood NO GROWTH TO DATE. Blood Culture - Preliminary Resulted 11/16/16 0840 Blood NO GROWTH TO DATE. Blood Culture - Final Complete 11/14/16 1327 Blood Staphylococcus Aureus Gram Stain - Final Complete 11/13/16 0000 Joint Fluid/Space (Synovial) Knee Left Last 24 Hours Test 11/18/16 16:20 11/18/16 20:02 11/19/16 01:51 11/19/16 05:55 Bedside Glucose 136 mg/dl 183 mg/dl 95 mg/dl White Blood Count 12.97 K/uL Red Blood Count 3.12 M/uL Hemoglobin 9.0 g/dL Hematocrit 26.9 % Mean Corpuscular Volume 86.2 fL Mean Corpuscular Hemoglobin 28.8 pg Mean Corpuscular Hemoglobin Concent 33.5 g/dl RDW Standard Deviation 48.7 fL RDW Coefficient of Variation 15.6 % Platelet Count 512 K/uL Mean Platelet Volume 8.7 fL Sodium Level 136 mmol/L Potassium Level 3.3 mmol/L Chloride Level 100 mmol/L Carbon Dioxide Level 29 mmol/L Anion Gap 7.0 mmol/L Blood Urea Nitrogen 7 mg/dl Creatinine 0.37 mg/dl Est Creatinine Clear Calc Drug Dose 168.1 ml/min Estimated GFR () 128.2 Estimated GFR (Non- 110.6 BUN/Creatinine Ratio 17.6 Random Glucose 110 mg/dl Calcium Level 7.0 mg/dl Magnesium Level 1.4 mg/dl Test 11/19/16 06:34 11/19/16 11:13 Bedside Glucose 116 mg/dl 153 mg/dl Assessment and Plan (1) Infection of total left knee replacement Assessment & Plan: continue with dapto, follow repeat cultures, negative to date. suggest echo r/o veg. will need long course of IV abx, stop aztreonam. would also suggest ultrasound upper ext to r/o clot at picc site, however, repeat cultures negative to date. will need min 6 weeks. will need outpt ID followup as well. (2) Leukocytosis
--- NOTE | 2016-11-19 16:50 | Progress Note ---
Subjective Date of Service: Nov 19, 2016. Subjective Pt evaluation today including: conversation w/ patient, physical exam, lab review, review of studies, review of inpatient medication list Saw/examined the patient in room 235 She's doing okay, appetite is still not back No fevers/chills LLE pain Review of Systems Constitutional: + problem reported (lack of appetite), + weakness, No chills, No fever Respiratory: No shortness of breath Cardiac: No chest pain Abdomen: No diarrhea, No nausea, No pain, No vomiting Musculoskeletal: + joint pain (LLE) Medications Current Inpatient Medications Medications (Trade) Dose Ordered Sig/Denisse Route Start Time Stop Time Status Last Admin Dose Admin Pantoprazole Sodium (Protonix Tab) 40 mg QAM PO 11/14/16 09:00 12/14/16 08:59 11/19/16 08:17 40 MG Acetaminophen (Tylenol Tab) 650 mg Q4H PRN PO 11/13/16 13:00 12/13/16 12:59 11/13/16 23:43 650 MG Docusate Sodium (coLACE CAP) 100 mg BID PO 11/13/16 21:00 12/13/16 20:59 11/19/16 08:16 100 MG Folic Acid (Folvite Tab) 1 mg DAILY PO 11/14/16 09:00 12/14/16 08:59 11/19/16 08:17 1 MG Tramadol HCl (Ultram Tab) 50 mg Q4H PRN PO 11/13/16 13:00 12/13/16 12:59 11/19/16 13:16 50 MG Morphine Sulfate (MoRPHine SULFATE INJ) 2 mg Q4H PRN IV 11/13/16 13:30 11/27/16 13:29 11/15/16 10:37 2 MG Morphine Sulfate (MoRPHine SULFATE INJ) 4 mg Q4H PRN IV 11/13/16 13:30 11/27/16 13:29 11/17/16 03:16 4 MG Morphine Sulfate 6 mg 6 mg Q4H PRN IV 11/13/16 13:30 11/27/16 13:29 Daptomycin/Sodium Chloride (Cubicin IV/Nss 50ml) 62 ml @ 120 mls/hr Q24H IV 11/13/16 14:00 12/25/16 13:59 11/19/16 14:08 120 MLS/HR Glucose (Glucose 40% Gel) 15-30 GRAMS 15 GRAMS... UD PRN PO 11/13/16 14:30 12/13/16 14:29 Glucose (Glucose Chew Tab) 4-8 Tablets 4 Tabl... UD PRN PO 11/13/16 14:30 12/13/16 14:29 Dextrose (Dextrose 50% 50ML Syringe) 25-50ML OF 50% DW IV FOR... UD PRN IV 11/13/16 14:30 12/13/16 14:29 11/16/16 16:36 50 ML Glucagon (Glucagon Inj) 1 mg UD PRN SQ 11/13/16 14:30 12/13/16 14:29 Oxycodone HCl (Roxicodone Immediate Rel Tab) 1 TABLET FOR PAIN RATING... Q4H PRN PO 11/14/16 11:45 11/28/16 11:44 11/19/16 05:15 10 MG Magnesium Hydroxide (Milk Of Magnesia Susp) 30 ml Q6H PRN PO 11/14/16 11:45 12/14/16 11:44 Bisacodyl (Dulcolax Supp) 10 mg DAILY PRN UT 11/14/16 11:45 12/14/16 11:44 Senna (Senokot Tab) 17.2 mg HS PO 11/14/16 21:00 12/14/16 20:59 11/18/16 19:42 17.2 MG Diphenhydramine HCl (Benadryl Inj) 25 mg Q8H PRN IV 11/14/16 11:45 12/14/16 11:44 Al Hydrox/Mg Hydrox/Simethicone (Maalox Max Susp) 15 ml Q4H PRN PO 11/14/16 11:45 12/14/16 11:44 Multivitamins (Multivitamin Tab) 1 tab QAM PO 11/15/16 09:00 12/15/16 08:59 11/19/16 08:17 1 TAB Ondansetron HCl (Zofran Inj) 4 mg Q6H PRN IV 11/14/16 11:45 12/14/16 11:44 11/19/16 05:31 4 MG Ferrous Gluconate (Ferrous Gluconate Tab) 324 mg TIDM PO 11/14/16 12:30 5/7/17 12:29 11/19/16 12:35 324 MG Aspirin (Ecotrin Tab) 81 mg BID PO 11/14/16 21:00 12/14/16 20:59 11/19/16 08:16 81 MG Miscellaneous Information (Consult Glycemic Management Pharmacy) 1 ea UD PRN N/A 11/14/16 21:30 12/14/16 21:29 Heparin Sodium (Porcine) (Heparin 10 Unit/ ml 5 ml Flush) 5 ml PRN PRN FLUSH 11/15/16 01:30 12/15/16 01:29 Insulin Aspart (novoLOG ASPART) SLIDING SCALE ACHS SC 11/15/16 16:00 12/15/16 15:59 11/18/16 20:45 1 UNITS Metoprolol Tartrate (Lopressor Tab) 25 mg BID PO 11/15/16 21:00 12/15/16 20:59 11/19/16 08:17 25 MG Miconazole Nitrate (Desenex Powder) 1 appln BID PRN EXT 11/16/16 17:00 12/16/16 16:59 11/19/16 05:39 1 APPLN Insulin Glargine (Lantus Solostar Pen) see protocol text QAM SC 11/18/16 12:00 12/18/16 11:59 11/19/16 08:19 5 UNIT Objective Vital Signs Date Time Temp Pulse Resp B/P Pulse Ox O2 Delivery O2 Flow Rate FiO2 11/19/16 16:34 Room Air 11/19/16 12:00 Room Air 11/19/16 10:57 36.6 75 20 151/90 92 Room Air 11/19/16 08:00 Room Air 11/19/16 07:23 36.5 80 20 161/93 96 Room Air 11/19/16 04:00 Room Air 11/19/16 03:19 36.8 92 18 137/78 96 Room Air 11/19/16 00:01 Room Air 11/18/16 23:45 36.9 76 18 117/73 97 Room Air 11/18/16 20:04 Room Air 11/18/16 19:03 37.1 94 17 146/77 96 Room Air Physical Exam General Appearance: no apparent distress Respiratory/Chest: lungs clear, normal breath sounds, no respiratory distress, no accessory muscle use Cardiovascular: regular rate, rhythm, no edema, no murmur Abdomen: normal bowel sounds, non tender, soft Extremities: + pertinent finding (left LE; bandage on knee, no swelling) Neurologic/Psychiatric: no motor/sensory deficits, alert, normal mood/affect Laboratory Results Last 24 Hours Test 11/18/16 20:02 11/19/16 01:51 11/19/16 05:55 11/19/16 06:34 Bedside Glucose 183 mg/dl 95 mg/dl 116 mg/dl White Blood Count 12.97 K/uL Red Blood Count 3.12 M/uL Hemoglobin 9.0 g/dL Hematocrit 26.9 % Mean Corpuscular Volume 86.2 fL Mean Corpuscular Hemoglobin 28.8 pg Mean Corpuscular Hemoglobin Concent 33.5 g/dl RDW Standard Deviation 48.7 fL RDW Coefficient of Variation 15.6 % Platelet Count 512 K/uL Mean Platelet Volume 8.7 fL Sodium Level 136 mmol/L Potassium Level 3.3 mmol/L Chloride Level 100 mmol/L Carbon Dioxide Level 29 mmol/L Anion Gap 7.0 mmol/L Blood Urea Nitrogen 7 mg/dl Creatinine 0.37 mg/dl Est Creatinine Clear Calc Drug Dose 168.1 ml/min Estimated GFR () 128.2 Estimated GFR (Non- 110.6 BUN/Creatinine Ratio 17.6 Random Glucose 110 mg/dl Calcium Level 7.0 mg/dl Magnesium Level 1.4 mg/dl Test 11/19/16 11:13 11/19/16 16:24 Bedside Glucose 153 mg/dl 182 mg/dl Assessment and Plan SEPSIS with SEPTIC ARTHRITIS LEFT KNEE MRSA BACTEREMIA 11/19 will need 6 weeks of daptomycin blood cultures from 11/16, no growth to date replaced Mg and K d/c as per ortho 11/18 appreciate ID input appreciate orthopedic input s/p I&D on 11/14 continue Daptomycin post-operatively, patient required vasopressor support 11/17 -taken to OR 11/14 for removal of implants with insertion of antibiotic spacer -ID consulted -patient on daptomycin -synovial cultures with MRSA -weaned off pressor support UTI d/c Azactam ATRIAL FIBRILLATION required amiodarone drip due to hypotension now b-jodie restarted OLIGURIC ANNETTE -resolved with IVF's DM2 -hold glipizide -insulin coverage -glycemic pharmacy consulted ACUTE BLOOD LOSS ANEMIA - s/p 4 units PRBCs -transfused 4units PRBC's -Hgb stable HTN cont. b-jodie Pressure ulcer of right medial buttock, stage 2, POA and Pressure ulcer of medial sacrum, stage 2, not POA -- Wound care consulted H/O DVT -S/P IVC filter DVT PROPHYLAXIS: aspirin BID
[2016-11-19] MEDS: SENNA 8.6 MG TAB PO SCH (20:06)
[2016-11-20] VITALS (11 sets, daily range): BP systolic 134–160; BP diastolic 74–89; PULSE 72–99; TEMP 36.6–36.9; O2SAT 94–97
[2016-11-20 06:44] LABS: HEMATOCRIT 27.8 % (37-47); MEAN CELL VOLUME 87.1 fL (80-100); MEAN CORPUSCULAR HEMOGLOBIN 28.5 pg (25-34); MEAN CORPUSCULAR HGB CONC 32.7 g/dl (32-36); MEAN PLATELET VOLUME 8.7 fL (7.4-10.4); PLATELET COUNT 701 K/uL (130-400); RED BLOOD COUNT 3.19 M/uL (4.2-5.4); WHITE BLOOD COUNT 12.63 K/uL (4.8-10.8)
[2016-11-20] MEDS: INSULIN ASPART 100 UNITS/ML 3 ML PEN SC SCH ×4 (07:00→20:41)
[2016-11-20] MEDS: DOCUSATE SODIUM 100 MG CAP PO SCH ×2 (07:25→20:51)
[2016-11-20] MEDS: FERROUS GLUCONATE 324 MG TAB PO SCH ×3 (07:25→17:02)
[2016-11-20] MEDS: PANTOprazole SOD 40 MG TAB PO SCH (07:26)
[2016-11-20] MEDS: MULTIVITAMIN TAB PO SCH (07:26)
[2016-11-20] MEDS: METOPROLOL TARTRATE 25 MG TAB PO SCH ×2 (07:26→20:52)
[2016-11-20] MEDS: INSULIN GLARGINE SOLOSTAR 100 UNITS/ML 3 ML PEN SC SCH (07:29)
[2016-11-20] MEDS: ASPIRIN 81 MG ECTAB PO SCH ×2 (08:00→20:51)
--- NOTE | 2016-11-20 08:01 | Orthopedic Progress Note ---
Orthopedic Progress Note Date of Service Nov 20, 2016. Subjective Post OP Day: 6 Reports: feeling well, Denies: SOB, calf pain, chest pain, complaints, light headedness, nausea / vomiting, pain controlled w PO medications, using [employer] Objective A&O x3, toes mobile calf soft nontender left lower extremity, denies pain posterior right thigh, dressing C/D/I (Prevena dressing with mild drainage on sponge portion that is seeping under the tegaderm portion.), left knee incision sutures intact, area of eschar present mid incision as well as distal incision. reddish drainage noted onto aquacel left knee from distal aspect Date Time Temp Pulse Resp B/P Pulse Ox O2 Delivery O2 Flow Rate FiO2 11/20/16 04:00 96 Room Air 11/20/16 03:16 36.9 82 17 145/80 94 Room Air 11/19/16 23:59 96 Room Air 11/19/16 23:33 36.7 81 17 157/78 96 Room Air 11/19/16 20:16 Room Air 11/19/16 19:34 36.9 68 16 128/76 96 11/19/16 16:34 Room Air 11/19/16 15:00 36.7 76 18 139/63 95 11/19/16 12:00 Room Air 11/19/16 10:57 36.6 75 20 151/90 92 Room Air 11/19/16 08:00 Room Air Laboratory Results 24 Hours: Test 11/20/16 05:53 Hematocrit 27.8 % Hemoglobin 9.1 g/dL Assessment & Plan Assessment: SEPTIC ARTHRITIS LEFT TOTAL KNEE ARTHROPLASTY -POD #6 s/p I&D, removal total knee implant, placement of antibiotic spacer and prevena wound vac -ID Consult, currently on Daptomycin. -blood cultures positive for MRSA ; Knee cx's positive or MRSA, latest blood cultures from 11/16/16 ngtd -Dr Botello consulted. - wound care consulted, aquacel dressing placed, will cont with daily dressing changes, will consult dr chang UTI -urine culture with Citrobacter ATRIAL FIBRILLATION DM2 -glycemic pharmacy consulted ACUTE BLOOD LOSS ANEMIA -transfused 4 units PRBC's during this admission - Hgb 9.0 today -S/P IVC filter (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
[2016-11-20] MEDS: OXYCODONE HCL IR 5 MG TAB (IMMEDIATE RELEASE) PO PRN ×3 (08:20→19:43)
[2016-11-20 08:35] LABS: BUN/CREATININE RATIO 16.4 (10-20); CREATININE 0.39 mg/dl (0.60-1.20); MAGNESIUM 1.5 mg/dl (1.8-2.4); POTASSIUM 3.9 mmol/L (3.5-5.1)
[2016-11-20 09:19] LABS: CALCIUM 7.7 mg/dl (8.5-10.1)
--- NOTE | 2016-11-20 09:35 | Pharmacy Progress Note ---
Glycemic Control: Progress Nt Date of Service Nov 20, 2016. Scope Glycemic Pharmacist consulted by Dr Betancourt on 11/13 for glycemic control and to write orders per [facility] inpatient glycemic control protocol. Objective Accuchecks BSG (last 24hrs): Test 11/19/16 11:13 11/19/16 16:24 11/19/16 20:11 11/20/16 05:36 Bedside Glucose 153 mg/dl (70-90) 182 mg/dl (70-90) 125 mg/dl (70-90) Random Glucose 135 mg/dl (70-99) Test 11/20/16 06:44 Bedside Glucose 147 mg/dl (70-90) Laboratory Data (last 24hrs) Test 11/20/16 05:36 11/20/16 05:53 Anion Gap 6.0 mmol/L BUN/Creatinine Ratio 16.4 Blood Urea Nitrogen 6 mg/dl Creatinine 0.39 mg/dl Potassium Level 3.9 mmol/L Sodium Level 133 mmol/L White Blood Count 12.63 K/uL Recent Pertinent Medications Outpatient Anti-diabetic Regimen: * Glipizide ER 10mg qAM, Novolog QID per SS, Lantus 18 units BID * A1c = 7.7 % 10/20/16 The patient is currently receiving: * Basal insulin: Lantus per "sliding scale" 11/18 - 10 units 11/19 - 5 units 11/20 - 10 units * Correctional Insulin: Novolog Correction per scale ACHS Goal Range: Low 140 mg/dL - High 180 mg/dL Correction Factor: 30 mg/dL/unit * Prandial insulin: 1 unit per 15 gm CHO consumed Risk Factors for Insulin Resistance: * Infection: Infected total knee replacement * Recent Surgery: L TKR 10/22/16; OR 11/14 for ABX spacer * Diet: type 2 diabetes - fairly low po intake Assessment & Plan ASSESSMENT: 11/16/16 * Pt is a 66 yo female readmitted s/p L TKR on 10/22/16. Due to infection, patient taken to OR 11/14/16. * 11/14: All AM insulins held. Pt initiated on dextrose containing fluids. Pt hypotensive, started on pressors and sent to ICU. -MD started insulin drip that night for BSGs >350 mg/dL and dextrose containing fluids discontinued * 11/15: BSGs stabilized and patient looking much better, advanced to clears--> Transition back to basal/bolus * Patient received a total of 23 units (+ drip overlap) in the last 24 hours * Fasting BSG 61 mg/dL- D25 pushed per protocol * Patient asymptomatic- breakfast tray consumed without coverage due to ongoing emergencies in ICU * Lunch BSG 69 mg/dL- nurse called pharmacy, patient ate full tray plus juice and recheck was only 85 mg/dL * My plan today will be to hold all basal insulin until BSG >140 mg/dL and remove carb coverage due to sustained hypoglycemia 11/17/16 * Ms. Johnson received 0 units of insulin yesterday with all BSGs remaining below 90, even with dextrose IVFs running * Unsure of reason for continued "low" BSGs w/o need for insulin * Plan will be to continue with insulin orders and resume basal and/or carb ratio once BSGs become more elevated 11/18/16 * BSGs have finally started to increase off dextrose IVFs - up to 236 at lunchtime today * Of note, RN reported to me later that pt takes 2-3 hrs to eat meals so this may have been a post-prandial BSG; regardless, BSGs are increasing enough to warrant resumption of insulin * Due to the recent history of lows, will be conservative with insulin resumption (~25% of outpatient Lantus dose) and a fairly loose CR * Will continue overnight accuchecks but only a single check 11/19/16 * Ms. Laras BSGs responded nicely to the resumption of basal and prandial insulin yesterday * Her fasting BSG was less than 140 this AM so she received 1/2 of her Lantus dose but that seems acceptable * Will plan to continue with the same conservative regimen - no new stressors have been added 11/20/16 * BSGs have ranged from 125-182 with 9 units of insulin given yesterday * I would like to transition to a set dose of Lantus now that we've seen a few days of "sliding scale" doses * 10 units appears to be a little too much and 5 units is maybe not enough * Will split the difference and start 7 units daily - unfortunately, the dose was given fairly early this AM so the set dose will start tomorrow PLAN FOR INPATIENT GLYCEMIC CONTROL: * Change Lantus to set dose of 7 units daily * Continue Novolog ACHS * Goal 140-180 mg/dL * CF 30 mg/dL/unit * CR 1 unit per 15 gm CHO consumed * Please note that the plan above was derived based on current level of insulin resistance and hospital stress. These recommendations are appropriate for inpatient admission only. Plan of care upon discharge will need to be reassessed to avoid potential outpatient hypo/hyperglycemia. Thank you.
[2016-11-20] MEDS: MoRPHine SULFATE 4 MG/ML 1 ML CARP\\VIAL IV PRN (11:13)
--- NOTE | 2016-11-20 12:50 | Progress Note ---
Subjective Date of Service: Nov 20, 2016. Subjective Pt evaluation today including: conversation w/ patient, conversation w/ family , physical exam, chart review, lab review pt seen in follow up, family at bedside, pt eating lunch. feeling much better. pain less. no fevers, remains on dapto, tolerating well. Repeat blood cultures from 11/16 ngtd. wound care to eval for wound, dressing in place over knee, does admit to some weeping but denies purulent drainage or bleeding. No f/c. All remaining ros reviewed and are negative. Objective Vital Signs Date Time Temp Pulse Resp B/P Pulse Ox O2 Delivery O2 Flow Rate FiO2 11/20/16 12:00 96 Room Air 11/20/16 11:11 36.7 91 20 160/89 97 Room Air 11/20/16 08:18 36.6 72 20 151/83 96 Room Air 11/20/16 08:08 96 Room Air 11/20/16 04:00 96 Room Air 11/20/16 03:16 36.9 82 17 145/80 94 Room Air 11/19/16 23:59 96 Room Air 11/19/16 23:33 36.7 81 17 157/78 96 Room Air 11/19/16 20:16 Room Air 11/19/16 19:34 36.9 68 16 128/76 96 11/19/16 16:34 Room Air 11/19/16 15:00 36.7 76 18 139/63 95 Physical Exam General Appearance: WD/WN, no apparent distress Eyes: normal inspection ENT: normal ENT inspection Respiratory/Chest: lungs clear, normal breath sounds, no respiratory distress Cardiovascular: regular rate, rhythm, no edema Abdomen: soft Extremities: non-tender, no pedal edema Neurologic/Psychiatric: alert, oriented x 3 Skin: normal color Comments: left knee dressing c/d/i, sutures in place, no surrounding erythema, edema, tenderness,warmth rij c/d/i Laboratory Results Item Value Date Time Blood Culture - Preliminary Resulted 11/16/16 1006 Blood NO GROWTH TO DATE. Blood Culture - Preliminary Resulted 11/16/16 0840 Blood NO GROWTH TO DATE. Blood Culture - Final Complete 11/14/16 1540 Blood Staphylococcus Aureus Gram Stain - Final Complete 11/13/16 0000 Joint Fluid/Space (Synovial) Knee Left Last 24 Hours Test 11/19/16 16:24 11/19/16 20:11 11/20/16 05:36 11/20/16 05:53 Bedside Glucose 182 mg/dl 125 mg/dl Sodium Level 133 mmol/L Potassium Level 3.9 mmol/L Chloride Level 97 mmol/L Carbon Dioxide Level 30 mmol/L Anion Gap 6.0 mmol/L Blood Urea Nitrogen 6 mg/dl Creatinine 0.39 mg/dl Est Creatinine Clear Calc Drug Dose 156.7 ml/min Estimated GFR () 126.0 Estimated GFR (Non- 108.7 BUN/Creatinine Ratio 16.4 Random Glucose 135 mg/dl Calcium Level 7.7 mg/dl Magnesium Level 1.5 mg/dl White Blood Count 12.63 K/uL Red Blood Count 3.19 M/uL Hemoglobin 9.1 g/dL Hematocrit 27.8 % Mean Corpuscular Volume 87.1 fL Mean Corpuscular Hemoglobin 28.5 pg Mean Corpuscular Hemoglobin Concent 32.7 g/dl RDW Standard Deviation 49.4 fL RDW Coefficient of Variation 15.4 % Platelet Count 701 K/uL Mean Platelet Volume 8.7 fL Test 11/20/16 06:44 11/20/16 11:14 Bedside Glucose 147 mg/dl 147 mg/dl Assessment and Plan (1) Infection of total left knee replacement Assessment & Plan: continue dapto, will need several weeks. pt states she will not have repeat surgery for 12 weeks, will need long course of abx. will need weekly cbc,cmp, esr, cpk while on dapto. repeat cultures negative to date. will need ID follow up as well as ortho follow up post d/c (2) MRSA (methicillin resistant Staphylococcus aureus) septicemia Assessment & Plan: repeat blood cultures negative, suggest echo r/o IE (3) Leukocytosis
[2016-11-20] MEDS: DAPTOmycin IV 600 MG in SODIUM CHLORIDE 0.9% 50ML 50 ML IV SCH (13:11)
--- NOTE | 2016-11-20 14:06 | CONSULTATION REPORT ---
DATE OF CONSULTATION: 11/20/2016 DATE OF CONSULTATION: 11/20/2016. CHIEF COMPLAINT: Postoperative wound infection, left knee. HISTORY OF PRESENT ILLNESS: This patient was admitted to [facility] 1 week ago for further evaluation and treatment of a septic left knee. 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 The patient also underwent a recent incision and drainage of poly exchange in the left knee approximately 4 weeks prior. The patient just recently underwent an incision and drainage of abscess formation to this left knee followed by a complete removal of a total knee implant and placement of antibiotic spacer per Dr. Ibarra 6 days ago. The patient states that she is having pain in the knee area but not increased. The patient has noticed drainage from this site. The patient currently denies any fever, chills or night sweats. The patient denies any chest pain, shortness of breath, abdominal discomfort, nausea or vomiting. The patient denies any other systemic complaints. PAST MEDICAL HISTORY: Positive for peripheral artery disease, DVT, sepsis, atrial fibrillation, type 2 diabetes, and hypertension. PAST SURGICAL HISTORY: As noted above. CURRENT MEDICATIONS: Were reviewed in the nurse's notes. REVIEW OF SYSTEMS: Ten systems were reviewed in their entirety and positive findings were noted in the chief complaint and history of present illness. PHYSICAL EXAMINATION: GENERAL: The patient is currently lying in hospital bed in no acute distress. The patient is alert, cooperative, follows all commands without difficulty. Vital signs were also reviewed and found to be unremarkable. The patient is afebrile. HEAD, EYES, EARS, NOSE, AND THROAT: Pupils equal and reactive to light. Sclerae clear. NECK: Supple. CHEST: Heart and lungs clear to auscultation. EXTREMITIES: Reveals the presence of an incision into the left knee which currently is showing some bloody purulent drainage with palpation. There is some eschar formation present in the proximal portion of the incision site. There is no periwound erythema prominent edema or fluctuance noted. NEUROLOGIC EXAMINATION: The patient is alert and oriented. No ____ deficits noted. IMPRESSION: Postoperative wound to the left knee with a probable persistent infection. PLAN: After discussion with Dr. Ibarra it was agreed that the inferior portion of the incision site will have the sutures removed and an irrigating VAC will be applied using black foam at 125 mm of negative pressure. Wound VAC irrigation 10 minutes with normal saline followed by 2 hours of VAC therapy intermittently and continuous. The patient will continue to be monitored and reassess during her hospitalization. Final measurements following suture removal was 7.5 x 1.3 x 0.5 cm with undermining at 9 o'clock of 3.5 cm and at 3 o'clock of 1.1 cm. There was some minimal drainage present following removal of sutures. No significant odor noted.
[2016-11-20] MEDS: MAGNESIUM SULFATE 1GM / D5W 1 GM in PREMIXED IN D5W 100 ML IV SCH ×2 (16:09→17:30)
--- NOTE | 2016-11-20 17:36 | Progress Note ---
Subjective Date of Service: Nov 20, 2016. Subjective Pt evaluation today including: conversation w/ patient, physical exam, lab review, review of studies, review of inpatient medication list Saw/examined the patient in room 235 She's doing okay; in good spirits 4-5/10 pain at the LLE better appetite today Review of Systems Constitutional: + problem reported (better appetite), + weakness, No chills, No fever Respiratory: No shortness of breath Cardiac: No chest pain Abdomen: No diarrhea, No nausea, No pain, No vomiting Musculoskeletal: + joint pain Medications Current Inpatient Medications Medications (Trade) Dose Ordered Sig/Denisse Route Start Time Stop Time Status Last Admin Dose Admin Pantoprazole Sodium (Protonix Tab) 40 mg QAM PO 11/14/16 09:00 12/14/16 08:59 11/20/16 07:26 40 MG Acetaminophen (Tylenol Tab) 650 mg Q4H PRN PO 11/13/16 13:00 12/13/16 12:59 11/13/16 23:43 650 MG Docusate Sodium (coLACE CAP) 100 mg BID PO 11/13/16 21:00 12/13/16 20:59 11/20/16 07:25 100 MG Folic Acid (Folvite Tab) 1 mg DAILY PO 11/14/16 09:00 12/14/16 08:59 11/20/16 07:27 1 MG Tramadol HCl (Ultram Tab) 50 mg Q4H PRN PO 11/13/16 13:00 12/13/16 12:59 11/19/16 23:47 50 MG Morphine Sulfate (MoRPHine SULFATE INJ) 2 mg Q4H PRN IV 11/13/16 13:30 11/27/16 13:29 11/15/16 10:37 2 MG Morphine Sulfate (MoRPHine SULFATE INJ) 4 mg Q4H PRN IV 11/13/16 13:30 11/27/16 13:29 11/20/16 11:13 4 MG Morphine Sulfate 6 mg 6 mg Q4H PRN IV 11/13/16 13:30 11/27/16 13:29 Daptomycin/Sodium Chloride (Cubicin IV/Nss 50ml) 62 ml @ 120 mls/hr Q24H IV 11/13/16 14:00 12/25/16 13:59 11/20/16 13:11 120 MLS/HR Glucose (Glucose 40% Gel) 15-30 GRAMS 15 GRAMS... UD PRN PO 11/13/16 14:30 12/13/16 14:29 Glucose (Glucose Chew Tab) 4-8 Tablets 4 Tabl... UD PRN PO 11/13/16 14:30 12/13/16 14:29 Dextrose (Dextrose 50% 50ML Syringe) 25-50ML OF 50% DW IV FOR... UD PRN IV 11/13/16 14:30 12/13/16 14:29 11/16/16 16:36 50 ML Glucagon (Glucagon Inj) 1 mg UD PRN SQ 11/13/16 14:30 12/13/16 14:29 Oxycodone HCl (Roxicodone Immediate Rel Tab) 1 TABLET FOR PAIN RATING... Q4H PRN PO 11/14/16 11:45 11/28/16 11:44 11/20/16 15:45 5 MG Magnesium Hydroxide (Milk Of Magnesia Susp) 30 ml Q6H PRN PO 11/14/16 11:45 12/14/16 11:44 Bisacodyl (Dulcolax Supp) 10 mg DAILY PRN MD 11/14/16 11:45 12/14/16 11:44 Senna (Senokot Tab) 17.2 mg HS PO 11/14/16 21:00 12/14/16 20:59 11/19/16 20:06 17.2 MG Diphenhydramine HCl (Benadryl Inj) 25 mg Q8H PRN IV 11/14/16 11:45 12/14/16 11:44 Al Hydrox/Mg Hydrox/Simethicone (Maalox Max Susp) 15 ml Q4H PRN PO 11/14/16 11:45 12/14/16 11:44 Multivitamins (Multivitamin Tab) 1 tab QAM PO 11/15/16 09:00 12/15/16 08:59 11/20/16 07:26 1 TAB Ondansetron HCl (Zofran Inj) 4 mg Q6H PRN IV 11/14/16 11:45 12/14/16 11:44 11/19/16 23:46 4 MG Ferrous Gluconate (Ferrous Gluconate Tab) 324 mg TIDM PO 11/14/16 12:30 12/14/16 12:29 11/20/16 17:02 324 MG Aspirin (Ecotrin Tab) 81 mg BID PO 11/14/16 21:00 12/14/16 20:59 11/20/16 08:00 81 MG Miscellaneous Information (Consult Glycemic Management Pharmacy) 1 ea UD PRN N/A 11/14/16 21:30 12/14/16 21:29 Heparin Sodium (Porcine) (Heparin 10 Unit/ ml 5 ml Flush) 5 ml PRN PRN FLUSH 11/15/16 01:30 12/15/16 01:29 Insulin Aspart (novoLOG ASPART) SLIDING SCALE ACHS SC 11/15/16 16:00 12/15/16 15:59 11/20/16 17:01 2 UNITS Metoprolol Tartrate (Lopressor Tab) 25 mg BID PO 11/15/16 21:00 12/15/16 20:59 11/20/16 07:26 25 MG Miconazole Nitrate (Desenex Powder) 1 appln BID PRN EXT 11/16/16 17:00 12/16/16 16:59 11/19/16 05:39 1 APPLN Insulin Glargine 7 unit 7 unit QAM SC 11/21/16 09:00 12/21/16 08:59 Magnesium Sulfate/ Prmx (Magnesium Sulfate/Premixed D5W) 100 ml @ 100 mls/hr Q1H IV 11/20/16 16:00 11/20/16 17:59 11/20/16 16:09 100 MLS/HR Objective Vital Signs Date Time Temp Pulse Resp B/P Pulse Ox O2 Delivery O2 Flow Rate FiO2 11/20/16 15:17 36.7 82 20 134/85 94 Room Air 11/20/16 12:00 96 Room Air 11/20/16 11:11 36.7 91 20 160/89 97 Room Air 11/20/16 08:18 36.6 72 20 151/83 96 Room Air 11/20/16 08:08 96 Room Air 11/20/16 04:00 96 Room Air 11/20/16 03:16 36.9 82 17 145/80 94 Room Air 11/19/16 23:59 96 Room Air 11/19/16 23:33 36.7 81 17 157/78 96 Room Air 11/19/16 20:16 Room Air 11/19/16 19:34 36.9 68 16 128/76 96 Physical Exam General Appearance: no apparent distress Respiratory/Chest: lungs clear, normal breath sounds, no respiratory distress, no accessory muscle use Cardiovascular: regular rate, rhythm, no edema, no murmur Extremities: + pertinent finding (R BKA, L knee incision/wound vac in place) Laboratory Results Last 24 Hours Test 11/19/16 20:11 11/20/16 05:36 11/20/16 05:53 11/20/16 06:44 Bedside Glucose 125 mg/dl 147 mg/dl Sodium Level 133 mmol/L Potassium Level 3.9 mmol/L Chloride Level 97 mmol/L Carbon Dioxide Level 30 mmol/L Anion Gap 6.0 mmol/L Blood Urea Nitrogen 6 mg/dl Creatinine 0.39 mg/dl Est Creatinine Clear Calc Drug Dose 156.7 ml/min Estimated GFR () 126.0 Estimated GFR (Non- 108.7 BUN/Creatinine Ratio 16.4 Random Glucose 135 mg/dl Calcium Level 7.7 mg/dl Magnesium Level 1.5 mg/dl White Blood Count 12.63 K/uL Red Blood Count 3.19 M/uL Hemoglobin 9.1 g/dL Hematocrit 27.8 % Mean Corpuscular Volume 87.1 fL Mean Corpuscular Hemoglobin 28.5 pg Mean Corpuscular Hemoglobin Concent 32.7 g/dl RDW Standard Deviation 49.4 fL RDW Coefficient of Variation 15.4 % Platelet Count 701 K/uL Mean Platelet Volume 8.7 fL Test 11/20/16 11:14 11/20/16 16:01 Bedside Glucose 147 mg/dl 167 mg/dl Assessment and Plan SEPSIS with SEPTIC ARTHRITIS LEFT KNEE MRSA BACTEREMIA 11/20 repeat blood cultures - no growth to date to be on daptomycin as per ID for possible 12 weeks? wound care consultation placed, wound vac is now in place 11/19 will need 6 weeks of daptomycin blood cultures from 11/16, no growth to date replaced Mg and K d/c as per ortho 11/18 appreciate ID input appreciate orthopedic input s/p I&D on 11/14 continue Daptomycin post-operatively, patient required vasopressor support 11/17 -taken to OR 11/14 for removal of implants with insertion of antibiotic spacer -ID consulted -patient on daptomycin -synovial cultures with MRSA -weaned off pressor support UTI d/c Azactam ATRIAL FIBRILLATION required amiodarone drip due to hypotension amiodarone d/c'd now b-jodie restarted OLIGURIC ANNETTE -resolved with IVF's DM2 -hold glipizide -insulin coverage -glycemic pharmacy consulted ACUTE BLOOD LOSS ANEMIA - s/p 4 units PRBCs -transfused 4units PRBC's -Hgb stable HTN cont. b-jodie Pressure ulcer of right medial buttock, stage 2, POA and Pressure ulcer of medial sacrum, stage 2, not POA -- Wound care consulted H/O DVT -S/P IVC filter DVT PROPHYLAXIS: aspirin BID
[2016-11-20] MEDS: SENNA 8.6 MG TAB PO SCH (20:51)
[2016-11-21 03:43] VITALS: BP 148/86; PULSE 77; TEMP 37.2; O2SAT 93
[2016-11-21 04:00] VITALS: O2SAT 94
[2016-11-21 06:19] LABS: HEMATOCRIT 26.6 % (37-47); MEAN CORPUSCULAR HEMOGLOBIN 29.4 pg (25-34); MEAN CORPUSCULAR HGB CONC 33.1 g/dl (32-36); MEAN PLATELET VOLUME 8.5 fL (7.4-10.4); PLATELET COUNT 737 K/uL (130-400); RED BLOOD COUNT 2.99 M/uL (4.2-5.4); WHITE BLOOD COUNT 10.35 K/uL (4.8-10.8)
[2016-11-21] MEDS: TRAMADOL HCL 50 MG TAB PO PRN ×3 (06:26→20:21)
[2016-11-21] MEDS: INSULIN ASPART 100 UNITS/ML 3 ML PEN SC SCH ×4 (07:00→21:58)
[2016-11-21 07:11] LABS: BUN/CREATININE RATIO 15.4 (10-20); CALCIUM 7.3 mg/dl (8.5-10.1); CREATININE 0.42 mg/dl (0.60-1.20); POTASSIUM 3.9 mmol/L (3.5-5.1)
[2016-11-21 07:39] VITALS: BP 166/93; PULSE 84; TEMP 36.8; O2SAT 95
[2016-11-21] MEDS: DOCUSATE SODIUM 100 MG CAP PO SCH ×2 (08:28→21:56)
[2016-11-21] MEDS: FERROUS GLUCONATE 324 MG TAB PO SCH ×3 (08:28→16:55)
[2016-11-21] MEDS: PANTOprazole SOD 40 MG TAB PO SCH (08:28)
[2016-11-21] MEDS: ASPIRIN 81 MG ECTAB PO SCH ×2 (08:28→21:56)
[2016-11-21] MEDS: INSULIN GLARGINE SOLOSTAR 100 UNITS/ML 3 ML PEN SC SCH (08:28)
[2016-11-21] MEDS: METOPROLOL TARTRATE 25 MG TAB PO SCH ×2 (08:29→21:56)
[2016-11-21] MEDS: MULTIVITAMIN TAB PO SCH (08:29)
[2016-11-21] MEDS: MICONAZOLE NITRATE POWDER 43 GM EXT PRN (10:09)
--- NOTE | 2016-11-21 10:42 | Progress Note ---
Subjective Date of Service: Nov 21, 2016. Subjective pt eval by wound care, for vac placement and suture removal. No fevers overnight. tolerating dapto. repeat blood cultures remain negative, echo pending. Now initial superficial culture with carton folder as well. pansensitive. wbc down to 10 today, improving. No overnight events. Objective Vital Signs Date Time Temp Pulse Resp B/P Pulse Ox O2 Delivery O2 Flow Rate FiO2 11/21/16 07:53 Room Air 11/21/16 07:39 36.8 84 16 166/93 95 Room Air 11/21/16 04:00 94 Room Air 11/21/16 03:43 37.2 77 22 148/86 93 Room Air 11/20/16 23:59 94 Room Air 11/20/16 23:50 36.7 89 22 151/74 94 Room Air 11/20/16 20:53 99 150/85 11/20/16 19:45 Room Air 11/20/16 19:37 36.8 87 20 149/86 95 Room Air 11/20/16 16:00 Room Air 11/20/16 15:17 36.7 82 20 134/85 94 Room Air 11/20/16 12:00 96 Room Air 11/20/16 11:11 36.7 91 20 160/89 97 Room Air Laboratory Results Item Value Date Time Blood Culture - Preliminary Resulted 11/16/16 1006 Blood NO GROWTH TO DATE. Blood Culture - Preliminary Resulted 11/16/16 0840 Blood NO GROWTH TO DATE. Blood Culture - Final Complete 11/14/16 1327 Blood Staphylococcus Aureus Gram Stain - Final Resulted 11/13/16 1350 Joint Fluid/Space (Synovial) Knee Left Gram Stain - Final Complete 11/13/16 0000 Joint Fluid/Space (Synovial) Knee Left Last 24 Hours Test 11/20/16 11:14 11/20/16 16:01 11/20/16 20:11 11/21/16 06:09 Bedside Glucose 147 mg/dl 167 mg/dl 142 mg/dl White Blood Count 10.35 K/uL Red Blood Count 2.99 M/uL Hemoglobin 8.8 g/dL Hematocrit 26.6 % Mean Corpuscular Volume 89.0 fL Mean Corpuscular Hemoglobin 29.4 pg Mean Corpuscular Hemoglobin Concent 33.1 g/dl RDW Standard Deviation 50.4 fL RDW Coefficient of Variation 15.4 % Platelet Count 737 K/uL Mean Platelet Volume 8.5 fL Sodium Level 136 mmol/L Potassium Level 3.9 mmol/L Chloride Level 99 mmol/L Carbon Dioxide Level 29 mmol/L Anion Gap 8.0 mmol/L Blood Urea Nitrogen 6 mg/dl Creatinine 0.42 mg/dl Est Creatinine Clear Calc Drug Dose 145.2 ml/min Estimated GFR () 122.9 Estimated GFR (Non- 106.1 BUN/Creatinine Ratio 15.4 Random Glucose 146 mg/dl Calcium Level 7.3 mg/dl Test 11/21/16 06:57 Bedside Glucose 148 mg/dl Assessment and Plan (1) Infection of total left knee replacement Assessment & Plan: continue dapto, will need several weeks. pt states she will not have repeat surgery for 12 weeks, will need long course of abx. will need weekly cbc,cmp, esr, cpk while on dapto. repeat cultures negative to date. will need ID follow up as well as ortho follow up post d/c pt for vac placement, will need continue follow up at wound center post d/c would give min 6 weeks dapto, check weekly labs. would suggest echo r/o IE. repeat cultures pending, overall improving, stable for d/c when otherwise stable , will plan to follow at wound center post d/c (2) MRSA (methicillin resistant Staphylococcus aureus) septicemia (3) Leukocytosis
[2016-11-21 11:31] VITALS: BP 159/86; PULSE 75; TEMP 36.7; O2SAT 94
--- NOTE | 2016-11-21 12:37 | Pharmacy Progress Note ---
Glycemic Control: Progress Nt Date of Service Nov 21, 2016. Scope Glycemic Pharmacist consulted by Dr Betancourt on 11/13/16 for glycemic control and to write orders per [facility] inpatient glycemic control protocol. Objective Accuchecks BSG (last 24hrs): Test 11/20/16 16:01 11/20/16 20:11 11/21/16 06:09 11/21/16 06:57 Bedside Glucose 167 mg/dl (70-90) 142 mg/dl (70-90) 148 mg/dl (70-90) Random Glucose 146 mg/dl (70-99) Laboratory Data (last 24hrs) Test 11/21/16 06:09 Anion Gap 8.0 mmol/L BUN/Creatinine Ratio 15.4 Blood Urea Nitrogen 6 mg/dl Creatinine 0.42 mg/dl Potassium Level 3.9 mmol/L Sodium Level 136 mmol/L White Blood Count 10.35 K/uL Recent Pertinent Medications Outpatient Anti-diabetic Regimen: * Lantus 18 units BID * Novolog per sliding scale ACHS * Glipizide ER 10mg Q AM * A1c = 7.7 % 10/20/16 The patient is currently receiving: * Basal insulin: Lantus 7 units every 24 hours - dosed in the AM * Correctional Insulin: Novolog Correction per scale ACHS Goal Range: Low 140 mg/dL - High 180 mg/dL Correction Factor: 30 mg/dL/unit * Prandial insulin: Per carb ratio of 1 unit per 15 grams CHO consumed * Oral Agents: None currently Risk Factors for Insulin Resistance: * Steroids: n/a * Infection: infected L TKA; receiving Daptomycin * Pressors: n/a * IVF: n/a * Recent Surgery: POD # 7 s/p I&D, removal of infected hardware and placement of abx spacer * Diet: T2DM / Low Na diet ordered; not consuming large amounts w/ meals * Mechanical Ventilation: n/a Assessment & Plan ASSESSMENT: 11/16/16 * Pt is a 66 yo female readmitted s/p L TKR on 10/22/16. Due to infection, patient taken to OR 11/14/16. * 11/14: All AM insulins held. Pt initiated on dextrose containing fluids. Pt hypotensive, started on pressors and sent to ICU. -MD started insulin drip that night for BSGs >350 mg/dL and dextrose containing fluids discontinued * 11/15: BSGs stabilized and patient looking much better, advanced to clears--> Transition back to basal/bolus * Patient received a total of 23 units (+ drip overlap) in the last 24 hours * Fasting BSG 61 mg/dL- D25 pushed per protocol * Patient asymptomatic- breakfast tray consumed without coverage due to ongoing emergencies in ICU * Lunch BSG 69 mg/dL- nurse called pharmacy, patient ate full tray plus juice and recheck was only 85 mg/dL * My plan today will be to hold all basal insulin until BSG >140 mg/dL and remove carb coverage due to sustained hypoglycemia 11/17/16 * Ms. Johnson received 0 units of insulin yesterday with all BSGs remaining below 90, even with dextrose IVFs running * Unsure of reason for continued "low" BSGs w/o need for insulin * Plan will be to continue with insulin orders and resume basal and/or carb ratio once BSGs become more elevated 11/18/16 * BSGs have finally started to increase off dextrose IVFs - up to 236 at lunchtime today * Of note, RN reported to me later that pt takes 2-3 hrs to eat meals so this may have been a post-prandial BSG; regardless, BSGs are increasing enough to warrant resumption of insulin * Due to the recent history of lows, will be conservative with insulin resumption (~25% of outpatient Lantus dose) and a fairly loose CR * Will continue overnight accuchecks but only a single check 11/19/16 * Ms. Laras BSGs responded nicely to the resumption of basal and prandial insulin yesterday * Her fasting BSG was less than 140 this AM so she received 1/2 of her Lantus dose but that seems acceptable * Will plan to continue with the same conservative regimen - no new stressors have been added 11/20/16 * BSGs have ranged from 125-182 with 9 units of insulin given yesterday * I would like to transition to a set dose of Lantus now that we've seen a few days of "sliding scale" doses * 10 units appears to be a little too much and 5 units is maybe not enough * Will split the difference and start 7 units daily - unfortunately, the dose was given fairly early this AM so the set dose will start tomorrow 11/21/16 * BSGs have ranged 135-167 over the last 24 hours * Fasting BSG 148 this AM w/ 10 units of Lantus on board - slightly above goal, but acceptable; newest Lantus order is for 7 units daily in the AM, this may not be enough, but we have been giving either 5 or 10 units daily each AM. Would like a clear fasting BSG trend before changing the dose again - will continue to trial 7 units Q AM. * Post-prandial BSGs controlled with current CR and CF PLAN FOR INPATIENT GLYCEMIC CONTROL: * Continuing Lantus 7 units SQ Q AM * Continuing correction factor 30 mg/dl/unit * Continuing carb ratio 1 unit per 15 grams CHO consumed * Changing goal range to Low 120 mg/dL - High 160 mg/dL * Please note that the plan above was derived based on current level of insulin resistance and hospital stress. These recommendations are appropriate for inpatient admission only. Plan of care upon discharge will need to be reassessed to avoid potential outpatient hypo/hyperglycemia. Thank you.
[2016-11-21] MEDS: DAPTOmycin IV 600 MG in SODIUM CHLORIDE 0.9% 50ML 50 ML IV SCH (13:43)
--- NOTE | 2016-11-21 15:00 | Orthopedic Progress Note ---
Orthopedic Progress Note Date of Service Nov 21, 2016. Subjective Reports: feeling well, using DAMPPROOFER, Denies: SOB, calf pain, chest pain, light headedness, nausea / vomiting Objective calves soft nontender, N/V intact, capillary refill less than 2 sec., dressing C /D/I, A&O x3, toes mobile Date Time Temp Pulse Resp B/P Pulse Ox O2 Delivery O2 Flow Rate FiO2 11/21/16 12:00 Room Air 11/21/16 11:31 36.7 75 16 159/86 94 Room Air 11/21/16 07:53 Room Air 11/21/16 07:39 36.8 84 16 166/93 95 Room Air 11/21/16 04:00 94 Room Air 11/21/16 03:43 37.2 77 22 148/86 93 Room Air 11/20/16 23:59 94 Room Air 11/20/16 23:50 36.7 89 22 151/74 94 Room Air 11/20/16 20:53 99 150/85 11/20/16 19:45 Room Air 11/20/16 19:37 36.8 87 20 149/86 95 Room Air 11/20/16 16:00 Room Air 11/20/16 15:17 36.7 82 20 134/85 94 Room Air Laboratory Results 24 Hours: Test 11/21/16 06:09 Hematocrit 26.6 % Hemoglobin 8.8 g/dL Assessment & Plan Assessment: SEPTIC ARTHRITIS LEFT TOTAL KNEE ARTHROPLASTY -POD #7 s/p I&D, removal total knee implant, placement of antibiotic spacer and prevena wound vac -ID Consult, currently on Daptomycin. -blood cultures positive for MRSA ; Knee cx's positive or MRSA, latest blood cultures from 11/16/16 ngtd -Dr Botello consulted. - wound care consulted, aquacel dressing placed, will cont with daily dressing changes, will consult dr chang UTI -urine culture with Citrobacter ATRIAL FIBRILLATION DM2 -glycemic pharmacy consulted ACUTE BLOOD LOSS ANEMIA -transfused 4 units PRBC's during this admission - Hgb 9.0 today -S/P IVC filter Inhouse Planning Pain Management: Ultram, Morphine, Oxy IR DVT Prophylaxis: TEDs, SCDs, ASA, other (IVC Filter) Discharge Planning Discharge Planning: uncertain
[2016-11-21 15:19] VITALS: BP_SYST 160; BP_SYST 164; BP_DIAS 81; BP_DIAS 94; PULSE 77; PULSE 80; TEMP 36.7; O2SAT 96
[2016-11-21 16:00] VITALS: O2SAT 96
--- NOTE | 2016-11-21 21:08 | Progress Note ---
Internal Med Progress Note Date of Service: Nov 21, 2016. Provider Documentation: SUBJECTIVE: complain of pain on left knee where wound vac is attached with continued drainage having pain 8/10 got some pain medication few moments back no fever or chills OBJECTIVE: Vital Signs-as noted below Exam: General-chronically ill appearing Eyes-sclera non icteric ENT-NAD Neck-no JVD Lungs-CTA. no wheeze or rales Heart-regular S1/S2 Abdomen-soft, non tender Extremities-s/p Rt BKA , bandage present on stump , left knee wound vac presented with continued drainage of serosanguineous fluid left foot warm , normal capillary refill Neuro-no focal neurological deficit, AAO x3 Lab data as noted below. ASSESSMENT & PLAN: SEPSIS with SEPTIC ARTHRITIS LEFT KNEE MRSA BACTEREMIA s/p I&D and removal of implants with insertion of antibiotic spacer on 11/14 POD # 7 on wound vac Synovial fluid culture MRSA Blood culture -staph aureus /MRSA recent blood cultures on 11/14/16 - no growth to date appreciate ID eval Recommend to Continue daptomycin for 6 weeks will need weekly CBC ,CMP , ESR , CPK check while on daptomycin . Will need continued ID follow up on discharge Continue Wound Vac -will need follow up at Wound Center after discharge ECHO : no valvular vegetation noted will order for PICC line placement for continued IV Daptomycin for 6 weeks D/C Rt IJ Center line ATRIAL FIBRILLATION cont on Beta jodie DM2 -hold glipizide -insulin coverage -glycemic pharmacy consulted ACUTE BLOOD LOSS ANEMIA - s/p 4 units PRBCs -transfused 4units PRBC's -Hgb stable HTN cont. b-jodie PRESSURE ULCERS Pressure ulcer of right medial buttock, stage 2, POA and Pressure ulcer of medial sacrum, stage 2, not POA -- Wound care consulted H/O DVT -S/P IVC filter DVT PROPHYLAXIS: aspirin BID DISPOSITION ; per Ortho will need SNF for continued PT/wound care /IV Abx DVT PROPHYLAXIS [] DISPOSITION [] Vital Signs: Date Time Temp Pulse Resp B/P Pulse Ox O2 Delivery O2 Flow Rate FiO2 11/21/16 16:00 96 Room Air 11/21/16 15:19 36.7 80 16 160/94 96 Room Air 77 164/81 11/21/16 12:00 Room Air 11/21/16 11:31 36.7 75 16 159/86 94 Room Air 11/21/16 07:53 Room Air 11/21/16 07:39 36.8 84 16 166/93 95 Room Air 11/21/16 04:00 94 Room Air 11/21/16 03:43 37.2 77 22 148/86 93 Room Air 11/20/16 23:59 94 Room Air 11/20/16 23:50 36.7 89 22 151/74 94 Room Air Lab Results: Results Past 24 Hours Test 11/21/16 06:09 11/21/16 06:57 11/21/16 11:17 11/21/16 16:31 Range/Units White Blood Count 10.35 4.8-10.8 K/uL Red Blood Count 2.99 4.2-5.4 M/uL Hemoglobin 8.8 12.0-16.0 g/dL Hematocrit 26.6 37-47 % Mean Corpuscular Volume 89.0 80-100 fL Mean Corpuscular Hemoglobin 29.4 25-34 pg Mean Corpuscular Hemoglobin Concent 33.1 32-36 g/dl RDW Standard Deviation 50.4 36.4-46.3 fL RDW Coefficient of Variation 15.4 11.5-14.5 % Platelet Count 737 130-400 K/uL Mean Platelet Volume 8.5 7.4-10.4 fL Sodium Level 136 136-145 mmol/L Potassium Level 3.9 3.5-5.1 mmol/L Chloride Level 99 98-107 mmol/L Carbon Dioxide Level 29 21-32 mmol/L Anion Gap 8.0 3-11 mmol/L Blood Urea Nitrogen 6 7-18 mg/dl Creatinine 0.42 0.60-1.20 mg/dl Est Creatinine Clear Calc Drug Dose 145.2 ml/min Estimated GFR () 122.9 Estimated GFR (Non- 106.1 BUN/Creatinine Ratio 15.4 10-20 Random Glucose 146 70-99 mg/dl Calcium Level 7.3 8.5-10.1 mg/dl Bedside Glucose 148 174 177 70-90 mg/dl Test 11/21/16 20:50 Range/Units Bedside Glucose 205 70-90 mg/dl
[2016-11-21] MEDS: SENNA 8.6 MG TAB PO SCH (21:56)
[2016-11-22] VITALS (10 sets, daily range): BP systolic 144–183; BP diastolic 73–97; PULSE 73–103; TEMP 36.5–37.1; O2SAT 93–97
[2016-11-22] MEDS: INSULIN ASPART 100 UNITS/ML 3 ML PEN SC SCH ×4 (07:00→21:00)
[2016-11-22] MEDS: OXYCODONE HCL IR 5 MG TAB (IMMEDIATE RELEASE) PO PRN ×2 (07:22→15:12)
[2016-11-22] MEDS: ASPIRIN 81 MG ECTAB PO SCH ×2 (07:40→20:53)
[2016-11-22] MEDS: FERROUS GLUCONATE 324 MG TAB PO SCH ×3 (07:40→17:45)
[2016-11-22] MEDS: DOCUSATE SODIUM 100 MG CAP PO SCH ×2 (07:40→20:50)
[2016-11-22] MEDS: METOPROLOL TARTRATE 25 MG TAB PO SCH ×2 (07:41→20:57)
[2016-11-22] MEDS: MULTIVITAMIN TAB PO SCH (07:41)
[2016-11-22] MEDS: PANTOprazole SOD 40 MG TAB PO SCH (07:42)
[2016-11-22] MEDS: INSULIN GLARGINE SOLOSTAR 100 UNITS/ML 3 ML PEN SC SCH (08:53)
--- NOTE | 2016-11-22 10:36 | Orthopedic Progress Note ---
Orthopedic Progress Note Date of Service Nov 22, 2016. Subjective Reports: nausea / vomiting, Denies: SOB, calf pain, chest pain, light headedness Objective calves soft nontender, N/V intact, capillary refill less than 2 sec., dressing C /D/I, A&O x3, toes mobile Date Time Temp Pulse Resp B/P Pulse Ox O2 Delivery O2 Flow Rate FiO2 11/22/16 10:09 36.7 89 18 95 11/22/16 08:08 36.7 89 20 178/86 95 Room Air 11/22/16 08:00 Room Air 11/22/16 04:00 Room Air 11/22/16 03:20 36.6 84 18 164/97 97 Room Air 11/22/16 00:03 36.5 89 18 167/86 95 Room Air 11/22/16 00:02 Room Air 11/21/16 20:00 Room Air 11/21/16 16:00 96 Room Air 11/21/16 15:19 36.7 80 16 160/94 96 Room Air 77 164/81 11/21/16 12:00 Room Air 11/21/16 11:31 36.7 75 16 159/86 94 Room Air Assessment & Plan Assessment: SEPTIC ARTHRITIS LEFT TOTAL KNEE ARTHROPLASTY -POD #8 s/p I&D, removal total knee implant, placement of antibiotic spacer and prevena wound vac -ID Consult, currently on Daptomycin. -blood cultures positive for MRSA ; Knee cx's positive or MRSA, latest blood cultures from 11/16/16 ngtd -Dr Botello consulted. - wound care consulted, aquacel dressing placed, will cont with daily dressing changes, will consult dr chang UTI -urine culture with Citrobacter ATRIAL FIBRILLATION DM2 -glycemic pharmacy consulted ACUTE BLOOD LOSS ANEMIA -transfused 4 units PRBC's during this admission -S/P IVC filter Inhouse Planning Pain Management: Ultram, Morphine, Oxy IR DVT Prophylaxis: TEDs, SCDs, ASA, other (IVC Filter) Discharge Planning Discharge Planning: uncertain
--- NOTE | 2016-11-22 14:09 | DIAGNOSTIC IMAGING REPORT ---
CHEST ONE VIEW PORTABLE HISTORY: picc placement COMPARISON: Chest 11/14/2016. FINDINGS: Low lung volumes. Left basilar opacity/effusion. The heart is normal in size. Mild central pulmonary vascular congestion without overt edema. No pneumothorax. Right jugular central venous catheter terminates in the SVC. The tip of the right PICC terminates in the right atrium. This should be pulled back by approximately 3-4 cm. IMPRESSION: 1. The tip of the right PICC terminates in the right atrium. This should be pulled back by approximately 3 to 4 cm. 2. Interval development of a left basilar density/effusion. 3. Mild central pulmonary vascular congestion without overt edema. Electronically signed by: Zane Monroy M.D. 11/22/2016 2:07 PM Dictated Date/Time: 11/22/2016 2:05 PM
--- NOTE | 2016-11-22 15:11 | Pharmacy Progress Note ---
Glycemic Control: Progress Nt Date of Service Nov 22, 2016. Scope Glycemic Pharmacist consulted by Dr Betancourt on 11/13/16 for glycemic control and to write orders per [facility] inpatient glycemic control protocol. Objective Accuchecks BSG (last 24hrs): Test 11/21/16 16:31 11/21/16 20:50 11/22/16 06:44 11/22/16 11:42 Bedside Glucose 177 mg/dl (70-90) 205 mg/dl (70-90) 178 mg/dl (70-90) 156 mg/dl (70-90) Recent Pertinent Medications Outpatient Anti-diabetic Regimen: * Lantus 18 units BID * NovoLog per sliding scale ACHS * Glipizide ER 10mg Q AM * A1c = 7.7 % 10/20/16 The patient is currently receiving: * Basal insulin: Lantus 7 units every 24 hours - dosed in the AM * Correctional Insulin: NovoLog Correction per scale AC/HS Goal Range: Low 120 mg/dL - High 160 mg/dL Correction Factor: 30 mg/dL/unit * Prandial insulin: Per carb ratio of 1 unit per 15 grams CHO consumed * Oral Agents: None currently Risk Factors for Insulin Resistance: * Steroids: n/a * Infection: infected L TKA; receiving Daptomycin * Pressors: n/a * IVF: n/a * Recent Surgery: POD # 8 s/p I&D, removal of infected hardware and placement of abx spacer * Diet: T2DM / Low Na diet ordered * Mechanical Ventilation: n/a Assessment & Plan ASSESSMENT: 11/16/16 * Pt is a 66 yo female readmitted s/p L TKR on 10/22/16. Due to infection, patient taken to OR 11/14/16. * 11/14: All AM insulins held. Pt initiated on dextrose containing fluids. Pt hypotensive, started on pressors and sent to ICU. -MD started insulin drip that night for BSGs >350 mg/dL and dextrose containing fluids discontinued * 11/15: BSGs stabilized and patient looking much better, advanced to clears--> Transition back to basal/bolus * Patient received a total of 23 units (+ drip overlap) in the last 24 hours * Fasting BSG 61 mg/dL- D25 pushed per protocol * Patient asymptomatic- breakfast tray consumed without coverage due to ongoing emergencies in ICU * Lunch BSG 69 mg/dL- nurse called pharmacy, patient ate full tray plus juice and recheck was only 85 mg/dL * My plan today will be to hold all basal insulin until BSG >140 mg/dL and remove carb coverage due to sustained hypoglycemia 11/18/16 * BSGs have finally started to increase off dextrose IVFs - up to 236 at lunchtime today * Of note, RN reported to me later that pt takes 2-3 hrs to eat meals so this may have been a post-prandial BSG; regardless, BSGs are increasing enough to warrant resumption of insulin * Due to the recent history of lows, will be conservative with insulin resumption (~25% of outpatient Lantus dose) and a fairly loose CR * Will continue overnight accuchecks but only a single check 11/20/16 * BSGs have ranged from 125-182 with 9 units of insulin given yesterday * I would like to transition to a set dose of Lantus now that we've seen a few days of "sliding scale" doses * 10 units appears to be a little too much and 5 units is maybe not enough * Will split the difference and start 7 units daily - unfortunately, the dose was given fairly early this AM so the set dose will start tomorrow 11/21/16 * BSGs have ranged 135-167 over the last 24 hours * Fasting BSG 148 this AM w/ 10 units of Lantus on board - slightly above goal, but acceptable; newest Lantus order is for 7 units daily in the AM, this may not be enough, but we have been giving either 5 or 10 units daily each AM. Would like a clear fasting BSG trend before changing the dose again - will continue to trial 7 units Q AM. * Post-prandial BSGs controlled with current CR and CF 11/22/16 * BSGs ranging from 146-205mg/dL over the last 24 hours * slight rise in BSGs throughout the day * Fasting BSG 116-->147-->148-->178 mg/dL * increase basal insulin slightly in response to this trend PLAN FOR INPATIENT GLYCEMIC CONTROL: * Increase Lantus * 10 units SQ Q AM * Continue NovoLog AC and HS * Continuing correction factor 30 mg/dl/unit * Tighten carb ratio 1 unit per 10 grams CHO consumed * Continue goal range of Low 120 mg/dL - High 160 mg/dL * A1c added to discharge instructions RECOMMENDATIONS FOR DISCHARGE: * Likely, Ms Johnson can continue home regimen at discharge * Please note that the plan above was derived based on current level of insulin resistance and hospital stress. These recommendations are appropriate for inpatient admission only. Plan of care upon discharge will need to be reassessed to avoid potential outpatient hypo/hyperglycemia. Thank you.
--- NOTE | 2016-11-22 16:15 | DIAGNOSTIC IMAGING REPORT ---
CHEST ONE VIEW PORTABLE CLINICAL HISTORY: picc adjustment COMPARISON STUDY: Chest radiograph November 22, 2016 at 1:59 PM. FINDINGS: The tip of right PICC projects over the cavoatrial junction. The catheter could be withdrawn 2 cm. There is no pneumothorax. Left basilar opacity favors atelectasis. The right internal jugular central line has been removed. IMPRESSION: Tip of right PICC projects over the cavoatrial junction. Electronically signed by: Deny Connelly M.D. 11/22/2016 4:13 PM Dictated Date/Time: 11/22/2016 4:11 PM
[2016-11-22] MEDS: ONDANSETRON INJ 2 MG/ML 2 ML VIAL IV PRN (18:15)
[2016-11-22] MEDS: DAPTOmycin IV 600 MG in SODIUM CHLORIDE 0.9% 50ML 50 ML IV SCH (18:16)
--- NOTE | 2016-11-22 19:56 | Progress Note ---
Internal Med Progress Note Date of Service: Nov 22, 2016. Provider Documentation: SUBJECTIVE: feels better today minimum pain on left knee wound vac site no fever or chills OBJECTIVE: Vital Signs-as noted below Exam: General-chronically ill appearing Eyes-sclera non icteric ENT-NAD Neck-no JVD Lungs-CTA. no wheeze or rales Heart-regular S1/S2 Abdomen-soft, non tender Extremities-s/p Rt BKA , bandage present on stump , left knee wound vac presented with continued drainage of serosanguineous fluid left foot warm , normal capillary refill Neuro-no focal neurological deficit, AAO x3 Lab data as noted below. ASSESSMENT & PLAN: SEPSIS with SEPTIC ARTHRITIS LEFT KNEE MRSA BACTEREMIA s/p I&D and removal of implants with insertion of antibiotic spacer on 11/14 POD # 8 on wound vac Synovial fluid culture MRSA Blood culture -staph aureus /MRSA recent blood cultures on 11/14/16 - no growth to date appreciate ID eval Recommend to Continue daptomycin for 6 weeks will need weekly CBC ,CMP , ESR , CPK check while on daptomycin . Will need continued ID follow up on discharge Continue Wound Vac -will need follow up at Wound Center after discharge ECHO : no valvular vegetation noted PICC line placed will need arrangements for IV Daptomycin at SNF for 6 weeks ATRIAL FIBRILLATION cont on Beta jodie DM2 -hold glipizide -insulin coverage -glycemic pharmacy consulted ACUTE BLOOD LOSS ANEMIA - s/p 4 units PRBCs -transfused 4units PRBC's -Hgb stable HTN cont. b-jodie PRESSURE ULCERS Pressure ulcer of right medial buttock, stage 2, POA and Pressure ulcer of medial sacrum, stage 2, not POA -- Wound care consulted H/O DVT -S/P IVC filter DVT PROPHYLAXIS: aspirin BID DISPOSITION ; per Ortho will need SNF for continued PT/wound care /IV Abx Vital Signs: Date Time Temp Pulse Resp B/P Pulse Ox O2 Delivery O2 Flow Rate FiO2 11/22/16 16:05 36.7 73 16 152/85 95 Room Air 11/22/16 15:50 36.6 90 16 165/77 96 Room Air 11/22/16 15:23 37.0 103 16 183/88 95 Room Air 11/22/16 15:12 Room Air 11/22/16 11:35 37.1 84 18 172/94 93 Room Air 11/22/16 11:16 Room Air 11/22/16 10:09 36.7 89 18 95 11/22/16 08:08 36.7 89 20 178/86 95 Room Air 11/22/16 08:00 Room Air 11/22/16 04:00 Room Air 11/22/16 03:20 36.6 84 18 164/97 97 Room Air 11/22/16 00:03 36.5 89 18 167/86 95 Room Air 11/22/16 00:02 Room Air 11/21/16 20:00 Room Air Lab Results: Results Past 24 Hours Test 11/21/16 20:50 11/22/16 06:44 11/22/16 11:42 11/22/16 17:09 Range/Units Bedside Glucose 205 178 156 159 70-90 mg/dl
[2016-11-22] MEDS: SENNA 8.6 MG TAB PO SCH (20:50)
[2016-11-23 07:26] VITALS: BP 169/92; PULSE 95; TEMP 37.1; O2SAT 95
[2016-11-23] MEDS: OXYCODONE HCL IR 5 MG TAB (IMMEDIATE RELEASE) PO PRN ×3 (07:46→19:15)
[2016-11-23] MEDS: ONDANSETRON INJ 2 MG/ML 2 ML VIAL IV PRN (07:47)
--- NOTE | 2016-11-23 09:18 | Orthopedic Progress Note ---
Orthopedic Progress Note Date of Service Nov 23, 2016. Subjective Post OP Day: Reports: feeling well, pain controlled w PO medications, Denies: SOB, calf pain , chest pain, light headedness, nausea / vomiting Objective calves soft nontender, N/V intact, capillary refill less than 2 sec., dressing C /D/I, A&O x3 wound vac intact and changed yesterday Date Time Temp Pulse Resp B/P Pulse Ox O2 Delivery O2 Flow Rate FiO2 11/23/16 07:33 Room Air 11/23/16 07:26 37.1 95 16 169/92 95 Room Air 11/22/16 23:00 36.9 86 14 154/82 95 Room Air 11/22/16 20:55 73 144/73 11/22/16 19:50 Room Air 11/22/16 16:05 36.7 73 16 152/85 95 Room Air 11/22/16 15:50 36.6 90 16 165/77 96 Room Air 11/22/16 15:23 37.0 103 16 183/88 95 Room Air 11/22/16 15:12 Room Air 11/22/16 11:35 37.1 84 18 172/94 93 Room Air 11/22/16 11:16 Room Air 11/22/16 10:09 36.7 89 18 95 Assessment & Plan Assessment: SEPTIC ARTHRITIS LEFT TOTAL KNEE ARTHROPLASTY -POD #9 s/p I&D, removal total knee implant, placement of antibiotic spacer and prevena wound vac -ID Consult, currently on Daptomycin. -blood cultures positive for MRSA ; Knee cx's positive or MRSA, latest blood cultures from 11/16/16 ngtd -Dr Botello consulted. UTI -urine culture with Citrobacter ATRIAL FIBRILLATION DM2 -glycemic pharmacy consulted ACUTE BLOOD LOSS ANEMIA -transfused 4 units PRBC's during this admission -S/P IVC filter Inhouse Planning Pain Management: Ultram, Oxy IR DVT Prophylaxis: TEDs, SCDs, ASA, other (IVC Filter) Discharge Planning Discharge Planning: senior living facility (Hopefully SNF if wound vac changed to traditional vac tomorrow. Will need IV dapto 6 weeks. )
[2016-11-23] MEDS: INSULIN ASPART 100 UNITS/ML 3 ML PEN SC SCH ×4 (09:26→20:41)
[2016-11-23] MEDS: INSULIN GLARGINE SOLOSTAR 100 UNITS/ML 3 ML PEN SC SCH (09:27)
[2016-11-23] MEDS: PANTOprazole SOD 40 MG TAB PO SCH (09:29)
[2016-11-23] MEDS: FERROUS GLUCONATE 324 MG TAB PO SCH ×3 (09:29→17:44)
[2016-11-23] MEDS: MULTIVITAMIN TAB PO SCH (09:29)
[2016-11-23] MEDS: ASPIRIN 81 MG ECTAB PO SCH ×2 (09:30→20:36)
[2016-11-23] MEDS: DOCUSATE SODIUM 100 MG CAP PO SCH ×2 (09:30→19:16)
[2016-11-23] MEDS: METOPROLOL TARTRATE 25 MG TAB PO SCH ×2 (09:30→20:36)
[2016-11-23] MEDS: DAPTOmycin IV 600 MG in SODIUM CHLORIDE 0.9% 50ML 50 ML IV SCH (13:43)
[2016-11-23 15:14] VITALS: BP 133/78; PULSE 82; TEMP 36.6; O2SAT 96
[2016-11-23 16:00] VITALS: O2SAT 96
[2016-11-23] MEDS: MAGNESIUM HYDROXIDE SUSP 30 ML UDC PO PRN (19:15)
[2016-11-23] MEDS: SENNA 8.6 MG TAB PO SCH (19:16)
[2016-11-23 20:31] VITALS: BP 144/71; PULSE 58
[2016-11-23 20:34] VITALS: PULSE 104; O2SAT 93
[2016-11-23 22:50] VITALS: BP 143/81; PULSE 93; TEMP 37.4; O2SAT 93
[2016-11-24 06:21] LABS: HEMATOCRIT 26.9 % (37-47); MEAN CELL VOLUME 89.4 fL (80-100); MEAN CORPUSCULAR HEMOGLOBIN 29.6 pg (25-34); MEAN CORPUSCULAR HGB CONC 33.1 g/dl (32-36); MEAN PLATELET VOLUME 8.4 fL (7.4-10.4); PLATELET COUNT 886 K/uL (130-400); RED BLOOD COUNT 3.01 M/uL (4.2-5.4); WHITE BLOOD COUNT 10.19 K/uL (4.8-10.8)
[2016-11-24 06:37] LABS: BUN/CREATININE RATIO 17.9 (10-20); CALCIUM 7.7 mg/dl (8.5-10.1); CREATININE 0.48 mg/dl (0.60-1.20); POTASSIUM 3.6 mmol/L (3.5-5.1)
[2016-11-24 07:17] VITALS: BP 164/86; PULSE 90; TEMP 37.4; O2SAT 91
--- NOTE | 2016-11-24 07:38 | Orthopedic Progress Note ---
Orthopedic Progress Note Date of Service Nov 24, 2016. Subjective Post OP Day: 10 Reports: pain controlled w PO medications, Denies: SOB, calf pain, chest pain, complaints, feeling well, light headedness, nausea / vomiting Objective calves soft nontender (left leg), N/V intact, dressing C/D/I (Left knee incisional irrigational wound vac intact), A&O x3, toes mobile able to wiggle toes, ankle pumps, sensation intact throughout left lower extremity Date Time Temp Pulse Resp B/P Pulse Ox O2 Delivery O2 Flow Rate FiO2 11/24/16 07:17 37.4 90 19 164/86 91 Room Air 11/23/16 22:50 37.4 93 16 143/81 93 Room Air 11/23/16 20:34 104 93 Room Air 11/23/16 20:31 58 144/71 11/23/16 19:05 Room Air 11/23/16 16:00 96 Room Air 11/23/16 15:14 36.6 82 16 133/78 96 Room Air Laboratory Results 24 Hours: Test 11/24/16 05:20 Hematocrit 26.9 % Hemoglobin 8.9 g/dL Assessment & Plan Assessment: SEPTIC ARTHRITIS LEFT TOTAL KNEE ARTHROPLASTY -POD #10 s/p I&D, removal total knee implant, placement of antibiotic spacer and prevena wound vac, was changed to Left knee incisional irrigational wound vac intact, to be re-evaluated today by wound care for possible transition to traditional wound vac. -ID Consult, currently on Daptomycin. -most recent blood cultures, final results no growth. -Dr Botello consulted. UTI -urine culture with Citrobacter ATRIAL FIBRILLATION DM2 -glycemic pharmacy consulted ACUTE BLOOD LOSS ANEMIA -transfused 4 units PRBC's during this admission -S/P IVC filter Plan: patient to be re-evaluated today and possible transition to a traditional wound vac, will need continued Daptomycin for at least 6 weeks, PICC placed. will need follow up with ID upon discharge, as well as f/u at wound center. will need weekly CBC, CMP, ESR, CPK during dapto therapy. likely discharge to SNF when stable. (1) Infection of total left knee replacement (2) MRSA (methicillin resistant Staphylococcus aureus) septicemia (3) Leukocytosis Discharge Planning Discharge Planning: care home facility (Hopefully SNF if wound vac changed to traditional vac tomorrow. Will need IV dapto 6 weeks. )
[2016-11-24] MEDS: OXYCODONE HCL IR 5 MG TAB (IMMEDIATE RELEASE) PO PRN ×2 (08:00→15:31)
[2016-11-24] MEDS: ONDANSETRON INJ 2 MG/ML 2 ML VIAL IV PRN ×2 (08:00→15:31)
[2016-11-24 08:07] VITALS: O2SAT 92
[2016-11-24 09:50] VITALS: BP 132/85; PULSE 87; O2SAT 93
[2016-11-24] MEDS ORDERED: LIDOCAINE HCL 2% LOCAL 50ML VIAL ONE (09:52)
[2016-11-24] MEDS: MoRPHine SULFATE 4 MG/ML 1 ML CARP\\VIAL IV PRN (09:52)
[2016-11-24] MEDS: INSULIN ASPART 100 UNITS/ML 3 ML PEN SC SCH ×4 (09:57→21:37)
[2016-11-24] MEDS: INSULIN GLARGINE SOLOSTAR 100 UNITS/ML 3 ML PEN SC SCH (09:59)
[2016-11-24] MEDS: FERROUS GLUCONATE 324 MG TAB PO SCH ×3 (10:00→17:57)
[2016-11-24] MEDS: METOPROLOL TARTRATE 25 MG TAB PO SCH ×2 (10:01→21:35)
[2016-11-24] MEDS: DOCUSATE SODIUM 100 MG CAP PO SCH ×2 (10:01→21:35)
[2016-11-24] MEDS: ASPIRIN 81 MG ECTAB PO SCH ×2 (10:01→21:35)
[2016-11-24] MEDS: PANTOprazole SOD 40 MG TAB PO SCH (10:02)
[2016-11-24] MEDS: MULTIVITAMIN TAB PO SCH (10:02)
--- NOTE | 2016-11-24 14:04 | PROGRESS NOTE ---
DATE: 11/24/2016 DATE: 11/24/2016. SUBJECTIVE: The patient is seen today for reevaluation of a postoperative wound to the left knee in the face of underlying infection. The patient has no specific complaints today. OBJECTIVE: The patient's vital signs were reviewed and found to be unremarkable. The patient is afebrile. The wound site today shows some surrounding blackened eschar to be present. No appreciable change from 3 days prior. No active drainage, no significant central slough. The proximal incision site is intact with no erythema or drainage noted. ASSESSMENT: Postoperative wound left knee. PLAN: At this time, the site did require debridement and with the patient's permission after the application of topical Xylocaine 4%, the surrounding eschar was debrided with scissors and forceps. Some underlying subcutaneous tissue was removed. Minimal bleeding occurred from the medial edge. There is still some persistent eschar present in the lateral edge site. The wound site now will be managed with routine outpatient wound VAC, black foam, 125 mm of negative pressure. Wound VAC changed Thursday, Thursday, Thursday. Further debridement will probably be indicated over the course of the next 1-2 weeks. This represented an excisional debridement of 33 sq cm . MTDD
[2016-11-24] MEDS: DAPTOmycin IV 600 MG in SODIUM CHLORIDE 0.9% 50ML 50 ML IV SCH (14:11)
--- NOTE | 2016-11-24 15:07 | Pharmacy Progress Note ---
Glycemic Control: Progress Nt Date of Service Nov 24, 2016. Scope Glycemic Pharmacist consulted by Dr Betancourt on 11/13/16 for glycemic control and to write orders per [facility] inpatient glycemic control protocol. Objective Accuchecks BSG (last 24hrs): Test 11/23/16 16:57 11/23/16 20:21 11/24/16 05:20 11/24/16 08:17 Bedside Glucose 167 mg/dl (70-90) 186 mg/dl (70-90) 189 mg/dl (70-90) Random Glucose 170 mg/dl (70-99) Test 11/24/16 12:21 Bedside Glucose 213 mg/dl (70-90) Laboratory Data (last 24hrs) HbA1c: Item Value Date Time Hemoglobin A1c 7.7 % H 10/20/16 0545 Recent Pertinent Medications Outpatient Anti-diabetic Regimen: * Lantus 18 units SQ BID * Glipizide ER 10mg PO Daily * NovoLog SSI QID The patient is currently receiving: * Basal insulin: Lantus 10 units every 24 hours given in the morning * Correctional Insulin: Novolog Correction per scale ACHS Goal Range: Low 120 mg/dL - High 160 mg/dL Correction Factor: 30 mg/dL/unit * Prandial insulin: Per carb ratio of 1 unit per 10 grams CHO consumed * Oral Agents: On hold for admission Risk Factors for Insulin Resistance: * Infection * Diet Assessment & Plan ASSESSMENT: * Patient is currently receiving an average of ~20-30 units of insulin per day * 10 units of basal insulin * 19 units of prandial/correctional insulin * BSGs ranging 167-213mg/dl over the past 24hrs * Anticipating insulin regimen will need increased for the next 24hrs d/t : * AM Fasting BSG = 189mg/dl therefore Basal insulin needs increased * Total daily dose = ~30 units therefore will re-distribute regimen 50%:50% basal:prandial to prevent hypo/hyperglycemia * Post-prandial BSGs are elevated/BSGs rise throughout the day therefore Tighten CF/CR * ADA & AACE recommend a goal blood sugar range 140-180 mg/dl for the majority of critically ill & non-critically ill patients. However, more stringent targets may be selected in individual cases. Will utilize more stringent goal of 110-140mg/dl based on patient age & comorbidities. Additionally, tighter glycemic control is warranted to facilitate wound/infection healing. PLAN FOR INPATIENT GLYCEMIC CONTROL: * Continue to hold outpatient oral diabetes medications * INCREASE Basal insulin with LANTUS 13 units SQ daily in AM * TIGHTEN NovoLog per scale ACHS or Q6hrs while NPO * Goal Range: Low 110 mg/dL - High 140 mg/dL * Correction Factor: 25 mg/dL/unit * Nutritional / Prandial insulin per carb ratio of 1 unit per 8 grams CHO consumed * Please note that the plan above was derived based on current level of insulin resistance and hospital stress. These recommendations are appropriate for inpatient admission only. Plan of care upon discharge will need to be reassessed to avoid potential outpatient hypo/hyperglycemia. Thank you.
[2016-11-24 15:20] VITALS: BP 116/81; PULSE 84; TEMP 36.6; O2SAT 95
--- NOTE | 2016-11-24 17:43 | Progress Note ---
Internal Med Progress Note Date of Service: Nov 23, 2016. Provider Documentation: late entry pt seen on 11/23/16 at approx 5 pm SUBJECTIVE: no fever or chills minimum pain on left knee at wound vac site appetite fair OBJECTIVE: Vital Signs-as noted below Exam: General-chronically ill appearing Eyes-sclera non icteric ENT-NAD Neck-no JVD Lungs-CTA. no wheeze or rales Heart-regular S1/S2 Abdomen-soft, non tender Extremities-s/p Rt BKA , bandage present on stump , left knee wound vac presented with continued drainage of serosanguineous fluid left foot warm , normal capillary refill Neuro-no focal neurological deficit, AAO x3 Lab data as noted below. ASSESSMENT & PLAN: SEPSIS with SEPTIC ARTHRITIS LEFT KNEE MRSA BACTEREMIA s/p I&D and removal of implants with insertion of antibiotic spacer on 11/14 POD # 9 on wound vac Synovial fluid culture MRSA Blood culture -staph aureus /MRSA recent blood cultures on 11/14/16 - no growth to date appreciate ID eval Recommend to Continue daptomycin for 6 weeks will need weekly CBC ,CMP , ESR , CPK check while on daptomycin . Will need continued ID follow up on discharge Continue Wound Vac -will need follow up at Wound Center after discharge ECHO : no valvular vegetation noted PICC line placed will need arrangements for IV Daptomycin at SNF for 6 weeks ATRIAL FIBRILLATION cont on Beta jodie DM2 -hold glipizide -can be resumed on discharge -insulin coverage -glycemic pharmacy consulted ACUTE BLOOD LOSS ANEMIA - s/p 4 units PRBCs -s/p transfused 4units PRBC's -Hgb stable HTN cont. b-jodie PRESSURE ULCERS Pressure ulcer of right medial buttock, stage 2, POA and Pressure ulcer of medial sacrum, stage 2, not POA -- Wound care consulted H/O DVT -S/P IVC filter DVT PROPHYLAXIS: aspirin BID per Ortho DISPOSITION ; per Ortho will need SNF for continued PT/wound care /IV Abx Vital Signs: Date Time Temp Pulse Resp B/P Pulse Ox O2 Delivery O2 Flow Rate FiO2 11/24/16 16:00 Room Air 11/24/16 15:20 36.6 84 16 116/81 95 Room Air 11/24/16 09:50 87 132/85 93 Room Air 11/24/16 08:07 92 Room Air 11/24/16 07:45 Room Air 11/24/16 07:17 37.4 90 19 164/86 91 Room Air 11/23/16 22:50 37.4 93 16 143/81 93 Room Air 11/23/16 20:34 104 93 Room Air 11/23/16 20:31 58 144/71 11/23/16 19:05 Room Air Lab Results: Results Past 24 Hours Test 11/23/16 20:21 11/24/16 05:20 11/24/16 08:17 11/24/16 12:21 Range/Units Bedside Glucose 186 189 213 70-90 mg/dl White Blood Count 10.19 4.8-10.8 K/uL Red Blood Count 3.01 4.2-5.4 M/uL Hemoglobin 8.9 12.0-16.0 g/dL Hematocrit 26.9 37-47 % Mean Corpuscular Volume 89.4 80-100 fL Mean Corpuscular Hemoglobin 29.6 25-34 pg Mean Corpuscular Hemoglobin Concent 33.1 32-36 g/dl RDW Standard Deviation 50.2 36.4-46.3 fL RDW Coefficient of Variation 15.4 11.5-14.5 % Platelet Count 886 130-400 K/uL Mean Platelet Volume 8.4 7.4-10.4 fL Sodium Level 137 136-145 mmol/L Potassium Level 3.6 3.5-5.1 mmol/L Chloride Level 97 98-107 mmol/L Carbon Dioxide Level 33 21-32 mmol/L Anion Gap 7.0 3-11 mmol/L Blood Urea Nitrogen 9 7-18 mg/dl Creatinine 0.48 0.60-1.20 mg/dl Est Creatinine Clear Calc Drug Dose 127.2 ml/min Estimated GFR () 117.6 Estimated GFR (Non- 101.5 BUN/Creatinine Ratio 17.9 10-20 Random Glucose 170 70-99 mg/dl Calcium Level 7.7 8.5-10.1 mg/dl Test 11/24/16 17:02 Range/Units Bedside Glucose 181 70-90 mg/dl
[2016-11-24] MEDS ORDERED: SODIUM CHLORIDE 0.9% 1000ML 1,000 ML IV ONE (17:45)
[2016-11-24] MEDS ORDERED: FRRG PO (17:46)
[2016-11-24] MEDS ORDERED: CBCI IV (17:46)
[2016-11-24] MEDS ORDERED: RXC5 PO (17:46)
[2016-11-24] MEDS ORDERED: ULT50X PO (17:46)
[2016-11-24] MEDS ORDERED: ASPEC81 PO (17:46)
--- NOTE | 2016-11-24 17:52 | Progress Note ---
Internal Med Progress Note Date of Service: Nov 24, 2016. Provider Documentation: SUBJECTIVE: noted to have low urine out put last night and this AM pt denies of any discomfort mentions does not like to drink much fluid , appetite is still poor no fever or chills Wound vac changed to day from irrigation setting to traditional wound vac mode pt mentions improvement of pain /discomfort at wound vac suction site OBJECTIVE: Vital Signs-as noted below Exam: General-chronically ill appearing Eyes-sclera non icteric ENT-NAD Neck-no JVD Lungs-CTA. no wheeze or rales Heart-regular S1/S2 Abdomen-soft, non tender Extremities-s/p Rt BKA , bandage present on stump , left knee wound vac present left foot warm , normal capillary refill Neuro-no focal neurological deficit, AAO x3 Lab data as noted below. ASSESSMENT & PLAN: SEPSIS with SEPTIC ARTHRITIS LEFT KNEE MRSA BACTEREMIA s/p I&D and removal of implants with insertion of antibiotic spacer on 11/14 POD # 10 on wound vac -changed today by Dr Ma form continuous irrigation mode to traditional wound vac setting w will need continued follow up at wound care clinic for wound care and wound vac management Synovial fluid culture growth MRSA Blood culture -staph aureus /MRSA recent blood cultures on 11/14/16 - no growth to date appreciate ID eval Recommend to Continue daptomycin for 6 weeks will need weekly CBC ,CMP , ESR , CPK check while on daptomycin . Will need continued ID follow up on discharge ECHO : no valvular vegetation noted PICC line placed will need arrangements for IV Daptomycin at SNF for 6 weeks LOW URINE OUT PUT : renal function remains stable pt noted to have poor PO intake gentle hydration NSS @ 80 ml x 1 liter follow urine out put , renal function ATRIAL FIBRILLATION cont on Beta jodie DM2 -hold glipizide -can be resumed on discharge -insulin coverage -glycemic pharmacy consulted ACUTE BLOOD LOSS ANEMIA - s/p 4 units PRBCs -s/p transfused 4units PRBC's -Hgb stable HTN cont. b-jodie PRESSURE ULCERS Pressure ulcer of right medial buttock, stage 2, POA and Pressure ulcer of medial sacrum, stage 2, not POA -- Wound care consulted H/O DVT -S/P IVC filter DVT PROPHYLAXIS: aspirin BID per Ortho DISPOSITION ; per Ortho will need SNF for continued PT/wound care /IV Abx Vital Signs: Date Time Temp Pulse Resp B/P Pulse Ox O2 Delivery O2 Flow Rate FiO2 11/24/16 16:00 Room Air 11/24/16 15:20 36.6 84 16 116/81 95 Room Air 11/24/16 09:50 87 132/85 93 Room Air 11/24/16 08:07 92 Room Air 11/24/16 07:45 Room Air 11/24/16 07:17 37.4 90 19 164/86 91 Room Air 11/23/16 22:50 37.4 93 16 143/81 93 Room Air 11/23/16 20:34 104 93 Room Air 11/23/16 20:31 58 144/71 11/23/16 19:05 Room Air Lab Results: Results Past 24 Hours Test 11/23/16 20:21 11/24/16 05:20 11/24/16 08:17 11/24/16 12:21 Range/Units Bedside Glucose 186 189 213 70-90 mg/dl White Blood Count 10.19 4.8-10.8 K/uL Red Blood Count 3.01 4.2-5.4 M/uL Hemoglobin 8.9 12.0-16.0 g/dL Hematocrit 26.9 37-47 % Mean Corpuscular Volume 89.4 80-100 fL Mean Corpuscular Hemoglobin 29.6 25-34 pg Mean Corpuscular Hemoglobin Concent 33.1 32-36 g/dl RDW Standard Deviation 50.2 36.4-46.3 fL RDW Coefficient of Variation 15.4 11.5-14.5 % Platelet Count 886 130-400 K/uL Mean Platelet Volume 8.4 7.4-10.4 fL Sodium Level 137 136-145 mmol/L Potassium Level 3.6 3.5-5.1 mmol/L Chloride Level 97 98-107 mmol/L Carbon Dioxide Level 33 21-32 mmol/L Anion Gap 7.0 3-11 mmol/L Blood Urea Nitrogen 9 7-18 mg/dl Creatinine 0.48 0.60-1.20 mg/dl Est Creatinine Clear Calc Drug Dose 127.2 ml/min Estimated GFR () 117.6 Estimated GFR (Non- 101.5 BUN/Creatinine Ratio 17.9 10-20 Random Glucose 170 70-99 mg/dl Calcium Level 7.7 8.5-10.1 mg/dl Test 11/24/16 17:02 Range/Units Bedside Glucose 181 70-90 mg/dl
[2016-11-24 21:34] VITALS: BP 118/70; PULSE 92
[2016-11-24] MEDS: SENNA 8.6 MG TAB PO SCH (21:35)
[2016-11-24] MEDS ORDERED: NURSING VERBAL MED ORDER ONE (23:00)
[2016-11-24 23:04] VITALS: BP 130/72; PULSE 86; TEMP 37; O2SAT 94
[2016-11-25] MEDS ORDERED: INSULIN ASPART 100 UNITS/ML 3 ML PEN SC SCH (02:00)
[2016-11-25] MEDS: MAGNESIUM HYDROXIDE SUSP 30 ML UDC PO PRN (05:39)
[2016-11-25] MEDS: SODIUM CHLORIDE 0.9% 1000ML 1,000 ML IV SCH ×2 (05:39→11:27)
[2016-11-25] MEDS: OXYCODONE HCL IR 5 MG TAB (IMMEDIATE RELEASE) PO PRN ×3 (05:39→19:59)
[2016-11-25 06:43] LABS: CALCIUM 7.9 mg/dl (8.5-10.1); CREATININE 0.5 mg/dl (0.60-1.20); POTASSIUM 3.9 mmol/L (3.5-5.1)
[2016-11-25 07:19] VITALS: BP 145/81; PULSE 77; TEMP 37; O2SAT 94
[2016-11-25] MEDS: FERROUS GLUCONATE 324 MG TAB PO SCH ×3 (09:17→18:09)
[2016-11-25] MEDS: INSULIN GLARGINE SOLOSTAR 100 UNITS/ML 3 ML PEN SC SCH (09:19)
[2016-11-25] MEDS: INSULIN ASPART 100 UNITS/ML 3 ML PEN SC SCH ×4 (09:20→20:02)
[2016-11-25] MEDS: ASPIRIN 81 MG ECTAB PO SCH ×2 (09:21→20:12)
[2016-11-25] MEDS: DOCUSATE SODIUM 100 MG CAP PO SCH ×2 (09:21→20:03)
[2016-11-25] MEDS: PANTOprazole SOD 40 MG TAB PO SCH (09:22)
[2016-11-25] MEDS: METOPROLOL TARTRATE 25 MG TAB PO SCH ×2 (09:22→20:12)
[2016-11-25] MEDS: MULTIVITAMIN TAB PO SCH (09:23)
--- NOTE | 2016-11-25 12:32 | Orthopedic Progress Note ---
Orthopedic Progress Note Date of Service Nov 25, 2016. Subjective Post OP Day: 11 Reports: feeling well, pain controlled w PO medications, Denies: SOB, chest pain , complaints, light headedness, nausea / vomiting Objective calves soft nontender (left leg), dressing C/D/I (wound vac left knee), A&O x3, toes mobile A&O x3, toes mobile, able to wiggle toes, ankle pumps, sensation intact throughout left lower extremity Date Time Temp Pulse Resp B/P Pulse Ox O2 Delivery O2 Flow Rate FiO2 11/25/16 07:19 37.0 77 20 145/81 94 Room Air 11/25/16 07:15 Room Air 11/24/16 23:45 Room Air 11/24/16 23:04 37.0 86 16 130/72 94 Room Air 11/24/16 21:34 92 118/70 11/24/16 16:00 Room Air 11/24/16 15:20 36.6 84 16 116/81 95 Room Air Assessment & Plan Assessment: SEPTIC ARTHRITIS LEFT TOTAL KNEE ARTHROPLASTY -POD #11 s/p I&D, removal total knee implant, placement of antibiotic spacer and prevena wound vac, had irrigational wound, was changed to Left knee traditional wound vac. -ID Consult, currently on Daptomycin. -most recent blood cultures, final results no growth. -awaiting placement, SS to discuss with ID alternatives to Daptomycin UTI -urine culture with Citrobacter ATRIAL FIBRILLATION DM2 -glycemic pharmacy consulted ACUTE BLOOD LOSS ANEMIA -transfused 4 units PRBC's during this admission -S/P IVC filter Plan: will need continued Daptomycin (or alternative) for at least 6 weeks, PICC placed. will need follow up with ID upon discharge, as well as f/u at wound center. will need weekly CBC, CMP, ESR, CPK during dapto therapy. likely discharge to SNF when stable. (1) Infection of total left knee replacement (2) MRSA (methicillin resistant Staphylococcus aureus) septicemia (3) Leukocytosis Discharge Planning Discharge Planning: half-way facility (Hopefully SNF if wound vac changed to traditional vac tomorrow. Will need IV dapto 6 weeks. )
[2016-11-25] MEDS: DAPTOmycin IV 600 MG in SODIUM CHLORIDE 0.9% 50ML 50 ML IV SCH (14:21)
[2016-11-25 14:56] VITALS: BP 123/75; PULSE 79; TEMP 37; O2SAT 97
--- NOTE | 2016-11-25 17:41 | Progress Note ---
Internal Med Progress Note Date of Service: Nov 25, 2016. Provider Documentation: SUBJECTIVE: feels the same , no new pain or discomfort afebrile reports of low urine out put on Cheng IVF continued pt is encouraged to drink plenty of fluid OBJECTIVE: Vital Signs-as noted below Exam: General-chronically ill appearing Eyes-sclera non icteric ENT-NAD Neck-no JVD Lungs-CTA. no wheeze or rales Heart-regular S1/S2 Abdomen-soft, non tender Extremities-s/p Rt BKA , bandage present on stump , left knee wound vac present left foot warm , normal capillary refill Neuro-no focal neurological deficit, AAO x3 Lab data as noted below. ASSESSMENT & PLAN: SEPSIS with SEPTIC ARTHRITIS LEFT KNEE MRSA BACTEREMIA s/p I&D and removal of implants with insertion of antibiotic spacer on 11/14 POD # 10 on wound vac -changed today by Dr Ma form continuous irrigation mode to traditional wound vac setting w will need continued follow up at wound care clinic for wound care and wound vac management Synovial fluid culture growth MRSA Blood culture -staph aureus /MRSA recent blood cultures on 11/14/16 - no growth to date appreciate ID eval Recommend to Continue daptomycin for 6 weeks will need weekly CBC ,CMP , ESR , CPK check while on daptomycin . Will need continued ID follow up on discharge ECHO : no valvular vegetation noted PICC line placed will need arrangements for IV Daptomycin at SNF for 6 weeks updated by CM placement in SNF is difficult as IV Daptomycin being very expensive will D/w ID regarding option for changing Abx to cheaper option LOW URINE OUT PUT : renal function remains stable pt noted to have poor PO intake cont hydration NSS @ 80 ml , renal function remains stable ATRIAL FIBRILLATION cont on Beta jodie DM2 -hold glipizide -can be resumed on discharge -insulin coverage -glycemic pharmacy consulted ACUTE BLOOD LOSS ANEMIA - s/p 4 units PRBCs -s/p transfused 4units PRBC's -Hgb stable HTN cont. b-jodie PRESSURE ULCERS Pressure ulcer of right medial buttock, stage 2, POA and Pressure ulcer of medial sacrum, stage 2, not POA -- Wound care consulted H/O DVT -S/P IVC filter DVT PROPHYLAXIS: aspirin BID per Ortho DISPOSITION ; per Ortho will need SNF for continued PT/wound care /IV Abx Awaiting acceptance Vital Signs: Date Time Temp Pulse Resp B/P Pulse Ox O2 Delivery O2 Flow Rate FiO2 11/26/16 07:59 Room Air 11/26/16 07:47 37.2 78 18 150/79 94 Room Air 11/26/16 00:05 Room Air 11/25/16 23:37 37.0 78 16 131/82 94 Room Air 11/25/16 17:45 Room Air 11/25/16 14:56 37.0 79 17 123/75 97 Room Air Lab Results: Results Past 24 Hours Test 11/25/16 11:58 11/25/16 17:09 11/25/16 20:00 11/26/16 05:25 Range/Units Bedside Glucose 186 133 138 70-90 mg/dl Sodium Level 137 136-145 mmol/L Potassium Level 3.8 3.5-5.1 mmol/L Chloride Level 100 98-107 mmol/L Carbon Dioxide Level 30 21-32 mmol/L Anion Gap 7.0 3-11 mmol/L Blood Urea Nitrogen 8 7-18 mg/dl Creatinine 0.38 0.60-1.20 mg/dl Est Creatinine Clear Calc Drug Dose 160.7 ml/min Estimated GFR () 127.0 Estimated GFR (Non- 109.6 BUN/Creatinine Ratio 20.2 10-20 Random Glucose 122 70-99 mg/dl Calcium Level 7.5 8.5-10.1 mg/dl Test 11/26/16 08:12 Range/Units Bedside Glucose 150 70-90 mg/dl
[2016-11-25] MEDS: SENNA 8.6 MG TAB PO SCH (20:03)
[2016-11-25 23:37] VITALS: BP 131/82; PULSE 78; TEMP 37; O2SAT 94
[2016-11-26] MEDS: SODIUM CHLORIDE 0.9% 1000ML 1,000 ML IV SCH ×2 (00:10→13:03)
[2016-11-26] MEDS: OXYCODONE HCL IR 5 MG TAB (IMMEDIATE RELEASE) PO PRN (06:28)
[2016-11-26 06:43] LABS: CREATININE 0.38 mg/dl (0.60-1.20)
[2016-11-26 06:44] LABS: BUN/CREATININE RATIO 20.2 (10-20); CALCIUM 7.5 mg/dl (8.5-10.1); POTASSIUM 3.8 mmol/L (3.5-5.1)
[2016-11-26 07:47] VITALS: BP 150/79; PULSE 78; TEMP 37.2; O2SAT 94
[2016-11-26] MEDS: FERROUS GLUCONATE 324 MG TAB PO SCH ×3 (08:46→18:25)
[2016-11-26] MEDS: DOCUSATE SODIUM 100 MG CAP PO SCH ×2 (08:46→21:51)
[2016-11-26] MEDS: MULTIVITAMIN TAB PO SCH (08:46)
[2016-11-26] MEDS: PANTOprazole SOD 40 MG TAB PO SCH (08:46)
[2016-11-26] MEDS: ASPIRIN 81 MG ECTAB PO SCH ×2 (08:46→21:59)
[2016-11-26] MEDS: METOPROLOL TARTRATE 25 MG TAB PO SCH ×2 (08:46→22:00)
[2016-11-26] MEDS: INSULIN ASPART 100 UNITS/ML 3 ML PEN SC SCH ×4 (08:51→21:00)
[2016-11-26] MEDS: INSULIN GLARGINE SOLOSTAR 100 UNITS/ML 3 ML PEN SC SCH (08:52)
[2016-11-26] MEDS: TRAMADOL HCL 50 MG TAB PO PRN ×2 (08:54→18:24)
[2016-11-26] MEDS: ONDANSETRON INJ 2 MG/ML 2 ML VIAL IV PRN (13:09)
--- NOTE | 2016-11-26 14:04 | Orthopedic Progress Note ---
Orthopedic Progress Note Date of Service Nov 26, 2016. Subjective Post OP Day: 12 Reports: feeling well, pain controlled w PO medications, Denies: SOB, calf pain , chest pain, light headedness Additional Notes: having nausea after eating today, slight improvement over the past 30 minutes Objective calves soft nontender (left leg), dressing C/D/I (wound vac over incision), A&O x3, toes mobile able to wiggle toes, ankle pumps, sensation intact left lower extremity Date Time Temp Pulse Resp B/P Pulse Ox O2 Delivery O2 Flow Rate FiO2 11/26/16 07:59 Room Air 11/26/16 07:47 37.2 78 18 150/79 94 Room Air 11/26/16 00:05 Room Air 11/25/16 23:37 37.0 78 16 131/82 94 Room Air 11/25/16 17:45 Room Air 11/25/16 14:56 37.0 79 17 123/75 97 Room Air Assessment & Plan Assessment: SEPTIC ARTHRITIS LEFT TOTAL KNEE ARTHROPLASTY -POD #12 s/p I&D, removal total knee implant, placement of antibiotic spacer , had irrigational wound, was changed to Left knee traditional wound vac. -ID Consult, currently on Daptomycin. -most recent blood cultures, final results no growth. -awaiting placement, SS to discuss with ID alternatives to Daptomycin UTI -urine culture with Citrobacter ATRIAL FIBRILLATION DM2 -glycemic pharmacy consulted ACUTE BLOOD LOSS ANEMIA -transfused 4 units PRBC's during this admission -S/P IVC filter Plan: will need continued Daptomycin (or alternative) for at least 6 weeks, PICC placed. will need follow up with ID upon discharge, as well as f/u at wound center. will need weekly CBC, CMP, ESR, CPK during dapto therapy. likely discharge to SNF when stable. will need f/u with wound care clinic for wound care and wound vac change (1) Infection of total left knee replacement (2) MRSA (methicillin resistant Staphylococcus aureus) septicemia (3) Leukocytosis Discharge Planning Discharge Planning: longterm facility (Hopefully SNF if wound vac changed to traditional vac tomorrow. Will need IV dapto 6 weeks. )
[2016-11-26] MEDS: DAPTOmycin IV 600 MG in SODIUM CHLORIDE 0.9% 50ML 50 ML IV SCH (14:11)
--- NOTE | 2016-11-26 14:11 | Pharmacy Progress Note ---
Glycemic: Assessment & Plan Date of Service Nov 26, 2016. Assessment & Plan The patient is currently receiving ~30 units of insulin per day. BSGs ranging 122 - 186 mg/dl over the past 24hrs. * Basal insulin: Lantus 13 units every 24 hours in the morning * Correctional Insulin: Novolog Correction per scale ACHS Goal Range: Low 110 mg/dL - High 140 mg/dL Correction Factor: 25 mg/dL/unit * Prandial insulin: Per carb ratio of 1 unit per 8 grams CHO consumed BSGs continue to improve, no changes needed to inpatient regimen at this time. Pharmacy will continue to monitor patient daily and write orders per [facility] inpatient glycemic control protocol. Thanks. * Please note that the plan above was derived based on current level of insulin resistance and hospital stress. These recommendations are appropriate for inpatient admission only. Plan of care upon discharge will need to be reassessed to avoid potential outpatient hypo/hyperglycemia.
[2016-11-26 15:55] VITALS: BP 151/76; PULSE 81; TEMP 37.1; O2SAT 93
--- NOTE | 2016-11-26 18:21 | DIAGNOSTIC IMAGING REPORT ---
Venous Doppler left leg LEFT VENOUS DOPP LOWER EXT UNILAT CLINICAL HISTORY: C/O LEFT CALF PAIN pain. Edema. TECHNIQUE: Venous Doppler COMPARISON STUDY: 10/20/2016 FINDINGS: Extensive deep venous thrombosis. Visible progressive compared to the prior study. On the left there is involvement of the femoral vein, bulk of the calf veins, as well as posterior tibial material, and peroneal veins. IMPRESSION: Acute deep venous thrombosis progressive from the prior study of 10/20/2016 Electronically signed by: Anam Crenshaw M.D. 11/26/2016 6:19 PM Dictated Date/Time: 11/26/2016 6:18 PM
--- NOTE | 2016-11-26 20:21 | Progress Note ---
Internal Med Progress Note Date of Service: Nov 26, 2016. Provider Documentation: SUBJECTIVE: feels the same , no new pain or discomfort afebrile reports of low urine out put on Cheng IVF continued pt is encouraged to drink plenty of fluid OBJECTIVE: Vital Signs-as noted below Exam: General-chronically ill appearing Eyes-sclera non icteric ENT-NAD Neck-no JVD Lungs-CTA. no wheeze or rales Heart-regular S1/S2 Abdomen-soft, non tender Extremities-s/p Rt BKA , bandage present on stump , left knee wound vac present left foot warm , normal capillary refill Neuro-no focal neurological deficit, AAO x3 Lab data as noted below. ASSESSMENT & PLAN: SEPSIS with SEPTIC ARTHRITIS LEFT KNEE MRSA BACTEREMIA s/p I&D and removal of implants with insertion of antibiotic spacer on 11/14 POD # 12 on wound vac -changed today by Dr Ma form continuous irrigation mode to traditional wound vac setting w will need continued follow up at wound care clinic for wound care and wound vac management Synovial fluid culture growth MRSA Blood culture -staph aureus /MRSA recent blood cultures on 11/14/16 - no growth to date appreciate ID eval Recommend to Continue daptomycin for 6 weeks will need weekly CBC ,CMP , ESR , CPK check while on daptomycin . Will need continued ID follow up on discharge ECHO : no valvular vegetation noted PICC line placed will need arrangements for IV Daptomycin at SNF for 6 weeks updated by CM placement in SNF is difficult as IV Daptomycin being very expensive pt is allergic to Vancomycin will D/w ID regarding option for changing Abx to cheaper option LOW URINE OUT PUT : renal function remains stable pt noted to have poor PO intake cont hydration NSS @ 80 ml , renal function remains stable ATRIAL FIBRILLATION cont on Beta jodie DM2 -hold glipizide -can be resumed on discharge -insulin coverage -glycemic pharmacy consulted ACUTE BLOOD LOSS ANEMIA - s/p 4 units PRBCs -s/p transfused 4units PRBC's -Hgb stable HTN cont. b-jodie PRESSURE ULCERS Pressure ulcer of right medial buttock, stage 2, POA and Pressure ulcer of medial sacrum, stage 2, not POA -- Wound care consulted H/O DVT -S/P IVC filter DVT PROPHYLAXIS: aspirin BID per Ortho DISPOSITION ; per Ortho will need SNF for continued PT/wound care /IV Abx Awaiting acceptance Vital Signs: Date Time Temp Pulse Resp B/P Pulse Ox O2 Delivery O2 Flow Rate FiO2 11/26/16 15:55 37.1 81 16 151/76 93 Room Air 11/26/16 07:59 Room Air 11/26/16 07:47 37.2 78 18 150/79 94 Room Air 11/26/16 00:05 Room Air 11/25/16 23:37 37.0 78 16 131/82 94 Room Air Lab Results: Results Past 24 Hours Test 11/26/16 05:25 11/26/16 08:12 11/26/16 12:13 11/26/16 17:28 Range/Units Sodium Level 137 136-145 mmol/L Potassium Level 3.8 3.5-5.1 mmol/L Chloride Level 100 98-107 mmol/L Carbon Dioxide Level 30 21-32 mmol/L Anion Gap 7.0 3-11 mmol/L Blood Urea Nitrogen 8 7-18 mg/dl Creatinine 0.38 0.60-1.20 mg/dl Est Creatinine Clear Calc Drug Dose 160.7 ml/min Estimated GFR () 127.0 Estimated GFR (Non- 109.6 BUN/Creatinine Ratio 20.2 10-20 Random Glucose 122 70-99 mg/dl Calcium Level 7.5 8.5-10.1 mg/dl Bedside Glucose 150 138 111 70-90 mg/dl
[2016-11-26 21:50] VITALS: BP 165/90; PULSE 82
[2016-11-26] MEDS: SENNA 8.6 MG TAB PO SCH (21:51)
[2016-11-26 23:20] VITALS: BP 170/100; PULSE 77; TEMP 37; O2SAT 97
[2016-11-27] MEDS: SODIUM CHLORIDE 0.9% 1000ML 1,000 ML IV SCH ×2 (00:08→13:04)
[2016-11-27 00:15] VITALS: BP 160/85
[2016-11-27 03:25] VITALS: BP 149/83
[2016-11-27] MEDS: OXYCODONE HCL IR 5 MG TAB (IMMEDIATE RELEASE) PO PRN ×3 (04:12→16:38)
[2016-11-27 06:41] LABS: BUN/CREATININE RATIO 13.5 (10-20); CALCIUM 7.6 mg/dl (8.5-10.1); CREATININE 0.39 mg/dl (0.60-1.20); POTASSIUM 3.8 mmol/L (3.5-5.1)
[2016-11-27 07:33] VITALS: BP 152/82; PULSE 71; TEMP 37.2; O2SAT 97
[2016-11-27] MEDS: FERROUS GLUCONATE 324 MG TAB PO SCH ×3 (08:30→17:45)
[2016-11-27] MEDS: PANTOprazole SOD 40 MG TAB PO SCH (09:05)
[2016-11-27] MEDS: ASPIRIN 81 MG ECTAB PO SCH (09:05)
[2016-11-27] MEDS: MULTIVITAMIN TAB PO SCH (09:06)
[2016-11-27] MEDS: DOCUSATE SODIUM 100 MG CAP PO SCH ×2 (09:06→20:23)
[2016-11-27] MEDS: METOPROLOL TARTRATE 25 MG TAB PO SCH ×2 (09:06→20:23)
[2016-11-27] MEDS: INSULIN ASPART 100 UNITS/ML 3 ML PEN SC SCH ×4 (09:13→21:33)
[2016-11-27] MEDS: INSULIN GLARGINE SOLOSTAR 100 UNITS/ML 3 ML PEN SC SCH (09:14)
[2016-11-27] MEDS: TRAMADOL HCL 50 MG TAB PO PRN ×2 (13:05→20:18)
--- NOTE | 2016-11-27 13:36 | Progress Note ---
Progress Note Date of Service Nov 27, 2016. Progress Note ATTENDING NOTE : spoke with ID -regarding option for changing Antibiotic form Daptomycin to different agent there is not much option remains pt is allergic to Vancomycin with severe MRSA sepsis , septic knee -still on a process of healing -no other agent will be appropriate CM aware , ID spoke with case management assistant already
[2016-11-27] MEDS: DAPTOmycin IV 600 MG in SODIUM CHLORIDE 0.9% 50ML 50 ML IV SCH (13:56)
--- NOTE | 2016-11-27 15:58 | Orthopedic Progress Note ---
Orthopedic Progress Note Date of Service Nov 27, 2016. Subjective Additional Notes: Pt resting comfortably in bed, no complaints Objective N/V intact, dressing C/D/I (Wound vac in place), toes mobile Right BKA dressing intact Date Time Temp Pulse Resp B/P Pulse Ox O2 Delivery O2 Flow Rate FiO2 11/27/16 08:30 Room Air 11/27/16 07:33 37.2 71 18 152/82 97 Room Air 11/27/16 03:25 149/83 11/27/16 00:15 Room Air 11/27/16 00:15 160/85 11/26/16 23:20 37.0 77 18 170/100 97 Room Air 11/26/16 21:50 82 165/90 11/26/16 17:15 Room Air Assessment & Plan Assessment: SEPTIC ARTHRITIS LEFT TOTAL KNEE ARTHROPLASTY -POD #13 s/p I&D, removal total knee implant, placement of antibiotic spacer , had irrigational wound, was changed to Left knee traditional wound vac. -ID Consult, currently on Daptomycin. -most recent blood cultures, final results no growth. -awaiting placement, SS to discuss with ID alternatives to Daptomycin UTI -urine culture with Citrobacter ATRIAL FIBRILLATION DM2 -glycemic pharmacy consulted ACUTE BLOOD LOSS ANEMIA -transfused 4 units PRBC's during this admission -S/P IVC filter Plan: will need continued Daptomycin (or alternative) for at least 6 weeks, PICC placed. will need follow up with ID upon discharge, as well as f/u at wound center. will need weekly CBC, CMP, ESR, CPK during dapto therapy. likely discharge to SNF when stable. will need f/u with wound care clinic for wound care and wound vac change (1) Infection of total left knee replacement (2) MRSA (methicillin resistant Staphylococcus aureus) septicemia (3) Leukocytosis Inhouse Planning Pain Management: Ultram, Oxy IR DVT Prophylaxis: TEDs, SCDs, ASA, other (IVC Filter) Discharge Planning Discharge Planning: custodial facility (Hopefully SNF if wound vac changed to traditional vac tomorrow. Will need IV dapto 6 weeks. )
[2016-11-27 16:27] VITALS: BP 153/82; PULSE 74; TEMP 36.6; O2SAT 95
--- NOTE | 2016-11-27 17:39 | Progress Note ---
Internal Med Progress Note Date of Service: Nov 27, 2016. Provider Documentation: SUBJECTIVE: complains of left leg and calf pain no fever or chills nausea has improved today no chest pain or SOB OBJECTIVE: Vital Signs-as noted below Exam: General-chronically ill appearing Eyes-sclera non icteric ENT-NAD Neck-no JVD Lungs-CTA. no wheeze or rales Heart-regular S1/S2 Abdomen-soft, non tender Extremities-s/p Rt BKA , bandage present on stump , left knee wound vac present left foot warm , normal capillary refill Neuro-no focal neurological deficit, AAO x3 Lab data as noted below. ASSESSMENT & PLAN: SEPSIS with SEPTIC ARTHRITIS LEFT KNEE MRSA BACTEREMIA s/p I&D and removal of implants with insertion of antibiotic spacer on 11/14 POD # 12 on wound vac -changed today by Dr Ma form continuous irrigation mode to traditional wound vac setting w will need continued follow up at wound care clinic for wound care and wound vac management Synovial fluid culture growth MRSA Blood culture -staph aureus /MRSA recent blood cultures on 11/14/16 - no growth to date appreciate ID eval Recommend to Continue daptomycin for 6 weeks will need weekly CBC ,CMP , ESR , CPK check while on daptomycin . Will need continued ID follow up on discharge ECHO : no valvular vegetation noted PICC line placed will need arrangements for IV Daptomycin at SNF for 6 weeks updated by CM placement in SNF is difficult as IV Daptomycin being very expensive pt is allergic to Vancomycin D/w ID no effective option is available to adequately treat MRSA Sepsis / septic knee Case management updated LOW URINE OUT PUT : improved D/c IVF LEFT LOWER EXT DVT : USG of left lower ext : IMPRESSION: Acute deep venous thrombosis progressive from the prior study of 10/20/2016 pt already has IVC filter placed D/w Dr Hogan Vascular surgery -no other vascular intervention can be done as IVC filter is present already recommend to treat pt with therapeutic anticoagulation -if OK with Ortho team Case D/w Ortho pt was on Aspirin 81 mg PO BID for DVT prophylaxis -not effective -as progression of DVT seen in L lower ext USG Ok start pt on Coumadin ( pt is almost 2 weeks post op ) given chronic anemia , and required 4 units PRBC transfusion high risk for bleeding complication will avoid bridge therapy Coumadin low dose 2 mg daily , follow PT /INR goal to keep INR between 2-2.5 D/C Aspirin ATRIAL FIBRILLATION cont on Beta jodie DM2 -hold glipizide -can be resumed on discharge -insulin coverage -glycemic pharmacy consulted ACUTE BLOOD LOSS ANEMIA - s/p 4 units PRBCs -s/p transfused 4units PRBC's -Hgb stable follow CBC daily as pt is started on Coumadni HTN cont. b-jodie PRESSURE ULCERS Pressure ulcer of right medial buttock, stage 2, POA and Pressure ulcer of medial sacrum, stage 2, not POA -- Wound care consulted DVT PROPHYLAXIS: aspirin BID per Ortho DISPOSITION ; per Ortho will need SNF for continued PT/wound care /IV Abx Awaiting acceptance Vital Signs: Date Time Temp Pulse Resp B/P Pulse Ox O2 Delivery O2 Flow Rate FiO2 11/27/16 23:25 36.7 67 16 162/85 97 Room Air 11/27/16 20:16 73 144/81 11/27/16 20:10 Room Air 11/27/16 16:27 36.6 74 16 153/82 95 Room Air 11/27/16 15:30 Room Air 11/27/16 08:30 Room Air 11/27/16 07:33 37.2 71 18 152/82 97 Room Air 11/27/16 03:25 149/83 Lab Results: Results Past 24 Hours Test 11/27/16 05:32 11/27/16 08:19 11/27/16 12:06 11/27/16 17:05 Range/Units Sodium Level 135 136-145 mmol/L Potassium Level 3.8 3.5-5.1 mmol/L Chloride Level 99 98-107 mmol/L Carbon Dioxide Level 30 21-32 mmol/L Anion Gap 6.0 3-11 mmol/L Blood Urea Nitrogen 5 7-18 mg/dl Creatinine 0.39 0.60-1.20 mg/dl Est Creatinine Clear Calc Drug Dose 156.5 ml/min Estimated GFR () 126.0 Estimated GFR (Non- 108.7 BUN/Creatinine Ratio 13.5 10-20 Random Glucose 127 70-99 mg/dl Calcium Level 7.6 8.5-10.1 mg/dl Bedside Glucose 124 138 150 70-90 mg/dl Test 11/27/16 20:58 Range/Units Bedside Glucose 147 70-90 mg/dl
[2016-11-27 20:16] VITALS: BP 144/81; PULSE 73
[2016-11-27] MEDS: SENNA 8.6 MG TAB PO SCH (20:23)
[2016-11-27] MEDS ORDERED: WARFARIN SOD 2 MG TAB PO ONE (20:45)
[2016-11-27 23:25] VITALS: BP 162/85; PULSE 67; TEMP 36.7; O2SAT 97
[2016-11-28 03:40] VITALS: BP 144/71; PULSE 67
[2016-11-28 06:07] LABS: HEMATOCRIT 25.2 % (37-47); MEAN CELL VOLUME 90.6 fL (80-100); MEAN CORPUSCULAR HEMOGLOBIN 29.1 pg (25-34); MEAN CORPUSCULAR HGB CONC 32.1 g/dl (32-36); MEAN PLATELET VOLUME 8.5 fL (7.4-10.4); PLATELET COUNT 811 K/uL (130-400); RED BLOOD COUNT 2.78 M/uL (4.2-5.4)
[2016-11-28 06:23] LABS: INR 1.1 (0.9-1.1); PROTHROMBIN TIME (PATIENT) 11.4 SECONDS (9.0-12.0)
[2016-11-28 06:53] LABS: BUN/CREATININE RATIO 14.5 (10-20); CREATININE 0.42 mg/dl (0.60-1.20); POTASSIUM 4.1 mmol/L (3.5-5.1)
[2016-11-28 07:55] VITALS: BP 171/83; PULSE 78; TEMP 37; O2SAT 91
[2016-11-28] MEDS: FERROUS GLUCONATE 324 MG TAB PO SCH ×3 (08:30→17:45)
[2016-11-28] MEDS: MULTIVITAMIN TAB PO SCH (08:45)
[2016-11-28] MEDS: ONDANSETRON INJ 2 MG/ML 2 ML VIAL IV PRN (08:45)
[2016-11-28] MEDS: DOCUSATE SODIUM 100 MG CAP PO SCH ×2 (08:45→20:53)
[2016-11-28] MEDS: METOPROLOL TARTRATE 25 MG TAB PO SCH ×2 (08:45→20:53)
[2016-11-28] MEDS: OXYCODONE HCL IR 5 MG TAB (IMMEDIATE RELEASE) PO PRN (08:45)
[2016-11-28] MEDS: PANTOprazole SOD 40 MG TAB PO SCH (08:46)
[2016-11-28] MEDS: INSULIN ASPART 100 UNITS/ML 3 ML PEN SC SCH ×4 (08:47→21:06)
[2016-11-28] MEDS: INSULIN GLARGINE SOLOSTAR 100 UNITS/ML 3 ML PEN SC SCH (08:48)
[2016-11-28] MEDS: TRAMADOL HCL 50 MG TAB PO PRN (10:10)
--- NOTE | 2016-11-28 11:17 | Orthopedic Progress Note ---
Orthopedic Progress Note Date of Service Nov 28, 2016. Subjective Additional Notes: Pt lying in bed. Awake, alert. No complaints. Wound care present and removed current wound vac from left knee wound. Discussed case with them. Able to express some serous drainage from the medial aspect of the knee over to the open wound. Dr aM has ordered another wound vac to be placed on the left knee wound. Objective A&O x3 Tenderness in the left calf due to DVT. Distal portion of left knee wound is open approx 5-6cm. Wound with further demarcation. Central portion of would with mild demarcation and drainage. Right BKA dressing C/D/I. Date Time Temp Pulse Resp B/P Pulse Ox O2 Delivery O2 Flow Rate FiO2 11/28/16 08:45 Room Air 11/28/16 07:55 37.0 78 18 171/83 91 Room Air 11/28/16 03:40 67 16 144/71 11/27/16 23:25 36.7 67 16 162/85 97 Room Air 11/27/16 20:16 73 144/81 11/27/16 20:10 Room Air 11/27/16 16:27 36.6 74 16 153/82 95 Room Air 11/27/16 15:30 Room Air Laboratory Results 24 Hours: Test 11/28/16 05:30 Hematocrit 25.2 % Hemoglobin 8.1 g/dL Prothromb Time International Ratio 1.1 Prothrombin Time 11.4 SECONDS Assessment & Plan Assessment: SEPTIC ARTHRITIS LEFT TOTAL KNEE ARTHROPLASTY -POD #14 s/p I&D, removal total knee implant, placement of antibiotic spacer. Wound vac placed on left knee. - Will keep sutures in the left knee for now. Right BKA sutures will remain for total of [address] Car. -ID Consult, currently on Daptomycin. -awaiting placement, SS to discuss with ID alternatives to Daptomycin LLE DVT - Coumadin started : IVC filter placed AFib DM2 HTN Plan: will need continued Daptomycin (or alternative) for at least 6 weeks, PICC placed. will need follow up with ID upon discharge, as well as f/u at wound center. will need weekly CBC, CMP, ESR, CPK during dapto therapy. likely discharge to SNF if they will accept her with Dapto but likely they will not due to high cost of antibx. With current wound situation, new wound vac being placed back on today. Discussed briefly with Dr aCr. If this continues to worsen, she may need an AKA. Dr Ibarra will need to discuss with Dr Ma (1) Infection of total left knee replacement (2) MRSA (methicillin resistant Staphylococcus aureus) septicemia (3) Leukocytosis Inhouse Planning Pain Management: Ultram, PO Tylenol, Oxy IR DVT Prophylaxis: TEDs, SCDs, Coumadin, ASA, other (IVC Filter) Discharge Planning Discharge Planning: nursing home facility (Hopefully SNF if wound vac changed to traditional vac tomorrow. Will need IV dapto 6 weeks. )
[2016-11-28] MEDS: DAPTOmycin IV 600 MG in SODIUM CHLORIDE 0.9% 50ML 50 ML IV SCH (13:35)
--- NOTE | 2016-11-28 14:36 | PROGRESS NOTE ---
DATE: 11/28/2016 DATE: 11/28/2016. SUBJECTIVE: The patient is seen today for reevaluation of a postoperative wound to the left knee in the face of underlying infection. The patient has no specific complaints today. OBJECTIVE: The patient's vital signs were reviewed and found to be unremarkable. The patient is afebrile. The overall size of the wound site has not changed. There is still some present blackened eschar present on the lateral aspect of the wound site. There is some active purulent drainage proximal to this in the suture line. There is no prominent periwound erythema, edema or fluctuance noted. ASSESSMENT: Postoperative wound left knee, in the face of underlying infection. PLAN: At this time, there was some debridement indicated on the lateral border of the wound site. This was performed with scissors and forceps following application of topical Xylocaine 4%. No significant bleeding occurred. The site will continue to be managed with a wound VAC, black foam which will extend up along the incision line, wound VAC changed Thursday, Thursday, Thursday. The patient will be reevaluated as warranted next week during hospitalization or in the outpatient environment. This represented a nonexcisional debridement of less than 20 square cm.
[2016-11-28 15:35] VITALS: BP 138/74; PULSE 77; TEMP 36.6; O2SAT 92
[2016-11-28] MEDS: WARFARIN SOD 2 MG TAB PO SCH (16:54)
[2016-11-28 20:52] VITALS: BP 152/89; PULSE 91
[2016-11-28] MEDS: SENNA 8.6 MG TAB PO SCH (21:02)
--- NOTE | 2016-11-28 21:16 | Progress Note ---
Subjective Date of Service: Nov 28, 2016. Subjective Pt evaluation today including: conversation w/ patient, physical exam, lab review, review of studies, review of inpatient medication list Saw/examined the patient in room 382 She feels better today; PO intake improving Pain controlled No other issues to note Review of Systems Constitutional: No chills, No fever, No weakness Respiratory: No shortness of breath Cardiac: No chest pain Abdomen: No diarrhea, No nausea, No pain, No vomiting Musculoskeletal: + joint pain (pain controlled) Medications Current Inpatient Medications Medications (Trade) Dose Ordered Sig/Denisse Route Start Time Stop Time Status Last Admin Dose Admin Pantoprazole Sodium (Protonix Tab) 40 mg QAM PO 11/14/16 09:00 12/14/16 08:59 11/28/16 08:46 40 MG Acetaminophen (Tylenol Tab) 650 mg Q4H PRN PO 11/13/16 13:00 12/13/16 12:59 11/13/16 23:43 650 MG Docusate Sodium (coLACE CAP) 100 mg BID PO 11/13/16 21:00 12/13/16 20:59 11/28/16 08:45 100 MG Folic Acid (Folvite Tab) 1 mg DAILY PO 11/14/16 09:00 12/14/16 08:59 11/28/16 08:46 1 MG Tramadol HCl 50 mg 50 mg Q4H PRN PO 11/13/16 13:00 12/13/16 12:59 11/28/16 10:10 50 MG Daptomycin/Sodium Chloride (Cubicin IV/Nss 50ml) 62 ml @ 120 mls/hr Q24H IV 11/13/16 14:00 12/25/16 13:59 11/28/16 13:35 120 MLS/HR Glucose (Glucose 40% Gel) 15-30 GRAMS 15 GRAMS... UD PRN PO 11/13/16 14:30 12/13/16 14:29 Glucose (Glucose Chew Tab) 4-8 Tablets 4 Tabl... UD PRN PO 11/13/16 14:30 12/13/16 14:29 Dextrose (Dextrose 50% 50ML Syringe) 25-50ML OF 50% DW IV FOR... UD PRN IV 11/13/16 14:30 12/13/16 14:29 11/16/16 16:36 50 ML Glucagon (Glucagon Inj) 1 mg UD PRN SQ 11/13/16 14:30 12/13/16 14:29 Magnesium Hydroxide (Milk Of Magnesia Susp) 30 ml Q6H PRN PO 11/14/16 11:45 12/14/16 11:44 11/25/16 05:39 30 ML Bisacodyl (Dulcolax Supp) 10 mg DAILY PRN MT 11/14/16 11:45 12/14/16 11:44 Senna (Senokot Tab) 17.2 mg HS PO 11/14/16 21:00 12/14/16 20:59 11/27/16 20:23 17.2 MG Diphenhydramine HCl (Benadryl Inj) 25 mg Q8H PRN IV 11/14/16 11:45 12/14/16 11:44 Al Hydrox/Mg Hydrox/Simethicone (Maalox Max Susp) 15 ml Q4H PRN PO 11/14/16 11:45 12/14/16 11:44 Multivitamins (Multivitamin Tab) 1 tab QAM PO 11/15/16 09:00 12/15/16 08:59 11/28/16 08:45 1 TAB Ondansetron HCl (Zofran Inj) 4 mg Q6H PRN IV 11/14/16 11:45 12/14/16 11:44 11/28/16 08:45 4 MG Ferrous Gluconate (Ferrous Gluconate Tab) 324 mg TIDM PO 11/14/16 12:30 12/14/16 12:29 11/28/16 17:45 324 MG Miscellaneous Information (Consult Glycemic Management Pharmacy) 1 ea UD PRN N/A 11/14/16 21:30 12/14/16 21:29 Heparin Sodium (Porcine) (Heparin 10 Unit/ ml 5 ml Flush) 5 ml PRN PRN FLUSH 11/15/16 01:30 12/15/16 01:29 11/28/16 08:45 5 ML Insulin Aspart (novoLOG ASPART) SLIDING SCALE ACHS SC 11/15/16 16:00 12/15/16 15:59 11/28/16 13:35 7 UNITS Metoprolol Tartrate (Lopressor Tab) 25 mg BID PO 11/15/16 21:00 12/15/16 20:59 11/28/16 08:45 25 MG Miconazole Nitrate (Desenex Powder) 1 appln BID PRN EXT 11/16/16 17:00 12/16/16 16:59 11/21/16 10:09 1 APPLN Insulin Glargine (Lantus Solostar Pen) 13 unit QAM SC 11/25/16 09:00 12/25/16 08:59 11/28/16 08:48 13 UNIT Warfarin Sodium (Coumadin Tab) 2 mg DAILY@16 PO 11/28/16 16:00 12/28/16 15:59 11/28/16 16:54 2 MG Objective Vital Signs Date Time Temp Pulse Resp B/P Pulse Ox O2 Delivery O2 Flow Rate FiO2 11/28/16 20:52 91 152/89 11/28/16 16:00 Room Air 11/28/16 15:35 36.6 77 16 138/74 92 Room Air 11/28/16 08:45 Room Air 11/28/16 07:55 37.0 78 18 171/83 91 Room Air 11/28/16 03:40 67 16 144/71 11/27/16 23:25 36.7 67 16 162/85 97 Room Air Physical Exam General Appearance: no apparent distress Respiratory/Chest: lungs clear, normal breath sounds, no respiratory distress, no accessory muscle use Cardiovascular: regular rate, rhythm, no edema, no murmur Extremities: + pertinent finding (R BKA, L knee - wound vac in place) Neurologic/Psychiatric: no motor/sensory deficits, alert, normal mood/affect Laboratory Results Last 24 Hours Test 11/28/16 05:30 11/28/16 07:59 11/28/16 12:19 11/28/16 17:14 White Blood Count 8.50 K/uL Red Blood Count 2.78 M/uL Hemoglobin 8.1 g/dL Hematocrit 25.2 % Mean Corpuscular Volume 90.6 fL Mean Corpuscular Hemoglobin 29.1 pg Mean Corpuscular Hemoglobin Concent 32.1 g/dl RDW Standard Deviation 50.8 fL RDW Coefficient of Variation 15.2 % Platelet Count 811 K/uL Mean Platelet Volume 8.5 fL Prothrombin Time 11.4 SECONDS Prothromb Time International Ratio 1.1 Sodium Level 134 mmol/L Potassium Level 4.1 mmol/L Chloride Level 98 mmol/L Carbon Dioxide Level 30 mmol/L Anion Gap 6.0 mmol/L Blood Urea Nitrogen 6 mg/dl Creatinine 0.42 mg/dl Est Creatinine Clear Calc Drug Dose 145.4 ml/min Estimated GFR () 122.9 Estimated GFR (Non- 106.1 BUN/Creatinine Ratio 14.5 Random Glucose 146 mg/dl Calcium Level 8.0 mg/dl Bedside Glucose 164 mg/dl 137 mg/dl 95 mg/dl Assessment and Plan SEPSIS with SEPTIC ARTHRITIS LEFT KNEE MRSA BACTEREMIA 11/28 non-excisional debridement today wound vac changed today as per wound care continuing traditional wound vac at this point will need a total of 6 weeks of daptomycin as per ID d/c plan to SNF s/p I&D and removal of implants with insertion of antibiotic spacer on 11/14 POD # 12 on wound vac -changed today by Dr Ma form continuous irrigation mode to traditional wound vac setting w will need continued follow up at wound care clinic for wound care and wound vac management Synovial fluid culture growth MRSA Blood culture -staph aureus /MRSA recent blood cultures on 11/14/16 - no growth to date appreciate ID eval Recommend to Continue daptomycin for 6 weeks will need weekly CBC ,CMP , ESR , CPK check while on daptomycin . Will need continued ID follow up on discharge ECHO : no valvular vegetation noted PICC line placed will need arrangements for IV Daptomycin at [facility] for 6 weeks updated by CM placement in SNF is difficult as IV Daptomycin being very expensive pt is allergic to Vancomycin D/w ID no effective option is available to adequately treat MRSA Sepsis / septic knee Case management updated LEFT LOWER EXT DVT 11/28 Patient is on Coumadin now s/p IVC filter in place will check INR in AM monitor for any bleeding; low threshold to stop Coumadin due to bleeding risk as well as anemia USG of left lower ext : IMPRESSION: Acute deep venous thrombosis progressive from the prior study of 10/20/2016 pt already has IVC filter placed D/w Dr Hogan Vascular surgery -no other vascular intervention can be done as IVC filter is present already recommend to treat pt with therapeutic anticoagulation -if OK with Ortho team Case D/w Ortho pt was on Aspirin 81 mg PO BID for DVT prophylaxis -not effective -as progression of DVT seen in L lower ext USG Ok start pt on Coumadin ( pt is almost 2 weeks post op ) given chronic anemia , and required 4 units PRBC transfusion high risk for bleeding complication will avoid bridge therapy Coumadin low dose 2 mg daily , follow PT /INR goal to keep INR between 2-2.5 D/C Aspirin ACUTE BLOOD LOSS ANEMIA - s/p 4 units PRBCs 11/28 Hgb is trending down to 8.1 Wound vac still draining blood s/p debridement on 11/28 now on Coumadin monitor H/H and INR may need to stop Coumadin and go back to aspirin -s/p transfused 4units PRBC's -Hgb stable follow CBC daily as pt is started on Coumadin HTN 11/28 blood pressure labile, as it keeps trending upwards monitor and we may need to adjust the dose of medications LOW URINE OUT PUT : improved D/c IVF ATRIAL FIBRILLATION cont on Beta jodie DM2 -hold glipizide -can be resumed on discharge -insulin coverage -glycemic pharmacy consulted PRESSURE ULCERS Pressure ulcer of right medial buttock, stage 2, POA and Pressure ulcer of medial sacrum, stage 2, not POA -- Wound care consulted DVT PROPHYLAXIS: aspirin BID per Ortho DISPOSITION ; per Ortho will need SNF for continued PT/wound care /IV Abx Awaiting acceptance
[2016-11-28 23:52] VITALS: BP 105/67; PULSE 74; TEMP 37; O2SAT 94
[2016-11-29] VITALS (7 sets, daily range): BP systolic 114–172; BP diastolic 71–82; PULSE 72–86; TEMP 36.5–36.9; O2SAT 92–96
[2016-11-29] MEDS: TRAMADOL HCL 50 MG TAB PO PRN ×4 (05:43→19:58)
[2016-11-29 05:49] LABS: HEMATOCRIT 27.7 % (37-47); MEAN CELL VOLUME 89.6 fL (80-100); MEAN CORPUSCULAR HEMOGLOBIN 27.8 pg (25-34); MEAN PLATELET VOLUME 8.3 fL (7.4-10.4); PLATELET COUNT 932 K/uL (130-400); RED BLOOD COUNT 3.09 M/uL (4.2-5.4); WHITE BLOOD COUNT 8.76 K/uL (4.8-10.8)
[2016-11-29 06:07] LABS: INR 1.1 (0.9-1.1); PROTHROMBIN TIME (PATIENT) 11.6 SECONDS (9.0-12.0)
[2016-11-29 06:21] LABS: BUN/CREATININE RATIO 14.1 (10-20); CALCIUM 8.1 mg/dl (8.5-10.1); CREATININE 0.45 mg/dl (0.60-1.20); MAGNESIUM 1.7 mg/dl (1.8-2.4); POTASSIUM 4.2 mmol/L (3.5-5.1)
[2016-11-29] MEDS: ONDANSETRON INJ 2 MG/ML 2 ML VIAL IV PRN (08:05)
--- NOTE | 2016-11-29 08:22 | Orthopedic Progress Note ---
Orthopedic Progress Note Date of Service Nov 29, 2016. Subjective Additional Notes: Pt sitting up in bed, nurses attending to her, feels dizzy when she's upright Objective Right BKA wound C/D/I. Left knee wound vac in place Date Time Temp Pulse Resp B/P Pulse Ox O2 Delivery O2 Flow Rate FiO2 11/29/16 07:37 36.7 78 16 158/82 95 Room Air 11/28/16 23:52 37.0 74 16 105/67 94 Room Air 11/28/16 23:45 Room Air 11/28/16 20:52 91 152/89 11/28/16 16:00 Room Air 11/28/16 15:35 36.6 77 16 138/74 92 Room Air 11/28/16 08:45 Room Air Laboratory Results 24 Hours: Test 11/29/16 05:14 Hematocrit 27.7 % Hemoglobin 8.6 g/dL Prothromb Time International Ratio 1.1 Prothrombin Time 11.6 SECONDS Assessment & Plan Assessment: SEPTIC ARTHRITIS LEFT TOTAL KNEE ARTHROPLASTY -POD #15 s/p I&D, removal total knee implant, placement of antibiotic spacer. Wound vac placed on left knee. - Will keep sutures in the left knee for now. Right BKA sutures will remain for total of [address] Car. -ID Consult, currently on Daptomycin. -awaiting placement, SS to discuss with ID alternatives to Daptomycin LLE DVT - Coumadin started : IVC filter placed AFib DM2 HTN Plan: will need continued Daptomycin (or alternative) for at least 6 weeks, PICC placed. will need follow up with ID upon discharge, as well as f/u at wound center. will need weekly CBC, CMP, ESR, CPK during dapto therapy. likely discharge to SNF if they will accept her with Dapto but likely they will not due to high cost of antibx. With current wound situation, new wound vac being placed back on today. Discussed briefly with Dr Car. If this continues to worsen, she may need an AKA. Dr Ibarra will need to discuss with Dr Ma (1) Infection of total left knee replacement (2) MRSA (methicillin resistant Staphylococcus aureus) septicemia (3) Leukocytosis Inhouse Planning Pain Management: Ultram, PO Tylenol, Oxy IR DVT Prophylaxis: TEDs, SCDs, Coumadin, ASA, other (IVC Filter) Discharge Planning Discharge Planning: custodial facility (Hopefully SNF if wound vac changed to traditional vac tomorrow. Will need IV dapto 6 weeks. )
[2016-11-29] MEDS: FERROUS GLUCONATE 324 MG TAB PO SCH ×3 (08:45→18:00)
[2016-11-29] MEDS: DOCUSATE SODIUM 100 MG CAP PO SCH ×2 (08:46→21:09)
[2016-11-29] MEDS: METOPROLOL TARTRATE 25 MG TAB PO SCH ×2 (08:49→21:09)
[2016-11-29] MEDS: MULTIVITAMIN TAB PO SCH (08:49)
[2016-11-29] MEDS: PANTOprazole SOD 40 MG TAB PO SCH (08:50)
[2016-11-29] MEDS: INSULIN ASPART 100 UNITS/ML 3 ML PEN SC SCH ×4 (09:21→21:00)
[2016-11-29] MEDS: INSULIN GLARGINE SOLOSTAR 100 UNITS/ML 3 ML PEN SC SCH (09:23)
--- NOTE | 2016-11-29 09:24 | Pharmacy Progress Note ---
Glycemic Control: Progress Nt Date of Service Nov 29, 2016. Scope Glycemic Pharmacist consulted by Dr Betancourt on 11/13 for glycemic control and to write orders per [facility] inpatient glycemic control protocol. Objective Accuchecks BSG (last 24hrs): Test 11/28/16 12:19 11/28/16 17:14 11/28/16 21:01 11/29/16 05:14 Bedside Glucose 137 mg/dl (70-90) 95 mg/dl (70-90) 155 mg/dl (70-90) Random Glucose 165 mg/dl (70-99) Test 11/29/16 08:05 Bedside Glucose 206 mg/dl (70-90) Laboratory Data (last 24hrs) Test 11/29/16 05:14 Anion Gap 5.0 mmol/L BUN/Creatinine Ratio 14.1 Blood Urea Nitrogen 6 mg/dl Creatinine 0.45 mg/dl Potassium Level 4.2 mmol/L Sodium Level 133 mmol/L White Blood Count 8.76 K/uL Recent Pertinent Medications Outpatient Anti-diabetic Regimen: * Glipizide ER 10mg qAM, Novolog QID per SS, Lantus 18 units BID * A1c = 7.7 % 10/20/16 The patient is currently receiving: * Basal insulin: Lantus 13 units qAM * Correctional Insulin: Novolog Correction per scale ACHS Goal Range: Low 110 mg/dL - High 140 mg/dL Correction Factor: 25 mg/dL/unit * Prandial insulin: 1 unit per 8 gm CHO consumed Risk Factors for Insulin Resistance: * Infection: Infected total knee replacement * Recent Surgery: L TKR 10/22/16; OR 11/14 for ABX spacer * Diet: type 2 diabetes - CHO intake ranging from 15-85 gm per meal yesterday Assessment & Plan ASSESSMENT: 11/29/16 * Pt rec'd 33 units of insulin yesterday w/ BSGs ranging from 95-165 mg/dL in the past 24 hours * POC this AM was up to 206 but I believe this may be a postprandial? Fasting blood draw was 165 this AM * Will plan to continue w/ current regimen since BSGs look good PLAN FOR INPATIENT GLYCEMIC CONTROL: * Continue Lantus 13 units qAM * Continue Novolog ACHS * Goal 110-140 mg/dL * CF 25 mg/dL/unit * CR 1 unit per 8 gm CHO consumed * Please note that the plan above was derived based on current level of insulin resistance and hospital stress. These recommendations are appropriate for inpatient admission only. Plan of care upon discharge will need to be reassessed to avoid potential outpatient hypo/hyperglycemia. Thank you.
[2016-11-29] MEDS: MAGNESIUM HYDROXIDE SUSP 30 ML UDC PO PRN (12:52)
[2016-11-29] MEDS: DAPTOmycin IV 600 MG in SODIUM CHLORIDE 0.9% 50ML 50 ML IV SCH (13:39)
[2016-11-29] MEDS: WARFARIN SOD 2 MG TAB PO SCH (16:14)
--- NOTE | 2016-11-29 18:24 | Progress Note ---
Subjective Date of Service: Nov 29, 2016. Subjective Pt evaluation today including: conversation w/ patient, physical exam, lab review, review of studies, review of inpatient medication list Saw/examined the patient in room 382 Doing well, eating and PO intake improved Pain controlled Wound vac in place on left knee Review of Systems Constitutional: + weakness, No chills, No fever Respiratory: No shortness of breath Cardiac: No chest pain Abdomen: No constipation, No diarrhea, No nausea, No pain, No vomiting Musculoskeletal: + joint pain (controlled with meds) Medications Current Inpatient Medications Medications (Trade) Dose Ordered Sig/Denisse Route Start Time Stop Time Status Last Admin Dose Admin Pantoprazole Sodium (Protonix Tab) 40 mg QAM PO 11/14/16 09:00 12/14/16 08:59 11/29/16 08:50 40 MG Acetaminophen (Tylenol Tab) 650 mg Q4H PRN PO 11/13/16 13:00 12/13/16 12:59 11/13/16 23:43 650 MG Docusate Sodium (coLACE CAP) 100 mg BID PO 11/13/16 21:00 12/13/16 20:59 11/29/16 08:46 100 MG Folic Acid (Folvite Tab) 1 mg DAILY PO 11/14/16 09:00 12/14/16 08:59 11/29/16 08:47 1 MG Tramadol HCl 50 mg 50 mg Q4H PRN PO 11/13/16 13:00 12/13/16 12:59 11/29/16 14:19 50 MG Daptomycin/Sodium Chloride (Cubicin IV/Nss 50ml) 62 ml @ 120 mls/hr Q24H IV 11/13/16 14:00 12/25/16 13:59 11/29/16 13:39 120 MLS/HR Glucose (Glucose 40% Gel) 15-30 GRAMS 15 GRAMS... UD PRN PO 11/13/16 14:30 12/13/16 14:29 Glucose (Glucose Chew Tab) 4-8 Tablets 4 Tabl... UD PRN PO 11/13/16 14:30 12/13/16 14:29 Dextrose (Dextrose 50% 50ML Syringe) 25-50ML OF 50% DW IV FOR... UD PRN IV 11/13/16 14:30 12/13/16 14:29 11/16/16 16:36 50 ML Glucagon (Glucagon Inj) 1 mg UD PRN SQ 11/13/16 14:30 12/13/16 14:29 Magnesium Hydroxide (Milk Of Magnesia Susp) 30 ml Q6H PRN PO 11/14/16 11:45 12/14/16 11:44 11/29/16 12:52 30 ML Bisacodyl (Dulcolax Supp) 10 mg DAILY PRN PA 11/14/16 11:45 12/14/16 11:44 Senna (Senokot Tab) 17.2 mg HS PO 11/14/16 21:00 12/14/16 20:59 11/28/16 21:02 17.2 MG Diphenhydramine HCl (Benadryl Inj) 25 mg Q8H PRN IV 11/14/16 11:45 12/14/16 11:44 Al Hydrox/Mg Hydrox/Simethicone (Maalox Max Susp) 15 ml Q4H PRN PO 11/14/16 11:45 12/14/16 11:44 Multivitamins (Multivitamin Tab) 1 tab QAM PO 11/15/16 09:00 12/15/16 08:59 11/29/16 08:49 1 TAB Ondansetron HCl (Zofran Inj) 4 mg Q6H PRN IV 11/14/16 11:45 12/14/16 11:44 11/29/16 08:05 4 MG Ferrous Gluconate (Ferrous Gluconate Tab) 324 mg TIDM PO 11/14/16 12:30 12/14/16 12:29 11/29/16 18:00 324 MG Miscellaneous Information (Consult Glycemic Management Pharmacy) 1 ea UD PRN N/A 11/14/16 21:30 12/14/16 21:29 Heparin Sodium (Porcine) (Heparin 10 Unit/ ml 5 ml Flush) 5 ml PRN PRN FLUSH 11/15/16 01:30 12/15/16 01:29 11/29/16 08:05 5 ML Insulin Aspart (novoLOG ASPART) SLIDING SCALE ACHS SC 11/15/16 16:00 12/15/16 15:59 11/29/16 13:22 6 UNITS Metoprolol Tartrate (Lopressor Tab) 25 mg BID PO 11/15/16 21:00 12/15/16 20:59 11/29/16 08:49 25 MG Miconazole Nitrate (Desenex Powder) 1 appln BID PRN EXT 11/16/16 17:00 12/16/16 16:59 11/21/16 10:09 1 APPLN Insulin Glargine (Lantus Solostar Pen) 13 unit QAM SC 11/25/16 09:00 12/25/16 08:59 11/29/16 09:23 13 UNIT Warfarin Sodium (Coumadin Tab) 2 mg DAILY@16 PO 11/28/16 16:00 12/28/16 15:59 11/29/16 16:14 2 MG Objective Vital Signs Date Time Temp Pulse Resp B/P Pulse Ox O2 Delivery O2 Flow Rate FiO2 11/29/16 15:40 Room Air 11/29/16 14:57 36.5 78 18 120/71 92 Room Air 11/29/16 14:49 114/71 11/29/16 12:01 36.8 72 17 172/78 96 Room Air 11/29/16 10:31 95 Room Air 11/29/16 08:00 Room Air 11/29/16 07:37 36.7 78 16 158/82 95 Room Air 11/28/16 23:52 37.0 74 16 105/67 94 Room Air 11/28/16 23:45 Room Air 11/28/16 20:52 91 152/89 Physical Exam General Appearance: no apparent distress Respiratory/Chest: no respiratory distress, no accessory muscle use Cardiovascular: regular rate, rhythm, no edema Abdomen: non tender, soft Extremities: + pertinent finding (R BKA, L wound vac in place) Laboratory Results Last 24 Hours Test 11/28/16 21:01 11/29/16 05:14 11/29/16 08:05 11/29/16 12:20 Bedside Glucose 155 mg/dl 206 mg/dl 202 mg/dl White Blood Count 8.76 K/uL Red Blood Count 3.09 M/uL Hemoglobin 8.6 g/dL Hematocrit 27.7 % Mean Corpuscular Volume 89.6 fL Mean Corpuscular Hemoglobin 27.8 pg Mean Corpuscular Hemoglobin Concent 31.0 g/dl RDW Standard Deviation 48.6 fL RDW Coefficient of Variation 14.9 % Platelet Count 932 K/uL Mean Platelet Volume 8.3 fL Prothrombin Time 11.6 SECONDS Prothromb Time International Ratio 1.1 Sodium Level 133 mmol/L Potassium Level 4.2 mmol/L Chloride Level 97 mmol/L Carbon Dioxide Level 31 mmol/L Anion Gap 5.0 mmol/L Blood Urea Nitrogen 6 mg/dl Creatinine 0.45 mg/dl Est Creatinine Clear Calc Drug Dose 135.7 ml/min Estimated GFR () 120.2 Estimated GFR (Non- 103.7 BUN/Creatinine Ratio 14.1 Random Glucose 165 mg/dl Calcium Level 8.1 mg/dl Magnesium Level 1.7 mg/dl Test 11/29/16 17:04 Bedside Glucose 161 mg/dl Assessment and Plan SEPSIS with SEPTIC ARTHRITIS LEFT KNEE MRSA BACTEREMIA 11/29 IV dapto x 6 weeks wound vac wound care + orthopedic regarding further care 11/28 non-excisional debridement today wound vac changed today as per wound care continuing traditional wound vac at this point will need a total of 6 weeks of daptomycin as per ID d/c plan to SNF s/p I&D and removal of implants with insertion of antibiotic spacer on 11/14 POD # 12 on wound vac -changed today by Dr Ma form continuous irrigation mode to traditional wound vac setting w will need continued follow up at wound care clinic for wound care and wound vac management Synovial fluid culture growth MRSA Blood culture -staph aureus /MRSA recent blood cultures on 11/14/16 - no growth to date appreciate ID eval Recommend to Continue daptomycin for 6 weeks will need weekly CBC ,CMP , ESR , CPK check while on daptomycin . Will need continued ID follow up on discharge ECHO : no valvular vegetation noted PICC line placed will need arrangements for IV Daptomycin at [facility] for 6 weeks updated by CM placement in SNF is difficult as IV Daptomycin being very expensive pt is allergic to Vancomycin D/w ID no effective option is available to adequately treat MRSA Sepsis / septic knee Case management updated LEFT LOWER EXT DVT 11/29 now on Coumadin check INR in AM 11/28 Patient is on Coumadin now s/p IVC filter in place will check INR in AM monitor for any bleeding; low threshold to stop Coumadin due to bleeding risk as well as anemia USG of left lower ext : IMPRESSION: Acute deep venous thrombosis progressive from the prior study of 10/20/2016 pt already has IVC filter placed D/w Dr Hogan Vascular surgery -no other vascular intervention can be done as IVC filter is present already recommend to treat pt with therapeutic anticoagulation -if OK with Ortho team Case D/w Ortho pt was on Aspirin 81 mg PO BID for DVT prophylaxis -not effective -as progression of DVT seen in L lower ext USG Ok start pt on Coumadin ( pt is almost 2 weeks post op ) given chronic anemia , and required 4 units PRBC transfusion high risk for bleeding complication will avoid bridge therapy Coumadin low dose 2 mg daily , follow PT /INR goal to keep INR between 2-2.5 D/C Aspirin ACUTE BLOOD LOSS ANEMIA - s/p 4 units PRBCs 11/29 Hgb up to 8.6 will monitor and transfuse if < 7 or if symptomatic 11/28 Hgb is trending down to 8.1 Wound vac still draining blood s/p debridement on 11/28 now on Coumadin monitor H/H and INR may need to stop Coumadin and go back to aspirin -s/p transfused 4units PRBC's -Hgb stable follow CBC daily as pt is started on Coumadin HTN 11/28 blood pressure labile, as it keeps trending upwards monitor and we may need to adjust the dose of medications LOW URINE OUT PUT : improved D/c IVF ATRIAL FIBRILLATION cont on Beta jodie DM2 -hold glipizide -can be resumed on discharge -insulin coverage -glycemic pharmacy consulted PRESSURE ULCERS Pressure ulcer of right medial buttock, stage 2, POA and Pressure ulcer of medial sacrum, stage 2, not POA -- Wound care consulted DVT PROPHYLAXIS: aspirin BID per Ortho DISPOSITION ; per Ortho will need SNF for continued PT/wound care /IV Abx Awaiting acceptance
[2016-11-29] MEDS: SENNA 8.6 MG TAB PO SCH (21:09)
[2016-11-30 06:17] LABS: HEMATOCRIT 26.6 % (37-47); MEAN CELL VOLUME 90.2 fL (80-100); MEAN CORPUSCULAR HEMOGLOBIN 28.5 pg (25-34); MEAN CORPUSCULAR HGB CONC 31.6 g/dl (32-36); MEAN PLATELET VOLUME 8.4 fL (7.4-10.4); PLATELET COUNT 875 K/uL (130-400); RED BLOOD COUNT 2.95 M/uL (4.2-5.4)
[2016-11-30 06:25] LABS: INR 1.1 (0.9-1.1); PROTHROMBIN TIME (PATIENT) 11.8 SECONDS (9.0-12.0)
[2016-11-30 06:52] LABS: BUN/CREATININE RATIO 14.9 (10-20); CALCIUM 8.1 mg/dl (8.5-10.1); CREATININE 0.5 mg/dl (0.60-1.20); POTASSIUM 4.1 mmol/L (3.5-5.1)
[2016-11-30 07:15] VITALS: BP 166/88; PULSE 76; TEMP 36.9; O2SAT 94
[2016-11-30] MEDS: TRAMADOL HCL 50 MG TAB PO PRN ×3 (07:38→19:43)
[2016-11-30] MEDS: ONDANSETRON INJ 2 MG/ML 2 ML VIAL IV PRN (07:57)
[2016-11-30] MEDS: FERROUS GLUCONATE 324 MG TAB PO SCH ×3 (08:24→17:33)
[2016-11-30] MEDS: MULTIVITAMIN TAB PO SCH (08:25)
[2016-11-30] MEDS: METOPROLOL TARTRATE 25 MG TAB PO SCH ×2 (08:25→21:52)
[2016-11-30] MEDS: PANTOprazole SOD 40 MG TAB PO SCH (08:26)
[2016-11-30] MEDS: DOCUSATE SODIUM 100 MG CAP PO SCH ×2 (08:26→21:42)
[2016-11-30] MEDS: INSULIN ASPART 100 UNITS/ML 3 ML PEN SC SCH ×4 (08:43→21:45)
[2016-11-30] MEDS: INSULIN GLARGINE SOLOSTAR 100 UNITS/ML 3 ML PEN SC SCH ×2 (08:44→21:43)
--- NOTE | 2016-11-30 08:47 | Orthopedic Progress Note ---
Orthopedic Progress Note Date of Service Nov 30, 2016. Subjective Additional Notes: Nurse states pt's foot feels cold and she's unable to palpate dorsalis pedis or posterior tibial pulse. She is able to get posterior tibial pulse with Doppler but not dorsalis pedis. Objective Right BKA looks good with sutures still intact. Left knee wound vac in place. Left foot cold, good capillary refill. Posterior tibial and dorsalis pedis pulses nonpalpable Date Time Temp Pulse Resp B/P Pulse Ox O2 Delivery O2 Flow Rate FiO2 11/30/16 07:15 36.9 76 16 166/88 94 Room Air 11/29/16 23:45 Room Air 11/29/16 23:29 36.9 86 15 150/77 92 Room Air 11/29/16 21:08 79 142/73 11/29/16 15:40 Room Air 11/29/16 14:57 36.5 78 18 120/71 92 Room Air 11/29/16 14:49 114/71 11/29/16 12:01 36.8 72 17 172/78 96 Room Air 11/29/16 10:31 95 Room Air Laboratory Results 24 Hours: Test 11/30/16 05:25 Hematocrit 26.6 % Hemoglobin 8.4 g/dL Prothromb Time International Ratio 1.1 Prothrombin Time 11.8 SECONDS Assessment & Plan Assessment: SEPTIC ARTHRITIS LEFT TOTAL KNEE ARTHROPLASTY -POD #16 s/p I&D, removal total knee implant, placement of antibiotic spacer. Wound vac placed on left knee. - Will keep sutures in the left knee for now. Right BKA sutures will remain for total of [address] Car. -ID Consult, currently on Daptomycin. -awaiting placement, SS to discuss with ID alternatives to Daptomycin LLE DVT - Coumadin started : IVC filter placed AFib DM2 HTN Plan: will need continued Daptomycin (or alternative) for at least 6 weeks, PICC placed. will need follow up with ID upon discharge, as well as f/u at wound center. will need weekly CBC, CMP, ESR, CPK during dapto therapy. likely discharge to SNF if they will accept her with Dapto but likely they will not due to high cost of antibx. With current wound situation, new wound vac being placed back on today. Discussed briefly with Dr Car. If this continues to worsen, she may need an AKA. Dr Ibarra will need to discuss with Dr Ma. I spoke with Dr Botello. He states left foot pulses were never really palpable and given her situation, would not be bypass candidate anyway so nothing further to be done at this time. (1) Infection of total left knee replacement (2) MRSA (methicillin resistant Staphylococcus aureus) septicemia (3) Leukocytosis Inhouse Planning Pain Management: Ultram, PO Tylenol, Oxy IR DVT Prophylaxis: TEDs, SCDs, Coumadin, ASA, other (IVC Filter) Discharge Planning Discharge Planning: fpc facility (Hopefully SNF if wound vac changed to traditional vac tomorrow. Will need IV dapto 6 weeks. )
--- NOTE | 2016-11-30 08:59 | Pharmacy Progress Note ---
Glycemic Control: Progress Nt Date of Service Nov 30, 2016. Scope Glycemic Pharmacist consulted by Dr Betancourt on 11/13 for glycemic control and to write orders per [facility] inpatient glycemic control protocol. Objective Accuchecks BSG (last 24hrs): Test 11/29/16 12:20 11/29/16 17:04 11/29/16 20:42 11/30/16 05:25 Bedside Glucose 202 mg/dl (70-90) 161 mg/dl (70-90) 126 mg/dl (70-90) Random Glucose 178 mg/dl (70-99) Test 11/30/16 07:53 Bedside Glucose 213 mg/dl (70-90) Laboratory Data (last 24hrs) Test 11/30/16 05:25 Anion Gap 6.0 mmol/L BUN/Creatinine Ratio 14.9 Blood Urea Nitrogen 7 mg/dl Creatinine 0.50 mg/dl Potassium Level 4.1 mmol/L Sodium Level 135 mmol/L White Blood Count 7.80 K/uL Recent Pertinent Medications Outpatient Anti-diabetic Regimen: * Glipizide ER 10mg qAM, Novolog QID per SS, Lantus 18 units BID * A1c = 7.7 % 10/20/16 The patient is currently receiving: * Basal insulin: Lantus 13 units qAM * Correctional Insulin: Novolog Correction per scale ACHS Goal Range: Low 110 mg/dL - High 140 mg/dL Correction Factor: 20 mg/dL/unit * Prandial insulin: 1 unit per 8 gm CHO consumed Risk Factors for Insulin Resistance: * Infection: Infected total knee replacement * Recent Surgery: L TKR 10/22/16; OR 11/14 for ABX spacer * Diet: type 2 diabetes - varying CHO intake w/ meals Assessment & Plan ASSESSMENT: 11/29/16 * Pt rec'd 33 units of insulin yesterday w/ BSGs ranging from 95-165 mg/dL in the past 24 hours * POC this AM was up to 206 but I believe this may be a postprandial? Fasting blood draw was 165 this AM * Will plan to continue w/ current regimen since BSGs look good 11/30/16 * Ms. Johnson rec'd 29 units of insulin yesterday w/ BSGs ranging from 126-202 * Fasting BSG has been elevated for the past few days, but remainder of BSGs fairly well controlled, so this indicates to me that maybe the Lantus is just not lasting the full 24 hours? * Will trial splitting Lantus BID (what pt does as an outpatient as well) * Will continue Novolog regimen as is PLAN FOR INPATIENT GLYCEMIC CONTROL: * CHANGE Lantus to 7 units BID * Continue Novolog ACHS * Goal 110-140 mg/dL * CF 20 mg/dL/unit * CR 1 unit per 8 gm CHO consumed * Please note that the plan above was derived based on current level of insulin resistance and hospital stress. These recommendations are appropriate for inpatient admission only. Plan of care upon discharge will need to be reassessed to avoid potential outpatient hypo/hyperglycemia. Thank you.
[2016-11-30] MEDS: DAPTOmycin IV 600 MG in SODIUM CHLORIDE 0.9% 50ML 50 ML IV SCH (13:46)
[2016-11-30 15:40] VITALS: BP 158/74; PULSE 70; TEMP 36.5; O2SAT 97
[2016-11-30] MEDS: WARFARIN SOD 2 MG TAB PO SCH (17:14)
[2016-11-30] MEDS: SENNA 8.6 MG TAB PO SCH (21:42)
[2016-11-30 23:27] VITALS: BP 159/88; PULSE 80; TEMP 36.8; O2SAT 96
[2016-12-01 06:01] LABS: HEMATOCRIT 27.1 % (37-47); MEAN CELL VOLUME 90.9 fL (80-100); MEAN CORPUSCULAR HEMOGLOBIN 28.9 pg (25-34); MEAN CORPUSCULAR HGB CONC 31.7 g/dl (32-36); MEAN PLATELET VOLUME 8.5 fL (7.4-10.4); PLATELET COUNT 882 K/uL (130-400); RED BLOOD COUNT 2.98 M/uL (4.2-5.4); WHITE BLOOD COUNT 8.22 K/uL (4.8-10.8)
[2016-12-01 06:11] LABS: INR 1.1 (0.9-1.1); PROTHROMBIN TIME (PATIENT) 11.5 SECONDS (9.0-12.0)
[2016-12-01 07:03] VITALS: BP 162/84; PULSE 66; TEMP 36.9; O2SAT 95
--- NOTE | 2016-12-01 09:24 | Progress Note ---
Subjective Date of Service: Dec 01, 2016. Subjective pt remains on dapto. now with extensive dvt of lle. pulses less, foot cool, for vac change. tolerating abx. afebrile. repeat blood cultures are negative and final. previous wound and blood culture grew MRSA. vanco allergy noted, options limited for abx in this pt. Discussion regarding additional surgery in progress , not a candidate for vascular intervention, may require amp Objective Vital Signs Date Time Temp Pulse Resp B/P Pulse Ox O2 Delivery O2 Flow Rate FiO2 12/01/16 07:03 36.9 66 18 162/84 95 11/30/16 23:27 36.8 80 18 159/88 96 Room Air 11/30/16 23:25 Room Air 11/30/16 16:45 Room Air 11/30/16 15:40 36.5 70 16 158/74 97 Room Air Laboratory Results Item Value Date Time Blood Culture - Final Complete 11/16/16 1006 Blood NO GROWTH Blood Culture - Final Complete 11/14/16 1327 Blood Staphylococcus Aureus Gram Stain - Final Complete 11/13/16 1350 Joint Fluid/Space (Synovial) Knee Left Last 24 Hours Test 11/30/16 11:47 11/30/16 17:16 11/30/16 20:47 12/01/16 05:40 Bedside Glucose 161 mg/dl 181 mg/dl 173 mg/dl White Blood Count 8.22 K/uL Red Blood Count 2.98 M/uL Hemoglobin 8.6 g/dL Hematocrit 27.1 % Mean Corpuscular Volume 90.9 fL Mean Corpuscular Hemoglobin 28.9 pg Mean Corpuscular Hemoglobin Concent 31.7 g/dl RDW Standard Deviation 50.8 fL RDW Coefficient of Variation 15.2 % Platelet Count 882 K/uL Mean Platelet Volume 8.5 fL Prothrombin Time 11.5 SECONDS Prothromb Time International Ratio 1.1 Test 12/01/16 08:11 Bedside Glucose 206 mg/dl Assessment and Plan (1) Infection of total left knee replacement Assessment & Plan: continue dapto, will need several weeks. pt states she will not have repeat surgery for 12 weeks, will need long course of abx. will need weekly cbc,cmp, esr, cpk while on dapto. repeat cultures negative to date. will need ID follow up as well as ortho follow up post d/c pt for vac change, will need continue follow up at wound center post d/c would give min 6 weeks dapto, check weekly labs. would suggest echo r/o IE. repeat cultures negative and final. With complications of dvt and cool foot, she may require additional surgery, agree that amputation may be required given her current infection and other co morbidities. 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 She has undergone spacer placement and vac this admission. continue dapto for now, pending surgical plan. (2) MRSA (methicillin resistant Staphylococcus aureus) septicemia (3) Leukocytosis
[2016-12-01] MEDS: TRAMADOL HCL 50 MG TAB PO PRN ×3 (09:56→19:34)
[2016-12-01] MEDS: ONDANSETRON INJ 2 MG/ML 2 ML VIAL IV PRN ×2 (09:56→15:58)
[2016-12-01] MEDS: INSULIN ASPART 100 UNITS/ML 3 ML PEN SC SCH ×4 (09:59→21:03)
[2016-12-01] MEDS: INSULIN GLARGINE SOLOSTAR 100 UNITS/ML 3 ML PEN SC SCH ×2 (09:59→21:00)
[2016-12-01] MEDS: FERROUS GLUCONATE 324 MG TAB PO SCH ×3 (09:59→18:07)
[2016-12-01] MEDS: PANTOprazole SOD 40 MG TAB PO SCH (10:00)
[2016-12-01] MEDS: DOCUSATE SODIUM 100 MG CAP PO SCH ×2 (10:00→20:57)
[2016-12-01] MEDS: METOPROLOL TARTRATE 25 MG TAB PO SCH ×2 (10:00→20:58)
[2016-12-01] MEDS: MULTIVITAMIN TAB PO SCH (10:01)
--- NOTE | 2016-12-01 11:11 | Pharmacy Progress Note ---
Glycemic Control: Progress Nt Date of Service Dec 01, 2016. Scope Glycemic Pharmacist consulted by Dr Betancourt on 11/13 for glycemic control and to write orders per [facility] inpatient glycemic control protocol. Objective Accuchecks BSG (last 24hrs): Test 11/30/16 11:47 11/30/16 17:16 11/30/16 20:47 12/01/16 08:11 Bedside Glucose 161 mg/dl (70-90) 181 mg/dl (70-90) 173 mg/dl (70-90) 206 mg/dl (70-90) Laboratory Data (last 24hrs) Test 12/01/16 05:40 White Blood Count 8.22 K/uL Recent Pertinent Medications Outpatient Anti-diabetic Regimen: * Glipizide ER 10mg qAM, Novolog QID per SS, Lantus 18 units BID * A1c = 7.7 % 10/20/16 The patient is currently receiving: * Basal insulin: Lantus 7 units BID * Correctional Insulin: Novolog Correction per scale ACHS Goal Range: Low 110 mg/dL - High 140 mg/dL Correction Factor: 20 mg/dL/unit * Prandial insulin: 1 unit per 8 gm CHO consumed Risk Factors for Insulin Resistance: * Infection: Infected total knee replacement * Recent Surgery: L TKR 10/22/16; OR 11/14 for ABX spacer * Diet: type 2 diabetes - varying CHO intake w/ meals Assessment & Plan ASSESSMENT: 11/29/16 * Pt rec'd 33 units of insulin yesterday w/ BSGs ranging from 95-165 mg/dL in the past 24 hours * POC this AM was up to 206 but I believe this may be a postprandial? Fasting blood draw was 165 this AM * Will plan to continue w/ current regimen since BSGs look good 11/30/16 * Ms. Johnson rec'd 29 units of insulin yesterday w/ BSGs ranging from 126-202 * Fasting BSG has been elevated for the past few days, but remainder of BSGs fairly well controlled, so this indicates to me that maybe the Lantus is just not lasting the full 24 hours? * Will trial splitting Lantus BID (what pt does as an outpatient as well) * Will continue Novolog regimen as is 12/01/16 * Pt rec'd 37 units of insulin yesterday w/ BSGs ranging from 161-206 * Fasting remains elevated after split of Lantus into BID * Will plan to increase by ~25% (she rec'd at least 6 units of correctional insulin yesterday) PLAN FOR INPATIENT GLYCEMIC CONTROL: * INCREASE Lantus to 9 units BID * Continue Novolog ACHS * Goal 110-140 mg/dL * CF 20 mg/dL/unit * CR 1 unit per 8 gm CHO consumed RECOMMENDATIONS FOR DISCHARGE: * A1c acceptable; resume outpatient regimen upon discharge * Patient already receiving BID Lantus so will be able to easily transition to her BID Lantus as an outpatient Thank you.
[2016-12-01 11:18] VITALS: BP 132/84
[2016-12-01] MEDS ORDERED: COLLAGENASE OINT 30 GM TUBE EXT SCH (13:00)
[2016-12-01] MEDS: DAPTOmycin IV 600 MG in SODIUM CHLORIDE 0.9% 50ML 50 ML IV SCH (14:20)
--- NOTE | 2016-12-01 14:25 | Orthopedic Progress Note ---
Orthopedic Progress Note Date of Service Dec 01, 2016. Subjective Additional Notes: Pt lying in bed. Wound care nursing present and removed the wound vac. Pt appears comfortable but states that her left knee hurts off and on. No new complaints. Objective A&O x3 Distal wound size appears about the same as when Iast saw it. Central portion of wound appears to be drying out a bit. Area of demarcation on the lateral aspect with less black eschar. No overt erythema around the wound and knee. Pushing on the medial aspect of the wound does express some drainage and patient states she does have pain with palpation. The proximal portion of the wound has less black eschar and appears to be healing. Right BKA wound benign. Date Time Temp Pulse Resp B/P Pulse Ox O2 Delivery O2 Flow Rate FiO2 12/01/16 11:18 132/84 12/01/16 07:40 Room Air 12/01/16 07:03 36.9 66 18 162/84 95 11/30/16 23:27 36.8 80 18 159/88 96 Room Air 11/30/16 23:25 Room Air 11/30/16 16:45 Room Air 11/30/16 15:40 36.5 70 16 158/74 97 Room Air Laboratory Results 24 Hours: Test 12/01/16 05:40 Hematocrit 27.1 % Hemoglobin 8.6 g/dL Prothromb Time International Ratio 1.1 Prothrombin Time 11.5 SECONDS Assessment & Plan Assessment: SEPTIC ARTHRITIS LEFT TOTAL KNEE ARTHROPLASTY - s/p I&D, removal total knee implant, placement of antibiotic spacer. Wound vac placed on left knee. - Will keep sutures in the left knee for now. Right BKA sutures will remain for total of [address] Car. (Plan for those to come out this Thursday) -ID Consult, currently on Daptomycin. -awaiting placement, SS to discuss with ID alternatives to Daptomycin - Photos of wound taken today by Wound care nursing and sent to Dr Ma. Will await his plans. Dr Ibarra to discuss case with Dr Ma. - Discussed the case with pt and family that is present. Pt understands that if the infection is not eradicated, that she may need an AKA. LLE DVT - Coumadin started : IVC filter placed AFib DM2 HTN Plan: will need continued Daptomycin (or alternative) for at least 6 weeks, PICC placed. will need follow up with ID upon discharge, as well as f/u at wound center. will need weekly CBC, CMP, ESR, CPK during dapto therapy. likely discharge to SNF if they will accept her with Dapto but likely they will not due to high cost of antibx. Regarding left foot pulses, Dr Botello. stated left foot pulses were never really palpable and given her situation, would not be bypass candidate anyway so nothing further to be done at this time. (1) Infection of total left knee replacement (2) MRSA (methicillin resistant Staphylococcus aureus) septicemia (3) Leukocytosis Inhouse Planning Pain Management: Ultram, PO Tylenol, Oxy IR DVT Prophylaxis: TEDs, SCDs, Coumadin, ASA, other (IVC Filter) Discharge Planning Discharge Planning: detention facility (Hopefully SNF if wound vac changed to traditional vac tomorrow. Will need IV dapto 6 weeks. )
[2016-12-01 15:00] VITALS: BP 142/83; PULSE 73; TEMP 36.6; O2SAT 94
[2016-12-01] MEDS: WARFARIN SOD 2 MG TAB PO SCH (15:48)
--- NOTE | 2016-12-01 16:43 | Progress Note ---
Subjective Date of Service: Dec 01, 2016. Subjective Pt evaluation today including: conversation w/ patient, physical exam, lab review, review of studies, review of inpatient medication list Saw/examined the patient in room 382 She states she has burning and pain at the left knee She had the wound vac replaced today on that left knee no pain on R side +nausea, + vomiting eating yogurt and tolerating that currently Review of Systems Constitutional: + fatigue, + weakness, No chills, No fever Respiratory: No cough, No shortness of breath Cardiac: No chest pain Abdomen: + nausea, + vomiting, No constipation, No diarrhea, No pain Musculoskeletal: + joint pain Medications Current Inpatient Medications Medications (Trade) Dose Ordered Sig/Denisse Route Start Time Stop Time Status Last Admin Dose Admin Pantoprazole Sodium (Protonix Tab) 40 mg QAM PO 11/14/16 09:00 12/14/16 08:59 12/01/16 10:00 40 MG Acetaminophen (Tylenol Tab) 650 mg Q4H PRN PO 11/13/16 13:00 12/13/16 12:59 11/13/16 23:43 650 MG Docusate Sodium (coLACE CAP) 100 mg BID PO 11/13/16 21:00 12/13/16 20:59 12/01/16 10:00 100 MG Folic Acid (Folvite Tab) 1 mg DAILY PO 11/14/16 09:00 12/14/16 08:59 12/01/16 10:00 1 MG Tramadol HCl 50 mg 50 mg Q4H PRN PO 11/13/16 13:00 12/13/16 12:59 12/01/16 14:20 50 MG Daptomycin/Sodium Chloride (Cubicin IV/Nss 50ml) 62 ml @ 120 mls/hr Q24H IV 11/13/16 14:00 12/25/16 13:59 12/01/16 14:20 120 MLS/HR Glucose (Glucose 40% Gel) 15-30 GRAMS 15 GRAMS... UD PRN PO 11/13/16 14:30 12/13/16 14:29 Glucose (Glucose Chew Tab) 4-8 Tablets 4 Tabl... UD PRN PO 11/13/16 14:30 12/13/16 14:29 Dextrose (Dextrose 50% 50ML Syringe) 25-50ML OF 50% DW IV FOR... UD PRN IV 11/13/16 14:30 12/13/16 14:29 11/16/16 16:36 50 ML Glucagon (Glucagon Inj) 1 mg UD PRN SQ 11/13/16 14:30 12/13/16 14:29 Magnesium Hydroxide (Milk Of Magnesia Susp) 30 ml Q6H PRN PO 11/14/16 11:45 12/14/16 11:44 11/29/16 12:52 30 ML Bisacodyl (Dulcolax Supp) 10 mg DAILY PRN DC 11/14/16 11:45 12/14/16 11:44 Senna (Senokot Tab) 17.2 mg HS PO 11/14/16 21:00 12/14/16 20:59 11/30/16 21:42 17.2 MG Diphenhydramine HCl (Benadryl Inj) 25 mg Q8H PRN IV 11/14/16 11:45 12/14/16 11:44 Al Hydrox/Mg Hydrox/Simethicone (Maalox Max Susp) 15 ml Q4H PRN PO 11/14/16 11:45 12/14/16 11:44 Multivitamins (Multivitamin Tab) 1 tab QAM PO 11/15/16 09:00 12/15/16 08:59 12/01/16 10:01 1 TAB Ondansetron HCl (Zofran Inj) 4 mg Q6H PRN IV 11/14/16 11:45 12/14/16 11:44 12/01/16 15:58 4 MG Ferrous Gluconate (Ferrous Gluconate Tab) 324 mg TIDM PO 11/14/16 12:30 12/14/16 12:29 12/01/16 13:48 324 MG Miscellaneous Information (Consult Glycemic Management Pharmacy) 1 ea UD PRN N/A 11/14/16 21:30 12/14/16 21:29 Heparin Sodium (Porcine) (Heparin 10 Unit/ ml 5 ml Flush) 5 ml PRN PRN FLUSH 11/15/16 01:30 12/15/16 01:29 12/01/16 15:10 5 ML Insulin Aspart (novoLOG ASPART) SLIDING SCALE ACHS SC 11/15/16 16:00 12/15/16 15:59 12/01/16 13:52 9 UNITS Miconazole Nitrate (Desenex Powder) 1 appln BID PRN EXT 11/16/16 17:00 12/16/16 16:59 11/21/16 10:09 1 APPLN Warfarin Sodium (Coumadin Tab) 2 mg DAILY@16 PO 11/28/16 16:00 12/28/16 15:59 12/01/16 15:48 2 MG Metoprolol Tartrate (Lopressor Tab) 37.5 mg BID PO 11/30/16 21:00 12/30/16 20:59 12/01/16 10:00 37.5 MG Insulin Glargine (Lantus Solostar Pen) 9 unit BID SC 12/01/16 09:00 12/31/16 08:59 12/01/16 09:59 9 UNIT Collagenase (Santyl Oint) 1 appln UD EXT 12/01/16 13:00 12/31/16 12:59 Objective Vital Signs Date Time Temp Pulse Resp B/P Pulse Ox O2 Delivery O2 Flow Rate FiO2 12/01/16 15:00 36.6 73 18 142/83 94 Room Air 12/01/16 11:18 132/84 12/01/16 07:40 Room Air 12/01/16 07:03 36.9 66 18 162/84 95 11/30/16 23:27 36.8 80 18 159/88 96 Room Air 11/30/16 23:25 Room Air 11/30/16 16:45 Room Air Physical Exam General Appearance: no apparent distress ENT: + pertinent finding (partial edentulism) Respiratory/Chest: lungs clear, normal breath sounds, no respiratory distress, no accessory muscle use Cardiovascular: regular rate, rhythm, no edema, no murmur Abdomen: normal bowel sounds, non tender, soft Extremities: + pertinent finding (R BKA; L leg with wound vac on the knee; PICC line in RUE) Neurologic/Psychiatric: no motor/sensory deficits, alert, normal mood/affect Laboratory Results Last 24 Hours Test 11/30/16 17:16 11/30/16 20:47 12/01/16 05:40 12/01/16 08:11 Bedside Glucose 181 mg/dl 173 mg/dl 206 mg/dl White Blood Count 8.22 K/uL Red Blood Count 2.98 M/uL Hemoglobin 8.6 g/dL Hematocrit 27.1 % Mean Corpuscular Volume 90.9 fL Mean Corpuscular Hemoglobin 28.9 pg Mean Corpuscular Hemoglobin Concent 31.7 g/dl RDW Standard Deviation 50.8 fL RDW Coefficient of Variation 15.2 % Platelet Count 882 K/uL Mean Platelet Volume 8.5 fL Prothrombin Time 11.5 SECONDS Prothromb Time International Ratio 1.1 Test 12/01/16 11:55 Bedside Glucose 206 mg/dl Assessment and Plan SEPSIS with SEPTIC ARTHRITIS LEFT KNEE MRSA BACTEREMIA 12/01 wound vac has been replaced today ID = IV dapto x 6 weeks wound care and orthopedic on board for further management 11/29 IV dapto x 6 weeks wound vac wound care + orthopedic regarding further care 11/28 non-excisional debridement today wound vac changed today as per wound care continuing traditional wound vac at this point will need a total of 6 weeks of daptomycin as per ID d/c plan to SNF s/p I&D and removal of implants with insertion of antibiotic spacer on 11/14 POD # 12 on wound vac -changed today by Dr Ma form continuous irrigation mode to traditional wound vac setting w will need continued follow up at wound care clinic for wound care and wound vac management Synovial fluid culture growth MRSA Blood culture -staph aureus /MRSA recent blood cultures on 11/14/16 - no growth to date appreciate ID eval Recommend to Continue daptomycin for 6 weeks will need weekly CBC ,CMP , ESR , CPK check while on daptomycin . Will need continued ID follow up on discharge ECHO : no valvular vegetation noted PICC line placed will need arrangements for IV Daptomycin at SNF for 6 weeks updated by CM placement in SNF is difficult as IV Daptomycin being very expensive pt is allergic to Vancomycin D/w ID no effective option is available to adequately treat MRSA Sepsis / septic knee Case management updated LEFT LOWER EXT DVT 12/01 increased Coumadin dose to 4mg daily check INR in AM 11/29 now on Coumadin check INR in AM 11/28 Patient is on Coumadin now s/p IVC filter in place will check INR in AM monitor for any bleeding; low threshold to stop Coumadin due to bleeding risk as well as anemia USG of left lower ext : IMPRESSION: Acute deep venous thrombosis progressive from the prior study of 10/20/2016 pt already has IVC filter placed D/w Dr Hogan Vascular surgery -no other vascular intervention can be done as IVC filter is present already recommend to treat pt with therapeutic anticoagulation -if OK with Ortho team Case D/w Ortho pt was on Aspirin 81 mg PO BID for DVT prophylaxis -not effective -as progression of DVT seen in L lower ext USG Ok start pt on Coumadin ( pt is almost 2 weeks post op ) given chronic anemia , and required 4 units PRBC transfusion high risk for bleeding complication will avoid bridge therapy Coumadin low dose 2 mg daily , follow PT /INR goal to keep INR between 2-2.5 D/C Aspirin ACUTE BLOOD LOSS ANEMIA - s/p 4 units PRBCs 11/29 Hgb up to 8.6 will monitor and transfuse if < 7 or if symptomatic 11/28 Hgb is trending down to 8.1 Wound vac still draining blood s/p debridement on 11/28 now on Coumadin monitor H/H and INR may need to stop Coumadin and go back to aspirin -s/p transfused 4units PRBC's -Hgb stable follow CBC daily as pt is started on Coumadin HTN 12/01 blood pressure had been elevated metoprolol increased to 37.5mg BID 11/28 blood pressure labile, as it keeps trending upwards monitor and we may need to adjust the dose of medications LOW URINE OUT PUT : improved D/c IVF ATRIAL FIBRILLATION cont on Beta jodie DM2 -hold glipizide -can be resumed on discharge -insulin coverage -glycemic pharmacy consulted PRESSURE ULCERS Pressure ulcer of right medial buttock, stage 2, POA and Pressure ulcer of medial sacrum, stage 2, not POA -- Wound care consulted DVT PROPHYLAXIS: aspirin BID per Ortho DISPOSITION ; per Ortho will need SNF for continued PT/wound care /IV Abx Awaiting acceptance
[2016-12-01] MEDS: SENNA 8.6 MG TAB PO SCH (20:58)
[2016-12-01 21:10] VITALS: BP 159/86; PULSE 73
[2016-12-01 23:13] VITALS: BP 167/98; PULSE 71; TEMP 36.8; O2SAT 97
[2016-12-02] MEDS: TRAMADOL HCL 50 MG TAB PO PRN ×4 (00:36→19:40)
[2016-12-02] MEDS: ONDANSETRON INJ 2 MG/ML 2 ML VIAL IV PRN ×2 (00:36→12:11)
[2016-12-02 05:30] LABS: MEAN CELL VOLUME 89.7 fL (80-100); MEAN CORPUSCULAR HEMOGLOBIN 28.8 pg (25-34); MEAN CORPUSCULAR HGB CONC 32.1 g/dl (32-36); MEAN PLATELET VOLUME 8.2 fL (7.4-10.4); PLATELET COUNT 934 K/uL (130-400); RED BLOOD COUNT 3.12 M/uL (4.2-5.4); WHITE BLOOD COUNT 8.58 K/uL (4.8-10.8)
[2016-12-02 05:48] LABS: INR 1.1 (0.9-1.1); PROTHROMBIN TIME (PATIENT) 11.4 SECONDS (9.0-12.0)
[2016-12-02 06:08] LABS: BUN/CREATININE RATIO 12.9 (10-20); CALCIUM 8.6 mg/dl (8.5-10.1); CREATININE 0.5 mg/dl (0.60-1.20)
[2016-12-02 07:21] VITALS: BP 146/86; PULSE 69; TEMP 36.6; O2SAT 95
[2016-12-02 09:47] VITALS: BP 123/79; PULSE 67
[2016-12-02] MEDS: DOCUSATE SODIUM 100 MG CAP PO SCH ×2 (09:48→21:14)
[2016-12-02] MEDS: MULTIVITAMIN TAB PO SCH (09:48)
[2016-12-02] MEDS: METOPROLOL TARTRATE 25 MG TAB PO SCH ×2 (09:49→21:16)
[2016-12-02] MEDS: PANTOprazole SOD 40 MG TAB PO SCH (09:50)
[2016-12-02] MEDS: FERROUS GLUCONATE 324 MG TAB PO SCH ×3 (09:51→18:13)
[2016-12-02] MEDS: INSULIN ASPART 100 UNITS/ML 3 ML PEN SC SCH ×4 (09:56→21:22)
[2016-12-02] MEDS: INSULIN GLARGINE SOLOSTAR 100 UNITS/ML 3 ML PEN SC SCH ×2 (09:58→21:23)
[2016-12-02] MEDS: DAPTOmycin IV 600 MG in SODIUM CHLORIDE 0.9% 50ML 50 ML IV SCH (14:10)
[2016-12-02 15:00] VITALS: BP 138/84; PULSE 71; TEMP 36.6; O2SAT 96
--- NOTE | 2016-12-02 16:25 | Progress Note ---
Subjective Date of Service: Dec 02, 2016. Subjective Pt evaluation today including: conversation w/ patient, physical exam, lab review, review of studies, review of inpatient medication list Saw/examined the patient in room 382 She is c/o nausea today, states she vomited prior to lunch Now eating soup and tolerating it Pain controlled Anxious to get out of the hospital Review of Systems Constitutional: No chills, No fever Respiratory: No shortness of breath Cardiac: No chest pain, No edema, No palpitations Abdomen: + nausea, + vomiting, No diarrhea, No pain Musculoskeletal: + joint pain (controlled with medications) Heme: No abnormal bleeding/bruising Medications Current Inpatient Medications Medications (Trade) Dose Ordered Sig/Denisse Route Start Time Stop Time Status Last Admin Dose Admin Pantoprazole Sodium (Protonix Tab) 40 mg QAM PO 11/14/16 09:00 12/14/16 08:59 12/02/16 09:50 40 MG Acetaminophen (Tylenol Tab) 650 mg Q4H PRN PO 11/13/16 13:00 12/13/16 12:59 11/13/16 23:43 650 MG Docusate Sodium (coLACE CAP) 100 mg BID PO 11/13/16 21:00 12/13/16 20:59 12/02/16 09:48 100 MG Folic Acid (Folvite Tab) 1 mg DAILY PO 11/14/16 09:00 12/14/16 08:59 12/02/16 09:50 1 MG Tramadol HCl 50 mg 50 mg Q4H PRN PO 11/13/16 13:00 12/13/16 12:59 12/02/16 15:27 50 MG Daptomycin/Sodium Chloride (Cubicin IV/Nss 50ml) 62 ml @ 120 mls/hr Q24H IV 11/13/16 14:00 12/25/16 13:59 12/02/16 14:10 120 MLS/HR Glucose (Glucose 40% Gel) 15-30 GRAMS 15 GRAMS... UD PRN PO 11/13/16 14:30 12/13/16 14:29 Glucose (Glucose Chew Tab) 4-8 Tablets 4 Tabl... UD PRN PO 11/13/16 14:30 12/13/16 14:29 Dextrose (Dextrose 50% 50ML Syringe) 25-50ML OF 50% DW IV FOR... UD PRN IV 11/13/16 14:30 12/13/16 14:29 11/16/16 16:36 50 ML Glucagon (Glucagon Inj) 1 mg UD PRN SQ 11/13/16 14:30 12/13/16 14:29 Magnesium Hydroxide (Milk Of Magnesia Susp) 30 ml Q6H PRN PO 11/14/16 11:45 12/14/16 11:44 11/29/16 12:52 30 ML Bisacodyl (Dulcolax Supp) 10 mg DAILY PRN GA 11/14/16 11:45 12/14/16 11:44 Senna (Senokot Tab) 17.2 mg HS PO 11/14/16 21:00 12/14/16 20:59 12/01/16 20:58 17.2 MG Diphenhydramine HCl (Benadryl Inj) 25 mg Q8H PRN IV 11/14/16 11:45 12/14/16 11:44 Al Hydrox/Mg Hydrox/Simethicone (Maalox Max Susp) 15 ml Q4H PRN PO 11/14/16 11:45 12/14/16 11:44 Multivitamins (Multivitamin Tab) 1 tab QAM PO 11/15/16 09:00 12/15/16 08:59 12/02/16 09:48 1 TAB Ondansetron HCl (Zofran Inj) 4 mg Q6H PRN IV 11/14/16 11:45 12/14/16 11:44 12/02/16 12:11 4 MG Ferrous Gluconate (Ferrous Gluconate Tab) 324 mg TIDM PO 11/14/16 12:30 12/14/16 12:29 12/02/16 14:08 324 MG Miscellaneous Information (Consult Glycemic Management Pharmacy) 1 ea UD PRN N/A 11/14/16 21:30 12/14/16 21:29 Heparin Sodium (Porcine) (Heparin 10 Unit/ ml 5 ml Flush) 5 ml PRN PRN FLUSH 11/15/16 01:30 12/15/16 01:29 12/02/16 12:11 5 ML Insulin Aspart (novoLOG ASPART) SLIDING SCALE ACHS SC 11/15/16 16:00 12/15/16 15:59 12/02/16 14:10 1 UNITS Miconazole Nitrate (Desenex Powder) 1 appln BID PRN EXT 11/16/16 17:00 12/16/16 16:59 11/21/16 10:09 1 APPLN Metoprolol Tartrate (Lopressor Tab) 37.5 mg BID PO 11/30/16 21:00 12/30/16 20:59 12/02/16 09:49 37.5 MG Insulin Glargine (Lantus Solostar Pen) 9 unit BID SC 12/01/16 09:00 12/31/16 08:59 12/02/16 09:58 9 UNIT Collagenase (Santyl Oint) 1 appln UD EXT 12/01/16 13:00 12/31/16 12:59 Warfarin Sodium (Coumadin Tab) 4 mg DAILY@16 PO 12/02/16 16:00 01/01/17 15:59 Objective Vital Signs Date Time Temp Pulse Resp B/P Pulse Ox O2 Delivery O2 Flow Rate FiO2 12/02/16 16:06 Room Air 12/02/16 15:00 36.6 71 16 138/84 96 Room Air 12/02/16 09:47 67 123/79 12/02/16 08:30 Room Air 12/02/16 07:21 36.6 69 16 146/86 95 Room Air 12/02/16 00:30 Room Air 12/01/16 23:13 36.8 71 20 167/98 97 Room Air 12/01/16 21:10 73 159/86 12/01/16 16:52 Room Air Physical Exam General Appearance: no apparent distress Respiratory/Chest: chest non-tender, lungs clear, normal breath sounds, no respiratory distress, no accessory muscle use Cardiovascular: regular rate, rhythm, no murmur Abdomen: normal bowel sounds, non tender, soft Extremities: + pertinent finding (R BKA, L knee wound vac in place) Laboratory Results Last 24 Hours Test 12/01/16 17:09 12/01/16 20:57 12/02/16 05:22 12/02/16 08:09 Bedside Glucose 94 mg/dl 189 mg/dl 152 mg/dl White Blood Count 8.58 K/uL Red Blood Count 3.12 M/uL Hemoglobin 9.0 g/dL Hematocrit 28.0 % Mean Corpuscular Volume 89.7 fL Mean Corpuscular Hemoglobin 28.8 pg Mean Corpuscular Hemoglobin Concent 32.1 g/dl RDW Standard Deviation 49.5 fL RDW Coefficient of Variation 15.0 % Platelet Count 934 K/uL Mean Platelet Volume 8.2 fL Prothrombin Time 11.4 SECONDS Prothromb Time International Ratio 1.1 Sodium Level 133 mmol/L Potassium Level 4.0 mmol/L Chloride Level 97 mmol/L Carbon Dioxide Level 32 mmol/L Anion Gap 4.0 mmol/L Blood Urea Nitrogen 6 mg/dl Creatinine 0.50 mg/dl Est Creatinine Clear Calc Drug Dose 122.1 ml/min Estimated GFR () 116.1 Estimated GFR (Non- 100.2 BUN/Creatinine Ratio 12.9 Random Glucose 127 mg/dl Calcium Level 8.6 mg/dl Magnesium Level 2.0 mg/dl Test 12/02/16 12:03 Bedside Glucose 99 mg/dl Assessment and Plan SEPSIS with SEPTIC ARTHRITIS LEFT KNEE MRSA BACTEREMIA 12/01 wound vac has been replaced today ID = IV dapto x 6 weeks wound care and orthopedic on board for further management 11/29 IV dapto x 6 weeks wound vac wound care + orthopedic regarding further care 11/28 non-excisional debridement today wound vac changed today as per wound care continuing traditional wound vac at this point will need a total of 6 weeks of daptomycin as per ID d/c plan to SNF s/p I&D and removal of implants with insertion of antibiotic spacer on 11/14 POD # 12 on wound vac -changed today by Dr Ma form continuous irrigation mode to traditional wound vac setting w will need continued follow up at wound care clinic for wound care and wound vac management Synovial fluid culture growth MRSA Blood culture -staph aureus /MRSA recent blood cultures on 11/14/16 - no growth to date appreciate ID eval Recommend to Continue daptomycin for 6 weeks will need weekly CBC ,CMP , ESR , CPK check while on daptomycin . Will need continued ID follow up on discharge ECHO : no valvular vegetation noted PICC line placed will need arrangements for IV Daptomycin at [facility] for 6 weeks updated by CM placement in SNF is difficult as IV Daptomycin being very expensive pt is allergic to Vancomycin D/w ID no effective option is available to adequately treat MRSA Sepsis / septic knee Case management updated LEFT LOWER EXT DVT 12/02 4mg of Coumadin tonight 12/01 increased Coumadin dose to 4mg daily check INR in AM 11/29 now on Coumadin check INR in AM 11/28 Patient is on Coumadin now s/p IVC filter in place will check INR in AM monitor for any bleeding; low threshold to stop Coumadin due to bleeding risk as well as anemia USG of left lower ext : IMPRESSION: Acute deep venous thrombosis progressive from the prior study of 10/20/2016 pt already has IVC filter placed D/w Dr Hogan Vascular surgery -no other vascular intervention can be done as IVC filter is present already recommend to treat pt with therapeutic anticoagulation -if OK with Ortho team Case D/w Ortho pt was on Aspirin 81 mg PO BID for DVT prophylaxis -not effective -as progression of DVT seen in L lower ext USG Ok start pt on Coumadin ( pt is almost 2 weeks post op ) given chronic anemia , and required 4 units PRBC transfusion high risk for bleeding complication will avoid bridge therapy Coumadin low dose 2 mg daily , follow PT /INR goal to keep INR between 2-2.5 D/C Aspirin ACUTE BLOOD LOSS ANEMIA - s/p 4 units PRBCs 12/02 H/H stable 11/29 Hgb up to 8.6 will monitor and transfuse if < 7 or if symptomatic 11/28 Hgb is trending down to 8.1 Wound vac still draining blood s/p debridement on 11/28 now on Coumadin monitor H/H and INR may need to stop Coumadin and go back to aspirin -s/p transfused 4units PRBC's -Hgb stable follow CBC daily as pt is started on Coumadin HTN 12/02 blood pressure improved, continue to give metoprolol 37.5mg BID 12/01 blood pressure had been elevated metoprolol increased to 37.5mg BID 11/28 blood pressure labile, as it keeps trending upwards monitor and we may need to adjust the dose of medications LOW URINE OUT PUT : improved D/c IVF ATRIAL FIBRILLATION cont on Beta jodie DM2 -hold glipizide -can be resumed on discharge -insulin coverage -glycemic pharmacy consulted PRESSURE ULCERS Pressure ulcer of right medial buttock, stage 2, POA and Pressure ulcer of medial sacrum, stage 2, not POA -- Wound care consulted DVT PROPHYLAXIS: aspirin BID per Ortho DISPOSITION ; per Ortho will need SNF for continued PT/wound care /IV Abx Awaiting acceptance
[2016-12-02] MEDS: WARFARIN SOD 4 MG TAB PO SCH (16:37)
--- NOTE | 2016-12-02 18:54 | Orthopedic Progress Note ---
Orthopedic Progress Note Date of Service Dec 02, 2016. Subjective Additional Notes: Pt awake, alert. States that she had some burning sensation in her left foot today. Had the waffle boot removed and feels better. Otherwise, no new complaints this evening. Objective Prevena functioning and has approx 200ml of drainage in collection unit. Right BKA site benign. No changes in left foot. Date Time Temp Pulse Resp B/P Pulse Ox O2 Delivery O2 Flow Rate FiO2 12/02/16 16:06 Room Air 12/02/16 15:00 36.6 71 16 138/84 96 Room Air 12/02/16 09:47 67 123/79 12/02/16 08:30 Room Air 12/02/16 07:21 36.6 69 16 146/86 95 Room Air 12/02/16 00:30 Room Air 12/01/16 23:13 36.8 71 20 167/98 97 Room Air 12/01/16 21:10 73 159/86 Laboratory Results 24 Hours: Test 12/02/16 05:22 Hematocrit 28.0 % Hemoglobin 9.0 g/dL Prothromb Time International Ratio 1.1 Prothrombin Time 11.4 SECONDS Assessment & Plan Assessment: SEPTIC ARTHRITIS LEFT TOTAL KNEE ARTHROPLASTY - s/p I&D, removal total knee implant, placement of antibiotic spacer. Wound vac placed on left knee. - Will keep sutures in the left knee for now. Right BKA sutures will remain for total of [address] Car. (Plan for those to come out this Thursday) -ID Consult, currently on Daptomycin. -awaiting placement, SS to discuss with ID alternatives to Daptomycin - Photos of wound taken today by Wound care nursing and sent to Dr Ma. Will await his plans. Dr Sifuentes to discuss case with Dr Ma. - Discussed the case with pt and family that is present. Pt understands that if the infection is not eradicated, that she may need an AKA. DR SIFUENTES TO SEE PATIENT THURSDAY TO DISCUSS WOUND ISSUES. HOPING TO HAVE PLANS FINALIZED TOMORROW. LLE DVT - Coumadin started : IVC filter placed AFib DM2 HTN (1) Infection of total left knee replacement (2) MRSA (methicillin resistant Staphylococcus aureus) septicemia (3) Leukocytosis Inhouse Planning Pain Management: Ultram, PO Tylenol, Oxy IR DVT Prophylaxis: TEDs, SCDs, Coumadin, ASA, other (IVC Filter) Discharge Planning Discharge Planning: residential facility (Hopefully SNF if wound vac changed to traditional vac tomorrow. Will need IV dapto 6 weeks. )
[2016-12-02 21:13] VITALS: BP 145/83; PULSE 75
[2016-12-02] MEDS: SENNA 8.6 MG TAB PO SCH (21:16)
[2016-12-02] MEDS: MAGNESIUM HYDROXIDE SUSP 30 ML UDC PO PRN (21:17)
[2016-12-02 22:55] VITALS: BP 154/87; PULSE 77; TEMP 36.5; O2SAT 94
[2016-12-03 06:13] LABS: HEMATOCRIT 28.3 % (37-47); MEAN CELL VOLUME 89.3 fL (80-100); MEAN CORPUSCULAR HGB CONC 32.5 g/dl (32-36); MEAN PLATELET VOLUME 8.3 fL (7.4-10.4); PLATELET COUNT 964 K/uL (130-400); RED BLOOD COUNT 3.17 M/uL (4.2-5.4); WHITE BLOOD COUNT 9.23 K/uL (4.8-10.8)
[2016-12-03 06:23] LABS: INR 1.1 (0.9-1.1)
[2016-12-03 06:48] LABS: BUN/CREATININE RATIO 14.2 (10-20); CALCIUM 8.7 mg/dl (8.5-10.1); CREATININE 0.53 mg/dl (0.60-1.20)
[2016-12-03 07:23] VITALS: BP 157/89; PULSE 75; TEMP 36.7; O2SAT 94
[2016-12-03] MEDS: DOCUSATE SODIUM 100 MG CAP PO SCH ×2 (09:35→20:42)
[2016-12-03] MEDS: PANTOprazole SOD 40 MG TAB PO SCH (09:35)
[2016-12-03] MEDS: FERROUS GLUCONATE 324 MG TAB PO SCH ×3 (09:35→18:50)
[2016-12-03] MEDS: MULTIVITAMIN TAB PO SCH (09:36)
[2016-12-03] MEDS: MAGNESIUM HYDROXIDE SUSP 30 ML UDC PO PRN (09:37)
[2016-12-03] MEDS: TRAMADOL HCL 50 MG TAB PO PRN ×3 (09:37→20:38)
[2016-12-03 09:41] VITALS: BP 144/84; PULSE 79
[2016-12-03] MEDS: INSULIN ASPART 100 UNITS/ML 3 ML PEN SC SCH ×4 (09:46→20:46)
[2016-12-03] MEDS: INSULIN GLARGINE SOLOSTAR 100 UNITS/ML 3 ML PEN SC SCH ×2 (09:47→20:47)
[2016-12-03] MEDS: ONDANSETRON INJ 2 MG/ML 2 ML VIAL IV PRN (11:20)
[2016-12-03] MEDS: METOPROLOL TARTRATE 25 MG TAB PO SCH ×2 (11:20→20:43)
--- NOTE | 2016-12-03 14:25 | PROGRESS NOTE ---
DATE: 12/03/2016 INPATIENT PROGRESS NOTE SUBJECTIVE: The patient is seen today for reevaluation of a postoperative wound to the left knee in the face of underlying infection. The patient states that she has been nauseated and vomited twice today, but otherwise had no specific complaints regarding her left knee, which she states the pain somewhat reduced. OBJECTIVE: The patient's vital signs were reviewed and found to be unremarkable. The patient is afebrile. The site today shows the persistent blackened eschar on the edges, although there is some decreased size placed. There is increased granulation tissue in the base, there still is purulent drainage with compression along the medial wall of the knee. The incision site proximal to this still shows an area of eschar formation with some marginal slough noted. No active drainage from this site. ASSESSMENT: Postoperative wound, left knee in the face of underlying infection, stable. PLAN: At this time, the site required no additional debridement. The site will continue to be managed with a wound VAC, black foam 150 mm of pressure to attempt to remove more of the drainage from the site. Wound VAC change will be on a Thursday, Thursday, Thursday. The patient will be reevaluated during her hospitalization as needed and follow up as warranted on the patient's side.
[2016-12-03] MEDS: DAPTOmycin IV 600 MG in SODIUM CHLORIDE 0.9% 50ML 50 ML IV SCH (14:37)
--- NOTE | 2016-12-03 14:40 | PROGRESS NOTE ---
DATE: 12/03/2016 DATE: 12/03/2016. SUBJECTIVE: Today the patient was examined at bedside along with wound care. The patient has 2 small areas of granulation along the superior most inferior aspect of the wound, but majority of it still significant necrosis. Drainage is less than what it had been coming primarily from the lateral area under the eschar. I do not believe that she is a candidate for any type of wound coverage at this point, would recommend along with wound care continued wound VAC. They are going to increase the pressure on this. I have talked to the patient about the possibility of amputation. I have also discussed the possibility of having Dr. Lucero taking a look even though I do not think there is anything she probably would be able to do at this point, maybe at some point down the road should the drainage stop and better granulation tissue form. She then may be an option for limb salvage by wound cover. At this point though I would recommend continuing wound management, wound care and will follow along with regard to drainage. At this point I do not think there is anything further surgical to offer at the current time.
[2016-12-03 15:15] VITALS: BP 143/81; PULSE 71; TEMP 36.6; O2SAT 95
[2016-12-03] MEDS: WARFARIN SOD 4 MG TAB PO SCH (16:15)
--- NOTE | 2016-12-03 17:01 | CONSULTATION REPORT ---
DATE OF CONSULTATION: 12/03/2016 DATE OF CONSULTATION: 12/03/2016. REASON FOR CONSULTATION: Infected left knee wound. HISTORY OF PRESENT ILLNESS: The patient is a 66-year-old female who has been hospitalized since 11/13/2016 for this admission. She had a knee replacement on the left in April [address] Ibarra. She did well from this, but then recently developed infection on her right foot having had partial amputation of the 2nd, 3rd and 4th toes in September of this year. She was admitted in October for increased left knee pain. At that point, she was noted to have a septic left knee as well as infected right foot. She then underwent below knee amputation on the right leg. Left knee incision and drainage was performed followed by a secondary procedure on 10/24/2016 for removal of the hardware and poly exchange. She has since then had a prolonged hospital course including need for intravenous daptomycin for MRSA infection, and postoperative anemia as well as extensive and progress of DVT. She has had to be cava filter placed. She has had total removal of her implant and placement on antibiotic spacer, which was performed on 11/14/2016. The wound care center and has been involved in her care and an irrigating wound VAC has been placed. This has been transpositioned to Santyl with a regular VAC with black foam at 150. She continues on IV antibiotics. There is discussion of possible above knee amputation of the left leg due to this infection and I am asked to provide input regarding possible options for wound coverage. Of note, she was admitted to the intensive care unit during this admission for sepsis related to this. PAST MEDICAL HISTORY: Significant for peripheral arterial disease, bilateral lower extremity DVT, history of sepsis, Afib, type 2 diabetes. ALLERGIES: RASHAAD INHIBITORS, LIPITOR, INVANZ, ZOSYN, SITAGLIPTIN AND VANCOMYCIN. PAST SURGICAL HISTORY: Is as noted above. CURRENT MEDICATIONS: Coumadin 4 mg daily. Santyl ointment to the wound, Lantus, miconazole, Lopressor, NovoLog, multivitamin, Senokot, milk of magnesia, Dulcolax, Benadryl, Zofran, Protonix, folic acid, daptomycin, tramadol, Tylenol. FAMILY HISTORY: Noncontributory. SOCIAL HISTORY: The patient was residing at [facility] for rehabilitation until this most recent admission. PHYSICAL EXAMINATION: VITAL SIGNS: Today show blood pressure 143/81, pulse 71. She is afebrile, 95% on room air. EXTREMITIES: There is a right lower extremity BKA with sutures intact. The majority of the flap does appear viable, although there is some scabbing along the incision. Left lower extremity shows a wound VAC intact. No palpable dorsalis pedis or posterior tibial pulses. Foot is pale and cool to touch. Photographs of the wound were examined today and there is some granulation both proximally and medially within the larger wound with central necrosis as well as peripheral necrosis. There is also necrosis of the distal portion of the incision. There are Optifoam dressings in place on the left foot covering pressure ulcerations. Lower extremity ultrasound was reviewed and shows acute and extensive DVT which is progressive from 11/26/2016. The prior study from October 2016 shows no flow in the anterior tibial and dorsalis pedis artery consistent with occlusion, no flow in the mid to distal peroneal artery and proximal left posterior tibial artery with trace monophasic flow within the proximal peroneal and distal posterior tibial artery. White blood cell count today is 9.2, hemoglobin 9.2, last hemoglobin A1c reported 10/20/2016 7.7, albumin range is between 1.2 and 1.5. No prealbumin available. IMPRESSION: Left knee wound status post infected left total knee arthroplasty in a patient with diabetes and peripheral arterial disease. PLAN: As the wound VAC had just been replaced prior to my assessment of this patient I will return on the for the wound VAC change. This was discussed with Juanita Davis and I will be available to examine the wound. I recommend checking a prealbumin to assess her nutritional status as this will be a major barrier to healing if her albumin is accurate. While there are flap options available such as medial gastroc flap which would provide some coverage this area, this is unlikely to be effective in a patient with significant peripheral vascular disease. At this point in time, I would recommend continuing the wound VAC and if we can achieve adequate granulation tissue then could consider placement of a split thickness graft. If there is progression of the wounds on the left foot as well as persistent infection in the left knee then it might be reasonable to consider above knee amputation in that case. I will assess the wound on Thursday and make further recommendations.
[2016-12-03 18:12] LABS: PREALBUMIN 10.8 mg/dl (20-40)
--- NOTE | 2016-12-03 18:36 | Progress Note ---
Subjective Date of Service: Dec 03, 2016. Subjective Pt evaluation today including: conversation w/ patient, physical exam, lab review, review of studies, review of inpatient medication list Saw/examined the patient in room 382 She has some nausea, but improving tolerating diet Pain controlled Review of Systems Constitutional: + weakness, No chills, No fever Respiratory: No shortness of breath Cardiac: No chest pain Abdomen: + nausea (improving), No constipation, No diarrhea, No pain, No vomiting Musculoskeletal: + joint pain (controlled with medications) Heme: No abnormal bleeding/bruising Medications Current Inpatient Medications Medications (Trade) Dose Ordered Sig/Denisse Route Start Time Stop Time Status Last Admin Dose Admin Pantoprazole Sodium (Protonix Tab) 40 mg QAM PO 11/14/16 09:00 12/14/16 08:59 12/03/16 09:35 40 MG Acetaminophen (Tylenol Tab) 650 mg Q4H PRN PO 11/13/16 13:00 12/13/16 12:59 11/13/16 23:43 650 MG Docusate Sodium (coLACE CAP) 100 mg BID PO 11/13/16 21:00 12/13/16 20:59 12/03/16 09:35 100 MG Folic Acid (Folvite Tab) 1 mg DAILY PO 11/14/16 09:00 12/14/16 08:59 12/03/16 09:35 1 MG Tramadol HCl 50 mg 50 mg Q4H PRN PO 11/13/16 13:00 12/13/16 12:59 12/03/16 14:37 50 MG Daptomycin/Sodium Chloride (Cubicin IV/Nss 50ml) 62 ml @ 120 mls/hr Q24H IV 11/13/16 14:00 12/25/16 13:59 12/03/16 14:37 120 MLS/HR Glucose (Glucose 40% Gel) 15-30 GRAMS 15 GRAMS... UD PRN PO 11/13/16 14:30 12/13/16 14:29 Glucose (Glucose Chew Tab) 4-8 Tablets 4 Tabl... UD PRN PO 11/13/16 14:30 12/13/16 14:29 Dextrose (Dextrose 50% 50ML Syringe) 25-50ML OF 50% DW IV FOR... UD PRN IV 11/13/16 14:30 12/13/16 14:29 4/9/17 16:36 50 ML Glucagon (Glucagon Inj) 1 mg UD PRN SQ 11/13/16 14:30 12/13/16 14:29 Magnesium Hydroxide (Milk Of Magnesia Susp) 30 ml Q6H PRN PO 11/14/16 11:45 12/14/16 11:44 12/03/16 09:37 30 ML Bisacodyl (Dulcolax Supp) 10 mg DAILY PRN [place] 11/14/16 11:45 12/14/16 11:44 Senna (Senokot Tab) 17.2 mg HS PO 11/14/16 21:00 12/14/16 20:59 12/02/16 21:16 17.2 MG Diphenhydramine HCl (Benadryl Inj) 25 mg Q8H PRN IV 11/14/16 11:45 12/14/16 11:44 Al Hydrox/Mg Hydrox/Simethicone (Maalox Max Susp) 15 ml Q4H PRN PO 11/14/16 11:45 12/14/16 11:44 Multivitamins (Multivitamin Tab) 1 tab QAM PO 11/15/16 09:00 12/15/16 08:59 12/03/16 09:36 1 TAB Ondansetron HCl (Zofran Inj) 4 mg Q6H PRN IV 11/14/16 11:45 12/14/16 11:44 12/03/16 11:20 4 MG Ferrous Gluconate (Ferrous Gluconate Tab) 324 mg TIDM PO 11/14/16 12:30 12/14/16 12:29 12/03/16 09:35 324 MG Miscellaneous Information (Consult Glycemic Management Pharmacy) 1 ea UD PRN N/A 11/14/16 21:30 12/14/16 21:29 Heparin Sodium (Porcine) (Heparin 10 Unit/ ml 5 ml Flush) 5 ml PRN PRN FLUSH 11/15/16 01:30 12/15/16 01:29 12/03/16 16:54 5 ML Insulin Aspart (novoLOG ASPART) SLIDING SCALE ACHS SC 11/15/16 16:00 12/15/16 15:59 12/03/16 14:39 5 UNITS Miconazole Nitrate (Desenex Powder) 1 appln BID PRN EXT 11/16/16 17:00 12/16/16 16:59 11/21/16 10:09 1 APPLN Metoprolol Tartrate (Lopressor Tab) 37.5 mg BID PO 11/30/16 21:00 12/30/16 20:59 12/03/16 11:20 37.5 MG Insulin Glargine (Lantus Solostar Pen) 9 unit BID SC 12/01/16 09:00 12/31/16 08:59 12/03/16 09:47 9 UNIT Collagenase (Santyl Oint) 1 appln UD EXT 12/01/16 13:00 12/31/16 12:59 Warfarin Sodium (Coumadin Tab) 4 mg DAILY@16 PO 12/02/16 16:00 01/01/17 15:59 12/03/16 16:15 4 MG Objective Vital Signs Date Time Temp Pulse Resp B/P Pulse Ox O2 Delivery O2 Flow Rate FiO2 12/03/16 15:30 Room Air 12/03/16 15:15 36.6 71 18 143/81 95 Room Air 12/03/16 09:41 79 144/84 12/03/16 07:50 Room Air 12/03/16 07:23 36.7 75 18 157/89 94 Room Air 12/03/16 00:40 Room Air 12/02/16 22:55 36.5 77 17 154/87 94 Room Air 12/02/16 21:13 75 145/83 Physical Exam General Appearance: no apparent distress Respiratory/Chest: chest non-tender, lungs clear, normal breath sounds, no respiratory distress, no accessory muscle use Cardiovascular: regular rate, rhythm, no edema, no murmur Extremities: + pertinent finding (R BKA; L wound vac) Laboratory Results Last 24 Hours Test 12/02/16 20:43 12/03/16 05:45 12/03/16 08:23 12/03/16 12:03 Bedside Glucose 116 mg/dl 135 mg/dl 175 mg/dl White Blood Count 9.23 K/uL Red Blood Count 3.17 M/uL Hemoglobin 9.2 g/dL Hematocrit 28.3 % Mean Corpuscular Volume 89.3 fL Mean Corpuscular Hemoglobin 29.0 pg Mean Corpuscular Hemoglobin Concent 32.5 g/dl RDW Standard Deviation 49.6 fL RDW Coefficient of Variation 15.1 % Platelet Count 964 K/uL Mean Platelet Volume 8.3 fL Prothrombin Time 12.0 SECONDS Prothromb Time International Ratio 1.1 Sodium Level 134 mmol/L Potassium Level 4.0 mmol/L Chloride Level 96 mmol/L Carbon Dioxide Level 31 mmol/L Anion Gap 7.0 mmol/L Blood Urea Nitrogen 8 mg/dl Creatinine 0.53 mg/dl Est Creatinine Clear Calc Drug Dose 115.2 ml/min Estimated GFR () 113.9 Estimated GFR (Non- 98.2 BUN/Creatinine Ratio 14.2 Random Glucose 121 mg/dl Calcium Level 8.7 mg/dl Test 12/03/16 16:59 12/03/16 17:12 Albumin 1.8 gm/dl Prealbumin 10.8 mg/dl Bedside Glucose 111 mg/dl Assessment and Plan SEPSIS with SEPTIC ARTHRITIS LEFT KNEE MRSA BACTEREMIA 12/03 continue Dapto Wound vac changed M-W-F no surgical intervention at this time 12/01 wound vac has been replaced today ID = IV dapto x 6 weeks wound care and orthopedic on board for further management 11/29 IV dapto x 6 weeks wound vac wound care + orthopedic regarding further care 11/28 non-excisional debridement today wound vac changed today as per wound care continuing traditional wound vac at this point will need a total of 6 weeks of daptomycin as per ID d/c plan to SNF s/p I&D and removal of implants with insertion of antibiotic spacer on 11/14 POD # 12 on wound vac -changed today by Dr Ma form continuous irrigation mode to traditional wound vac setting w will need continued follow up at wound care clinic for wound care and wound vac management Synovial fluid culture growth MRSA Blood culture -staph aureus /MRSA recent blood cultures on 11/14/16 - no growth to date appreciate ID eval Recommend to Continue daptomycin for 6 weeks will need weekly CBC ,CMP , ESR , CPK check while on daptomycin . Will need continued ID follow up on discharge ECHO : no valvular vegetation noted PICC line placed will need arrangements for IV Daptomycin at [facility] for 6 weeks updated by CM placement in SNF is difficult as IV Daptomycin being very expensive pt is allergic to Vancomycin D/w ID no effective option is available to adequately treat MRSA Sepsis / septic knee Case management updated LEFT LOWER EXT DVT 12/03 4mg of Coumadin recheck INR, increase Coumadin dose on 12/04 12/02 4mg of Coumadin tonight 12/01 increased Coumadin dose to 4mg daily check INR in AM 11/29 now on Coumadin check INR in AM 11/28 Patient is on Coumadin now s/p IVC filter in place will check INR in AM monitor for any bleeding; low threshold to stop Coumadin due to bleeding risk as well as anemia USG of left lower ext : IMPRESSION: Acute deep venous thrombosis progressive from the prior study of 10/20/2016 pt already has IVC filter placed D/w Dr Hogan Vascular surgery -no other vascular intervention can be done as IVC filter is present already recommend to treat pt with therapeutic anticoagulation -if OK with Ortho team Case D/w Ortho pt was on Aspirin 81 mg PO BID for DVT prophylaxis -not effective -as progression of DVT seen in L lower ext USG Ok start pt on Coumadin ( pt is almost 2 weeks post op ) given chronic anemia , and required 4 units PRBC transfusion high risk for bleeding complication will avoid bridge therapy Coumadin low dose 2 mg daily , follow PT /INR goal to keep INR between 2-2.5 D/C Aspirin ACUTE BLOOD LOSS ANEMIA - s/p 4 units PRBCs 12/02 H/H stable 11/29 Hgb up to 8.6 will monitor and transfuse if < 7 or if symptomatic 11/28 Hgb is trending down to 8.1 Wound vac still draining blood s/p debridement on 11/28 now on Coumadin monitor H/H and INR may need to stop Coumadin and go back to aspirin -s/p transfused 4units PRBC's -Hgb stable follow CBC daily as pt is started on Coumadin HTN 12/02 blood pressure improved, continue to give metoprolol 37.5mg BID 12/01 blood pressure had been elevated metoprolol increased to 37.5mg BID 11/28 blood pressure labile, as it keeps trending upwards monitor and we may need to adjust the dose of medications LOW URINE OUT PUT : improved D/c IVF ATRIAL FIBRILLATION cont on Beta jodie DM2 -hold glipizide -can be resumed on discharge -insulin coverage -glycemic pharmacy consulted PRESSURE ULCERS Pressure ulcer of right medial buttock, stage 2, POA and Pressure ulcer of medial sacrum, stage 2, not POA -- Wound care consulted DVT PROPHYLAXIS: aspirin BID per Ortho DISPOSITION ; per Ortho will need SNF for continued PT/wound care /IV Abx Awaiting acceptance
[2016-12-03 20:41] VITALS: BP 127/76; PULSE 70
[2016-12-03] MEDS: SENNA 8.6 MG TAB PO SCH (20:44)
[2016-12-03 23:05] VITALS: BP 149/80; PULSE 67; TEMP 36.9; O2SAT 95
[2016-12-04 06:22] LABS: MEAN CELL VOLUME 89.8 fL (80-100); MEAN CORPUSCULAR HEMOGLOBIN 28.5 pg (25-34); MEAN CORPUSCULAR HGB CONC 31.7 g/dl (32-36); MEAN PLATELET VOLUME 8.4 fL (7.4-10.4); PLATELET COUNT 991 K/uL (130-400); RED BLOOD COUNT 3.23 M/uL (4.2-5.4); WHITE BLOOD COUNT 9.03 K/uL (4.8-10.8)
[2016-12-04 06:32] LABS: BUN/CREATININE RATIO 15.8 (10-20); CALCIUM 8.6 mg/dl (8.5-10.1); CREATININE 0.56 mg/dl (0.60-1.20); INR 1.2 (0.9-1.1); POTASSIUM 3.8 mmol/L (3.5-5.1); PROTHROMBIN TIME (PATIENT) 13.3 SECONDS (9.0-12.0)
[2016-12-04 07:28] VITALS: BP 159/84; PULSE 71; TEMP 36.5; O2SAT 96
[2016-12-04] MEDS: FERROUS GLUCONATE 324 MG TAB PO SCH ×3 (08:30→19:42)
[2016-12-04 09:45] VITALS: BP 157/90; PULSE 72
[2016-12-04] MEDS: TRAMADOL HCL 50 MG TAB PO PRN ×3 (09:53→22:04)
[2016-12-04] MEDS: ONDANSETRON INJ 2 MG/ML 2 ML VIAL IV PRN ×2 (09:53→21:51)
[2016-12-04] MEDS: DOCUSATE SODIUM 100 MG CAP PO SCH ×2 (09:54→21:51)
[2016-12-04] MEDS: METOPROLOL TARTRATE 25 MG TAB PO SCH ×2 (09:54→21:54)
[2016-12-04] MEDS: MULTIVITAMIN TAB PO SCH (09:55)
[2016-12-04] MEDS: PANTOprazole SOD 40 MG TAB PO SCH (09:55)
[2016-12-04] MEDS: INSULIN ASPART 100 UNITS/ML 3 ML PEN SC SCH ×4 (10:06→22:00)
[2016-12-04] MEDS: INSULIN GLARGINE SOLOSTAR 100 UNITS/ML 3 ML PEN SC SCH ×2 (10:08→22:01)
--- NOTE | 2016-12-04 13:08 | Pharmacy Progress Note ---
Pharmacy Glycemic Sign Off Nt Date of Service Dec 04, 2016. Assessment & Plan ASSESSMENT: * Pharmacy was consulted by on 11/13/16 for glycemic control and to write orders per [facility] inpatient glycemic control protocol. * Patient has been requiring roughly 30 units of insulin per day for adequate glycemic control * BSGs ranging 110 to 190 mg/dl * Regimen has only required minor adjustments over the past 4days to achieve this level of control * Do not anticipate further changes in patient status that would quickly deteriorate glycemic control (i.e. patient to be NPO for upcoming procedure, steroids tapering, starting tube feedings, etc). * Please see recommendations for outpatient antidiabetic regimen below. PLAN FOR INPATIENT GLYCEMIC CONTROL: No changes needed to current regimen. * Continue basal insulin with Lantus 9 units SQ BID * Continue NovoLog per scale ACHS/Q6hrs while NPO * Goal range = 110 - 140 mg/dl * CF = 20 mg/dl/unit * CR = 1 unit for ever 8 g CHO consumed * A1c added to discharge instructions to be communicated to PCP. * Pharmacy is signing off of glycemic consult and will no longer be making adjustments to inpatient regimen. Please feel free to re-consult if needed. Thank you. DISCHARGE RECOMMENDATIONS: * A1c 7.7 % on 10/2016 * Resume outpatient DM regimen. Patient already receiving BID Lantus so will be able to easily transition to her BID Lantus as an outpatient
[2016-12-04] MEDS: DAPTOmycin IV 600 MG in SODIUM CHLORIDE 0.9% 50ML 50 ML IV SCH (14:11)
[2016-12-04 15:22] VITALS: BP 142/81; PULSE 69; TEMP 36.6; O2SAT 97
[2016-12-04] MEDS: WARFARIN SOD 4 MG TAB PO SCH (16:32)
--- NOTE | 2016-12-04 17:35 | Orthopedic Progress Note ---
Orthopedic Progress Note Date of Service Dec 04, 2016. Subjective Additional Notes: Feeling ok today. No new complaints. Objective A&O x3 Left knee wound vac on and functioning well. Drainage container with approx 250ml. Foot cool which has been the norm. Moving ankle and toes well. Neuropathy about the same but having burning pain in the foot and somewhat in the lower leg off and on. Right BKA wound benign. Date Time Temp Pulse Resp B/P Pulse Ox O2 Delivery O2 Flow Rate FiO2 12/04/16 15:22 36.6 69 16 142/81 97 Room Air 12/04/16 09:45 72 157/90 12/04/16 07:40 Room Air 12/04/16 07:28 36.5 71 18 159/84 96 Room Air 12/03/16 23:55 Room Air 12/03/16 23:05 36.9 67 15 149/80 95 Room Air 12/03/16 20:41 70 127/76 Laboratory Results 24 Hours: Test 12/04/16 05:25 Hematocrit 29.0 % Hemoglobin 9.2 g/dL Prothromb Time International Ratio 1.2 Prothrombin Time 13.3 SECONDS Assessment & Plan Assessment: SEPTIC ARTHRITIS LEFT TOTAL KNEE ARTHROPLASTY - s/p I&D, removal total knee implant, placement of antibiotic spacer. Wound vac placed on left knee. - Will keep sutures in the left knee for now. Right BKA sutures to be removed 12/06/16 -ID Consult, currently on Daptomycin. -awaiting possible placement but doubtful due to cost of Daptomycin - plan for left knee is to continue the wound vac for now. Pressure increased to 150ml. Dr Lucero to look at wound tomorrow to provide any insight on possibility of future closure. Pt understands that goal is to try and keep her LLE but knows that AKA could be possible if infection not stopped. LLE DVT - Coumadin : IVC filter placed AFib DM2 HTN (1) Infection of total left knee replacement (2) MRSA (methicillin resistant Staphylococcus aureus) septicemia (3) Leukocytosis Inhouse Planning Pain Management: Ultram, PO Tylenol DVT Prophylaxis: TEDs, SCDs, Coumadin, other (IVC Filter) Discharge Planning Discharge Planning: [facility] facility
[2016-12-04] MEDS: SENNA 8.6 MG TAB PO SCH (21:51)
[2016-12-04 23:00] VITALS: BP 147/83; PULSE 77; TEMP 36.5; O2SAT 98
[2016-12-05 07:19] VITALS: BP 144/84; PULSE 65; TEMP 36.8; O2SAT 97
[2016-12-05] MEDS: ONDANSETRON INJ 2 MG/ML 2 ML VIAL IV PRN ×2 (08:18→17:02)
[2016-12-05] MEDS: TRAMADOL HCL 50 MG TAB PO PRN ×2 (08:18→13:28)
[2016-12-05] MEDS: PANTOprazole SOD 40 MG TAB PO SCH (08:28)
[2016-12-05] MEDS: FERROUS GLUCONATE 324 MG TAB PO SCH ×3 (08:28→17:45)
[2016-12-05] MEDS: MULTIVITAMIN TAB PO SCH ×2 (08:28→09:00)
[2016-12-05] MEDS: DOCUSATE SODIUM 100 MG CAP PO SCH ×3 (08:28→22:24)
[2016-12-05] MEDS: METOPROLOL TARTRATE 25 MG TAB PO SCH ×2 (08:29→22:25)
[2016-12-05] MEDS: INSULIN GLARGINE SOLOSTAR 100 UNITS/ML 3 ML PEN SC SCH ×2 (08:37→22:31)
[2016-12-05] MEDS: INSULIN ASPART 100 UNITS/ML 3 ML PEN SC SCH ×4 (08:37→21:00)
--- NOTE | 2016-12-05 10:13 | Orthopedic Progress Note ---
Orthopedic Progress Note Date of Service Dec 05, 2016. Subjective Additional Notes: Pt awake, alert. Has a basin at bedside with emesis in it. States when she moves around in bed too quickly, it causes her to get lightheaded and nausea ensues. No other complaints this AM. Objective A&O x3, toes mobile (LLE) No changes in would vac. Continues to collect drainage. R BKA wound benign. Date Time Temp Pulse Resp B/P Pulse Ox O2 Delivery O2 Flow Rate FiO2 12/05/16 07:19 36.8 65 16 144/84 97 Room Air 12/05/16 00:00 Room Air 12/04/16 23:00 36.5 77 17 147/83 98 Room Air 12/04/16 16:15 Room Air 12/04/16 15:22 36.6 69 16 142/81 97 Room Air Assessment & Plan Assessment: SEPTIC ARTHRITIS LEFT TOTAL KNEE ARTHROPLASTY - Appreciate Medical Management per [facility] service - s/p I&D, removal total knee implant, placement of antibiotic spacer. Wound vac placed on left knee. - Will keep sutures in the left knee for now. Right BKA sutures to be removed 12/06/16 - Appreciate ID Consult, currently on Daptomycin. -awaiting possible placement but doubtful due to cost of Daptomycin - plan for left knee is to continue the wound vac for now. Pressure increased to 150ml. Dr Lucero to look at wound today to provide any insight on possibility of future closure. Pt understands that goal is to try and keep her LLE but knows that AKA could be possible if infection not stopped. - Zofran for nausea. Not taking narcotics presently. LLE DVT - Coumadin : IVC filter placed AFib DM2 HTN (1) Infection of total left knee replacement (2) MRSA (methicillin resistant Staphylococcus aureus) septicemia (3) Leukocytosis Inhouse Planning Pain Management: Ultram, PO Tylenol DVT Prophylaxis: TEDs, SCDs, Coumadin, other (IVC Filter) Discharge Planning Discharge Planning: retirement facility
[2016-12-05] MEDS: DAPTOmycin IV 600 MG in SODIUM CHLORIDE 0.9% 50ML 50 ML IV SCH (13:33)
[2016-12-05] MEDS ORDERED: OPTIRAY 320 IV PRN (14:30)
--- NOTE | 2016-12-05 14:30 | Surgery Progress Note ---
Surgery Progress Note Date of Service Dec 05, 2016. Subjective Patient resting comfortably in room. She offers no complaints. Wound Vac removed with wound care nurses. Pre-Albumin 10.8 and Albumin 1.8 Objective Vital Signs: Date Time Temp Pulse Resp B/P Pulse Ox O2 Delivery O2 Flow Rate FiO2 12/05/16 08:00 Room Air 12/05/16 07:19 36.8 65 16 144/84 97 Room Air 12/05/16 00:00 Room Air 12/04/16 23:00 36.5 77 17 147/83 98 Room Air 12/04/16 16:15 Room Air 12/04/16 15:22 36.6 69 16 142/81 97 Room Air General Appearance: WD/WN, no apparent distress Incision(s): findings (vac removed and spontaneous thick, yellow drainage from medial aspect of left inferior knee wound was observed. There is increasing amount of granulation tissue in two seperate areas, with necrotic and fibrin located on lateral and medial aspects of wound bed. Evidence of necrosis suprior to larger wound along suture line that is quite tender for patient . Pressure points without ulceration noted along lateral left foot) Laboratory Results: Results Past 24 Hours Test 12/04/16 17:15 12/04/16 20:40 12/05/16 08:17 12/05/16 12:25 Range/Units Bedside Glucose 151 181 145 113 70-90 mg/dl Assessment & Plan Left knee wound status post infected left total knee arthroplasty in a patient with diabetes and peripheral arterial disease. She is currently non-weight bearing on left leg. Pressure points located along left foot 1. Evidence of granulation tissue in wound bed. However, with thick drainage from wound there is concern for ongoing infection and possibility of osteomyelitis. Will check CT for osteo which may impact our recommendations for future potential closing of wound 2. Will switch back to irrigating vac due to infectious drainage and necrotic tissue. Will remove remaining sutures so irrigating vac can be used along the entire wound. Will monitor amount of irrigation in vs output to help determine how much fluid is draining from wound. This was discussed with Anam Lei PA-C 3. Patient's pre-Albumin is 10.8 indicating very poor nutritional status for wound healing. [employer] re-consulted to add protein supplements to aid in wound healing 4. Could potentially consider muscle flap vs skin graft in patient if there is no osteomyelitis and there is improvement in granulation tissue with irrigating vac. However, with poor nutrition and concern for blood flow, these options may fail and this was discussed with the patient. We will continue to monitor patient and re-check wound next week to assess wound bed. 5. Continue with optifoam dressings over left foot pressure points I personally saw and examined this patient, agree with Ms. Lei's assessment and plan. Wound was assessed at the bedside at time of VAC change. left knee wound shows sutures intact with necrosis superiorly, inferiorly in patellar region there is a sizable open wound with about 50 percent slough, 50 percent necrotic tissue. Medial aspect shows a pocket with seropurulent drainage. Albumin 1.8, prealbumin 10. Case was discussed with Juanita Genao as well as Dr. Ma. Will place irrigating wound VAC again to ideally help clear out some of the seropurulent drainage. Recommend CT scan to evaluate for osteomyelitis. Nutritional status as well as diabetes and vascular status is a significant barrier to healing. Would recommend reengagement of dietitians for consideration arginine supplementation. At this point would not recommend any reconstruction until infection is better controlled and osteomyelitis can be ruled out. Ideally, if we can create enough granulation tissue, it would be reasonable to place a split-thickness skin graft in the future.
[2016-12-05 16:11] VITALS: BP 155/85; PULSE 84; TEMP 36.9; O2SAT 95
[2016-12-05] MEDS: WARFARIN SOD 4 MG TAB PO SCH (17:02)
[2016-12-05] MEDS: ACETAMINOPHEN 325 MG TAB PO PRN (17:03)
[2016-12-05] MEDS: ARGININE EXTRA NUTRITION DRINK 1 BOX PO SCH (17:45)
--- NOTE | 2016-12-05 18:25 | DIAGNOSTIC IMAGING REPORT ---
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 TECHNIQUE: Axial images of the left knee were obtained following intravenous injection of 93 cc of Optiray 320 IV. Sagittal and coronal reconstructions were viewed. COMPARISON STUDY: Left knee radiographs November 14, 2016. FINDINGS: Evaluation is difficult due to streak artifact from the arthroplasty hardware. An antibiotic spacer is noted. There is a comminuted, mildly displaced proximal left tibial fracture which predominantly involves the posterior cortex. There is no significant depression. There is irregularity posterior cortex of the proximal left tibia. Soft tissue gas is noted along the lateral aspect of the left knee. There is a suprapatellar wound with a small left knee joint effusion. Note is made of a small 2.2 x 0.9 cm rim enhancing fluid collection along the left posterior aspect of the proximal left tibia. There is no acute fracture of the distal left femur or proximal left tibia. IMPRESSION: 1. Technically difficult study to interpret due to streak artifact from the surgical hardware. Antibiotic spacer in place. 2. Comminuted, mildly displaced proximal left tibial fracture. 3. Moderate soft tissue gas adjacent to left knee which could be related to the open wound. However, a gas-forming infectious process could appear similar. 4. Small left knee joint effusion. 5. Small 2.2 x 0.9 cm rim enhancing fluid collection along the posterior aspect of the proximal left tibia. This is nonspecific in the postoperative setting but could reflect an abscess. 6. Irregularity of the posterior cortex of the proximal left tibia. Given the clinical history, this is worrisome for osteomyelitis. Electronically signed by: Deny Connelly M.D. 12/05/2016 6:23 PM Dictated Date/Time: 12/05/2016 6:13 PM
--- NOTE | 2016-12-05 18:28 | Progress Note ---
Subjective Date of Service: Dec 05, 2016. Subjective Pt evaluation today including: conversation w/ patient, physical exam, lab review, review of studies, review of inpatient medication list Saw/examined the patient in room 382 she is nauseous Pain is controlled wound vac changed just came back from CT Review of Systems Respiratory: No shortness of breath Cardiac: No chest pain Abdomen: + nausea, No pain Musculoskeletal: + joint pain (controlled with medications) Medications Current Inpatient Medications Medications (Trade) Dose Ordered Sig/Denisse Route Start Time Stop Time Status Last Admin Dose Admin Pantoprazole Sodium (Protonix Tab) 40 mg QAM PO 11/14/16 09:00 12/14/16 08:59 12/05/16 08:28 40 MG Acetaminophen (Tylenol Tab) 650 mg Q4H PRN PO 11/13/16 13:00 12/13/16 12:59 12/05/16 17:03 650 MG Docusate Sodium (coLACE CAP) 100 mg BID PO 11/13/16 21:00 12/13/16 20:59 12/04/16 21:51 100 MG Folic Acid (Folvite Tab) 1 mg DAILY PO 11/14/16 09:00 12/14/16 08:59 12/05/16 08:29 1 MG Tramadol HCl 50 mg 50 mg Q4H PRN PO 11/13/16 13:00 12/13/16 12:59 12/05/16 13:28 50 MG Daptomycin/Sodium Chloride (Cubicin IV/Nss 50ml) 62 ml @ 120 mls/hr Q24H IV 11/13/16 14:00 12/25/16 13:59 12/05/16 13:33 120 MLS/HR Glucose (Glucose 40% Gel) 15-30 GRAMS 15 GRAMS... UD PRN PO 11/13/16 14:30 12/13/16 14:29 Glucose (Glucose Chew Tab) 4-8 Tablets 4 Tabl... UD PRN PO 11/13/16 14:30 12/13/16 14:29 Dextrose (Dextrose 50% 50ML Syringe) 25-50ML OF 50% DW IV FOR... UD PRN IV 11/13/16 14:30 12/13/16 14:29 11/16/16 16:36 50 ML Glucagon (Glucagon Inj) 1 mg UD PRN SQ 11/13/16 14:30 12/13/16 14:29 Magnesium Hydroxide (Milk Of Magnesia Susp) 30 ml Q6H PRN PO 11/14/16 11:45 12/14/16 11:44 12/03/16 09:37 30 ML Bisacodyl (Dulcolax Supp) [address] 11/14/16 11:45 12/14/16 11:44 Senna (Senokot Tab) 17.2 mg HS PO 11/14/16 21:00 12/14/16 20:59 12/04/16 21:51 17.2 MG Diphenhydramine HCl (Benadryl Inj) 25 mg Q8H PRN IV 11/14/16 11:45 12/14/16 11:44 Al Hydrox/Mg Hydrox/Simethicone (Maalox Max Susp) 15 ml Q4H PRN PO 11/14/16 11:45 12/14/16 11:44 Multivitamins (Multivitamin Tab) 1 tab QAM PO 11/15/16 09:00 12/15/16 08:59 12/04/16 09:55 1 TAB Ondansetron HCl (Zofran Inj) 4 mg Q6H PRN IV 11/14/16 11:45 12/14/16 11:44 12/05/16 17:02 4 MG Ferrous Gluconate (Ferrous Gluconate Tab) 324 mg TIDM PO 11/14/16 12:30 12/14/16 12:29 12/05/16 13:28 324 MG Heparin Sodium (Porcine) (Heparin 10 Unit/ ml 5 ml Flush) 5 ml PRN PRN FLUSH 11/15/16 01:30 12/15/16 01:29 12/05/16 17:03 5 ML Insulin Aspart (novoLOG ASPART) SLIDING SCALE ACHS SC 11/15/16 16:00 12/15/16 15:59 12/05/16 08:37 5 UNITS Miconazole Nitrate (Desenex Powder) 1 appln BID PRN EXT 11/16/16 17:00 12/16/16 16:59 11/21/16 10:09 1 APPLN Metoprolol Tartrate (Lopressor Tab) 37.5 mg BID PO 11/30/16 21:00 12/30/16 20:59 12/05/16 08:29 37.5 MG Insulin Glargine (Lantus Solostar Pen) 9 unit BID SC 12/01/16 09:00 12/31/16 08:59 12/05/16 08:37 9 UNIT Collagenase (Santyl Oint) 1 appln UD EXT 12/01/16 13:00 12/31/16 12:59 Warfarin Sodium (Coumadin Tab) 4 mg DAILY@16 PO 12/02/16 16:00 01/01/17 15:59 12/05/16 17:02 4 MG Ioversol (Optiray 320) 100 ml UD PRN IV 12/05/16 14:30 12/09/16 14:29 Enteral Nutritional Formula (Arginaid Extra) 1 box BIDM PO 12/05/16 17:45 01/04/17 17:44 Objective Vital Signs Date Time Temp Pulse Resp B/P Pulse Ox O2 Delivery O2 Flow Rate FiO2 12/05/16 16:11 36.9 84 17 155/85 95 Room Air 12/05/16 08:00 Room Air 12/05/16 07:19 36.8 65 16 144/84 97 Room Air 12/05/16 00:00 Room Air 12/04/16 23:00 36.5 77 17 147/83 98 Room Air Physical Exam General Appearance: no apparent distress Respiratory/Chest: lungs clear, normal breath sounds, no respiratory distress, no accessory muscle use Cardiovascular: regular rate, rhythm, no edema, no murmur Extremities: + pertinent finding (R BKA, L wound vac on knee) Laboratory Results Last 24 Hours Test 12/04/16 20:40 12/05/16 08:17 12/05/16 12:25 12/05/16 17:21 Bedside Glucose 181 mg/dl 145 mg/dl 113 mg/dl 149 mg/dl Assessment and Plan SEPSIS with SEPTIC ARTHRITIS LEFT KNEE MRSA BACTEREMIA 12/[address] of LE pending 12/03 continue Dapto Wound vac changed -- no surgical intervention at this time 12/01 wound vac has been replaced today ID = IV dapto x 6 weeks wound care and orthopedic on board for further management 11/29 IV dapto x 6 weeks wound vac wound care + orthopedic regarding further care 11/28 non-excisional debridement today wound vac changed today as per wound care continuing traditional wound vac at this point will need a total of 6 weeks of daptomycin as per ID d/c plan to SNF s/p I&D and removal of implants with insertion of antibiotic spacer on 11/14 POD # 12 on wound vac -changed today by Dr Ma form continuous irrigation mode to traditional wound vac setting w will need continued follow up at wound care clinic for wound care and wound vac management Synovial fluid culture growth MRSA Blood culture -staph aureus /MRSA recent blood cultures on 11/14/16 - no growth to date appreciate ID eval Recommend to Continue daptomycin for 6 weeks will need weekly CBC ,CMP , ESR , CPK check while on daptomycin . Will need continued ID follow up on discharge ECHO : no valvular vegetation noted PICC line placed will need arrangements for IV Daptomycin at [facility] for 6 weeks updated by CM placement in SNF is difficult as IV Daptomycin being very expensive pt is allergic to Vancomycin D/w ID no effective option is available to adequately treat MRSA Sepsis / septic knee Case management updated LEFT LOWER EXT DVT 12/05 continue Coumadin 4mg and check INR in AM 12/03 4mg of Coumadin recheck INR, increase Coumadin dose on 12/04 12/02 4mg of Coumadin tonight 12/01 increased Coumadin dose to 4mg daily check INR in AM 11/29 now on Coumadin check INR in AM 11/28 Patient is on Coumadin now s/p IVC filter in place will check INR in AM monitor for any bleeding; low threshold to stop Coumadin due to bleeding risk as well as anemia USG of left lower ext : IMPRESSION: Acute deep venous thrombosis progressive from the prior study of 10/20/2016 pt already has IVC filter placed D/w Dr Hogan Vascular surgery -no other vascular intervention can be done as IVC filter is present already recommend to treat pt with therapeutic anticoagulation -if OK with Ortho team Case D/w Ortho pt was on Aspirin 81 mg PO BID for DVT prophylaxis -not effective -as progression of DVT seen in L lower ext USG Ok start pt on Coumadin ( pt is almost 2 weeks post op ) given chronic anemia , and required 4 units PRBC transfusion high risk for bleeding complication will avoid bridge therapy Coumadin low dose 2 mg daily , follow PT /INR goal to keep INR between 2-2.5 D/C Aspirin ACUTE BLOOD LOSS ANEMIA - s/p 4 units PRBCs 12/02 H/H stable 11/29 Hgb up to 8.6 will monitor and transfuse if < 7 or if symptomatic 11/28 Hgb is trending down to 8.1 Wound vac still draining blood s/p debridement on 11/28 now on Coumadin monitor H/H and INR may need to stop Coumadin and go back to aspirin -s/p transfused 4units PRBC's -Hgb stable follow CBC daily as pt is started on Coumadin HTN 12/02 blood pressure improved, continue to give metoprolol 37.5mg BID 12/01 blood pressure had been elevated metoprolol increased to 37.5mg BID 11/28 blood pressure labile, as it keeps trending upwards monitor and we may need to adjust the dose of medications LOW URINE OUT PUT : improved D/c IVF ATRIAL FIBRILLATION cont on Beta jodie DM2 -hold glipizide -can be resumed on discharge -insulin coverage -glycemic pharmacy consulted PRESSURE ULCERS Pressure ulcer of right medial buttock, stage 2, POA and Pressure ulcer of medial sacrum, stage 2, not POA -- Wound care consulted DVT PROPHYLAXIS: aspirin BID per Ortho DISPOSITION ; per Ortho will need SNF for continued PT/wound care /IV Abx Awaiting acceptance
[2016-12-05] MEDS: SENNA 8.6 MG TAB PO SCH (22:25)
[2016-12-05 23:40] VITALS: BP 150/89; PULSE 79; TEMP 36.8; O2SAT 98
[2016-12-06] MEDS: TRAMADOL HCL 50 MG TAB PO PRN ×4 (01:46→23:58)
[2016-12-06 06:27] LABS: HEMATOCRIT 29.9 % (37-47); MEAN CELL VOLUME 89.3 fL (80-100); MEAN CORPUSCULAR HEMOGLOBIN 28.4 pg (25-34); MEAN CORPUSCULAR HGB CONC 31.8 g/dl (32-36); MEAN PLATELET VOLUME 8.2 fL (7.4-10.4); PLATELET COUNT 975 K/uL (130-400); RED BLOOD COUNT 3.35 M/uL (4.2-5.4); WHITE BLOOD COUNT 9.45 K/uL (4.8-10.8)
[2016-12-06 06:34] LABS: INR 1.6 (0.9-1.1); PROTHROMBIN TIME (PATIENT) 17.5 SECONDS (9.0-12.0)
[2016-12-06 07:02] LABS: BUN/CREATININE RATIO 14.4 (10-20); CALCIUM 8.9 mg/dl (8.5-10.1); CREATININE 0.59 mg/dl (0.60-1.20); MAGNESIUM 2.1 mg/dl (1.8-2.4); POTASSIUM 3.9 mmol/L (3.5-5.1)
[2016-12-06 07:29] VITALS: BP 166/85; PULSE 72; TEMP 36.7; O2SAT 95
--- NOTE | 2016-12-06 08:12 | Orthopedic Progress Note ---
Orthopedic Progress Note Date of Service Dec 06, 2016. Objective calves soft nontender, dressing C/D/I BKA SITE WELL HEALED Date Time Temp Pulse Resp B/P Pulse Ox O2 Delivery O2 Flow Rate FiO2 12/06/16 07:29 36.7 72 16 166/85 95 Room Air 12/05/16 23:40 36.8 79 16 150/89 98 Room Air 12/05/16 23:22 Room Air 12/05/16 16:15 Room Air 12/05/16 16:11 36.9 84 17 155/85 95 Room Air Laboratory Results 24 Hours: Test 12/06/16 05:57 Hematocrit 29.9 % Hemoglobin 9.5 g/dL Prothromb Time International Ratio 1.6 Prothrombin Time 17.5 SECONDS Assessment & Plan Assessment: SEPTIC ARTHRITIS LEFT TOTAL KNEE ARTHROPLASTY - [facility], removal total knee implant, placement of antibiotic spacer. Wound vac placed on left knee. - Will keep sutures in the left knee for now. Right BKA sutures to be removed TODAY - Appreciate ID Consult, currently on Daptomycin. -awaiting possible placement but doubtful due to cost of Daptomycin - plan for left knee is to continue the wound vac for now. Pressure increased to 150ml. Dr Lucero to look at wound today to provide any insight on possibility of future closure. Pt understands that goal is to try and keep her LLE but knows that AKA could be possible if infection not stopped. - Zofran for nausea. Not taking narcotics presently. LLE DVT - Coumadin : IVC filter placed AFib DM2 HTN (1) Infection of total left knee replacement (2) MRSA (methicillin resistant Staphylococcus aureus) septicemia (3) Leukocytosis Inhouse Planning Pain Management: Ultram, PO Tylenol DVT Prophylaxis: TEDs, SCDs, Coumadin, other (IVC Filter) Discharge Planning Discharge Planning: long term facility
[2016-12-06] MEDS: ARGININE EXTRA NUTRITION DRINK 1 BOX PO SCH ×2 (08:30→17:45)
[2016-12-06 08:35] VITALS: O2SAT 95
[2016-12-06] MEDS: ONDANSETRON INJ 2 MG/ML 2 ML VIAL IV PRN ×2 (08:42→15:33)
[2016-12-06] MEDS: METOPROLOL TARTRATE 25 MG TAB PO SCH ×2 (08:46→21:49)
[2016-12-06] MEDS: FERROUS GLUCONATE 324 MG TAB PO SCH ×3 (08:46→17:45)
[2016-12-06] MEDS: DOCUSATE SODIUM 100 MG CAP PO SCH ×2 (08:47→21:48)
[2016-12-06] MEDS: MULTIVITAMIN TAB PO SCH (08:48)
[2016-12-06] MEDS: PANTOprazole SOD 40 MG TAB PO SCH (08:48)
[2016-12-06] MEDS: INSULIN GLARGINE SOLOSTAR 100 UNITS/ML 3 ML PEN SC SCH ×2 (08:54→21:46)
[2016-12-06] MEDS: INSULIN ASPART 100 UNITS/ML 3 ML PEN SC SCH ×4 (08:57→21:47)
[2016-12-06] MEDS: DAPTOmycin IV 600 MG in SODIUM CHLORIDE 0.9% 50ML 50 ML IV SCH (14:25)
[2016-12-06 15:15] VITALS: BP 153/96; PULSE 73; TEMP 36.7; O2SAT 95
[2016-12-06] MEDS: SODIUM CHLORIDE 0.9% 1000ML 1,000 ML IV SCH ×2 (15:32→23:58)
[2016-12-06] MEDS: WARFARIN SOD 4 MG TAB PO SCH (15:32)
--- NOTE | 2016-12-06 17:18 | Progress Note ---
Subjective Date of Service: Dec 06, 2016. Subjective Pt evaluation today including: conversation w/ patient, physical exam, lab review, review of studies, review of inpatient medication list Saw/examined the patient in room 382 + nausea today; does not have good PO intake sutures from R BKA removed L knee = wound vac draining Eager to get out of the hospital Review of Systems Constitutional: + weakness, No chills, No fever Respiratory: No shortness of breath Cardiac: No chest pain Abdomen: + nausea, No diarrhea, No pain, No vomiting Musculoskeletal: + joint pain (L knee) Heme: No abnormal bleeding/bruising Medications Current Inpatient Medications Medications (Trade) Dose Ordered Sig/Denisse Route Start Time Stop Time Status Last Admin Dose Admin Pantoprazole Sodium (Protonix Tab) 40 mg QAM PO 11/14/16 09:00 12/14/16 08:59 12/06/16 08:48 40 MG Acetaminophen (Tylenol Tab) 650 mg Q4H PRN PO 11/13/16 13:00 12/13/16 12:59 12/05/16 17:03 650 MG Docusate Sodium (coLACE CAP) 100 mg BID PO 11/13/16 21:00 12/13/16 20:59 12/06/16 08:47 100 MG Folic Acid (Folvite Tab) 1 mg DAILY PO 11/14/16 09:00 12/14/16 08:59 12/06/16 08:47 1 MG Tramadol HCl 50 mg 50 mg Q4H PRN PO 11/13/16 13:00 12/13/16 12:59 12/06/16 15:33 50 MG Daptomycin/Sodium Chloride (Cubicin IV/Nss 50ml) 62 ml @ 120 mls/hr Q24H IV 11/13/16 14:00 12/25/16 13:59 12/06/16 14:25 120 MLS/HR Glucose (Glucose 40% Gel) 15-30 GRAMS 15 GRAMS... UD PRN PO 11/13/16 14:30 12/13/16 14:29 Glucose (Glucose Chew Tab) 4-8 Tablets 4 Tabl... UD PRN PO 11/13/16 14:30 12/13/16 14:29 Dextrose (Dextrose 50% 50ML Syringe) 25-50ML OF 50% DW IV FOR... UD PRN IV 11/13/16 14:30 12/13/16 14:29 11/16/16 16:36 50 ML Glucagon (Glucagon Inj) 1 mg UD PRN SQ 11/13/16 14:30 12/13/16 14:29 Magnesium Hydroxide (Milk Of Magnesia Susp) 30 ml Q6H PRN PO 11/14/16 11:45 12/14/16 11:44 12/03/16 09:37 30 ML Bisacodyl (Dulcolax Supp) 10 mg DAILY PRN [place] 11/14/16 11:45 12/14/16 11:44 Senna (Senokot Tab) 17.2 mg HS PO 11/14/16 21:00 12/14/16 20:59 12/05/16 22:25 17.2 MG Diphenhydramine HCl (Benadryl Inj) 25 mg Q8H PRN IV 11/14/16 11:45 12/14/16 11:44 Al Hydrox/Mg Hydrox/Simethicone (Maalox Max Susp) 15 ml Q4H PRN PO 11/14/16 11:45 12/14/16 11:44 Multivitamins (Multivitamin Tab) 1 tab QAM PO 11/15/16 09:00 12/15/16 08:59 12/06/16 08:48 1 TAB Ondansetron HCl (Zofran Inj) 4 mg Q6H PRN IV 11/14/16 11:45 12/14/16 11:44 12/06/16 15:33 4 MG Ferrous Gluconate (Ferrous Gluconate Tab) 324 mg TIDM PO 11/14/16 12:30 12/14/16 12:29 12/06/16 13:23 324 MG Heparin Sodium (Porcine) (Heparin 10 Unit/ ml 5 ml Flush) 5 ml PRN PRN FLUSH 11/15/16 01:30 12/15/16 01:29 12/06/16 05:56 5 ML Insulin Aspart (novoLOG ASPART) SLIDING SCALE ACHS SC 11/15/16 16:00 12/15/16 15:59 12/06/16 13:23 3 UNITS Miconazole Nitrate (Desenex Powder) 1 appln BID PRN EXT 11/16/16 17:00 12/16/16 16:59 11/21/16 10:09 1 APPLN Metoprolol Tartrate (Lopressor Tab) 37.5 mg BID PO 11/30/16 21:00 12/30/16 20:59 12/06/16 08:46 37.5 MG Insulin Glargine (Lantus Solostar Pen) 9 unit BID SC 12/01/16 09:00 12/31/16 08:59 12/06/16 08:54 9 UNIT Collagenase (Santyl Oint) 1 appln UD EXT 12/01/16 13:00 12/31/16 12:59 Warfarin Sodium (Coumadin Tab) 4 mg DAILY@16 PO 12/02/16 16:00 01/01/17 15:59 12/06/16 15:32 4 MG Ioversol (Optiray 320) 100 ml UD PRN IV 12/05/16 14:30 12/09/16 14:29 Enteral Nutritional Formula 1 box 1 box BIDM PO 12/05/16 17:45 01/04/17 17:44 Sodium Chloride (Nss 1000ml) 1,000 ml @ 100 mls/hr Q10H IV 12/06/16 14:45 01/05/17 14:44 12/06/16 15:32 100 MLS/HR Objective Vital Signs Date Time Temp Pulse Resp B/P Pulse Ox O2 Delivery O2 Flow Rate FiO2 12/06/16 15:15 36.7 73 16 153/96 95 Room Air 12/06/16 08:35 95 Room Air 12/06/16 07:29 36.7 72 16 166/85 95 Room Air 12/05/16 23:40 36.8 79 16 150/89 98 Room Air 12/05/16 23:22 Room Air Physical Exam General Appearance: no apparent distress Respiratory/Chest: lungs clear, normal breath sounds, no respiratory distress, no accessory muscle use Cardiovascular: regular rate, rhythm, no edema, no murmur Extremities: + pertinent finding (R BKA, sutures removed; L knee wound vac in place) Neurologic/Psychiatric: alert, normal mood/affect Laboratory Results Last 24 Hours Test 12/05/16 17:21 12/05/16 20:40 12/06/16 05:51 12/06/16 05:57 Bedside Glucose 149 mg/dl 135 mg/dl Sodium Level 134 mmol/L Potassium Level 3.9 mmol/L Chloride Level 96 mmol/L Carbon Dioxide Level 31 mmol/L Anion Gap 7.0 mmol/L Blood Urea Nitrogen 8 mg/dl Creatinine 0.59 mg/dl Est Creatinine Clear Calc Drug Dose 103.5 ml/min Estimated GFR () 109.9 Estimated GFR (Non- 94.8 BUN/Creatinine Ratio 14.4 Random Glucose 107 mg/dl Calcium Level 8.9 mg/dl Magnesium Level 2.1 mg/dl White Blood Count 9.45 K/uL Red Blood Count 3.35 M/uL Hemoglobin 9.5 g/dL Hematocrit 29.9 % Mean Corpuscular Volume 89.3 fL Mean Corpuscular Hemoglobin 28.4 pg Mean Corpuscular Hemoglobin Concent 31.8 g/dl RDW Standard Deviation 50.0 fL RDW Coefficient of Variation 15.3 % Platelet Count 975 K/uL Mean Platelet Volume 8.2 fL Prothrombin Time 17.5 SECONDS Prothromb Time International Ratio 1.6 Test 12/06/16 08:24 12/06/16 12:25 Bedside Glucose 118 mg/dl 143 mg/dl Assessment and Plan SEPSIS with SEPTIC ARTHRITIS LEFT KNEE MRSA BACTEREMIA 12/06 CT worrisome for osteomyelitis continue Daptomycin at least 6 week total course due to MRSA infection in the synovial fluid and blood culture orthopedic surgery and wound care involved - wound vac in place will check CBC, CMP, ESR, CPK next week as per ID PICC line in place - d/c to facility difficult due to cost of the Daptomycin discharge planning - vocational case manager aware 12/[address] of LE pending 12/03 continue Dapto Wound vac changed M-W-F no surgical intervention at this time 12/01 wound vac has been replaced today ID = IV dapto x 6 weeks wound care and orthopedic on board for further management 11/29 IV dapto x 6 weeks wound vac wound care + orthopedic regarding further care 11/28 non-excisional debridement today wound vac changed today as per wound care continuing traditional wound vac at this point will need a total of 6 weeks of daptomycin as per ID d/c plan to SNF s/p I&D and removal of implants with insertion of antibiotic spacer on 11/14 POD # 12 on wound vac -changed today by Dr Ma form continuous irrigation mode to traditional wound vac setting w will need continued follow up at wound care clinic for wound care and wound vac management Synovial fluid culture growth MRSA Blood culture -staph aureus /MRSA recent blood cultures on 11/14/16 - no growth to date appreciate ID eval Recommend to Continue daptomycin for 6 weeks will need weekly CBC ,CMP , ESR , CPK check while on daptomycin . Will need continued ID follow up on discharge ECHO : no valvular vegetation noted PICC line placed will need arrangements for IV Daptomycin at SNF for 6 weeks updated by CM placement in SNF is difficult as IV Daptomycin being very expensive pt is allergic to Vancomycin D/w ID no effective option is available to adequately treat MRSA Sepsis / septic knee Case management updated LEFT LOWER EXT DVT 12/06 patient has a left lower extremity DVT s/p IVC filter now on Coumadin increased Coumadin to 5mg daily due to subtherapeutic INR check INR in AM 12/05 continue Coumadin 4mg and check INR in AM 12/03 4mg of Coumadin recheck INR, increase Coumadin dose on 12/04 12/02 4mg of Coumadin tonight 12/01 increased Coumadin dose to 4mg daily check INR in AM 11/29 now on Coumadin check INR in AM 11/28 Patient is on Coumadin now s/p IVC filter in place will check INR in AM monitor for any bleeding; low threshold to stop Coumadin due to bleeding risk as well as anemia USG of left lower ext : IMPRESSION: Acute deep venous thrombosis progressive from the prior study of 10/20/2016 pt already has IVC filter placed D/w Dr Hogan Vascular surgery -no other vascular intervention can be done as IVC filter is present already recommend to treat pt with therapeutic anticoagulation -if OK with Ortho team Case D/w Ortho pt was on Aspirin 81 mg PO BID for DVT prophylaxis -not effective -as progression of DVT seen in L lower ext USG Ok start pt on Coumadin ( pt is almost 2 weeks post op ) given chronic anemia , and required 4 units PRBC transfusion high risk for bleeding complication will avoid bridge therapy Coumadin low dose 2 mg daily , follow PT /INR goal to keep INR between 2-2.5 D/C Aspirin ACUTE BLOOD LOSS ANEMIA - s/p 4 units PRBCs 12/06 patient has received four units of PRBCs during this admission her H/H remains stable and no need for further transfusion at this time monitor H/H 12/02 H/H stable 11/29 Hgb up to 8.6 will monitor and transfuse if < 7 or if symptomatic 11/28 Hgb is trending down to 8.1 Wound vac still draining blood s/p debridement on 11/28 now on Coumadin monitor H/H and INR may need to stop Coumadin and go back to aspirin -s/p transfused 4units PRBC's -Hgb stable follow CBC daily as pt is started on Coumadin HTN 12/06 blood pressures better controlled with metoprolol 37.5mg BID may need to increase it to 50mg BID if blood pressures continue to fluctuate 12/02 blood pressure improved, continue to give metoprolol 37.5mg BID 12/01 blood pressure had been elevated metoprolol increased to 37.5mg BID 11/28 blood pressure labile, as it keeps trending upwards monitor and we may need to adjust the dose of medications LOW URINE OUT PUT 12/06 patient has low urine output, likely due to decreased PO intake/nausea patient looks dehydrated IVFs restarted, monitor ATRIAL FIBRILLATION cont on Beta jodie DM2 -hold glipizide -can be resumed on discharge -insulin coverage -glycemic pharmacy consulted PRESSURE ULCERS Pressure ulcer of right medial buttock, stage 2, POA and Pressure ulcer of medial sacrum, stage 2, not POA -- Wound care consulted DVT PROPHYLAXIS: aspirin BID per Ortho DISPOSITION ; per Ortho will need SNF for continued PT/wound care /IV Abx Awaiting acceptance
[2016-12-06] MEDS ORDERED: WARFARIN SOD 1 MG TAB PO ONE (18:30)
[2016-12-06] MEDS: SENNA 8.6 MG TAB PO SCH (21:48)
[2016-12-06 23:20] VITALS: BP 144/92; PULSE 71; TEMP 36.8; O2SAT 97
[2016-12-07 06:15] LABS: HEMATOCRIT 28.7 % (37-47); MEAN CELL VOLUME 89.7 fL (80-100); MEAN CORPUSCULAR HEMOGLOBIN 28.4 pg (25-34); MEAN CORPUSCULAR HGB CONC 31.7 g/dl (32-36); MEAN PLATELET VOLUME 8.1 fL (7.4-10.4); PLATELET COUNT 920 K/uL (130-400); WHITE BLOOD COUNT 8.79 K/uL (4.8-10.8)
[2016-12-07 06:26] LABS: PROTHROMBIN TIME (PATIENT) 21.8 SECONDS (9.0-12.0)
[2016-12-07 06:47] LABS: BUN/CREATININE RATIO 17.7 (10-20); CALCIUM 8.3 mg/dl (8.5-10.1); CREATININE 0.52 mg/dl (0.60-1.20); POTASSIUM 3.8 mmol/L (3.5-5.1)
[2016-12-07 08:30] VITALS: O2SAT 95
[2016-12-07] MEDS: ARGININE EXTRA NUTRITION DRINK 1 BOX PO SCH ×2 (08:30→17:09)
[2016-12-07] MEDS: TRAMADOL HCL 50 MG TAB PO PRN ×3 (08:44→19:59)
[2016-12-07] MEDS: ONDANSETRON INJ 2 MG/ML 2 ML VIAL IV PRN ×2 (08:44→14:30)
[2016-12-07 08:45] VITALS: BP 121/63; PULSE 72; TEMP 36.5; O2SAT 95
[2016-12-07] MEDS: INSULIN ASPART 100 UNITS/ML 3 ML PEN SC SCH ×4 (08:46→21:00)
[2016-12-07] MEDS: METOPROLOL TARTRATE 25 MG TAB PO SCH ×2 (08:48→20:00)
[2016-12-07] MEDS: DOCUSATE SODIUM 100 MG CAP PO SCH ×2 (08:49→19:59)
[2016-12-07] MEDS: FERROUS GLUCONATE 324 MG TAB PO SCH ×3 (08:49→17:09)
[2016-12-07] MEDS: PANTOprazole SOD 40 MG TAB PO SCH (08:50)
[2016-12-07] MEDS: MULTIVITAMIN TAB PO SCH (08:50)
[2016-12-07] MEDS: INSULIN GLARGINE SOLOSTAR 100 UNITS/ML 3 ML PEN SC SCH ×2 (08:53→21:42)
--- NOTE | 2016-12-07 09:28 | Orthopedic Progress Note ---
Orthopedic Progress Note Date of Service Dec 07, 2016. Subjective Reports: feeling well, pain controlled w PO medications, Denies: SOB, calf pain , chest pain, complaints, light headedness, nausea / vomiting Objective incision C/D/I, A&O x3, toes mobile (left) Right bka stump incision healed well. Left Knee wound vac in tact. Date Time Temp Pulse Resp B/P Pulse Ox O2 Delivery O2 Flow Rate FiO2 12/06/16 23:55 Room Air 12/06/16 23:20 36.8 71 18 144/92 97 Room Air 12/06/16 15:20 Room Air 12/06/16 15:15 36.7 73 16 153/96 95 Room Air Laboratory Results 24 Hours: Test 12/07/16 05:56 Hematocrit 28.7 % Hemoglobin 9.1 g/dL Prothromb Time International Ratio 2.0 Prothrombin Time 21.8 SECONDS Assessment & Plan Assessment: SEPTIC ARTHRITIS LEFT TOTAL KNEE ARTHROPLASTY - Appreciate Medical Management [facility] - s/p I&D, removal total knee implant, placement of antibiotic spacer. Wound vac placed on left knee. - Will keep sutures in the left knee for now. - Appreciate ID Consult, currently on Daptomycin. -awaiting possible placement but doubtful due to cost of Daptomycin - plan for left knee is to continue the wound vac for now. Pressure increased to 150ml. Dr Lucero to look at wound today to provide any insight on possibility of future closure. Pt understands that goal is to try and keep her LLE but knows that AKA could be possible if infection not stopped. - Zofran for nausea. Not taking narcotics presently. LLE DVT - Coumadin : IVC filter placed AFib DM2 HTN (1) Infection of total left knee replacement (2) MRSA (methicillin resistant Staphylococcus aureus) septicemia (3) Leukocytosis Inhouse Planning Pain Management: Ultram, PO Tylenol DVT Prophylaxis: TEDs, SCDs, Coumadin, other (IVC Filter) Discharge Planning Discharge Planning: [facility] facility
[2016-12-07] MEDS: SODIUM CHLORIDE 0.9% 1000ML 1,000 ML IV SCH ×2 (10:33→21:35)
[2016-12-07] MEDS: DAPTOmycin IV 600 MG in SODIUM CHLORIDE 0.9% 50ML 50 ML IV SCH (14:31)
[2016-12-07 14:37] VITALS: BP 140/70
--- NOTE | 2016-12-07 14:40 | Progress Note ---
Subjective Date of Service: Dec 07, 2016. Subjective Pt evaluation today including: conversation w/ patient, physical exam, lab review, review of studies, review of inpatient medication list Saw/examined the patient in room 382 Doing okay today, resting in bed, watching TV earlier she sat at the side of the bed to eat Pain is controlled Review of Systems Constitutional: No chills, No fever Respiratory: No shortness of breath Cardiac: No chest pain Abdomen: + nausea (improving), No diarrhea, No pain, No vomiting Musculoskeletal: + joint pain (controlled with medications) Medications Current Inpatient Medications Medications (Trade) Dose Ordered Sig/Denisse Route Start Time Stop Time Status Last Admin Dose Admin Pantoprazole Sodium (Protonix Tab) 40 mg QAM PO 11/14/16 09:00 12/14/16 08:59 12/07/16 08:50 40 MG Acetaminophen (Tylenol Tab) 650 mg Q4H PRN PO 11/13/16 13:00 12/13/16 12:59 12/05/16 17:03 650 MG Docusate Sodium (coLACE CAP) 100 mg BID PO 11/13/16 21:00 12/13/16 20:59 12/07/16 08:49 100 MG Folic Acid (Folvite Tab) 1 mg DAILY PO 11/14/16 09:00 12/14/16 08:59 12/07/16 08:48 1 MG Tramadol HCl 50 mg 50 mg Q4H PRN PO 11/13/16 13:00 12/13/16 12:59 12/07/16 13:03 50 MG Daptomycin/Sodium Chloride (Cubicin IV/Nss 50ml) 62 ml @ 120 mls/hr Q24H IV 11/13/16 14:00 12/25/16 13:59 12/07/16 14:31 120 MLS/HR Glucose (Glucose 40% Gel) 15-30 GRAMS 15 GRAMS... UD PRN PO 11/13/16 14:30 12/13/16 14:29 Glucose (Glucose Chew Tab) 4-8 Tablets 4 Tabl... UD PRN PO 11/13/16 14:30 12/13/16 14:29 Dextrose (Dextrose 50% 50ML Syringe) 25-50ML OF 50% DW IV FOR... UD PRN IV 11/13/16 14:30 12/13/16 14:29 11/16/16 16:36 50 ML Glucagon (Glucagon Inj) 1 mg UD PRN SQ 11/13/16 14:30 12/13/16 14:29 Magnesium Hydroxide (Milk Of Magnesia Susp) 30 ml Q6H PRN PO 11/14/16 11:45 12/14/16 11:44 12/03/16 09:37 30 ML Bisacodyl (Dulcolax Supp) 10 mg DAILY PRN [place] 11/14/16 11:45 12/14/16 11:44 Senna (Senokot Tab) 17.2 mg HS PO 11/14/16 21:00 12/14/16 20:59 12/06/16 21:48 17.2 MG Diphenhydramine HCl (Benadryl Inj) 25 mg Q8H PRN IV 11/14/16 11:45 12/14/16 11:44 Al Hydrox/Mg Hydrox/Simethicone (Maalox Max Susp) 15 ml Q4H PRN PO 11/14/16 11:45 12/14/16 11:44 Multivitamins (Multivitamin Tab) 1 tab QAM PO 11/15/16 09:00 12/15/16 08:59 12/07/16 08:50 1 TAB Ondansetron HCl (Zofran Inj) 4 mg Q6H PRN IV 11/14/16 11:45 12/14/16 11:44 12/07/16 14:30 4 MG Ferrous Gluconate (Ferrous Gluconate Tab) 324 mg TIDM PO 11/14/16 12:30 12/14/16 12:29 12/07/16 13:03 324 MG Heparin Sodium (Porcine) (Heparin 10 Unit/ ml 5 ml Flush) 5 ml PRN PRN FLUSH 11/15/16 01:30 12/15/16 01:29 12/06/16 05:56 5 ML Insulin Aspart (novoLOG ASPART) SLIDING SCALE ACHS SC 11/15/16 16:00 12/15/16 15:59 12/07/16 13:05 3 UNITS Miconazole Nitrate (Desenex Powder) 1 appln BID PRN EXT 11/16/16 17:00 12/16/16 16:59 11/21/16 10:09 1 APPLN Metoprolol Tartrate (Lopressor Tab) 37.5 mg BID PO 11/30/16 21:00 12/30/16 20:59 12/07/16 08:48 37.5 MG Insulin Glargine (Lantus Solostar Pen) 9 unit BID SC 12/01/16 09:00 12/31/16 08:59 12/07/16 08:53 9 UNIT Collagenase (Santyl Oint) 1 appln UD EXT 12/01/16 13:00 12/31/16 12:59 Ioversol (Optiray 320) 100 ml UD PRN IV 12/05/16 14:30 12/09/16 14:29 Enteral Nutritional Formula 1 box 1 box BIDM PO 12/05/16 17:45 01/04/17 17:44 Sodium Chloride (Nss 1000ml) 1,000 ml @ 100 mls/hr Q10H IV 12/06/16 14:45 01/05/17 14:44 12/07/16 10:33 100 MLS/HR Warfarin Sodium (Coumadin Tab) 5 mg DAILY@16 PO 12/07/16 16:00 01/06/17 15:59 Objective Vital Signs Date Time Temp Pulse Resp B/P Pulse Ox O2 Delivery O2 Flow Rate FiO2 12/07/16 08:45 36.5 72 18 121/63 95 Room Air 12/07/16 08:30 95 Room Air 12/06/16 23:55 Room Air 12/06/16 23:20 36.8 71 18 144/92 97 Room Air 12/06/16 15:20 Room Air 12/06/16 15:15 36.7 73 16 153/96 95 Room Air Physical Exam General Appearance: no apparent distress Respiratory/Chest: lungs clear, normal breath sounds, no respiratory distress, no accessory muscle use Cardiovascular: regular rate, rhythm, no murmur Extremities: + pertinent finding (R BKA, L knee wound vac) Laboratory Results Last 24 Hours Test 12/06/16 17:06 12/06/16 20:39 12/07/16 05:56 12/07/16 08:21 Bedside Glucose 121 mg/dl 151 mg/dl 118 mg/dl White Blood Count 8.79 K/uL Red Blood Count 3.20 M/uL Hemoglobin 9.1 g/dL Hematocrit 28.7 % Mean Corpuscular Volume 89.7 fL Mean Corpuscular Hemoglobin 28.4 pg Mean Corpuscular Hemoglobin Concent 31.7 g/dl RDW Standard Deviation 49.8 fL RDW Coefficient of Variation 15.3 % Platelet Count 920 K/uL Mean Platelet Volume 8.1 fL Prothrombin Time 21.8 SECONDS Prothromb Time International Ratio 2.0 Sodium Level 137 mmol/L Potassium Level 3.8 mmol/L Chloride Level 99 mmol/L Carbon Dioxide Level 30 mmol/L Anion Gap 8.0 mmol/L Blood Urea Nitrogen 9 mg/dl Creatinine 0.52 mg/dl Est Creatinine Clear Calc Drug Dose 117.4 ml/min Estimated GFR () 114.6 Estimated GFR (Non- 98.9 BUN/Creatinine Ratio 17.7 Random Glucose 109 mg/dl Calcium Level 8.3 mg/dl Test 12/07/16 12:02 Bedside Glucose 170 mg/dl Assessment and Plan SEPSIS with SEPTIC ARTHRITIS LEFT KNEE MRSA BACTEREMIA 12/07 continue Daptomycin d/c planning to group home for IV antibiotics 12/06 CT worrisome for osteomyelitis continue Daptomycin at least 6 week total course due to MRSA infection in the synovial fluid and blood culture orthopedic surgery and wound care involved - wound vac in place will check CBC, CMP, ESR, CPK next week as per ID PICC line in place - d/c to facility difficult due to cost of the Daptomycin discharge planning - watch case polisher aware 12/[address] of LE pending 12/03 continue Dapto Wound vac changed M-W-F no surgical intervention at this time 12/01 wound vac has been replaced today ID = IV dapto x 6 weeks wound care and orthopedic on board for further management 11/29 IV dapto x 6 weeks wound vac wound care + orthopedic regarding further care 11/28 non-excisional debridement today wound vac changed today as per wound care continuing traditional wound vac at this point will need a total of 6 weeks of daptomycin as per ID d/c plan to SNF s/p I&D and removal of implants with insertion of antibiotic spacer on 11/14 POD # 12 on wound vac -changed today by Dr Ma form continuous irrigation mode to traditional wound vac setting w will need continued follow up at wound care clinic for wound care and wound vac management Synovial fluid culture growth MRSA Blood culture -staph aureus /MRSA recent blood cultures on 11/14/16 - no growth to date appreciate ID eval Recommend to Continue daptomycin for 6 weeks will need weekly CBC ,CMP , ESR , CPK check while on daptomycin . Will need continued ID follow up on discharge ECHO : no valvular vegetation noted PICC line placed will need arrangements for IV Daptomycin at SNF for 6 weeks updated by CM placement in SNF is difficult as IV Daptomycin being very expensive pt is allergic to Vancomycin D/w ID no effective option is available to adequately treat MRSA Sepsis / septic knee Case management updated LEFT LOWER EXT DVT 12/07 INR is now 2.0 decrease dose to 4mg today s/p IVC filter 12/06 patient has a left lower extremity DVT s/p IVC filter now on Coumadin increased Coumadin to 5mg daily due to subtherapeutic INR check INR in AM 12/05 continue Coumadin 4mg and check INR in AM 12/03 4mg of Coumadin recheck INR, increase Coumadin dose on 12/04 12/02 4mg of Coumadin tonight 12/01 increased Coumadin dose to 4mg daily check INR in AM 11/29 now on Coumadin check INR in AM 11/28 Patient is on Coumadin now s/p IVC filter in place will check INR in AM monitor for any bleeding; low threshold to stop Coumadin due to bleeding risk as well as anemia USG of left lower ext : IMPRESSION: Acute deep venous thrombosis progressive from the prior study of 10/20/2016 pt already has IVC filter placed D/w Dr Hogna Vascular surgery -no other vascular intervention can be done as IVC filter is present already recommend to treat pt with therapeutic anticoagulation -if OK with Ortho team Case D/w Ortho pt was on Aspirin 81 mg PO BID for DVT prophylaxis -not effective -as progression of DVT seen in L lower ext USG Ok start pt on Coumadin ( pt is almost 2 weeks post op ) given chronic anemia , and required 4 units PRBC transfusion high risk for bleeding complication will avoid bridge therapy Coumadin low dose 2 mg daily , follow PT /INR goal to keep INR between 2-2.5 D/C Aspirin ACUTE BLOOD LOSS ANEMIA - s/p 4 units PRBCs 12/06 patient has received four units of PRBCs during this admission her H/H remains stable and no need for further transfusion at this time monitor H/H 12/02 H/H stable 11/29 Hgb up to 8.6 will monitor and transfuse if < 7 or if symptomatic 11/28 Hgb is trending down to 8.1 Wound vac still draining blood s/p debridement on 11/28 now on Coumadin monitor H/H and INR may need to stop Coumadin and go back to aspirin -s/p transfused 4units PRBC's -Hgb stable follow CBC daily as pt is started on Coumadin HTN 12/06 blood pressures better controlled with metoprolol 37.5mg BID may need to increase it to 50mg BID if blood pressures continue to fluctuate 12/02 blood pressure improved, continue to give metoprolol 37.5mg BID 12/01 blood pressure had been elevated metoprolol increased to 37.5mg BID 11/28 blood pressure labile, as it keeps trending upwards monitor and we may need to adjust the dose of medications LOW URINE OUT PUT 12/06 patient has low urine output, likely due to decreased PO intake/nausea patient looks dehydrated IVFs restarted, monitor ATRIAL FIBRILLATION cont on Beta jodie DM2 -hold glipizide -can be resumed on discharge -insulin coverage -glycemic pharmacy consulted PRESSURE ULCERS Pressure ulcer of right medial buttock, stage 2, POA and Pressure ulcer of medial sacrum, stage 2, not POA -- Wound care consulted DVT PROPHYLAXIS: aspirin BID per Ortho DISPOSITION ; per Ortho will need SNF for continued PT/wound care /IV Abx Awaiting acceptance
[2016-12-07] MEDS ORDERED: PROMETHAZINE HCL INJ 12.5 MG in SODIUM CHLORIDE 0.9% 50ML 50 ML IV STA (14:46)
[2016-12-07 15:07] VITALS: BP 144/80; PULSE 67; TEMP 36.5; O2SAT 98
[2016-12-07] MEDS ORDERED: WARFARIN SOD 5 MG TAB PO SCH (16:00)
[2016-12-07] MEDS: WARFARIN SOD 4 MG TAB PO SCH (17:10)
[2016-12-07] MEDS: SENNA 8.6 MG TAB PO SCH (19:59)
[2016-12-07 23:05] VITALS: BP 161/83; PULSE 74; TEMP 36.7; O2SAT 97
[2016-12-07 23:30] VITALS: BP 155/77
[2016-12-08 05:38] LABS: INR 2.2 (0.9-1.1); PROTHROMBIN TIME (PATIENT) 24.4 SECONDS (9.0-12.0)
[2016-12-08 06:35] LABS: BUN/CREATININE RATIO 11.3 (10-20); CREATININE 0.39 mg/dl (0.60-1.20); MAGNESIUM 1.5 mg/dl (1.8-2.4); POTASSIUM 3.3 mmol/L (3.5-5.1)
[2016-12-08 06:38] LABS: CALCIUM 8.2 mg/dl (8.5-10.1)
[2016-12-08 06:57] VITALS: BP 171/84; PULSE 69; TEMP 37; O2SAT 95
[2016-12-08] MEDS: ONDANSETRON INJ 2 MG/ML 2 ML VIAL IV PRN (07:54)
[2016-12-08] MEDS: ARGININE EXTRA NUTRITION DRINK 1 BOX PO SCH ×2 (07:55→16:49)
[2016-12-08 08:18] LABS: HEMATOCRIT 30.5 % (37-47); MEAN CELL VOLUME 88.7 fL (80-100); MEAN CORPUSCULAR HEMOGLOBIN 28.2 pg (25-34); MEAN CORPUSCULAR HGB CONC 31.8 g/dl (32-36); MEAN PLATELET VOLUME 8.1 fL (7.4-10.4); PLATELET COUNT 986 K/uL (130-400); RED BLOOD COUNT 3.44 M/uL (4.2-5.4); WHITE BLOOD COUNT 10.58 K/uL (4.8-10.8)
[2016-12-08] MEDS: DOCUSATE SODIUM 100 MG CAP PO SCH ×2 (09:22→20:21)
[2016-12-08] MEDS: INSULIN GLARGINE SOLOSTAR 100 UNITS/ML 3 ML PEN SC SCH ×2 (09:22→20:33)
[2016-12-08] MEDS: METOPROLOL TARTRATE 25 MG TAB PO SCH ×2 (09:23→20:23)
[2016-12-08] MEDS: MULTIVITAMIN TAB PO SCH (09:24)
[2016-12-08] MEDS: PANTOprazole SOD 40 MG TAB PO SCH (09:24)
[2016-12-08] MEDS: INSULIN ASPART 100 UNITS/ML 3 ML PEN SC SCH ×4 (09:33→20:32)
[2016-12-08] MEDS: FERROUS GLUCONATE 324 MG TAB PO SCH ×3 (09:34→16:49)
[2016-12-08] MEDS: SODIUM CHLORIDE 0.9% 1000ML 1,000 ML IV SCH ×2 (09:42→23:12)
[2016-12-08] MEDS: TRAMADOL HCL 50 MG TAB PO PRN ×2 (10:25→20:19)
[2016-12-08 11:22] VITALS: BP 156/88
[2016-12-08] MEDS: DAPTOmycin IV 600 MG in SODIUM CHLORIDE 0.9% 50ML 50 ML IV SCH (13:38)
[2016-12-08] MEDS: ACETAMINOPHEN 325 MG TAB PO PRN (13:38)
[2016-12-08] MEDS ORDERED: POTASSIUM CHLR 20 MEQ / WTR 20 MEQ in PREMIXED WATER 100 ML IV ONE (14:30)
[2016-12-08] MEDS: MAGNESIUM SULFATE 1GM / D5W 1 GM in PREMIXED IN D5W 100 ML IV SCH ×2 (14:30→16:48)
--- NOTE | 2016-12-08 14:41 | Surgery Progress Note ---
Surgery Progress Note Date of Service December 08, 2016. Subjective Patient resting comfortably, offers no complaints. Had CT over weekend which is suggestive of osteomyelitis in proximal left tibia. Had wound vac change this AM. Objective Vital Signs: Date Time Temp Pulse Resp B/P Pulse Ox O2 Delivery O2 Flow Rate FiO2 12/08/16 11:22 156/88 12/08/16 08:00 Room Air 12/08/16 06:57 37.0 69 17 171/84 95 Room Air 12/07/16 23:30 155/77 12/07/16 23:15 Room Air 12/07/16 23:05 36.7 74 18 161/83 97 Room Air 12/07/16 16:50 Room Air 12/07/16 15:07 36.5 67 16 144/80 98 Room Air General Appearance: WD/WN, no apparent distress Incision(s): findings (wound vac in place. Pictures from vac change today were observed revelaing granulation tissue and tissue necorsis in wound bed) Laboratory Results: Results Past 24 Hours Test 12/07/16 16:33 12/07/16 20:49 12/08/16 05:15 12/08/16 07:50 Range/Units Bedside Glucose 160 92 94 70-90 mg/dl Prothrombin Time 24.4 9.0-12.0 SECONDS Prothromb Time International Ratio 2.2 0.9-1.1 Sodium Level 135 136-145 mmol/L Potassium Level 3.3 3.5-5.1 mmol/L Chloride Level 99 98-107 mmol/L Carbon Dioxide Level 28 21-32 mmol/L Anion Gap 8.0 3-11 mmol/L Blood Urea Nitrogen 4 7-18 mg/dl Creatinine 0.39 0.60-1.20 mg/dl Est Creatinine Clear Calc Drug Dose 156.5 ml/min Estimated GFR () 126.0 Estimated GFR (Non- 108.7 BUN/Creatinine Ratio 11.3 10-20 Random Glucose 80 70-99 mg/dl Calcium Level 8.2 8.5-10.1 mg/dl Magnesium Level 1.5 1.8-2.4 mg/dl Test 12/08/16 07:56 12/08/16 11:50 Range/Units White Blood Count 10.58 4.8-10.8 K/uL Red Blood Count 3.44 4.2-5.4 M/uL Hemoglobin 9.7 12.0-16.0 g/dL Hematocrit 30.5 37-47 % Mean Corpuscular Volume 88.7 80-100 fL Mean Corpuscular Hemoglobin 28.2 25-34 pg Mean Corpuscular Hemoglobin Concent 31.8 32-36 g/dl RDW Standard Deviation 49.3 36.4-46.3 fL RDW Coefficient of Variation 15.2 11.5-14.5 % Platelet Count 986 130-400 K/uL Mean Platelet Volume 8.1 7.4-10.4 fL Bedside Glucose 115 70-90 mg/dl Assessment & Plan Left knee wound status post infected left total knee arthroplasty in a patient with diabetes and peripheral arterial disease. She is currently non-weight bearing on left leg. Pressure points located along left foot 1. Evidence of granulation tissue in wound bed. However, with thick drainage from wound there is concern for ongoing infection and possibility of osteomyelitis. CT scan suggestive of osteomyelitis in proximal left tibia 2. Continue with irrigating wound vac- settings per wound care team 3. At this point, with consideration of patient's poor vascular status, poor nutrition intake and question of osteomyelitis, she is a poor surgical candidate. Could reconsider graft vs flap closure in future if her status changes. Will sign off, please call with any questions. Agree with Ms. Lei's note. Not currently a candidate for reconstruction in light of persistent infection.
--- NOTE | 2016-12-08 15:22 | Progress Note ---
Subjective Date of Service: December 08, 2016. Subjective Pt evaluation today including: conversation w/ patient, physical exam, lab review, review of studies, review of inpatient medication list Saw/examined the patient in room 382 She's doing okay today; +nauseous this morning + constipation as well Review of Systems Constitutional: No chills, No fever Respiratory: No cough, No shortness of breath, No sputum Cardiac: No chest pain Abdomen: + constipation, + nausea, + vomiting, No diarrhea, No pain Musculoskeletal: + joint pain (pain at L knee) Medications Current Inpatient Medications Medications (Trade) Dose Ordered Sig/Denisse Route Start Time Stop Time Status Last Admin Dose Admin Pantoprazole Sodium (Protonix Tab) 40 mg QAM PO 11/14/16 09:00 12/14/16 08:59 12/08/16 09:24 40 MG Acetaminophen (Tylenol Tab) 650 mg Q4H PRN PO 11/13/16 13:00 12/13/16 12:59 12/08/16 13:38 650 MG Docusate Sodium (coLACE CAP) 100 mg BID PO 11/13/16 21:00 12/13/16 20:59 12/08/16 09:22 100 MG Folic Acid (Folvite Tab) 1 mg DAILY PO 11/14/16 09:00 12/14/16 08:59 12/08/16 09:24 1 MG Tramadol HCl 50 mg 50 mg Q4H PRN PO 11/13/16 13:00 12/13/16 12:59 12/08/16 10:25 50 MG Daptomycin/Sodium Chloride (Cubicin IV/Nss 50ml) 62 ml @ 120 mls/hr Q24H IV 11/13/16 14:00 12/25/16 13:59 12/08/16 13:38 120 MLS/HR Glucose (Glucose 40% Gel) 15-30 GRAMS 15 GRAMS... UD PRN PO 11/13/16 14:30 12/13/16 14:29 Glucose (Glucose Chew Tab) 4-8 Tablets 4 Tabl... UD PRN PO 11/13/16 14:30 12/13/16 14:29 Dextrose (Dextrose 50% 50ML Syringe) 25-50ML OF 50% DW IV FOR... UD PRN IV 11/13/16 14:30 12/13/16 14:29 11/16/16 16:36 50 ML Glucagon (Glucagon Inj) 1 mg UD PRN SQ 11/13/16 14:30 12/13/16 14:29 Magnesium Hydroxide (Milk Of Magnesia Susp) 30 ml Q6H PRN PO 11/14/16 11:45 12/14/16 11:44 12/03/16 09:37 30 ML Bisacodyl (Dulcolax Supp) 10 mg DAILY PRN [place] 11/14/16 11:45 12/14/16 11:44 Senna (Senokot Tab) 17.2 mg HS PO 11/14/16 21:00 12/14/16 20:59 12/07/16 19:59 17.2 MG Diphenhydramine HCl (Benadryl Inj) 25 mg Q8H PRN IV 11/14/16 11:45 12/14/16 11:44 Al Hydrox/Mg Hydrox/Simethicone (Maalox Max Susp) 15 ml Q4H PRN PO 11/14/16 11:45 12/14/16 11:44 Multivitamins (Multivitamin Tab) 1 tab QAM PO 11/15/16 09:00 12/15/16 08:59 12/08/16 09:24 1 TAB Ondansetron HCl (Zofran Inj) 4 mg Q6H PRN IV 11/14/16 11:45 12/14/16 11:44 12/08/16 07:54 4 MG Ferrous Gluconate (Ferrous Gluconate Tab) 324 mg TIDM PO 11/14/16 12:30 12/14/16 12:29 12/08/16 12:55 324 MG Heparin Sodium (Porcine) (Heparin 10 Unit/ ml 5 ml Flush) 5 ml PRN PRN FLUSH 11/15/16 01:30 12/15/16 01:29 12/06/16 05:56 5 ML Insulin Aspart (novoLOG ASPART) SLIDING SCALE ACHS SC 11/15/16 16:00 12/15/16 15:59 12/08/16 12:57 1 UNITS Miconazole Nitrate (Desenex Powder) 1 appln BID PRN EXT 11/16/16 17:00 12/16/16 16:59 11/21/16 10:09 1 APPLN Metoprolol Tartrate (Lopressor Tab) 37.5 mg BID PO 11/30/16 21:00 12/30/16 20:59 12/08/16 09:23 37.5 MG Insulin Glargine (Lantus Solostar Pen) 9 unit BID SC 12/01/16 09:00 12/31/16 08:59 12/08/16 09:22 9 UNIT Collagenase (Santyl Oint) 1 appln UD EXT 12/01/16 13:00 12/31/16 12:59 Ioversol (Optiray 320) 100 ml UD PRN IV 12/05/16 14:30 12/09/16 14:29 Enteral Nutritional Formula 1 box 1 box BIDM PO 12/05/16 17:45 01/04/17 17:44 12/08/16 07:55 1 BOX Sodium Chloride (Nss 1000ml) 1,000 ml @ 80 mls/hr [id number] IV 12/06/16 14:45 12/08/16 09:42 80 MLS/HR Warfarin Sodium 4 mg 4 mg DAILY@16 PO 12/07/16 16:00 01/06/17 15:59 12/07/16 17:10 4 MG Promethazine HCl 12.5 mg/Sodium Chloride 50.5 ml @ 204 mls/hr Q6H PRN IV 12/07/16 15:00 01/06/17 14:59 Magnesium Sulfate 1 gm/Prmx 100 ml @ 100 mls/hr Q1H IV 12/08/16 14:30 12/08/16 16:29 12/08/16 14:30 100 MLS/HR Potassium Chloride/Prmx (Kcl 20 Meq / Wtr/Premixed Water) 100 ml @ 50 mls/hr NOW ONCE IV 12/08/16 14:30 12/08/16 16:29 Polyethylene (Miralax Powder Packet) 17 gm DAILY PO 12/09/16 09:00 01/08/17 08:59 Objective Vital Signs Date Time Temp Pulse Resp B/P Pulse Ox O2 Delivery O2 Flow Rate FiO2 12/08/16 11:22 156/88 12/08/16 08:00 Room Air 12/08/16 06:57 37.0 69 17 171/84 95 Room Air 12/07/16 23:30 155/77 12/07/16 23:15 Room Air 12/07/16 23:05 36.7 74 18 161/83 97 Room Air 12/07/16 16:50 Room Air Physical Exam General Appearance: no apparent distress Respiratory/Chest: no respiratory distress, no accessory muscle use Abdomen: normal bowel sounds, non tender, soft Extremities: + pertinent finding (R BKA, L knee wound vac ) Laboratory Results Last 24 Hours Test 12/07/16 16:33 12/07/16 20:49 12/08/16 05:15 12/08/16 07:50 Bedside Glucose 160 mg/dl 92 mg/dl 94 mg/dl Prothrombin Time 24.4 SECONDS Prothromb Time International Ratio 2.2 Sodium Level 135 mmol/L Potassium Level 3.3 mmol/L Chloride Level 99 mmol/L Carbon Dioxide Level 28 mmol/L Anion Gap 8.0 mmol/L Blood Urea Nitrogen 4 mg/dl Creatinine 0.39 mg/dl Est Creatinine Clear Calc Drug Dose 156.5 ml/min Estimated GFR () 126.0 Estimated GFR (Non- 108.7 BUN/Creatinine Ratio 11.3 Random Glucose 80 mg/dl Calcium Level 8.2 mg/dl Magnesium Level 1.5 mg/dl Test 12/08/16 07:56 12/08/16 11:50 White Blood Count 10.58 K/uL Red Blood Count 3.44 M/uL Hemoglobin 9.7 g/dL Hematocrit 30.5 % Mean Corpuscular Volume 88.7 fL Mean Corpuscular Hemoglobin 28.2 pg Mean Corpuscular Hemoglobin Concent 31.8 g/dl RDW Standard Deviation 49.3 fL RDW Coefficient of Variation 15.2 % Platelet Count 986 K/uL Mean Platelet Volume 8.1 fL Bedside Glucose 115 mg/dl Assessment and Plan SEPSIS with SEPTIC ARTHRITIS LEFT KNEE MRSA BACTEREMIA 12/08 not a good surgical candidate continue IV antibiotics further management as per wound care 12/07 continue Daptomycin d/c planning to fdc for IV antibiotics 12/06 CT worrisome for osteomyelitis continue Daptomycin at least 6 week total course due to MRSA infection in the synovial fluid and blood culture orthopedic surgery and wound care involved - wound vac in place will check CBC, CMP, ESR, CPK next week as per ID PICC line in place - d/c to facility difficult due to cost of the Daptomycin discharge planning - case reviewer aware 12/[address] of LE pending 12/03 continue Dapto Wound vac changed M-W-F no surgical intervention at this time 12/01 wound vac has been replaced today ID = IV dapto x 6 weeks wound care and orthopedic on board for further management 11/29 IV dapto x 6 weeks wound vac wound care + orthopedic regarding further care 11/28 non-excisional debridement today wound vac changed today as per wound care continuing traditional wound vac at this point will need a total of 6 weeks of daptomycin as per ID d/c plan to SNF s/p I&D and removal of implants with insertion of antibiotic spacer on 11/14 POD # 12 on wound vac -changed today by Dr Ma form continuous irrigation mode to traditional wound vac setting w will need continued follow up at wound care clinic for wound care and wound vac management Synovial fluid culture growth MRSA Blood culture -staph aureus /MRSA recent blood cultures on 11/14/16 - no growth to date appreciate ID eval Recommend to Continue daptomycin for 6 weeks will need weekly CBC ,CMP , ESR , CPK check while on daptomycin . Will need continued ID follow up on discharge ECHO : no valvular vegetation noted PICC line placed will need arrangements for IV Daptomycin at [facility] for 6 weeks updated by CM placement in SNF is difficult as IV Daptomycin being very expensive pt is allergic to Vancomycin D/w ID no effective option is available to adequately treat MRSA Sepsis / septic knee Case management updated LEFT LOWER EXT DVT 12/08 s/p IVC filter Coumadin 4mg check INR in AM and adjust dose accordingly (goal INR of 2-2.5) 12/07 INR is now 2.0 decrease dose to 4mg today s/p IVC filter 12/06 patient has a left lower extremity DVT s/p IVC filter now on Coumadin increased Coumadin to 5mg daily due to subtherapeutic INR check INR in AM 12/05 continue Coumadin 4mg and check INR in AM 12/03 4mg of Coumadin recheck INR, increase Coumadin dose on 12/04 12/02 4mg of Coumadin tonight 12/01 increased Coumadin dose to 4mg daily check INR in AM 11/29 now on Coumadin check INR in AM 11/28 Patient is on Coumadin now s/p IVC filter in place will check INR in AM monitor for any bleeding; low threshold to stop Coumadin due to bleeding risk as well as anemia USG of left lower ext : IMPRESSION: Acute deep venous thrombosis progressive from the prior study of 10/20/2016 pt already has IVC filter placed D/w Dr Hogan Vascular surgery -no other vascular intervention can be done as IVC filter is present already recommend to treat pt with therapeutic anticoagulation -if OK with Ortho team Case D/w Ortho pt was on Aspirin 81 mg PO BID for DVT prophylaxis -not effective -as progression of DVT seen in L lower ext USG Ok start pt on Coumadin ( pt is almost 2 weeks post op ) given chronic anemia , and required 4 units PRBC transfusion high risk for bleeding complication will avoid bridge therapy Coumadin low dose 2 mg daily , follow PT /INR goal to keep INR between 2-2.5 D/C Aspirin ACUTE BLOOD LOSS ANEMIA - s/p 4 units PRBCs 12/06 patient has received four units of PRBCs during this admission her H/H remains stable and no need for further transfusion at this time monitor H/H 12/02 H/H stable 11/29 Hgb up to 8.6 will monitor and transfuse if < 7 or if symptomatic 11/28 Hgb is trending down to 8.1 Wound vac still draining blood s/p debridement on 11/28 now on Coumadin monitor H/H and INR may need to stop Coumadin and go back to aspirin -s/p transfused 4units PRBC's -Hgb stable follow CBC daily as pt is started on Coumadin HTN 12/06 blood pressures better controlled with metoprolol 37.5mg BID may need to increase it to 50mg BID if blood pressures continue to fluctuate 12/02 blood pressure improved, continue to give metoprolol 37.5mg BID 12/01 blood pressure had been elevated metoprolol increased to 37.5mg BID 11/28 blood pressure labile, as it keeps trending upwards monitor and we may need to adjust the dose of medications LOW URINE OUT PUT 12/06 patient has low urine output, likely due to decreased PO intake/nausea patient looks dehydrated IVFs restarted, monitor ATRIAL FIBRILLATION cont on Beta jodie DM2 -hold glipizide -can be resumed on discharge -insulin coverage -glycemic pharmacy consulted PRESSURE ULCERS Pressure ulcer of right medial buttock, stage 2, POA and Pressure ulcer of medial sacrum, stage 2, not POA -- Wound care consulted DVT PROPHYLAXIS: aspirin BID per Ortho DISPOSITION ; per Ortho will need SNF for continued PT/wound care /IV Abx Awaiting acceptance
[2016-12-08 15:31] VITALS: BP 159/83; PULSE 67; TEMP 37.2; O2SAT 97
--- NOTE | 2016-12-08 15:56 | Orthopedic Progress Note ---
Orthopedic Progress Note Date of Service December 08, 2016. Subjective Additional Notes: Pt awake, alert. Discussed today's wound vac change. Dr Ibarra reviewing CT scan of the left knee. Photos today from wound vac change show some increased slough on upper portion of the wound now that is enlarging. Spoke with Juanita Genao RN (wound care) who states that she continues to have drainage from the medial side of the distal wound. New irrigation wound vac placed back on. Objective Right BKA wound healing well. L Knee wound vac on and functioning. Date Time Temp Pulse Resp B/P Pulse Ox O2 Delivery O2 Flow Rate FiO2 12/08/16 15:31 37.2 67 18 159/83 97 Room Air 12/08/16 11:22 156/88 12/08/16 08:00 Room Air 12/08/16 06:57 37.0 69 17 171/84 95 Room Air 12/07/16 23:30 155/77 12/07/16 23:15 Room Air 12/07/16 23:05 36.7 74 18 161/83 97 Room Air 12/07/16 16:50 Room Air Laboratory Results 24 Hours: Test 12/08/16 05:15 12/08/16 07:56 Prothromb Time International Ratio 2.2 Prothrombin Time 24.4 SECONDS Hematocrit 30.5 % Hemoglobin 9.7 g/dL Assessment & Plan Assessment: SEPTIC ARTHRITIS LEFT TOTAL KNEE ARTHROPLASTY - Appreciate Medical Management [facility] - s/p I&D, removal total knee implant, placement of antibiotic spacer. - Appreciate ID Consult, currently on Daptomycin. - pt will need possible placement but doubtful due to cost of Daptomycin - Irrigation wound vac reapplied today. Pressure increased to 150ml. - Zofran for nausea. Not taking narcotics presently. - Dr Ma currently away on vacation. - Appreciate input from Plastics - Overall, LLE wound does not seem to be improving. Dr Ibarra to decide on further surgery. LLE DVT - Coumadin : IVC filter placed AFib DM2 HTN (1) Infection of total left knee replacement (2) MRSA (methicillin resistant Staphylococcus aureus) septicemia (3) Leukocytosis Inhouse Planning Pain Management: Ultram, PO Tylenol DVT Prophylaxis: TEDs, SCDs, Coumadin, other (IVC Filter) Discharge Planning Discharge Planning: halfway facility
[2016-12-08] MEDS: WARFARIN SOD 4 MG TAB PO SCH (16:51)
[2016-12-08] MEDS: MAGNESIUM HYDROXIDE SUSP 30 ML UDC PO PRN (18:46)
[2016-12-08] MEDS: SENNA 8.6 MG TAB PO SCH (20:22)
[2016-12-08 23:05] VITALS: BP 148/84; PULSE 73; TEMP 37; O2SAT 96
[2016-12-09] MEDS: TRAMADOL HCL 50 MG TAB PO PRN ×3 (00:38→19:31)
[2016-12-09 05:47] LABS: HEMATOCRIT 29.9 % (37-47); MEAN CORPUSCULAR HGB CONC 31.4 g/dl (32-36); MEAN PLATELET VOLUME 8.4 fL (7.4-10.4); PLATELET COUNT 874 K/uL (130-400); RED BLOOD COUNT 3.36 M/uL (4.2-5.4); WHITE BLOOD COUNT 9.19 K/uL (4.8-10.8)
[2016-12-09 05:55] LABS: INR 2.5 (0.9-1.1)
[2016-12-09 06:12] LABS: BUN/CREATININE RATIO 15.5 (10-20); CREATININE 0.48 mg/dl (0.60-1.20); POTASSIUM 3.6 mmol/L (3.5-5.1)
[2016-12-09 06:47] VITALS: BP 172/82; PULSE 71; TEMP 36.9; O2SAT 98
[2016-12-09] MEDS: DOCUSATE SODIUM 100 MG CAP PO SCH ×2 (08:04→21:02)
[2016-12-09] MEDS: ARGININE EXTRA NUTRITION DRINK 1 BOX PO SCH ×2 (08:04→18:10)
[2016-12-09] MEDS: ONDANSETRON INJ 2 MG/ML 2 ML VIAL IV PRN (08:04)
[2016-12-09] MEDS: METOPROLOL TARTRATE 25 MG TAB PO SCH ×2 (08:05→21:01)
[2016-12-09] MEDS: PANTOprazole SOD 40 MG TAB PO SCH (08:06)
[2016-12-09] MEDS: MULTIVITAMIN TAB PO SCH (08:06)
[2016-12-09] MEDS: POLYETHYLENE (MIRALAX) 17 GM PACK PO SCH (08:07)
[2016-12-09] MEDS: FERROUS GLUCONATE 324 MG TAB PO SCH ×3 (08:07→16:02)
[2016-12-09] MEDS: INSULIN GLARGINE SOLOSTAR 100 UNITS/ML 3 ML PEN SC SCH ×2 (08:11→21:07)
[2016-12-09] MEDS: INSULIN ASPART 100 UNITS/ML 3 ML PEN SC SCH ×4 (08:51→21:06)
[2016-12-09] MEDS: SODIUM CHLORIDE 0.9% 1000ML 1,000 ML IV SCH ×2 (11:59→23:57)
--- NOTE | 2016-12-09 12:30 | Progress Note ---
Subjective Date of Service: December 09, 2016. Subjective Pt evaluation today including: conversation w/ patient, physical exam, lab review, review of studies, review of inpatient medication list Saw/examined the patient in room 382 She is nauseous this morning did have a bowel movement pain controlled Review of Systems Constitutional: + weakness Respiratory: No cough, No shortness of breath, No sputum Cardiac: No chest pain Abdomen: + nausea, + vomiting, No diarrhea, No pain Musculoskeletal: + joint pain (controlled with medications) Medications Current Inpatient Medications Medications (Trade) Dose Ordered Sig/Denisse Route Start Time Stop Time Status Last Admin Dose Admin Pantoprazole Sodium (Protonix Tab) 40 mg QAM PO 11/14/16 09:00 12/14/16 08:59 12/09/16 08:06 40 MG Acetaminophen (Tylenol Tab) 650 mg Q4H PRN PO 11/13/16 13:00 12/13/16 12:59 12/08/16 13:38 650 MG Docusate Sodium (coLACE CAP) 100 mg BID PO 11/13/16 21:00 12/13/16 20:59 12/09/16 08:04 100 MG Folic Acid (Folvite Tab) 1 mg DAILY PO 11/14/16 09:00 12/14/16 08:59 12/09/16 08:06 1 MG Tramadol HCl 50 mg 50 mg Q4H PRN PO 11/13/16 13:00 12/13/16 12:59 12/09/16 08:04 50 MG Daptomycin/Sodium Chloride (Cubicin IV/Nss 50ml) 62 ml @ 120 mls/hr Q24H IV 11/13/16 14:00 12/25/16 13:59 12/08/16 13:38 120 MLS/HR Glucose (Glucose 40% Gel) 15-30 GRAMS 15 GRAMS... UD PRN PO 11/13/16 14:30 12/13/16 14:29 Glucose (Glucose Chew Tab) 4-8 Tablets 4 Tabl... UD PRN PO 11/13/16 14:30 12/13/16 14:29 Dextrose (Dextrose 50% 50ML Syringe) 25-50ML OF 50% DW IV FOR... UD PRN IV 11/13/16 14:30 12/13/16 14:29 11/16/16 16:36 50 ML Glucagon (Glucagon Inj) 1 mg UD PRN SQ 11/13/16 14:30 12/13/16 14:29 Magnesium Hydroxide (Milk Of Magnesia Susp) 30 ml Q6H PRN PO 11/14/16 11:45 12/14/16 11:44 12/08/16 18:46 30 ML Bisacodyl (Dulcolax Supp) 10 mg DAILY PRN OK 11/14/16 11:45 12/14/16 11:44 Senna (Senokot Tab) 17.2 mg HS PO 11/14/16 21:00 12/14/16 20:59 12/08/16 20:22 17.2 MG Diphenhydramine HCl (Benadryl Inj) 25 mg Q8H PRN IV 11/14/16 11:45 12/14/16 11:44 Al Hydrox/Mg Hydrox/Simethicone (Maalox Max Susp) 15 ml Q4H PRN PO 11/14/16 11:45 12/14/16 11:44 Multivitamins (Multivitamin Tab) 1 tab QAM PO 11/15/16 09:00 12/15/16 08:59 12/09/16 08:06 1 TAB Ondansetron HCl (Zofran Inj) 4 mg Q6H PRN IV 11/14/16 11:45 12/14/16 11:44 12/09/16 08:04 4 MG Ferrous Gluconate (Ferrous Gluconate Tab) 324 mg TIDM PO 11/14/16 12:30 12/14/16 12:29 12/09/16 08:07 324 MG Heparin Sodium (Porcine) (Heparin 10 Unit/ ml 5 ml Flush) 5 ml PRN PRN FLUSH 11/15/16 01:30 12/15/16 01:29 12/06/16 05:56 5 ML Insulin Aspart (novoLOG ASPART) SLIDING SCALE ACHS SC 11/15/16 16:00 12/15/16 15:59 12/09/16 08:51 3 UNITS Miconazole Nitrate (Desenex Powder) 1 appln BID PRN EXT 11/16/16 17:00 12/16/16 16:59 11/21/16 10:09 1 APPLN Metoprolol Tartrate (Lopressor Tab) 37.5 mg BID PO 11/30/16 21:00 12/30/16 20:59 12/09/16 08:05 37.5 MG Insulin Glargine (Lantus Solostar Pen) 9 unit BID SC 12/01/16 09:00 12/31/16 08:59 12/09/16 08:11 9 UNIT Collagenase (Santyl Oint) 1 appln UD EXT 12/01/16 13:00 12/31/16 12:59 Ioversol (Optiray 320) 100 ml UD PRN IV 12/05/16 14:30 12/09/16 14:29 Enteral Nutritional Formula 1 box 1 box BIDM PO 12/05/16 17:45 01/04/17 17:44 12/09/16 08:04 1 BOX Sodium Chloride (Nss 1000ml) 1,000 ml @ 80 mls/hr [id number] IV 12/06/16 14:45 12/09/16 11:59 80 MLS/HR Warfarin Sodium 4 mg 4 mg DAILY@16 PO 12/07/16 16:00 01/06/17 15:59 12/08/16 16:51 4 MG Promethazine HCl/ Sodium Chloride (Phenergan Inj/ Nss 50ml) 50.5 ml @ 204 mls/hr Q6H PRN IV 12/07/16 15:00 01/06/17 14:59 Polyethylene (Miralax Powder Packet) 17 gm DAILY PO 12/09/16 09:00 01/08/17 08:59 12/09/16 08:07 17 GM Objective Vital Signs Date Time Temp Pulse Resp B/P Pulse Ox O2 Delivery O2 Flow Rate FiO2 12/09/16 08:00 Room Air 12/09/16 06:47 36.9 71 17 172/82 98 Room Air 12/08/16 23:05 37.0 73 18 148/84 96 Room Air 12/08/16 23:00 Room Air 12/08/16 16:15 Room Air 12/08/16 15:31 37.2 67 18 159/83 97 Room Air Physical Exam General Appearance: no apparent distress Respiratory/Chest: lungs clear, normal breath sounds, no respiratory distress, no accessory muscle use Cardiovascular: regular rate, rhythm, no edema, no murmur Abdomen: + pertinent finding (R BKA, L knee wound vac) Laboratory Results Last 24 Hours Test 12/08/16 16:52 5/1/17 20:28 12/09/16 05:25 12/09/16 08:05 Bedside Glucose 166 mg/dl 196 mg/dl 163 mg/dl White Blood Count 9.19 K/uL Red Blood Count 3.36 M/uL Hemoglobin 9.4 g/dL Hematocrit 29.9 % Mean Corpuscular Volume 89.0 fL Mean Corpuscular Hemoglobin 28.0 pg Mean Corpuscular Hemoglobin Concent 31.4 g/dl RDW Standard Deviation 49.4 fL RDW Coefficient of Variation 15.2 % Platelet Count 874 K/uL Mean Platelet Volume 8.4 fL Prothrombin Time 28.0 SECONDS Prothromb Time International Ratio 2.5 Sodium Level 137 mmol/L Potassium Level 3.6 mmol/L Chloride Level 101 mmol/L Carbon Dioxide Level 30 mmol/L Anion Gap 6.0 mmol/L Blood Urea Nitrogen 7 mg/dl Creatinine 0.48 mg/dl Est Creatinine Clear Calc Drug Dose 127.2 ml/min Estimated GFR () 117.6 Estimated GFR (Non- 101.5 BUN/Creatinine Ratio 15.5 Random Glucose 163 mg/dl Calcium Level 8.0 mg/dl Test 12/09/16 11:53 Bedside Glucose 189 mg/dl Assessment and Plan SEPSIS with SEPTIC ARTHRITIS LEFT KNEE MRSA BACTEREMIA 12/09 appreciate ortho input possible surgical intervention? 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 12/[address] of LE pending 12/03 continue Dapto Wound vac changed M-- no surgical intervention at this time 12/01 wound vac has been replaced today ID = IV dapto x 6 weeks wound care and orthopedic on board for further management 11/29 IV dapto x 6 weeks wound vac wound care + orthopedic regarding further care 11/28 non-excisional debridement today wound vac changed today as per wound care continuing traditional wound vac at this point will need a total of 6 weeks of daptomycin as per ID d/c plan to SNF s/p I&D and removal of implants with insertion of antibiotic spacer on 11/14 POD # 12 on wound vac -changed today by Dr Ma form continuous irrigation mode to traditional wound vac setting w will need continued follow up at wound care clinic for wound care and wound vac management Synovial fluid culture growth MRSA Blood culture -staph aureus /MRSA recent blood cultures on 11/14/16 - no growth to date appreciate ID eval Recommend to Continue daptomycin for 6 weeks will need weekly CBC ,CMP , ESR , CPK check while on daptomycin . Will need continued ID follow up on discharge ECHO : no valvular vegetation noted PICC line placed will need arrangements for IV Daptomycin at [facility] for 6 weeks updated by CM placement in SNF is difficult as IV Daptomycin being very expensive pt is allergic to Vancomycin D/w ID no effective option is available to adequately treat MRSA Sepsis / septic knee Case management updated LEFT LOWER EXT DVT 12/09 Coumadin 4mg s/p IVC filter goal INR of 2.0-2.5 12/08 s/p IVC filter Coumadin 4mg check INR in AM and adjust dose accordingly (goal INR of 2-2.5) 12/07 INR is now 2.0 decrease dose to 4mg today s/p IVC filter 12/06 patient has a left lower extremity DVT s/p IVC filter now on Coumadin increased Coumadin to 5mg daily due to subtherapeutic INR check INR in AM 12/05 continue Coumadin 4mg and check INR in AM 12/03 4mg of Coumadin recheck INR, increase Coumadin dose on 12/04 12/02 4mg of Coumadin tonight 12/01 increased Coumadin dose to 4mg daily check INR in AM 11/29 now on Coumadin check INR in AM 11/28 Patient is on Coumadin now s/p IVC filter in place will check INR in AM monitor for any bleeding; low threshold to stop Coumadin due to bleeding risk as well as anemia USG of left lower ext : IMPRESSION: Acute deep venous thrombosis progressive from the prior study of 10/20/2016 pt already has IVC filter placed D/w Dr Hogan Vascular surgery -no other vascular intervention can be done as IVC filter is present already recommend to treat pt with therapeutic anticoagulation -if OK with Ortho team Case D/w Ortho pt was on Aspirin 81 mg PO BID for DVT prophylaxis -not effective -as progression of DVT seen in L lower ext USG Ok start pt on Coumadin ( pt is almost 2 weeks post op ) given chronic anemia , and required 4 units PRBC transfusion high risk for bleeding complication will avoid bridge therapy Coumadin low dose 2 mg daily , follow PT /INR goal to keep INR between 2-2.5 D/C Aspirin ACUTE BLOOD LOSS ANEMIA - s/p 4 units PRBCs 12/06 patient has received four units of PRBCs during this admission her H/H remains stable and no need for further transfusion at this time monitor H/H 12/02 H/H stable 11/29 Hgb up to 8.6 will monitor and transfuse if < 7 or if symptomatic 11/28 Hgb is trending down to 8.1 Wound vac still draining blood s/p debridement on 11/28 now on Coumadin monitor H/H and INR may need to stop Coumadin and go back to aspirin -s/p transfused 4units PRBC's -Hgb stable follow CBC daily as pt is started on Coumadin HTN 12/06 blood pressures better controlled with metoprolol 37.5mg BID may need to increase it to 50mg BID if blood pressures continue to fluctuate 12/02 blood pressure improved, continue to give metoprolol 37.5mg BID 12/01 blood pressure had been elevated metoprolol increased to 37.5mg BID 11/28 blood pressure labile, as it keeps trending upwards monitor and we may need to adjust the dose of medications LOW URINE OUT PUT 12/06 patient has low urine output, likely due to decreased PO intake/nausea patient looks dehydrated IVFs restarted, monitor ATRIAL FIBRILLATION cont on Beta jodie DM2 -hold glipizide -can be resumed on discharge -insulin coverage -glycemic pharmacy consulted PRESSURE ULCERS Pressure ulcer of right medial buttock, stage 2, POA and Pressure ulcer of medial sacrum, stage 2, not POA -- Wound care consulted DVT PROPHYLAXIS: aspirin BID per Ortho DISPOSITION ; per Ortho will need SNF for continued PT/wound care /IV Abx Awaiting acceptance
[2016-12-09] MEDS: DAPTOmycin IV 600 MG in SODIUM CHLORIDE 0.9% 50ML 50 ML IV SCH (14:11)
--- NOTE | 2016-12-09 14:38 | Orthopedic Progress Note ---
Orthopedic Progress Note Date of Service December 09, 2016. Subjective Additional Notes: No new complaints. Discussed infection process with knee. Dr Ibarra leaning towards AKA. Objective A&O x3 Left Wound Vac on and functioning. Proximal incision looks a little worse to me compared to yesterday. R BKA incision benign. Date Time Temp Pulse Resp B/P Pulse Ox O2 Delivery O2 Flow Rate FiO2 12/09/16 08:00 Room Air 12/09/16 06:47 36.9 71 17 172/82 98 Room Air 12/08/16 23:05 37.0 73 18 148/84 96 Room Air 12/08/16 23:00 Room Air 12/08/16 16:15 Room Air 12/08/16 15:31 37.2 67 18 159/83 97 Room Air Laboratory Results 24 Hours: Test 12/09/16 05:25 Hematocrit 29.9 % Hemoglobin 9.4 g/dL Prothromb Time International Ratio 2.5 Prothrombin Time 28.0 SECONDS Assessment & Plan Assessment: SEPTIC ARTHRITIS LEFT TOTAL KNEE ARTHROPLASTY - [facility]p [facility], removal total knee implant, placement of antibiotic spacer. - Appreciate ID Consult, currently on Daptomycin. - pt will need possible placement but doubtful due to cost of Daptomycin - Irrigation wound vac reapplied today. Pressure increased to 150ml. - Zofran for nausea. Not taking narcotics presently. - Dr Ma currently away on vacation. - Appreciate input from Plastics - Overall, LLE wound does not seem to be improving. Dr Ibarra to decide on further surgery. Pt will need to be off of her Coumadin with INR down to 1.5 when decision for type of surgery needed. LLE DVT - Coumadin : IVC filter placed AFib DM2 HTN (1) Infection of total left knee replacement (2) MRSA (methicillin resistant Staphylococcus aureus) septicemia (3) Leukocytosis Inhouse Planning Pain Management: Ultram, PO Tylenol DVT Prophylaxis: TEDs, SCDs, Coumadin, other (IVC Filter) Discharge Planning Discharge Planning: intermediate facility
[2016-12-09 15:30] VITALS: BP 144/73; PULSE 80; TEMP 36.6; O2SAT 97
[2016-12-09] MEDS: WARFARIN SOD 4 MG TAB PO SCH (16:00)
[2016-12-09 21:00] VITALS: BP 135/81; PULSE 80
[2016-12-09] MEDS: SENNA 8.6 MG TAB PO SCH (21:00)
[2016-12-09 23:05] VITALS: BP 145/76; PULSE 58; TEMP 36.7; O2SAT 96
[2016-12-10 05:28] LABS: HEMATOCRIT 27.4 % (37-47); MEAN CELL VOLUME 88.7 fL (80-100); MEAN CORPUSCULAR HEMOGLOBIN 27.5 pg (25-34); MEAN PLATELET VOLUME 8.3 fL (7.4-10.4); PLATELET COUNT 827 K/uL (130-400); RED BLOOD COUNT 3.09 M/uL (4.2-5.4); WHITE BLOOD COUNT 9.86 K/uL (4.8-10.8)
[2016-12-10 05:38] LABS: INR 2.2 (0.9-1.1); PROTHROMBIN TIME (PATIENT) 24.9 SECONDS (9.0-12.0)
[2016-12-10 05:54] LABS: BUN/CREATININE RATIO 23.3 (10-20); CALCIUM 7.6 mg/dl (8.5-10.1); CREATININE 0.55 mg/dl (0.60-1.20); POTASSIUM 3.5 mmol/L (3.5-5.1)
[2016-12-10 07:04] VITALS: BP 169/78; PULSE 77; TEMP 36.8; O2SAT 99
[2016-12-10 07:52] VITALS: BP 155/72; PULSE 84; TEMP 37; O2SAT 97
[2016-12-10] MEDS: TRAMADOL HCL 50 MG TAB PO PRN ×3 (08:40→20:37)
[2016-12-10] MEDS: ONDANSETRON INJ 2 MG/ML 2 ML VIAL IV PRN (08:40)
[2016-12-10] MEDS: ARGININE EXTRA NUTRITION DRINK 1 BOX PO SCH ×2 (08:41→18:27)
[2016-12-10] MEDS: PANTOprazole SOD 40 MG TAB PO SCH (08:41)
[2016-12-10] MEDS: MULTIVITAMIN TAB PO SCH (08:41)
[2016-12-10] MEDS: FERROUS GLUCONATE 324 MG TAB PO SCH ×3 (08:41→18:28)
[2016-12-10] MEDS: POLYETHYLENE (MIRALAX) 17 GM PACK PO SCH (08:41)
[2016-12-10] MEDS: DOCUSATE SODIUM 100 MG CAP PO SCH ×2 (08:42→20:33)
[2016-12-10] MEDS: METOPROLOL TARTRATE 25 MG TAB PO SCH ×2 (08:42→20:45)
[2016-12-10] MEDS: INSULIN ASPART 100 UNITS/ML 3 ML PEN SC SCH ×4 (08:50→21:08)
[2016-12-10] MEDS: INSULIN GLARGINE SOLOSTAR 100 UNITS/ML 3 ML PEN SC SCH ×2 (08:51→21:09)
[2016-12-10] MEDS: SODIUM CHLORIDE 0.9% 1000ML 1,000 ML IV SCH (13:18)
[2016-12-10] MEDS: DAPTOmycin IV 600 MG in SODIUM CHLORIDE 0.9% 50ML 50 ML IV SCH (13:21)
[2016-12-10 15:14] VITALS: BP 167/79; PULSE 78; TEMP 36.7; O2SAT 99
--- NOTE | 2016-12-10 15:14 | PROGRESS NOTE ---
DATE: 12/10/2016 ROOM: 382. HISTORY OF PRESENT ILLNESS: The patient with ongoing drainage. Drain VAC has been removed from her left anterior knee wound. She previously had a septic episode from right gangrenous foot, became septic into her left knee. She has had multiple washouts, wound VAC that was a large open wound with necrosis of skin. I discussed with Emani today as well as her family the options I really do not think further washout of this wound is going to allow her to save her knee and I think at this point I would recommend consideration for above knee amputation. I discussed this with the family today. I will also discuss this with Dr. Car as this is something that may be planned for this week on Thursday is my current understanding. The family is aware and the patient is aware and this will be the plan moving forward.
[2016-12-10 16:00] VITALS: O2SAT 99
[2016-12-10] MEDS: WARFARIN SOD 4 MG TAB PO SCH (16:43)
[2016-12-10] MEDS ORDERED: PHARMACY GLYCEMIC MGMT CONSULT PRN (17:53)
--- NOTE | 2016-12-10 18:52 | Pharmacy Progress Note ---
Glycemic Control: Progress Nt Date of Service December 10, 2016. Scope Glycemic Pharmacist RE-consulted by Dr Nichols on 12/10 for glycemic control and to write orders per [facility] inpatient glycemic control protocol. Objective Accuchecks BSG (last 24hrs): Test 12/09/16 20:08 12/10/16 05:15 12/10/16 08:03 12/10/16 11:50 Bedside Glucose 190 mg/dl (70-90) 200 mg/dl (70-90) 228 mg/dl (70-90) Random Glucose 210 mg/dl (70-99) Test 12/10/16 17:24 Bedside Glucose 177 mg/dl (70-90) Laboratory Data (last 24hrs) Test 12/10/16 05:15 Anion Gap 7.0 mmol/L BUN/Creatinine Ratio 23.3 Blood Urea Nitrogen 13 mg/dl Creatinine 0.55 mg/dl Potassium Level 3.5 mmol/L Sodium Level 136 mmol/L White Blood Count 9.86 K/uL Recent Pertinent Medications Outpatient Anti-diabetic Regimen: * Glipizide ER 10mg qAM, Novolog QID per SS, Lantus 18 units BID * A1c = 7.7 % 10/20/16 The patient is currently receiving: * Basal insulin: Lantus 9 units BID * Correctional Insulin: Novolog Correction per scale ACHS Goal Range: Low 110 mg/dL - High 140 mg/dL Correction Factor: 20 mg/dL/unit * Prandial insulin: 1 unit per 8 gm CHO consumed Risk Factors for Insulin Resistance: * Infection: Infected total knee replacement - has been on daptomycin since admission * Recent Surgery: L TKR 10/22/16; OR 11/14 for ABX spacer * Diet: type 2 diabetes - varying CHO intake w/ meals Assessment & Plan ASSESSMENT: * ADA & AACE recommend a goal blood sugar range 140-180 mg/dl for the majority of critically ill & non-critically ill patients. However, more stringent targets may be selected in individual cases. * 66 yo F with prolonged hospital stay for infected TKA / septic arthritis. Has been on daptomycin 6 mg/kg since admission almost 1 month ago * Pharmacy had signed off glycemic management on 12/04/16 as the patient's BSG's were well controlled on her current regimen. * Pharmacy was re-consulted for glycemic management as BSG's have abruptly increased as of 12/08/16. Etiology of this change is unclear but could be one or more of the following: * Arginine added as nutritional supplement (1st dose actually administered was 12/08/16) 2nd poor nutritional status / low albumin. This provides 52g CHO per serving. This has not been addressed in all CHO counts and is likely contributing to increased BSG's although is unlikely to be the sole contributing factor as pre-prandial BSG's / AM fasting BSG's have also been elevated * Daptomycin ADR - no CPK drawn x weeks * Worsening infection / acquired resistance to dapto as pt has been on x weeks. * Patient was previously very stable on current regimen. Will not make significant changes tonight, pending further workup of possible reasons for increased physiologic stress. Will only do the following: * Add overnight BSG check * Add reminder on Novolog order to cover CHO count in arginine * Add reminder on arginine order to obtain BSG prior to administration PLAN FOR INPATIENT GLYCEMIC CONTROL: * Hold outpatient oral diabetes medications * Add reminder on Novolog order to cover CHO count in arginine * Add reminder on arginine order to obtain BSG prior to administration * Basal insulin with LANTUS 9 units SQ BID * Correctional Insulin with NOVOLOG per scale ACHS or Q6hrs while NPO - add 0200 check * Goal Range: Low 110 mg/dL - High 140 mg/dL * Correction Factor: 20 mg/dL/unit * Nutritional / Prandial insulin per carb ratio of 1 unit per 8 grams CHO consumed * Please note that the plan above was derived based on current level of insulin resistance and hospital stress. These recommendations are appropriate for inpatient admission only. Plan of care upon discharge will need to be reassessed to avoid potential outpatient hypo/hyperglycemia. Thank you.
--- NOTE | 2016-12-10 20:24 | Progress Note ---
Medicine Progress Note Date & Time of Visit: December 10, 2016 at 19:10. Subjective 66 yo F with L knee recurrent infection--hospitalist team consulted for periooperative medical management -patient states that her pain is managed well -she is tolerating food well with an improved appetite in the last week -she is fine with the decision to proceed with AKA on Thursday -she is otherwise asymptomatic at this time denying chest pain, trouble breathing or other symptoms today. Objective Last 8 Hrs Date Time Temp Pulse Resp B/P Pulse Ox O2 Delivery O2 Flow Rate FiO2 12/10/16 16:00 99 Room Air 12/10/16 15:14 36.7 78 18 167/79 99 Room Air Physical Exam: GEN: WNWD, in no acute distress, alert and appropriate HEENT: NC/AT, normal sclerae CARDIO: reg rate, S1/2 heard without m/g/r LUNGS: CTA bilaterally, no crackles, rales or wheezes, good diaphragmatic excursion ABD: soft, non-tender, non-distended, no rebound or guarding EXTREMITY: L knee wrapped up with dressing intact, clean and dry. L foot with min sensation. R BKA incision healing well. Extremities are warm and appear well-perfused NEURO: CN 2-12 grossly intact, sensation reduced in LLE SKIN: warm and dry and L knee wound as above (with dressing in place, please defer to ortho exam.). Pressure ulcer-patient was eating dinner, so this not evaluated today. Please defer to daily skin assessment from nurses or wound care. Laboratory Results: Last 24 Hours Test 12/09/16 20:08 12/10/16 05:15 12/10/16 08:03 12/10/16 11:50 Bedside Glucose 190 mg/dl 200 mg/dl 228 mg/dl White Blood Count 9.86 K/uL Red Blood Count 3.09 M/uL Hemoglobin 8.5 g/dL Hematocrit 27.4 % Mean Corpuscular Volume 88.7 fL Mean Corpuscular Hemoglobin 27.5 pg Mean Corpuscular Hemoglobin Concent 31.0 g/dl RDW Standard Deviation 49.5 fL RDW Coefficient of Variation 15.4 % Platelet Count 827 K/uL Mean Platelet Volume 8.3 fL Prothrombin Time 24.9 SECONDS Prothromb Time International Ratio 2.2 Sodium Level 136 mmol/L Potassium Level 3.5 mmol/L Chloride Level 102 mmol/L Carbon Dioxide Level 27 mmol/L Anion Gap 7.0 mmol/L Blood Urea Nitrogen 13 mg/dl Creatinine 0.55 mg/dl Est Creatinine Clear Calc Drug Dose 111.0 ml/min Estimated GFR () 112.5 Estimated GFR (Non- 97.1 BUN/Creatinine Ratio 23.3 Random Glucose 210 mg/dl Calcium Level 7.6 mg/dl Test 12/10/16 17:24 Bedside Glucose 177 mg/dl Assessment & Plan Recent admission for septic arthritis for which she underwent and I&D and poly- exchange and was admitted for surgery on her left knee. She had a prolonged hospital course with sepsis 2/2 MRSA bacteremia, right foot necrosis requiring BKA and bilateral DVT with IVC filter placement in the presence of symptomatic anemia requiring blood transfusions. She was discharged to [facility] on IV Daptomycin via PICC line. She presented to Ortho office with worsening pain and drainage from the left knee. She was taken to the OR on 11/13 after L knee aspiration was concerninig for septic arthritis. While in the PACU she became hypotensive and tachycardic and she was given 3L of LR with phenylephrine with persistently low pressure, so was transferred to the ICU where her Cardizem and Metoprolol were put on hold. In the ICU she had episodes of rapid atrial fibrillation and responded well to an amiodarone bolus and drip which was then turned off. She was transferred to the floor on 11/17 and Cardizem was not restarted, but metoprolol was continued. In the first 3 days post-op, she required 4 total units of pRBCs, but her H/H has stayed stable since that time not requiring further transfusions since then. SEPSIS with SEPTIC ARTHRITIS LEFT KNEE W/PROSTHETIC JOINT MRSA BACTEREMIA -CT leg on 12/05 with findings as follows: comminuted, mildly displaced proximal left tibial fracture, moderate soft tissue gas adjacent to left knee which could be related to the open wound. However, a gas-forming infectious process could appear similar. Small left knee joint effusion. Small 2.2 x 0.9 cm rim enhancing fluid collection along the posterior aspect of the proximal left tibia. This is nonspecific in the postoperative setting but could reflect an abscess. Irregularity of the posterior cortex of the proximal left tibia. Given the clinical history, this is worrisome for osteomyelitis. -cont Dapto, would re-engage with ID team to ensure no Dapto resistance concerns and to make axel-operative recs for abx, CK for monitoring ordered for am -wound vac was withdrawn today after an attempt at more drainage of the wound this week -tentative plan for AKA on Thursday per Ortho -will re-engage with Cardiology regarding repeat preop evaluation based on events since admission -PICC line in place - historically in this admission d/c to facility noted to be difficult due to cost of the Daptomycin discharge planning - case planner aware LEFT LOWER EXT DVT: s/p IVC filter placement and now therapeutic on coumadin, hold coumadin now in preparation for AKA on Thursday, cont monitoring INR daily. Will likely need a dose of vitamin K 5mg IV preop as her liver synthetic function is very poor as evidenced by her very low albumin. Uncertain of time on Thursday for procedure, however, would time it so that she was given the vitamin K 8-10 hours prior to procedure. Should see the effect of this dose within 6-8 hours. Uncertain what need will be for coumadin post-op if poss removal of the clot with the leg? Still has PAF...? Will wait and see how things play out from the surgical perspective on this. Would re-engage with Cardiology regarding long-term anticoagulation in this patient. ACUTE BLOOD LOSS ANEMIA - s/p 4 units PRBCs patient has received four units of PRBCs during this admission her H/H remains stable on therapeutic coumadin and no need for further transfusion at this time HTN -controlled on Lopressor after increase to 37.5mg PO BID on 12/01 ATRIAL FIBRILLATION -?extermination inspector anticoagulation candidate -cont Metoprolol -of note, she was on Cardizem which was put on hold post-operatively in the ICU 2/2 hypotension, but was never restarted -defer to cards for the need for that now, seeing as her metoprolol dose was increased. DM2 -hold glipizide -can be resumed on discharge -insulin coverage -glycemic pharmacy consulted -of note sugars have notably risen in the past week-may be a result of the arginine supplement that was added for help with hypoproteinemia in this healing state. The supplement contains roughly 52g of carbs (per pharmacist) that require coverage in addition to food. Pharmacy to assist nurses with ensuring coverage for this. -also of note, the patient mentioned to me today that she has finally gotten her appetite back to normal again just this week, so this may be multifactorial PRESSURE ULCERS Pressure ulcer of right medial buttock, stage 2, POA and Pressure ulcer of medial sacrum, stage 2, not POA -- Wound care consulted DVT PROPHYLAXIS: coumadin-held Dispo: awaiting AKA on Thursday of this week Jamia Nichols DO [facility] Hospitalist Current Inpatient Medications: Current Inpatient Medications Medications (Trade) Dose Ordered Sig/Denisse Route Start Time Stop Time Status Last Admin Dose Admin Pantoprazole Sodium (Protonix Tab) 40 mg QAM PO 11/14/16 09:00 12/14/16 08:59 12/10/16 08:41 40 MG Acetaminophen (Tylenol Tab) 650 mg Q4H PRN PO 11/13/16 13:00 12/13/16 12:59 12/08/16 13:38 650 MG Docusate Sodium (coLACE CAP) 100 mg BID PO 11/13/16 21:00 12/13/16 20:59 12/10/16 08:42 100 MG Folic Acid (Folvite Tab) 1 mg DAILY PO 11/14/16 09:00 12/14/16 08:59 12/10/16 08:42 1 MG Tramadol HCl 50 mg 50 mg Q4H PRN PO 11/13/16 13:00 12/13/16 12:59 12/10/16 15:34 50 MG Daptomycin/Sodium Chloride (Cubicin IV/Nss 50ml) 62 ml @ 120 mls/hr Q24H IV 11/13/16 14:00 12/25/16 13:59 12/10/16 13:21 120 MLS/HR Glucose (Glucose 40% Gel) 15-30 GRAMS 15 GRAMS... UD PRN PO 11/13/16 14:30 12/13/16 14:29 Glucose (Glucose Chew Tab) 4-8 Tablets 4 Tabl... UD PRN PO 11/13/16 14:30 12/13/16 14:29 Dextrose (Dextrose 50% 50ML Syringe) 25-50ML OF 50% DW IV FOR... UD PRN IV 11/13/16 14:30 12/13/16 14:29 11/16/16 16:36 50 ML Glucagon (Glucagon Inj) 1 mg UD PRN SQ 11/13/16 14:30 12/13/16 14:29 Magnesium Hydroxide (Milk Of Magnesia Susp) 30 ml Q6H PRN PO 11/14/16 11:45 12/14/16 11:44 12/08/16 18:46 30 ML Bisacodyl (Dulcolax Supp) 10 mg DAILY PRN MN 11/14/16 11:45 12/14/16 11:44 Senna (Senokot Tab) 17.2 mg HS PO 11/14/16 21:00 12/14/16 20:59 12/08/16 20:22 17.2 MG Diphenhydramine HCl (Benadryl Inj) 25 mg Q8H PRN IV 11/14/16 11:45 12/14/16 11:44 Al Hydrox/Mg Hydrox/Simethicone (Maalox Max Susp) 15 ml Q4H PRN PO 11/14/16 11:45 12/14/16 11:44 Multivitamins (Multivitamin Tab) 1 tab QAM PO 11/15/16 09:00 12/15/16 08:59 12/10/16 08:41 1 TAB Ondansetron HCl (Zofran Inj) 4 mg Q6H PRN IV 11/14/16 11:45 12/14/16 11:44 12/10/16 08:40 4 MG Ferrous Gluconate (Ferrous Gluconate Tab) 324 mg TIDM PO 11/14/16 12:30 12/14/16 12:29 12/10/16 18:28 324 MG Heparin Sodium (Porcine) (Heparin 10 Unit/ ml 5 ml Flush) 5 ml PRN PRN FLUSH 11/15/16 01:30 12/15/16 01:29 12/06/16 05:56 5 ML Insulin Aspart (novoLOG ASPART) SLIDING SCALE ACHS SC 11/15/16 16:00 12/15/16 15:59 12/10/16 18:25 8 UNITS Miconazole Nitrate (Desenex Powder) 1 appln BID PRN EXT 11/16/16 17:00 12/16/16 16:59 11/21/16 10:09 1 APPLN Metoprolol Tartrate (Lopressor Tab) 37.5 mg BID PO 11/30/16 21:00 12/30/16 20:59 12/10/16 08:42 37.5 MG Insulin Glargine (Lantus Solostar Pen) 9 unit BID SC 12/01/16 09:00 12/31/16 08:59 12/10/16 08:51 9 UNIT Collagenase (Santyl Oint) 1 appln UD EXT 12/01/16 13:00 12/31/16 12:59 Enteral Nutritional Formula 1 box 1 box BIDM PO 12/05/16 17:45 01/04/17 17:44 12/10/16 08:41 1 BOX Sodium Chloride (Nss 1000ml) 1,000 ml @ 80 mls/hr [id number] IV 12/06/16 14:45 12/10/16 13:18 80 MLS/HR Warfarin Sodium 4 mg 4 mg DAILY@16 PO 12/07/16 16:00 01/06/17 15:59 12/10/16 16:43 4 MG Promethazine HCl/ Sodium Chloride (Phenergan Inj/ Nss 50ml) 50.5 ml @ 204 mls/hr Q6H PRN IV 12/07/16 15:00 01/06/17 14:59 Polyethylene (Miralax Powder Packet) 17 gm DAILY PO 12/09/16 09:00 01/08/17 08:59 12/10/16 08:41 17 GM Miscellaneous Information (Consult Glycemic Management Pharmacy) 1 ea UD PRN N/A 12/10/16 17:53 01/09/17 17:52 Insulin Aspart (novoLOG ASPART) SLIDING SCALE TODAY@0200 ONCE SC 12/11/16 02:00 12/11/16 02:01
[2016-12-10] MEDS: SENNA 8.6 MG TAB PO SCH (20:32)
[2016-12-10 23:45] VITALS: BP 158/74; PULSE 79; TEMP 37.2; O2SAT 94
[2016-12-11] VITALS (9 sets, daily range): BP systolic 158–176; BP diastolic 75–89; PULSE 70–86; TEMP 36.6–37.1; O2SAT 96–98
[2016-12-11] MEDS: SODIUM CHLORIDE 0.9% 1000ML 1,000 ML IV SCH ×2 (00:27→12:55)
[2016-12-11] MEDS ORDERED: INSULIN ASPART 100 UNITS/ML 3 ML PEN SC ONE (02:00)
[2016-12-11 05:28] LABS: BASO ABS # 0.09 K/uL (0-0.2); EOS % 10.9 %; HEMATOCRIT 26.7 % (37-47); IG% 0.5 %; LYMPH % 15.3 %; LYMPH ABS # 1.44 K/uL (1.2-3.4); MEAN CELL VOLUME 88.7 fL (80-100); MEAN CORPUSCULAR HEMOGLOBIN 27.9 pg (25-34); MEAN CORPUSCULAR HGB CONC 31.5 g/dl (32-36); MEAN PLATELET VOLUME 8.4 fL (7.4-10.4); MONO % 6.4 %; NEUT % 65.9 %; PLATELET COUNT 769 K/uL (130-400); RED BLOOD COUNT 3.01 M/uL (4.2-5.4); WHITE BLOOD COUNT 9.42 K/uL (4.8-10.8)
[2016-12-11 05:35] LABS: INR 1.6 (0.9-1.1); PROTHROMBIN TIME (PATIENT) 17.9 SECONDS (9.0-12.0)
[2016-12-11 05:49] LABS: COMPLETE YES
[2016-12-11 06:10] LABS: BUN/CREATININE RATIO 27.3 (10-20); CALCIUM 7.7 mg/dl (8.5-10.1); CREATININE 0.37 mg/dl (0.60-1.20); POTASSIUM 3.5 mmol/L (3.5-5.1)
[2016-12-11 06:12] LABS: ALB/GLOB RATIO 0.4 (0.9-2); C-REACTIVE PROTEIN 4.73 mg/dl (0-0.29)
[2016-12-11] MEDS: ARGININE EXTRA NUTRITION DRINK 1 BOX PO SCH ×2 (08:30→19:04)
[2016-12-11] MEDS: ONDANSETRON INJ 2 MG/ML 2 ML VIAL IV PRN (08:40)
[2016-12-11] MEDS: DOCUSATE SODIUM 100 MG CAP PO SCH ×2 (08:41→21:00)
[2016-12-11] MEDS: TRAMADOL HCL 50 MG TAB PO PRN ×2 (08:41→22:04)
[2016-12-11] MEDS: METOPROLOL TARTRATE 25 MG TAB PO SCH ×2 (08:41→21:54)
[2016-12-11] MEDS: POLYETHYLENE (MIRALAX) 17 GM PACK PO SCH (08:41)
[2016-12-11] MEDS: PANTOprazole SOD 40 MG TAB PO SCH (08:42)
[2016-12-11] MEDS: FERROUS GLUCONATE 324 MG TAB PO SCH ×3 (08:42→19:04)
[2016-12-11] MEDS: MULTIVITAMIN TAB PO SCH (08:42)
[2016-12-11] MEDS: INSULIN ASPART 100 UNITS/ML 3 ML PEN SC SCH ×4 (08:48→21:49)
[2016-12-11] MEDS ORDERED: INSULIN GLARGINE SOLOSTAR 100 UNITS/ML 3 ML PEN SC SCH (09:00)
--- NOTE | 2016-12-11 09:57 | CARDIOLOGY PROGRESS NOTE ---
DATE: 12/11/2016 DATE: 12/11/2016. SUBJECTIVE: The patient is seen and examined at the bedside. I initially evaluated the patient on 11/13/2016 for preoperative consultation prior to orthopedic knee surgery and antibiotic spacer placement. Since that time she has a complicated hospital course. Postoperatively, she was noted to have transient episodes of atrial fibrillation. Per review of the record, she was treated with amiodarone. There are no ECGs demonstrating recurrent atrial fibrillation. The patient had an IVC filter placed in October due to left lower extremity DVT. A venous duplex performed during hospitalization demonstrated progression of the deep venous thrombosis. Oral anticoagulation with Coumadin was recommended by vascular surgery and the patient has been therapeutic for approximately 1 week. She has not been on telemetry monitoring over the past few weeks since transfer from the Intensive Care Unit. The patient denies any chest pain or unusual shortness of breath. Her repeat ECG performed today demonstrates sinus rhythm. Due to slow healing of her left knee with persistent infection an above the knee amputation has been recommended. The patient denies any pain at this time. REVIEW OF SYSTEMS: The pertinent positives noted above, a 4-system review including cardiovascular, pulmonary, gastroenterologic, and neurologic systems otherwise negative. MEDICATIONS: Reviewed via EMR. Please see list for details. LABORATORY DATA: White blood cell count 9.42, hemoglobin is 8.4, platelet count is 769. INR today is 1.6. Sodium 135, potassium 3.5, chloride 103, CO2 28, BUN is 10, creatinine is 0.37. PHYSICAL EXAMINATION: VITAL SIGNS: Temperature is 37 degrees centigrade, pulse 86 beats per minute and regular, respiratory rate 16 breaths per minute, blood pressure 158/89. SAO2 96% on room air. GENERAL: NAD, chronically ill. HEAD, EYES, EARS, NOSE, AND THROAT: Her mucous membranes are moist. No scleral icterus. Conjunctivae pink. NECK: Supple. No JVD or HJR, no carotid bruit. HEART: Regular with a normal S1 and S2. There is no murmur, rub, or gallop. LUNGS: Clear bilateral. There are no rales, rhonchi, or wheeze. ABDOMEN: Soft and nontender. No rebound or guarding. Normal bowel sounds. EXTREMITIES: Warm and dry, right-sided BKA noted. Left knee dressing clean, dry and intact. NEUROLOGIC EXAMINATION: Demonstrates no focal motor deficit. FINAL IMPRESSION: 1. A 66-year-old female considered moderate perioperative cardiovascular risk for planned left-sided above knee amputation. 2. Postoperative paroxysmal atrial fibrillation -- currently sinus rhythm. 3. Left lower extremity deep venous thrombosis status post IVC filter placement. 4. Hypertension with borderline control. PLAN AND RECOMMENDATIONS: Metoprolol will be continued uninterrupted perioperatively. Oral diltiazem will remain on hold at this time. In regard to anticoagulation, patient previously required 4 units of packed red blood cell transfusion during hospitalization. Anticoagulation has been recommended by vascular surgery due to deep venous thrombosis. This can be continued cautiously with close followup with the patient's H\T\H as well as monitoring for any signs of GI/ blood loss. Recommend the patient be placed on a monitored/PCU bed postoperatively. No further cardiac testing or intervention would lower patient's overall perioperative cardiovascular risk at this time.
--- NOTE | 2016-12-11 11:29 | Pharmacy Progress Note ---
Glycemic Control: Progress Nt Date of Service December 11, 2016. Scope Glycemic Pharmacist consulted by Dr Nichols on 12/10/16 for glycemic control and to write orders per [facility] inpatient glycemic control protocol. Objective Accuchecks BSG (last 24hrs): Test 12/10/16 11:50 12/10/16 17:24 12/10/16 21:00 12/11/16 05:15 Bedside Glucose 228 mg/dl (70-90) 177 mg/dl (70-90) 216 mg/dl (70-90) Random Glucose 151 mg/dl (70-99) Test 12/11/16 08:39 Bedside Glucose 180 mg/dl (70-90) Laboratory Data (last 24hrs) Test 12/11/16 05:15 Anion Gap 6.0 mmol/L BUN/Creatinine Ratio 27.3 Blood Urea Nitrogen 10 mg/dl Creatinine 0.37 mg/dl Potassium Level 3.5 mmol/L Sodium Level 137 mmol/L White Blood Count 9.42 K/uL Red Blood Count 3.01 M/uL Hemoglobin 8.4 g/dL Hematocrit 26.7 % Mean Corpuscular Volume 88.7 fL Mean Corpuscular Hemoglobin 27.9 pg Mean Corpuscular Hemoglobin Concent 31.5 g/dl Platelet Count 769 K/uL Mean Platelet Volume 8.4 fL Neutrophils (%) (Auto) 65.9 % Lymphocytes (%) (Auto) 15.3 % Monocytes (%) (Auto) 6.4 % Eosinophils (%) (Auto) 10.9 % Basophils (%) (Auto) 1.0 % Neutrophils # (Auto) 6.21 K/uL Lymphocytes # (Auto) 1.44 K/uL Monocytes # (Auto) 0.60 K/uL Eosinophils # (Auto) 1.03 K/uL Basophils # (Auto) 0.09 K/uL Recent Pertinent Medications Outpatient Anti-diabetic Regimen: * Lantus 18 units BID * NovoLog per sliding scale AC/HS * Glipizide ER 10mg Q AM * A1c = 7.7 % 10/20/16 The patient is currently receiving: * Basal insulin: * Lantus 9 units every 12 hours * Bolus Insulin: * NovoLog SQ AC/HS - Goal Range: Low 110 mg/dL - High 140 mg/dL - Correction Factor: 20 mg/dL/unit - Carb ratio of 1 unit per 8 grams CHO consumed * Oral Agents: * None at this time Risk Factors for Insulin Resistance: * Steroids: n/a * Infection: infected L TKA; receiving Daptomycin * IVF: nss * Recent Surgery: POD I&D, removal of infected hardware and placement of abx spacer, possible OR tomorrow * Diet: T2DM + Arginine BID with meals --> NPO after midnight Assessment & Plan ASSESSMENT: Initial: * Pt is a 66 yo female readmitted s/p L TKR on 10/22/16. Due to infection, patient taken to OR 11/14/16. * Ms Johnson uses basal/bolus insulin along with PO meds for appropriate outpatient glycemic control as evidence by A1c of 7.7% * Ms Johnson has been stable on Lantus 9 units SQ BID, NovoLog 110-140mg/dL CF: 20mg/dL/unit, CR: 1:8 for many days * recently, BSGs have begun to climb upwards * see prior note for possible reasons for this trend * ADA & AACE recommend a goal blood sugar range 140-180 mg/dl for the majority of critically ill & non-critically ill patients. However, more stringent targets may be selected in individual cases. Will utilize more stringent goal of 110-140mg/dl based on patient age & comorbidities. Additionally, tighter glycemic control is warranted to facilitate wound/infection healing. 12/11/16 * Fasting BSG above goal for multiple days in a row * increase Lantus by 20% this AM * this increase is also in line with an estimated TDD of ~40-50u/day * NPO after midnight for OR tomorrow * utilize scale for Lantus dosing this evening * prandial BSGs elevated throughout the day * Tighten NovoLog parameters * reminder entered to cover CHO in Arginine drink PLAN FOR INPATIENT GLYCEMIC CONTROL: * Basal Insulin: * Lantus SQ BID - 11 units SQ x1 this AM starting this evening: - 5 units if BSG is below 120mg/dL - 9 units if BSG is 120-180mg/dL - 13 units if BSG is above 180mg/dL * Bolus insulin: * Continue NovoLog AC and HS --> q6H when NPO - Tighten correction factor 15 mg/dl/unit - Tighten carb ratio 1 unit per 7 grams CHO consumed - Continue goal range of Low 110 mg/dL - High 140 mg/dL as per above * A1c added to discharge instructions RECOMMENDATIONS FOR DISCHARGE: * Likely, Ms Johnson can continue home regimen at discharge * Please note that the plan above was derived based on current level of insulin resistance and hospital stress. These recommendations are appropriate for inpatient admission only. Plan of care upon discharge will need to be reassessed to avoid potential outpatient hypo/hyperglycemia. Thank you.
[2016-12-11] MEDS: DAPTOmycin IV 600 MG in SODIUM CHLORIDE 0.9% 50ML 50 ML IV SCH (13:19)
[2016-12-11] MEDS ORDERED: ACETAMINOPHEN 325 MG TAB PO ONE (14:00)
[2016-12-11] MEDS: SENNA 8.6 MG TAB PO SCH (21:00)
[2016-12-11] MEDS: INSULIN GLARGINE SOLOSTAR 100 UNITS/ML 3 ML PEN SC SCH (21:50)
[2016-12-11] MEDS ORDERED: NURSING DECISION MEDICATION ORDER SCH (23:30)
--- NOTE | 2016-12-11 23:31 | Progress Note ---
Medicine Progress Note Date & Time of Visit: December 11, 2016 at 18:22. Subjective Pt doing well Pain is well controlled from her L knee Eating dinner while I arrived Denies any current symptoms. Objective Last 8 Hrs Date Time Temp Pulse Resp B/P Pulse Ox O2 Delivery O2 Flow Rate FiO2 12/11/16 18:00 36.8 76 18 171/84 98 12/11/16 17:45 36.6 73 18 158/81 97 12/11/16 17:30 37.1 77 18 162/75 98 12/11/16 16:15 Room Air 12/11/16 15:45 36.7 70 16 164/85 97 Room Air 12/11/16 10:50 96 Room Air Physical Exam: GEN: WNWD, in no acute distress, alert and appropriate HEENT: NC/AT, normal sclerae CARDIO: reg rate, S1/2 heard without m/g/r LUNGS: CTA bilaterally, no crackles, rales or wheezes, good diaphragmatic excursion ABD: soft, non-tender, non-distended, no rebound or guarding EXTREMITY: L knee wrapped up with dressing intact, clean and dry. L foot with min sensation. R BKA incision healing well. Extremities are warm and appear well-perfused NEURO: CN 2-12 grossly intact, sensation reduced in LLE SKIN: warm and dry and L knee wound as above (with dressing in place, please defer to ortho exam.). Pressure ulcer-patient was eating dinner, so this not evaluated today. Please defer to daily skin assessment from nurses or wound care. Laboratory Results: Last 24 Hours Test 12/10/16 21:00 12/11/16 02:06 12/11/16 05:15 12/11/16 08:39 Bedside Glucose 216 mg/dl 210 mg/dl 180 mg/dl White Blood Count 9.42 K/uL Red Blood Count 3.01 M/uL Hemoglobin 8.4 g/dL Hematocrit 26.7 % Mean Corpuscular Volume 88.7 fL Mean Corpuscular Hemoglobin 27.9 pg Mean Corpuscular Hemoglobin Concent 31.5 g/dl Platelet Count 769 K/uL Mean Platelet Volume 8.4 fL Neutrophils (%) (Auto) 65.9 % Lymphocytes (%) (Auto) 15.3 % Monocytes (%) (Auto) 6.4 % Eosinophils (%) (Auto) 10.9 % Basophils (%) (Auto) 1.0 % Neutrophils # (Auto) 6.21 K/uL Lymphocytes # (Auto) 1.44 K/uL Monocytes # (Auto) 0.60 K/uL Eosinophils # (Auto) 1.03 K/uL Basophils # (Auto) 0.09 K/uL RDW Standard Deviation 50.3 fL RDW Coefficient of Variation 15.6 % Immature Granulocyte % (Auto) 0.5 % Immature Granulocyte # (Auto) 0.05 K/uL Red Blood Cell Morphology Unremarkable Erythrocyte Sedimentation Rate 55 mm/hr Prothrombin Time 17.9 SECONDS Prothromb Time International Ratio 1.6 Sodium Level 137 mmol/L Potassium Level 3.5 mmol/L Chloride Level 103 mmol/L Carbon Dioxide Level 28 mmol/L Anion Gap 6.0 mmol/L Blood Urea Nitrogen 10 mg/dl Creatinine 0.37 mg/dl Est Creatinine Clear Calc Drug Dose 165.0 ml/min Estimated GFR () 128.2 Estimated GFR (Non- 110.6 BUN/Creatinine Ratio 27.3 Random Glucose 151 mg/dl Calcium Level 7.7 mg/dl Total Bilirubin 0.4 mg/dl Aspartate Amino Transf (AST/SGOT) 7 U/L Alanine Aminotransferase (ALT/SGPT) 12 U/L Alkaline Phosphatase 85 U/L Total Creatine Kinase 49 U/L C-Reactive Protein 4.73 mg/dl Total Protein 5.9 gm/dl Albumin 1.7 gm/dl Globulin 4.2 gm/dl Albumin/Globulin Ratio 0.4 Test 12/11/16 11:49 Bedside Glucose 219 mg/dl Assessment & Plan Recent admission for septic arthritis for which she underwent and I&D and poly- exchange and was admitted for surgery on her left knee. She had a prolonged hospital course with sepsis 2/2 MRSA bacteremia, right foot necrosis requiring BKA and bilateral DVT with IVC filter placement in the presence of symptomatic anemia requiring blood transfusions. She was discharged to [facility] on IV Daptomycin via PICC line. She presented to Ortho office with worsening pain and drainage from the left knee. She was taken to the OR on 11/13 after L knee aspiration was concerninig for septic arthritis. While in the PACU she became hypotensive and tachycardic and she was given 3L of LR with phenylephrine with persistently low pressure, so was transferred to the ICU where her Cardizem and Metoprolol were put on hold. In the ICU she had episodes of rapid atrial fibrillation and responded well to an amiodarone bolus and drip which was then turned off. She was transferred to the floor on 11/17 and Cardizem was not restarted, but metoprolol was continued. In the first 3 days post-op, she required 4 total units of pRBCs, but her H/H has stayed stable since that time not requiring further transfusions since then. SEPSIS with SEPTIC ARTHRITIS LEFT KNEE W/PROSTHETIC JOINT MRSA BACTEREMIA -CT leg on 12/05 with findings as follows: comminuted, mildly displaced proximal left tibial fracture, moderate soft tissue gas adjacent to left knee which could be related to the open wound. However, a gas-forming infectious process could appear similar. Small left knee joint effusion. Small 2.2 x 0.9 cm rim enhancing fluid collection along the posterior aspect of the proximal left tibia. This is nonspecific in the postoperative setting but could reflect an abscess. Irregularity of the posterior cortex of the proximal left tibia. Given the clinical history, this is worrisome for osteomyelitis. -cont Dapto, would re-engage with ID team to ensure no Dapto resistance concerns and to make axel-operative recs for abx, CK for monitoring ordered for am -wound vac was withdrawn today after an attempt at more drainage of the wound this week -tentative plan for AKA on Thursday per Ortho -will re-engage with Cardiology regarding repeat preop evaluation based on events since admission -PICC line in place - historically in this admission d/c to facility noted to be difficult due to cost of the Daptomycin discharge planning - pillowcase turner aware LEFT LOWER EXT DVT: s/p IVC filter placement and now therapeutic on coumadin, hold coumadin now in preparation for AKA on Thursday, cont monitoring INR daily. Will likely need a dose of vitamin K 5mg IV preop as her liver synthetic function is very poor as evidenced by her very low albumin. Uncertain of time on Thursday for procedure, however, would time it so that she was given the vitamin K 8-10 hours prior to procedure. Should see the effect of this dose within 6-8 hours. Uncertain what need will be for coumadin post-op if poss removal of the clot with the leg? Still has PAF...? Will wait and see how things play out from the surgical perspective on this. Would re-engage with Cardiology regarding long-term anticoagulation in this patient. 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 DM2 -hold glipizide -can be resumed on discharge -insulin coverage -glycemic pharmacy consulted -of note sugars have notably risen in the past week-may be a result of the arginine supplement that was added for help with hypoproteinemia in this healing state. The supplement contains roughly 52g of carbs (per pharmacist) that require coverage in addition to food. Pharmacy to assist nurses with ensuring coverage for this. -also of note, the patient mentioned to me today that she has finally gotten her appetite back to normal again just this week, so this may be multifactorial PRESSURE ULCERS Pressure ulcer of right medial buttock, stage 2, POA and Pressure ulcer of medial sacrum, stage 2, not POA -- Wound care consulted DVT PROPHYLAXIS: coumadin-held Dispo: awaiting AKA on Thursday of this week Jamia Nichols DO [facility] Hospitalist Current Inpatient Medications: Current Inpatient Medications Medications (Trade) Dose Ordered Sig/Denisse Route Start Time Stop Time Status Last Admin Dose Admin Pantoprazole Sodium (Protonix Tab) 40 mg QAM PO 11/14/16 09:00 12/14/16 08:59 12/11/16 08:42 40 MG Acetaminophen (Tylenol Tab) 650 mg Q4H PRN PO 11/13/16 13:00 12/13/16 12:59 12/08/16 13:38 650 MG Docusate Sodium (coLACE CAP) 100 mg BID PO 11/13/16 21:00 12/13/16 20:59 12/11/16 08:41 100 MG Folic Acid (Folvite Tab) 1 mg DAILY PO 11/14/16 09:00 12/14/16 08:59 12/11/16 08:42 1 MG Tramadol HCl 50 mg 50 mg Q4H PRN PO 11/13/16 13:00 12/13/16 12:59 12/11/16 08:41 50 MG Daptomycin/Sodium Chloride (Cubicin IV/Nss 50ml) 62 ml @ 120 mls/hr Q24H IV 11/13/16 14:00 12/25/16 13:59 12/11/16 13:19 120 MLS/HR Glucose (Glucose 40% Gel) 15-30 GRAMS 15 GRAMS... UD PRN PO 11/13/16 14:30 12/13/16 14:29 Glucose (Glucose Chew Tab) 4-8 Tablets 4 Tabl... UD PRN PO 11/13/16 14:30 12/13/16 14:29 Dextrose (Dextrose 50% 50ML Syringe) 25-50ML OF 50% DW IV FOR... UD PRN IV 11/13/16 14:30 12/13/16 14:29 11/16/16 16:36 50 ML Glucagon (Glucagon Inj) 1 mg UD PRN SQ 11/13/16 14:30 12/13/16 14:29 Magnesium Hydroxide (Milk Of Magnesia Susp) 30 ml Q6H PRN PO 11/14/16 11:45 12/14/16 11:44 12/08/16 18:46 30 ML Bisacodyl (Dulcolax Supp) 10 mg DAILY PRN AL 11/14/16 11:45 12/14/16 11:44 Senna (Senokot Tab) 17.2 mg HS PO 11/14/16 21:00 12/14/16 20:59 12/10/16 20:32 17.2 MG Diphenhydramine HCl (Benadryl Inj) 25 mg Q8H PRN IV 11/14/16 11:45 12/14/16 11:44 Al Hydrox/Mg Hydrox/Simethicone (Maalox Max Susp) 15 ml Q4H PRN PO 11/14/16 11:45 12/14/16 11:44 Multivitamins (Multivitamin Tab) 1 tab QAM PO 11/15/16 09:00 12/15/16 08:59 12/11/16 08:42 1 TAB Ondansetron HCl (Zofran Inj) 4 mg Q6H PRN IV 11/14/16 11:45 12/14/16 11:44 12/11/16 08:40 4 MG Ferrous Gluconate (Ferrous Gluconate Tab) 324 mg TIDM PO 11/14/16 12:30 12/14/16 12:29 12/11/16 12:54 324 MG Heparin Sodium (Porcine) (Heparin 10 Unit/ ml 5 ml Flush) 5 ml PRN PRN FLUSH 11/15/16 01:30 12/15/16 01:29 12/06/16 05:56 5 ML Insulin Aspart (novoLOG ASPART) SLIDING SCALE ACHS SC 11/15/16 16:00 12/15/16 15:59 12/11/16 13:18 11 UNITS Miconazole Nitrate (Desenex Powder) 1 appln BID PRN EXT 11/16/16 17:00 12/16/16 16:59 11/21/16 10:09 1 APPLN Metoprolol Tartrate (Lopressor Tab) 37.5 mg BID PO 11/30/16 21:00 12/30/16 20:59 12/11/16 08:41 37.5 MG Collagenase (Santyl Oint) 1 appln UD EXT 12/01/16 13:00 12/31/16 12:59 Enteral Nutritional Formula 1 box 1 box BIDM PO 12/05/16 17:45 01/04/17 17:44 12/10/16 08:41 1 BOX Sodium Chloride (Nss 1000ml) 1,000 ml @ 80 mls/hr [id number] IV 12/06/16 14:45 12/11/16 12:55 80 MLS/HR Warfarin Sodium 4 mg 4 mg DAILY@16 PO 12/07/16 16:00 01/06/17 15:59 Future Hold 12/10/16 16:43 4 MG Promethazine HCl/ Sodium Chloride (Phenergan Inj/ Nss 50ml) 50.5 ml @ 204 mls/hr Q6H PRN IV 12/07/16 15:00 01/06/17 14:59 Polyethylene (Miralax Powder Packet) 17 gm DAILY PO 12/09/16 09:00 01/08/17 08:59 12/11/16 08:41 17 GM Miscellaneous Information (Consult Glycemic Management Pharmacy) 1 ea UD PRN N/A 12/10/16 17:53 6/2/17 17:52 Insulin Glargine (Lantus Solostar Pen) SEE PROTOCOL BID SC 12/11/16 21:00 01/10/17 20:59
[2016-12-12] VITALS (7 sets, daily range): BP systolic 96–160; BP diastolic 63–88; PULSE 75–98; TEMP 36.2–36.7; O2SAT 96–100
[2016-12-12] MEDS: SODIUM CHLORIDE 0.9% 1000ML 1,000 ML IV SCH ×2 (02:14→20:00)
[2016-12-12 05:42] LABS: HEMATOCRIT 29.8 % (37-47); MEAN CELL VOLUME 87.1 fL (80-100); MEAN CORPUSCULAR HEMOGLOBIN 28.4 pg (25-34); MEAN CORPUSCULAR HGB CONC 32.6 g/dl (32-36); MEAN PLATELET VOLUME 8.4 fL (7.4-10.4); PLATELET COUNT 741 K/uL (130-400); RED BLOOD COUNT 3.42 M/uL (4.2-5.4); WHITE BLOOD COUNT 10.93 K/uL (4.8-10.8)
[2016-12-12 05:49] LABS: INR 1.4 (0.9-1.1); PROTHROMBIN TIME (PATIENT) 15.4 SECONDS (9.0-12.0)
[2016-12-12] MEDS: INSULIN ASPART 100 UNITS/ML 3 ML PEN SC SCH ×3 (06:12→18:26)
[2016-12-12 06:13] LABS: CALCIUM 7.9 mg/dl (8.5-10.1); CREATININE 0.37 mg/dl (0.60-1.20); POTASSIUM 3.4 mmol/L (3.5-5.1)
[2016-12-12] MEDS: ARGININE EXTRA NUTRITION DRINK 1 BOX PO SCH (07:13)
[2016-12-12] MEDS: FERROUS GLUCONATE 324 MG TAB PO SCH ×2 (07:14→18:04)
[2016-12-12] MEDS: POLYETHYLENE (MIRALAX) 17 GM PACK PO SCH (07:14)
[2016-12-12] MEDS: DOCUSATE SODIUM 100 MG CAP PO SCH ×2 (08:00→20:00)
[2016-12-12] MEDS: MULTIVITAMIN TAB PO SCH (08:00)
[2016-12-12] MEDS: INSULIN GLARGINE SOLOSTAR 100 UNITS/ML 3 ML PEN SC SCH ×2 (08:29→21:26)
[2016-12-12] MEDS: METOPROLOL TARTRATE 25 MG TAB PO SCH ×2 (08:29→19:57)
[2016-12-12] MEDS: PANTOprazole SOD 40 MG TAB PO SCH (08:30)
[2016-12-12] MEDS ORDERED: POTASSIUM CHLORIDE 20 MEQ TABCR PO ONE (08:45)
[2016-12-12] MEDS ORDERED: BUPIVACAINE 0.5 % 5 MG/1 ML MPF 30ML VIAL ONE (09:42)
[2016-12-12] MEDS ORDERED: DEXAMETHASONE SOD INJ 4 MG/ML VIAL ONE (09:58)
[2016-12-12] MEDS ORDERED: BUPIVACAINE/EPINEPHRINE 0.5% MPF 1:200,000 30 ML VIAL ONE ×2 (09:58→10:14)
--- NOTE | 2016-12-12 10:00 | Cardiology Follow-Up ---
Subjective General Date of Service: December 12, 2016. Pt evaluation today including: conversation w/ patient, physical exam, chart review, lab review, review of studies, review of inpatient medication list History of Present Illness The patient is a 66 year old female seen in follow up. Admits to feeling nervous in anticipation of surgery. Denies CP, palpitations, or SOB. Received AM dose of metoprolol. Offers no other complaints. Allergies Coded Allergies: RASHAAD Inhibitors (Verified Allergy, Unknown, ?, 11/17/16) unknown reaction Atorvastatin (Verified Allergy, Unknown, ?, 11/17/16) unknown reaction Ertapenem (Verified Allergy, Unknown, ?, 11/17/16) unknown reaction Piperacillin (Verified Allergy, Unknown, rash, 10/19/16) Saxagliptin (Verified Allergy, Unknown, ?, 11/17/16) unknown reaction Simvastatin (Verified Allergy, Unknown, ?, 11/17/16) unknown reaction Tazobactam (Verified Allergy, Unknown, rash, 10/19/16) Vancomycin (Verified Allergy, Unknown, rash, 10/19/16) Social History Smoking Status: Never Smoker Hx Alcohol Use - Type And Amou: No Hx Substance Use - Type And Am: No Review of Systems Respiratory: No cough, No dyspnea at rest, No hemoptysis, No shortness of breath, No sputum, No wheezing Cardiac: No PND, No chest pain, No edema, No orthopnea, No palpitations Physical Exam Vital Signs Last Vital Signs Documentation Date Time Temp Pulse Resp B/P Pulse Ox O2 Delivery O2 Flow Rate FiO2 12/12/16 07:54 36.7 75 18 160/88 98 Room Air Physical Exam Constitutional: Level of Distress: chronically ill Head: normocephalic Neck: supple, trachea midline Lungs: Auscultation: breath sounds normal, no wheezing, no rales/crackles, no rhonchi Cardiovascular: Heart Auscultation: RRR, normal S1, normal S2, no murmurs Abdomen: Bowel Sounds: normal Inspection & Palpation: soft, non-distended, no tenderness, guarding & rebound Extremities: no cyanosis, ulcers, pertinent finding (Right sided BKA) Neurologic: Gait & Station: pertinent finding (No focal motor deficit) Cranial Nerves: grossly intact Assessment and Plan Assessment and Plan FINAL IMPRESSION: 1. Moderate perioperative cardiovascular risk for planned left-sided above knee amputation. 2. Postoperative paroxysmal atrial fibrillation -- currently sinus rhythm. 3. Left lower extremity deep venous thrombosis status post IVC filter placement. 4. Hypertension with borderline control. PLAN AND RECOMMENDATIONS: Continue beta jodie uninterrupted perioperatively. Recommend telemetry / PCU post-operatively. Laboratory Results Last 24 Hours Test 12/11/16 11:49 12/11/16 17:15 12/11/16 20:47 12/12/16 00:04 Bedside Glucose 219 mg/dl 119 mg/dl 161 mg/dl 118 mg/dl Test 12/12/16 05:30 12/12/16 06:02 White Blood Count 10.93 K/uL Red Blood Count 3.42 M/uL Hemoglobin 9.7 g/dL Hematocrit 29.8 % Mean Corpuscular Volume 87.1 fL Mean Corpuscular Hemoglobin 28.4 pg Mean Corpuscular Hemoglobin Concent 32.6 g/dl RDW Standard Deviation 51.1 fL RDW Coefficient of Variation 15.9 % Platelet Count 741 K/uL Mean Platelet Volume 8.4 fL Prothrombin Time 15.4 SECONDS Prothromb Time International Ratio 1.4 Sodium Level 137 mmol/L Potassium Level 3.4 mmol/L Chloride Level 103 mmol/L Carbon Dioxide Level 28 mmol/L Anion Gap 6.0 mmol/L Blood Urea Nitrogen 9 mg/dl Creatinine 0.37 mg/dl Est Creatinine Clear Calc Drug Dose 165.0 ml/min Estimated GFR () 128.2 Estimated GFR (Non- 110.6 BUN/Creatinine Ratio 25.0 Random Glucose 152 mg/dl Calcium Level 7.9 mg/dl Bedside Glucose 147 mg/dl
[2016-12-12] MEDS ORDERED: MIDAZOLAM HCL 1 MG/ML 2ML VIAL ONE (10:04)
[2016-12-12] MEDS ORDERED: FENTANYL CITRATE INJ 50 MCG/1 ML 2 ML VIAL ONE ×3 (10:04→13:04)
[2016-12-12] MEDS ORDERED: NURSING VERBAL MED ORDER STA (10:24)
[2016-12-12] MEDS ORDERED: CEFAZOLIN IV 2,000 MG/60 ML D5W IV ONE (10:26)
--- NOTE | 2016-12-12 10:59 | Pharmacy Progress Note ---
Glycemic Control: Progress Nt Date of Service December 12, 2016. Scope Glycemic Pharmacist re-consulted by Dr Nichols on 12/10/16 for glycemic control and to write orders per [facility] inpatient glycemic control protocol. Objective Accuchecks BSG (last 24hrs): Test 12/11/16 11:49 12/11/16 17:15 12/11/16 20:47 12/12/16 00:04 Bedside Glucose 219 mg/dl (70-90) 119 mg/dl (70-90) 161 mg/dl (70-90) 118 mg/dl (70-90) Test 12/12/16 05:30 12/12/16 06:02 Random Glucose 152 mg/dl (70-99) Bedside Glucose 147 mg/dl (70-90) Laboratory Data (last 24hrs) HbA1c: 7.7% on 10/20/16 Recent Pertinent Medications Outpatient Anti-diabetic Regimen: * Lantus 18 units SQ BID * Glipizide ER 10mg PO Daily * NovoLog SSI QID The patient is currently receiving: * Basal insulin: Lantus 9 units every 12 hours * Correctional Insulin: Novolog Correction per scale ACHS Goal Range: Low 110 mg/dL - High 140 mg/dL Correction Factor: 15 mg/dL/unit * Prandial insulin: Per carb ratio of 1 unit per 7 grams CHO consumed * Oral Agents: On hold for admission Risk Factors for Insulin Resistance: * Infection * Diet - especially Arginine Supplement Assessment & Plan ASSESSMENT: * Patient is currently receiving an average of ~55 units of insulin per day * 18 units of basal insulin * 37 units of prandial/correctional insulin * BSGs ranging 118-219mg/dl over the past 24hrs * Anticipating insulin regimen may need adjusted for the next 24hrs d/t : * AM Fasting BSG = 147mg/dl no changes needed to basal insulin * Post-prandial BSGs are in range when arginine CHO are covered, no changes needed to CF/CR * Pt is NPO today for AKA. Insulin regimen may need decreased for decreased PO intake. However, BSGs may spike post-op d/t stress from surgery. Pt has been very stable on Lantus 9 units SQ BID (this seems to be her true basal needs) even in times of decreased PO intake. Safe to dose basal insulin based off of BSG (i.e. range based dosing) when rapid dose adjustments are made in house. Will continue this range based dosing as insulin needs are uncertain post- operative. Will re-assess bolus insulin parameters post-operatively. * ADA & AACE recommend a goal blood sugar range 140-180 mg/dl for the majority of critically ill & non-critically ill patients. However, more stringent targets may be selected in individual cases. Will utilize more stringent goal of 110-140mg/dl based on patient age & comorbidities. Additionally, tighter glycemic control is warranted to facilitate wound/infection healing. PLAN FOR INPATIENT GLYCEMIC CONTROL: * Continue to hold outpatient oral diabetes medications * Continue Basal insulin with Lantus SQ BID - dosing based on BSG * If BSG below 120mg/dl --> Lantus 5 units * If BSG 120-180mg/dl --> Lantus 9 units * If BSG 181mg.dl or above --> Lantus 13 units * Continue NovoLog per scale ACHS or Q6hrs while NPO * Goal Range: Low 110 mg/dL - High 140 mg/dL * Correction Factor: 15 mg/dL/unit * Nutritional / Prandial insulin per carb ratio of 1 unit per 7 grams CHO consumed * Please note that the plan above was derived based on current level of insulin resistance and hospital stress. These recommendations are appropriate for inpatient admission only. Plan of care upon discharge will need to be reassessed to avoid potential outpatient hypo/hyperglycemia. Thank you.
[2016-12-12] MEDS ORDERED: ONDANSETRON INJ 2 MG/ML 2 ML VIAL IV PRN (11:00)
[2016-12-12] MEDS ORDERED: EpHEDrine SULFATE INJ 50 MG/ML AMP IV PRN (11:00)
[2016-12-12] MEDS ORDERED: PROMETHAZINE HCL INJ 6.25 MG in SODIUM CHLORIDE 0.9% 50ML 50 ML IV PRN (11:00)
[2016-12-12] MEDS ORDERED: ATROPINE SULFATE 0.1 MG/ML 5ML SYR IV PRN (11:00)
[2016-12-12] MEDS ORDERED: THROMBIN 5000 UNITS KIT ONE (11:46)
[2016-12-12] MEDS ORDERED: LIDOCAINE HCL 2% 2 ML VIAL (20MG/ML) ONE (11:47)
[2016-12-12] MEDS ORDERED: PHENYLEPHRINE 100MCG/ML 5ML SYR ONE ×2 (11:47→12:56)
[2016-12-12] MEDS ORDERED: EpHEDrine SULFATE 50MG/5ML SYR ONE ×3 (11:47→15:05)
[2016-12-12] MEDS ORDERED: PROPOFOL IV EMULSION 10 MG/ML 20 ML VIAL IV ONE (11:47)
[2016-12-12 12:05] LABS: HEMATOCRIT 29.2 % (37-47)
[2016-12-12 13:43] LABS: INR 1.5 (0.9-1.1); PROTHROMBIN TIME (PATIENT) 16.3 SECONDS (9.0-12.0)
[2016-12-12] MEDS ORDERED: BACITRACIN 50,000 UNITS IR ONE (14:06)
[2016-12-12] MEDS ORDERED: ONDANSETRON INJ 2 MG/ML 2 ML VIAL ONE (14:09)
[2016-12-12] MEDS: THROMBIN FOR SOLN 20000 UNIT KIT ONE ×2 (14:09→14:29)
--- NOTE | 2016-12-12 14:47 | [facility] Post Operative Brief Note ---
Immediate Operative Summary Operative Date December 12, 2016. Pre-Operative Diagnosis Infection of total left knee replacement, methicillin resistant Staphylococcus aureus septicemia, Wound dehiscence, Vasculopathy Post-Operative Diagnosis Infection of total left knee replacement, methicillin resistant Staphylococcus aureus septicemia, Wound dehiscence, Vasculopathy Procedure(s) Performed Left Above Knee Amputation, Removal of hardware left lower extremity Surgeon Dr. Prasanna Car Marriage Performer Surgeon(s) Christ Newton PA-C, Donal Botello MD Estimated Blood Loss 400ml Findings See Dict Specimens SPECIMEN: A: left lower leg, knee and explanted hardware Drains HV x 2 Anesthesia GLMA w/ Femoral nerve block Complication(s) None Disposition Recovery Room / PACU
[2016-12-12] MEDS: FENTANYL CITRATE INJ 50 MCG/1 ML 2 ML VIAL IV PRN ×4 (14:55→15:25)
[2016-12-12] MEDS ORDERED: PHENYLEPHRINE HCL INJ 10 MG/ML VIAL ONE (15:05)
--- NOTE | 2016-12-12 15:38 | Anesthesiology Progress Note ---
Anesthesia Post Op Note Date & Time December 12, 2016 at 15:39 Vital Signs Pain Intensity: 4 Vital Signs Past 12 Hours Date Time Temp Pulse Resp B/P Pulse Ox O2 Delivery O2 Flow Rate FiO2 12/12/16 15:20 89 20 127/79 97 Nasal Cannula 3 105/55 12/12/16 15:10 89 20 100 Diffusion Mask 8 140/67 12/12/16 15:00 87 20 100 Diffusion Mask 8 89 129/63 12/12/16 14:51 36.3 89 25 157/72 100 Diffusion Mask 8 12/12/16 07:54 36.7 75 18 160/88 98 Room Air 12/12/16 07:35 Room Air Notes Mental Status: alert / awake / arousable, participated in evaluation Pt Amnestic to Procedure: Yes Nausea / Vomiting: adequately controlled Pain: adequately controlled Airway Patency, RR, SpO2: stable & adequate BP & HR: stable & adequate Hydration State: stable & adequate Anesthetic Complications: no major complications apparent
--- NOTE | 2016-12-12 17:41 | OPERATIVE REPORT ---
DATE OF OPERATION: 12/12/2016 PREOPERATIVE DIAGNOSES: 1. 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 2. Methicillin-resistant Staphylococcus aureus septicemia involving the left lower extremity. 3. Wound dehiscence, left anterior knee. 4. Severe vasculopathy. POSTOPERATIVE DIAGNOSES: Same. PROCEDURES: 1. Left [id number] amputation. 2. Removal of hardware, left lower extremity. SURGEON: Dr. Car. ENTRY TABLE OPERATOR: Christ Newton PA-C ASSIST: Donal Botello MD ANESTHESIA: General LMA with femoral nerve block. SPECIMENS: Left lower extremity and explanted hardware, left knee. DRAINS: Hemovac x2. COMPLICATIONS: None. BLOOD LOSS: 400 mL. PERTINENT HISTORY: This is a 66-year-old woman who had an initial left total knee arthroplasty performed approximately 17 years prior with successful outcome. Approximately 6 weeks ago, the patient began having severe difficulty related to her infected right foot. The belief is that the right foot infection colonized the left knee. The patient began having knee symptoms and then had an irrigation and debridement, synovectomy and poly exchange of the knee. She had secondary irrigation and debridement with poly exchange and then eventual explantation of the hardware and then placement of antibiotic laden cement spacer. The patient then developed wound necrosis and due to her severe vasculopathy and diabetes, the patient would not mount an adequate healing response and due to the amount of tissue necrosis and vascular insult due to her ongoing vascular disease, the patient's left lower extremity was deemed to be nonsalvageable by several consultants and the patient was then scheduled for [id number]-[id number] amputation with removal of hardware as indicated. All potential risks, benefits, complications, alternatives, rehab, potential for incomplete relief of symptoms, need for further surgery, DVT, PE, , persistent pain, swelling, scarring, weakness, neurovascular injury, wound complications, and bone fracture were discussed with the patient. The patient decided to proceed with the procedure as indicated. DESCRIPTION OF PROCEDURE: The patient was administered a femoral nerve block, taken to the operative suite and placed supine on the operating room table. After reviewing the consent and identification of proper operative site, the patient was anesthetized, LMA was placed. Tourniquet was placed high on the left thigh over cast padding. Left lower extremity was then sterilely prepped and draped in usual fashion and elevated. The tourniquet was inflated initially to 350 mmHg. Next, the skin marker was used to alberto a fish mouth incision on the left lower extremity. A 10 blade scalpel was then used to make an incision along the incision lines anteriorly. First noted was significant bleeding due to calcifications of the patient's vessels despite the use of a tourniquet and management of the patient's blood pressure by anesthesia. Significant amount of blood loss occurred from those superficial veins and vessels due to their friability. Multiple techniques were used including packing, direct pressure, proximal control, thrombin and packing. The vessels eventually were controlled and the Jj's fascia was then incised with the electrocautery. Full thickness skin flaps were developed to avoid beveling of the tissue. Next, the anterior compartment was entered with transection of the quadriceps and exposure of the proximal knee joint capsule. The reflection of the synovial lining was carefully dissected with Dueñas scissors and then retracted distally to be taken with the specimen. Next, the vastus lateralis and iliotibial band were then incised in line with the skin incisions. Significant vessel bleeding was encountered adjacent to the peroneal vessels. Electrocautery and ligatures were used to control bleeding. Thrombin was injected adjacent to the soft tissues with packing. Consultation was made with Dr. Donal Botello for hr administrative assistant during the case due to the significant amount of vessel calcification and his expertise in vascular surgery. Dr. Botello did assist with dissection and hemostasis of Catracho's canal with the more significant neurovascular bundle in the medial aspect of the thigh. After this was completely dissected free and then hemostasis was achieved with stick ties and proximal ligatures, the Hohmann retractors were placed beneath the femur, which was directly exposed proximal to the metaphyseal flare. Next, the sagittal saw was then used to make a transverse cut through the femur using sterile normal saline to cool the blade during the cut. Next, the posterior flap was then developed with 10 blade scalpel incision and continuing with the fish mouth incision. Electrocautery was used to cauterize bleeding vessels. The tourniquet was then released and small bleeders were then controlled with electrocautery and 2-0 silk ties as necessary. Next, the posterior compartment was then transected with electrocautery and the leg specimen and explanted hardware was then passed off as specimen. Next, the wound was copiously irrigated with sterile normal saline until clear. Small bleeding vessels were then coagulated with electrocautery. The sciatic nerve at the level of the trifurcation was identified and traced proximally. This was placed on gentle stretch and then a stick tie 3-0 Vicryl was then placed into the sciatic nerve to control any bleeding from nourishing vessels of the nerve then followed by placement of a 2-0 silk ligature proximally. The sciatic nerve was then transected proximal level of the bone cut and allowed to retract within the stump. Next, the posterior compartment tissue was then carefully bevelled with a 10 blade scalpel, taking care to preserve the adductor aidan for minor tenodesis as well as the adductor longus. Next, the wound was once again irrigated with sterile normal saline and 4 drill holes made with a 2.5 mm drill bit through the distal aspect of the femur and then a minor tenodesis was then performed using #1 Vicryl suture, first of the abductor longus and then the adductor aidan using a Krackow locking loop whipstitch. After this was completed, the posterior compartment fascia was then closed to the anterior compartment fascia after two 10-Yi single lumen Hemovac drains were placed exiting anterolaterally. This was then followed by closure of the dermis with buried interrupted 2-0 Vicryl. This was then followed by closure of the skin with interrupted 4-0 nylon sutures and then a sterile compressive dressing was applied overwrapped with an Jeremiah wrap. The tourniquet had been released for approximately an hour by the time of wound closure with no oozing noted. The patient was awakened and taken to recovery in stable condition. I attest to the content of the Intraoperative Record and any orders documented therein. Any exceptio ns are noted below.
[2016-12-12] MEDS: ONDANSETRON INJ 2 MG/ML 2 ML VIAL IV PRN (18:02)
[2016-12-12] MEDS: TRAMADOL HCL 50 MG TAB PO PRN (18:03)
[2016-12-12] MEDS: DAPTOmycin IV 600 MG in SODIUM CHLORIDE 0.9% 50ML 50 ML IV SCH (18:18)
[2016-12-12] MEDS ORDERED: NURSING VERBAL MED ORDER ONE ×2 (19:15)
[2016-12-12] MEDS ORDERED: HYDROmorphone INJ 1 MG/ML SYR IV PRN (19:30)
[2016-12-12] MEDS: SENNA 8.6 MG TAB PO SCH (20:00)
[2016-12-12] MEDS: PROMETHAZINE HCL INJ 12.5 MG in SODIUM CHLORIDE 0.9% 50ML 50 ML IV PRN (20:48)
--- NOTE | 2016-12-12 23:02 | Progress Note ---
Medicine Progress Note Date & Time of Visit: December 12, 2016 at 17:03. Subjective s/p L AKA today she is doing well she denies nausea but states that she is not hungry she is in pain and states that the nurses are working on getting her pain meds to her we discussed the importance of not letting the pain get away from her before saying something she otherwise denies any other symptoms such as chest pain or trouble breathing friends from her anglican are in the room with her tonight Objective Last 8 Hrs Date Time Temp Pulse Resp B/P Pulse Ox O2 Delivery O2 Flow Rate FiO2 12/12/16 16:10 92 20 111/73 99 Nasal Cannula 3 12/12/16 15:55 89 20 123/82 97 Nasal Cannula 3 12/12/16 15:50 89 20 118/77 97 Nasal Cannula 3 Arterial Line 12/12/16 15:40 36.1 89 20 117/74 97 Nasal Cannula 3 116/72 12/12/16 15:30 89 20 117/74 97 Nasal Cannula 3 118/60 12/12/16 15:20 89 20 127/79 97 Nasal Cannula 3 105/55 12/12/16 15:10 89 20 100 Diffusion Mask 8 140/67 12/12/16 15:00 87 20 100 Diffusion Mask 8 89 129/63 12/12/16 14:51 36.3 89 25 157/72 100 Diffusion Mask 8 Physical Exam: GEN: WNWD, in no acute distress, alert and appropriate HEENT: NC/AT, normal sclerae, poor dentition CARDIO: reg rate, S1/2 heard without m/g/r LUNGS: CTA bilaterally, no crackles, rales or wheezes, good diaphragmatic excursion ABD: soft, non-tender, non-distended, no rebound or guarding EXTREMITY: L stump wrapped and drain in place; R BKA incision healing well. Arms are warm and well perfused. NEURO: CN 2-12 grossly intact SKIN: warm and dry and surgical wounds as above (not examined by me today) Laboratory Results: 12/12/16 05:30 12/12/16 11:53 12/12/16 05:30 Test 12/12/16 05:30 12/12/16 13:14 12/12/16 20:59 Red Blood Count 3.42 M/uL (4.2-5.4) Mean Corpuscular Volume 87.1 fL (80-100) Mean Corpuscular Hemoglobin 28.4 pg (25-34) Mean Corpuscular Hemoglobin Concent 32.6 g/dl (32-36) RDW Standard Deviation 51.1 fL (36.4-46.3) RDW Coefficient of Variation 15.9 % (11.5-14.5) Mean Platelet Volume 8.4 fL (7.4-10.4) Anion Gap 6.0 mmol/L (3-11) Est Creatinine Clear Calc Drug Dose 165.0 ml/min Estimated GFR () 128.2 Estimated GFR (Non- 110.6 BUN/Creatinine Ratio 25.0 (10-20) Calcium Level 7.9 mg/dl (8.5-10.1) Prothrombin Time 16.3 SECONDS (9.0-12.0) Prothromb Time International Ratio 1.5 (0.9-1.1) Bedside Glucose 269 mg/dl (70-90) Last 24 Hours Test 12/11/16 17:15 12/11/16 20:47 12/12/16 00:04 12/12/16 05:30 Bedside Glucose 119 mg/dl 161 mg/dl 118 mg/dl White Blood Count 10.93 K/uL Red Blood Count 3.42 M/uL Hemoglobin 9.7 g/dL Hematocrit 29.8 % Mean Corpuscular Volume 87.1 fL Mean Corpuscular Hemoglobin 28.4 pg Mean Corpuscular Hemoglobin Concent 32.6 g/dl RDW Standard Deviation 51.1 fL RDW Coefficient of Variation 15.9 % Platelet Count 741 K/uL Mean Platelet Volume 8.4 fL Prothrombin Time 15.4 SECONDS Prothromb Time International Ratio 1.4 Sodium Level 137 mmol/L Potassium Level 3.4 mmol/L Chloride Level 103 mmol/L Carbon Dioxide Level 28 mmol/L Anion Gap 6.0 mmol/L Blood Urea Nitrogen 9 mg/dl Creatinine 0.37 mg/dl Est Creatinine Clear Calc Drug Dose 165.0 ml/min Estimated GFR () 128.2 Estimated GFR (Non- 110.6 BUN/Creatinine Ratio 25.0 Random Glucose 152 mg/dl Calcium Level 7.9 mg/dl Test 12/12/16 06:02 12/12/16 11:53 12/12/16 13:14 12/12/16 14:58 Bedside Glucose 147 mg/dl 250 mg/dl Hemoglobin 9.5 g/dL Hematocrit 29.2 % Prothrombin Time 16.3 SECONDS Prothromb Time International Ratio 1.5 Assessment & Plan Recent admission for septic arthritis for which she underwent and I&D and poly- exchange and was admitted for surgery on her left knee. She had a prolonged hospital course with sepsis 2/2 MRSA bacteremia, right foot necrosis requiring BKA and bilateral DVT with IVC filter placement in the presence of symptomatic anemia requiring blood transfusions. She was discharged to [facility] on IV Daptomycin via PICC line. She presented to Ortho office with worsening pain and drainage from the left knee. She was taken to the OR on 11/13 after L knee aspiration was concerninig for septic arthritis. While in the PACU she became hypotensive and tachycardic and she was given 3L of LR with phenylephrine with persistently low pressure, so was transferred to the ICU where her Cardizem and Metoprolol were put on hold. In the ICU she had episodes of rapid atrial fibrillation and responded well to an amiodarone bolus and drip which was then turned off. She was transferred to the floor on 11/17 and Cardizem was not restarted, but metoprolol was continued. In the first 3 days post-op, she required 4 total units of pRBCs, but her H/H has stayed stable since that time not requiring further transfusions since then. A wound vac was tried on the knee and poor wound healing was apparent over time. She was started on coumadin and was tolerating therapeutic levels. It was decided she would undergo an AKA of the left leg. She is currently post-op. SEPSIS with SEPTIC ARTHRITIS LEFT KNEE W/PROSTHETIC JOINT MRSA BACTEREMIA 12/12: post-op from AKA today on L side-doing well. -CT leg on 12/05 with findings as follows: comminuted, mildly displaced proximal left tibial fracture, moderate soft tissue gas adjacent to left knee which could be related to the open wound. However, a gas-forming infectious process could appear similar. Small left knee joint effusion. Small 2.2 x 0.9 cm rim enhancing fluid collection along the posterior aspect of the proximal left tibia. This is nonspecific in the postoperative setting but could reflect an abscess. Irregularity of the posterior cortex of the proximal left tibia. Given the clinical history, this is worrisome for osteomyelitis. -cont Dapto, would re-engage with ID team to ensure no Dapto resistance concerns and to make axel-operative recs for abx, CK for monitoring ordered for am -wound vac was withdrawn today after an attempt at more drainage of the wound this week -tentative plan for AKA on Thursday per Ortho -will re-engage with Cardiology regarding repeat preop evaluation based on events since admission -PICC line in place - historically in this admission d/c to facility noted to be difficult due to cost of the Daptomycin discharge planning - bilingual case manager aware LEFT LOWER EXT DVT: s/p IVC filter placement and now therapeutic on coumadin, hold coumadin now in preparation for AKA.. ACUTE BLOOD LOSS ANEMIA - s/p 4 units PRBCs patient has received four units of PRBCs during this admission and required another unit preop. She was noted to lose 400cc intraoperatively today. FFP was given to better manage bleeding. Will monitor CBC in am. HTN -controlled on Lopressor after increase to 37.5mg PO BID on 12/01 -continue Lopressor uninterrupted post-operatively and cont to hold diltiazem ATRIAL FIBRILLATION -?snf anticoagulation candidate -cont Metoprolol/hold diltiazem cont to monitor on telemetry DM2 -hold glipizide -can be resumed on discharge -insulin coverage -glycemic pharmacy consulted - PRESSURE ULCERS Pressure ulcer of right medial buttock, stage 2, POA and Pressure ulcer of medial sacrum, stage 2, not POA -- Wound care consulted DVT PROPHYLAXIS: coumadin-held in post-op period Dispo: likely 3-5 day recovery process prior to transfer to rehab Thank you for this consultation. Jamia Nichols DO [facility] Hospitalist Current Inpatient Medications: Current Inpatient Medications Medications (Trade) Dose Ordered Sig/Denisse Route Start Time Stop Time Status Last Admin Dose Admin Pantoprazole Sodium (Protonix Tab) 40 mg QAM PO 11/14/16 09:00 12/14/16 08:59 12/12/16 08:30 40 MG Acetaminophen (Tylenol Tab) 650 mg Q4H PRN PO 11/13/16 13:00 12/13/16 12:59 12/08/16 13:38 650 MG Docusate Sodium (coLACE CAP) 100 mg BID PO 11/13/16 21:00 12/13/16 20:59 12/11/16 08:41 100 MG Folic Acid (Folvite Tab) 1 mg DAILY PO 11/14/16 09:00 12/14/16 08:59 12/11/16 08:42 1 MG Tramadol HCl 50 mg 50 mg Q4H PRN PO 11/13/16 13:00 12/13/16 12:59 12/11/16 22:04 50 MG Daptomycin/Sodium Chloride (Cubicin IV/Nss 50ml) 62 ml @ 120 mls/hr Q24H IV 11/13/16 14:00 12/25/16 13:59 12/11/16 13:19 120 MLS/HR Glucose (Glucose 40% Gel) 15-30 GRAMS 15 GRAMS... UD PRN PO 11/13/16 14:30 12/13/16 14:29 Glucose (Glucose Chew Tab) 4-8 Tablets 4 Tabl... UD PRN PO 11/13/16 14:30 12/13/16 14:29 Dextrose (Dextrose 50% 50ML Syringe) 25-50ML OF 50% DW IV FOR... UD PRN IV 11/13/16 14:30 12/13/16 14:29 11/16/16 16:36 50 ML Glucagon (Glucagon Inj) 1 mg UD PRN SQ 11/13/16 14:30 12/13/16 14:29 Magnesium Hydroxide (Milk Of Magnesia Susp) 30 ml Q6H PRN PO 11/14/16 11:45 12/14/16 11:44 12/08/16 18:46 30 ML Bisacodyl (Dulcolax Supp) 10 mg DAILY PRN UT 11/14/16 11:45 12/14/16 11:44 Senna (Senokot Tab) 17.2 mg HS PO 11/14/16 21:00 12/14/16 20:59 12/10/16 20:32 17.2 MG Diphenhydramine HCl (Benadryl Inj) 25 mg Q8H PRN IV 11/14/16 11:45 12/14/16 11:44 Al Hydrox/Mg Hydrox/Simethicone (Maalox Max Susp) 15 ml Q4H PRN PO 11/14/16 11:45 12/14/16 11:44 Multivitamins (Multivitamin Tab) 1 tab QAM PO 11/15/16 09:00 12/15/16 08:59 12/11/16 08:42 1 TAB Ondansetron HCl (Zofran Inj) 4 mg Q6H PRN IV 11/14/16 11:45 12/14/16 11:44 12/11/16 08:40 4 MG Ferrous Gluconate (Ferrous Gluconate Tab) 324 mg TIDM PO 11/14/16 12:30 12/14/16 12:29 12/11/16 19:04 324 MG Heparin Sodium (Porcine) (Heparin 10 Unit/ ml 5 ml Flush) 5 ml PRN PRN FLUSH 11/15/16 01:30 12/15/16 01:29 12/06/16 05:56 5 ML Miconazole Nitrate (Desenex Powder) 1 appln BID PRN EXT 11/16/16 17:00 12/16/16 16:59 11/21/16 10:09 1 APPLN Metoprolol Tartrate (Lopressor Tab) 37.5 mg BID PO 11/30/16 21:00 12/30/16 20:59 12/12/16 08:29 37.5 MG Collagenase (Santyl Oint) 1 appln UD EXT 12/01/16 13:00 12/31/16 12:59 Enteral Nutritional Formula 1 box 1 box BIDM PO 12/05/16 17:45 01/04/17 17:44 12/11/16 19:04 1 BOX Sodium Chloride (Nss 1000ml) 1,000 ml @ 80 mls/hr [id number] IV 12/06/16 14:45 12/12/16 02:14 80 MLS/HR Warfarin Sodium 4 mg 4 mg DAILY@16 PO 12/07/16 16:00 01/06/17 15:59 Future Hold 12/10/16 16:43 4 MG Promethazine HCl/ Sodium Chloride (Phenergan Inj/ Nss 50ml) 50.5 ml @ 204 mls/hr Q6H PRN IV 12/07/16 15:00 01/06/17 14:59 Polyethylene (Miralax Powder Packet) 17 gm DAILY PO 12/09/16 09:00 01/08/17 08:59 12/11/16 08:41 17 GM Miscellaneous Information (Consult Glycemic Management Pharmacy) 1 ea UD PRN N/A 12/10/16 17:53 01/09/17 17:52 Insulin Glargine (Lantus Solostar Pen) SEE PROTOCOL BID SC 12/11/16 21:00 01/10/17 20:59 12/12/16 08:29 9 UNIT Insulin Aspart (novoLOG ASPART) SLIDING SCALE Q6 SC 12/12/16 00:00 01/11/17 00:00 12/12/16 06:12 1 UNITS
[2016-12-13] VITALS (9 sets, daily range): BP systolic 103–162; BP diastolic 62–88; PULSE 70–100; TEMP 36.4–36.8; O2SAT 95–100
[2016-12-13] MEDS: OXYCODONE/ACETAMINOPHEN 5-325 TAB PO PRN ×5 (00:35→23:49)
[2016-12-13] MEDS: SODIUM CHLORIDE 0.9% 1000ML 1,000 ML IV SCH ×2 (04:02→14:05)
[2016-12-13 06:22] LABS: HEMATOCRIT 23.9 % (37-47); MEAN CELL VOLUME 88.8 fL (80-100); MEAN CORPUSCULAR HEMOGLOBIN 29.7 pg (25-34); MEAN CORPUSCULAR HGB CONC 33.5 g/dl (32-36); MEAN PLATELET VOLUME 8.5 fL (7.4-10.4); PLATELET COUNT 566 K/uL (130-400); RED BLOOD COUNT 2.69 M/uL (4.2-5.4); WHITE BLOOD COUNT 14.15 K/uL (4.8-10.8)
[2016-12-13 06:38] LABS: INR 1.3 (0.9-1.1); PROTHROMBIN TIME (PATIENT) 14.5 SECONDS (9.0-12.0)
[2016-12-13 07:15] LABS: BUN/CREATININE RATIO 26.4 (10-20); CALCIUM 7.4 mg/dl (8.5-10.1); CREATININE 0.69 mg/dl (0.60-1.20); MAGNESIUM 1.5 mg/dl (1.8-2.4)
[2016-12-13] MEDS: POLYETHYLENE (MIRALAX) 17 GM PACK PO SCH (07:39)
[2016-12-13] MEDS: ARGININE EXTRA NUTRITION DRINK 1 BOX PO SCH ×2 (07:40→16:53)
[2016-12-13] MEDS: DOCUSATE SODIUM 100 MG CAP PO SCH (07:41)
[2016-12-13] MEDS: FERROUS GLUCONATE 324 MG TAB PO SCH ×3 (07:41→16:54)
[2016-12-13] MEDS: MULTIVITAMIN TAB PO SCH (07:42)
[2016-12-13] MEDS: METOPROLOL TARTRATE 25 MG TAB PO SCH ×2 (07:42→20:55)
[2016-12-13] MEDS: PANTOprazole SOD 40 MG TAB PO SCH (07:44)
[2016-12-13] MEDS: INSULIN ASPART 100 UNITS/ML 3 ML PEN SC SCH ×5 (07:47→20:59)
[2016-12-13] MEDS: INSULIN GLARGINE SOLOSTAR 100 UNITS/ML 3 ML PEN SC SCH ×2 (07:48→20:59)
[2016-12-13] MEDS ORDERED: MAG SULFATE 50% INJ 4 GM in SODIUM CHLORIDE 0.9% 500ML 500 ML IV SCH (08:00)
--- NOTE | 2016-12-13 08:54 | Orthopedic Progress Note ---
Orthopedic Progress Note Date of Service December 13, 2016. Subjective Post OP Day: 1 Reports: feeling well, pain controlled w PO medications, Denies: SOB, calf pain , chest pain, complaints, light headedness, nausea / vomiting Additional Notes: Patient states she is feeling well. Her pain is controlled with PO medication. She asked about removing her knee from the pill. It was advised to keep it elevated to prevent swelling into the bandage. Objective N/V intact, dressing C/D/I, A&O x3, hemovac drainage (10mL) Date Time Temp Pulse Resp B/P Pulse Ox O2 Delivery O2 Flow Rate FiO2 12/13/16 05:01 36.4 90 18 112/76 100 Nasal Cannula 2.0 12/13/16 04:00 100 Nasal Cannula 2.0 12/13/16 00:06 36.4 92 18 105/72 100 Nasal Cannula 2.0 12/13/16 00:01 100 Nasal Cannula 2.0 12/12/16 22:33 96 Nasal Cannula 2.0 12/12/16 20:00 Nasal Cannula 2.0 12/12/16 19:20 98 18 125/72 100 Nasal Cannula 2.0 12/12/16 18:20 36.2 95 16 119/78 100 Nasal Cannula 2.0 12/12/16 17:50 36.2 95 18 96/70 99 Nasal Cannula 2.0 12/12/16 17:20 36.2 96 18 100/63 100 Nasal Cannula 3.0 12/12/16 17:00 Nasal Cannula 2.0 12/12/16 16:47 36.2 96 18 114/77 99 Nasal Cannula 3.0 12/12/16 16:10 92 20 111/73 99 Nasal Cannula 3 12/12/16 15:55 89 20 123/82 97 Nasal Cannula 3 12/12/16 15:50 89 20 118/77 97 Nasal Cannula 3 Arterial Line 12/12/16 15:40 36.1 89 20 117/74 97 Nasal Cannula 3 116/72 12/12/16 15:30 89 20 117/74 97 Nasal Cannula 3 118/60 12/12/16 15:20 89 20 127/79 97 Nasal Cannula 3 105/55 12/12/16 15:10 89 20 100 Diffusion Mask 8 140/67 12/12/16 15:00 87 20 100 Diffusion Mask 8 89 129/63 12/12/16 14:51 36.3 89 25 157/72 100 Diffusion Mask 8 Laboratory Results 24 Hours: Test 12/12/16 11:53 12/12/16 13:14 12/13/16 05:51 Hematocrit 29.2 % 23.9 % Hemoglobin 9.5 g/dL 8.0 g/dL Prothromb Time International Ratio 1.5 1.3 Prothrombin Time 16.3 SECONDS 14.5 SECONDS Assessment & Plan Assessment: POD#1 Left AKA SEPTIC ARTHRITIS LEFT TOTAL KNEE ARTHROPLASTY - Appreciate Medical Management per [facility] Hospitalist service - s/p I&D, removal total knee implant, placement of antibiotic spacer. - Appreciate ID Consult, currently on Daptomycin. - pt will need possible placement but doubtful due to cost of Daptomycin - Irrigation wound vac reapplied today. Pressure increased to 150ml. - Zofran for nausea. Not taking narcotics presently. - Dr Ma currently away on vacation. - Appreciate input from Plastics - Overall, LLE wound does not seem to be improving. Dr Ibarra to decide on further surgery. Pt will need to be off of her Coumadin with INR down to 1.5 when decision for type of surgery needed. LLE DVT - Coumadin : IVC filter placed AFib DM2 HTN Plan: Will change dressing today to make sure incision looks clean. Drain D/C today (1) Infection of total left knee replacement (2) MRSA (methicillin resistant Staphylococcus aureus) septicemia (3) Leukocytosis Inhouse Planning Pain Management: Ultram, PO Tylenol DVT Prophylaxis: TEDs, SCDs, Coumadin, other (IVC Filter) Discharge Planning Discharge Planning: [facility] facility
--- NOTE | 2016-12-13 09:56 | Pharmacy Progress Note ---
Glycemic Control: Progress Nt Date of Service December 13, 2016. Scope Glycemic Pharmacist consulted by Dr Nichols on 12/10/16 for glycemic control and to write orders per [facility] inpatient glycemic control protocol. Objective Accuchecks BSG (last 24hrs): Test 12/12/16 14:58 12/12/16 18:22 12/12/16 20:59 12/12/16 23:53 Bedside Glucose 250 mg/dl (70-90) 313 mg/dl (70-90) 269 mg/dl (70-90) 251 mg/dl (70-90) Test 12/13/16 05:51 12/13/16 06:57 Random Glucose 101 mg/dl (70-99) Bedside Glucose 94 mg/dl (70-90) Laboratory Data (last 24hrs) HbA1c: 7.7% on 10/20/16 Recent Pertinent Medications Outpatient Anti-diabetic Regimen: * Lantus 18 units SQ BID * Glipizide ER 10mg PO Daily * NovoLog SSI QID The patient is currently receiving: * Basal insulin: Lantus 5-13 units every 12 hours * Correctional Insulin: Novolog Correction per scale ACHS Goal Range: Low 110 mg/dL - High 140 mg/dL Correction Factor: 15 mg/dL/unit * Prandial insulin: Per carb ratio of 1 unit per 7 grams CHO consumed * Oral Agents: On hold for admission Risk Factors for Insulin Resistance: * Infection * Diet - especially Arginine Supplement * Recent Surgery Assessment & Plan ASSESSMENT: * Pt POD # 1 s/p L AKA. * Basal insulin given prior to surgery at regular dosing (9 units SQ BID) --> this seems to be close to her true basal needs as this controls BSG while taking PO and NPO. When patient receives 18 units of basal insulin AM fasting BSGs average ~ 160mg/dl. Pt received 22 units of basal insulin yesterday which yielded an AM fasting BSG slightly below goal range at 94mg/dl this morning. BSG could also be slightly low secondary to 8 units of NovoLog given at HS last evening. True basal needs are most likely ~ 18-20 units/day * Pt returned from OR 12/12/16 with severe hyperglycemia (BSG = 313mg/dl) most likely d/t stress from surgery, dextrose IVF, and possible steroids intraop? Steroids not documented as given on eMAR but difficult to determine what all is given intraoperatively. Pt received large NovoLog bolus doses per Novolog scale and increase Lantus dose 12/12/16 HS to combat hyperglycemia. * Expect BSGs to improve today as patient was stable on previous regimen * ADA & AACE recommend a goal blood sugar range 140-180 mg/dl for the majority of critically ill & non-critically ill patients. However, more stringent targets may be selected in individual cases. Will utilize more stringent goal of 110-140mg/dl based on patient age & comorbidities. Additionally, tighter glycemic control is warranted to facilitate wound/infection healing. PLAN FOR INPATIENT GLYCEMIC CONTROL: No dramatic changes need made today. Hyperglycemia yesterday secondary to surgery, IVF, ?steroids?, missed NovoLog dosing at 1200 (bc in OR). This acute incident has resolved with current orders. * Continue to hold outpatient oral diabetes medications * Continue Basal insulin with Lantus SQ BID - will schedule dosing now that true basal needs determined. * Lantus 10 units SQ BID * Continue NovoLog per scale ACHS or Q6hrs while NPO * Goal Range: Low 110 mg/dL - High 140 mg/dL * Correction Factor: 15 mg/dL/unit * Nutritional / Prandial insulin per carb ratio of 1 unit per 7 grams CHO consumed * Please note that the plan above was derived based on current level of insulin resistance and hospital stress. These recommendations are appropriate for inpatient admission only. Plan of care upon discharge will need to be reassessed to avoid potential outpatient hypo/hyperglycemia. Thank you.
[2016-12-13] MEDS: DAPTOmycin IV 600 MG in SODIUM CHLORIDE 0.9% 50ML 50 ML IV SCH (14:01)
[2016-12-13] MEDS ORDERED: NURSING VERBAL MED ORDER ONE (14:45)
[2016-12-13] MEDS ORDERED: SODIUM CHLORIDE 0.9% 1000ML 500 ML IV SCH (15:00)
--- NOTE | 2016-12-13 17:32 | Progress Note ---
Medicine Progress Note Date & Time of Visit: December 13, 2016 at 17:17. Subjective 66 yo female with leg infection requiring a L AKA yesterday -doing well post-op -reports pain was 8/10 but is now 4/10 -states no abdominal pain, chest pain, shortness of breath -tolerating PO -states Ortho looked at wound this morning and said things are healing well. Objective Last 8 Hrs Date Time Temp Pulse Resp B/P Pulse Ox O2 Delivery O2 Flow Rate FiO2 12/13/16 16:00 Nasal Cannula 2.0 12/13/16 15:47 36.5 75 20 131/78 100 Nasal Cannula 2.0 12/13/16 12:00 Nasal Cannula 2.0 12/13/16 11:04 36.4 71 20 112/74 100 Nasal Cannula 2.0 Physical Exam: GEN: WNWD, in no acute distress, alert and appropriate, Cheng in place HEENT: NC/AT, normal sclerae, poor dentition CARDIO: reg rate, S1/2 heard without m/g/r LUNGS: CTA bilaterally, no crackles, rales or wheezes, good diaphragmatic excursion ABD: soft, non-tender, non-distended, no rebound or guarding EXTREMITY: L stump wrapped and drain in place; R BKA incision healing well. Arms are warm and well perfused. NEURO: CN 2-12 grossly intact SKIN: warm and dry and surgical wounds as above (not examined by me today) Laboratory Results: 12/13/16 05:51 12/13/16 05:51 Test 11/13/16 00:00 11/13/16 13:50 11/14/16 13:21 11/14/16 15:30 Synovial Fluid Source KNEE Synovial Fluid Color RED Synovial Fluid Appearance BLOODY Synovial Fluid WBC 74430 /uL (0-200) Synovial Fluid RBC 625692 /uL Synovial Fluid Polynuclear WBCs % 98.0 % Synovial Fluid Mononuclear WBCs % 2.0 % Urine Color DK YELLOW Urine Appearance CLEAR (CLEAR) Urine pH 8.0 (4.5-7.5) Urine Specific [place] 1.018 (1.000-1.030) Urine Protein 1+ (NEG) Urine Glucose (UA) NEG (NEG) Urine Ketones NEG (NEG) Urine Occult Blood 1+ (NEG) Urine Nitrite NEG (NEG) Urine Bilirubin NEG (NEG) Urine Urobilinogen NEG (NEG) Urine Leukocyte Esterase TRACE (NEG) Urine WBC (Auto) 5-10 /hpf (0-5) Urine RBC (Auto) 10-30 /hpf (0-4) Urine Hyaline Casts (Auto) 1-5 /lpf (0-5) Urine Epithelial Cells (Auto) 0-5 /lpf (0-5) Urine Bacteria (Auto) 2+ (NEG) Urine Renal Epithelial Cells /lpf (0-5) Urine Yeast (Auto) (NONE PRSENT) Troponin I < 0.015 ng/ml (0-0.045) Direct Bilirubin 0.2 mg/dl (0-0.2) Test 11/14/16 18:23 11/14/16 22:20 11/14/16 23:34 11/15/16 00:34 Dohle Bodies OCCASIONAL Myelocytes % 4.4 % Myelocytes # 1.67 K/uL (0-0) Activated Partial Thromboplast Time 42.4 SECONDS (21.0-31.0) Partial Thromboplastin Ratio 1.6 Bedside Glucose (other) 394 mg/dl (70-99) Polychromasia 1+ Beta-Hydroxybutyric Acid 2.02 mg/dL (0.2-2.81) Test 11/15/16 07:00 11/15/16 08:14 11/15/16 12:11 11/16/16 06:02 Venous Blood pH 7.40 (7.36-7.41) Blood Gas Sample Site Art Line Bedside Blood Gas pH (LAB) 7.38 (7.35-7.45) Bedside Blood Gas pCO2 (LAB) 31 mmHg (35-46) Bedside Blood Gas pO2 (LAB) 69 mmHg (80-95) Bedside Blood Gas HCO3 (LAB) 19 meq/L (19-24) Bedside Blood Gas Total CO2 20 mEq/l (24-31) Bedside Blood Gas Base Excess (LAB) -7.0 meq/L (-9-1.8) Bedside Blood Gas O2 Saturation 94.0 % (90-95) All Test NA Oxygen Delivery Device Room Air Nucleated RBC Absolute Count (auto) 0.03 K/uL (0-0) Neutrophils % (Manual) 90.4 % Lymphocytes % (Manual) 6.1 % Monocytes % (Manual) 1.7 % Eosinophils % (Manual) 0.9 % Metamyelocytes % 0.9 % Nucleated Red Blood Cells % 0.1 % Neutrophils # (Manual) 23.78 K/uL (1.4-6.5) Total Absolute Neutrophils 23.78 K/uL (1.4-6.5) Lymphocytes # (Manual) 1.60 K/uL (1.2-3.4) Total Absolute Lymphocytes 1.60 K/uL (1.2-3.4) Monocytes # (Manual) 0.45 K/uL (0.11-0.59) Eosinophils # (Manual) 0.24 K/uL (0-0.5) Metamyelocytes # 0.24 K/uL (0-0) Lactic Acid Level 1.0 mmol/L (0.4-2.0) Ionized Calcium 1.04 mmol/l (1.12-1.32) Test 11/17/16 05:55 12/03/16 16:59 12/11/16 05:15 12/13/16 05:51 Phosphorus Level 2.6 mg/dl (2.5-4.9) Prealbumin 10.8 mg/dl (20-40) Immature Granulocyte % (Auto) 0.5 % White Blood Count 9.42 K/uL (4.8-10.8) Red Blood Count 3.01 M/uL (4.2-5.4) 2.69 M/uL (4.2-5.4) Hemoglobin 8.4 g/dL (12.0-16.0) Hematocrit 26.7 % (37-47) Mean Corpuscular Volume 88.7 fL (80-100) 88.8 fL (80-100) Mean Corpuscular Hemoglobin 27.9 pg (25-34) 29.7 pg (25-34) Mean Corpuscular Hemoglobin Concent 31.5 g/dl (32-36) 33.5 g/dl (32-36) Platelet Count 769 K/uL (130-400) Mean Platelet Volume 8.4 fL (7.4-10.4) 8.5 fL (7.4-10.4) Neutrophils (%) (Auto) 65.9 % Lymphocytes (%) (Auto) 15.3 % Monocytes (%) (Auto) 6.4 % Eosinophils (%) (Auto) 10.9 % Basophils (%) (Auto) 1.0 % Neutrophils # (Auto) 6.21 K/uL (1.4-6.5) Lymphocytes # (Auto) 1.44 K/uL (1.2-3.4) Monocytes # (Auto) 0.60 K/uL (0.11-0.59) Eosinophils # (Auto) 1.03 K/uL (0-0.5) Basophils # (Auto) 0.09 K/uL (0-0.2) Immature Granulocyte # (Auto) 0.05 K/uL (0.00-0.02) Red Blood Cell Morphology Unremarkable Erythrocyte Sedimentation Rate 55 mm/hr (0-21) Total Bilirubin 0.4 mg/dl (0.2-1) Aspartate Amino Transf (AST/SGOT) 7 U/L (15-37) Alanine Aminotransferase (ALT/SGPT) 12 U/L (12-78) Alkaline Phosphatase 85 U/L (45-117) Total Creatine Kinase 49 U/L (26-192) C-Reactive Protein 4.73 mg/dl (0-0.29) Total Protein 5.9 gm/dl (6.4-8.2) Albumin 1.7 gm/dl (3.4-5.0) Globulin 4.2 gm/dl (2.5-4.0) Albumin/Globulin Ratio 0.4 (0.9-2) RDW Standard Deviation 51.4 fL (36.4-46.3) RDW Coefficient of Variation 15.9 % (11.5-14.5) Prothrombin Time 14.5 SECONDS (9.0-12.0) Prothromb Time International Ratio 1.3 (0.9-1.1) Anion Gap 8.0 mmol/L (3-11) Est Creatinine Clear Calc Drug Dose 71.2 ml/min Estimated GFR () 104.4 Estimated GFR (Non- 90.1 BUN/Creatinine Ratio 26.4 (10-20) Calcium Level 7.4 mg/dl (8.5-10.1) Magnesium Level 1.5 mg/dl (1.8-2.4) Test 12/13/16 16:40 Bedside Glucose 209 mg/dl (70-90) Date/Time Source Procedure Growth Status 11/16/16 10:06 Blood Blood Culture - Final NO GROWTH Complete 11/14/16 10:20 Joint Fluid/Space (Synovial) Knee Left Gram Stain - Final Complete 11/14/16 10:20 Bacterial Culture - Final Staphylococcus Aureus Complete 11/14/16 23:00 Nasal MRSA DNA Surveillance Screen - Final Specimen Positive for MRSA by DNA Probe Complete 11/13/16 13:50 Urine,Catheterized Urine Culture - Final Citrobacter Freundii Complex Complete Last 24 Hours Test 12/12/16 18:22 12/12/16 20:59 12/12/16 23:53 12/13/16 05:51 Bedside Glucose 313 mg/dl 269 mg/dl 251 mg/dl White Blood Count 14.15 K/uL Red Blood Count 2.69 M/uL Hemoglobin 8.0 g/dL Hematocrit 23.9 % Mean Corpuscular Volume 88.8 fL Mean Corpuscular Hemoglobin 29.7 pg Mean Corpuscular Hemoglobin Concent 33.5 g/dl RDW Standard Deviation 51.4 fL RDW Coefficient of Variation 15.9 % Platelet Count 566 K/uL Mean Platelet Volume 8.5 fL Prothrombin Time 14.5 SECONDS Prothromb Time International Ratio 1.3 Sodium Level 141 mmol/L Potassium Level 4.0 mmol/L Chloride Level 109 mmol/L Carbon Dioxide Level 24 mmol/L Anion Gap 8.0 mmol/L Blood Urea Nitrogen 18 mg/dl Creatinine 0.69 mg/dl Est Creatinine Clear Calc Drug Dose 71.2 ml/min Estimated GFR () 104.4 Estimated GFR (Non- 90.1 BUN/Creatinine Ratio 26.4 Random Glucose 101 mg/dl Calcium Level 7.4 mg/dl Magnesium Level 1.5 mg/dl Test 12/13/16 06:57 12/13/16 10:58 12/13/16 16:40 Bedside Glucose 94 mg/dl 82 mg/dl 209 mg/dl Assessment & Plan Recent admission for septic arthritis for which she underwent and I&D and poly- exchange and was admitted for surgery on her left knee. She had a prolonged hospital course with sepsis 2/2 MRSA bacteremia, right foot necrosis requiring BKA and bilateral DVT with IVC filter placement in the presence of symptomatic anemia requiring blood transfusions. She was discharged to [facility] on IV Daptomycin via PICC line. She presented to Ortho office with worsening pain and drainage from the left knee. She was taken to the OR on 11/13 after L knee aspiration was concerninig for septic arthritis. While in the PACU she became hypotensive and tachycardic and she was given 3L of LR with phenylephrine with persistently low pressure, so was transferred to the ICU where her Cardizem and Metoprolol were put on hold. In the ICU she had episodes of rapid atrial fibrillation and responded well to an amiodarone bolus and drip which was then turned off. She was transferred to the floor on 11/17 and Cardizem was not restarted, but metoprolol was continued. In the first 3 days post-op, she required 4 total units of pRBCs, but her H/H has stayed stable since that time not requiring further transfusions since then. A wound vac was tried on the knee and poor wound healing was apparent over time. CT leg on 12/05 with findings as follows: comminuted, mildly displaced proximal left tibial fracture , moderate soft tissue gas adjacent to left knee which could be related to the open wound. However, a gas-forming infectious process could appear similar. Small left knee joint effusion. Small 2.2 x 0.9 cm rim enhancing fluid collection along the posterior aspect of the proximal left tibia. This is nonspecific in the postoperative setting but could reflect an abscess. Irregularity of the posterior cortex of the proximal left tibia. Given the clinical history, this is worrisome for osteomyelitis. It was decided to perform AKA, which was done on 12/12. Of note, she had been restarted on coumadin prior to this and was tolerating therapeutic levels. She is currently post-op and doing well with some expected pain. There is some decrease in her urine output, which is being monitored with a Cheng. SEPSIS with SEPTIC ARTHRITIS LEFT KNEE W/PROSTHETIC JOINT MRSA BACTEREMIA 12/13: Post-op Day 1, pain is better controlled today. Patient reports that wound is healing well on Ortho exam earlier. She is tolerating PO and has no other symptoms at this time. Telemetry reviewed and no significant events were seen. Will wait for Ortho OK to restart coumadin for atrial fibrillation/blood clot. -cont Dapto, ID following -PICC line in place - historically in this admission d/c to facility noted to be difficult due to cost of the Daptomycin discharge planning - disease case manager rn aware LEFT LOWER EXT DVT: s/p IVC filter placement, coumadin had been started prior to surgery, however, so will restart when OK with Ortho ACUTE BLOOD LOSS ANEMIA - patient has received four units of PRBCs during this admission and required another unit preop. She was noted to lose 400cc intraoperatively. FFP was given to better manage bleeding. H/H decreased 2 grams overnight. Pt is asymptomatic; transfusion not indicated at this time. Cont to monitor H/H in am. Cont holding coumadin until this stabilizes and is OK by Ortho. HTN -controlled on Lopressor after increase to 37.5mg PO BID on 12/01 -continue Lopressor uninterrupted post-operatively and cont to hold diltiazem ATRIAL FIBRILLATION -?long term care social worker anticoagulation candidate -coumadin on hold in post-op setting with worsened anemia -cont Metoprolol/hold diltiazem cont to monitor on telemetry OLIGURIA: bolus given cont to monitor urine output as she recovers post-op DM2 -hold glipizide -can be resumed on discharge -insulin coverage -glycemic pharmacy consulted PRESSURE ULCERS Pressure ulcer of right medial buttock, stage 2, POA and Pressure ulcer of medial sacrum, stage 2, not POA -- Wound care following cont to turn her q2hrs DVT PROPHYLAXIS: coumadin-held in post-op period Dispo: likely 3-5 day recovery process prior to transfer to rehab Thank you for this consultation. Jamia Nichols DO [facility] Hospitalist Current Inpatient Medications: Current Inpatient Medications Medications (Trade) Dose Ordered Sig/Denisse Route Start Time Stop Time Status Last Admin Dose Admin Pantoprazole Sodium (Protonix Tab) 40 mg QAM PO 11/14/16 09:00 12/14/16 08:59 12/13/16 07:44 40 MG Docusate Sodium (coLACE CAP) 100 mg BID PO 11/13/16 21:00 12/13/16 20:59 12/13/16 07:41 100 MG Folic Acid 1 mg 1 mg DAILY PO 11/14/16 09:00 12/14/16 08:59 12/13/16 07:42 1 MG Daptomycin/Sodium Chloride (Cubicin IV/Nss 50ml) 62 ml @ 120 mls/hr Q24H IV 11/13/16 14:00 12/25/16 13:59 12/13/16 14:01 120 MLS/HR Magnesium Hydroxide (Milk Of Magnesia Susp) 30 ml Q6H PRN PO 11/14/16 11:45 12/14/16 11:44 5/1/17 18:46 30 ML Bisacodyl (Dulcolax Supp) 10 mg DAILY PRN GA 11/14/16 11:45 12/14/16 11:44 Senna (Senokot Tab) 17.2 mg HS PO 11/14/16 21:00 12/14/16 20:59 12/12/16 20:00 17.2 MG Diphenhydramine HCl (Benadryl Inj) 25 mg Q8H PRN IV 11/14/16 11:45 12/14/16 11:44 Al Hydrox/Mg Hydrox/Simethicone (Maalox Max Susp) 15 ml Q4H PRN PO 11/14/16 11:45 12/14/16 11:44 Multivitamins (Multivitamin Tab) 1 tab QAM PO 11/15/16 09:00 12/15/16 08:59 12/13/16 07:42 1 TAB Ondansetron HCl (Zofran Inj) 4 mg Q6H PRN IV 11/14/16 11:45 12/14/16 11:44 12/12/16 18:02 4 MG Ferrous Gluconate (Ferrous Gluconate Tab) 324 mg TIDM PO 11/14/16 12:30 12/14/16 12:29 12/13/16 16:54 324 MG Heparin Sodium (Porcine) (Heparin 10 Unit/ ml 5 ml Flush) 5 ml PRN PRN FLUSH 11/15/16 01:30 12/15/16 01:29 12/06/16 05:56 5 ML Miconazole Nitrate (Desenex Powder) 1 appln BID PRN EXT 11/16/16 17:00 12/16/16 16:59 11/21/16 10:09 1 APPLN Metoprolol Tartrate (Lopressor Tab) 37.5 mg BID PO 11/30/16 21:00 12/30/16 20:59 12/13/16 07:42 37.5 MG Collagenase (Santyl Oint) 1 appln UD EXT 12/01/16 13:00 12/31/16 12:59 Enteral Nutritional Formula 1 box 1 box BIDM PO 12/05/16 17:45 01/04/17 17:44 12/13/16 16:53 1 BOX Sodium Chloride (Nss 1000ml) 1,000 ml @ 80 mls/hr [id number] IV 12/06/16 14:45 01/10/17 14:44 12/13/16 14:05 80 MLS/HR Warfarin Sodium 4 mg 4 mg DAILY@16 PO 12/07/16 16:00 01/06/17 15:59 Future Hold 12/10/16 16:43 4 MG Promethazine HCl/ Sodium Chloride (Phenergan Inj/ Nss 50ml) 50.5 ml @ 204 mls/hr Q6H PRN IV 12/07/16 15:00 01/06/17 14:59 12/12/16 20:48 204 MLS/HR Polyethylene (Miralax Powder Packet) 17 gm DAILY PO 12/09/16 09:00 01/08/17 08:59 12/11/16 08:41 17 GM Miscellaneous Information (Consult Glycemic Management Pharmacy) 1 ea UD PRN N/A 12/10/16 17:53 01/09/17 17:52 Insulin Glargine (Lantus Solostar Pen) SEE PROTOCOL BID SC 12/11/16 21:00 12/13/16 23:59 12/13/16 07:48 5 UNIT Oxycodone/ Acetaminophen (Percocet 5-325mg Tab) `1-2 TABS FOR PAIN `1 TAB... Q4H PRN PO 12/12/16 19:30 12/26/16 19:29 12/13/16 12:16 2 TAB Hydromorphone HCl (Dilaudid Inj) 1 mg Q3H PRN IV 12/12/16 19:30 12/26/16 19:29 12/12/16 19:57 1 MG Insulin Aspart (novoLOG ASPART) SLIDING SCALE ACHS SC 12/13/16 07:00 01/12/17 06:59 12/13/16 07:47 6 UNITS Insulin Glargine (Lantus Solostar Pen) 10 unit BID SC 12/14/16 09:00 01/13/17 08:59
[2016-12-13] MEDS: SENNA 8.6 MG TAB PO SCH (20:55)
[2016-12-14] VITALS (11 sets, daily range): BP systolic 113–174; BP diastolic 70–99; PULSE 76–88; TEMP 36.6–36.9; O2SAT 96–100
[2016-12-14] MEDS: SODIUM CHLORIDE 0.9% 1000ML 1,000 ML IV SCH ×2 (03:51→16:00)
[2016-12-14] MEDS: OXYCODONE/ACETAMINOPHEN 5-325 TAB PO PRN ×4 (03:52→20:05)
[2016-12-14 06:40] LABS: HEMATOCRIT 20.1 % (37-47); MEAN CORPUSCULAR HEMOGLOBIN 29.9 pg (25-34); MEAN CORPUSCULAR HGB CONC 32.8 g/dl (32-36); MEAN PLATELET VOLUME 8.8 fL (7.4-10.4); PLATELET COUNT 501 K/uL (130-400); RED BLOOD COUNT 2.21 M/uL (4.2-5.4); WHITE BLOOD COUNT 10.95 K/uL (4.8-10.8)
[2016-12-14 06:44] LABS: BUN/CREATININE RATIO 29.8 (10-20); CREATININE 0.45 mg/dl (0.60-1.20); MAGNESIUM 1.9 mg/dl (1.8-2.4); POTASSIUM 3.7 mmol/L (3.5-5.1)
[2016-12-14] MEDS: ARGININE EXTRA NUTRITION DRINK 1 BOX PO SCH ×2 (07:38→16:00)
[2016-12-14] MEDS: FERROUS GLUCONATE 324 MG TAB PO SCH ×2 (07:39→11:58)
[2016-12-14] MEDS: METOPROLOL TARTRATE 25 MG TAB PO SCH ×2 (07:39→22:02)
[2016-12-14] MEDS: POLYETHYLENE (MIRALAX) 17 GM PACK PO SCH (07:40)
[2016-12-14] MEDS: MULTIVITAMIN TAB PO SCH (07:40)
[2016-12-14] MEDS: INSULIN ASPART 100 UNITS/ML 3 ML PEN SC SCH ×4 (07:45→21:59)
[2016-12-14] MEDS: INSULIN GLARGINE SOLOSTAR 100 UNITS/ML 3 ML PEN SC SCH ×2 (07:46→21:58)
--- NOTE | 2016-12-14 08:24 | Orthopedic Progress Note ---
Orthopedic Progress Note Date of Service December 14, 2016. Subjective Post OP Day: 2 Reports: feeling well, pain controlled w PO medications, Denies: SOB, calf pain , chest pain, complaints, light headedness, nausea / vomiting Additional Notes: Patients H/H was 20.1 and 6.6 this morning. She was being transfused with 1 PRBC at the time of examination. She denied any lightheadness, dizziness yesterday throughout the day or this morning on exam. She states her pain is under control. Objective Date Time Temp Pulse Resp B/P Pulse Ox O2 Delivery O2 Flow Rate FiO2 12/14/16 08:00 Nasal Cannula 2.0 12/14/16 07:53 36.7 77 18 144/70 96 2.0 12/14/16 07:35 36.9 81 20 141/99 99 2.0 12/14/16 07:22 36.8 78 18 113/70 100 2.0 12/14/16 07:20 36.7 76 20 133/82 100 2.0 12/14/16 04:02 Nasal Cannula 2.0 12/14/16 04:00 36.6 78 18 138/78 100 12/14/16 00:06 Nasal Cannula 2.0 12/13/16 23:44 36.5 100 20 162/88 100 Nasal Cannula 2.0 12/13/16 20:00 Nasal Cannula 2.0 12/13/16 18:51 36.4 83 20 131/77 100 Nasal Cannula 2.0 12/13/16 16:00 Nasal Cannula 2.0 12/13/16 15:47 36.5 75 20 131/78 100 Nasal Cannula 2.0 12/13/16 12:00 Nasal Cannula 2.0 12/13/16 11:04 36.4 71 20 112/74 100 Nasal Cannula 2.0 Laboratory Results 24 Hours: Test 12/14/16 05:08 Hematocrit 20.1 % Hemoglobin 6.6 g/dL Assessment & Plan Assessment: POD#2 Left AKA LLE DVT - Coumadin : IVC filter placed AFib DM2 HTN Plan: Patient being transfused with 1 PRBC due to levels of her H/H AKMilli is doing well, dressing C/D/I. (1) Infection of total left knee replacement (2) MRSA (methicillin resistant Staphylococcus aureus) septicemia (3) Leukocytosis Inhouse Planning Pain Management: Ultram, PO Tylenol DVT Prophylaxis: TEDs, SCDs, Coumadin, other (IVC Filter) Discharge Planning [facility]
--- NOTE | 2016-12-14 09:02 | Pharmacy Progress Note ---
Glycemic Control: Progress Nt Date of Service December 14, 2016. Scope Glycemic Pharmacist consulted by Dr Nichols on 12/10/16 for glycemic control and to write orders per [facility] inpatient glycemic control protocol. Objective Accuchecks BSG (last 24hrs): Test 12/13/16 10:58 12/13/16 16:40 12/13/16 20:33 Bedside Glucose 82 mg/dl (70-90) 209 mg/dl (70-90) 166 mg/dl (70-90) Test 12/14/16 06:57 Bedside Glucose 206 mg/dl (70-90) HbA1c: HbA1c: 7.7% on 10/20/16 Recent Pertinent Medications Outpatient Anti-diabetic Regimen: * Lantus 18 units SQ BID * Glipizide ER 10mg PO Daily * NovoLog SSI QID The patient is currently receiving: * Basal insulin: Lantus 5-13 units every 12 hours --> dosing is based on BSG and PO status * Correctional Insulin: Novolog Correction per scale ACHS Goal Range: Low 110 mg/dL - High 140 mg/dL Correction Factor: 15 mg/dL/unit * Prandial insulin: Per carb ratio of 1 unit per 7 grams CHO consumed * Oral Agents: On hold for admission Risk Factors for Insulin Resistance: * Infection * Diet - especially Arginine Supplement * Recent Surgery Assessment & Plan ASSESSMENT: * Pt POD # 2 s/p L AKA. * Significant drop in Hgb --> pt receiving blood transfusion. This will affect the validity of future A1c's drawn in the month or so. Date 12/12/16 12/13/16 12/14/16 Time 0700 1200 1600 2100 0700 1200 1600 2100 0700 Lantus Dose 9 13 5 9 10 BSG 147 (in OR) 313 257 94 82 209 166 206 NovoLog 1 (in OR) 12 8 6 0 10 2 10 * BSGs fluctuating up and down d/t low/high doses of Lantus & NovoLog given. Current glycemic control orders seem reactive instead of proactive and are causing BSG swings. Need to stabilize dosing of Lantus to stabilize BSGs and prevent large doses of NovoLog to be given. * POD#0, 12/12/16 PM: BSG elevated (BSG = 313mg/dl, 257mg/dl) most likely d/t stress from surgery, dextrose IVF, and possible steroids intraop? Steroids not documented as given on eMAR but difficult to determine what all is given intraoperatively. Pt received large NovoLog bolus doses per Novolog scale and increase Lantus dose 12/12/16 HS to combat hyperglycemia. * POD#1, 12/13/16 AM: AM fasting BSG below goal range @ 94mg/dl therefore reduced basal insulin dose given. AM remained below goal at lunch and patient did not get lunch CHO coverage. This lead to re-bound hyperglycemia at dinner. Normal basal insulin dose given at HS * POD#2, 12/14/16 AM: AM fasting BSG elevated at 206mg/dl. Most likely d/t basal deficiency from 12/13/16. Will not give increased dose (13 units) as this causes yo-yo BSGs. Will resume previous basal insulin dosing (stop dosing per scale as this is causing severe BSG swings). Bolus insulin will cover hyperglycemia. BSGs should stabilize in the next day or so as Lantus re- establishes steady state with required dosing (~ 18-20 units of basal/day) PLAN FOR INPATIENT GLYCEMIC CONTROL: Change basal dosing to scheduled dose instead of BSG range based dosing. No aggressive changes today, hyperglycemia will resolve as Lantus re-establishes steady state. * Continue to hold outpatient oral diabetes medications * Basal Insulin * D/C BSG range based dosing * Start Lantus 10 units SQ BID * Bolus Insulin * Loosen CF slightly to prevent large doses to be given with BSG elevated, this leads to BSG swings * NovoLog per scale ACHS or Q6hrs while NPO * Goal Range: Low 110 mg/dL - High 140 mg/dL (tighter goal range based on tight glycemic control at baseline and to facilitate infection/wound healing) * Correction Factor: 20 mg/dL/unit * Nutritional / Prandial insulin per carb ratio of 1 unit per 7 grams CHO consumed * Please note that the plan above was derived based on current level of insulin resistance and hospital stress. These recommendations are appropriate for inpatient admission only. Plan of care upon discharge will need to be reassessed to avoid potential outpatient hypo/hyperglycemia. Thank you.
[2016-12-14 13:17] LABS: HEMATOCRIT 23.3 % (37-47)
[2016-12-14] MEDS: DAPTOmycin IV 600 MG in SODIUM CHLORIDE 0.9% 50ML 50 ML IV SCH (14:01)
[2016-12-14] MEDS ORDERED: ONDANSETRON INJ 8 MG in DEXTROSE 5% 50ML 50 ML IV ONE (16:45)
--- NOTE | 2016-12-14 21:40 | Progress Note ---
Medicine Progress Note Date & Time of Visit: December 14, 2016 at 18:37. Subjective 66 yo female with leg infection requiring a L AKA on 12/12 -actively vomiting today with nausea, uncertain trigger -just started -feels she wants to take a bowel movement -HB 6.6 s/p 1 unit ordered overnight -repeat Hb was 7.6 Objective Last 8 Hrs Date Time Temp Pulse Resp B/P Pulse Ox O2 Delivery O2 Flow Rate FiO2 12/14/16 16:00 Room Air 12/14/16 15:30 36.6 79 20 161/89 99 Room Air 12/14/16 12:00 Room Air 12/14/16 10:50 36.7 82 18 150/83 98 Physical Exam: GEN: WNWD, vomiting, alert and appropriate HEENT: NC/AT, normal sclerae, poor dentition CARDIO: not assessed 2/2 vomiting LUNGS: not assessed 2/2 vomiting, normal resp rate, no tachypnea was noted EXTREMITY: L stump wrapped and drain in place; R BKA incision healing well. Arms are warm and well perfused. SKIN: warm and dry and surgical wounds as above Laboratory Results: 12/14/16 05:08 12/14/16 13:00 12/14/16 05:08 Test 11/13/16 00:00 11/13/16 13:50 11/14/16 13:21 11/14/16 15:30 Synovial Fluid Source KNEE Synovial Fluid Color RED Synovial Fluid Appearance BLOODY Synovial Fluid WBC 02891 /uL (0-200) Synovial Fluid RBC 474952 /uL Synovial Fluid Polynuclear WBCs % 98.0 % Synovial Fluid Mononuclear WBCs % 2.0 % Urine Color DK YELLOW Urine Appearance CLEAR (CLEAR) Urine pH 8.0 (4.5-7.5) Urine Specific [place] 1.018 (1.000-1.030) Urine Protein 1+ (NEG) Urine Glucose (UA) NEG (NEG) Urine Ketones NEG (NEG) Urine Occult Blood 1+ (NEG) Urine Nitrite NEG (NEG) Urine Bilirubin NEG (NEG) Urine Urobilinogen NEG (NEG) Urine Leukocyte Esterase TRACE (NEG) Urine WBC (Auto) 5-10 /hpf (0-5) Urine RBC (Auto) 10-30 /hpf (0-4) Urine Hyaline Casts (Auto) 1-5 /lpf (0-5) Urine Epithelial Cells (Auto) 0-5 /lpf (0-5) Urine Bacteria (Auto) 2+ (NEG) Urine Renal Epithelial Cells /lpf (0-5) Urine Yeast (Auto) (NONE PRSENT) Troponin I < 0.015 ng/ml (0-0.045) Direct Bilirubin 0.2 mg/dl (0-0.2) Test 11/14/16 18:23 11/14/16 22:20 11/14/16 23:34 11/15/16 00:34 Dohle Bodies OCCASIONAL Myelocytes % 4.4 % Myelocytes # 1.67 K/uL (0-0) Activated Partial Thromboplast Time 42.4 SECONDS (21.0-31.0) Partial Thromboplastin Ratio 1.6 Bedside Glucose (other) 394 mg/dl (70-99) Polychromasia 1+ Beta-Hydroxybutyric Acid 2.02 mg/dL (0.2-2.81) Test 11/15/16 07:00 11/15/16 08:14 11/15/16 12:11 11/16/16 06:02 Venous Blood pH 7.40 (7.36-7.41) Blood Gas Sample Site Art Line Bedside Blood Gas pH (LAB) 7.38 (7.35-7.45) Bedside Blood Gas pCO2 (LAB) 31 mmHg (35-46) Bedside Blood Gas pO2 (LAB) 69 mmHg (80-95) Bedside Blood Gas HCO3 (LAB) 19 meq/L (19-24) Bedside Blood Gas Total CO2 20 mEq/l (24-31) Bedside Blood Gas Base Excess (LAB) -7.0 meq/L (-9-1.8) Bedside Blood Gas O2 Saturation 94.0 % (90-95) All Test NA Oxygen Delivery Device Room Air Nucleated RBC Absolute Count (auto) 0.03 K/uL (0-0) Neutrophils % (Manual) 90.4 % Lymphocytes % (Manual) 6.1 % Monocytes % (Manual) 1.7 % Eosinophils % (Manual) 0.9 % Metamyelocytes % 0.9 % Nucleated Red Blood Cells % 0.1 % Neutrophils # (Manual) 23.78 K/uL (1.4-6.5) Total Absolute Neutrophils 23.78 K/uL (1.4-6.5) Lymphocytes # (Manual) 1.60 K/uL (1.2-3.4) Total Absolute Lymphocytes 1.60 K/uL (1.2-3.4) Monocytes # (Manual) 0.45 K/uL (0.11-0.59) Eosinophils # (Manual) 0.24 K/uL (0-0.5) Metamyelocytes # 0.24 K/uL (0-0) Lactic Acid Level 1.0 mmol/L (0.4-2.0) Ionized Calcium 1.04 mmol/l (1.12-1.32) Test 11/17/16 05:55 12/03/16 16:59 12/11/16 05:15 12/13/16 05:51 Phosphorus Level 2.6 mg/dl (2.5-4.9) Prealbumin 10.8 mg/dl (20-40) Immature Granulocyte % (Auto) 0.5 % White Blood Count 9.42 K/uL (4.8-10.8) Red Blood Count 3.01 M/uL (4.2-5.4) Hemoglobin 8.4 g/dL (12.0-16.0) Hematocrit 26.7 % (37-47) Mean Corpuscular Volume 88.7 fL (80-100) Mean Corpuscular Hemoglobin 27.9 pg (25-34) Mean Corpuscular Hemoglobin Concent 31.5 g/dl (32-36) Platelet Count 769 K/uL (130-400) Mean Platelet Volume 8.4 fL (7.4-10.4) Neutrophils (%) (Auto) 65.9 % Lymphocytes (%) (Auto) 15.3 % Monocytes (%) (Auto) 6.4 % Eosinophils (%) (Auto) 10.9 % Basophils (%) (Auto) 1.0 % Neutrophils # (Auto) 6.21 K/uL (1.4-6.5) Lymphocytes # (Auto) 1.44 K/uL (1.2-3.4) Monocytes # (Auto) 0.60 K/uL (0.11-0.59) Eosinophils # (Auto) 1.03 K/uL (0-0.5) Basophils # (Auto) 0.09 K/uL (0-0.2) Immature Granulocyte # (Auto) 0.05 K/uL (0.00-0.02) Red Blood Cell Morphology Unremarkable Erythrocyte Sedimentation Rate 55 mm/hr (0-21) Total Bilirubin 0.4 mg/dl (0.2-1) Aspartate Amino Transf (AST/SGOT) 7 U/L (15-37) Alanine Aminotransferase (ALT/SGPT) 12 U/L (12-78) Alkaline Phosphatase 85 U/L (45-117) Total Creatine Kinase 49 U/L (26-192) C-Reactive Protein 4.73 mg/dl (0-0.29) Total Protein 5.9 gm/dl (6.4-8.2) Albumin 1.7 gm/dl (3.4-5.0) Globulin 4.2 gm/dl (2.5-4.0) Albumin/Globulin Ratio 0.4 (0.9-2) Prothrombin Time 14.5 SECONDS (9.0-12.0) Prothromb Time International Ratio 1.3 (0.9-1.1) Test 12/14/16 05:08 12/14/16 08:00 12/14/16 20:07 Red Blood Count 2.21 M/uL (4.2-5.4) Mean Corpuscular Volume 91.0 fL (80-100) Mean Corpuscular Hemoglobin 29.9 pg (25-34) Mean Corpuscular Hemoglobin Concent 32.8 g/dl (32-36) RDW Standard Deviation 53.7 fL (36.4-46.3) RDW Coefficient of Variation 16.2 % (11.5-14.5) Mean Platelet Volume 8.8 fL (7.4-10.4) Anion Gap 8.0 mmol/L (3-11) Est Creatinine Clear Calc Drug Dose 109.2 ml/min Estimated GFR () 120.2 Estimated GFR (Non- 103.7 BUN/Creatinine Ratio 29.8 (10-20) Calcium Level 7.0 mg/dl (8.5-10.1) Magnesium Level 1.9 mg/dl (1.8-2.4) Lab Scanned Report Blood Transfusion Bedside Glucose 159 mg/dl (70-90) Date/Time Source Procedure Growth Status 11/16/16 10:06 Blood Blood Culture - Final NO GROWTH Complete 11/14/16 10:20 Joint Fluid/Space (Synovial) Knee Left Gram Stain - Final Complete 11/14/16 10:20 Bacterial Culture - Final Staphylococcus Aureus Complete 11/14/16 23:00 Nasal MRSA DNA Surveillance Screen - Final Specimen Positive for MRSA by DNA Probe Complete 11/13/16 13:50 Urine,Catheterized Urine Culture - Final Citrobacter Freundii Complex Complete Last 24 Hours Test 12/13/16 20:33 12/14/16 05:08 12/14/16 06:57 12/14/16 08:00 Bedside Glucose 166 mg/dl 206 mg/dl White Blood Count 10.95 K/uL Red Blood Count 2.21 M/uL Hemoglobin 6.6 g/dL Hematocrit 20.1 % Mean Corpuscular Volume 91.0 fL Mean Corpuscular Hemoglobin 29.9 pg Mean Corpuscular Hemoglobin Concent 32.8 g/dl RDW Standard Deviation 53.7 fL RDW Coefficient of Variation 16.2 % Platelet Count 501 K/uL Mean Platelet Volume 8.8 fL Sodium Level 139 mmol/L Potassium Level 3.7 mmol/L Chloride Level 108 mmol/L Carbon Dioxide Level 23 mmol/L Anion Gap 8.0 mmol/L Blood Urea Nitrogen 13 mg/dl Creatinine 0.45 mg/dl Est Creatinine Clear Calc Drug Dose 109.2 ml/min Estimated GFR () 120.2 Estimated GFR (Non- 103.7 BUN/Creatinine Ratio 29.8 Random Glucose 198 mg/dl Calcium Level 7.0 mg/dl Magnesium Level 1.9 mg/dl Lab Scanned Report Blood Transfusion Test 12/14/16 11:17 12/14/16 13:00 12/14/16 16:15 Bedside Glucose 170 mg/dl 161 mg/dl Hemoglobin 7.6 g/dL Hematocrit 23.3 % Assessment & Plan Recent admission for septic arthritis for which she underwent and I&D and poly- exchange and was admitted for surgery on her left knee. She had a prolonged hospital course with sepsis 2/2 MRSA bacteremia, right foot necrosis requiring BKA and bilateral DVT with IVC filter placement in the presence of symptomatic anemia requiring blood transfusions. She was discharged to [facility] on IV Daptomycin via PICC line. She presented to Ortho office with worsening pain and drainage from the left knee. She was taken to the OR on 11/13 after L knee aspiration was concerninig for septic arthritis. While in the PACU she became hypotensive and tachycardic and she was given 3L of LR with phenylephrine with persistently low pressure, so was transferred to the ICU where her Cardizem and Metoprolol were put on hold. In the ICU she had episodes of rapid atrial fibrillation and responded well to an amiodarone bolus and drip which was then turned off. She was transferred to the floor on 11/17 and Cardizem was not restarted, but metoprolol was continued. In the first 3 days post-op, she required 4 total units of pRBCs, but her H/H has stayed stable since that time not requiring further transfusions since then. A wound vac was tried on the knee and poor wound healing was apparent over time. CT leg on 12/05 with findings as follows: comminuted, mildly displaced proximal left tibial fracture , moderate soft tissue gas adjacent to left knee which could be related to the open wound. However, a gas-forming infectious process could appear similar. Small left knee joint effusion. Small 2.2 x 0.9 cm rim enhancing fluid collection along the posterior aspect of the proximal left tibia. This is nonspecific in the postoperative setting but could reflect an abscess. Irregularity of the posterior cortex of the proximal left tibia. Given the clinical history, this is worrisome for osteomyelitis. It was decided to perform AKA, which was done on 12/12. Of note, she had been restarted on coumadin prior to this and was tolerating therapeutic levels. She is currently post-op and doing well with some expected pain. There is some decrease in her urine output, which is being monitored with a Cheng. SEPSIS with SEPTIC ARTHRITIS LEFT KNEE W/PROSTHETIC JOINT MRSA BACTEREMIA, S/P L AKA on 12/12 12/14: pain improved, initially tolerating food in the morning but then nautious and vomiting in the afternoon, anti-emetics given and she was better. Cont Dapto 12/13: Post-op Day 1, pain is better controlled today. Patient reports that wound is healing well on Ortho exam earlier. She is tolerating PO and has no other symptoms at this time. Telemetry reviewed and no significant events were seen. Will wait for Ortho OK to restart coumadin for atrial fibrillation/blood clot. -cont Dapto, ID following -PICC line in place - historically in this admission d/c to facility noted to be difficult due to cost of the Daptomycin discharge planning - showcase trimmer aware LEFT LOWER EXT DVT: s/p IVC filter placement, coumadin had been started prior to surgery, however, so will restart when OK with Ortho ACUTE BLOOD LOSS ANEMIA - 12/14: Hb dropped to 6.6 this morning. She received one unit with good response. IVF were stopped to prevent dillutional anemia. 12/13: patient has received four units of PRBCs during this admission and required another unit preop. She was noted to lose 400cc intraoperatively. FFP was given to better manage bleeding. H/H decreased 2 grams overnight. Pt is asymptomatic; transfusion not indicated at this time. Cont to monitor H/H in am. Cont holding coumadin until this stabilizes and is OK by Ortho. 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 Jamia Nichols DO [facility] Hospitalist Current Inpatient Medications: Current Inpatient Medications Medications (Trade) Dose Ordered Sig/Denisse Route Start Time Stop Time Status Last Admin Dose Admin Daptomycin/Sodium Chloride (Cubicin IV/Nss 50ml) 62 ml @ 120 mls/hr Q24H IV 11/13/16 14:00 12/25/16 13:59 12/14/16 14:01 120 MLS/HR Senna (Senokot Tab) 17.2 mg HS PO 11/14/16 21:00 12/14/16 20:59 12/13/16 20:55 17.2 MG Multivitamins (Multivitamin Tab) 1 tab QAM PO 11/15/16 09:00 12/15/16 08:59 12/14/16 07:40 1 TAB Heparin Sodium (Porcine) (Heparin 10 Unit/ ml 5 ml Flush) 5 ml PRN PRN FLUSH 11/15/16 01:30 12/15/16 01:29 12/06/16 05:56 5 ML Miconazole Nitrate (Desenex Powder) 1 appln BID PRN EXT 11/16/16 17:00 12/16/16 16:59 11/21/16 10:09 1 APPLN Metoprolol Tartrate (Lopressor Tab) 37.5 mg BID PO 11/30/16 21:00 12/30/16 20:59 12/14/16 07:39 37.5 MG Collagenase (Santyl Oint) 1 appln UD EXT 12/01/16 13:00 12/31/16 12:59 Enteral Nutritional Formula (Arginaid Extra) 1 box BIDM PO 12/05/16 17:45 01/04/17 17:44 12/14/16 07:38 1 BOX Warfarin Sodium 4 mg 4 mg DAILY@16 PO 12/07/16 16:00 01/06/17 15:59 Future Hold 12/10/16 16:43 4 MG Promethazine HCl/ Sodium Chloride (Phenergan Inj/ Nss 50ml) 50.5 ml @ 204 mls/hr Q6H PRN IV 12/07/16 15:00 01/06/17 14:59 12/12/16 20:48 204 MLS/HR Polyethylene (Miralax Powder Packet) 17 gm DAILY PO 12/09/16 09:00 01/08/17 08:59 12/11/16 08:41 17 GM Miscellaneous Information (Consult Glycemic Management Pharmacy) 1 ea UD PRN N/A 12/10/16 17:53 01/09/17 17:52 Oxycodone/ Acetaminophen (Percocet 5-325mg Tab) `1-2 TABS FOR PAIN `1 TAB... Q4H PRN PO 12/12/16 19:30 12/26/16 19:29 12/14/16 15:50 2 TAB Hydromorphone HCl (Dilaudid Inj) 1 mg Q3H PRN IV 12/12/16 19:30 12/26/16 19:29 12/12/16 19:57 1 MG Insulin Aspart (novoLOG ASPART) SLIDING SCALE ACHS SC 12/13/16 07:00 01/12/17 06:59 12/14/16 12:00 5 UNITS Insulin Glargine (Lantus Solostar Pen) 10 unit BID SC 12/14/16 09:00 01/13/17 08:59 12/14/16 07:46 10 UNIT Ondansetron HCl (Zofran Inj) 4 mg Q6H PRN IV 12/14/16 20:00 01/13/17 19:59
[2016-12-15] VITALS (7 sets, daily range): BP systolic 149–188; BP diastolic 70–108; PULSE 73–98; TEMP 36.6–37; O2SAT 93–97
[2016-12-15 05:57] LABS: HEMATOCRIT 24.3 % (37-47); MEAN CELL VOLUME 88.7 fL (80-100); MEAN CORPUSCULAR HEMOGLOBIN 29.9 pg (25-34); MEAN CORPUSCULAR HGB CONC 33.7 g/dl (32-36); MEAN PLATELET VOLUME 8.9 fL (7.4-10.4); PLATELET COUNT 586 K/uL (130-400); RED BLOOD COUNT 2.74 M/uL (4.2-5.4); WHITE BLOOD COUNT 13.72 K/uL (4.8-10.8)
--- NOTE | 2016-12-15 07:15 | Anesthesiology Progress Note ---
Anesthesia Post Op Note Date & Time December 15, 2016 at 07:15 Vital Signs Pain Intensity: 7.0 Vital Signs Past 12 Hours Date Time Temp Pulse Resp B/P Pulse Ox O2 Delivery O2 Flow Rate FiO2 12/15/16 04:09 37.0 86 18 165/70 97 Room Air 12/15/16 04:00 Room Air 12/15/16 00:02 Room Air 12/14/16 23:55 36.8 79 20 154/83 99 Room Air 12/14/16 20:00 Room Air Notes Mental Status: alert / awake / arousable, participated in evaluation Pt Amnestic to Procedure: Yes Nausea / Vomiting: adequately controlled Pain: adequately controlled Airway Patency, RR, SpO2: stable & adequate BP & HR: stable & adequate Hydration State: stable & adequate Neuraxial Anesthesia: sensory block resolved Anesthetic Complications: no major complications apparent
[2016-12-15] MEDS: METOPROLOL TARTRATE 25 MG TAB PO SCH ×2 (07:53→20:12)
[2016-12-15] MEDS: POLYETHYLENE (MIRALAX) 17 GM PACK PO SCH (07:54)
[2016-12-15] MEDS: INSULIN GLARGINE SOLOSTAR 100 UNITS/ML 3 ML PEN SC SCH ×2 (07:55→20:23)
[2016-12-15] MEDS: OXYCODONE/ACETAMINOPHEN 5-325 TAB PO PRN ×4 (07:56→23:46)
[2016-12-15] MEDS: ONDANSETRON INJ 2 MG/ML 2 ML VIAL IV PRN ×2 (07:58→15:48)
[2016-12-15] MEDS: ARGININE EXTRA NUTRITION DRINK 1 BOX PO SCH ×2 (07:59→17:50)
[2016-12-15] MEDS: INSULIN ASPART 100 UNITS/ML 3 ML PEN SC SCH ×4 (08:43→20:22)
--- NOTE | 2016-12-15 09:43 | Orthopedic Progress Note ---
Orthopedic Progress Note Date of Service December 15, 2016. Subjective Post OP Day: 3 Reports: feeling well, pain controlled w PO medications (Pain was increasing this AM. Just had a pain med at the time of the visit. Last one was the previous evening.) Objective N/V intact, dressing C/D/I, A&O x3 Dressing intact on the L AKA stump. The dressing was changed twice yesterday. Tender to palpation or with any ROM. Date Time Temp Pulse Resp B/P Pulse Ox O2 Delivery O2 Flow Rate FiO2 12/15/16 07:35 36.9 95 22 184/84 93 Room Air 12/15/16 04:09 37.0 86 18 165/70 97 Room Air 12/15/16 04:00 Room Air 12/15/16 00:02 Room Air 12/14/16 23:55 36.8 79 20 154/83 99 Room Air 12/14/16 20:00 Room Air 12/14/16 19:15 36.8 88 21 174/84 97 Room Air 12/14/16 16:00 Room Air 12/14/16 15:30 36.6 79 20 161/89 99 Room Air 12/14/16 12:00 Room Air 12/14/16 10:50 36.7 82 18 150/83 98 12/14/16 09:45 36.6 80 20 144/78 100 Laboratory Results 24 Hours: Test 12/14/16 13:00 12/15/16 05:10 Hematocrit 23.3 % 24.3 % Hemoglobin 7.6 g/dL 8.2 g/dL Assessment & Plan Assessment: POD#3 Left AKA LLE DVT - Coumadin : IVC filter placed AFib DM2 HTN Plan: AKA is doing well, dressing C/D/I. Plan for transfer to med/surg floor when medicine is OK with the transfer. Pain control is main goal at this time. (1) Infection of total left knee replacement (2) MRSA (methicillin resistant Staphylococcus aureus) septicemia (3) Leukocytosis Inhouse Planning Pain Management: Ultram, PO Tylenol DVT Prophylaxis: TEDs, SCDs, Coumadin, other (IVC Filter) Discharge Planning Discharge Planning: [facility] facility
--- NOTE | 2016-12-15 10:32 | Pharmacy Progress Note ---
Glycemic Control: Progress Nt Date of Service December 15, 2016. Scope Glycemic Pharmacist RE - consulted by Dr. Nichols on 12/10/16 for glycemic control and to write orders per [facility] inpatient glycemic control protocol. Objective Accuchecks BSG (last 24hrs): Test 12/14/16 11:17 12/14/16 16:15 12/14/16 20:07 12/15/16 06:34 Bedside Glucose 170 mg/dl (70-90) 161 mg/dl (70-90) 159 mg/dl (70-90) 178 mg/dl (70-90) Laboratory Data (last 24hrs) Test 12/15/16 05:10 White Blood Count 13.72 K/uL Recent Pertinent Medications Outpatient Anti-diabetic Regimen: * Glipizide ER 10mg qAM, Novolog QID per SS, Lantus 18 units BID * A1c = 7.7 % 10/20/16 Risk Factors for Insulin Resistance: * Infection/Surgery: POD3 s/p L AKA d/t infected; Currently receiving Dapto IV * Diet: DM2/José Assessment & Plan ASSESSMENT: * ADA & AACE recommend a goal blood sugar range 140-180 mg/dl for the majority of critically ill & non-critically ill patients. However, more stringent targets may be selected in individual cases. 12/14/16: * Pt POD # 2 s/p L AKA. * Significant drop in Hgb --> pt receiving blood transfusion. This will affect the validity of future A1c's drawn in the month or so. Date 12/12/16 12/13/16 12/14/16 Time 0700 1200 1600 2100 0700 1200 1600 2100 0700 Lantus Dose 9 13 5 9 10 BSG 147 (in OR) 313 257 94 82 209 166 206 NovoLog 1 (in OR) 12 8 6 0 10 2 10 * BSGs fluctuating up and down d/t low/high doses of Lantus & NovoLog given. Current glycemic control orders seem reactive instead of proactive and are causing BSG swings. Need to stabilize dosing of Lantus to stabilize BSGs and prevent large doses of NovoLog to be given. * POD#0, 12/12/16 PM: BSG elevated (BSG = 313mg/dl, 257mg/dl) most likely d/t stress from surgery, dextrose IVF, and possible steroids intraop? Steroids not documented as given on eMAR but difficult to determine what all is given intraoperatively. Pt received large NovoLog bolus doses per Novolog scale and increase Lantus dose 12/12/16 HS to combat hyperglycemia. * POD#1, 12/13/16 AM: AM fasting BSG below goal range @ 94mg/dl therefore reduced basal insulin dose given. AM remained below goal at lunch and patient did not get lunch CHO coverage. This lead to re-bound hyperglycemia at dinner. Normal basal insulin dose given at HS * POD#2, 12/14/16 AM: AM fasting BSG elevated at 206mg/dl. Most likely d/t basal deficiency from 12/13/16. Will not give increased dose (13 units) as this causes yo-yo BSGs. Will resume previous basal insulin dosing (stop dosing per scale as this is causing severe BSG swings). Bolus insulin will cover hyperglycemia. BSGs should stabilize in the next day or so as Lantus re- establishes steady state with required dosing (~ 18-20 units of basal/day) 12/15/16: * BSG control is adequate in response to changes made yesterday to DM regimen. * BSGs ranging 159 - 178 mg/dl in the past 24 hours * No changes to DM regimen warranted at this time. PLAN FOR INPATIENT GLYCEMIC CONTROL: * Continue Lantus 10 units BID * Novolog ACHS * Continue correction factor of 20 mg/dl/unit * Continue carb ratio of 1 unit per 7 grams CHO consumed * Continue goal range to Low 110 mg/dL - High 140 mg/dL * Please note that the plan above was derived based on current level of insulin resistance and hospital stress. These recommendations are appropriate for inpatient admission only. Plan of care upon discharge will need to be reassessed to avoid potential outpatient hypo/hyperglycemia. Thank you.
[2016-12-15] MEDS: DAPTOmycin IV 600 MG in SODIUM CHLORIDE 0.9% 50ML 50 ML IV SCH (13:11)
[2016-12-15] MEDS: NSS + 20MEQ KCL 1000ML 1,000 ML IV SCH (19:45)
[2016-12-15] MEDS: ONDANSETRON INJ 2 MG/ML 2 ML VIAL IV. SCH (19:45)
--- NOTE | 2016-12-15 20:49 | Progress Note ---
Medicine Progress Note Date & Time of Visit: December 15, 2016 at 18:36. Subjective 66 yo female with leg infection requiring a L AKA on 12/12 -actively vomiting today with nausea, uncertain trigger -continuous and patient reports that she can't keep anything down -no diarrhea, fevers, chills, nausea, or abdominal pain is present -bowel sounds are present on exam and she has had a BM last night -s/p 1 unit pRBC yesterday with appropriate H/H response Objective Last 8 Hrs Date Time Temp Pulse Resp B/P Pulse Ox O2 Delivery O2 Flow Rate FiO2 12/15/16 16:00 96 Room Air 2.0 12/15/16 15:06 36.8 84 20 160/81 96 Room Air 12/15/16 12:00 Room Air Physical Exam: GEN: WNWD, NAD, alert and appropriate HEENT: NC/AT, normal sclerae, poor dentition CARDIO: S1/2 heard, no mgr LUNGS: CTAB EXTREMITY: L stump wrapped with dressing c/d/i; R BKA incision healing well. Arms are warm and well perfused. SKIN: warm and dry and surgical wounds as above Laboratory Results: 12/15/16 05:10 12/14/16 05:08 Test 11/13/16 00:00 11/13/16 13:50 11/14/16 13:21 11/14/16 15:30 Synovial Fluid Source KNEE Synovial Fluid Color RED Synovial Fluid Appearance BLOODY Synovial Fluid WBC 37438 /uL (0-200) Synovial Fluid RBC 417837 /uL Synovial Fluid Polynuclear WBCs % 98.0 % Synovial Fluid Mononuclear WBCs % 2.0 % Urine Color DK YELLOW Urine Appearance CLEAR (CLEAR) Urine pH 8.0 (4.5-7.5) Urine Specific [place] 1.018 (1.000-1.030) Urine Protein 1+ (NEG) Urine Glucose (UA) NEG (NEG) Urine Ketones NEG (NEG) Urine Occult Blood 1+ (NEG) Urine Nitrite NEG (NEG) Urine Bilirubin NEG (NEG) Urine Urobilinogen NEG (NEG) Urine Leukocyte Esterase TRACE (NEG) Urine WBC (Auto) 5-10 /hpf (0-5) Urine RBC (Auto) 10-30 /hpf (0-4) Urine Hyaline Casts (Auto) 1-5 /lpf (0-5) Urine Epithelial Cells (Auto) 0-5 /lpf (0-5) Urine Bacteria (Auto) 2+ (NEG) Urine Renal Epithelial Cells /lpf (0-5) Urine Yeast (Auto) (NONE PRSENT) Troponin I < 0.015 ng/ml (0-0.045) Direct Bilirubin 0.2 mg/dl (0-0.2) Test 11/14/16 18:23 11/14/16 22:20 11/14/16 23:34 11/15/16 00:34 Dohle Bodies OCCASIONAL Myelocytes % 4.4 % Myelocytes # 1.67 K/uL (0-0) Activated Partial Thromboplast Time 42.4 SECONDS (21.0-31.0) Partial Thromboplastin Ratio 1.6 Bedside Glucose (other) 394 mg/dl (70-99) Polychromasia 1+ Beta-Hydroxybutyric Acid 2.02 mg/dL (0.2-2.81) Test 11/15/16 07:00 11/15/16 08:14 11/15/16 12:11 11/16/16 06:02 Venous Blood pH 7.40 (7.36-7.41) Blood Gas Sample Site Art Line Bedside Blood Gas pH (LAB) 7.38 (7.35-7.45) Bedside Blood Gas pCO2 (LAB) 31 mmHg (35-46) Bedside Blood Gas pO2 (LAB) 69 mmHg (80-95) Bedside Blood Gas HCO3 (LAB) 19 meq/L (19-24) Bedside Blood Gas Total CO2 20 mEq/l (24-31) Bedside Blood Gas Base Excess (LAB) -7.0 meq/L (-9-1.8) Bedside Blood Gas O2 Saturation 94.0 % (90-95) All Test NA Oxygen Delivery Device Room Air Nucleated RBC Absolute Count (auto) 0.03 K/uL (0-0) Neutrophils % (Manual) 90.4 % Lymphocytes % (Manual) 6.1 % Monocytes % (Manual) 1.7 % Eosinophils % (Manual) 0.9 % Metamyelocytes % 0.9 % Nucleated Red Blood Cells % 0.1 % Neutrophils # (Manual) 23.78 K/uL (1.4-6.5) Total Absolute Neutrophils 23.78 K/uL (1.4-6.5) Lymphocytes # (Manual) 1.60 K/uL (1.2-3.4) Total Absolute Lymphocytes 1.60 K/uL (1.2-3.4) Monocytes # (Manual) 0.45 K/uL (0.11-0.59) Eosinophils # (Manual) 0.24 K/uL (0-0.5) Metamyelocytes # 0.24 K/uL (0-0) Lactic Acid Level 1.0 mmol/L (0.4-2.0) Ionized Calcium 1.04 mmol/l (1.12-1.32) Test 11/17/16 05:55 12/03/16 16:59 12/11/16 05:15 12/13/16 05:51 Phosphorus Level 2.6 mg/dl (2.5-4.9) Prealbumin 10.8 mg/dl (20-40) Immature Granulocyte % (Auto) 0.5 % White Blood Count 9.42 K/uL (4.8-10.8) Red Blood Count 3.01 M/uL (4.2-5.4) Hemoglobin 8.4 g/dL (12.0-16.0) Hematocrit 26.7 % (37-47) Mean Corpuscular Volume 88.7 fL (80-100) Mean Corpuscular Hemoglobin 27.9 pg (25-34) Mean Corpuscular Hemoglobin Concent 31.5 g/dl (32-36) Platelet Count 769 K/uL (130-400) Mean Platelet Volume 8.4 fL (7.4-10.4) Neutrophils (%) (Auto) 65.9 % Lymphocytes (%) (Auto) 15.3 % Monocytes (%) (Auto) 6.4 % Eosinophils (%) (Auto) 10.9 % Basophils (%) (Auto) 1.0 % Neutrophils # (Auto) 6.21 K/uL (1.4-6.5) Lymphocytes # (Auto) 1.44 K/uL (1.2-3.4) Monocytes # (Auto) 0.60 K/uL (0.11-0.59) Eosinophils # (Auto) 1.03 K/uL (0-0.5) Basophils # (Auto) 0.09 K/uL (0-0.2) Immature Granulocyte # (Auto) 0.05 K/uL (0.00-0.02) Red Blood Cell Morphology Unremarkable Erythrocyte Sedimentation Rate 55 mm/hr (0-21) Total Bilirubin 0.4 mg/dl (0.2-1) Aspartate Amino Transf (AST/SGOT) 7 U/L (15-37) Alanine Aminotransferase (ALT/SGPT) 12 U/L (12-78) Alkaline Phosphatase 85 U/L (45-117) Total Creatine Kinase 49 U/L (26-192) C-Reactive Protein 4.73 mg/dl (0-0.29) Total Protein 5.9 gm/dl (6.4-8.2) Albumin 1.7 gm/dl (3.4-5.0) Globulin 4.2 gm/dl (2.5-4.0) Albumin/Globulin Ratio 0.4 (0.9-2) Prothrombin Time 14.5 SECONDS (9.0-12.0) Prothromb Time International Ratio 1.3 (0.9-1.1) Test 12/14/16 05:08 12/14/16 08:00 12/15/16 05:10 12/15/16 20:14 Anion Gap 8.0 mmol/L (3-11) Est Creatinine Clear Calc Drug Dose 109.2 ml/min Estimated GFR () 120.2 Estimated GFR (Non- 103.7 BUN/Creatinine Ratio 29.8 (10-20) Calcium Level 7.0 mg/dl (8.5-10.1) Magnesium Level 1.9 mg/dl (1.8-2.4) Lab Scanned Report Blood Transfusion Red Blood Count 2.74 M/uL (4.2-5.4) Mean Corpuscular Volume 88.7 fL (80-100) Mean Corpuscular Hemoglobin 29.9 pg (25-34) Mean Corpuscular Hemoglobin Concent 33.7 g/dl (32-36) RDW Standard Deviation 51.5 fL (36.4-46.3) RDW Coefficient of Variation 16.0 % (11.5-14.5) Mean Platelet Volume 8.9 fL (7.4-10.4) Bedside Glucose 114 mg/dl (70-90) Date/Time Source Procedure Growth Status 11/16/16 10:06 Blood Blood Culture - Final NO GROWTH Complete 11/14/16 10:20 Joint Fluid/Space (Synovial) Knee Left Gram Stain - Final Complete 11/14/16 10:20 Bacterial Culture - Final Staphylococcus Aureus Complete 11/14/16 23:00 Nasal MRSA DNA Surveillance Screen - Final Specimen Positive for MRSA by DNA Probe Complete 11/13/16 13:50 Urine,Catheterized Urine Culture - Final Citrobacter Freundii Complex Complete Last 24 Hours Test 12/14/16 20:07 12/15/16 05:10 12/15/16 06:34 12/15/16 10:44 Bedside Glucose 159 mg/dl 178 mg/dl 139 mg/dl White Blood Count 13.72 K/uL Red Blood Count 2.74 M/uL Hemoglobin 8.2 g/dL Hematocrit 24.3 % Mean Corpuscular Volume 88.7 fL Mean Corpuscular Hemoglobin 29.9 pg Mean Corpuscular Hemoglobin Concent 33.7 g/dl RDW Standard Deviation 51.5 fL RDW Coefficient of Variation 16.0 % Platelet Count 586 K/uL Mean Platelet Volume 8.9 fL Test 12/15/16 16:11 Bedside Glucose 138 mg/dl Assessment & Plan Recent admission for septic arthritis for which she underwent and I&D and poly- exchange and was admitted for surgery on her left knee. She had a prolonged hospital course with sepsis 2/2 MRSA bacteremia, right foot necrosis requiring BKA and bilateral DVT with IVC filter placement in the presence of symptomatic anemia requiring blood transfusions. She was discharged to [facility] on IV Daptomycin via PICC line. She presented to Ortho office with worsening pain and drainage from the left knee. She was taken to the OR on 11/13 after L knee aspiration was concerning for septic arthritis. While in the PACU she became hypotensive and tachycardic and she was given 3L of LR with phenylephrine with persistently low pressure, so was transferred to the ICU where her Cardizem and Metoprolol were put on hold. In the ICU she had episodes of rapid atrial fibrillation and responded well to an amiodarone bolus and drip which was then turned off. She was transferred to the floor on 11/17 and Cardizem was not restarted, but metoprolol was continued. In the first 3 days post-op, she required 4 total units of pRBCs, but her H/H has stayed stable since that time not requiring further transfusions. A wound vac was tried on the knee and poor wound healing was apparent over time. CT leg on 12/05 with findings as follows: comminuted, mildly displaced proximal left tibial fracture, moderate soft tissue gas adjacent to left knee which could be related to the open wound. However, a gas-forming infectious process could appear similar. Small left knee joint effusion. Small 2.2 x 0.9 cm rim enhancing fluid collection along the posterior aspect of the proximal left tibia. This is nonspecific in the postoperative setting but could reflect an abscess. Irregularity of the posterior cortex of the proximal left tibia. Given the clinical history, this is worrisome for osteomyelitis. It was decided to perform AKA, which was done on 12/12. Of note, she had been restarted on coumadin prior to this and was tolerating therapeutic levels. She became anemic with a fall in H/H to 6.6/20 on 12/14. She was transfused 1 unit of blood with appropriate response. Following this, however, she began vomiting and hasn't stopped since. Has remained in sinus rhythm on telemetry. Zofan was scheduled with maintenance IVF started and she was transferred to the floor. SEPSIS with SEPTIC ARTHRITIS LEFT KNEE W/PROSTHETIC JOINT MRSA BACTEREMIA, S/P L AKA on 12/12 12/15: Pain managed but still vomiting and cannot tolerate PO. Starting IVF for maintenance and scheduled her Zofram. Uncertain trigger for this? Cont to monitor. 12/14: pain improved, initially tolerating food in the morning but then nautious and vomiting in the afternoon, anti-emetics given and she was better. Cont Dapto 12/13: Post-op Day 1, pain is better controlled today. Patient reports that wound is healing well on Ortho exam earlier. She is tolerating PO and has no other symptoms at this time. Telemetry reviewed and no significant events were seen. Will wait for Ortho OK to restart coumadin for atrial fibrillation/blood clot. -cont Dapto, ID following -PICC line in place - historically in this admission d/c to facility noted to be difficult due to cost of the Daptomycin discharge planning - family caseworker aware NAUSEA AND VOMITING: as above LEFT LOWER EXT DVT: s/p IVC filter placement, anticoagulation contraindicated with persistent anemia ACUTE BLOOD LOSS ANEMIA - 12/15 good response to blood given yesterday--> appropriate rise in H/H 12/14: Hb dropped to 6.6 this morning. She received one unit with good response. IVF were stopped to prevent dillutional anemia. 6: patient has received four units of PRBCs during this admission and required another unit preop. She was noted to lose 400cc intraoperatively. FFP was given to better manage bleeding. H/H decreased 2 grams overnight. Pt is asymptomatic; transfusion not indicated at this time. Cont to monitor H/H in am. Cont holding coumadin until this stabilizes and is OK by Ortho. HTN -uncontrolled 2/2 agitation from intractable vomiting all day -cont Lopressor after increase to 37.5mg PO BID on 12/01 -cont to hold diltiazem and scheduled antiemetics ATRIAL FIBRILLATION -sinus rhythm on tele-transferring to med/surg ?senior care anticoagulation candidate, with anticoagulation currently contraindicated 2/2 transfusion-dependent anemia -cont Metoprolol/hold diltiazem DM2 -hold glipizide -can be resumed on discharge -insulin coverage -glycemic pharmacy consulted PRESSURE ULCERS Pressure ulcer of right medial buttock, stage 2, POA and Pressure ulcer of medial sacrum, stage 2, not POA -- Wound care following cont to turn her q2hrs DVT PROPHYLAXIS: contraindicated 2/2 transfusion-dependent anemia Dispo: likely 3-5 day recovery process prior to transfer to rehab Thank you for this consultation. Jamia Nichols DO [facility] Hospitalist Current Inpatient Medications: Current Inpatient Medications Medications (Trade) Dose Ordered Sig/Denisse Route Start Time Stop Time Status Last Admin Dose Admin Daptomycin/Sodium Chloride (Cubicin IV/Nss 50ml) 62 ml @ 120 mls/hr Q24H IV 11/13/16 14:00 12/25/16 13:59 12/15/16 13:11 120 MLS/HR Miconazole Nitrate (Desenex Powder) 1 appln BID PRN EXT 11/16/16 17:00 12/16/16 16:59 11/21/16 10:09 1 APPLN Metoprolol Tartrate (Lopressor Tab) 37.5 mg BID PO 11/30/16 21:00 12/30/16 20:59 12/15/16 07:53 37.5 MG Collagenase (Santyl Oint) 1 appln UD EXT 12/01/16 13:00 12/31/16 12:59 Enteral Nutritional Formula (Arginaid Extra) 1 box BIDM PO 12/05/16 17:45 01/04/17 17:44 12/15/16 07:59 1 BOX Warfarin Sodium 4 mg 4 mg DAILY@16 PO 12/07/16 16:00 01/06/17 15:59 Future Hold 12/10/16 16:43 4 MG Promethazine HCl/ Sodium Chloride (Phenergan Inj/ Nss 50ml) 50.5 ml @ 204 mls/hr Q6H PRN IV 12/07/16 15:00 01/06/17 14:59 12/12/16 20:48 204 MLS/HR Polyethylene (Miralax Powder Packet) 17 gm DAILY PO 12/09/16 09:00 01/08/17 08:59 12/15/16 07:54 17 GM Miscellaneous Information (Consult Glycemic Management Pharmacy) 1 ea UD PRN N/A 12/10/16 17:53 01/09/17 17:52 Oxycodone/ Acetaminophen (Percocet 5-325mg Tab) `1-2 TABS FOR PAIN `1 TAB... Q4H PRN PO 12/12/16 19:30 12/26/16 19:29 12/15/16 15:48 2 TAB Hydromorphone HCl (Dilaudid Inj) 1 mg Q3H PRN IV 12/12/16 19:30 12/26/16 19:29 12/12/16 19:57 1 MG Insulin Aspart (novoLOG ASPART) SLIDING SCALE ACHS SC 12/13/16 07:00 01/12/17 06:59 12/15/16 08:43 2 UNITS Insulin Glargine (Lantus Solostar Pen) 10 unit BID SC 12/14/16 09:00 01/13/17 08:59 12/15/16 07:55 10 UNIT Ondansetron HCl (Zofran Inj) 4 mg Q6H PRN IV 12/14/16 20:00 01/13/17 19:59 12/15/16 15:48 4 MG
[2016-12-16] MEDS: ONDANSETRON INJ 2 MG/ML 2 ML VIAL IV. SCH ×4 (01:07→20:47)
[2016-12-16 05:48] LABS: HEMATOCRIT 24.7 % (37-47); MEAN CELL VOLUME 87.9 fL (80-100); MEAN CORPUSCULAR HEMOGLOBIN 28.8 pg (25-34); MEAN CORPUSCULAR HGB CONC 32.8 g/dl (32-36); MEAN PLATELET VOLUME 8.3 fL (7.4-10.4); PLATELET COUNT 636 K/uL (130-400); RED BLOOD COUNT 2.81 M/uL (4.2-5.4); WHITE BLOOD COUNT 11.65 K/uL (4.8-10.8)
[2016-12-16] MEDS: OXYCODONE/ACETAMINOPHEN 5-325 TAB PO PRN ×3 (06:36→16:14)
[2016-12-16 06:46] LABS: ALB/GLOB RATIO 0.3 (0.9-2); ALKALINE PHOSPHATASE 80 U/L (45-117); ALT/SGPT 8 U/L (12-78); AST/SGOT 10 U/L (15-37); BLOOD UREA NITROGEN 5 mg/dl (7-18); CALCIUM 7.7 mg/dl (8.5-10.1); CARBON DIOXIDE 31 mmol/L (21-32); CHLORIDE 101 mmol/L (98-107); CREATININE 0.19 mg/dl (0.60-1.20); GLUCOSE 97 mg/dl (70-99); MAGNESIUM 1.4 mg/dl (1.8-2.4); PHOSPHORUS 2.9 mg/dl (2.5-4.9); POTASSIUM 3.2 mmol/L (3.5-5.1); SODIUM 137 mmol/L (136-145)
[2016-12-16 07:45] VITALS: BP 145/69; PULSE 83; TEMP 36.6; O2SAT 93
[2016-12-16] MEDS: ARGININE EXTRA NUTRITION DRINK 1 BOX PO SCH ×2 (09:04→18:42)
[2016-12-16] MEDS: POLYETHYLENE (MIRALAX) 17 GM PACK PO SCH (09:06)
[2016-12-16] MEDS: NSS + 20MEQ KCL 1000ML 1,000 ML IV SCH ×2 (09:07→22:20)
[2016-12-16] MEDS: METOPROLOL TARTRATE 25 MG TAB PO SCH ×2 (09:09→20:48)
[2016-12-16] MEDS: INSULIN ASPART 100 UNITS/ML 3 ML PEN SC SCH ×4 (09:25→20:51)
[2016-12-16] MEDS ORDERED: [UNRECOGNIZED DRUG - OTHER] IV SCH (11:00)
[2016-12-16] MEDS ORDERED: [UNRECOGNIZED DRUG - OTHER] IV ONE (11:00)
[2016-12-16] MEDS ORDERED: D5W IV ONE (11:00)
[2016-12-16] MEDS ORDERED: MAGNESIUM SULFATE IV ONE (11:00)
[2016-12-16] MEDS ORDERED: POTASSIUM CHLORIDE IV ONE (11:00)
[2016-12-16] MEDS ORDERED: MAG SULFATE 50% INJ 4 GM in SODIUM CHLORIDE 0.9% 500ML 500 ML IV SCH (11:00)
[2016-12-16] MEDS ORDERED: POTASSIUM CHLORIDE 20 MEQ TABCR PO ONE (11:00)
[2016-12-16] MEDS ORDERED: MAGNESIUM SULFATE IV SCH (11:00)
[2016-12-16] MEDS ORDERED: SODIUM CHLORIDE 0.9% IV SCH (11:00)
--- NOTE | 2016-12-16 11:00 | Pharmacy Progress Note ---
Glycemic Control: Progress Nt Date of Service December 16, 2016. Scope Glycemic Pharmacist consulted by on 12/10/16 for glycemic control and to write orders per [facility] inpatient glycemic control protocol. Objective Accuchecks BSG (last 24hrs): Test 12/15/16 16:11 12/15/16 20:14 12/16/16 05:33 12/16/16 08:12 Bedside Glucose 138 mg/dl (70-90) 114 mg/dl (70-90) 106 mg/dl (70-90) Random Glucose 97 mg/dl (70-99) Laboratory Data (last 24hrs) Test 12/16/16 05:33 Anion Gap 5.0 mmol/L BUN/Creatinine Ratio 24.0 Blood Urea Nitrogen 5 mg/dl Creatinine 0.19 mg/dl Potassium Level 3.2 mmol/L Sodium Level 137 mmol/L White Blood Count 11.65 K/uL Recent Pertinent Medications Outpatient Anti-diabetic Regimen: * Glipizide ER 10mg qAM, Novolog QID per SS, Lantus 18 units BID * A1c = 7.7 % 10/20/16 Risk Factors for Insulin Resistance: * Infection/Surgery: POD4 s/p L AKA d/t infected; Currently receiving Dapto IV * Diet: DM2/José Assessment & Plan ASSESSMENT: * ADA & AACE recommend a goal blood sugar range 140-180 mg/dl for the majority of critically ill & non-critically ill patients. However, more stringent targets may be selected in individual cases. 12/14/16: * Pt POD # 2 s/p L AKA. * Significant drop in Hgb --> pt receiving blood transfusion. This will affect the validity of future A1c's drawn in the month or so. Date 12/12/16 12/13/16 12/14/16 Time 0700 1200 1600 2100 0700 1200 1600 2100 0700 Lantus Dose 9 13 5 9 10 BSG 147 (in OR) 313 257 94 82 209 166 206 NovoLog 1 (in OR) 12 8 6 0 10 2 10 * BSGs fluctuating up and down d/t low/high doses of Lantus & NovoLog given. Current glycemic control orders seem reactive instead of proactive and are causing BSG swings. Need to stabilize dosing of Lantus to stabilize BSGs and prevent large doses of NovoLog to be given. * POD#0, 5/5/17 PM: BSG elevated (BSG = 313mg/dl, 257mg/dl) most likely d/t stress from surgery, dextrose IVF, and possible steroids intraop? Steroids not documented as given on eMAR but difficult to determine what all is given intraoperatively. Pt received large NovoLog bolus doses per Novolog scale and increase Lantus dose 12/12/16 HS to combat hyperglycemia. * POD#1, 12/13/16 AM: AM fasting BSG below goal range @ 94mg/dl therefore reduced basal insulin dose given. AM remained below goal at lunch and patient did not get lunch CHO coverage. This lead to re-bound hyperglycemia at dinner. Normal basal insulin dose given at HS * POD#2, 12/14/16 AM: AM fasting BSG elevated at 206mg/dl. Most likely d/t basal deficiency from 12/13/16. Will not give increased dose (13 units) as this causes yo-yo BSGs. Will resume previous basal insulin dosing (stop dosing per scale as this is causing severe BSG swings). Bolus insulin will cover hyperglycemia. BSGs should stabilize in the next day or so as Lantus re- establishes steady state with required dosing (~ 18-20 units of basal/day) 12/15/16: * BSG control is adequate in response to changes made yesterday to DM regimen. * BSGs ranging 159 - 178 mg/dl in the past 24 hours * No changes to DM regimen warranted at this time. 12/16/16: * PO intake has diminished during the past 24 hours secondary to N/V. Thus, insulin needs have also declined and regimen appears heavy on basal. * Lantus placed on hold by provider. Will reduce Lantus dose by 50% to account for change in PO status. * No changes to Novolog will be made. PLAN FOR INPATIENT GLYCEMIC CONTROL: * Decrease Lantus per BSG scale qHS only * BSG less than 110 mg/dl: 0 units * BSG 111 - 140 mg/dl: 5 units * BSG 141 mg/dl and above: 10 units * Novolog ACHS * Continue correction factor of 20 mg/dl/unit * Continue carb ratio of 1 unit per 7 grams CHO consumed * Continue goal range to Low 110 mg/dL - High 140 mg/dL * Please note that the plan above was derived based on current level of insulin resistance and hospital stress. These recommendations are appropriate for inpatient admission only. Plan of care upon discharge will need to be reassessed to avoid potential outpatient hypo/hyperglycemia. Thank you.
[2016-12-16] MEDS: MICONAZOLE NITRATE POWDER 43 GM EXT PRN (11:54)
--- NOTE | 2016-12-16 11:58 | Orthopedic Progress Note ---
Orthopedic Progress Note Date of Service December 16, 2016. Subjective Post OP Day: 4 (Left Above Knee Amputation) Reports: feeling well, pain controlled w PO medications, Denies: SOB, chest pain , complaints, light headedness Objective N/V intact, dressing C/D/I, A&O x3 Dressing intact on the L AKA stump. Date Time Temp Pulse Resp B/P Pulse Ox O2 Delivery O2 Flow Rate FiO2 12/16/16 07:45 36.6 83 18 145/69 93 Room Air 12/16/16 07:20 Room Air 12/15/16 23:45 36.7 73 18 149/81 96 Room Air 12/15/16 23:45 Room Air 12/15/16 21:00 Room Air 12/15/16 21:00 36.6 95 157/77 95 Room Air 12/15/16 20:00 Room Air 12/15/16 20:00 36.8 98 20 188/108 95 Room Air 12/15/16 16:00 96 Room Air 2.0 12/15/16 15:06 36.8 84 20 160/81 96 Room Air 12/15/16 12:00 Room Air Laboratory Results 24 Hours: Test 12/16/16 05:33 Hematocrit 24.7 % Hemoglobin 8.1 g/dL Assessment & Plan Assessment: POD#4 Left AKA LLE DVT - Coumadin : IVC filter placed AFib DM2 HTN Plan: AKA is doing well, dressing C/D/I. patient likely transfer to [facility] when medically stable. (1) Infection of total left knee replacement (2) MRSA (methicillin resistant Staphylococcus aureus) septicemia (3) Leukocytosis
--- NOTE | 2016-12-16 15:00 | Progress Note ---
Medicine Progress Note Date & Time of Visit: December 16, 2016 at 14:04. Subjective -tolerating PO today -denies nausea or vomiting after Zofran was scheduled and maintenance IVF started overnight -reports last BM was two days ago -pain is well-managed with Percocet -two sisters are at bedside and we discussed the plan and possibility for her to go to rehab in 1-2 days -we also spoke about her indications for coumadin and why we are not pursuing that anymore right now as we had been pre-operatively -all questions were answered to their satisfaction -of note, pt sister mentioned that as the pt lives in [facility], she cannot find a transport service that will get her to and from appointments in [place]. This is a long-term issue; appreciate CM assistance with this. Objective Last 8 Hrs Date Time Temp Pulse Resp B/P Pulse Ox O2 Delivery O2 Flow Rate FiO2 12/16/16 07:45 36.6 83 18 145/69 93 Room Air 12/16/16 07:20 Room Air Physical Exam: GEN: WNWD, NAD, alert and appropriate HEENT: NC/AT, normal sclerae, poor dentition CARDIO: S1/2 heard, no mgr LUNGS: CTAB AbD: nontender, soft, +BS, obese EXTREMITY: L stump wrapped with dressing c/d/i; R BKA incision healing well. Arms are warm and well perfused. SKIN: warm and dry and surgical wounds as above Laboratory Results: 12/16/16 05:33 12/16/16 05:33 Test 11/13/16 00:00 11/13/16 13:50 11/14/16 13:21 11/14/16 15:30 Synovial Fluid Source KNEE Synovial Fluid Color RED Synovial Fluid Appearance BLOODY Synovial Fluid WBC 51547 /uL (0-200) Synovial Fluid RBC 604672 /uL Synovial Fluid Polynuclear WBCs % 98.0 % Synovial Fluid Mononuclear WBCs % 2.0 % Urine Color DK YELLOW Urine Appearance CLEAR (CLEAR) Urine pH 8.0 (4.5-7.5) Urine Specific [place] 1.018 (1.000-1.030) Urine Protein 1+ (NEG) Urine Glucose (UA) NEG (NEG) Urine Ketones NEG (NEG) Urine Occult Blood 1+ (NEG) Urine Nitrite NEG (NEG) Urine Bilirubin NEG (NEG) Urine Urobilinogen NEG (NEG) Urine Leukocyte Esterase TRACE (NEG) Urine WBC (Auto) 5-10 /hpf (0-5) Urine RBC (Auto) 10-30 /hpf (0-4) Urine Hyaline Casts (Auto) 1-5 /lpf (0-5) Urine Epithelial Cells (Auto) 0-5 /lpf (0-5) Urine Bacteria (Auto) 2+ (NEG) Urine Renal Epithelial Cells /lpf (0-5) Urine Yeast (Auto) (NONE PRSENT) Troponin I < 0.015 ng/ml (0-0.045) Direct Bilirubin 0.2 mg/dl (0-0.2) Test 11/14/16 18:23 11/14/16 22:20 11/14/16 23:34 11/15/16 00:34 Dohle Bodies OCCASIONAL Myelocytes % 4.4 % Myelocytes # 1.67 K/uL (0-0) Activated Partial Thromboplast Time 42.4 SECONDS (21.0-31.0) Partial Thromboplastin Ratio 1.6 Bedside Glucose (other) 394 mg/dl (70-99) Polychromasia 1+ Beta-Hydroxybutyric Acid 2.02 mg/dL (0.2-2.81) Test 11/15/16 07:00 11/15/16 08:14 11/15/16 12:11 11/16/16 06:02 Venous Blood pH 7.40 (7.36-7.41) Blood Gas Sample Site Art Line Bedside Blood Gas pH (LAB) 7.38 (7.35-7.45) Bedside Blood Gas pCO2 (LAB) 31 mmHg (35-46) Bedside Blood Gas pO2 (LAB) 69 mmHg (80-95) Bedside Blood Gas HCO3 (LAB) 19 meq/L (19-24) Bedside Blood Gas Total CO2 20 mEq/l (24-31) Bedside Blood Gas Base Excess (LAB) -7.0 meq/L (-9-1.8) Bedside Blood Gas O2 Saturation 94.0 % (90-95) All Test NA Oxygen Delivery Device Room Air Nucleated RBC Absolute Count (auto) 0.03 K/uL (0-0) Neutrophils % (Manual) 90.4 % Lymphocytes % (Manual) 6.1 % Monocytes % (Manual) 1.7 % Eosinophils % (Manual) 0.9 % Metamyelocytes % 0.9 % Nucleated Red Blood Cells % 0.1 % Neutrophils # (Manual) 23.78 K/uL (1.4-6.5) Total Absolute Neutrophils 23.78 K/uL (1.4-6.5) Lymphocytes # (Manual) 1.60 K/uL (1.2-3.4) Total Absolute Lymphocytes 1.60 K/uL (1.2-3.4) Monocytes # (Manual) 0.45 K/uL (0.11-0.59) Eosinophils # (Manual) 0.24 K/uL (0-0.5) Metamyelocytes # 0.24 K/uL (0-0) Lactic Acid Level 1.0 mmol/L (0.4-2.0) Ionized Calcium 1.04 mmol/l (1.12-1.32) Test 12/03/16 16:59 12/11/16 05:15 12/13/16 05:51 12/14/16 08:00 Prealbumin 10.8 mg/dl (20-40) Immature Granulocyte % (Auto) 0.5 % White Blood Count 9.42 K/uL (4.8-10.8) Red Blood Count 3.01 M/uL (4.2-5.4) Hemoglobin 8.4 g/dL (12.0-16.0) Hematocrit 26.7 % (37-47) Mean Corpuscular Volume 88.7 fL (80-100) Mean Corpuscular Hemoglobin 27.9 pg (25-34) Mean Corpuscular Hemoglobin Concent 31.5 g/dl (32-36) Platelet Count 769 K/uL (130-400) Mean Platelet Volume 8.4 fL (7.4-10.4) Neutrophils (%) (Auto) 65.9 % Lymphocytes (%) (Auto) 15.3 % Monocytes (%) (Auto) 6.4 % Eosinophils (%) (Auto) 10.9 % Basophils (%) (Auto) 1.0 % Neutrophils # (Auto) 6.21 K/uL (1.4-6.5) Lymphocytes # (Auto) 1.44 K/uL (1.2-3.4) Monocytes # (Auto) 0.60 K/uL (0.11-0.59) Eosinophils # (Auto) 1.03 K/uL (0-0.5) Basophils # (Auto) 0.09 K/uL (0-0.2) Immature Granulocyte # (Auto) 0.05 K/uL (0.00-0.02) Red Blood Cell Morphology Unremarkable Erythrocyte Sedimentation Rate 55 mm/hr (0-21) Total Creatine Kinase 49 U/L (26-192) C-Reactive Protein 4.73 mg/dl (0-0.29) Prothrombin Time 14.5 SECONDS (9.0-12.0) Prothromb Time International Ratio 1.3 (0.9-1.1) Lab Scanned Report Blood Transfusion Test 12/16/16 05:33 12/16/16 08:12 Red Blood Count 2.81 M/uL (4.2-5.4) Mean Corpuscular Volume 87.9 fL (80-100) Mean Corpuscular Hemoglobin 28.8 pg (25-34) Mean Corpuscular Hemoglobin Concent 32.8 g/dl (32-36) RDW Standard Deviation 49.5 fL (36.4-46.3) RDW Coefficient of Variation 15.4 % (11.5-14.5) Mean Platelet Volume 8.3 fL (7.4-10.4) Anion Gap 5.0 mmol/L (3-11) Est Creatinine Clear Calc Drug Dose 311.9 ml/min Estimated GFR () > 150.0 Estimated GFR (Non- 137.7 BUN/Creatinine Ratio 24.0 (10-20) Calcium Level 7.7 mg/dl (8.5-10.1) Phosphorus Level 2.9 mg/dl (2.5-4.9) Magnesium Level 1.4 mg/dl (1.8-2.4) Total Bilirubin 0.6 mg/dl (0.2-1) Aspartate Amino Transf (AST/SGOT) 10 U/L (15-37) Alanine Aminotransferase (ALT/SGPT) 8 U/L (12-78) Alkaline Phosphatase 80 U/L (45-117) Total Protein 5.5 gm/dl (6.4-8.2) Albumin 1.4 gm/dl (3.4-5.0) Globulin 4.1 gm/dl (2.5-4.0) Albumin/Globulin Ratio 0.3 (0.9-2) Bedside Glucose 106 mg/dl (70-90) Date/Time Source Procedure Growth Status 11/16/16 10:06 Blood Blood Culture - Final NO GROWTH Complete 11/14/16 10:20 Joint Fluid/Space (Synovial) Knee Left Gram Stain - Final Complete 11/14/16 10:20 Bacterial Culture - Final Staphylococcus Aureus Complete 11/14/16 23:00 Nasal MRSA DNA Surveillance Screen - Final Specimen Positive for MRSA by DNA Probe Complete 11/13/16 13:50 Urine,Catheterized Urine Culture - Final Citrobacter Freundii Complex Complete Last 24 Hours Test 12/15/16 16:11 12/15/16 20:14 12/16/16 05:33 12/16/16 08:12 Bedside Glucose 138 mg/dl 114 mg/dl 106 mg/dl White Blood Count 11.65 K/uL Red Blood Count 2.81 M/uL Hemoglobin 8.1 g/dL Hematocrit 24.7 % Mean Corpuscular Volume 87.9 fL Mean Corpuscular Hemoglobin 28.8 pg Mean Corpuscular Hemoglobin Concent 32.8 g/dl RDW Standard Deviation 49.5 fL RDW Coefficient of Variation 15.4 % Platelet Count 636 K/uL Mean Platelet Volume 8.3 fL Sodium Level 137 mmol/L Potassium Level 3.2 mmol/L Chloride Level 101 mmol/L Carbon Dioxide Level 31 mmol/L Anion Gap 5.0 mmol/L Blood Urea Nitrogen 5 mg/dl Creatinine 0.19 mg/dl Est Creatinine Clear Calc Drug Dose 311.9 ml/min Estimated GFR () > 150.0 Estimated GFR (Non- 137.7 BUN/Creatinine Ratio 24.0 Random Glucose 97 mg/dl Calcium Level 7.7 mg/dl Phosphorus Level 2.9 mg/dl Magnesium Level 1.4 mg/dl Total Bilirubin 0.6 mg/dl Aspartate Amino Transf (AST/SGOT) 10 U/L Alanine Aminotransferase (ALT/SGPT) 8 U/L Alkaline Phosphatase 80 U/L Total Protein 5.5 gm/dl Albumin 1.4 gm/dl Globulin 4.1 gm/dl Albumin/Globulin Ratio 0.3 Assessment & Plan Recent admission for septic arthritis for which she underwent and I&D and poly- exchange and was admitted for surgery on her left knee. She had a prolonged hospital course with sepsis 2/2 MRSA bacteremia, right foot necrosis requiring BKA and bilateral DVT with IVC filter placement in the presence of symptomatic anemia requiring blood transfusions. She was discharged to [facility] on IV Daptomycin via PICC line. She presented to Ortho office with worsening pain and drainage from the left knee. She was taken to the OR on 11/13 after L knee aspiration was concerning for septic arthritis. While in the PACU she became hypotensive and tachycardic and she was given 3L of LR with phenylephrine with persistently low pressure, so was transferred to the ICU where her Cardizem and Metoprolol were put on hold. In the ICU she had episodes of rapid atrial fibrillation and responded well to an amiodarone bolus and drip which was then turned off. She was transferred to the floor on 11/17 and Cardizem was not restarted, but metoprolol was continued. In the first 3 days post-op, she required 4 total units of pRBCs, but her H/H has stayed stable since that time not requiring further transfusions. A wound vac was tried on the knee and poor wound healing was apparent over time. CT leg on 12/05 with findings as follows: comminuted, mildly displaced proximal left tibial fracture, moderate soft tissue gas adjacent to left knee which could be related to the open wound. However, a gas-forming infectious process could appear similar. Small left knee joint effusion. Small 2.2 x 0.9 cm rim enhancing fluid collection along the posterior aspect of the proximal left tibia. This is nonspecific in the postoperative setting but could reflect an abscess. Irregularity of the posterior cortex of the proximal left tibia. Given the clinical history, this is worrisome for osteomyelitis. It was decided to perform AKA, which was done on 12/12. Of note, she had been restarted on coumadin prior to this and was tolerating therapeutic levels. She became anemic with a fall in H/H to 6.6/20 on 12/14. She was transfused 1 unit of blood with appropriate response. Following this, however, she began vomiting for 36 hours or so. Had remained in sinus rhythm on telemetry. Zofan was scheduled with maintenance IVF started and she was transferred to the floor. She started tolerated PO 12/16. Likely dc in 1-2 days to rehab. SEPSIS with SEPTIC ARTHRITIS LEFT KNEE W/PROSTHETIC JOINT MRSA BACTEREMIA, S/P L AKA on 12/12 12/16: tolerating PO, will make Zofran PRN now and cont IVF until she is improved back to baseline-ok to go per Ortho 12/15: Pain managed but still vomiting and cannot tolerate PO. Starting IVF for maintenance and scheduled her Zofram. Uncertain trigger for this? Cont to monitor. 12/14: pain improved, initially tolerating food in the morning but then nautious and vomiting in the afternoon, anti-emetics given and she was better. Cont Dapto 12/13: Post-op Day 1, pain is better controlled today. Patient reports that wound is healing well on Ortho exam earlier. She is tolerating PO and has no other symptoms at this time. Telemetry reviewed and no significant events were seen. Will wait for Ortho OK to restart coumadin for atrial fibrillation/blood clot. -cont Dapto, ID following -PICC line in place - historically in this admission d/c to facility noted to be difficult due to cost of the Daptomycin discharge planning - case assistant aware NAUSEA AND VOMITING: resolved, plan as above. LEFT LOWER EXT DVT: s/p IVC filter placement, anticoagulation contraindicated with persistent anemia. Most of clot removed with surgery to L leg last week; for any residual clot the IVC filter is in place. ACUTE BLOOD LOSS ANEMIA - 12/16: stable, cont to minimize phlebotomy 12/15 good response to blood given yesterday--> appropriate rise in H/H 12/14: Hb dropped to 6.6 this morning. She received one unit with good response. IVF were stopped to prevent dillutional anemia. 12/13: patient has received four units of PRBCs during this admission and required another unit preop. She was noted to lose 400cc intraoperatively. FFP was given to better manage bleeding. H/H decreased 2 grams overnight. Pt is asymptomatic; transfusion not indicated at this time. Cont to monitor H/H in am. Cont holding coumadin until this stabilizes and is OK by Ortho. HTN --controlled -cont Lopressor after increase to 37.5mg PO BID on 12/01 -cont to hold diltiazem and scheduled antiemetics ATRIAL FIBRILLATION -sinus rhythm on exam, rate controlled ?long-term anticoagulation candidate, with anticoagulation currently contraindicated 2/2 transfusion-dependent anemia -cont Metoprolol/hold diltiazem DM2 -hold glipizide -can be resumed on discharge -insulin coverage -glycemic pharmacy consulted PRESSURE ULCERS Pressure ulcer of right medial buttock, stage 2, POA and Pressure ulcer of medial sacrum, stage 2, not POA -- Wound care following cont to turn her q2hrs -improved to <quarter size per nurse, cont Optifoam daily. DVT PROPHYLAXIS: contraindicated 2/2 transfusion-dependent anemia Dispo: likely 3-5 day recovery process prior to transfer to rehab. She is not vomiting now, and feeling better. Mg and K are still low, however, so would want her to have those stable prior to leaving. Anticipate medical clearance for discharge tomorrow or next day. Labs ordered for tomorrow morning. Thank you for this consultation. Jamia Nichols DO [facility] Hospitalist Current Inpatient Medications: Current Inpatient Medications Medications (Trade) Dose Ordered Sig/Denisse Route Start Time Stop Time Status Last Admin Dose Admin Daptomycin/Sodium Chloride (Cubicin IV/Nss 50ml) 62 ml @ 120 mls/hr Q24H IV 11/13/16 14:00 12/25/16 13:59 12/15/16 13:11 120 MLS/HR Miconazole Nitrate (Desenex Powder) 1 appln BID PRN EXT 11/16/16 17:00 12/16/16 16:59 12/16/16 11:54 1 APPLN Metoprolol Tartrate (Lopressor Tab) 37.5 mg BID PO 11/30/16 21:00 12/30/16 20:59 12/16/16 09:09 37.5 MG Collagenase (Santyl Oint) 1 appln UD EXT 12/01/16 13:00 12/31/16 12:59 Enteral Nutritional Formula 1 box 1 box BIDM PO 12/05/16 17:45 01/04/17 17:44 12/15/16 07:59 1 BOX Promethazine HCl/ Sodium Chloride (Phenergan Inj/ Nss 50ml) 50.5 ml @ 204 mls/hr Q6H PRN IV 12/07/16 15:00 01/06/17 14:59 12/12/16 20:48 204 MLS/HR Polyethylene (Miralax Powder Packet) 17 gm DAILY PO 12/09/16 09:00 01/08/17 08:59 12/16/16 09:06 17 GM Miscellaneous Information (Consult Glycemic Management Pharmacy) 1 ea UD PRN N/A 12/10/16 17:53 01/09/17 17:52 Oxycodone/ Acetaminophen (Percocet 5-325mg Tab) `1-2 TABS FOR PAIN `1 TAB... Q4H PRN PO 12/12/16 19:30 12/26/16 19:29 12/16/16 11:12 2 TAB Hydromorphone HCl (Dilaudid Inj) 1 mg Q3H PRN IV 12/12/16 19:30 12/26/16 19:29 12/12/16 19:57 1 MG Insulin Aspart (novoLOG ASPART) SLIDING SCALE ACHS SC 12/13/16 07:00 01/12/17 06:59 12/15/16 08:43 2 UNITS Ondansetron HCl 4 mg 4 mg Q6H IV. 12/15/16 20:00 01/14/17 19:59 12/16/16 09:03 4 MG Potassium Chloride/Sodium Chloride (Nss + 20meq KCl 1000ml) 1,000 ml @ 75 mls/hr [id number] IV 12/15/16 19:45 01/14/17 18:59 12/16/16 09:07 75 MLS/HR Insulin Glargine see protocol text HS SC 12/16/16 21:00 01/15/17 20:59 Magnesium Sulfate/ Sodium Chloride (Mag Sulfate 50% Inj/Nss 500ml) 508 ml @ 125 mls/hr Q4H4M IV 12/16/16 11:00 12/16/16 15:03 12/16/16 11:11 125 MLS/HR
[2016-12-16 15:22] VITALS: BP 153/79; PULSE 71; TEMP 36.8; O2SAT 94
[2016-12-16] MEDS: DAPTOmycin IV 600 MG in SODIUM CHLORIDE 0.9% 50ML 50 ML IV SCH (16:13)
[2016-12-16] MEDS: INSULIN GLARGINE SOLOSTAR 100 UNITS/ML 3 ML PEN SC SCH (20:51)
[2016-12-16 22:59] VITALS: BP 150/78; PULSE 83; TEMP 36.8; O2SAT 96
[2016-12-17] VITALS (7 sets, daily range): BP systolic 143–166; BP diastolic 62–91; PULSE 78–106; TEMP 36.5–36.9; O2SAT 95–97
[2016-12-17] MEDS: ONDANSETRON INJ 2 MG/ML 2 ML VIAL IV. SCH ×2 (02:22→08:05)
[2016-12-17] MEDS: OXYCODONE/ACETAMINOPHEN 5-325 TAB PO PRN ×5 (02:22→22:00)
[2016-12-17 06:19] LABS: BUN/CREATININE RATIO 25.9 (10-20); CALCIUM 7.5 mg/dl (8.5-10.1); CREATININE 0.32 mg/dl (0.60-1.20); MAGNESIUM 1.9 mg/dl (1.8-2.4); POTASSIUM 3.9 mmol/L (3.5-5.1)
[2016-12-17] MEDS: POLYETHYLENE (MIRALAX) 17 GM PACK PO SCH (07:55)
[2016-12-17] MEDS: ARGININE EXTRA NUTRITION DRINK 1 BOX PO SCH ×2 (07:56→17:07)
[2016-12-17] MEDS: METOPROLOL TARTRATE 25 MG TAB PO SCH ×2 (08:00→22:03)
[2016-12-17] MEDS: INSULIN ASPART 100 UNITS/ML 3 ML PEN SC SCH ×4 (09:02→21:58)
[2016-12-17] MEDS: NSS + 20MEQ KCL 1000ML 1,000 ML IV SCH (10:29)
--- NOTE | 2016-12-17 11:31 | Orthopedic Progress Note ---
Orthopedic Progress Note Date of Service December 17, 2016. Subjective Post OP Day: 5 Reports: feeling well, pain controlled w PO medications Additional Notes: States the pain in the left AKA site is controlled with medicines. She feels that the pain in the AKA is worse than what she had after the right BKA. Objective N/V intact, capillary refill less than 2 sec., incision C/D/I, A&O x3 Left AKA site is well approximated. Soft. No erythema. Only mild serosanguinous drainage from the central part of the flap where the most proximal aspect of the TKA surgical incision. Dressing applied with adaptic, gauze, kerlix and Jeremiah bandage. Date Time Temp Pulse Resp B/P Pulse Ox O2 Delivery O2 Flow Rate FiO2 12/17/16 08:00 96 Room Air 12/17/16 07:51 36.7 85 16 162/73 96 Room Air 12/16/16 23:45 Room Air 12/16/16 22:59 36.8 83 16 150/78 96 Room Air 12/16/16 16:00 Room Air 12/16/16 15:22 36.8 71 18 153/79 94 Room Air Assessment & Plan Assessment: POD#5 Left AKA AFib DM2 HTN Plan: AKA is doing well. Continue IV Dapto. Pain control. Patient likely transfer to [facility] when medically stable. If [facility] is set up and medicine feels the patient is stable, will be able to d/c either today or tomorrow. (1) Infection of total left knee replacement (2) MRSA (methicillin resistant Staphylococcus aureus) septicemia (3) Leukocytosis Inhouse Planning Pain Management: Percocet, PO Tylenol DVT Prophylaxis: other (IVC Filter) Discharge Planning Discharge Planning: rehab hospital ([facility] when medically stable. Possibly today or tomorrow.)
--- NOTE | 2016-12-17 13:35 | Pharmacy Progress Note ---
Glycemic: Assessment & Plan Date of Service December 17, 2016. Assessment & Plan Outpatient Anti-diabetic Regimen: * Glipizide ER 10mg qAM, Novolog QID per SS, Lantus 18 units BID * A1c = 7.7 % 10/20/16 ASSESSMENT: * ADA & AACE recommend a goal blood sugar range 140-180 mg/dl for the majority of critically ill & non-critically ill patients. However, more stringent targets may be selected in individual cases. 12/17/16: * No Lantus was given yesterday d/t changes made in response to decreased PO intake. Patient's PO intake appears to be increasing somewhat in the past 24 hours. * Will schedule a Lantus dose for this evening so that patient does not go without any basal insulin again. * Depending on fasting BSG tomorrow, will consider resuming BID Lantus dosing in the morning. Will work toward stabilizing Lantus dose again for less variance in insulin doses. from 12/14/16: * Pt POD # 2 s/p L AKA. * Significant drop in Hgb --> pt receiving blood transfusion. This will affect the validity of future A1c's drawn in the month or so. Date 12/12/16 12/13/16 12/14/16 Time 0700 1200 1600 2100 0700 1200 1600 2100 0700 Lantus Dose 9 13 5 9 10 BSG 147 (in OR) 313 257 94 82 209 166 206 NovoLog 1 (in OR) 12 8 6 0 10 2 10 * BSGs fluctuating up and down d/t low/high doses of Lantus & NovoLog given. Current glycemic control orders seem reactive instead of proactive and are causing BSG swings. Need to stabilize dosing of Lantus to stabilize BSGs and prevent large doses of NovoLog to be given. * POD#0, 12/12/16 PM: BSG elevated (BSG = 313mg/dl, 257mg/dl) most likely d/t stress from surgery, dextrose IVF, and possible steroids intraop? Steroids not documented as given on eMAR but difficult to determine what all is given intraoperatively. Pt received large NovoLog bolus doses per Novolog scale and increase Lantus dose 12/12/16 HS to combat hyperglycemia. * POD#1, 12/13/16 AM: AM fasting BSG below goal range @ 94mg/dl therefore reduced basal insulin dose given. AM remained below goal at lunch and patient did not get lunch CHO coverage. This lead to re-bound hyperglycemia at dinner. Normal basal insulin dose given at HS * POD#2, 12/14/16 AM: AM fasting BSG elevated at 206mg/dl. Most likely d/t basal deficiency from 12/13/16. Will not give increased dose (13 units) as this causes yo-yo BSGs. Will resume previous basal insulin dosing (stop dosing per scale as this is causing severe BSG swings). Bolus insulin will cover hyperglycemia. BSGs should stabilize in the next day or so as Lantus re- establishes steady state with required dosing (~ 18-20 units of basal/day) PLAN FOR INPATIENT GLYCEMIC CONTROL: * Lantus per BSG scale qHS only * BSG less than 110 mg/dl: 5 units * BSG 111 - 140 mg/dl: 10 units * Novolog ACHS * Continue correction factor of 20 mg/dl/unit * Continue carb ratio of 1 unit per 7 grams CHO consumed * Continue goal range to Low 110 mg/dL - High 140 mg/dL * Please note that the plan above was derived based on current level of insulin resistance and hospital stress. These recommendations are appropriate for inpatient admission only. Plan of care upon discharge will need to be reassessed to avoid potential outpatient hypo/hyperglycemia. Thank you.
[2016-12-17] MEDS: DAPTOmycin IV 500 MG in SODIUM CHLORIDE 0.9% 50ML 50 ML IV SCH (13:45)
[2016-12-17] MEDS ORDERED: ONDANSETRON INJ 2 MG/ML 2 ML VIAL IV. PRN (14:00)
--- NOTE | 2016-12-17 17:11 | Progress Note ---
Subjective Date of Service: December 17, 2016. Subjective Pt evaluation today including: conversation w/ patient, physical exam, lab review, review of studies, review of inpatient medication list Saw/examined the patient in room 352 She is doing well today; nausea improving, tolerated some of her diet Pain is controlled; had pain due to bandage being changed today Review of Systems Constitutional: No chills, No fever Respiratory: No shortness of breath Cardiac: No chest pain Abdomen: + nausea, No constipation, No diarrhea, No pain, No vomiting Musculoskeletal: + joint pain (pain controlled with medications) Heme: No abnormal bleeding/bruising Medications Current Inpatient Medications Medications (Trade) Dose Ordered Sig/Denisse Route Start Time Stop Time Status Last Admin Dose Admin Metoprolol Tartrate (Lopressor Tab) 37.5 mg BID PO 11/30/16 21:00 12/30/16 20:59 12/17/16 08:00 37.5 MG Collagenase (Santyl Oint) 1 appln UD EXT 12/01/16 13:00 12/31/16 12:59 Enteral Nutritional Formula 1 box 1 box BIDM PO 12/05/16 17:45 01/04/17 17:44 12/17/16 07:56 1 BOX Promethazine HCl/ Sodium Chloride (Phenergan Inj/ Nss 50ml) 50.5 ml @ 204 mls/hr Q6H PRN IV 12/07/16 15:00 01/06/17 14:59 12/12/16 20:48 204 MLS/HR Polyethylene (Miralax Powder Packet) 17 gm DAILY PO 12/09/16 09:00 01/08/17 08:59 12/17/16 07:55 17 GM Miscellaneous Information (Consult Glycemic Management Pharmacy) 1 ea UD PRN N/A 12/10/16 17:53 01/09/17 17:52 Oxycodone/ Acetaminophen (Percocet 5-325mg Tab) `1-2 TABS FOR PAIN `1 TAB... Q4H PRN PO 12/12/16 19:30 12/26/16 19:29 12/17/16 12:51 2 TAB Hydromorphone HCl (Dilaudid Inj) 1 mg Q3H PRN IV 12/12/16 19:30 12/26/16 19:29 12/12/16 19:57 1 MG Insulin Aspart SLIDING SCALE ACHS SC 12/13/16 07:00 01/12/17 06:59 12/17/16 12:55 5 UNITS Potassium Chloride/Sodium Chloride (Nss + 20meq KCl 1000ml) 1,000 ml @ 75 mls/hr [id number] IV 12/15/16 19:45 01/14/17 18:59 12/17/16 10:29 75 MLS/HR Insulin Glargine see protocol text HS SC 12/16/16 21:00 01/15/17 20:59 Daptomycin/Sodium Chloride (Cubicin IV/Nss 50ml) 60 ml @ 120 mls/hr Q24H IV 12/17/16 14:00 12/25/16 13:59 12/17/16 13:45 120 MLS/HR Ondansetron HCl (Zofran Inj) 4 mg Q6H PRN IV. 12/17/16 14:00 01/16/17 13:59 Objective Vital Signs Date Time Temp Pulse Resp B/P Pulse Ox O2 Delivery O2 Flow Rate FiO2 12/17/16 16:51 36.5 98 16 143/64 96 Nasal Cannula 2.0 12/17/16 15:31 36.6 78 16 164/85 95 Room Air 12/17/16 08:00 96 Room Air 12/17/16 07:51 36.7 85 16 162/73 96 Room Air 12/16/16 23:45 Room Air 12/16/16 22:59 36.8 83 16 150/78 96 Room Air Physical Exam General Appearance: no apparent distress Respiratory/Chest: no respiratory distress, no accessory muscle use Cardiovascular: regular rate, rhythm, no edema, no murmur Abdomen: normal bowel sounds, non tender, soft Extremities: + pertinent finding (R BKA, L AKA, dressed) Neurologic/Psychiatric: no motor/sensory deficits, alert, normal mood/affect Laboratory Results Last 24 Hours Test 12/16/16 17:21 12/16/16 20:47 12/17/16 05:20 12/17/16 07:47 Bedside Glucose 136 mg/dl 86 mg/dl 158 mg/dl Sodium Level 136 mmol/L Potassium Level 3.9 mmol/L Chloride Level 103 mmol/L Carbon Dioxide Level 29 mmol/L Anion Gap 4.0 mmol/L Blood Urea Nitrogen 8 mg/dl Creatinine 0.32 mg/dl Est Creatinine Clear Calc Drug Dose 182.6 ml/min Estimated GFR () 134.4 Estimated GFR (Non- 116.0 BUN/Creatinine Ratio 25.9 Random Glucose 147 mg/dl Calcium Level 7.5 mg/dl Magnesium Level 1.9 mg/dl Assessment and Plan SEPSIS with SEPTIC ARTHRITIS LEFT KNEE MRSA BACTEREMIA 12/17 patient is doing well, s/p L AKA, R BKA pain controlled with medications; pain worsened during dressing changes nausea is improved plan is to discharge to [facility] - I agree with this, d/c for 12/18 s/p I&D and removal of implants with insertion of antibiotic spacer on 11/14 POD # 12 on wound vac -changed today by Dr Ma form continuous irrigation mode to traditional wound vac setting w will need continued follow up at wound care clinic for wound care and wound vac management Synovial fluid culture growth MRSA Blood culture -staph aureus /MRSA recent blood cultures on 11/14/16 - no growth to date appreciate ID eval Recommend to Continue daptomycin for 6 weeks will need weekly CBC ,CMP , ESR , CPK check while on daptomycin . Will need continued ID follow up on discharge ECHO : no valvular vegetation noted PICC line placed will need arrangements for IV Daptomycin at SNF for 6 weeks updated by CM placement in SNF is difficult as IV Daptomycin being very expensive pt is allergic to Vancomycin D/w ID no effective option is available to adequately treat MRSA Sepsis / septic knee Case management updated LEFT LOWER EXT DVT s/p IVC filter no Coumadin on discharge ACUTE BLOOD LOSS ANEMIA - s/p 4 units PRBCs 12/06 patient has received four units of PRBCs during this admission her H/H remains stable and no need for further transfusion at this time monitor H/H 12/02 H/H stable 11/29 Hgb up to 8.6 will monitor and transfuse if < 7 or if symptomatic 11/28 Hgb is trending down to 8.1 Wound vac still draining blood s/p debridement on 11/28 now on Coumadin monitor H/H and INR may need to stop Coumadin and go back to aspirin -s/p transfused 4units PRBC's -Hgb stable follow CBC daily as pt is started on Coumadin HTN 12/06 blood pressures better controlled with metoprolol 37.5mg BID may need to increase it to 50mg BID if blood pressures continue to fluctuate 12/02 blood pressure improved, continue to give metoprolol 37.5mg BID 12/01 blood pressure had been elevated metoprolol increased to 37.5mg BID 11/28 blood pressure labile, as it keeps trending upwards monitor and we may need to adjust the dose of medications LOW URINE OUT PUT 12/06 patient has low urine output, likely due to decreased PO intake/nausea patient looks dehydrated IVFs restarted, monitor ATRIAL FIBRILLATION cont on Beta jodie DM2 -hold glipizide -can be resumed on discharge -insulin coverage -glycemic pharmacy consulted PRESSURE ULCERS Pressure ulcer of right medial buttock, stage 2, POA and Pressure ulcer of medial sacrum, stage 2, not POA -- Wound care consulted DVT PROPHYLAXIS: aspirin BID per Ortho DISPOSITION ; per Ortho will need SNF for continued PT/wound care /IV Abx Awaiting acceptance
[2016-12-17] MEDS: INSULIN GLARGINE SOLOSTAR 100 UNITS/ML 3 ML PEN SC SCH (22:11)
[2016-12-18] MEDS: NSS + 20MEQ KCL 1000ML 1,000 ML IV SCH ×2 (00:10→13:01)
[2016-12-18] MEDS: OXYCODONE/ACETAMINOPHEN 5-325 TAB PO PRN ×3 (04:57→13:28)
[2016-12-18 06:10] LABS: HEMATOCRIT 24.6 % (37-47); MEAN CELL VOLUME 90.4 fL (80-100); MEAN CORPUSCULAR HEMOGLOBIN 28.7 pg (25-34); MEAN CORPUSCULAR HGB CONC 31.7 g/dl (32-36); MEAN PLATELET VOLUME 8.3 fL (7.4-10.4); PLATELET COUNT 759 K/uL (130-400); RED BLOOD COUNT 2.72 M/uL (4.2-5.4); WHITE BLOOD COUNT 10.96 K/uL (4.8-10.8)
[2016-12-18 06:45] LABS: BLOOD UREA NITROGEN 6 mg/dl (7-18); BUN/CREATININE RATIO 27.3 (10-20); CARBON DIOXIDE 26 mmol/L (21-32); CHLORIDE 101 mmol/L (98-107); CREATININE 0.22 mg/dl (0.60-1.20); GLUCOSE 117 mg/dl (70-99); POTASSIUM 3.8 mmol/L (3.5-5.1); SODIUM 135 mmol/L (136-145)
[2016-12-18 06:57] LABS: CALCIUM 7.7 mg/dl (8.5-10.1)
[2016-12-18 08:03] VITALS: BP 172/83; PULSE 82; TEMP 36.7; O2SAT 96
[2016-12-18] MEDS: ARGININE EXTRA NUTRITION DRINK 1 BOX PO SCH (08:30)
[2016-12-18] MEDS: METOPROLOL TARTRATE 25 MG TAB PO SCH (08:43)
[2016-12-18] MEDS: POLYETHYLENE (MIRALAX) 17 GM PACK PO SCH (08:44)
[2016-12-18] MEDS: INSULIN ASPART 100 UNITS/ML 3 ML PEN SC SCH ×2 (08:58→13:24)
--- NOTE | 2016-12-18 11:11 | Progress Note ---
Subjective Date of Service: December 18, 2016. Subjective Pt evaluation today including: conversation w/ patient, physical exam, lab review, review of studies, review of inpatient medication list Saw/examined the patient in room 352 continues to have nausea + vomiting pain is worsened at the L LE stump Review of Systems Constitutional: No chills, No fever Respiratory: No shortness of breath Cardiac: No chest pain Abdomen: + nausea, + vomiting, No diarrhea, No pain Musculoskeletal: + joint pain (b/l LE stumps) Heme: No abnormal bleeding/bruising Medications Current Inpatient Medications Medications (Trade) Dose Ordered Sig/Denisse Route Start Time Stop Time Status Last Admin Dose Admin Metoprolol Tartrate (Lopressor Tab) 37.5 mg BID PO 11/30/16 21:00 12/30/16 20:59 12/18/16 08:43 37.5 MG Collagenase (Santyl Oint) 1 appln UD EXT 12/01/16 13:00 12/31/16 12:59 Enteral Nutritional Formula 1 box 1 box BIDM PO 12/05/16 17:45 01/04/17 17:44 12/17/16 07:56 1 BOX Promethazine HCl/ Sodium Chloride (Phenergan Inj/ Nss 50ml) 50.5 ml @ 204 mls/hr Q6H PRN IV 12/07/16 15:00 01/06/17 14:59 12/12/16 20:48 204 MLS/HR Polyethylene (Miralax Powder Packet) 17 gm DAILY PO 12/09/16 09:00 01/08/17 08:59 12/18/16 08:44 17 GM Miscellaneous Information (Consult Glycemic Management Pharmacy) 1 ea UD PRN N/A 12/10/16 17:53 01/09/17 17:52 Oxycodone/ Acetaminophen (Percocet 5-325mg Tab) `1-2 TABS FOR PAIN `1 TAB... Q4H PRN PO 12/12/16 19:30 12/26/16 19:29 12/18/16 09:25 2 TAB Hydromorphone HCl (Dilaudid Inj) 1 mg Q3H PRN IV 12/12/16 19:30 12/26/16 19:29 12/12/16 19:57 1 MG Insulin Aspart SLIDING SCALE ACHS SC 12/13/16 07:00 01/12/17 06:59 12/18/16 08:58 2 UNITS Potassium Chloride/Sodium Chloride (Nss + 20meq KCl 1000ml) 1,000 ml @ 75 mls/hr [id number] IV 12/15/16 19:45 01/14/17 18:59 12/18/16 00:10 75 MLS/HR Insulin Glargine see protocol text HS SC 12/16/16 21:00 01/15/17 20:59 12/17/16 22:11 10 UNIT Daptomycin/Sodium Chloride (Cubicin IV/Nss 50ml) 60 ml @ 120 mls/hr Q24H IV 12/17/16 14:00 12/25/16 13:59 12/17/16 13:45 120 MLS/HR Ondansetron HCl (Zofran Inj) 4 mg Q6H PRN IV. 12/17/16 14:00 01/16/17 13:59 12/18/16 09:24 4 MG Objective Vital Signs Date Time Temp Pulse Resp B/P Pulse Ox O2 Delivery O2 Flow Rate FiO2 12/18/16 08:03 36.7 82 16 172/83 96 Room Air 12/18/16 08:00 Room Air 12/17/16 23:45 Room Air 12/17/16 23:08 36.9 84 14 150/62 97 Room Air 12/17/16 21:55 106 166/91 12/17/16 16:51 36.5 98 16 143/64 96 Nasal Cannula 2.0 12/17/16 16:30 96 Room Air 12/17/16 15:31 36.6 78 16 164/85 95 Room Air Physical Exam General Appearance: + mild distress (secondray to nausea) Respiratory/Chest: lungs clear, normal breath sounds, no respiratory distress, no accessory muscle use Cardiovascular: regular rate, rhythm, no edema, no murmur Abdomen: normal bowel sounds, non tender, soft Extremities: + pertinent finding (R BKA, L AKA, site is dressed/wrapped) Laboratory Results Last 24 Hours Test 12/17/16 12:31 12/17/16 16:51 12/17/16 20:37 12/18/16 05:45 Bedside Glucose 184 mg/dl 139 mg/dl 192 mg/dl White Blood Count 10.96 K/uL Red Blood Count 2.72 M/uL Hemoglobin 7.8 g/dL Hematocrit 24.6 % Mean Corpuscular Volume 90.4 fL Mean Corpuscular Hemoglobin 28.7 pg Mean Corpuscular Hemoglobin Concent 31.7 g/dl RDW Standard Deviation 50.6 fL RDW Coefficient of Variation 15.4 % Platelet Count 759 K/uL Mean Platelet Volume 8.3 fL Sodium Level 135 mmol/L Potassium Level 3.8 mmol/L Chloride Level 101 mmol/L Carbon Dioxide Level 26 mmol/L Anion Gap 8.0 mmol/L Blood Urea Nitrogen 6 mg/dl Creatinine 0.22 mg/dl Est Creatinine Clear Calc Drug Dose 265.6 ml/min Estimated GFR () > 150.0 Estimated GFR (Non- 131.2 BUN/Creatinine Ratio 27.3 Random Glucose 117 mg/dl Calcium Level 7.7 mg/dl Test 12/18/16 08:00 Bedside Glucose 132 mg/dl Assessment and Plan SEPSIS with SEPTIC ARTHRITIS LEFT KNEE MRSA BACTEREMIA 12/18 nausea/vomiting persists today unfortunately, this is an ongoing issue likely due to pain as well as antibiotic use if d/c'd to [facility] today, would d/c with SL Zofran, and Phenergan - may consider scopolamine patch for the nausea; though improved pain control will more likely help continue Dapto as per ID, keep PICC line in d/c with Cheng catheter 12/17 patient is doing well, s/p L AKA, R BKA pain controlled with medications; pain worsened during dressing changes nausea is improved plan is to discharge to [facility] - I agree with this, d/c for 12/18 s/p I&D and removal of implants with insertion of antibiotic spacer on 11/14 POD # 12 on wound vac -changed today by Dr Ma form continuous irrigation mode to traditional wound vac setting w will need continued follow up at wound care clinic for wound care and wound vac management Synovial fluid culture growth MRSA Blood culture -staph aureus /MRSA recent blood cultures on 11/14/16 - no growth to date appreciate ID eval Recommend to Continue daptomycin for 6 weeks will need weekly CBC ,CMP , ESR , CPK check while on daptomycin . Will need continued ID follow up on discharge ECHO : no valvular vegetation noted PICC line placed will need arrangements for IV Daptomycin at [facility] for 6 weeks updated by CM placement in SNF is difficult as IV Daptomycin being very expensive pt is allergic to Vancomycin D/w ID no effective option is available to adequately treat MRSA Sepsis / septic knee Case management updated LEFT LOWER EXT DVT s/p IVC filter no Coumadin on discharge ACUTE BLOOD LOSS ANEMIA - s/p 4 units PRBCs 12/06 patient has received four units of PRBCs during this admission her H/H remains stable and no need for further transfusion at this time monitor H/H 12/02 H/H stable 11/29 Hgb up to 8.6 will monitor and transfuse if < 7 or if symptomatic 11/28 Hgb is trending down to 8.1 Wound vac still draining blood s/p debridement on 11/28 now on Coumadin monitor H/H and INR may need to stop Coumadin and go back to aspirin -s/p transfused 4units PRBC's -Hgb stable follow CBC daily as pt is started on Coumadin HTN 12/06 blood pressures better controlled with metoprolol 37.5mg BID may need to increase it to 50mg BID if blood pressures continue to fluctuate 12/02 blood pressure improved, continue to give metoprolol 37.5mg BID 12/01 blood pressure had been elevated metoprolol increased to 37.5mg BID 11/28 blood pressure labile, as it keeps trending upwards monitor and we may need to adjust the dose of medications LOW URINE OUT PUT 12/06 patient has low urine output, likely due to decreased PO intake/nausea patient looks dehydrated IVFs restarted, monitor ATRIAL FIBRILLATION cont on Beta jodie DM2 -hold glipizide -can be resumed on discharge -insulin coverage -glycemic pharmacy consulted PRESSURE ULCERS Pressure ulcer of right medial buttock, stage 2, POA and Pressure ulcer of medial sacrum, stage 2, not POA -- Wound care consulted DVT PROPHYLAXIS: aspirin BID per Ortho DISPOSITION ; per Ortho will need SNF for continued PT/wound care /IV Abx Awaiting acceptance
--- NOTE | 2016-12-18 13:02 | Discharge Instructions ---
Discharge Instructions Date of Service December 18, 2016. Admission Reason for Admission: Infected Total Knee Discharge Discharge Diagnosis / Problem: infected left total knee, peripheral vascular disease Discharge Goals Goal(s): Decrease discomfort, Increase independence, Improve disease control Activity Recommendations Activity Level: Up Ad Blanche Therapies: Weight Bearing Status (Nonweightbearing bilateral lower extremities) , Occupational Therapy Shower/Bathe: keep incision dry . Additional Information Patient informed of condition: Yes Advance Directives: Yes DNR: No Level of Care: Acute Rehab Communicable Disease: Yes Prognosis: Stable Cheng Catheter: Yes Instructions / Follow-Up Instructions / Follow-Up Schedule follow up with Dr. Car's office in 10-14 days for wound check. Please call for a follow up at [phone]. Current Hospital Diet Patient's current hospital diet: Diabetes Type 2 Diet, Low Sodium Diet (2gm Na) Discharge Diet Recommended Diet: Low Sodium Diet (2gm Na), Diabetes Type 2 Diet Procedures Procedures Performed: Left Above Knee Amputation, Removal of hardware left lower extremity Pending Studies Studies pending at discharge: no Physician Orders On Transfer Dressing Changes: Change dressing to left AKA site every other day. Adaptic cut to the size of the incision, gauze, kerlix, RASHAAD wrap Laboratory Results Hemoglobin A1c Test 10/20/16 05:45 Range/Units Estimated Average Glucose 174 mg/dl Hemoglobin A1c 7.7 H 4.5-5.6 % Medical Emergencies . Who to Call and When: Medical Emergencies: If at any time you feel your situation is an emergency, please call 911 immediately. . Non-Emergent Contact Non-Emergency issues call your: Surgeon Call Non-Emergent contact if: temperature is above 101, your pain is worsening , wound has increased drainage, wound has increased redness . . "Provider Documentation" section prepared by Christ Newton. . Core Measure Problem Core Measures: None
--- NOTE | 2016-12-18 13:04 | Orthopedic Progress Note ---
Orthopedic Progress Note Date of Service December 18, 2016. Subjective Post OP Day: 6 Reports: feeling well, pain controlled w PO medications (Most pain is in the left upper leg toward the hip vs. the surgical site.) Objective N/V intact, dressing C/D/I, A&O x3 Date Time Temp Pulse Resp B/P Pulse Ox O2 Delivery O2 Flow Rate FiO2 12/18/16 08:03 36.7 82 16 172/83 96 Room Air 12/18/16 08:00 Room Air 12/17/16 23:45 Room Air 12/17/16 23:08 36.9 84 14 150/62 97 Room Air 12/17/16 21:55 106 166/91 12/17/16 16:51 36.5 98 16 143/64 96 Nasal Cannula 2.0 12/17/16 16:30 96 Room Air 12/17/16 15:31 36.6 78 16 164/85 95 Room Air Laboratory Results 24 Hours: Test 12/18/16 05:45 Hematocrit 24.6 % Hemoglobin 7.8 g/dL Assessment & Plan Assessment: POD#6 Left AKA AFib DM2 HTN Plan: AKA is doing well. Continue IV Dapto. Pain control. Plan for d/c to [facility] today. (1) Infection of total left knee replacement (2) MRSA (methicillin resistant Staphylococcus aureus) septicemia (3) Leukocytosis Inhouse Planning Pain Management: Percocet, PO Tylenol DVT Prophylaxis: other Discharge Planning Discharge Planning: rehab hospital
[2016-12-18] MEDS: PROMETHAZINE HCL INJ 12.5 MG in SODIUM CHLORIDE 0.9% 50ML 50 ML IV PRN (13:26)
[2016-12-18] MEDS: DAPTOmycin IV 500 MG in SODIUM CHLORIDE 0.9% 50ML 50 ML IV SCH (13:28)
[2016-12-18 14:05] VITALS: BP 172/83; PULSE 82; TEMP 36.7; O2SAT 96
--- NOTE | 2016-12-24 09:20 | Discharge Summary ---
Orthopedic Discharge Summary Admission Date/Reason Nov 13, 2016 at 12:51 Infected Total Knee. Discharge Date/Disposition December 18, 2016 Rehab Diagnosis Principal Diagnosis: Infected left total knee Secondary Diagnoses/Problems: sepsis peripheral vascular disease nonhealing surgical wound Procedure(s) Performed Left AKA Left knee I & D with explant of TKA and implant of antibiotic spacer Consultations Medicine Infectious Disease Wound clinic Pharmacy Plastic surgery Medication Reconciliation New Medications: Aspirin (Aspirin EC Low Dose) 81 Mg Ectab 81 MG PO BID for 30 Days Ferrous Gluconate (Ferrous Gluconate) 324 Mg Tab 324 MG PO TIDM for 30 Days, TAB Oxycodone HCl (Oxycodone HCl) 5 Mg Tab 5-10 MG PO Q4H PRN for Pain, #30 TAB Tramadol HCl (Tramadol HCl) 50 Mg Tab 50 MG PO Q4H PRN for Pain, #30 TAB Continued Medications: Acetaminophen (Tylenol) 325 Mg Tab 650 MG PO Q4H PRN for fever/pain for 10 Days, #80 TAB Cholecalciferol (Vitamin D3) 1,000 Unit Cap PO DAILY Daptomycin (Cubicin) 500 Mg Kelly 600 MG IV DAILY for 42 Days (This prescription has been renewed) Diltiazem Hcl Coated Beads (Cardizem Cd) 240 Mg Cap 1 CAP PO DAILY for 30 Days, #30 CAP 5 Refills Docusate Sodium (Colace) 100 Mg Cap 1 CAP PO BID for 15 Days, #30 CAP Famotidine (Pepcid) 20 Mg Tab 20 MG PO, TAB Folic Acid (Folvite) 1 Mg Tab 1 TAB PO DAILY for 90 Days, #90 TAB 1 Refill Glipizide Xl (Glucotrol Xl) 10 Mg Tab 10 MG PO QAM, TAB Insulin Aspart (Novolog) 100 Units/Ml Inj SQ QID Insulin Glargine (Lantus) 100 Unit/Ml Inj 18 SC BID, VIAL Metoprolol Tartrate (Lopressor) 25 Mg Tab 25 MG PO BID for 10 Days, #20 TAB Ondansetron Odt (Zofran Odt) 8 Mg Soltab 4 MG SL Q4H PRN for Nausea, TAB Discontinued Medications: Enoxaparin (Enoxaparin Sodium) 40 Mg/0.4 Ml Inj 40 MG SQ QAM for 14 Days Tramadol HCl (Tramadol HCl) 50 Mg Tab 50-100 MG PO Q4H PRN for Pain, #60 TAB Admission Physical Exam As per Admitting History & Physical. Hospital Course (1) Infection of total left knee replacement (2) MRSA (methicillin resistant Staphylococcus aureus) septicemia (3) Leukocytosis The patient was admitted for a left TKA after wound dehiscence noted from a left knee I & D and poly exchange. The had also previously undergone a left BKA. Throughout the stay after the explant procedure and implantation of antibiotic spacer, the surgical wound failed to heal and ulcerations started. She had been treated conservatively while also managing her sepsis and other medical diagnoses. The decision was made to perform a left AKA which was done on 12.12.16. Pain control was the goal after the AKA with QOD dressing changes. When she was medically stable, she was d/c'd to [facility]. Discharge Instructions Please refer to the electronic Patient Visit Report (Discharge Instructions) for additional information.
--- NOTE | 2016-12-29 12:29 | Medical Consult ---
Consultation Note Date of Service December 29, 2016. Consultation Note Patient was seen in consult from recent admission, filter already placed and no changes in leg arterial supply. Medicine was supposed to cancel the consults as questions were answered recently.
[2017-01-22] MEDS ORDERED: SENN-65 PO (09:48)
[2017-01-22] MEDS ORDERED: HYDR-5688 PO (09:48)
[2017-01-22] MEDS ORDERED: CHOL1000 PO (09:48)
[2017-01-22] MEDS ORDERED: MULT-513 PO (09:48)
[2017-01-22] MEDS ORDERED: MECL1TAB42 PO (09:48)
[2017-01-22] MEDS ORDERED: GABA-112 PO (09:48)
[2017-01-22] MEDS ORDERED: DOCU-94 PO (09:48)
[2017-01-22] MEDS ORDERED: POLY335019 PO (09:48)
[2017-02-16] MEDS ORDERED: DOXY100C76 PO (14:56)
[2017-03-03] MEDS ORDERED: DIPH25CA65 PO (08:52)
[2017-03-03] MEDS ORDERED: DPRSCR15 TOP (08:53)
[2017-03-03] MEDS ORDERED: BISA10SU38 PR (08:56)
[2017-03-03] MEDS ORDERED: SODI1ENE RE (08:58)
[2017-03-03] MEDS ORDERED: GLGKIT IM (08:59)
[2017-03-03] MEDS ORDERED: DEXT40GE PO (09:00)
[2017-03-03] MEDS ORDERED: MOMLX PO (09:02)
[2017-03-03] MEDS ORDERED: POLY335019 PO (09:03)
[2017-03-03] MEDS ORDERED: NYST1POW7 TOP (09:04)
== END 2016-12-18 16:05 | DRG 463 ==
LOC: ENRESERVDT → ENRESERVTM → C.MSN 12:51 → C.MSICU 11-14 14:33 → C.2T 11-16 17:50 → C.MSN 11-22 11:25 → C.2T 12-12 13:45 → C.MSW 12-15 20:49
PROVIDERS: ADMIT Orthopaedic Surgery; ATTEND Orthopaedic Surgery
PROC: 05HM33Z Insertion of Infusion Device into Right Internal Jugular Vein, Percutaneous Approach (ICD-10-PCS; 2016-11-14)
PROC: 02HV33Z Insertion of Infusion Device into Superior Vena Cava, Percutaneous Approach (ICD-10-PCS; 2016-11-22)
PROC: 0SHD08Z Insertion of Spacer into Left Knee Joint, Open Approach (ICD-10-PCS; 2016-11-23)
PROC: 0SPD0JZ Removal of Synthetic Substitute from Left Knee Joint, Open Approach (ICD-10-PCS; 2016-11-23)
PROC: 0HDLXZZ Extraction of Left Lower Leg Skin, External Approach (ICD-10-PCS; 2016-11-28)
PROC: 0SPD08Z Removal of Spacer from Left Knee Joint, Open Approach (ICD-10-PCS; principal; 2016-12-11)
PROC: 0Y6D0Z3 Detachment at Left Upper Leg, Low, Open Approach (ICD-10-PCS; principal; 2016-12-11)
DX: T84.54XA Infection and inflammatory reaction due to internal left knee prosthesis, initial encounter (principal); R65.21 Severe sepsis with septic shock; A41.02 Sepsis due to Methicillin resistant Staphylococcus aureus; E87.2 Acidosis; N39.0 Urinary tract infection, site not specified; D62 Acute posthemorrhagic anemia; T81.30XA Disruption of wound, unspecified, initial encounter; I82.402 Acute embolism and thrombosis of unspecified deep veins of left lower extremity; N17.9 Acute kidney failure, unspecified; Y83.1 Surgical operation with implant of artificial internal device as the cause of abnormal reaction of the patient, or of later complication, without mention of misadventure at the time of the procedure; E11.51 Type 2 diabetes mellitus with diabetic peripheral angiopathy without gangrene; I10 Essential (primary) hypertension; K21.9 Gastro-esophageal reflux disease without esophagitis; E78.5 Hyperlipidemia, unspecified; I48.0 Paroxysmal atrial fibrillation; L89.312 Pressure ulcer of right buttock, stage 2; L89.152 Pressure ulcer of sacral region, stage 2; K59.00 Constipation, unspecified; Z79.899 Other long term (current) drug therapy; Z79.4 Long term (current) use of insulin; Z88.8 Allergy status to other drugs, medicaments and biological substances; Z89.511 Acquired absence of right leg below knee; R34 Anuria and oliguria

== ENCOUNTER → 2017-01-03 | Outpatient (CLI) | payer OTHER ==
[~2017-01-03] MED LIST changes: +ACET-1311 PO; +ASPEC81 PO; +BISA10SU38 PR; +CAL PO; +CHOL1000 PO; +DEXT40GE PO; +DIPH25CA65 PO; +DOXY100C76 PO; +DPRSCR15 TOP; +FERR325T18 PO; +FRRG PO; +GABA-112 PO; +GLGKIT IM; +HYDR-5688 PO; -LVNIS40 SQ; +MECL1TAB42 PO; +MOMLX PO; +MULT-513 PO; +NYST1POW7 TOP; +POLY335019 PO; +RXC5 PO; +SENN-65 PO; +SODI1ENE RE; +SULF800T23 PO; +TRAM-10 PO; +[UNRECOGNIZED DRUG - OTHER] INJ; +[UNRECOGNIZED DRUG - OTHER] PO
[2017-01-03 05:35] LABS: BLOOD UREA NITROGEN 9 mg/dl (7-18); CREATININE 0.51 mg/dl (0.60-1.20)
--- NOTE | 2017-01-16 10:28 | CODING QUERY NO DIAGNOSIS ---
TREATMENT RENDERED WITHOUT A DIAGNOSIS : 1950 To promote full compliance with coding requirements relating to patient care, physician participation is requested in all cases of cold type composing machine operator uncertainty. Please assist us with providing a diagnosis/symptom for the test(s) below: A diagnosis/symptom was not documented on your Order. A valid diagnosis/symptom is required to bill all insurances. Please remember that we are unable to code a diagnosis of rule out, probable, possible, questionable, or suspected. Tests that require a diagnosis: DOS: 01/03/17 * BLOOD UREA NITROGEN DIAGNOSIS: * CREATININE DIAGNOSIS: Provider Signature: Date: Thank you Sonja Whalen Health Information Management Once completed, please kindly fax back to [phone] For questions please call [phone]
== END ==
LOC: C.LABUPNIT 08:37
PROVIDERS: ATTEND Family Medicine
DX: N18.9 Chronic kidney disease, unspecified (principal)

== ENCOUNTER 2017-01-28 11:52 | Emergency (ER) | payer OTHER ==
[~2017-01-28] VITALS: Ht 160 cm; Wt 81.0 kg
[~2017-01-28 11:52] MED LIST changes: -ACET-1311 PO; -BISA10SU38 PR; -CAL PO; -CBCI IV; -DEXT40GE PO; -DIPH25CA65 PO; -DOXY100C76 PO; -DPRSCR15 TOP; -FERR325T18 PO; -GLGKIT IM; -MOMLX PO; -NYST1POW7 TOP; -SODI1ENE RE; -SULF800T23 PO; -TRAM-10 PO; -[UNRECOGNIZED DRUG - OTHER] INJ; -[UNRECOGNIZED DRUG - OTHER] PO
[2017-01-28] MEDS ORDERED: SODIUM CHLORIDE 0.9% 1000ML 1,000 ML IV STA (11:58)
[2017-01-28 12:05] VITALS: TEMP 36.4; O2SAT 98; Ht 160 cm; Wt 81.0 kg
--- NOTE | 2017-01-28 12:12 | EMERGENCY ROOM VISIT NOTE ---
History Report prepared by Anita: Kaylan Morrow Under the Supervision of: Dr. Eleazar Farmer M.D. First contact with patient: 11:55 Chief Complaint: SYNCOPE Stated Complaint: SYNCOPE History of Present Illness The patient is a 66 year old female who presents to the Emergency Room with complaints of an episode of syncope occurring [employer]. She was on her way to the wound care clinic to have her wound dressing changed this morning when she had a syncopal episode in her wheelchair. She did not fall out of the chair. She denies any injury occurring. The patient had one episode of vomiting after the episode. Currently she has no complaints. 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 A total of 10 systems reviewed and were otherwise negative. Past Medical & Surgical Medical Problems: (1) Atrial fibrillation (2) DM2 (diabetes mellitus, type 2) (3) DVT (deep vein thrombosis) in (4) GERD (gastroesophageal reflux disease) (5) HTN (hypertension) (6) Hx of right BKA (7) Infection of total left knee replacement (8) Leukocytosis (9) MRSA (methicillin resistant Staphylococcus aureus) septicemia (10) Septic arthritis of knee, left Surgical Problems: (1) History of total knee arthroplasty (2) S/P IVC filter Family History No pertinent family history Social History Smoking Status: Never Smoker Drug Use: none Marital Status: single Occupation Status: disabled Current/Historical Medications Scheduled Aspirin (Aspirin EC Low Dose), 81 MG PO BID Cholecalciferol (Vitamin D3), 1,000 UNITS PO DAILY Diltiazem Hcl Coated Beads (Cardizem Cd), 1 CAP PO DAILY Docusate Sodium (Colace), 1 CAP PO BID Famotidine (Pepcid), 20 MG PO DAILY Ferrous Gluconate (Ferrous Gluconate), 324 MG PO BID Folic Acid (Folvite), 1 TAB PO DAILY Gabapentin (Neurontin), 100 MG PO TID Glipizide Xl (Glucotrol Xl), 10 MG PO QAM Insulin Glargine (Lantus), 12 UNITS SC Q12H Meclizine Hcl (Meclizine Hcl), 1 TAB PO TID Metoprolol Tartrate (Lopressor), 25 MG PO BID Multivitamins/Minerals (Mvi With Minerals), 1 TAB PO DAILY Polyethylene Glycol 3350 (Miralax), 17 GM PO DAILY Senna/Docusate Sod (Senokot S), 1 TAB PO DAILY Sulfa/Trimethoprim (Bactrim Ds 800MG/160MG), 1 TAB PO BID [2 Tong/Cc Supplement], 60 ML PO QID [Mantoux], 0.1 ML INJ UD Scheduled PRN Acetaminophen (Tylenol), 650 MG PO Q6 PRN for Pain or Fever Hydrocodone/Acetaminophen 5MG/325MG (Moville 5MG/325MG), 1 TABLET PO Q6 PRN for Pain Ondansetron Odt (Zofran Odt), 4 MG SL Q4H PRN for Nausea Tramadol (Ultram), 50 MG PO Q4H PRN for Pain Allergies Coded Allergies: RASHAAD Inhibitors (Verified Allergy, Unknown, ?, 01/28/17) unknown reaction Atorvastatin (Verified Allergy, Unknown, ?, 01/28/17) unknown reaction Ertapenem (Verified Allergy, Unknown, ?, 01/28/17) unknown reaction Piperacillin (Verified Allergy, Unknown, rash, 01/28/17) Saxagliptin (Verified Allergy, Unknown, ?, 01/28/17) unknown reaction Simvastatin (Verified Allergy, Unknown, ?, 01/28/17) unknown reaction Tazobactam (Verified Allergy, Unknown, rash, 01/28/17) Vancomycin (Verified Allergy, Unknown, rash, 01/28/17) Physical Exam Vital Signs Date Time Temp Pulse Resp B/P (MAP) Pulse Ox O2 Delivery O2 Flow Rate FiO2 01/28/17 16:21 70 16 117/69 97 Room Air 01/28/17 15:35 69 16 134/71 96 Room Air 01/28/17 13:58 65 18 122/66 96 Room Air 01/28/17 12:27 65 01/28/17 12:05 36.4 68 16 123/72 98 Room Air 01/28/17 12:05 98 Room Air Physical Exam GENERAL: Patient is a healthy-appearing well-nourished older female. HEAD: Normocephalic atraumatic EYES: Ocular movements intact pupils equal and react to light OROPHARYNX mucous membranes are moist no exudates present no erythema or edema present NECK: Supple no nuchal rigidity CHEST: Good equal expansion LUNGS: Clear and equal to auscultation CARDIAC: Normal S1 and S2 ABDOMEN: Soft nontender no guarding BACK: No CVA tenderness EXTREMITIES: She has bilateral below the knee amputations and wound cultures are in place. NEURO: Patient is following commands and answering questions appropriately. Alert and oriented x3 Cranial Nerves 2-12 grossly intact Medical Decision & Procedures ER Provider Diagnostic Interpretation: Radiology results as stated below per my review and radiologist interpretation: SINGLE VIEW CHEST CLINICAL HISTORY: Syncope. FINDINGS: An AP, portable, upright chest radiograph is compared to study dated 11/22/2016. The examination is degraded by portable technique and patient rotation. A right PICC line is unchanged in position. The tip of the catheter projects over the right atrium. The heart is top normal for projection and there is atherosclerotic calcification of the thoracic aorta. The pulmonary vascular is noncongested. Chronic interstitial thickening is unchanged. There is no airspace consolidation or large pleural effusion. No pneumothorax is seen. The skeletal structures are osteopenic. The bony thorax is grossly intact. IMPRESSION: No acute cardiopulmonary abnormality. Electronically signed by: Hermelindo Cowart M.D. 01/28/2017 12:23 PM Dictated Date/Time: 01/28/2017 12:22 PM Laboratory Results 01/28/17 12:40 Red Blood Count 3.13, Mean Corpuscular Volume 87.9, Mean Corpuscular Hemoglobin 27.5, Mean Corpuscular Hemoglobin Concent 31.3, Mean Platelet Volume 8.4, Neutrophils (%) (Auto) 79.3, Lymphocytes (%) (Auto) 9.8, Monocytes (%) (Auto) 5.2, Eosinophils (%) (Auto) 4.1, Basophils (%) (Auto) 0.5, Neutrophils # (Auto) 9.92, Lymphocytes # (Auto) 1.22, Monocytes # (Auto) 0.65, Eosinophils # (Auto) 0.51, Basophils # (Auto) 0.06 01/28/17 12:40 Test 01/28/17 12:18 01/28/17 12:40 01/28/17 14:10 Bedside Glucose 275 mg/dl (70-90) White Blood Count 12.50 K/uL (4.8-10.8) Red Blood Count 3.13 M/uL (4.2-5.4) Hemoglobin 8.6 g/dL (12.0-16.0) Hematocrit 27.5 % (37-47) Mean Corpuscular Volume 87.9 fL (80-100) Mean Corpuscular Hemoglobin 27.5 pg (25-34) Mean Corpuscular Hemoglobin Concent 31.3 g/dl (32-36) Platelet Count 1084 K/uL (130-400) Mean Platelet Volume 8.4 fL (7.4-10.4) Neutrophils (%) (Auto) 79.3 % Lymphocytes (%) (Auto) 9.8 % Monocytes (%) (Auto) 5.2 % Eosinophils (%) (Auto) 4.1 % Basophils (%) (Auto) 0.5 % Neutrophils # (Auto) 9.92 K/uL (1.4-6.5) Lymphocytes # (Auto) 1.22 K/uL (1.2-3.4) Monocytes # (Auto) 0.65 K/uL (0.11-0.59) Eosinophils # (Auto) 0.51 K/uL (0-0.5) Basophils # (Auto) 0.06 K/uL (0-0.2) RDW Standard Deviation 49.4 fL (36.4-46.3) RDW Coefficient of Variation 15.4 % (11.5-14.5) Immature Granulocyte % (Auto) 1.1 % Immature Granulocyte # (Auto) 0.14 K/uL (0.00-0.02) Red Blood Cell Morphology Unremarkable Anion Gap 8.0 mmol/L (3-11) Est Creatinine Clear Calc Drug Dose 88.7 ml/min Estimated GFR () 108.1 Estimated GFR (Non- 93.3 BUN/Creatinine Ratio 30.1 (10-20) Calcium Level 8.8 mg/dl (8.5-10.1) Total Bilirubin 0.2 mg/dl (0.2-1) Direct Bilirubin < 0.1 mg/dl (0-0.2) Aspartate Amino Transf (AST/SGOT) 12 U/L (15-37) Alanine Aminotransferase (ALT/SGPT) 17 U/L (12-78) Alkaline Phosphatase 103 U/L (45-117) Total Creatine Kinase 12 U/L (26-192) Creatine Kinase MB < 0.5 ng/ml (0.5-3.6) Creatine Kinase MB Ratio (0-3.0) Troponin I < 0.015 ng/ml (0-0.045) Total Protein 6.5 gm/dl (6.4-8.2) Albumin 2.0 gm/dl (3.4-5.0) Thyroid Stimulating Hormone (TSH) 1.430 uIu/ml (0.300-4.500) Urine Color DK YELLOW Urine Appearance CLEAR (CLEAR) Urine pH 5.5 (4.5-7.5) Urine Specific [place] 1.021 (1.000-1.030) Urine Protein 2+ (NEG) Urine Glucose (UA) TRACE (NEG) Urine Ketones NEG (NEG) Urine Occult Blood 2+ (NEG) Urine Nitrite NEG (NEG) Urine Bilirubin NEG (NEG) Urine Urobilinogen NEG (NEG) Urine Leukocyte Esterase SMALL (NEG) Urine WBC (Auto) >30 /hpf (0-5) Urine RBC (Auto) 10-30 /hpf (0-4) Urine Hyaline Casts (Auto) 10-30 /lpf (0-5) Urine Epithelial Cells (Auto) 0-5 /lpf (0-5) Urine Bacteria (Auto) NEG (NEG) Urine Renal Epithelial Cells /lpf (0-5) Urine Pathogenic Casts 0-3 GRANULAR CASTS /lpf (0) Labs reviewed by ED physician. Medications Administered Medications (Trade) Dose Ordered Sig/Denisse Route Start Time Stop Time Status Last Admin Dose Admin Sodium Chloride 1,000 ml @ 999 mls/hr Q1H1M STAT IV 01/28/17 11:58 01/28/17 12:58 DC 01/28/17 11:58 999 MLS/HR Ondansetron HCl (Zofran Inj) 4 mg NOW STAT IV 01/28/17 13:04 01/28/17 13:05 DC 01/28/17 13:57 4 MG Ceftriaxone Sodium (Rocephin Inj) 1 gm NOW STAT IV 01/28/17 14:39 01/28/17 14:41 DC 01/28/17 14:39 1 GM Trimethoprim/ Sulfamethoxazole (Septra Ds 800/ 160MG Tab) 1 tab NOW STAT PO 01/28/17 14:39 01/28/17 14:41 DC 01/28/17 14:39 1 TAB ED Course 1155: Past medical records reviewed. The patient was evaluated in room B4B. A complete history and physical examination was performed. 1158: NSS 1000 ml @ 999 mls/hr IV 1304: Zofran 4 mg IV 1353: I updated the patient on her results. 1414: The wound nurse has arrived in the department. 1423: I evaluated the patient with the wound nurse at this time. 1439: Septra Ds 800/160 mg tab 1 tab PO, Rocephin 1 gm IV 1501: I reassessed the patient at this time. She is feeling better and resting comfortably. I discussed the results and treatment plan with the patient. I answered all pertaining questions that she had. She expressed understanding and verbalized agreement. The patient will be discharged home. Medical Decision Differential diagnosis: Etiologies such as vasovagal event, infection, hypoglycemia, electrolyte abnormalities, cardiac sources, intracerebral event, toxicologic, neurologic, as well as others were entertained. Medication Reconciliation: I attest that I have personally reviewed the patient' s current medication list. Blood Pressure Screening: Patient was found to have normal blood pressure on screening and does not require follow up. This is a 66-year-old female who presents emergency department complaining of syncopal episode. The patient has a history of urinary tract infections and does have blood in her urine and therefore she was started on Bactrim. I suspect the patient's episodes more related to the fact that she did not eat today and it is past lunch and has a UTI. She was given normal saline bolus. The patient does feel much better after the bolus. She was ordered food in the emergency department and she has a slight elevation in WBC consistent with her baseline. Her HgB is also consistent with her baseline as well as a normal renal profile. I feel she is well enough to be discharged home for follow-up with primary care physician. Patient was in agreement with the treatment plan. Wound care nurse also examine the patient's wound and this does appear to be healing well. Impression Primary Impression: UTI (urinary tract infection) Additional Impression: Syncope Scribe Attestation The scribe's documentation has been prepared under my direction and personally reviewed by me in its entirety. I confirm that the note above accurately reflects all work, treatment, procedures, and medical decision making performed by me. Departure Information Dispostion Home / Self-Care Prescriptions Sulfa/Trimethoprim (Bactrim Ds 800MG/160MG) Tab 1 TAB PO BID for 10 Days, #20 TAB Prov: Eleazar Farmer MD 01/28/17 Referrals Lali Payne (PCP) Forms HOME CARE DOCUMENTATION FORM, IMPORTANT VISIT INFORMATION Patient Instructions ED UTI Cystitis Female, My [facility], Syncope Causes, Syncope Dx Additional Instructions Culture results are usually available in approx 48 hours You have been examined and treated today on an emergency basis only. This is not a substitute for, or an effort to provide, complete comprehensive medical care. It is impossible to recognize and treat all injuries or illnesses in a single emergency department visit. It is therefore important that you follow up closely with your PCP. Call as soon as possible for an appointment. Thank you for your time and consideration. I look forward to speaking with you again soon. Please don't hesitate to call us if you have any questions. Problem Qualifiers Primary Impression: UTI (urinary tract infection) Urinary tract infection type: acute cystitis Hematuria presence: with hematuria Qualified Codes: N30.01 - Acute cystitis with hematuria Additional Impression: Syncope Syncope type: unspecified Qualified Codes: R55 - Syncope and collapse
--- NOTE | 2017-01-28 12:24 | DIAGNOSTIC IMAGING REPORT ---
SINGLE VIEW CHEST CLINICAL HISTORY: Syncope. FINDINGS: An AP, portable, upright chest radiograph is compared to study dated 11/22/2016. The examination is degraded by portable technique and patient rotation. A right PICC line is unchanged in position. The tip of the catheter projects over the right atrium. The heart is top normal for projection and there is atherosclerotic calcification of the thoracic aorta. The pulmonary vascular is noncongested. Chronic interstitial thickening is unchanged. There is no airspace consolidation or large pleural effusion. No pneumothorax is seen. The skeletal structures are osteopenic. The bony thorax is grossly intact. IMPRESSION: No acute cardiopulmonary abnormality. Electronically signed by: Hermelindo Cowart M.D. 01/28/2017 12:23 PM Dictated Date/Time: 01/28/2017 12:22 PM
[2017-01-28] MEDS ORDERED: FERR325T18 PO (12:37)
[2017-01-28] MEDS ORDERED: [UNRECOGNIZED DRUG - OTHER] PO (12:45)
[2017-01-28] MEDS ORDERED: CAL PO (12:45)
[2017-01-28] MEDS ORDERED: ACET-1311 PO (12:46)
[2017-01-28] MEDS ORDERED: [UNRECOGNIZED DRUG - OTHER] INJ (12:55)
[2017-01-28] MEDS ORDERED: TRAM-10 PO (12:58)
[2017-01-28] MEDS ORDERED: ONDANSETRON INJ 2 MG/ML 2 ML VIAL IV STA (13:04)
[2017-01-28 13:21] LABS: BLOOD UREA NITROGEN 19 mg/dl (7-18); CREATININE 0.62 mg/dl (0.60-1.20); GLUCOSE 244 mg/dl (70-99)
[2017-01-28 13:22] LABS: ALT/SGPT 17 U/L (12-78); AST/SGOT 12 U/L (15-37); BUN/CREATININE RATIO 30.1 (10-20); CALCIUM 8.8 mg/dl (8.5-10.1); CARBON DIOXIDE 28 mmol/L (21-32); CHLORIDE 101 mmol/L (98-107); POTASSIUM 4.5 mmol/L (3.5-5.1); SODIUM 137 mmol/L (136-145)
[2017-01-28 13:32] LABS: ALKALINE PHOSPHATASE 103 U/L (45-117)
[2017-01-28 13:41] LABS: HEMATOCRIT 27.5 % (37-47); MEAN CELL VOLUME 87.9 fL (80-100); MEAN CORPUSCULAR HEMOGLOBIN 27.5 pg (25-34); MEAN CORPUSCULAR HGB CONC 31.3 g/dl (32-36); MEAN PLATELET VOLUME 8.4 fL (7.4-10.4); PLATELET COUNT 1084 K/uL (130-400); RED BLOOD COUNT 3.13 M/uL (4.2-5.4)
[2017-01-28 13:47] LABS: BASO % 0.5 %; BASO ABS # 0.06 K/uL (0-0.2); COMPLETE YES; EOS % 4.1 %; IG% 1.1 %; LYMPH % 9.8 %; LYMPH ABS # 1.22 K/uL (1.2-3.4); MONO % 5.2 %; NEUT % 79.3 %
[2017-01-28 14:28] LABS: URINE APPEARANCE CLEAR (CLEAR); URINE BILIRUBIN NEG (NEG); URINE COLOR DK YELLOW; URINE NITRITE NEG (NEG); URINE PH 5.5 (4.5-7.5); URINE SPECIFIC GRAVITY 1.021 (1.000-1.030); UROBILINOGEN NEG (NEG); ZZURINE CULT IF INDIC CATH YES
[2017-01-28 14:29] LABS: MANUAL MICROSCOPIC REQUIRED? NO; REVIEW REQ? YES
[2017-01-28] MEDS ORDERED: SULFAMETHOXAZOLE/TRIMETHOPRIM DS 800/160MG TAB PO STA (14:39)
[2017-01-28] MEDS ORDERED: CEFTRIAXONE SOD INJ 1 GM ADDVIAL IV STA (14:39)
[2017-01-28] MEDS ORDERED: SULF800T23 PO (14:55)
[2017-01-28 15:07] LABS: URINE PATH CASTS 0-3 GRANULAR CASTS /lpf (0)
[2017-01-28 15:08] LABS: URINE EPITHELIAL CELL AUTO 0-5 /lpf (0-5)
[2017-01-28 16:21] VITALS: BP 117/69; PULSE 70; O2SAT 97
[2017-02-16] MEDS ORDERED: DOXY100C76 PO (14:56)
[2017-03-03] MEDS ORDERED: DIPH25CA65 PO (08:52)
[2017-03-03] MEDS ORDERED: DPRSCR15 TOP (08:53)
[2017-03-03] MEDS ORDERED: BISA10SU38 PR (08:56)
[2017-03-03] MEDS ORDERED: SODI1ENE RE (08:58)
[2017-03-03] MEDS ORDERED: GLGKIT IM (08:59)
[2017-03-03] MEDS ORDERED: DEXT40GE PO (09:00)
[2017-03-03] MEDS ORDERED: MOMLX PO (09:02)
[2017-03-03] MEDS ORDERED: POLY335019 PO (09:03)
[2017-03-03] MEDS ORDERED: NYST1POW7 TOP (09:04)
== END 2017-01-28 16:20 | disposition home or self-care (01) ==
LOC: EDBD 11:52 → C.EDB 11:53
DX: N30.01 Acute cystitis with hematuria (principal); R55 Syncope and collapse; I48.91 Unspecified atrial fibrillation; E11.9 Type 2 diabetes mellitus without complications; K21.9 Gastro-esophageal reflux disease without esophagitis; Z86.718 Personal history of other venous thrombosis and embolism; Z89.512 Acquired absence of left leg below knee; Z89.511 Acquired absence of right leg below knee; Z86.14 Personal history of Methicillin resistant Staphylococcus aureus infection; Z79.82 Long term (current) use of aspirin; Z79.4 Long term (current) use of insulin; Z79.899 Other long term (current) drug therapy; Y83.5 Amputation of limb(s) as the cause of abnormal reaction of the patient, or of later complication, without mention of misadventure at the time of the procedure; T81.30XA Disruption of wound, unspecified, initial encounter